=== PATIENT | female | born 1980 | race Caucasian/White ===

== ENCOUNTER 2017-08-17 15:25 | Emergency (ER) | payer MEDICARE, MEDICAID, SELFPAY ==
[2017-08-17 15:27] VITALS: BP 151/95; PULSE 98; RESP 16; TEMP 36.9; O2SAT 98; BMI 35.0
--- NOTE | 2017-08-17 15:44 | CT_ITS ---
STUDY: CT ABDOMEN AND PELVIS WITHOUT CONTRAST REASON FOR EXAM: Female, 36 years old. Right-sided abdominal pain. RADIATION DOSAGE (If Supplied By Facility): CTDIvol = ( 19.46 ) mGy, DLP = ( 1079.55 ) mGycm TECHNIQUE: Transaxial images were obtained from the dome of the diaphragm to the symphysis pubis without oral contrast, and without intravenous contrast. Sagittal and coronal images were reconstructed. Individualized dose optimization techniques were used for this CT. COMPARISON: 09/09/2013. FINDINGS: The visualized lung bases are unremarkable. The visualized portions of the heart are within normal limits. There is decreased attenuation of the liver consistent with steatosis. Marked hepatomegaly. There are surgical clips in the gallbladder fossa consistent with a prior cholecystectomy. Normal spleen. Normal pancreas. Normal bilateral adrenal glands. No acute abnormality of the kidneys. Both kidneys appear to have numerous punctate nonobstructing stones in all segments. No hydronephrosis on either side. Normal renal contours. Evaluation of the GI tract is limited by absence of oral contrast. Cannot exclude stomach wall thickening. No dilated loops of bowel or evidence for obstruction. Cannot exclude segmental thickening of the [place] of the small or large bowel. Cannot exclude enteritis or colitis. Moderate diffuse fecal retention. Appendix within normal limits. Normal abdominal aorta. Normal inferior vena cava. Normal retroperitoneum. Stable appearance of embolization coils in the left retroperitoneum and left lower quadrant. Normal urinary bladder. There is absence of the uterus consistent with a prior hysterectomy. Normal abdominal wall. There are diffuse degenerative changes of the visualized lumbar spine. CT/Abdomen/Pelvis without Cont IMPRESSION: No definite acute abnormality. Marked hepatomegaly. Numerous tiny bilateral renal stones without current obstruction. Electronically Signed: Guillermo Echevarria MD at 17:26 EDT , Service support ,
--- NOTE | 2017-08-17 15:47 | ED.DCSUM_ITS ---
- ER Visit Summary Date of Service: 08/17/17 Chief Complaint: Abdominal pain History of Present Illness: The patient is a 36 F who presents with right upper quadrant abdominal pain that began earlier this morning. Patient states she had some mild pain prior to this developed sudden onset of right upper quadrant sharp pain this morning. Patient describes the pain as cramping and stabbing. Patient states the pain radiates into her right shoulder. Patient denies any nausea or vomiting. Patient states her pain is worse with movement. Patient denies any diarrhea or constipation. Patient denies any dysuria or hematuria. Physical Examination: Vital signs are stable. Patient is afebrile. Patient is in no acute distress. Oral mucosa is pink and moist. Neck is supple. Trachea is midline. Heart was regular rate and rhythm. Lungs are clear and equal bilaterally. There is good respiratory effort noted. Abdomen is soft. Sounds are normal. There is tenderness over the right upper quadrant. There is no rebound or guarding. There is a positive Gorman sign. Cranial nerves II through XII are intact. There are no focal motor or sensory deficits noted. The remaining physical exam is within normal limits. Test Results: CBC and comprehensive metabolic profile were essentially within normal limits with the exception of an elevated glucose of 517. Alk phos was only slightly elevated at 184. Lipase was slightly elevated at 403. Urinalysis does show evidence of urinary tract infection. CT scan of the abdomen and pelvis does not show any acute abnormalities. Emergency Department Course and Treatment: She was given a dose of [place] initially. Patient was given an injection of Humalog here. Patient felt better on reevaluation. Repeat BGT was 341. Patient was given a second dose of [place] here. Treatment Plan: Patient was given a prescription for Cipro. Patient was given a prescription for 3 days of [place]. Disposition: Discharge home Impression: Right upper quadrant abdominal pain This note was generated with [employer] dictation software. It may contain incorrect words, spelling, and punctuation that were not noted in review of the chart prior to signing ED Disposition - Plan for ED Patient: Disposition: Home or Assisted Living Chief Complaint: Abd Pain Diagnosis: Right upper quadrant abdominal pain of unknown etiology Instructions: ED Abdominal Pain Unkn Cause Prescriptions: Hydrocodone/Acetaminophen [[place] 5-325 Tablet] 1 ea PO Q6H PRN PRN #12 tab PRN Reason: Pain Ciprofloxacin [Cipro] 500 mg PO BID #6 tab Referrals: Chris Espinal MD [Primary Care Provider] -
[2017-08-17 16:13] LABS: Basophil# 0.04 X10^3/uL; Basophil% 0.6 % (0-1); Eosinophil# 0.52 X10^3/uL; Eosinophils% 7.2 % (0-5); Hematocrit 40.3 % (37-47); Hemoglobin 13.3 g/dl (12.0-15.0); Lymphocyte % 30.5 % (19-41); Mean Corpuscular Hgb 26.7 pg (27.0-32.0); Mean Corpuscular Volume 80.9 fL (81-99); Mean Platelet Vol. 11.2 fl (6.2-12.0); Monocyte% 5.5 % (0-10); Neutrophil # 4.01 X10^3/uL (2.7-7.7); Neutrophil % 55.6 % (47-70); Platelet Count 225 K/mm3 (150-450); RBC Distribution Width CV 14.3 % (11.6-14.6); RBC Distribution Width SD 40.9 fl (35.1-43.9); Red Blood Count 4.98 M/mm3 (4.2-5.4); White Blood Count 7.2 K/mm3 (4.4-11.0)
[2017-08-17 16:17] LABS: POSITIVE COUNT NO; POSITIVE DIFFERENTIAL NO; POSITIVE MORPHOLOGY NO
[2017-08-17 16:40] LABS: ALB/GLOB Ratio 0.9 RATIO (0.9-2.4); AST(SGOT) 21 U/L (15-37); Alanine Aminotransfer ALT/SGPT 38 U/L (13-56); Albumin, Serum 3.7 g/dL (3.2-5.0); Alkaline Phosphatase 184 U/L (45-117); Anion Gap 10 (5-15); BUN 21 mg/dL (7-18); BUN/Creat Ratio 17.8 RATIO (10-20); Calcium,Total 8.6 mg/dL (8.5-10.1); Chloride 99 mmol/L (98-107); Creatinine, Serum 1.18 mg/dL (0.55-1.02); EST Glomerular Filtration Rate 55 mL/min (>60); Est Glom Filt Rate - Afr Amer 67 mL/min (>60); Estimated Creatinine Clearance 62.29 ml/min; Globulin 4.2 g/dL (2.2-4.2); Glucose 517 mg/dL (74-106); Lipase 403 U/L (73-393); Potassium 4.4 mmol/L (3.5-5.1); Protein, Total 7.9 g/dL (6.4-8.2); Sodium Level 132 mmol/L (136-145)
[2017-08-17] MEDS: HYDROcodone Bitartrate/Apap 5/325 Tablet PO ×2 (17:41→19:41)
[2017-08-17 17:43] VITALS: BP 125/82; PULSE 88; RESP 18; O2SAT 96
[2017-08-17 17:47] LABS: Mucous, Urine 0 SEEN /hpf (<or=2+)
[2017-08-17 17:51] LABS: Color, Urine Yellow (Yellow); Glucose, Dipstick 1000 mg/dl (Normal); Ketone-Dipstick Negative (Negative); Leukocyte Esterase-Dipstick 500 /ul (Negative); Nitrite-Dipstick Negative (Negative); Occult Blood-Urine 10 /ul (Negative); Protein-Dipstick 15 mg/dl (Negative); Specific Gravity, Urine 1.015 (1.002-1.030); Urine Bilirubin Dipstick Negative (Negative); Urine Clarity Sl. Cloudy (Clear); Urine Urobilinogen Normal (Normal)
[2017-08-17 18:15] LABS: Bacteria RARE /hpf (None Seen); Red Blood Cells-Urine 0-5 SEEN /hpf (0-5); Squamous Epithelial Cells - UA 0-5 SEEN /hpf (5-10); White Blood Cells 5-10 SEEN /hpf (0-5)
[2017-08-17 19:15] VITALS: BP 122/77; PULSE 86; RESP 16; O2SAT 98
[2017-08-17 19:20] LABS: Bedside Glucose 341 mg/dL (70-110)
[2017-08-17 19:38] VITALS: BP 122/77; PULSE 86; RESP 16; O2SAT 98
== END 2017-08-17 19:45 | disposition home or self-care (01) ==
PROVIDERS: Emergency Provider Emergency Medicine; Family Provider Family Medicine; PCP Family Medicine
DX: R10.11 Right upper quadrant pain (principal); N39.0 Urinary tract infection, site not specified; E11.9 Type 2 diabetes mellitus without complications; M79.7 Fibromyalgia; Q27.30 Arteriovenous malformation, site unspecified; M06.9 Rheumatoid arthritis, unspecified
CPT/HCPCS: 74176; 80053; 81001; 82962; 83690; 85025; 99284; A4216

== ENCOUNTER 2017-09-07 21:17 | Emergency (ER) | payer MEDICARE, SELFPAY ==
[2017-09-07 21:18] VITALS: BP 136/81; PULSE 102; RESP 17; TEMP 38.1; O2SAT 98; BMI 35.5
--- NOTE | 2017-09-07 21:21 | NURSING ---
CALLED FOR EKG PER RN REQUEST, PULLED OLD EKG'S FOR
--- NOTE | 2017-09-07 21:44 | EKG12_ITS ---
Test Reason : CP Blood Pressure : / mmHG Vent. Rate : 102 BPM Atrial Rate : 102 BPM P-R Int : 128 ms QRS Dur : 074 ms QT Int : 320 ms P-R-T Axes : 042 025 031 degrees QTc Int : 417 ms Sinus tachycardia Otherwise normal ECG Confirmed by ANIKA ELIZONDO, STACI ([id number]), subeditor ALEKSANDAR ZAMBRANO ([id number]) on 09/10/2017 3:22:59 PM Referred By: Confirmed By:STACI DONALDSON MD
--- NOTE | 2017-09-07 21:44 | RAD_ITS ---
STUDY: X-RAY CHEST REASON FOR EXAM: Female, 36 years old. Pain. TECHNIQUE: Single AP portable view of the chest. COMPARISON: February 06, 2015. FINDINGS: The lungs are clear and expanded. There is no demonstrated pleural abnormality. Normal size heart. Normal mediastinum and jose daniel. Normal visualized pulmonary arteries. Normal visualized aortic arch and descending thoracic aorta. Normal visualized thoracic spine. Normal visualized ribs, clavicles, and shoulders. There is no demonstrated abnormality of the visualized soft tissue structures of the upper abdomen. RAD/Chest 1 View (Portable) IMPRESSION: Normal x-ray examination of the chest. Electronically Signed: Calderon Mojica MD at 22:23 EDT , Service support ,
--- NOTE | 2017-09-07 21:48 | ED.DCSUM_ITS ---
- ER Visit Summary Date of Service: 09/07/17 Chief Complaint: Chest pain History of Present Illness: The patient is a 36 F presents with continuous chest pain for the past 2 hours. Pain is in the left side of her chest. Pain started at rest. She denies shortness of breath. No nausea, vomiting, diarrhea. She does have a fever which she was unaware of. She denies cough. Nothing seems to make this better or worse. It is not worsened by deep inspiration. She has history of diabetes, hypercholesteremia. No family history of early heart disease. She is not a smoker. No PE/DVT risk factors. Physical Examination: Vitals are stable. Temperature 100.5. Alert no acute distress. HEENT exam is unremarkable. Neck is supple. Lungs are clear and equal bilaterally. Heart is regular rate and rhythm. Abdomen is soft nontender nondistended. Extremities are unremarkable. Skin is warm and dry. No rash No focal neurologic deficit. Remainder of exam is unremarkable. Emergency Department Course and Treatment: Patient is given aspirin, Dilaudid, Zofran. Her heart score is 1. EKG is sinus tachycardia rate of 102. She was given IV fluids, Tylenol. CBC is normal. Chemistries show glucose 303, creatinine 1.05. Troponin is negative. D-dimer is 0.49. Chest x-ray is normal. Repeat temperature is 98.5. She was given Toradol IV. She is feeling improved on reevaluation. Repeat EKG is sinus rate of 85 with no acute changes. Will obtain delta troponin. Disposition: [] Impression: Atypical chest pain This note was generated with [employer] software. It may contain incorrect words, spelling, and punctuation that were not noted in review of the chart prior to signing <Cookie Finney - Last Filed: 09/08/17 00:17> - ER Visit Summary Date of Service: 09/08/17 Patient was endorsed to me by the outgoing physician. Delta troponin was checked was found to be negative. Patient was given a dose of [place], she was discharged with outpatient follow-up. Disposition: Discharged Diagnosis: 1. Atypical chest pain This note was generated with [employer] software. It may contain incorrect words, spelling, and punctuation that were not noted in review of the chart prior to signing <Fam Velasquez - Last Filed: 09/08/17 01:46> ED Disposition <Cookie Finney - Last Filed: 09/08/17 00:17> <Fam Velasquez - Last Filed: 09/08/17 01:46> - Plan for ED Patient: Disposition: Home or Assisted Living Chief Complaint: Chest Pain Diagnosis: Chest pain Instructions: ED Chest Pain Atypical Unkn Cause Referrals: Chris Espinal MD [Primary Care Provider] - 3-5 Days
[2017-09-07 21:55] LABS: Absolute Lymphocyte Count 3.32 X10^3/ul (0.83-4.51); Absolute Neutrophil Count 3.8 X10^3/uL (2.0-7.7); Basophil# 0.06 X10^3/uL; Basophil% 0.7 % (0-1); Eosinophil# 0.47 X10^3/uL; Eosinophils% 5.8 % (0-5); Hematocrit 40.3 % (37-47); Hemoglobin 12.9 g/dl (12.0-15.0); Lymphocyte # 3.32 X10^3/ul (4.0); Lymphocyte % 40.7 % (19-41); Mean Corpuscular Hgb 26.5 pg (27.0-32.0); Mean Corpuscular Volume 82.8 fL (81-99); Mean Platelet Vol. 10.6 fl (6.2-12.0); Monocyte# 0.47 X10^3/uL; Monocyte% 5.8 % (0-10); Neutrophil % 46.6 % (47-70); POSITIVE COUNT NO; POSITIVE DIFFERENTIAL NO; POSITIVE MORPHOLOGY NO; Platelet Count 297 K/mm3 (150-450); RBC Distribution Width CV 15.2 % (11.6-14.6); Red Blood Count 4.87 M/mm3 (4.2-5.4); White Blood Count 8.2 K/mm3 (4.4-11.0)
[2017-09-07] MEDS: 0.9% Normal Saline 1,000 ML 1000 ML IV (21:58)
[2017-09-07] MEDS: Ondansetron 4 MG/2 ML Vial IV (21:58)
[2017-09-07] MEDS: Aspirin 81 MG TAB.CHEW 324 MG PO (21:58)
[2017-09-07 21:59] LABS: D-Dimer Quantitative (DVT/PE) 0.49 FEU/ug/m (0.27-0.49)
[2017-09-07] MEDS: HYDROmorphone 1 MG/ML Syringe IV (21:59)
[2017-09-07 22:05] LABS: Anion Gap 8 (5-15); BUN 14 mg/dL (7-18); BUN/Creat Ratio 13.3 RATIO (10-20); Calcium,Total 8.6 mg/dL (8.5-10.1); Chloride 107 mmol/L (98-107); Creatinine, Serum 1.05 mg/dL (0.55-1.02); EST Glomerular Filtration Rate 63 mL/min (>60); Est Glom Filt Rate - Afr Amer 76 mL/min (>60); Estimated Creatinine Clearance 70.01 ml/min; Glucose 303 mg/dL (74-106); Potassium 4.2 mmol/L (3.5-5.1); Sodium Level 139 mmol/L (136-145)
[2017-09-07] MEDS: Acetaminophen 500 MG Tablet 1000 MG PO (22:45)
[2017-09-07 22:46] VITALS: BP 112/71; PULSE 84; RESP 18; O2SAT 97
[2017-09-07 23:16] VITALS: BP 108/74; PULSE 89; RESP 16; O2SAT 94
[2017-09-07 23:24] LABS: Mucous, Urine 0 SEEN /hpf (<or=2+)
[2017-09-07 23:29] LABS: Color, Urine Yellow (Yellow); Glucose, Dipstick 1000 mg/dl (Normal); Ketone-Dipstick Negative (Negative); Leukocyte Esterase-Dipstick 25 /ul (Negative); Nitrite-Dipstick Negative (Negative); Occult Blood-Urine 10 /ul (Negative); Protein-Dipstick 15 mg/dl (Negative); Urine Bilirubin Dipstick Negative (Negative); Urine Clarity Sl. Cloudy (Clear); Urine Urobilinogen Normal (Normal)
[2017-09-07 23:43] LABS: Bacteria 2+ /hpf (None Seen); Red Blood Cells-Urine 0-5 SEEN /hpf (0-5); Squamous Epithelial Cells - UA 5-10 SEEN /hpf (5-10); White Blood Cells 0-5 SEEN /hpf (0-5)
--- NOTE | 2017-09-07 23:43 | EKG12_ITS ---
Test Reason : REPEAT EKG Blood Pressure : / mmHG Vent. Rate : 085 BPM Atrial Rate : 085 BPM P-R Int : 132 ms QRS Dur : 076 ms QT Int : 364 ms P-R-T Axes : 054 021 018 degrees QTc Int : 433 ms Normal sinus rhythm Normal ECG Confirmed by ANIKA ELIZONDO, STACI ([id number]), newspaper editor managing ALEKSANDAR ZAMBRANO ([id number]) on 09/10/2017 3:23:49 PM Referred By: JANA Confirmed By:STACI DONALDSON MD
[2017-09-07] MEDS: Ketorolac 30 MG/ML Syringe IV (23:56)
--- NOTE | 2017-09-07 23:57 | ED.DEP ---
ED Disposition - Plan for ED Patient: Chief Complaint: Chest Pain Instructions: ED Chest Pain Atypical Unkn Cause Referrals: Chris Espinal MD [Primary Care Provider] -
[2017-09-08 00:11] VITALS: BP 112/71; PULSE 90; RESP 17; O2SAT 95
[2017-09-08 01:37] VITALS: BP 107/82; PULSE 78; RESP 16; O2SAT 96
[2017-09-08] MEDS: HYDROcodone Bitartrate/Apap 5/325 Tablet PO (01:57)
[2017-09-08 01:59] VITALS: BP 107/82; PULSE 76; RESP 16; O2SAT 96
--- NOTE | 2017-09-08 01:59 | ED.RN ---
IV DC'ED, CATHETER INTACT, SMALL GAUZE DRESSING PLACED. DISCHARGE INSTRUCTIONS GIVEN TO AND REVIEWED WITH PATIENT, PATIENT DENIES QUESTIONS OR CONCERNS AND VOICES UNDERSTANDING OF DISCHARGE INSTRUCTIONS. PT AMBULATES OUT OF ROOM WITHOUT DIFFICULTY.
== END 2017-09-08 02:00 | disposition home or self-care (01) ==
PROVIDERS: Emergency Medicine; Emergency Provider Emergency Medicine; Family Provider Family Medicine; PCP Family Medicine
DX: R07.89 Other chest pain (principal); E11.9 Type 2 diabetes mellitus without complications; E78.00 Pure hypercholesterolemia, unspecified; M79.7 Fibromyalgia
CPT/HCPCS: 36415; 71045; 80048; 81001; 84484; 85025; 85379; 93005; 96361; 96374; 96375; 99285; J7030; A4216; J2405

== ENCOUNTER 2017-10-08 01:04 | Emergency (ER) | payer MEDICARE, SELFPAY ==
[2017-10-08 01:06] VITALS: BP 140/92; PULSE 86; RESP 16; TEMP 36.8; O2SAT 97; BMI 34.5
--- NOTE | 2017-10-08 01:34 | CT_ITS ---
STUDY: CT ABDOMEN AND PELVIS WITHOUT CONTRAST REASON FOR EXAM: Female, 37 years old. Right flank pain, sharp, history of hysterectomy, oophorectomy right, cholecystectomy, RADIATION DOSAGE (If Supplied By Facility): CTDIvol = ( 16.96 ) mGy, DLP = ( 953.47 ) mGycm TECHNIQUE: Transaxial 2.5 mm images were obtained from the dome of the diaphragm to the symphysis pubis without oral contrast, and without intravenous contrast. Sagittal and coronal images were reconstructed. Noncontrast Individualized dose optimization techniques were used for this CT. COMPARISON: CT abdomen pelvis 06/19/2017. 09/09/2013. 04/25/2013. FINDINGS: Minimal stable groundglass opacification in the right base. There is coronary artery calcification. Stable minimal anterior right lateral pericardial thickening. There is decreased attenuation of the enlarged liver consistent with steatosis. Right hepatic lobe measures craniocaudally 20.5 cm. There are surgical clips in the gallbladder fossa consistent with a prior cholecystectomy. Normal spleen. Normal pancreas. Normal bilateral adrenal glands. There is no right obstructive uropathy, right renal or ureteral calculi. Punctate nonobstructing right renal calculi. Normal visualized stomach. Normal small intestine. Normal colon. The appendix is visualized and appears normal. Image 96- 114 series 2. The appendix courses into the subhepatic space. Normal abdominal aorta. Normal inferior vena cava. Normal retroperitoneum. Metallic coils along the proximal and distal left gonadal vessels consistent with embolization. Normal urinary bladder. There is absence of the uterus consistent with a prior hysterectomy. Normal appearing bilateral adnexa. Surgical changes along the right adnexa. There is a small umbilical hernia containing fat. Obesity. There are degenerative changes of the visualized lumbar spine. CT/Abdomen/Pelvis without Cont IMPRESSION: 1. There is no obstructive uropathy, obstructive renal or ureteral calculi. 2. There is no appendicitis, colitis, diverticulitis, ascites, abscess, collection, perforation or obstruction. 3. Punctate nonobstructing left renal calculi, hepatomegaly, hepatic steatosis and postsurgical changes are stable findings. 4. Small fat-containing umbilical hernia, obesity and degenerative changes are stable. Electronically Signed: Melita Vuong MD at 4:01 EDT , Service support ,
[2017-10-08 01:39] LABS: Mucous, Urine 0 SEEN /hpf (<or=2+); Red Blood Cells-Urine 0 SEEN /hpf (0-5)
[2017-10-08] MEDS: HYDROmorphone 1 MG/ML Syringe IV (01:40)
[2017-10-08] MEDS: Ondansetron 4 MG/2 ML Vial IV (01:40)
[2017-10-08 01:41] LABS: Color, Urine Yellow (Yellow); Glucose, Dipstick 1000 mg/dl (Normal); Ketone-Dipstick Negative (Negative); Leukocyte Esterase-Dipstick 100 /ul (Negative); Nitrite-Dipstick Negative (Negative); Occult Blood-Urine Negative /ul (Negative); Protein-Dipstick Negative (Negative); Urine Bilirubin Dipstick Negative (Negative); Urine Clarity Sl. Cloudy (Clear); Urine Urobilinogen Normal (Normal)
[2017-10-08 01:41] LABS: Absolute Lymphocyte Count 4.71 X10^3/ul (0.83-4.51); Absolute Neutrophil Count 9.5 X10^3/uL (2.0-7.7); Basophil% 0.6 % (0-1); Eosinophils% 1.9 % (0-5); Hematocrit 42.7 % (37-47); Hemoglobin 14.5 g/dl (12.0-15.0); Lymphocyte # 4.71 X10^3/ul (4.0); Lymphocyte % 29.7 % (19-41); Mean Corpuscular Hgb 26.4 pg (27.0-32.0); Mean Corpuscular Volume 77.8 fL (81-99); Mean Platelet Vol. 10.6 fl (6.2-12.0); Monocyte# 1.05 X10^3/uL; Monocyte% 6.6 % (0-10); Neutrophil # 9.46 X10^3/uL (2.7-7.7); Neutrophil % 59.7 % (47-70); Platelet Count 364 K/mm3 (150-450); RBC Distribution Width CV 15.5 % (11.6-14.6); RBC Distribution Width SD 43.2 fl (35.1-43.9); Red Blood Count 5.49 M/mm3 (4.2-5.4); White Blood Count 15.9 K/mm3 (4.4-11.0)
[2017-10-08 01:43] LABS: POSITIVE COUNT NO; POSITIVE DIFFERENTIAL NO; POSITIVE MORPHOLOGY NO
[2017-10-08 01:52] LABS: Anion Gap 10 (5-15); BUN 21 mg/dL (7-18); Chloride 100 mmol/L (98-107); Creatinine, Serum 1.05 mg/dL (0.55-1.02); EST Glomerular Filtration Rate 63 mL/min (>60); Est Glom Filt Rate - Afr Amer 76 mL/min (>60); Estimated Creatinine Clearance 69.34 ml/min; Glucose 263 mg/dL (74-106); Potassium 3.9 mmol/L (3.5-5.1); Sodium Level 135 mmol/L (136-145)
[2017-10-08 01:56] LABS: Bacteria RARE /hpf (None Seen); Squamous Epithelial Cells - UA 0-5 SEEN /hpf (5-10); White Blood Cells 5-10 SEEN /hpf (0-5)
[2017-10-08 03:11] VITALS: RESP 17
[2017-10-08] MEDS: oxyCODONE 5 MG Tablet PO (03:42)
--- NOTE | 2017-10-08 04:17 | ED.DCSUM_ITS ---
- ER Visit Summary Date of Service: 10/08/17 Chief Complaint: Abdominal pain History of Present Illness: The patient is a 37 F right mid abdominal pain 1 hour prior to arrival with nausea. No vomiting or diarrhea. No urinary symptoms. Denies history of kidney stones. States pain is sharp and 7 out of 10. History of diabetes with gastroparesis. History of GI bleeds in the past. Physical Examination: General: Alert and oriented ?3, mild distress HEENT: Normocephalic, atraumatic. Moist mucosa membranes Neck: supple, nontender. Cardiovascular: Regular rate and rhythm, no murmurs Respiratory: Normal breath sounds, symmetric, no distress Abdomen: Soft, mild right mid abdominal tenderness, nondistended. Negative Gorman's or McBurney's. No groin tenderness. Back: No CVA tenderness bilaterally Extremities: Nontender, no edema, pulses intact ?4 Neuro: no focal neurological deficits. Test Results: WBC 15.9. Hemoglobin 14.5. Creatinine 1.05. UA no leukocytes 100, WBCs 5-10. Urine culture pending. CT abdomen pelvis no acute process. Emergency Department Course and Treatment: Patient sudden onset of pain states 7 out of 10. Records reviewed noted she had similar complaints approximately [address] scan noting nephrolithiasis. Discuss risks and benefits of imaging she agrees to proceed. Renal stone protocol CT scan results negative. Urine notes leukocytes and white blood cell counts. She is asymptomatic. Urine culture sent. No antibiotics at this time. History of Dilaudid and given oral oxycodone. Discussed negative workup with patient and follow-up with her PCP. She will use Tylenol as needed. All questions were answered. Treatment Plan: [] Disposition: Discharge Impression: Nonspecific abdominal pain This note was generated with [employer] dictation software. It may contain incorrect words, spelling, and punctuation that were not noted in review of the chart prior to signing ED Disposition - Plan for ED Patient: Disposition: Home or Assisted Living Chief Complaint: Flank Pain Diagnosis: Nonspecific abdominal pain Instructions: ED Abdominal Pain Unkn Cause Referrals: Chris Espinal MD [Primary Care Provider] - 3-5 Days
[2017-10-08 04:28] VITALS: BP 115/60; PULSE 83; RESP 17; O2SAT 97
== END 2017-10-08 04:29 | disposition home or self-care (01) ==
PROVIDERS: Emergency Provider Emergency Medicine; Family Provider Family Medicine; PCP Family Medicine
DX: R10.9 Unspecified abdominal pain (principal); E11.43 Type 2 diabetes mellitus with diabetic autonomic (poly)neuropathy; K31.84 Gastroparesis; Z79.4 Long term (current) use of insulin; Z79.891 Long term (current) use of opiate analgesic; Z79.899 Other long term (current) drug therapy
CPT/HCPCS: 74176; 80048; 81001; 85025; 87086; 87088; 96374; 96375; 99285; J7030; J2405

== ENCOUNTER 2017-10-24 09:40 | Emergency (ER) | payer MEDICARE, SELFPAY ==
[2017-10-24 09:41] VITALS: BP 142/96; PULSE 87; RESP 15; TEMP 35.5; BMI 34.4
--- NOTE | 2017-10-24 09:51 | ED.DEP ---
ED Disposition - Plan for ED Patient: Chief Complaint: Dental Instructions: ED Tooth Pain Prescriptions: Hydrocodone Bitart/Apap 5-325 [[place] 5MG-325MG] 1 tablet PO Q6H PRN PRN 2 Days #6 tablet PRN Reason: Pain Penicillin V Potassium 500 mg PO 4X/DAY #40 tablet Referrals: Chris Espinal MD [Primary Care Provider] -
--- NOTE | 2017-10-24 09:53 | DCINST.ED_ITS ---
ED Disposition - Plan for ED Patient: Chief Complaint: Dental Instructions: ED Tooth Pain Prescriptions: Hydrocodone Bitart/Apap 5-325 [[place] 5MG-325MG] 1 tablet PO Q6H PRN PRN 2 Days # 6 tablet PRN Reason: Pain Penicillin V Potassium 500 mg PO 4X/DAY #40 tablet Referrals: Chris Espinal MD [Primary Care Provider] -
--- NOTE | 2017-10-24 09:54 | ED.VISSUMM ---
- ER Visit Summary Date of Service: 10/24/17 Chief Complaint: Dental pain History of Present Illness: The patient is a 37 F presenting with dental pain. Patient states this started yesterday. Pain is in her front 2 teeth. She denies fever. She has sensation of swelling to the right maxilla. She has tried Aleve and ibuprofen at home. She does not currently have a dentist. No other complaints. Physical Examination: Vitals are stable. Patient is afebrile. Alert no acute distress. HEENT exam: tenderness to front 2 teeth, no fluctuance of gums. No sublingual edema. No facial swelling Neck is supple. Lungs are clear and equal bilaterally. Heart is regular rate and rhythm. Extremities are unremarkable. Remainder of exam is unremarkable. Emergency Department Course and Treatment: She is advised to continue ibuprofen. She is given a short course of [place]. She given prescription for penicillin. Advised to follow-up with a dentist, she is given a dental referral list. Advised return ED if worsening complaints. Disposition: Discharge home Impression: Odontalgia This note was generated with [employer] dictation software. It may contain incorrect words, spelling, and punctuation that were not noted in review of the chart prior to signing ED Disposition - Plan for ED Patient: Chief Complaint: Dental Instructions: ED Tooth Pain Prescriptions: Hydrocodone Bitart/Apap 5-325 [[place] 5MG-325MG] 1 tablet PO Q6H PRN PRN 2 Days #6 tablet PRN Reason: Pain Penicillin V Potassium 500 mg PO 4X/DAY #40 tablet Referrals: Chris Espinal MD [Primary Care Provider] -
--- NOTE | 2017-10-24 09:57 | ED.DCSUM_ITS ---
- ER Visit Summary Date of Service: 10/24/17 Chief Complaint: Dental pain History of Present Illness: The patient is a 37 F presenting with dental pain. Patient states this started yesterday. Pain is in her front 2 teeth. She denies fever. She has sensation of swelling to the right maxilla. She has tried Aleve and ibuprofen at home. She does not currently have a dentist. No other complaints. Physical Examination: Vitals are stable. Patient is afebrile. Alert no acute distress. HEENT exam: tenderness to front 2 teeth, no fluctuance of gums. No sublingual edema. No facial swelling Neck is supple. Lungs are clear and equal bilaterally. Heart is regular rate and rhythm. Extremities are unremarkable. Remainder of exam is unremarkable. Emergency Department Course and Treatment: She is advised to continue ibuprofen. She is given a short course of [place]. She given prescription for penicillin. Advised to follow-up with a dentist, she is given a dental referral list. Advised return ED if worsening complaints. Disposition: Discharge home Impression: Odontalgia This note was generated with [employer] dictation software. It may contain incorrect words, spelling, and punctuation that were not noted in review of the chart prior to signing ED Disposition - Plan for ED Patient: Chief Complaint: Dental Instructions: ED Tooth Pain Prescriptions: Hydrocodone Bitart/Apap 5-325 [[place] 5MG-325MG] 1 tablet PO Q6H PRN PRN 2 Days # 6 tablet PRN Reason: Pain Penicillin V Potassium 500 mg PO 4X/DAY #40 tablet Referrals: Chris Espinal MD [Primary Care Provider] -
[2017-10-24 10:07] VITALS: RESP 16
== END 2017-10-24 10:09 | disposition home or self-care (01) ==
LOC: ED 09:55
PROVIDERS: Emergency Provider Emergency Medicine; Family Provider Family Medicine; PCP Family Medicine
DX: K08.89 Other specified disorders of teeth and supporting structures (principal); E11.9 Type 2 diabetes mellitus without complications; E78.00 Pure hypercholesterolemia, unspecified; Z79.4 Long term (current) use of insulin
CPT/HCPCS: 99282

== ENCOUNTER 2017-11-12 19:28 | Observation (INO) | payer MEDICARE, SELFPAY ==
[2017-11-12] VITALS (8 sets, daily range): BP systolic 117–136; BP diastolic 60–91; PULSE 77–107; RESP 14–18; TEMP 35.9–37.1; O2SAT 94–97; BMI 33.7
--- NOTE | 2017-11-12 19:53 | EKG12_ITS ---
Test Reason : Blood Pressure : / mmHG Vent. Rate : 082 BPM Atrial Rate : 082 BPM P-R Int : 132 ms QRS Dur : 080 ms QT Int : 382 ms P-R-T Axes : 071 023 005 degrees QTc Int : 446 ms Normal sinus rhythm Low voltage QRS Septal infarct , age undetermined Abnormal ECG Confirmed by ANIKA ELIZONDO, STACI ([id number]), content editor ALEKSANDAR ZAMBRANO ([id number]) on 11/15/2017 2:14:45 PM Referred By: GUZMAN Confirmed By:STACI DONALDSON MD
--- NOTE | 2017-11-12 19:53 | CT_ITS ---
Exam: CTA of the neck with contrast and 2-D reconstructions. HISTORY: Headache. COMPARISON: None TECHNIQUE: Patient injected with 100 cc Isovue-370 IV. Axial images were followed with 2-D MIPS reconstructions reviewed at a separate workstation. FINDINGS: Normal appearance of the visualized aortic arch. Normal branching pattern of the great vessels. Common carotid arteries are normal for age. No significant calcified plaque of the carotid bulbs. No measurable stenosis at the carotid bulb or the origins of either ICA. Normal appearance of the cervical ICAs bilaterally to the base of the brain. Normal origin and appearance of the vertebral arteries. The right vertebral artery is dominant. Normal visualized basilar artery. Visualized soft tissues including the lung apices and visualized cervical spine show no gross acute abnormalities. CT/CTA Neck W/WO Contrast IMPRESSION: CTA of the neck vessels is normal for age. Electronically Signed: Guillermo Echevarria MD at 21:23 EDT , Service support ,
--- NOTE | 2017-11-12 19:53 | CT_ITS ---
STUDY: CTA OF THE BRAIN REASON FOR EXAM: Female, 37 years old. Headache and right-sided weakness. RADIATION DOSAGE (If Supplied By Facility): CTDIvol = ( 27.54 ) mGy, DLP = ( 1588.11 ) mGycm TECHNIQUE: CT angiography was performed with a multi-detector CT scanner. Data acquisition was obtained from the skull base through the vertex following intravenous administration of ml of . MIP images were reconstructed from the axial data set. Post-processing of the angiographic images was performed, with multiplanar reformation and 3D reconstruction. Individualized dose optimization techniques were used for this CT. COMPARISON: None. FINDINGS: Normal bilateral petrous carotid arteries. Normal right cavernous carotid artery with a normal supraclinoid bifurcation. Normal left cavernous carotid artery with a normal supraclinoid bifurcation. Normal right A1 segments of the anterior cerebral artery. Normal left A1 segments of the anterior cerebral artery. Normal intact anterior communicating artery (ACOM). Normal bilateral A2 segments of the anterior cerebral arteries. Normal right M1 and M2 segments of the middle cerebral arteries, with a normal M1 bifurcation. Normal left M1 and M2 segments of the middle cerebral arteries, with a normal M1 bifurcation. Normal right posterior communicating artery (PCOM). Normal left posterior communicating artery (PCOM). Normal bilateral vertebral arteries. Normal basilar artery with a normal basilar bifurcation. The visualized bilateral superior cerebellar (SCA) arteries are normal. Normal bilateral P1, P2 and visualized P3 segments of the posterior cerebral arteries. There is no demonstrated aneurysm of the [place]. There is no demonstrated abnormality of the visualized brain. CT/CTA Head W/WO Contrast IMPRESSION: Normal [place] without a demonstrated aneurysm or hemodynamically significant stenosis. Electronically Signed: Guillermo Echevarria MD at 21:21 EDT , Service support ,
[2017-11-12] MEDS: Metoclopramide 10 MG/2 ML Vial IV (20:08)
[2017-11-12] MEDS: 0.9% Normal Saline 1,000 ML 999 ML IV (20:08)
[2017-11-12] MEDS: MethylPREDNISolone 125 MG/2 ML Vial IV (20:08)
[2017-11-12] MEDS: DiphenhydrAMINE 50 MG/ML Syringe IV (20:08)
[2017-11-12 20:11] LABS: Absolute Lymphocyte Count 2.32 X10^3/ul (0.83-4.51); Absolute Neutrophil Count 3.5 X10^3/uL (2.0-7.7); Basophil# 0.03 X10^3/uL; Basophil% 0.4 % (0-1); Eosinophil# 0.46 X10^3/uL; Eosinophils% 6.7 % (0-5); Hematocrit 40.2 % (37-47); Lymphocyte # 2.32 X10^3/ul (4.0); Lymphocyte % 33.7 % (19-41); Mean Corp Hgb Conc 32.3 g/gl (32-36); Mean Corpuscular Volume 80.4 fL (81-99); Mean Platelet Vol. 10.2 fl (6.2-12.0); Monocyte# 0.61 X10^3/uL; Monocyte% 8.9 % (0-10); Neutrophil # 3.45 X10^3/uL (2.7-7.7); Neutrophil % 50.2 % (47-70); POSITIVE COUNT NO; POSITIVE DIFFERENTIAL NO; POSITIVE MORPHOLOGY NO; Platelet Count 257 K/mm3 (150-450); RBC Distribution Width CV 15.8 % (11.6-14.6); RBC Distribution Width SD 45.9 fl (35.1-43.9); White Blood Count 6.9 K/mm3 (4.4-11.0)
[2017-11-12 20:17] LABS: Prothrombin Time (Protime)PT. 12.9 SECONDS (11.7-14.9)
[2017-11-12 20:18] LABS: Partial Thromboplast Time 26.2 Seconds (24.1-36.2)
[2017-11-12 20:27] LABS: Anion Gap 10 (5-15); BUN 16 mg/dL (7-18); Calcium,Total 8.8 mg/dL (8.5-10.1); Chloride 104 mmol/L (98-107); EST Glomerular Filtration Rate 67 mL/min (>60); Est Glom Filt Rate - Afr Amer 81 mL/min (>60); Estimated Creatinine Clearance 72.81 ml/min; Glucose 213 mg/dL (74-106); Potassium 3.5 mmol/L (3.5-5.1); Sodium Level 137 mmol/L (136-145)
--- NOTE | 2017-11-12 21:36 | ED.VISSUMM ---
- ER Visit Summary Date of Service: 11/12/17 Chief Complaint: Headache, right arm numbness and weakness History of Present Illness: The patient is a [address] Chris Espinal. She reports approximately 30 minutes ago she had the abrupt onset of a left-sided headache. She reports it was 10 out of 10 at worst and 7 out of 10 currently. States that that episode of 10 out of 10 lasted for approximately 5 minutes. She reports this is been accompanied by weakness and numbness in her right arm. Her right leg is not involved. She denies any slurred speech or a aphasia. She denies any double vision. She denies any vertigo. Review of systems: General: No fever, chills, cold sweats. Cardiovascular: No chest pain, palpitations. Respiratory: No cough, shortness of breath, dyspnea on exertion. Gastrointestinal: No abdominal pain, nausea, vomiting, diarrhea, melena, or hematochezia. Genitourinary: No dysuria, frequency, hematuria. Skin: No rash. Physical Examination: Vitals: Stable. Afebrile. General: Well-nourished and well-developed. Head: Normocephalic atraumatic. Neck: Supple, no lymphadenopathy. No JVD. Nontender. Cardiovascular: Regular rate and rhythm. No murmurs. Respiratory: No respiratory distress. Clear to auscultation bilaterally. Abdominal: Soft, nontender, nondistended, normal bowel sounds. No guarding, rebound, or peritoneal signs. Back: Nontender. Extremities: Nontender, no edema. Skin: Normal color, no rash. Neurologic: Alert and oriented ?3. Cranial nerves II through XII are intact. 3 out of 5 strength right upper extremity, 5 out of out of 5 strength otherwise. Decreased sensation to light touch right arm. Normal sensation to light touch otherwise. No hemineglect. Psych: Depressed affect. Test Results: EKG is sinus at 80 with no acute changes. Troponins negative. Coags are normal. Chem-7 is more for glucose of 213. CBC is more for reason of his a 7. CT brain shows no acute disease. CTA of the head shows normal [place] will no aneurysm or stenosis. CT of the neck is normal. Emergency Department Course and Treatment: Patient was treated with Reglan, Benadryl, and Solu-Medrol IV. On repeat exam she reports her headache is 6 out of 10 severity. She does have slightly increased strength on the right and the paresthesias have improved. Her NIH scale is 3. She is not a TPA candidate. When the CT returned without an intracranial hemorrhage she was given Toradol IV. Treatment Plan: Patient will be discussed with the hospitalist for admission and further evaluation. Disposition: Admitted in improved condition. Impression: 1. Cephalgia. 2. Right arm weakness/paresthesias. This note was generated with [employer] dictation software. It may contain incorrect words, spelling, and punctuation that were not noted in review of the chart prior to signing ED Disposition - Plan for ED Patient: Chief Complaint: Neuro S/Sx Referrals: Chris Espinal MD [Primary Care Provider] -
--- NOTE | 2017-11-12 21:39 | ED.DCSUM_ITS ---
- ER Visit Summary Date of Service: 11/12/17 Chief Complaint: Headache, right arm numbness and weakness History of Present Illness: The patient is a [address] Chris Espinal. She reports approximately 30 minutes ago she had the abrupt onset of a left- sided headache. She reports it was 10 out of 10 at worst and 7 out of 10 currently. States that that episode of 10 out of 10 lasted for approximately 5 minutes. She reports this is been accompanied by weakness and numbness in her right arm. Her right leg is not involved. She denies any slurred speech or a aphasia. She denies any double vision. She denies any vertigo. Review of systems: General: No fever, chills, cold sweats. Cardiovascular: No chest pain, palpitations. Respiratory: No cough, shortness of breath, dyspnea on exertion. Gastrointestinal: No abdominal pain, nausea, vomiting, diarrhea, melena, or hematochezia. Genitourinary: No dysuria, frequency, hematuria. Skin: No rash. Physical Examination: Vitals: Stable. Afebrile. General: Well-nourished and well-developed. Head: Normocephalic atraumatic. Neck: Supple, no lymphadenopathy. No JVD. Nontender. Cardiovascular: Regular rate and rhythm. No murmurs. Respiratory: No respiratory distress. Clear to auscultation bilaterally. Abdominal: Soft, nontender, nondistended, normal bowel sounds. No guarding, rebound, or peritoneal signs. Back: Nontender. Extremities: Nontender, no edema. Skin: Normal color, no rash. Neurologic: Alert and oriented ?3. Cranial nerves II through XII are intact. 3 out of 5 strength right upper extremity, 5 out of out of 5 strength otherwise. Decreased sensation to light touch right arm. Normal sensation to light touch otherwise. No hemineglect. Psych: Depressed affect. Test Results: EKG is sinus at 80 with no acute changes. Troponins negative. Coags are normal. Chem-7 is more for glucose of 213. CBC is more for reason of his a 7. CT brain shows no acute disease. CTA of the head shows normal [place] will no aneurysm or stenosis. CT of the neck is normal. Emergency Department Course and Treatment: Patient was treated with Reglan, Benadryl, and Solu-Medrol IV. On repeat exam she reports her headache is 6 out of 10 severity. She does have slightly increased strength on the right and the paresthesias have improved. Her NIH scale is 3. She is not a TPA candidate. When the CT returned without an intracranial hemorrhage she was given Toradol IV. Treatment Plan: Patient will be discussed with the hospitalist for admission and further evaluation. Disposition: Admitted in improved condition. Impression: 1. Cephalgia. 2. Right arm weakness/paresthesias. This note was generated with [employer] dictation software. It may contain incorrect words, spelling, and punctuation that were not noted in review of the chart prior to signing ED Disposition - Plan for ED Patient: Chief Complaint: Neuro S/Sx Referrals: Chris Espinal MD [Primary Care Provider] -
[2017-11-12] MEDS: Ketorolac 30 MG/ML Syringe IV (21:41)
--- NOTE | 2017-11-12 22:30 | PCM.HP.STD ---
Problem List (1) Right sided weakness Status: Acute (2) Upper GI bleed Status: Acute (3) HLD (hyperlipidemia) Status: Chronic (4) Seizure disorder Status: Chronic (5) Type II diabetes mellitus Status: Chronic Qualifiers: Diabetes mellitus complication status: with other specified complication History of Present Illness Date of Admission: 11/12/17 Chief Complaint: Right hand weakness The patient is a 37 year old female w/ h/o seizure admitted for right hand weakness. She developed sudden headache around early evening. Headache was severe. Nothing made it better or worse. It was throbbing and aching. It was later associated with right sided hand weakness. She was unable to move her right arm. She also complained of tingling in the right arm. Nothing makes it better or worse. She went to the ED for further workup. Past Medical History Past Medical History (Chronic Problems): Chronic Problems Seizure disorder (Chronic) Obesity (Chronic) HLD (hyperlipidemia) (Chronic) Type II diabetes mellitus (Chronic) Allergies Sulfa (Sulfonamide Antibiotics) Allergy (Intermediate, Verified 10/24/17 09:42) Hives Iodinated Contrast- Oral and IV Dye Allergy (Mild, Verified 10/24/17 09:42) Rash uncontrollable itching nortriptyline Adverse Reaction (Severe, Verified 10/24/17 09:42) Other lowered blood sugar, caused irregular hear rythym metformin Adverse Reaction (Intermediate, Verified 10/24/17 09:42) Diarrhea morphine Adverse Reaction (Verified 10/24/17 09:42) Itching Home Medications: Ambulatory Orders Medication Instructions Recorded Liraglutide [Victoza 2-Ben] 1.8 mg SQ DAILY 09/20/15 Topiramate [Topamax] 100 mg PO QHS 09/20/15 Topiramate [Topamax] 50 mg PO BREAKFAST 07/02/16 Gabapentin [Neurontin] 300 mg PO TIDCM 05/10/17 Insulin Glargine,Hum.rec.anlog 27 unit SQ QHS 05/10/17 [Lantus] Insulin Lispro [Humalog] 0 unit SQ TID 05/10/17 traMADol [Ultram (G)] 100 mg PO BID 05/10/17 Surgical History: cholecystectomy, - - Embolization of vein in the uterus Psychiatric History: No pertinent psych hx HEALTH AND WELLNESS COORDINATOR History: No pertinent HEALTH AND WELLNESS COORDINATOR history Smoking Status: Current every day smoker - *Family History Maternal History Items: - - Rheumatoid arthritis Paternal History Items: No pertinent history Review of Systems Constitutional: Denies: Chills, Fever, Weight Change HEENT: Denies: Head Aches, Sinus Congestion, Sinus Drainage Cardiovascular: Denies: Chest Pain, Palpitations Respiratory: Denies: Cough, Shortness of breath at rest, Sputum production Gastrointestinal: Denies: Abdominal Pain, Nausea, Vomiting Genitourinary: Denies: Dysuria Musculoskeletal: Denies: Joint Pain, Joint Tenderness Skin: Denies: Rash, Wounds Neurological: Reports: Focal weakness, Headaches, Numbness, Tingling Psychiatric: Denies: Anxiety, Depression, Homicidal Ideations, Suicidal Ideations Hematologic/ Lymphatic: Denies: Easy Bruising, Easy Bleeding VTE Information - Inpt Only VTE Present on Admission: No VTE Mechan Device Prophylaxis: SCD's VTE Pharm Prophylaxis ordered?: Yes - Physical Exam General: Alert, Oriented x3, Cooperative HEENT: Atraumatic, PERRLA, EOMI, Normocephalic Neck: Supple, No JVD, Negative Carotid Bruits Lungs: Clear to auscultation, Normal air movement Cardiovascular: Regular rate, No murmurs Abdomen: Bowel Sounds Present, Soft, Non Tender Extremities: No edema, Capillary Refill Less than 3 Seconds Skin: No rashes, No breakdown Musculoskeletal: No Tenderness to Palpation of Joints or Extremities Neurological: Cranial nerves II-XII grossly intact, - - 1/5 strength on rigth upper extremity. Psych/Mental Status: Normal Affect, Appropriate Vital Signs Temp Pulse Resp BP Pulse Ox 96.6 F L 89 16 135/75 H 94 11/12/17 19:29 11/12/17 21:30 11/12/17 21:30 11/12/17 21:30 11/12/17 21:30 Oxygen Delivery Method Room Air Weight: 94.801 kg Body Mass Index (BMI) 33.7 Finger Stick Blood Glucose 213 Laboratory Tests Past 24 Hrs 11/12/17 11/12/17 11/12/17 20:00 20:00 20:00 WBC 6.9 RBC 5.00 Hgb 13.0 Hct 40.2 MCV 80.4 L MCH 26.0 L MCHC 32.3 RDW 15.8 H RDW Differential 45.9 H Plt Count 257 MPV 10.2 Immature Gran % (Auto) 0.100 Neut % (Auto) 50.2 Lymph % (Auto) 33.7 [place] % (Auto) 8.9 Eos % (Auto) 6.7 H Baso % (Auto) 0.4 Absolute Neuts (auto) 3.5 Absolute Lymphs (auto) 2.32 Total Counted Not Reportable PT 12.9 INR 1.0 APTT 26.2 Sodium 137 Potassium 3.5 Chloride 104 Carbon Dioxide 23.0 Anion Gap 10 BUN 16 Creatinine 1.00 Estim Creat Clear Calc 72.81 Est GFR (MDRD) Af Amer 81 Est GFR (MDRD) Non-Af 67 BUN/Creatinine Ratio 16.0 Glucose 213 H Calcium 8.8 Troponin I < 0.015 Assessment/Plan All Active Problems Upper GI bleed (Acute) Right sided weakness (Acute) 37 year old female w/ h/o seizure admitted for right hand weakness. 1) Right hand weakness: Probably psychosomatic vs hemiplegic migraine. CT brain shows no acute disease. CTA of the head shows normal [place] will no aneurysm or stenosis. CT of the neck is normal. Will get MRI and ECHO. Will start ASA and statin. 2) H/o seizure: Last seizure was 3 years ago. Resume home meds. 3) Headache: Probably migraine. Supportive care.
--- NOTE | 2017-11-12 23:05 | NURSING ---
Called ED manager billing Erica at [phone] and let them know PCU is ready for the patient. ED called back at 2300 and asked if we could take the patient. Informed them PCU was ready.
--- NOTE | 2017-11-12 23:46 | EKG12_ITS ---
Test Reason : CP REPEAT Blood Pressure : / mmHG Vent. Rate : 088 BPM Atrial Rate : 088 BPM P-R Int : 140 ms QRS Dur : 076 ms QT Int : 368 ms P-R-T Axes : 067 026 012 degrees QTc Int : 445 ms Normal sinus rhythm Low voltage QRS Borderline ECG Confirmed by CESAR ELIZONDO, BRET ([id number]), market editor ALEKSANDAR ZAMBRANO ([id number] on 11/18/2017 2:10:58 PM Referred By: SANTOS Confirmed By:BRET GUERRERO MD
[2017-11-13] VITALS (16 sets, daily range): BP systolic 110–130; BP diastolic 60–73; PULSE 79–96; RESP 12–17; TEMP 36.8–37.1; O2SAT 95–98; BMI 33.6; BMI 33.7
[2017-11-13] MEDS: 0.9% Normal Saline 1,000 ML 100 ML IV ×2 (00:30→11:07)
[2017-11-13] MEDS: Atorvastatin Calcium 80 MG Tablet PO (00:30)
[2017-11-13] MEDS: Topiramate 100 MG Tablet PO (00:30)
[2017-11-13 00:31] LABS: Bedside Glucose 376 mg/dL (70-110)
[2017-11-13 00:46] LABS: Thyroid Stim Hormone (TSH) 1.64 uIU/mL (0.358-3.74)
[2017-11-13 07:40] LABS: Bedside Glucose 241 mg/dL (70-110)
--- NOTE | 2017-11-13 07:47 | MRI_ITS ---
STUDY: MRI BRAIN WITHOUT CONTRAST REASON FOR EXAM: Female, 37 years old. Weakness and right arm TECHNIQUE: Standardized multiplanar fat and water weighted pulse sequences were obtained. COMPARISON: None. FINDINGS: No evidence for shift of midline structures, mass effect or compression of ventricles noted. No acute intra or extra-axial hemorrhage. No abnormal intracranial fluid collections identified. 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 The ventricular system appears nondilated. No discrete mass in the posterior fossa. Basal cisterns are patent. Mild mucosal thickening of the ethmoid air cells. IMPRESSION: No evidence for acute or subacute ischemic insult. No evidence for intracranial mass or acute hemorrhage. 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 Electronically Signed: Kaiser Molina, at 12:29 EDT Tel , Service support , MRI/Brain without Contrast
[2017-11-13 08:05] LABS: Amphetamine Urine VISTA NEGATIVE (<1000 ng/mL); Barbiturate Urine VISTA NEGATIVE (< 200 ng/mL); Benzodiazepine Urine VISTA NEGATIVE (< 200 ng/mL); Cocaine Urine VISTA NEGATIVE (< 300 ng/mL); Ecstacy Urine VISTA NEGATIVE (< 500 ng/mL); Methadone Urine VISTA NEGATIVE (< 300 ng/mL); PCP Urine VISTA NEGATIVE (< 25 ng/mL); THC Urine VISTA NEGATIVE (< 50 ng/mL); Vista UDS pH Range 6
[2017-11-13 08:24] LABS: Hematocrit 39.9 % (37-47); Hemoglobin 12.7 g/dl (12.0-15.0); Mean Corp Hgb Conc 31.8 g/gl (32-36); Mean Corpuscular Hgb 25.7 pg (27.0-32.0); Mean Corpuscular Volume 80.8 fL (81-99); Mean Platelet Vol. 10.3 fl (6.2-12.0); Platelet Count 248 K/mm3 (150-450); RBC Distribution Width CV 15.9 % (11.6-14.6); RBC Distribution Width SD 46.1 fl (35.1-43.9); Red Blood Count 4.94 M/mm3 (4.2-5.4); White Blood Count 6.9 K/mm3 (4.4-11.0)
[2017-11-13 08:26] LABS: Scan Indicated on CBC? Y/N NO
[2017-11-13] MEDS: Topiramate 50 MG Tablet PO (08:32)
[2017-11-13] MEDS: Aspirin 81 MG TAB.CHEW PO (08:32)
[2017-11-13] MEDS: Gabapentin 300 MG Capsule PO ×2 (08:32→12:58)
[2017-11-13 08:41] LABS: Anion Gap 9 (5-15); BUN 19 mg/dL (7-18); BUN/Creat Ratio 18.3 RATIO (10-20); Calcium,Total 8.2 mg/dL (8.5-10.1); Chloride 111 mmol/L (98-107); Cholesterol 221 mg/dL (200); Creatinine, Serum 1.04 mg/dL (0.55-1.02); EST Glomerular Filtration Rate 64 mL/min (>60); Est Glom Filt Rate - Afr Amer 77 mL/min (>60); Estimated Creatinine Clearance 70.01 ml/min; Glucose 236 mg/dL (74-106); High Density Lipoprotein 39 mg/dL; Potassium 3.9 mmol/L (3.5-5.1); Sodium Level 139 mmol/L (136-145); Triglycerides 148 mg/dL; Very Low Density Lipoprotein 30 mg/dL (5-40)
--- NOTE | 2017-11-13 09:16 | MRI_ITS ---
STUDY: MRI CERVICAL SPINE WITHOUT CONTRAST REASON FOR EXAM: Female, 37 years old. Neck pain and right arm weakness TECHNIQUE: Standardized fat and water weighted pulse sequences were obtained in the sagittal and axial planes. COMPARISON: None FINDINGS: Straightening of normal cervical lordotic curvature. Craniocervical junction appears unremarkable. No definite evidence of cord edema or myelomalacia. Minimal anterior wedging of the C5 vertebral body seen. Mild disc desiccation. No significant loss of disc height. Mild anterior osteophytic spurring. Level by level segmental analysis: C2-C3 level: Uncovertebral joint and facet joint degenerative changes with broad-based disc osteophyte complex resulting in mild left-sided neural foraminal narrowing without significant central canal stenosis C3-C4 level: Uncovertebral joint and facet joint degenerative changes with broad-based disc osteophyte complex without seen in central canal stenosis or neural foraminal narrowing C4-C5 level: Uncovertebral joint and facet joint degenerative changes with broad-based disc bulge and a small central disc protrusion with mild left-sided neural foraminal narrowing without central canal stenosis. C5-C6 level: Uncovertebral joint and facet joint degenerative changes and broad-based disc bulge without significant central canal stenosis and minimal left-sided neural foraminal narrowing. C6-C7 level: Bilateral facet hypertrophy and broad-based disc bulge and uncovertebral joint degenerative changes with a superimposed small right foraminal level disc protrusion resulting in moderate right-sided neural foraminal narrowing without significant central canal stenosis. There is approximation of the exiting right C7 nerve root. C7-T1 level: Mild facet hypertrophy without seen in central canal stenosis or neural foraminal narrowing. IMPRESSION: Mild cervical spondylotic changes predominating at C6-C7 level. Please see above level by level complete analysis and details. No significant central canal stenosis. At C6-C7 level, bilateral facet hypertrophy and broad-based disc bulge and uncovertebral joint degenerative changes with a superimposed small right foraminal level disc herniation resulting in moderate right-sided neural foraminal narrowing without significant central canal stenosis. There is approximation of the exiting right C7 nerve root. Electronically Signed: Kaiser Molina, at 14:30 EDT Tel , Service support , MRI/Spine Cervical (Routine)
[2017-11-13] MEDS: traMADol 50 MG Tablet 100 MG PO (11:06)
[2017-11-13 12:30] LABS: Bedside Glucose 258 mg/dL (70-110)
--- NOTE | 2017-11-13 13:15 | PCM.DC ---
You will use the following diet at home:: Calorie/Carbohydrate Controlled (specify 1200, 1400, etc) Discharge Activity: Return to Normal Activity Call your doctor if you observe: Numbness or Tingling, Shortness of breath, Dizziness, Fainting spells, Chest pain Allergies/Adverse Reactions: Allergies Sulfa (Sulfonamide Antibiotics) Allergy (Intermediate, Verified 10/24/17 09:42) Hives Iodinated Contrast- Oral and IV Dye Allergy (Mild, Verified 10/24/17 09:42) Rash uncontrollable itching nortriptyline Adverse Reaction (Severe, Verified 10/24/17 09:42) Other lowered blood sugar, caused irregular hear rythym metformin Adverse Reaction (Intermediate, Verified 10/24/17 09:42) Diarrhea morphine Adverse Reaction (Verified 10/24/17 09:42) Itching Medications to take at Discharge Liraglutide [Victoza 2-Ben] 1.8 mg SQ DAILY 09/20/15 Topiramate [Topamax] 100 mg PO QHS 09/20/15 Topiramate [Topamax] 50 mg PO BREAKFAST 07/02/16 Gabapentin [Neurontin] 300 mg PO TIDCM 05/10/17 Insulin Glargine,Hum.rec.anlog [Lantus] 27 unit SQ QHS 05/10/17 Insulin Lispro [Humalog] 0 unit SQ TID 05/10/17 traMADol [Ultram] 100 mg PO BID 05/10/17 Atorvastatin Calcium [Lipitor] 20 mg PO QHS #30 tab 11/13/17 The following prescriptions were given: Atorvastatin Calcium [Lipitor] 20 mg PO QHS #30 tab Primary Care Physician: Chris Espinal MD [Primary Care Provider] - Please follow up with your Primary Care Physician in: 1 Week Test Results: Test results from this visit will be discussed in further detail at your follow-up appointment, if applicable. Please Follow Up With: Dr. Ford - Primary Neurology When: 1-2 Weeks Proposed Discharge Date: 11/13/17
--- NOTE | 2017-11-13 13:32 | DCINST_ITS ---
You will use the following diet at home:: Calorie/Carbohydrate Controlled ( specify 1200, 1400, etc) Discharge Activity: Return to Normal Activity Call your doctor if you observe: Numbness or Tingling, Shortness of breath, Dizziness, Fainting spells, Chest pain Allergies/Adverse Reactions: Allergies Sulfa (Sulfonamide Antibiotics) Allergy (Intermediate, Verified 10/24/17 09:42) Hives Iodinated Contrast- Oral and IV Dye Allergy (Mild, Verified 10/24/17 09:42) Rash uncontrollable itching nortriptyline Adverse Reaction (Severe, Verified 10/24/17 09:42) Other lowered blood sugar, caused irregular hear rythym metformin Adverse Reaction (Intermediate, Verified 10/24/17 09:42) Diarrhea morphine Adverse Reaction (Verified 10/24/17 09:42) Itching Medications to take at Discharge Liraglutide [Victoza 2-Ben] 1.8 mg SQ DAILY 09/20/15 Topiramate [Topamax] 100 mg PO QHS 09/20/15 Topiramate [Topamax] 50 mg PO BREAKFAST 07/02/16 Gabapentin [Neurontin] 300 mg PO TIDCM 05/10/17 Insulin Glargine,Hum.rec.anlog [Lantus] 27 unit SQ QHS 05/10/17 Insulin Lispro [Humalog] 0 unit SQ TID 05/10/17 traMADol [Ultram] 100 mg PO BID 05/10/17 Atorvastatin Calcium [Lipitor] 20 mg PO QHS #30 tab 11/13/17 The following prescriptions were given: Atorvastatin Calcium [Lipitor] 20 mg PO QHS #30 tab Primary Care Physician: Chris Espinal MD [Primary Care Provider] - Please follow up with your Primary Care Physician in: 1 Week Test Results: Test results from this visit will be discussed in further detail at your follow- up appointment, if applicable. Please Follow Up With: Dr. Ford - Primary Neurology When: 1-2 Weeks Proposed Discharge Date: 11/13/17
--- NOTE | 2017-11-13 14:40 | PCM.DC.SUM ---
<Keara Barton - Last Filed: 11/13/17 15:12> Discharge Date and Diagnosis Date of Admission: 11/12/17 Date of Discharge: 11/13/17 - Primary Discharge Diagnosis 1. Right upper extremity weakness-CVA ruled out. Etiology unclear. 2. Acute on chronic migraine 3. 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 Electronically Signed: Guillermo Echevarria MD at 21:21 EDT , Service support , Neck CTA 11/12/17 19:53 IMPRESSION: CTA of the neck vessels is normal for age. Electronically Signed: Guillermo Echevarria MD at 21:23 EDT , Service support , Brain MRI 11/13/17 07:47 FINDINGS: No evidence for shift of midline structures, mass effect or compression of ventricles noted. No acute intra or extra-axial hemorrhage. No abnormal intracranial fluid collections identified. 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 The ventricular system appears nondilated. No discrete mass in the posterior fossa. Basal cisterns are patent. Mild mucosal thickening of the ethmoid air cells. IMPRESSION: No evidence for acute or subacute ischemic insult. No evidence for intracranial mass or acute hemorrhage. 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 Cervical Spine MRI 11/13/17 09:16 FINDINGS: Straightening of normal cervical lordotic curvature. Craniocervical junction appears unremarkable. No definite evidence of cord edema or myelomalacia. Minimal anterior wedging of the C5 vertebral body seen. Mild disc desiccation. No significant loss of disc height. Mild anterior osteophytic spurring. Level by level segmental analysis: C2-C3 level: Uncovertebral joint and facet joint degenerative changes with broad-based disc osteophyte complex resulting in mild left-sided neural foraminal narrowing without significant central canal stenosis C3-C4 level: Uncovertebral joint and facet joint degenerative changes with broad-based disc osteophyte complex without seen in central canal stenosis or neural foraminal narrowing C4-C5 level: Uncovertebral joint and facet joint degenerative changes with broad-based disc bulge and a small central disc protrusion with mild left-sided neural foraminal narrowing without central canal stenosis. C5-C6 level: Uncovertebral joint and facet joint degenerative changes and broad-based disc bulge without significant central canal stenosis and minimal left-sided neural foraminal narrowing. C6-C7 level: Bilateral facet hypertrophy and broad-based disc bulge and uncovertebral joint degenerative changes with a superimposed small right foraminal level disc protrusion resulting in moderate right-sided neural foraminal narrowing without significant central canal stenosis. There is approximation of the exiting right C7 nerve root. C7-T1 level: Mild facet hypertrophy without seen in central canal stenosis or neural foraminal narrowing. IMPRESSION: Mild cervical spondylotic changes predominating at C6-C7 level. Please see above level by level complete analysis and details. No significant central canal stenosis. At C6-C7 level, bilateral facet hypertrophy and broad-based disc bulge and uncovertebral joint degenerative changes with a superimposed small right foraminal level disc herniation resulting in moderate right-sided neural foraminal narrowing without significant central canal stenosis. There is approximation of the exiting right C7 nerve root. Operations: None Procedures: None Summary of Care Provided: The patient is a 37 year old F admitted 11/12/2017 due to right hand weakness. She has a past medical history of seizure disorder, obesity, hyperlipidemia, type 2 diabetes mellitus, history of migraines, history of AVM in the brain, gastroparesis. Acute CVA ruled out. Etiology unclear. Patient has had previous admission with similar presenting symptoms. MRI of brain without evidence of acute or subacute ischemic infarct. No evidence of mass or hemorrhage. MRI of cervical spine showed mild cervical spondylotic changes predominating at C6-C7 level. C6-C7 bilateral facet hypertrophy and broad-based disc bulge and uncovertebral joint degenerative changes with a superimposed small right foraminal level disc herniation resulting in moderate right-sided neural foraminal narrowing without significant central canal stenosis. There is approximation of the exiting right C7 nerve root. Patient's symptoms have improved. She was noted to have migraine during admission with history of chronic migraines on Topamax therapy. Lipid panel elevated. Patient was started on atorvastatin 20 mg nightly. Recommend further follow-up with primary care physician. During previous admission in 2014 with similar symptoms of right-sided weakness, it was felt that patient had a conversion reaction at that time. Unclear of current etiology. 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 Patient denies recent seizure activity. Other chronic medical conditions as noted above are stable at this time. Patient is stable for discharge home. She follows with neurologist at [facility], Dr. Ford. Recommend follow-up with primary care physician in 1 week and primary neurologist in 1-2 weeks. General: Alert, Oriented x3, Cooperative HEENT: Atraumatic, PERRLA, EOMI, Normocephalic Neck: Supple, No JVD, Negative Carotid Bruits Lungs: Clear to auscultation, Normal air movement Cardiovascular: Regular rate, No murmurs Abdomen: Bowel Sounds Present, Soft, Non Tender Extremities: No edema, Capillary Refill Less than 3 Seconds Skin: No rashes, No breakdown Musculoskeletal: No Tenderness to Palpation of Joints or Extremities Neurological: Cranial nerves II-XII grossly intact, 3/5 strength RUE Psych/Mental Status: Normal Affect, Appropriate Patient seen exam prior to discharge. Physical assessment as noted above. Patient is stable for discharge home with the follow-up recommendations as noted above. This patient was seen by BENNIE Aguilar under the supervision of Dr. Ma. Discharge Diet: Low fat/ Low Cholesterol, Carb Control Diet Discharge Activity: Return to Normal Activity Call your doctor if you observe: Numbness or Tingling, Shortness of breath, Dizziness, Fainting spells, Chest pain Home Medications: Medications to take at Discharge Liraglutide [Victoza 2-Ben] 1.8 mg SQ DAILY 09/20/15 Topiramate [Topamax] 100 mg PO QHS 09/20/15 Topiramate [Topamax] 50 mg PO BREAKFAST 07/02/16 Gabapentin [Neurontin] 300 mg PO TIDCM 05/10/17 Insulin Glargine,Hum.rec.anlog [Lantus] 27 unit SQ QHS 05/10/17 Insulin Lispro [Humalog] 0 unit SQ TID 05/10/17 traMADol [Ultram] 100 mg PO BID 05/10/17 Atorvastatin Calcium [Lipitor] 20 mg PO QHS #30 tab 11/13/17 Following Prescrptions Were Given to Patient: Atorvastatin Calcium [Lipitor] 20 mg PO QHS #30 tab Primary Care Physician: Chris Espinal MD [Primary Care Provider] - Please follow up with your Primary Care Physician in: 1 Week Please Follow Up With: Dr. Ford - Primary Neurology When: 1-2 Weeks Disposition: Home Minutes spent on discharge:: 35 Patient Condition:: Stable Medical Necessity - Tobacco Use Smoking Status: Current every day smoker Tobacco Use: Vapor Meaningful Use Info Meaningful Use Diagnoses (Choose all that apply): None applicable <Diallo Ma - Last Filed: 11/13/17 17:42> Discharge Date and Diagnosis - Secondary Discharge Diagnosis Chronic Problems Seizure disorder (Chronic) Obesity (Chronic) HLD (hyperlipidemia) (Chronic) Type II diabetes mellitus (Chronic) Hospital Course and Treatment Imaging Results: 11/13/17 09:16 MRI Cervical [Spine Cervical (Routine)] [MRI] Urgent Summary of Care Provided: The patient is a 37 year old F was admitted with right hand weakness acute CVA was ruled out with imaging studies. Patient subsequently underwent MRI of the cervical spine which demonstrated Mild cervical spondylotic changes predominating at C6-C7 level. Follow-up appointment was set up with neurology for the patient Patient was seen and examined on the day of discharge. Her admitting diagnostic workup history and physical as well as management orders reviewed. Patient was also seen in conjunction with Keara GONZALEZ and I did review her documentation as above and do concur Code Visit OBSV E&M: 09545 Observation care discharge
--- NOTE | 2017-11-13 14:56 | DS.PCM_ITS ---
<Keara Barton - Last Filed: 11/13/17 15:12> Discharge Date and Diagnosis Date of Admission: 11/12/17 Date of Discharge: 11/13/17 - Primary Discharge Diagnosis 1. Right upper extremity weakness-CVA ruled out. Etiology unclear. 2. Acute on chronic migraine 3. 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 Electronically Signed: Guilelrmo Echevarria MD at 21:21 EDT , Service support , Neck CTA 11/12/17 19:53 IMPRESSION: CTA of the neck vessels is normal for age. Electronically Signed: Guillermo Echevarria MD at 21:23 EDT , Service support , Brain MRI 11/13/17 07:47 FINDINGS: No evidence for shift of midline structures, mass effect or compression of ventricles noted. No acute intra or extra-axial hemorrhage. No abnormal intracranial fluid collections identified. 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 The ventricular system appears nondilated. No discrete mass in the posterior fossa. Basal cisterns are patent. Mild mucosal thickening of the ethmoid air cells. IMPRESSION: No evidence for acute or subacute ischemic insult. No evidence for intracranial mass or acute hemorrhage. 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 Cervical Spine MRI 11/13/17 09:16 FINDINGS: Straightening of normal cervical lordotic curvature. Craniocervical junction appears unremarkable. No definite evidence of cord edema or myelomalacia. Minimal anterior wedging of the C5 vertebral body seen. Mild disc desiccation. No significant loss of disc height. Mild anterior osteophytic spurring. Level by level segmental analysis: C2-C3 level: Uncovertebral joint and facet joint degenerative changes with broad-based disc osteophyte complex resulting in mild left-sided neural foraminal narrowing without significant central canal stenosis C3-C4 level: Uncovertebral joint and facet joint degenerative changes with broad-based disc osteophyte complex without seen in central canal stenosis or neural foraminal narrowing C4-C5 level: Uncovertebral joint and facet joint degenerative changes with broad-based disc bulge and a small central disc protrusion with mild left-sided neural foraminal narrowing without central canal stenosis. C5-C6 level: Uncovertebral joint and facet joint degenerative changes and broad-based disc bulge without significant central canal stenosis and minimal left-sided neural foraminal narrowing. C6-C7 level: Bilateral facet hypertrophy and broad-based disc bulge and uncovertebral joint degenerative changes with a superimposed small right foraminal level disc protrusion resulting in moderate right-sided neural foraminal narrowing without significant central canal stenosis. There is approximation of the exiting right C7 nerve root. C7-T1 level: Mild facet hypertrophy without seen in central canal stenosis or neural foraminal narrowing. IMPRESSION: Mild cervical spondylotic changes predominating at C6-C7 level. Please see above level by level complete analysis and details. No significant central canal stenosis. At C6-C7 level, bilateral facet hypertrophy and broad-based disc bulge and uncovertebral joint degenerative changes with a superimposed small right foraminal level disc herniation resulting in moderate right-sided neural foraminal narrowing without significant central canal stenosis. There is approximation of the exiting right C7 nerve root. Operations: None Procedures: None Summary of Care Provided: The patient is a 37 year old F admitted 11/12/2017 due to right hand weakness. She has a past medical history of seizure disorder, obesity, hyperlipidemia, type 2 diabetes mellitus, history of migraines, history of AVM in the brain, gastroparesis. Acute CVA ruled out. Etiology unclear. Patient has had previous admission with similar presenting symptoms. MRI of brain without evidence of acute or subacute ischemic infarct. No evidence of mass or hemorrhage. MRI of cervical spine showed mild cervical spondylotic changes predominating at C6-C7 level. C6-C7 bilateral facet hypertrophy and broad- based disc bulge and uncovertebral joint degenerative changes with a superimposed small right foraminal level disc herniation resulting in moderate right-sided neural foraminal narrowing without significant central canal stenosis. There is approximation of the exiting right C7 nerve root. Patient' s symptoms have improved. She was noted to have migraine during admission with history of chronic migraines on Topamax therapy. Lipid panel elevated. Patient was started on atorvastatin 20 mg nightly. Recommend further follow-up with primary care physician. During previous admission in 2014 with similar symptoms of right-sided weakness, it was felt that patient had a conversion reaction at that time. Unclear of current etiology. 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 Patient denies recent seizure activity. Other chronic medical conditions as noted above are stable at this time. Patient is stable for discharge home. She follows with neurologist at [facility], Dr. Ford. Recommend follow-up with primary care physician in 1 week and primary neurologist in 1-2 weeks. General: Alert, Oriented x3, Cooperative HEENT: Atraumatic, PERRLA, EOMI, Normocephalic Neck: Supple, No JVD, Negative Carotid Bruits Lungs: Clear to auscultation, Normal air movement Cardiovascular: Regular rate, No murmurs Abdomen: Bowel Sounds Present, Soft, Non Tender Extremities: No edema, Capillary Refill Less than 3 Seconds Skin: No rashes, No breakdown Musculoskeletal: No Tenderness to Palpation of Joints or Extremities Neurological: Cranial nerves II-XII grossly intact, 3/5 strength RUE Psych/Mental Status: Normal Affect, Appropriate Patient seen exam prior to discharge. Physical assessment as noted above. Patient is stable for discharge home with the follow-up recommendations as noted above. This patient was seen by BENNIE Aguilar under the supervision of Dr. Ma. Discharge Diet: Low fat/ Low Cholesterol, Carb Control Diet Discharge Activity: Return to Normal Activity Call your doctor if you observe: Numbness or Tingling, Shortness of breath, Dizziness, Fainting spells, Chest pain Home Medications: Medications to take at Discharge Liraglutide [Victoza 2-Ben] 1.8 mg SQ DAILY 09/20/15 Topiramate [Topamax] 100 mg PO QHS 09/20/15 Topiramate [Topamax] 50 mg PO BREAKFAST 07/02/16 Gabapentin [Neurontin] 300 mg PO TIDCM 05/10/17 Insulin Glargine,Hum.rec.anlog [Lantus] 27 unit SQ QHS 05/10/17 Insulin Lispro [Humalog] 0 unit SQ TID 05/10/17 traMADol [Ultram] 100 mg PO BID 05/10/17 Atorvastatin Calcium [Lipitor] 20 mg PO QHS #30 tab 11/13/17 Following Prescrptions Were Given to Patient: Atorvastatin Calcium [Lipitor] 20 mg PO QHS #30 tab Primary Care Physician: Chris Espinal MD [Primary Care Provider] - Please follow up with your Primary Care Physician in: 1 Week Please Follow Up With: Dr. Ford - Primary Neurology When: 1-2 Weeks Disposition: Home Minutes spent on discharge:: 35 Patient Condition:: Stable Medical Necessity - Tobacco Use Smoking Status: Current every day smoker Tobacco Use: Vapor Meaningful Use Info Meaningful Use Diagnoses (Choose all that apply): None applicable <Diallo Ma - Last Filed: 11/13/17 17:42> Discharge Date and Diagnosis - Secondary Discharge Diagnosis Chronic Problems Seizure disorder (Chronic) Obesity (Chronic) HLD (hyperlipidemia) (Chronic) Type II diabetes mellitus (Chronic) Hospital Course and Treatment Imaging Results: 11/13/17 09:16 MRI Cervical [Spine Cervical (Routine)] [MRI] Urgent Summary of Care Provided: The patient is a 37 year old F was admitted with right hand weakness acute CVA was ruled out with imaging studies. Patient subsequently underwent MRI of the cervical spine which demonstrated Mild cervical spondylotic changes predominating at C6-C7 level. Follow-up appointment was set up with neurology for the patient Patient was seen and examined on the day of discharge. Her admitting diagnostic workup history and physical as well as management orders reviewed. Patient was also seen in conjunction with Keara GONZALEZ and I did review her documentation as above and do concur Code Visit OBSV E&M: [id number] Observation care discharge
[2017-11-13] MEDS: Acetaminophen 325 MG Tablet 650 MG PO (15:11)
--- NOTE | 2017-11-13 23:46 | EKG12_ITS ---
Test Reason : AM EKG Blood Pressure : / mmHG Vent. Rate : 084 BPM Atrial Rate : 084 BPM P-R Int : 140 ms QRS Dur : 080 ms QT Int : 380 ms P-R-T Axes : 073 032 023 degrees QTc Int : 449 ms Normal sinus rhythm Low voltage QRS (LIMB LEADS) Confirmed by CESAR ELIZONDO, BRET ([id number]), content editor ALEKSANDAR ZAMBRANO ([id number] on 11/18/2017 2:10:27 PM Referred By: SANTOS Confirmed By:BRET GUERRERO MD
== END 2017-11-13 13:36 | disposition home or self-care (01) ==
LOC: ED 20:28 → PCU 22:54
PROVIDERS: Admitting Provider Internal Medicine; Emergency Provider Emergency Medicine; Family Provider Family Medicine; PCP Family Medicine; Visit Provider Internal Medicine
DX: R53.1 Weakness (principal); E78.5 Hyperlipidemia, unspecified; G43.909 Migraine, unspecified, not intractable, without status migrainosus; Z79.899 Other long term (current) drug therapy; Z79.4 Long term (current) use of insulin; E66.9 Obesity, unspecified; Z68.33 Body mass index [BMI] 33.0-33.9, adult; Z71.3 Dietary counseling and surveillance; E11.9 Type 2 diabetes mellitus without complications; G40.909 Epilepsy, unspecified, not intractable, without status epilepticus; Q28.2 Arteriovenous malformation of cerebral vessels; F17.290 Nicotine dependence, other tobacco product, uncomplicated; R94.31 Abnormal electrocardiogram [ECG] [EKG]; M54.2 Cervicalgia; R29.703 NIHSS score 3
CPT/HCPCS: 36415; 70496; 70498; 70551; 72141; 80048; 80061; 80307; 82962; 84443; 84484; 85025; 85027; 85610; 85730; 92523; 93005; 96361; 96374; 96375; 97162; 97166; 99218; 99284; 99406; J7030; Q9967; G0378

== ENCOUNTER 2017-12-08 09:05 | Emergency (ER) | payer MEDICARE, SELFPAY ==
[2017-12-08 09:07] VITALS: BP 110/76; PULSE 82; RESP 16; TEMP 36.4; O2SAT 93; BMI 36.2
--- NOTE | 2017-12-08 09:34 | ED.VISSUMM ---
- ER Visit Summary Date of Service: 12/08/17 Chief Complaint: Right arm paresthesias. History of Present Illness: The patient is a 37 F who presents with right arm weakness and a pins and needles sensation in her right arm. This began about 1 hour ago. She had a recent hospitalization for similar symptoms. She underwent a stroke workup and also had an MRI of the C-spine. Stroke was ruled out. Patient did have small right foraminal level disc herniation resulting in moderate right-sided neural foraminal narrowing at C6/C7. Patient is otherwise without complaint. No fever chest pain shortness of breath nausea vomiting headache. Physical Examination: Afebrile vitals are stable Moist mucous membranes Patient does have some mild cervical tenderness Heart regular rate and rhythm Lungs clear Patient is alert oriented with normal strength. 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 Objectively she has normal strength. She has known foraminal narrowing on the right which is consistent with her symptoms. We will trial a course of prednisone. She will follow-up with her primary care physician. She was advised that if symptoms continue she may consider asking her primary care physician about a spinal surgeon referral. Patient discharged home in good condition. Treatment Plan: [] Disposition: Discharge Impression: Cervical radiculopathy This note was generated with [employer] dictation software. It may contain incorrect words, spelling, and punctuation that were not noted in review of the chart prior to signing ED Disposition - Plan for ED Patient: Chief Complaint: Other, Pain/Inj Referrals: Chris Espinal MD [Primary Care Provider] -
--- NOTE | 2017-12-08 09:38 | ED.DEP ---
ED Disposition - Plan for ED Patient: Chief Complaint: Other, Pain/Inj Instructions: ED Cervical Radiculopathy Prescriptions: Prednisone [Deltasone] 60 mg PO DAILY #15 tab Referrals: Chris Espinal MD [Primary Care Provider] -
[2017-12-08 09:59] VITALS: BP 118/69; PULSE 54; RESP 17; O2SAT 98
== END 2017-12-08 10:01 | disposition home or self-care (01) ==
LOC: ED 09:39
PROVIDERS: Emergency Provider Emergency Medicine; Family Provider Family Medicine; PCP Family Medicine
DX: M54.12 Radiculopathy, cervical region (principal); I10 Essential (primary) hypertension; E78.00 Pure hypercholesterolemia, unspecified
CPT/HCPCS: 99282

== ENCOUNTER 2017-12-19 18:24 | Emergency (ER) | payer MEDICARE, SELFPAY ==
[2017-12-19 18:24] VITALS: BP 144/83; PULSE 94; RESP 20; TEMP 36.5; O2SAT 98; BMI 34.7
--- NOTE | 2017-12-19 18:53 | ED.VISSUMM ---
- ER Visit Summary Date of Service: 12/19/17 Chief Complaint: Abdominal pain History of Present Illness: The patient is a 37 F who underwent liver biopsy 3 days ago presents with abdominal pain for the past few hours. No fever or chills. No back pain or flank pain. The pain is in the right upper quadrant around her biopsy site. It is an ache and moderate. No nausea or vomiting. Physical Examination: She does appear in some distress Moist mucous membranes, no obvious facial deformity No C-spine tenderness supple neck. Regular rate and rhythm without any obvious murmurs Clear lungs bilaterally speaking in full sentences without any obvious respiratory distress Abdomen soft with some right upper quadrant tenderness. No guarding or rebound. The biopsy site is clean dry and intact. No erythema or calor. Moves all extremities without any difficulty or pain. Skin does not show any obvious rashes or lesions, no trauma. Alert oriented ?3 with no gross focal deficit Emergency Department Course and Treatment: Patient has a negative CT, normal white count and normal workup. She is treated with analgesia she improved she will be discharged to follow-up at [facility]. Disposition: Discharge stable condition Impression: Abdominal pain This note was generated with [employer] dictation software. It may contain incorrect words, spelling, and punctuation that were not noted in review of the chart prior to signing ED Disposition - Plan for ED Patient: Disposition: Home or Assisted Living Chief Complaint: Abd Pain Instructions: ED Abdominal Pain Unkn Cause Referrals: Chris Espinal MD [Primary Care Provider] - 3-5 Days
--- NOTE | 2017-12-19 18:58 | ED.DCSUM_ITS ---
- ER Visit Summary Date of Service: 12/19/17 Chief Complaint: Abdominal pain History of Present Illness: The patient is a 37 F who underwent liver biopsy 3 days ago presents with abdominal pain for the past few hours. No fever or chills. No back pain or flank pain. The pain is in the right upper quadrant around her biopsy site. It is an ache and moderate. No nausea or vomiting. Physical Examination: She does appear in some distress Moist mucous membranes, no obvious facial deformity No C-spine tenderness supple neck. Regular rate and rhythm without any obvious murmurs Clear lungs bilaterally speaking in full sentences without any obvious respiratory distress Abdomen soft with some right upper quadrant tenderness. No guarding or rebound. The biopsy site is clean dry and intact. No erythema or calor. Moves all extremities without any difficulty or pain. Skin does not show any obvious rashes or lesions, no trauma. Alert oriented ?3 with no gross focal deficit Emergency Department Course and Treatment: Patient has a negative CT, normal white count and normal workup. She is treated with analgesia she improved she will be discharged to follow-up at [facility]. Disposition: Discharge stable condition Impression: Abdominal pain This note was generated with [employer] dictation software. It may contain incorrect words, spelling, and punctuation that were not noted in review of the chart prior to signing ED Disposition - Plan for ED Patient: Disposition: Home or Assisted Living Chief Complaint: Abd Pain Instructions: ED Abdominal Pain Unkn Cause Referrals: Chris Espinal MD [Primary Care Provider] - 3-5 Days
[2017-12-19] MEDS: HYDROmorphone 1 MG/ML Syringe IV (19:07)
[2017-12-19] MEDS: Ondansetron 4 MG/2 ML Vial IV (19:07)
[2017-12-19 19:11] LABS: Absolute Lymphocyte Count 2.35 X10^3/ul (0.83-4.51); Absolute Neutrophil Count 2.8 X10^3/uL (2.0-7.7); Basophil# 0.04 X10^3/uL; Basophil% 0.6 % (0-1); Eosinophil# 0.58 X10^3/uL; Eosinophils% 9.3 % (0-5); Hemoglobin 12.2 g/dl (12.0-15.0); Lymphocyte # 2.35 X10^3/ul (4.0); Lymphocyte % 37.7 % (19-41); Mean Corpuscular Hgb 26.9 pg (27.0-32.0); Mean Corpuscular Volume 81.5 fL (81-99); Mean Platelet Vol. 10.3 fl (6.2-12.0); Monocyte# 0.42 X10^3/uL; Monocyte% 6.7 % (0-10); Neutrophil # 2.83 X10^3/uL (2.7-7.7); Neutrophil % 45.4 % (47-70); Platelet Count 208 K/mm3 (150-450); RBC Distribution Width CV 15.2 % (11.6-14.6); RBC Distribution Width SD 44.8 fl (35.1-43.9); Red Blood Count 4.54 M/mm3 (4.2-5.4); White Blood Count 6.2 K/mm3 (4.4-11.0)
[2017-12-19 19:13] LABS: POSITIVE COUNT NO; POSITIVE DIFFERENTIAL NO; POSITIVE MORPHOLOGY NO
[2017-12-19 19:26] LABS: ALB/GLOB Ratio 0.9 RATIO (0.9-2.4); AST(SGOT) 19 U/L (15-37); Alanine Aminotransfer ALT/SGPT 34 U/L (13-56); Albumin, Serum 3.4 g/dL (3.2-5.0); Alkaline Phosphatase 93 U/L (45-117); Anion Gap 9 (5-15); BUN 8 mg/dL (7-18); BUN/Creat Ratio 7.8 RATIO (10-20); Calcium,Total 8.2 mg/dL (8.5-10.1); Chloride 104 mmol/L (98-107); Creatinine, Serum 1.03 mg/dL (0.55-1.02); EST Glomerular Filtration Rate 64 mL/min (>60); Est Glom Filt Rate - Afr Amer 78 mL/min (>60); Estimated Creatinine Clearance 70.69 ml/min; Globulin 3.7 g/dL (2.2-4.2); Glucose 292 mg/dL (74-106); Potassium 3.3 mmol/L (3.5-5.1); Protein, Total 7.1 g/dL (6.4-8.2); Sodium Level 137 mmol/L (136-145)
[2017-12-19 19:51] VITALS: BP 116/76; PULSE 72; RESP 15; O2SAT 97
[2017-12-19 20:39] VITALS: BP 108/75; PULSE 74; RESP 15; O2SAT 98
== END 2017-12-19 20:41 | disposition home or self-care (01) ==
LOC: ED 18:53
PROVIDERS: Emergency Provider Emergency Medicine; Family Provider Family Medicine; PCP Family Medicine
DX: R10.9 Unspecified abdominal pain (principal); R11.0 Nausea; E11.9 Type 2 diabetes mellitus without complications
CPT/HCPCS: 74176; 80053; 85025; 99283; A4216; J2405

== ENCOUNTER 2018-02-08 09:37 | Inpatient (IN) | payer MEDICARE, SELFPAY ==
[2018-02-08] VITALS (11 sets, daily range): BP systolic 117–128; BP diastolic 75–91; PULSE 70–90; RESP 12–18; TEMP 36.4–36.8; O2SAT 93–98; BMI 32.3; BMI 33.6; BMI 33.7
--- NOTE | 2018-02-08 09:43 | EKG12_ITS ---
Test Reason : NEURO Blood Pressure : / mmHG Vent. Rate : 077 BPM Atrial Rate : 077 BPM P-R Int : 134 ms QRS Dur : 078 ms QT Int : 394 ms P-R-T Axes : 038 028 029 degrees QTc Int : 445 ms Normal sinus rhythm Normal ECG Confirmed by ANIKA ELIZONDO, STACI ([id number]), international editorial producer ALEKSANDAR ZAMBRANO ([id number]) on 02/14/2018 3:28:24 PM Referred By: Teresita Cintron Confirmed By:STACI DONALDSON MD
--- NOTE | 2018-02-08 09:43 | CT_ITS ---
STUDY: CT BRAIN WITHOUT CONTRAST REASON FOR EXAM: Female, 37 years old. Headaches. Right-sided weakness. History of AV malformation and epilepsy. RADIATION DOSAGE (If Supplied By Facility): CTDIvol = ( 44.99 ) mGy, DLP = ( 745.49 ) mGycm TECHNIQUE: Transaxial CT imaging of the brain was performed without administration of intravenous contrast material. Individualized dose optimization techniques were used for this CT. COMPARISON: Comparison is made with prior study dated March 18, 2015. FINDINGS: Normal soft tissue structures. Normal calvarium. Normal size ventricles and extra-axial spaces for the patient's age. Normal white matter tracts of the cerebral hemispheres. 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 Normal basal ganglia and thalami. Normal brainstem. Normal cerebellum. There is no intracranial hemorrhage. There are no findings of an acute ischemic infarction. Normal visualized paranasal sinuses. CT/Brain/Head without Contrast IMPRESSION: Stable agenesis of the corpus callosum. No acute abnormality is seen. N.B. : The above information has been verbally conveyed by Venancio Peter MD to Oscar Magaña on 02/08/2018 10:09:48 (ET). Electronically Signed: Venancio Peter MD at 10:09 EDT Tel [phone], Service support ,
--- NOTE | 2018-02-08 09:43 | RAD_ITS ---
STUDY: X-RAY CHEST REASON FOR EXAM: Female, 37 years old. Short of breath. TECHNIQUE: Single AP portable view of the chest. COMPARISON: 09/07/2017. FINDINGS: The lungs are clear and expanded. There is no demonstrated pleural abnormality. Normal size heart. Normal mediastinum and jose daniel. Normal visualized pulmonary arteries. Normal visualized aortic arch and descending thoracic aorta. Normal visualized thoracic spine. Normal visualized ribs, clavicles, and shoulders. There is no demonstrated abnormality of the visualized soft tissue structures of the upper abdomen. RAD/Chest 1 View IMPRESSION: Normal x-ray examination of the chest. Electronically Signed: Guillermo Echevarria MD at 12:10 EDT , Service support ,
[2018-02-08 09:50] LABS: Bedside Glucose 209 mg/dL (70-110)
--- NOTE | 2018-02-08 10:00 | MRI_ITS ---
STUDY: MRI BRAIN WITHOUT CONTRAST REASON FOR EXAM: Female, 37 years old. stroke, difficulty swallowing , rt sided weakness, hx av malformation, epilepsy, prior cva. TECHNIQUE: Standardized multiplanar fat and water weighted pulse sequences were obtained. COMPARISON: November 13, 2017 FINDINGS: There is absence of the corpus callosum posterior body and splenium with parallel configuration of the lateral ventricles. Normal size of the ventricles and extra-axial spaces for the patient's age. Normal white matter tracts of the supratentorial brain. Normal bilateral basal ganglia. Normal thalami. There is no extra-axial fluid accumulation. Normal flow voids within the major intracranial circulation suggesting patency by spin echo criteria. Normal sella turcica, pituitary gland, infundibular stalk, optic chiasm and hypothalamus. Normal tectal plate and pineal gland. Normal midbrain, nav and medulla. Normal cerebellum. Normal basal cisterns. Normal bilateral temporal bones. Normal bilateral internal auditory canals. No demonstrated orbital abnormality, within the constraints of a routine brain study. Normal visualized paranasal sinuses. Normal calvarium and skull base. Normal visualized soft tissue structures. Normal visualized upper cervical spine. MRI/Brain without Contrast IMPRESSION: Dysgenesis of the corpus callosum. No acute intracranial abnormality. Electronically Signed: Giselle Jaramillo MD at 11:32 EDT Tel , Service support ,
[2018-02-08 10:03] LABS: Absolute Lymphocyte Count 2.53 X10^3/ul (0.83-4.51); Absolute Neutrophil Count 4.8 X10^3/uL (2.0-7.7); Basophil% 0.7 % (0-1); Eosinophils% 8.6 % (0-5); Hematocrit 43.4 % (37-47); Hemoglobin 14.6 g/dl (12.0-15.0); Lymphocyte # 2.53 X10^3/ul (4.0); Lymphocyte % 29.5 % (19-41); Mean Corp Hgb Conc 33.6 g/gl (32-36); Mean Corpuscular Hgb 26.9 pg (27.0-32.0); Mean Corpuscular Volume 79.9 fL (81-99); Mean Platelet Vol. 10.3 fl (6.2-12.0); Monocyte# 0.39 X10^3/uL; Monocyte% 4.5 % (0-10); Neutrophil # 4.84 X10^3/uL (2.7-7.7); Neutrophil % 56.5 % (47-70); Platelet Count 292 K/mm3 (150-450); RBC Distribution Width CV 14.5 % (11.6-14.6); RBC Distribution Width SD 41.4 fl (35.1-43.9); Red Blood Count 5.43 M/mm3 (4.2-5.4); White Blood Count 8.6 K/mm3 (4.4-11.0)
[2018-02-08 10:04] LABS: Basophil# 0.06 X10^3/uL; Eosinophil# 0.74 X10^3/uL
[2018-02-08 10:08] LABS: POSITIVE COUNT NO; POSITIVE DIFFERENTIAL NO; POSITIVE MORPHOLOGY NO
[2018-02-08 10:11] LABS: Partial Thromboplast Time 24.4 Seconds (24.1-36.2)
[2018-02-08 10:15] LABS: Anion Gap 10 (5-15); BUN 15 mg/dL (7-18); BUN/Creat Ratio 15.5 RATIO (10-20); Calcium,Total 8.7 mg/dL (8.5-10.1); Chloride 103 mmol/L (98-107); Creatinine, Serum 0.97 mg/dL (0.55-1.02); EST Glomerular Filtration Rate 69 mL/min (>60); Est Glom Filt Rate - Afr Amer 84 mL/min (>60); Estimated Creatinine Clearance 75.06 ml/min; Glucose 209 mg/dL (74-106); Potassium 3.7 mmol/L (3.5-5.1); Sodium Level 137 mmol/L (136-145)
--- NOTE | 2018-02-08 10:58 | CON.PCM_ITS ---
Reason for Consult Date of Consultation: 02/08/18 Reason for Consultation: stroke team History of Present Illness: The patient is a 37 year old right-handed white female with a history of seizure disorder treated by Dr. 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 The symptoms were noted by the patient to begin at 9 AM while she was getting ready for work. She denies any triggers, changes in her medications or new anxiety or stress. She says the symptoms are not like any of her seizures in the past. She did have a similar spell approximately 2 months ago which she says was less severe and only involved her right arm. The symptoms went away and her stroke workup was negative including MRI. This morning she noted headache as well as severe weakness of her right arm and right leg. I met the patient in the emergency room, and accompanied her to CAT scan where I reviewed the CAT scan which was without dye and was unremarkable. The patient stated that she had a CT dye allergy so she was taken directly to MRI. I accompanied the patient to MRI, and reviewed the MRI can currently with its performance. The MRI did not show any acute changes and was normal with the exception of partial agenesis of her corpus callosum. The patient was not felt to be a candidate for TPA given the absence of stroke. Past Medical History Past Medical History (Chronic Problems): Chronic Problems Seizure disorder (Chronic) Obesity (Chronic) HLD (hyperlipidemia) (Chronic) Type II diabetes mellitus (Chronic) Allergies Sulfa (Sulfonamide Antibiotics) Allergy (Intermediate, Verified 12/19/17 18:26) Hives Iodinated Contrast- Oral and IV Dye Allergy (Mild, Verified 12/19/17 18:26) Rash uncontrollable itching nortriptyline Adverse Reaction (Severe, Verified 12/19/17 18:26) Other lowered blood sugar, caused irregular hear rythym metformin Adverse Reaction (Intermediate, Verified 12/19/17 18:26) Diarrhea morphine Adverse Reaction (Verified 12/19/17 18:26) Itching Home Medications: Ambulatory Orders Medication Instructions Recorded Liraglutide [Victoza 2-Ben] 1.8 mg SQ DAILY 09/20/15 Topiramate [Topamax] 100 mg PO QHS 09/20/15 Topiramate [Topamax] 50 mg PO BREAKFAST 07/02/16 Gabapentin [Neurontin] 300 mg PO TIDCM 05/10/17 Insulin Glargine,Hum.rec.anlog 27 unit SQ QHS 05/10/17 [Lantus] Insulin Lispro [Humalog] 0 unit SQ TIDCM 05/10/17 traMADol [Ultram] 100 mg PO BID 05/10/17 Atorvastatin Calcium [Lipitor] 20 mg PO QHS #30 tab 11/13/17 Omeprazole [Prilosec] 10 mg PO DAILY 02/08/18 Surgical History: cholecystectomy, - - Embolization of vein in the uterus Psychiatric History: No pertinent psych hx CRITICAL CARE CNS History: No pertinent CRITICAL CARE CNS history Smoking Status: Never smoker - *Family History Maternal History Items: - - Rheumatoid arthritis Paternal History Items: No pertinent history Review of Systems Constitutional: Denies: Chills, Fever, Weight Change Eyes: Denies: Blurred vision HEENT: Reports: Difficulty Swallowing. Denies: Difficulty Hearing Cardiovascular: Denies: Chest Pressure Respiratory: Denies: Cough, Shortness of Breath Gastrointestinal: Reports: Dyspepsia, Nausea, Vomiting. Denies: Abdominal Pain, Constipation, Diarrhea Genitourinary: Denies: Dysuria Musculoskeletal: Reports: Joint stiffness, Joint swelling, Joint Tenderness Skin: Denies: Rash, Wounds Neurological: Reports: Change in Speech, Slurred speech, Difficulty swallowing, Focal weakness, Headaches Psychiatric: Reports: Anxiety Hematologic/ Lymphatic: Denies: Easy Bruising, Easy Bleeding Objective: On physical examination she is awake, alert, and fully conversant. Pupils are equal. Visual cope are intact. There is a right central 7 which resolves with distraction. Cranial nerves are otherwise intact There is severe weakness of her right upper extremity proximal greater than distal. She is able to move her hand and squeeze her right fingers. The patient is able to move her right leg but she cannot lifted off of the bed although the Canela's sign is positive. Strength and sensation is intact on the left side. Deep tendon reflexes are 2+ symmetrically, toes are downgoing bilaterally - Physical Exam Vital Signs Temp Pulse Resp BP Pulse Ox 36.6 C 77 12 125/90 H 96 02/08/18 09:40 02/08/18 10:43 02/08/18 10:43 02/08/18 10:43 02/08/18 10:43 Oxygen Delivery Method Room Air Weight: 90.718 kg Body Mass Index (BMI) 32.3 Finger Stick Blood Glucose 209 Laboratory Tests Past 24 Hrs 02/08/18 02/08/18 02/08/18 09:45 09:45 09:45 WBC 8.6 RBC 5.43 H Hgb 14.6 Hct 43.4 MCV 79.9 L MCH 26.9 L MCHC 33.6 RDW 14.5 RDW Differential 41.4 Plt Count 292 MPV 10.3 Immature Gran % (Auto) 0.200 Neut % (Auto) 56.5 Lymph % (Auto) 29.5 [place] % (Auto) 4.5 Eos % (Auto) 8.6 H Baso % (Auto) 0.7 Absolute Neuts (auto) 4.8 Absolute Lymphs (auto) 2.53 Total Counted Not Reportable PT 13.0 INR 1.0 APTT 24.4 Sodium 137 Potassium 3.7 Chloride 103 Carbon Dioxide 24.0 Anion Gap 10 BUN 15 Creatinine 0.97 Estim Creat Clear Calc 75.06 Est GFR (MDRD) Af Amer 84 Est GFR (MDRD) Non-Af 69 BUN/Creatinine Ratio 15.5 Glucose 209 H Calcium 8.7 Troponin I < 0.015 POC Glucose 02/08/18 09:45 POC Glucose 209 H Current Home Med List Medication Instructions Recorded Confirmed Type Liraglutide [Victoza 2-Ben] 1.8 mg SQ DAILY 09/20/15 12/19/17 History Topiramate [Topamax] 100 mg PO QHS 09/20/15 12/19/17 History Topiramate [Topamax] 50 mg PO BREAKFAST 07/02/16 12/19/17 History Gabapentin [Neurontin] 300 mg PO TIDCM 05/10/17 12/19/17 History Insulin Glargine,Hum.rec.anlog 27 unit SQ QHS 05/10/17 12/19/17 History [Lantus] Insulin Lispro [Humalog] 0 unit SQ TID 05/10/17 12/19/17 History traMADol [Ultram] 100 mg PO BID 05/10/17 12/19/17 History Atorvastatin Calcium [Lipitor] 20 mg PO QHS #30 tab 11/13/17 12/19/17 Rx Prednisone [Deltasone] 60 mg PO DAILY #15 tab 12/08/17 12/19/[address] reviewed, no acute mri reviewed, no acute. partial agenesis of cc Assessment/Plan All Active Problems Upper GI bleed (Acute) Right sided weakness (Acute) suspect complex migraine vs conversion. todds less likely remains weak on right side, therefore recommend admit with therapies, conservative care otherwise, home when ambulating safely. Plan was discussed with the patient who agrees. Also discussed with emergency department staff. Continue Topamax at the current dose. No need for EEG currently unless further evidence of ongoing seizures. cc time 70min
--- NOTE | 2018-02-08 10:58 | ED.DCSUM_ITS ---
- ER Visit Summary Date of Service: 02/08/18 Chief Complaint: [Weakness right arm and leg] History of Present Illness: The patient is a 37 F [presents the emergency department complaint of right arm and leg weakness. Patient states that she was in the tub and when she try to get out of the tub developed a sudden onset headache and noticed that her right arm was weak as well as her right leg. Patient states the headaches currently just mild and left-sided. Patient has a history of a left-sided AVM in her brain. Patient does have a history of migraines. Patient states she has had prior TIA in 2004. Patient denies any falls or head injuries. Denies recent illness.] Physical Examination: [HEENT-PERRLA, EOMI. Cranial nerves II through XII grossly intact. TMs clear. Mucous membranes moist. No adenopathy. Cardiovascular-regular rate and rhythm without murmur or ectopy Lungs-clear to auscultation, chest wall stable without crepitus or subcu emphysema Abdomen-normoactive bowel sounds, soft, nontender, no rebound or rigidity, no peritoneal signs. Neuro exam-NIH stroke scale was a 7 given for weakness to the right arm as well as right leg and paresthesias. On exam patient has no facial droop. Patient unable to lift right arm off the bed or keep it up. Patient has decreased sensation to the right arm and right leg. Patient is able to move the right leg as she did drive herself in however unable to keep it elevated off the bed. Extremities-intact ?4, normal range of motion, normal pulses, atraumatic] Test Results: [CT scan of the brain without contrast was normal. CBC with differential was normal. Chemistries were normal. EKG obtained showed sinus rhythm with no acute ST segment changes. Troponin was less than 0.015.] MRI of the brain was normal. Emergency Department Course and Treatment: [Dr. Warren Castro presented to the emergency department as initially we called a stroke team and patient was evaluated by Dr. Castro. After CT scan of the brain was obtained patient went directly to MRI.] Treatment Plan: [Case was discussed with Dr. Warren Castro who asked that we admit patient given that she continues to have ongoing weakness although there is no evidence for stroke at this time is felt her symptoms may be due to conversion disorder versus complex migraine.] Disposition: [Admit] Impression: [Cephalgia Right arm and leg weakness] This note was generated with [employer] dictation software. It may contain incorrect words, spelling, and punctuation that were not noted in review of the chart p rior to signing ED Disposition - Plan for ED Patient: Chief Complaint: Neuro S/Sx Referrals: Chris Espinal MD [Primary Care Provider] -
[2018-02-08] MEDS: DiphenhydrAMINE 50 MG/ML Syringe 25 MG IV (11:45)
[2018-02-08] MEDS: Ketorolac 30 MG/ML Syringe IV (11:47)
[2018-02-08] MEDS: Metoclopramide 10 MG/2 ML Vial IV (11:49)
--- NOTE | 2018-02-08 11:50 | PCM.HP.STD ---
Problem List (1) Seizure disorder Status: Chronic (2) Obesity Status: Chronic (3) HLD (hyperlipidemia) Status: Chronic (4) Right sided weakness Status: Acute (5) Type II diabetes mellitus Status: Chronic Qualifiers: Diabetes mellitus complication status: with other specified complication History of Present Illness Date of Admission: 02/08/18 Chief Complaint: Right sided weakness - 1 day The patient is a 37 year old F with past medical history of seizure disorder, on Topamax, rheumatoid arthritis, fibromyalgia, type 2 diabetes, on insulin, history of AV malformation comes in with complaints of right-sided weakness that came on suddenly this morning. Patient was having her bath, attempted to get out of the bathtub when she had severe weakness of the right arm and leg. She drove herself to the emergency department to be evaluated. She denied feeling unwell prior to that, denied any fever or chills. She also denied any headaches. Her last migraine headache was 4-5 months ago. She denied any stressors in her life lately. She lives at home with her boyfriend and has 1 child. In the emergency department, her vitals show blood pressure 128/81, heart rate of 90, respiratory rate of 18, temperature 97.8 F. Labs show WBC count of 8.6, Hb 14.6, platelet count of 292, INR 1.0, BMP was unremarkable. CT scan of the brain, MRI of the brain were negative for any acute changes Past Medical History Past Medical History (Chronic Problems): Chronic Problems Seizure disorder (Chronic) Obesity (Chronic) HLD (hyperlipidemia) (Chronic) Type II diabetes mellitus (Chronic) Allergies Sulfa (Sulfonamide Antibiotics) Allergy (Intermediate, Verified 02/08/18 11:32) Hives Iodinated Contrast- Oral and IV Dye Allergy (Mild, Verified 02/08/18 11:32) Rash uncontrollable itching nortriptyline Adverse Reaction (Severe, Verified 02/08/18 11:32) Other lowered blood sugar, caused irregular hear rythym metformin Adverse Reaction (Intermediate, Verified 02/08/18 11:32) Diarrhea morphine Adverse Reaction (Verified 02/08/18 11:32) Itching Home Medications: Ambulatory Orders Medication Instructions Recorded Liraglutide [Victoza 2-Ben] 1.8 mg SQ DAILY 09/20/15 Topiramate [Topamax] 100 mg PO QHS 09/20/15 Topiramate [Topamax] 50 mg PO BREAKFAST 07/02/16 Gabapentin [Neurontin] 300 mg PO TIDCM 05/10/17 Insulin Glargine,Hum.rec.anlog 27 unit SQ QHS 05/10/17 [Lantus] Insulin Lispro [Humalog] 0 unit SQ TIDCM 05/10/17 traMADol [Ultram] 100 mg PO BID 05/10/17 Atorvastatin Calcium [Lipitor] 20 mg PO QHS #30 tab 11/13/17 Omeprazole [Prilosec] 10 mg PO DAILY 02/08/18 Surgical History: cholecystectomy, - - Embolization of vein in the uterus Psychiatric History: No pertinent psych hx 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 Denies: Anorexia, Chills, Fever, Malaise, Weight Change Eyes: Denies: Blurred vision, Cataracts, Conjunctivae Inflammation, Double vision, Pain, Redness, Vision Change HEENT: Denies: Difficulty Hearing, Difficulty Swallowing, Head Aches, Hearing Changes, Sinus Congestion, Sinus Drainage Cardiovascular: Denies: Chest Pain, Claudication, Orthopnea, Palpitations Respiratory: Denies: Cough, Hemoptysis, Shortness of breath at rest, Shortness of breath upon exertion, Sputum production Gastrointestinal: Denies: Abdominal Pain, Constipation, Hematemesis, Nausea, Vomiting Genitourinary: Denies: Dysuria, Frequency, Incontinence Gynecological: Denies: Breast symptoms Musculoskeletal: Denies: Joint Pain, Joint stiffness, Joint swelling, Joint Tenderness Skin: Denies: Rash, Wounds Neurological: Denies: Numbness, Tingling, Focal weakness Psychiatric: Denies: Anxiety, Depression, Homicidal Ideations, Suicidal Ideations Hematologic/ Lymphatic: Denies: Easy Bruising, Easy Bleeding VTE Information - Inpt Only VTE Present on Admission: No VTE Pharm Prophylaxis ordered?: Yes - Physical Exam General: Alert, Oriented x3, Cooperative, No apparent distress, - - Obese, comfortable HEENT: Atraumatic, PERRLA, EOMI, Normocephalic Oral: Moist Mucosa Neck: Supple, No JVD, Negative Carotid Bruits Lungs: Clear to auscultation, Normal air movement Cardiovascular: Regular rate, Regular Rhythm, Normal S1, Normal S2, No murmurs Abdomen: Bowel Sounds Present, Soft, Non Tender, Non-Distended, No Hepato-splenomegaly, Obese Extremities: No edema Skin: No rashes, No breakdown Musculoskeletal: No Tenderness to Palpation of Joints or Extremities Lymphatic: Cervical Adenopathy Neurological: Cranial nerves II-XII grossly intact, Motor Exam 5/5 strength throughout - Except for power of 3/5 in right upper extremity and 4/5 in lower extremity Psych/Mental Status: Normal Affect, Appropriate Vital Signs Temp Pulse Resp BP Pulse Ox 97.8 F 77 12 125/90 H 96 02/08/18 09:40 02/08/18 10:43 02/08/18 10:43 02/08/18 10:43 02/08/18 10:43 Oxygen Delivery Method Room Air Weight: 90.718 kg Body Mass Index (BMI) 32.3 Finger Stick Blood Glucose 209 Laboratory Tests Past 24 Hrs 02/08/18 02/08/18 02/08/18 09:45 09:45 09:45 WBC 8.6 RBC 5.43 H Hgb 14.6 Hct 43.4 MCV 79.9 L MCH 26.9 L MCHC 33.6 RDW 14.5 RDW Differential 41.4 Plt Count 292 MPV 10.3 Immature Gran % (Auto) 0.200 Neut % (Auto) 56.5 Lymph % (Auto) 29.5 [place] % (Auto) 4.5 Eos % (Auto) 8.6 H Baso % (Auto) 0.7 Absolute Neuts (auto) 4.8 Absolute Lymphs (auto) 2.53 Total Counted Not Reportable PT 13.0 INR 1.0 APTT 24.4 Sodium 137 Potassium 3.7 Chloride 103 Carbon Dioxide 24.0 Anion Gap 10 BUN 15 Creatinine 0.97 Estim Creat Clear Calc 75.06 Est GFR (MDRD) Af Amer 84 Est GFR (MDRD) Non-Af 69 BUN/Creatinine Ratio 15.5 Glucose 209 H Calcium 8.7 Troponin I < 0.015 POC Glucose 02/08/18 09:45 POC Glucose 209 H Assessment/Plan All Active Problems Upper GI bleed (Acute) Right sided weakness (Acute) 37 year old F with past medical history of seizure disorder, on Topamax, rheumatoid arthritis, fibromyalgia, type 2 diabetes, on insulin, history of AV malformation comes in with complaints of right-sided weakness that came on suddenly this morning. 1. Acute onset of right-sided weakness, CT scan of the brain is negative as well as MRI of the brain, neurology consulted, possible causes complex migraine versus conversion disorder Patient admitted to the telemetry bed, PT and OT to evaluate and treat, monitor vitals and telemetry 2. Seizure disorder, on Topamax, would not recommend patient to be on tramadol, will recommend switching to Tylenol as needed vs oxycodone Continue with seizure precautions 3. Type II DM, on insulin, will continue with home insulin, Accu-Cheks and insulin sliding scale 4. Rheumatoid arthritis/fibromyalgia, on tramadol, will recommend being off tramadol on account of seizures, 5. History of AV malformation, stable 6. Obesity, BMI 33.7, diet and exercise is recommended 7. DVT Ppx- Lovenox SC Code Visit Inpatient E&M: 70923 Init Hosp L3
[2018-02-08] MEDS: Gabapentin 300 MG Capsule PO ×2 (14:53→17:17)
[2018-02-08] MEDS: oxyCODONE 5 MG Tablet PO ×2 (14:57→21:16)
[2018-02-08] MEDS: Acetaminophen 325 MG Tablet 650 MG PO ×2 (14:57→21:16)
[2018-02-08] MEDS: Insulin Lispro 100 UNIT/ML INSULN.PEN SQ (17:20)
[2018-02-08 17:35] LABS: Bedside Glucose 195 mg/dL (70-110)
[2018-02-08] MEDS: Atorvastatin Calcium 20 MG Tablet PO (21:17)
[2018-02-08] MEDS: Topiramate 100 MG Tablet PO (21:17)
[2018-02-08 21:31] LABS: Bedside Glucose 144 mg/dL (70-110)
[2018-02-09] VITALS (11 sets, daily range): BP systolic 121–136; BP diastolic 70–87; PULSE 63–83; RESP 16–18; TEMP 36.6–37.2; O2SAT 95–97
[2018-02-09] MEDS: Acetaminophen 325 MG Tablet 650 MG PO ×3 (03:19→20:53)
[2018-02-09] MEDS: oxyCODONE 5 MG Tablet PO ×2 (03:20→16:03)
[2018-02-09 06:35] LABS: Bedside Glucose 149 mg/dL (70-110)
[2018-02-09 06:44] LABS: Anion Gap 10 (5-15); BUN 18 mg/dL (7-18); BUN/Creat Ratio 19.4 RATIO (10-20); Calcium,Total 9.1 mg/dL (8.5-10.1); Chloride 103 mmol/L (98-107); Creatinine, Serum 0.93 mg/dL (0.55-1.02); EST Glomerular Filtration Rate 73 mL/min (>60); Est Glom Filt Rate - Afr Amer 88 mL/min (>60); Estimated Creatinine Clearance 78.29 ml/min; Glucose 160 mg/dL (74-106); Potassium 3.6 mmol/L (3.5-5.1); Sodium Level 140 mmol/L (136-145)
[2018-02-09] MEDS: Topiramate 50 MG Tablet PO (07:53)
[2018-02-09] MEDS: Gabapentin 300 MG Capsule PO ×3 (07:53→16:04)
--- NOTE | 2018-02-09 07:53 | PN_ITS ---
Subjective: Patient was seen and examined. Right-sided weakness is better. Working with physical therapy. Complains of headache, been on Tylenol and oxycodone, discussed with the patient I would not recommend narcotics for control of headaches Objective: Physical Exam General: Alert, Oriented x3, Cooperative, No apparent distress, - - Obese, comfortable HEENT: Atraumatic, PERRLA, EOMI, Normocephalic Oral: Moist Mucosa Neck: Supple, No JVD, Negative Carotid Bruits Lungs: Clear to auscultation, Normal air movement Cardiovascular: Regular rate, Regular Rhythm, Normal S1, Normal S2, No murmurs Abdomen: Bowel Sounds Present, Soft, Non Tender, Non-Distended, No Hepato- splenomegaly, Obese Extremities: No edema Skin: No rashes, No breakdown Musculoskeletal: No Tenderness to Palpation of Joints or Extremities Lymphatic: Cervical Adenopathy Neurological: Cranial nerves II-XII grossly intact, Motor Exam 5/5 strength throughout - Except for power of 3/5 in right upper extremity and 4/5 in lower extremity Vitals/I&O's: Vital Signs Temp Pulse Resp BP Pulse Ox 97.9 F 73 18 128/77 H 96 02/09/18 07:48 02/09/18 07:48 02/09/18 07:48 02/09/18 07:48 02/09/18 07:48 Oxygen Delivery Method Room Air Weight: 95.6 kg Body Mass Index (BMI) 33.6 Finger Stick Blood Glucose 209 Intake and Output for Last 24 Hours 02/07/18 02/08/18 02/09/18 23:59 23:59 23:59 Intake Total 600 / 600 Balance 600 / 600 Laboratory Results 02/08/18 09:45: WBC 8.6, RBC 5.43 H, Hgb 14.6, Hct 43.4, MCV 79.9 L, MCH 26.9 L, MCHC 33.6, RDW 14.5, RDW Differential 41.4, Plt Count 292, MPV 10.3, Immature Gran % (Auto) 0.200, Neut % (Auto) 56.5, Lymph % (Auto) 29.5, [place] % (Auto) 4.5, Eos % (Auto) 8.6 H, Baso % (Auto) 0.7, Absolute Neuts (auto) 4.8, Absolute Lymphs (auto) 2.53, Total Counted Not Reportable 02/08/18 09:45: PT 13.0, INR 1.0, APTT 24.4 02/08/18 09:45: Sodium 137, Potassium 3.7, Chloride 103, Carbon Dioxide 24.0, Anion Gap 10, BUN 15, Creatinine 0.97, Estim Creat Clear Calc 75.06, Est GFR (MDRD) Af Amer 84, Est GFR (MDRD) Non-Af 69, BUN/Creatinine Ratio 15.5, Glucose 209 H, Calcium 8.7, Troponin I < 0.015 02/08/18 09:45: POC Glucose 209 H 02/08/18 17:14: POC Glucose 195 H 02/08/18 21:22: POC Glucose 144 H 02/09/18 05:25: Sodium 140, Potassium 3.6, Chloride 103, Carbon Dioxide 27.0, Anion Gap 10, BUN 18, Creatinine 0.93, Estim Creat Clear Calc 78.29, Est GFR (MDRD) Af Amer 88, Est GFR (MDRD) Non-Af 73, BUN/Creatinine Ratio 19.4, Glucose 160 H, Calcium 9.1 02/09/18 06:30: POC Glucose 149 H Current Medications Acetaminophen (Tylenol) 650 mg PO Q6H PRN PRN PRN Reason: Mild Pain (1-3)/Temp > 100.7 F Last Admin: 02/09/18 03:19 Dose: 650 mg Atorvastatin Calcium (Lipitor) 20 mg PO QHS [facility] Last Admin: 02/08/18 21:17 Dose: 20 mg Dextrose (D50w Syringe) 0 gm IV X1 PRN; Protocol PRN Reason: Hypoglycemia Enoxaparin Sodium (Lovenox) 40 mg SC DAILY@1000 [facility] Gabapentin (Neurontin) 300 mg PO TIDCM [facility] Last Admin: 02/08/18 17:17 Dose: 300 mg Glucagon () 1 mg IM .X1 PRN PRN Reason: Hypoglycemia Influenza Virus Vaccine Quadrival (Fluarix/Fluzone) 0.5 ml IM .ONCE ONE Stop: 02/09/18 10:01 Insulin Glargine (Lantus (Bk)) 27 units SC QHS [facility] Last Admin: 02/08/18 21:24 Dose: 27 u Insulin Human Lispro (Humalog Kwikpen ([facility])) 0 unit SQ ACHS [facility]; Protocol Last Admin: 02/09/18 06:33 Dose: Not Given Magnesium Hydroxide (Milk Of Magnesia) 30 ml PO DAILY PRN PRN PRN Reason: Constipation Oxycodone HCl (Oxyir) 5 mg PO Q6H PRN PRN PRN Reason: SEVERE PAIN (6-10/10) Last Admin: 02/09/18 03:20 Dose: 5 mg Pantoprazole Sodium (Protonix) 20 mg PO DAILY [facility] Sodium Chloride () 5 - 30 ml IV UD PRN PRN Reason: SALINE FLUSH Topiramate (Topamax) 50 mg PO BREAKFAST [facility] Topiramate (Topamax) 100 mg PO QHS [facility] Last Admin: 02/08/18 21:17 Dose: 100 mg Medical Necessity - Tobacco Use Smoking Status: Never smoker Tobacco Use: Non-smoker Assessment/Plan All Active Problems Upper GI bleed (Acute) Right sided weakness (Acute) 37 year old F with past medical history of seizure disorder, on Topamax, rheumatoid arthritis, fibromyalgia, type 2 diabetes, on insulin, history of AV malformation comes in with complaints of right-sided weakness that came on suddenly this morning. 1. Acute onset of right-sided weakness,gradually improving, likely secondary to complex migraine versus conversion disorder CT scan of the brain is negative as well as MRI of the brain, Neurology consulted, Continue with physical and occupational therapy treatment, patient will be discharged to acute inpatient rehab 2. Seizure disorder, on Topamax, off tramadol, continue with seizure precautions 3. Type II DM, on insulin, blood sugars fairly controlled, cannot be on her Victoza during the hospital stay because it is not on formulary, will continue with home insulin, Accu-Cheks and insulin sliding scale 4. Migraines, complex, will continue on NSAIDs, topamax 5. Rheumatoid arthritis/fibromyalgia, was on tramadol, will recommend being off tramadol on account of seizures, 6. History of AV malformation, stable 7. Obesity, BMI 33.7, diet and exercise is recommended 8. DVT Ppx- Lovenox SC 9. Disposition: Waiting on insurance precertification for discharge to group home facility Code Visit Inpatient E&M: 48810 Subs Hosp L2
[2018-02-09] MEDS: Pantoprazole Sodium 20 MG Tablet PO (07:54)
[2018-02-09] MEDS: Enoxaparin 40 MG/0.4 ML Syringe SC (07:54)
[2018-02-09] MEDS: Ibuprofen 400 MG Tablet PO (09:33)
[2018-02-09] MEDS: Insulin Lispro 100 UNIT/ML INSULN.PEN SQ ×3 (11:04→21:39)
[2018-02-09 11:10] LABS: Bedside Glucose 273 mg/dL (70-110)
--- NOTE | 2018-02-09 12:41 | PN.NEURO_ITS ---
Subjective: no headache, feels she is somewhat improved. tolerating therapies, will to come to rehab unit. - Physical Exam General: Alert, Oriented x3, Cooperative HEENT: Atraumatic, PERRLA, EOMI, Normocephalic Extremities: No edema, Capillary Refill Less than 3 Seconds Skin: No rashes, No breakdown Musculoskeletal: No Tenderness to Palpation of Joints or Extremities Neurological: Cranial nerves II-XII grossly intact Psych/Mental Status: Normal Affect Vital Signs Temp Pulse Resp BP Pulse Ox 36.6 C 83 18 128/77 H 95 02/09/18 07:48 02/09/18 11:44 02/09/18 07:48 02/09/18 07:48 02/09/18 08:20 Oxygen Delivery Method Room Air Weight: 95.6 kg Body Mass Index (BMI) 33.6 Finger Stick Blood Glucose 209 Intake and Output for Last 24 Hours 02/07/18 02/08/18 02/09/18 23:59 23:59 23:59 Intake Total 1100 / 1100 Balance 1100 / 1100 Laboratory Tests Past 24 Hrs 02/09/18 05:25 Sodium 140 Potassium 3.6 Chloride 103 Carbon Dioxide 27.0 Anion Gap 10 BUN 18 Creatinine 0.93 Estim Creat Clear Calc 78.29 Est GFR (MDRD) Af Amer 88 Est GFR (MDRD) Non-Af 73 BUN/Creatinine Ratio 19.4 Glucose 160 H Calcium 9.1 POC Glucose 02/09/18 02/09/18 02/08/18 11:03 06:30 21:22 POC Glucose 273 H 149 H 144 H 02/08/18 17:14 POC Glucose 195 H Current Medications Generic Name Dose Route Start Last Admin Trade Name Freq PRN Reason Stop Dose Admin Acetaminophen 650 mg 02/08/18 12:30 02/09/18 11:04 Tylenol PO 650 mg Q6H PRN PRN Administration Mild Pain (1-3)/Temp > 100.7 F Atorvastatin Calcium 20 mg 02/08/18 22:00 02/08/18 21:17 Lipitor PO 20 mg QHS [facility] Administration Dextrose 0 gm 02/08/18 13:38 D50w Syringe IV X1 PRN Hypoglycemia Protocol Enoxaparin Sodium 40 mg 02/09/18 10:00 02/09/18 07:54 Lovenox SC 40 mg DAILY@1000 [facility] Administration Gabapentin 300 mg 02/08/18 13:30 02/09/18 11:04 Neurontin PO 300 mg TIDCM [facility] Administration Glucagon 1 mg 02/08/18 13:38 IM .X1 PRN Hypoglycemia Ibuprofen 400 mg 02/09/18 09:01 02/09/18 09:33 Motrin PO 400 mg TID PRN Administration HEADACHE Insulin Glargine 27 units 02/08/18 22:00 02/08/18 21:24 Lantus ([facility]) SC 27 u QHS [facility] Administration Insulin Human Lispro 0 unit 02/08/18 16:00 02/09/18 11:04 Humalog Kwikpen ([facility]) SQ 3 u ACHS [facility] Administration Protocol Magnesium Hydroxide 30 ml 02/08/18 12:30 Milk Of Magnesia PO DAILY PRN PRN Constipation Oxycodone HCl 5 mg 02/08/18 13:49 02/09/18 03:20 Oxyir PO 5 mg Q6H PRN PRN Administration SEVERE PAIN (6-10/10) Pantoprazole Sodium 20 mg 02/09/18 10:00 02/09/18 07:54 Protonix PO 20 mg DAILY [facility] Administration Sodium Chloride 5 - 30 ml 02/08/18 13:45 IV UD PRN SALINE FLUSH Topiramate 50 mg 02/09/18 08:00 02/09/18 07:53 Topamax PO 50 mg BREAKFAST [facility] Administration Topiramate 100 mg 02/08/18 22:00 02/08/18 21:17 Topamax PO 100 mg QHS [facility] Administration Medical Necessity - Tobacco Use Smoking Status: Never smoker Tobacco Use: Non-smoker Assessment/Plan All Active Problems Upper GI bleed (Acute) Right sided weakness (Acute) suspect complex migraine vs conversion. todds less likely improved, still very weak, consider rehab recommend ssri, pt agrees
--- NOTE | 2018-02-09 12:50 | CASEMGMT ---
Addendum entered by Lissett Brar 02/09/18 14:11: LYNDA MANCERA in to talk with pt after Dr Castro saw pt and pt stated to LYNDA MANCERA she is interested in going to in-pt rehab unit for therapy. Original Note: LYNDA MANCERA NOTE: PT/OT completed today and notes reviewed. Dr Castro also in to see pt. Pt states is interested in going to in-pt rehab unit. Consult placed to Arlene PARHAM. Sonja MILESN LYNDA CM
--- NOTE | 2018-02-09 13:10 | CASEMGMT ---
Addendum entered by Lissett Brar 02/09/18 14:08: This initial review assessment occurred @ 1115. Pt also states she has all her diabetic supplies and medications and has no difficulty with being able to afford them. Original Note: LYNDA MANCERA INITIAL REVIEW ASSESSMENT D/C PLAN: Undetermined. Face to Face with patient for initial transition planning/care coordination assessment. LYNDA MANCERA introduced self and role at [facility]. Care providers, pharmacy, and demographics verified. PCP: Chris Espinal Preferred Pharmacy: [facility]. [facility] retail on day of discharge only Insurance: [employer] Medicare Living Will/HPOA: Does not have Adv Directives and declines offer of information. LNOK: Mother, Maday Alberts Living Arrangements: Lives with her boyfriend Transportation: Drove prior to admission DME: Denies using any DME prior to admission. HHC: Has never used HHC in past or been to a [facility] facility. Pt states she would be interested in doing out-pt therapy at [facility] if she is discharged home. Awaiting PT/OT humberto. CM to follow for any further discharge planning needs that may arise. Sonja MCKEE RN, CM
--- NOTE | 2018-02-09 13:19 | CASEMGMT ---
Social Work SW spoke with Dr. Castro and DESHAUN Galeana. Per physician pt would be appropriate candidate for Inpt Rehab and RN CM confirms pt would want this. Phone call to Hannah in Inpt Rehab and referral made. Beds are available will submit to insurance for [facility]. Pt made aware that preauth will be needed and discharge to rehab is dependent on this. SW to follow up. Plan: Inpatient Rehab, pending insurance MICHEAL Heaton
[2018-02-09] MEDS: Escitalopram Oxalate 10 MG Tablet PO (14:36)
[2018-02-09 16:11] LABS: Bedside Glucose 229 mg/dL (70-110)
[2018-02-09] MEDS: 0.9% NaCl Peripheral Flush Adult/Peds IV (18:55)
[2018-02-09] MEDS: HYDROmorphone 1 MG/ML Syringe IV (18:55)
[2018-02-09] MEDS: Atorvastatin Calcium 20 MG Tablet PO (21:42)
[2018-02-09] MEDS: Topiramate 100 MG Tablet PO (21:42)
[2018-02-09 21:45] LABS: Bedside Glucose 308 mg/dL (70-110)
[2018-02-10 02:01] VITALS: PULSE 67
[2018-02-10 02:55] VITALS: BP 126/76; PULSE 74; RESP 16; TEMP 36.9; O2SAT 97
[2018-02-10] MEDS: Acetaminophen 325 MG Tablet 650 MG PO (06:02)
[2018-02-10] MEDS: Insulin Lispro 100 UNIT/ML INSULN.PEN SQ ×2 (06:35→12:13)
[2018-02-10 06:40] LABS: Bedside Glucose 226 mg/dL (70-110)
[2018-02-10 07:16] VITALS: O2SAT 96
[2018-02-10] MEDS: Pantoprazole Sodium 20 MG Tablet PO (08:43)
[2018-02-10] MEDS: Topiramate 50 MG Tablet PO (08:44)
[2018-02-10] MEDS: Escitalopram Oxalate 10 MG Tablet PO (08:44)
[2018-02-10] MEDS: Gabapentin 300 MG Capsule PO ×2 (08:44→12:12)
[2018-02-10] MEDS: Enoxaparin 40 MG/0.4 ML Syringe SC (08:44)
[2018-02-10] MEDS: Ibuprofen 400 MG Tablet PO (08:47)
[2018-02-10 08:55] VITALS: BP 148/71; PULSE 72; RESP 16; TEMP 36.9; O2SAT 97
[2018-02-10 08:59] VITALS: PULSE 65; RESP 16; O2SAT 97
[2018-02-10 09:00] VITALS: PULSE 79
--- NOTE | 2018-02-10 09:15 | PCM.PN.HOSP ---
Subjective: Patient with no acute events overnight per self and per nursing report. Patient has been advancing well with physical and occupational therapy and right sided weakness has been improving. Patient has been witnessed to utilize her right side more when she feels as though she is not being observed and was able to return from chair to bed without any assistance. Given patient improvement with therapy patient not candidate for acute rehabilitation therefore discharged planned for home with outpatient therapies to which patient was amenable. Encouraged continued usage of walker. Patient notes still intermittent headache although not severe. Patient denies fevers, chills, nausea, emesis, abdominal pain, chest pain or dyspnea. Objective: Physical Examination: General: awake, alert, oriented x 3 and cooperative, seated upright in bed in no apparent distress. Skin: normal color, turgor, no icterus, cyanosis. HEENT: AT/NC, EOMI, PERRLA, MMM. Lungs: CTA bilaterally, moderate effort, mild decrease BL bases, no rales, ronchi or wheezing. Heart: Regular rate and rhythm; no gallop, rub audible. Abdomen: soft, obese, NTTP, ND, normal BS. Extremities: no cyanosis, clubbing, mild BL ankle edema. Neurological: patient awake, alert, oriented x 3; cognitive function intact; pupils equally reactive to light and accomodation; cranial nerves II-XII grossly normal, moving all 4 extremities, strength improves R sided w/ distraction otherwise R sided RUE>RLE, FTN, HTN intact, sensation intact, + ugarte sign. Psychiatric: affect appears normal, no acute evidence of depressive or anxiety feelings. Vitals/I&O's: Vital Signs Temp Pulse Resp BP Pulse Ox 98.4 F 65 16 148/71 H 97 02/10/18 08:55 02/10/18 08:59 02/10/18 08:59 02/10/18 08:55 02/10/18 08:59 Oxygen Delivery Method Room Air Weight: 209 lb 3.499 oz Body Mass Index (BMI) 33.6 Finger Stick Blood Glucose 209 Intake and Output for Last 24 Hours 02/08/18 02/09/18 02/10/18 23:59 23:59 23:59 Intake Total 1460 / 1460 850 / 850 Balance 1460 / 1460 850 / 850 Laboratory Results 02/09/18 11:03: POC Glucose 273 H 02/09/18 16:06: POC Glucose 229 H 02/09/18 21:36: POC Glucose 308 H 02/10/18 06:33: POC Glucose 226 H Current Medications Acetaminophen (Tylenol) 650 mg PO Q6H PRN PRN PRN Reason: Mild Pain (1-3)/Temp > 100.7 F Last Admin: 02/10/18 06:02 Dose: 650 mg Atorvastatin Calcium (Lipitor) 20 mg PO QHS [facility] Last Admin: 02/09/18 21:42 Dose: 20 mg Dextrose (D50w Syringe) 0 gm IV X1 PRN; Protocol PRN Reason: Hypoglycemia Enoxaparin Sodium (Lovenox) 40 mg SC DAILY@1000 [facility] Last Admin: 02/10/18 08:44 Dose: 40 mg Escitalopram Oxalate (Lexapro) 10 mg PO DAILY [facility] Last Admin: 02/10/18 08:44 Dose: 10 mg Gabapentin (Neurontin) 300 mg PO TIDCM [facility] Last Admin: 02/10/18 08:44 Dose: 300 mg Glucagon () 1 mg IM .X1 PRN PRN Reason: Hypoglycemia Ibuprofen (Motrin) 400 mg PO TID PRN PRN Reason: HEADACHE Last Admin: 02/10/18 08:47 Dose: 400 mg Insulin Glargine (Lantus ([facility])) 27 units SC QHS [facility] Last Admin: 02/09/18 21:39 Dose: 27 u Insulin Human Lispro (Humalog Kwikpen ([facility])) 0 unit SQ ACHS [facility]; Protocol Last Admin: 02/10/18 06:35 Dose: 2 u Magnesium Hydroxide (Milk Of Magnesia) 30 ml PO DAILY PRN PRN PRN Reason: Constipation Oxycodone HCl (Oxyir) 5 mg PO Q6H PRN PRN PRN Reason: SEVERE PAIN (6-10/10) Last Admin: 02/09/18 16:03 Dose: 5 mg Pantoprazole Sodium (Protonix) 20 mg PO DAILY [facility] Last Admin: 02/10/18 08:43 Dose: 20 mg Sodium Chloride () 5 - 30 ml IV UD PRN PRN Reason: SALINE FLUSH Last Admin: 02/09/18 18:55 Dose: 10 ml Topiramate (Topamax) 50 mg PO BREAKFAST [facility] Last Admin: 02/10/18 08:44 Dose: 50 mg Topiramate (Topamax) 100 mg PO QHS [facility] Last Admin: 02/09/18 21:42 Dose: 100 mg Medical Necessity - Tobacco Use Smoking Status: Never smoker Tobacco Use: Non-smoker Assessment/Plan All Active Problems Upper GI bleed (Acute) Right sided weakness (Acute) The patient is a 37 y/o F w/ PMHx: Diabetes mellitus type II, HLD, Obesity, Seizure disorder, Rheumatoid Arthritis, History of AVM, Fibromyalgia, Hx Migraine Headaches who presents to the [facility] ED on 02/08/18 with history of onset acute R sided weakness. 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 (2) ? Seizure disorder: Currently maintained on topamax, defer regimen to Neurology. (3) Diabetes mellitus type II w/ Neuropathy: Hold oral home regimen, continue home insulin regimen, ADA diet, accu checks w/ ISS, continue home gabapentin regimen. (4) Hyperlipidemia: Maintain on home statin regimen. (5) Rheumatoid Arthritis, Fibromyalgia: On chronic regimen, tramadol, recommendation wean secondary to seizure history. Currently on PRN oxycodone, IBU. (6) Obesity: Weight loss and lifestyle changes encouraged. (7) History of AVM: Stable. (8) GERD: PPI. (9) DVT Prophylaxis: SCDs, lovenox.
--- NOTE | 2018-02-10 09:23 | PN_ITS ---
Subjective: Patient with no acute events overnight per self and per nursing report. Patient has been advancing well with physical and occupational therapy and right sided weakness has been improving. Patient has been witnessed to utilize her right side more when she feels as though she is not being observed and was able to return from chair to bed without any assistance. Given patient improvement with therapy patient not candidate for acute rehabilitation therefore discharged planned for home with outpatient therapies to which patient was amenable. E ncouraged continued usage of walker. Patient notes still intermittent headache although not severe. Patient denies fevers, chills, nausea, emesis, abdominal pain, chest pain or dyspnea. Objective: Physical Examination: General: awake, alert, oriented x 3 and cooperative, seated upright in bed in no apparent distress. Skin: normal color, turgor, no icterus, cyanosis. HEENT: AT/NC, EOMI, PERRLA, MMM. Lungs: CTA bilaterally, moderate effort, mild decrease BL bases, no rales, ronchi or wheezing. Heart: Regular rate and rhythm; no gallop, rub audible. Abdomen: soft, obese, NTTP, ND, normal BS. Extremities: no cyanosis, clubbing, mild BL ankle edema. Neurological: patient awake, alert, oriented x 3; cognitive function intact; pupils equally reactive to light and accomodation; cranial nerves II-XII grossly normal, moving all 4 extremities, strength improves R sided w/ distraction otherwise R sided RUE>RLE, FTN, HTN intact, sensation intact, + ugarte sign. Psychiatric: affect appears normal, no acute evidence of depressive or anxiety feelings. Vitals/I&O's: Vital Signs Temp Pulse Resp BP Pulse Ox 98.4 F 65 16 148/71 H 97 02/10/18 08:55 02/10/18 08:59 02/10/18 08:59 02/10/18 08:55 02/10/18 08:59 Oxygen Delivery Method Room Air Weight: 209 lb 3.499 oz Body Mass Index (BMI) 33.6 Finger Stick Blood Glucose 209 Intake and Output for Last 24 Hours 02/08/18 02/09/18 02/10/18 23:59 23:59 23:59 Intake Total 1460 / 1460 850 / 850 Balance 1460 / 1460 850 / 850 Laboratory Results 02/09/18 11:03: POC Glucose 273 H 02/09/18 16:06: POC Glucose 229 H 02/09/18 21:36: POC Glucose 308 H 02/10/18 06:33: POC Glucose 226 H Current Medications Acetaminophen (Tylenol) 650 mg PO Q6H PRN PRN PRN Reason: Mild Pain (1-3)/Temp > 100.7 F Last Admin: 02/10/18 06:02 Dose: 650 mg Atorvastatin Calcium (Lipitor) 20 mg PO QHS [facility] Last Admin: 02/09/18 21:42 Dose: 20 mg Dextrose (D50w Syringe) 0 gm IV X1 PRN; Protocol PRN Reason: Hypoglycemia Enoxaparin Sodium (Lovenox) 40 mg SC DAILY@1000 [facility] Last Admin: 02/10/18 08:44 Dose: 40 mg Escitalopram Oxalate (Lexapro) 10 mg PO DAILY [facility] Last Admin: 02/10/18 08:44 Dose: 10 mg Gabapentin (Neurontin) 300 mg PO TIDCM [facility] Last Admin: 02/10/18 08:44 Dose: 300 mg Glucagon () 1 mg IM .X1 PRN PRN Reason: Hypoglycemia Ibuprofen (Motrin) 400 mg PO TID PRN PRN Reason: HEADACHE Last Admin: 02/10/18 08:47 Dose: 400 mg Insulin Glargine (Lantus ([facility])) 27 units SC QHS [facility] Last Admin: 02/09/18 21:39 Dose: 27 u Insulin Human Lispro (Humalog Kwikpen ([facility])) 0 unit SQ ACHS [facility]; Protocol Last Admin: 02/10/18 06:35 Dose: 2 u Magnesium Hydroxide (Milk Of Magnesia) 30 ml PO DAILY PRN PRN PRN Reason: Constipation Oxycodone HCl (Oxyir) 5 mg PO Q6H PRN PRN PRN Reason: SEVERE PAIN (6-10/10) Last Admin: 02/09/18 16:03 Dose: 5 mg Pantoprazole Sodium (Protonix) 20 mg PO DAILY [facility] Last Admin: 02/10/18 08:43 Dose: 20 mg Sodium Chloride () 5 - 30 ml IV UD PRN PRN Reason: SALINE FLUSH Last Admin: 02/09/18 18:55 Dose: 10 ml Topiramate (Topamax) 50 mg PO BREAKFAST [facility] Last Admin: 02/10/18 08:44 Dose: 50 mg Topiramate (Topamax) 100 mg PO QHS [facility] Last Admin: 02/09/18 21:42 Dose: 100 mg Medical Necessity - Tobacco Use Smoking Status: Never smoker Tobacco Use: Non-smoker Assessment/Plan All Active Problems Upper GI bleed (Acute) Right sided weakness (Acute) The patient is a 37 y/o F w/ PMHx: Diabetes mellitus type II, HLD, Obesity, Seizure disorder, Rheumatoid Arthritis, History of AVM, Fibromyalgia, Hx Migraine Headaches who presents to the [facility] ED on 02/08/18 with history of onset acute R sided weakness. 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 (2) ? Seizure disorder: Currently maintained on topamax, defer regimen to Neurology. (3) Diabetes mellitus type II w/ Neuropathy: Hold oral home regimen, continue home insulin regimen, ADA diet, accu checks w/ ISS, continue home gabapentin regimen. (4) Hyperlipidemia: Maintain on home statin regimen. (5) Rheumatoid Arthritis, Fibromyalgia: On chronic regimen, tramadol, recommendation wean secondary to seizure history. Currently on PRN oxycodone, IBU. (6) Obesity: Weight loss and lifestyle changes encouraged. (7) History of AVM: Stable. (8) GERD: PPI. (9) DVT Prophylaxis: SCDs, lovenox.
[2018-02-10 11:10] LABS: Bedside Glucose 214 mg/dL (70-110)
--- NOTE | 2018-02-10 11:23 | PCM.DC ---
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 (2) Seizure disorder (3) Diabetes mellitus type II w/ Neuropathy (4) Hyperlipidemia (5) Rheumatoid Arthritis, Fibromyalgia (6) Obesity (7) History of AVM (8) GERD You will use the following diet at home:: Calorie/Carbohydrate Controlled (specify 1200, 1400, etc), Cardiac Your food should be the consistency of: Regular Your liquids should be the consistency of: Regular/Thin Discharge Activity: Return to Normal Activity, Use Walker May resume sexual activity in: No Restrictions Weight Bearing Status: Weight bearing as tolerated Call your doctor if you observe: Fever of 101 or Higher, Inability to urinate, Inability to have a bowel movement, Shortness of breath, Dizziness, Fainting spells, Chest pain, Uncontrolled pain Instructions: What Are Migraine and Tension Headaches?, Migraines and Cluster Headaches, Self-Care for Headaches, Understanding Headache Pain, Migraine Headache: Stages and Treatment Allergies/Adverse Reactions: Allergies Sulfa (Sulfonamide Antibiotics) Allergy (Intermediate, Verified 02/08/18 11:32) Hives Iodinated Contrast- Oral and IV Dye Allergy (Mild, Verified 02/08/18 11:32) Rash uncontrollable itching nortriptyline Adverse Reaction (Severe, Verified 02/08/18 11:32) Other lowered blood sugar, caused irregular hear rythym metformin Adverse Reaction (Intermediate, Verified 02/08/18 11:32) Diarrhea morphine Adverse Reaction (Verified 02/08/18 11:32) Itching Medications to take at Discharge Liraglutide [Victoza 2-Ben] 1.8 mg SQ DAILY 09/20/15 Topiramate [Topamax] 100 mg PO QHS 09/20/15 Topiramate [Topamax] 50 mg PO BREAKFAST 07/02/16 Gabapentin [Neurontin] 300 mg PO TIDCM 05/10/17 Insulin Glargine,Hum.rec.anlog [Lantus] 27 unit SQ QHS 05/10/17 Insulin Lispro [Humalog] 0 unit SQ TIDCM 05/10/17 traMADol [Ultram] 100 mg PO BID 05/10/17 Atorvastatin Calcium [Lipitor] 20 mg PO QHS #30 tab 11/13/17 Omeprazole [Prilosec] 10 mg PO DAILY 02/08/18 Acetaminophen [Tylenol Tablet] 650 mg PO Q6H PRN PRN #0 tablet 02/10/18 Escitalopram Oxalate [Lexapro] 10 mg PO DAILY #30 tablet 02/10/18 Ibuprofen [Motrin] 400 mg PO TID PRN 2 Days #6 tablet 02/10/18 The following prescriptions were given: Escitalopram Oxalate [Lexapro] 10 mg PO DAILY #30 tablet Ibuprofen [Motrin] 400 mg PO TID PRN 2 Days #6 tablet PRN Reason: Headache Primary Care Physician: Chris Espinal MD [Primary Care Provider] - Please follow up with your Primary Care Physician in: Follow-up within 3-5 days to review admission. Test Results: Test results from this visit will be discussed in further detail at your follow-up appointment, if applicable. Please Follow Up With: Warren Castro MD When: Follow-up within 1-2 weeks, may see RETURN TO SERVICE INSPECTOR. Proposed Discharge Date: 02/10/18
--- NOTE | 2018-02-10 11:25 | PCM.DC.SUM ---
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 Castro Neurology Operations: None Procedures: None Summary of Care Provided: The patient is a 37 y/o F w/ PMHx: Diabetes mellitus type II, HLD, Obesity, Seizure disorder, Rheumatoid Arthritis, History of AVM, Fibromyalgia, Hx Migraine Headaches who presents to the [facility] ED on 02/08/18 with history of onset acute R sided weakness. 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 with no acute abnormality, nor brain with dysgenesis of the corpus callosum with no acute abnormality, CBC CBC, coags unremarkable, BMP only notable for hyperglycemia glucose 209, troponin less than 0.015, admitted to [place] on telemetry, maintained on topamax home regimen, SSRI added per Neurology, maintained on PRN IBU, PT, OT, CM evaluation w/ planned Acute Rehab transition per Neurology recommendation initially; however, improved notably and transitioned to discharge to home without patient therapies therefore given clinical improvement patient discharged to home with outpatient therapies w/ recommendation to follow-up with Neurology and avoid migraine stressors/triggers. Discharge Activity: Return to Normal Activity, Use Walker May resume sexual activity in: No Restrictions Weight Bearing Status: Weight bearing as tolerated Call your doctor if you observe: Fever of 101 or Higher, Inability to urinate, Inability to have a bowel movement, Shortness of breath, Dizziness, Fainting spells, Chest pain, Uncontrolled pain Home Medications: Medications to take at Discharge Liraglutide [Victoza 2-Ben] 1.8 mg SQ DAILY 09/20/15 Topiramate [Topamax] 100 mg PO QHS 09/20/15 Topiramate [Topamax] 50 mg PO BREAKFAST 07/02/16 Gabapentin [Neurontin] 300 mg PO TIDCM 05/10/17 Insulin Glargine,Hum.rec.anlog [Lantus] 27 unit SQ QHS 05/10/17 Insulin Lispro [Humalog] 0 unit SQ TIDCM 05/10/17 traMADol [Ultram] 100 mg PO BID 05/10/17 Atorvastatin Calcium [Lipitor] 20 mg PO QHS #30 tab 11/13/17 Omeprazole [Prilosec] 10 mg PO DAILY 02/08/18 Acetaminophen [Tylenol Tablet] 650 mg PO Q6H PRN PRN #0 tablet 02/10/18 Escitalopram Oxalate [Lexapro] 10 mg PO DAILY #30 tablet 02/10/18 Ibuprofen [Motrin] 400 mg PO TID PRN 2 Days #6 tablet 02/10/18 Following Prescrptions Were Given to Patient: Escitalopram Oxalate [Lexapro] 10 mg PO DAILY #30 tablet Ibuprofen [Motrin] 400 mg PO TID PRN 2 Days #6 tablet PRN Reason: Headache Primary Care Physician: Chris Espinal MD [Primary Care Provider] - Please follow up with your Primary Care Physician in: Follow-up within 3-5 days to review admission. Please Follow Up With: Warren Castro MD When: Follow-up within 1-2 weeks, may see PANELBOARD TANK PUMPER. Patient Instructions: What Are Migraine and Tension Headaches?, Migraines and Cluster Headaches, Self-Care for Headaches, Understanding Headache Pain, Migraine Headache: Stages and Treatment Disposition: Home Minutes spent on discharge:: 35 Patient Condition:: Fair Medical Necessity - Tobacco Use Smoking Status: Never smoker Tobacco Use: Non-smoker Meaningful Use Info Meaningful Use Diagnoses (Choose all that apply): None applicable Code Visit Inpatient E&M: 17289 Disch Hosp
--- NOTE | 2018-02-10 11:52 | CASEMGMT ---
LYNDA MANCERA NOTE: PT/OT evals completed and reviewed. Ambulation/mobilty improving. Acute rehab level of care no longer appropriate. Pt agreeable to discharging home with out-pt therapy. Prefers going to out-pt therapy @ [facility] instead of receiving [facility] services. Scripts for OT/PT obtained from Dr Hernandez and faxed to [employer] and appts made by elementary secretary. Call placed to [employer] and they confirmed script was received. Pt states either her BF or mother may be able to provide transportation to her appts. Pt given [facility] [employer] transportation information so she can call for transportation in the event she is unable to find a ride. Script also obtained for wheeled walker. Pt stated has no preference of [employer] company. Script faxed to [employer] and they confirmed they received the fax. They are aware pt being discharged today and will deliver the walker to pt's room around 1300. Pt made aware of all of the above. Sonja MCKEE RN, CM
--- NOTE | 2018-02-10 12:25 | NURSING ---
offerred to set pt up for ride home w/ [facility]vin, pt declines
--- NOTE | 2018-02-10 13:25 | CASEMGMT ---
Social Work Note Pt is being discharged home now with outpatient therapy. SW placed a call to Hannah with [employer] and left her a message informing her of this. Plan: Home with outpatient therapy. Karina Bennett GANG LEADER, TOOL CRIB MANAGER
--- NOTE | 2018-02-11 14:05 | CASEMGMT ---
LYNDA MANCERA DISCHARGE FOLLOW-UP PHONE CALL: Discharge date: 02/10/18 LACE: 14 STRATA: 4 Adm DX: Complex Migraine LYNDA MANCERA called pt to see how she has been doing since she returned home from the hospital. Pt states she has been doing good. Pt denies having any questions about the discharge instructions or medications. Pt states her medications were deliivered to her room prior to discharge and that her appts were arranged for her as well. She states the dates/times of appts work well for her. Pt instructed to contact CM for any questions or concerns she may have. LYNDA MANCERA thanked pt for choosing [facility]. Sonja MCKEE RN, CM
== END 2018-02-10 14:45 | disposition home or self-care (01) | DRG 102 ==
LOC: ED 11:19 → PCU 12:17 → MS3 02-09 06:44
PROVIDERS: Admitting Provider Internal Medicine; Emergency Provider Emergency Medicine; Family Provider Family Medicine; PCP Family Medicine; Referring Provider Internal Medicine; Visit Provider Family Medicine
DX: G43.809 Other migraine, not intractable, without status migrainosus (principal); Q28.2 Arteriovenous malformation of cerebral vessels; G81.91 Hemiplegia, unspecified affecting right dominant side; F44.4 Conversion disorder with motor symptom or deficit; M06.9 Rheumatoid arthritis, unspecified; G40.909 Epilepsy, unspecified, not intractable, without status epilepticus; Z23 Encounter for immunization; E11.40 Type 2 diabetes mellitus with diabetic neuropathy, unspecified; E78.5 Hyperlipidemia, unspecified; E66.9 Obesity, unspecified; K21.9 Gastro-esophageal reflux disease without esophagitis; M79.7 Fibromyalgia; Z68.33 Body mass index [BMI] 33.0-33.9, adult; Z79.4 Long term (current) use of insulin
CPT/HCPCS: 36415; 70450; 70551; 71045; 80048; 82962; 84484; 85025; 85610; 85730; 93005; 97162; 97165; 97530; 99285; G0008; 90686; A4216; G8978; G8979; G8987; G8988

== ENCOUNTER 2018-03-13 19:30 | Emergency (ER) | payer MEDICARE, MEDICAID, SELFPAY ==
[2018-03-13 19:31] VITALS: BP 127/73; PULSE 72; RESP 16; TEMP 36; O2SAT 97; BMI 33.9
--- NOTE | 2018-03-13 19:50 | ED.VISSUMM ---
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 She had physical therapy and she was able to ambulate, about 2-1/2 hours ago she developed tingling in both feet, which progressed to decreased strength in both feet, now she cannot ambulate. Her sensory deficit is to bilateral knees. She has no respiratory symptoms. Physical Examination: Not appear in acute distress. Moist mucous membranes, no obvious facial deformity No C-spine tenderness supple neck. Regular rate and rhythm without any obvious murmurs Clear lungs bilaterally speaking in full sentences without any obvious respiratory distress Abdomen soft and nontender no guarding or rebound Skin does not show any obvious rashes or lesions, no trauma. She is able to barely move her toes bilaterally, her left lower extremity is quite weak she cannot hold her leg up against resistance. Her right lower extremity has weakness but she can hold her leg up for about 3-4 seconds. She has decreased sensation up until about the knee. She is areflexic in her Achilles and patellar reflexes. She has normal strength and sensation of the upper extremities. She has no other neurological symptoms. 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 Because of this and patient request, patient will be transferred to [facility] Disposition: Transfer r to outside institution Impression: Guillain- Kelly? syndrome This note was generated with [employer] dictation software. It may contain incorrect words, spelling, and punctuation that were not noted in review of the chart prior to signing ED Disposition - Plan for ED Patient: Chief Complaint: Numb/Ting Referrals: Chris Espinal MD [Primary Care Provider] -
--- NOTE | 2018-03-13 19:55 | ED.DCSUM_ITS ---
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 about 10 days ago. She had physical therapy and she was able to ambulate, about 2-1/2 hours ago she developed tingling in both feet, which progressed to decreased strength in both feet, now she cannot ambulate. Her sensory deficit is to bilateral knees. She has no respiratory symptoms. Physical Examination: Not appear in acute distress. Moist mucous membranes, no obvious facial deformity No C-spine tenderness supple neck. Regular rate and rhythm without any obvious murmurs Clear lungs bilaterally speaking in full sentences without any obvious respiratory distress Abdomen soft and nontender no guarding or rebound Skin does not show any obvious rashes or lesions, no trauma. She is able to barely move her toes bilaterally, her left lower extremity is quite weak she cannot hold her leg up against resistance. Her right lower ext remity has weakness but she can hold her leg up for about 3-4 seconds. She has decreased sensation up until about the knee. She is areflexic in her Achilles and patellar reflexes. She has normal strength and sensation of the upper extremities. She has no other neurological symptoms. 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 Because of this and patient request, patient will be transferred to 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 It may contain incorrect words, spelling, and punctuation that were not noted in review of the chart prior to signing ED Disposition - Plan for ED Patient: Chief Complaint: Numb/Ting Referrals: Chris Espinal MD [Primary Care Provider] -
[2018-03-13 20:08] LABS: Absolute Lymphocyte Count 3.41 X10^3/ul (0.83-4.51); Absolute Neutrophil Count 4.6 X10^3/uL (2.0-7.7); Basophil# 0.06 X10^3/uL; Basophil% 0.6 % (0-1); Eosinophil# 0.72 X10^3/uL; Eosinophils% 7.7 % (0-5); Hematocrit 41.7 % (37-47); Hemoglobin 13.6 g/dl (12.0-15.0); Lymphocyte # 3.41 X10^3/ul (4.0); Lymphocyte % 36.6 % (19-41); Mean Corp Hgb Conc 32.6 g/gl (32-36); Mean Corpuscular Hgb 26.8 pg (27.0-32.0); Mean Corpuscular Volume 82.2 fL (81-99); Mean Platelet Vol. 10.4 fl (6.2-12.0); Monocyte# 0.48 X10^3/uL; Monocyte% 5.2 % (0-10); Neutrophil # 4.61 X10^3/uL (2.7-7.7); Neutrophil % 49.6 % (47-70); Platelet Count 273 K/mm3 (150-450); RBC Distribution Width CV 14.8 % (11.6-14.6); RBC Distribution Width SD 44.4 fl (35.1-43.9); Red Blood Count 5.07 M/mm3 (4.2-5.4); White Blood Count 9.3 K/mm3 (4.4-11.0)
[2018-03-13 20:13] LABS: POSITIVE COUNT NO; POSITIVE DIFFERENTIAL NO; POSITIVE MORPHOLOGY NO
[2018-03-13 20:19] LABS: ALB/GLOB Ratio 1.1 RATIO (0.9-2.4); AST(SGOT) 15 U/L (15-37); Alanine Aminotransfer ALT/SGPT 33 U/L (13-56); Albumin, Serum 3.8 g/dL (3.2-5.0); Alkaline Phosphatase 127 U/L (45-117); Anion Gap 10 (5-15); BUN 13 mg/dL (7-18); Calcium,Total 8.6 mg/dL (8.5-10.1); Chloride 106 mmol/L (98-107); EST Glomerular Filtration Rate 67 mL/min (>60); Est Glom Filt Rate - Afr Amer 81 mL/min (>60); Estimated Creatinine Clearance 72.81 ml/min; Globulin 3.5 g/dL (2.2-4.2); Glucose 251 mg/dL (74-106); Potassium 3.5 mmol/L (3.5-5.1); Protein, Total 7.3 g/dL (6.4-8.2); Sodium Level 138 mmol/L (136-145)
[2018-03-13 20:25] VITALS: BP 118/70; PULSE 75; RESP 17; O2SAT 98
[2018-03-13 22:01] VITALS: BP 111/88; PULSE 61; RESP 12; O2SAT 98
== END 2018-03-13 22:34 | disposition short-term general hospital (02) ==
PROVIDERS: Emergency Provider Emergency Medicine; Family Provider Family Medicine; PCP Family Medicine
DX: G61.0 Guillain-Barre syndrome (principal); E11.9 Type 2 diabetes mellitus without complications; Z79.4 Long term (current) use of insulin
CPT/HCPCS: 80053; 85025; 99283; A4216

== ENCOUNTER 2018-07-11 09:14 | Emergency (ER) | payer MEDICARE, MEDICAID, SELFPAY ==
[2018-07-11 09:16] VITALS: BP 147/89; PULSE 72; RESP 15; TEMP 36.7; O2SAT 98; BMI 32.1
--- NOTE | 2018-07-11 09:40 | ED.VISSUMM ---
- ER Visit Summary Date of Service: 07/11/18 Chief Complaint: Tingling in hands and feet History of Present Illness: The patient is a 37 F 3 of insulin-dependent diabetes, AVM, fibromyalgia and prior history of [place] Kelly?. Patient states yesterday morning she just developed tingling in her feet that seems to be coming up to her mid calves. And similarly today in her hands. Denies any fever or chills. She did have GI symptoms a week ago with nausea vomiting diarrhea that is since resolved. She says she has had symptoms like this before because the Topamax but that her extremities now just feel heavy. Physical Examination: Well-appearing female. Vital signs are stable afebrile. She is in no distress. H EENT exam unremarkable. Neck nontender no lymphadenopathy. Lungs clear to auscultation bilaterally. Heart regular rate and rhythm no murmur rate 70. Abdomen obese but soft nontender normal bowel sounds no peritoneal signs. Extremities moving all 4. She has subjective tingling in her feet and hands. She has strong radial and DP pulses. 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 Neurologically she is awake and alert. Test Results: CBC normal white count of 5. Hemoglobin 13. BMP electrolytes unremarkable. Normal gap and creatinine. Emergency Department Course and Treatment: Patient with tinglings in her hands and feet. She will be observed here and repeat exams. I will check her chemistries to ensure this notes likely abnormalities. Repeat exam patient is doing well at 11:12 AM. No change in exam. She was able to stand up and walk without any difficulty. Currently she has no significant weakness and there is no current signs of [place] Kelly?. Treatment Plan: Follow-up with her primary care physician if not improving. Return if worse. Disposition: Discharge Impression: Subjective tingling of her hands and feet of uncertain etiology History of insulin-dependent diabetes and fibromyalgia This note was generated with [employer] dictation software. It may contain incorrect words, spelling, and punctuation that were not noted in review of the chart prior to signing ED Disposition - Plan for ED Patient: Referrals: Chris Espinal MD [Primary Care Provider] -
--- NOTE | 2018-07-11 09:43 | ED.DCSUM_ITS ---
- ER Visit Summary Date of Service: 07/11/18 Chief Complaint: Tingling in hands and feet History of Present Illness: The patient is a 37 F 3 of insulin-dependent diabetes, AVM, fibromyalgia and prior history of [place] Kelly?. Patient states yesterday morning she just developed tingling in her feet that seems to be coming up to her mid calves. And similarly today in her hands. Denies any fever or chills. She did have GI symptoms a week ago with nausea vomiting diarrhea that is since resolved. She says she has had symptoms like this before because the Topamax but that her extremities now just feel heavy. Physical Examination: Well-appearing female. Vital signs are stable afebrile. She is in no distress. H EENT exam unremarkable. Neck nontender no lymphadenopathy. Lungs clear to auscultation bilaterally. Heart regular rate and rhythm no murmur rate 70. Abdomen obese but soft nontender normal bowel sounds no peritoneal signs. Extremities moving all 4. She has subjective tingling in her feet and hands. She has strong radial and DP pulses. 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 Neurologically she is awake and alert. Test Results: CBC normal white count of 5. Hemoglobin 13. BMP electrolytes unremarkable. Normal gap and creatinine. Emergency Department Course and Treatment: Patient with tinglings in her hands and feet. She will be observed here and repeat exams. I will check her chemistries to ensure this notes likely abnormalities. Repeat exam patient is doing well at 11:12 AM. No change in exam. She was able to stand up and walk without any difficulty. Currently she has no significant weakness and there is no current signs of [place] Kelly?. Treatment Plan: Follow-up with her primary care physician if not improving. Return if worse. Disposition: Discharge Impression: Subjective tingling of her hands and feet of uncertain etiology History of insulin-dependent diabetes and fibromyalgia This note was generated with [employer] dictation software. It may contain incorrect words, spelling, and punctuation that were not noted in review of the chart prior to signing ED Disposition - Plan for ED Patient: Referrals: Chris Espinal MD [Primary Care Provider] -
[2018-07-11 10:36] LABS: Absolute Lymphocyte Count 2.01 X10^3/ul (0.83-4.51); Absolute Neutrophil Count 2.9 X10^3/uL (2.0-7.7); Basophil# 0.05 X10^3/uL; Basophil% 0.9 % (0-1); Eosinophil# 0.47 X10^3/uL; Eosinophils% 8.1 % (0-5); Hemoglobin 13.7 g/dl (12.0-15.0); Lymphocyte # 2.01 X10^3/ul (4.0); Lymphocyte % 34.5 % (19-41); Mean Corp Hgb Conc 32.6 g/gl (32-36); Mean Corpuscular Hgb 27.2 pg (27.0-32.0); Mean Corpuscular Volume 83.5 fL (81-99); Mean Platelet Vol. 10.1 fl (6.2-12.0); Monocyte# 0.38 X10^3/uL; Monocyte% 6.5 % (0-10); Neutrophil % 49.8 % (47-70); Platelet Count 260 K/mm3 (150-450); RBC Distribution Width SD 45.7 fl (35.1-43.9); Red Blood Count 5.03 M/mm3 (4.2-5.4); White Blood Count 5.8 K/mm3 (4.4-11.0)
[2018-07-11 10:37] LABS: POSITIVE COUNT NO; POSITIVE DIFFERENTIAL NO; POSITIVE MORPHOLOGY NO
[2018-07-11 10:45] LABS: Anion Gap 10 (5-15); BUN 18 mg/dL (7-18); BUN/Creat Ratio 21.3 RATIO (10-20); Calcium,Total 8.5 mg/dL (8.5-10.1); Chloride 108 mmol/L (98-107); Creatinine, Serum 0.85 mg/dL (0.55-1.02); EST Glomerular Filtration Rate 80 mL/min (>60); Est Glom Filt Rate - Afr Amer 97 mL/min (>60); Estimated Creatinine Clearance 85.66 ml/min; Glucose 187 mg/dL (74-106); Potassium 3.9 mmol/L (3.5-5.1); Sodium Level 140 mmol/L (136-145)
[2018-07-11 11:14] VITALS: BP 138/78; BP 138/80; PULSE 80; RESP 14; O2SAT 98
--- NOTE | 2018-07-11 11:14 | ED.DEP ---
ED Disposition - Plan for ED Patient: Disposition: Home or Assisted Living Referrals: Chris Espinal MD [Primary Care Provider] - 1 Week if not improving Additional Instructions: Your labs and exam are unremarkable. Follow-up your primary care physician if not improving or return if worse.
== END 2018-07-11 11:28 | disposition home or self-care (01) ==
PROVIDERS: Emergency Provider Emergency Medicine; Family Provider Family Medicine; PCP Family Medicine
DX: R20.2 Paresthesia of skin (principal); M79.7 Fibromyalgia; E11.9 Type 2 diabetes mellitus without complications; Z79.4 Long term (current) use of insulin; R11.2 Nausea with vomiting, unspecified; R19.7 Diarrhea, unspecified; Q27.30 Arteriovenous malformation, site unspecified
CPT/HCPCS: 80048; 85025; 99285; A4216

== ENCOUNTER 2018-08-01 11:31 | Emergency (ER) | payer MEDICARE, MEDICAID, SELFPAY ==
[2018-08-01 11:33] VITALS: BP 145/89; PULSE 89; RESP 16; TEMP 37.2; O2SAT 95; BMI 32.4
[2018-08-01 12:27] VITALS: RESP 18
--- NOTE | 2018-08-01 13:09 | ED.VIS.GEN ---
History of Present Illness Chief Complaint: Back Informant: Patient Onset: Today Context: - - woke up w/ sx, worse at work Timing: Continuous Quality: ache Location: mid-low back. radiates into both thighs. Current Severity: Severe Maximum Severity: Moderate Worsened by: nothing. denies worse w/ movements/positions. Relieved by: nothing. tried no meds. Associated Symptoms: tingling in both thighs. no radiation below knees. no perineal anesthesia. Narrative: Legs feel somewhat weak. Able to walk. She states although it is 1 PM she has not urinated or had a bowel movement at all today. States she has been drinking fluids. Does not feel the need to go, has no retention symptoms. Denies any abdominal discomfort. Denies being that she knows of. Denies any injury or overuse yesterday. No recent diarrheal illness. Denies IV drug use. Prior similar symptoms: No Recent Illness/Hospitalization: No - Past Medical History (1) AVM (arteriovenous malformation) brain Status: Chronic (2) HLD (hyperlipidemia) Status: Chronic (3) Seizure disorder Status: Chronic (4) Type II diabetes mellitus Status: Chronic Past Medical History - Allergies and Home Meds Allergies/Adverse Reactions: Allergies Sulfa (Sulfonamide Antibiotics) Allergy (Intermediate, Verified 08/01/18 11:33) Hives Iodinated Contrast- Oral and IV Dye Allergy (Mild, Verified 08/01/18 11:33) Rash uncontrollable itching nortriptyline Adverse Reaction (Severe, Verified 08/01/18 11:33) Other lowered blood sugar, caused irregular hear rythym metformin Adverse Reaction (Intermediate, Verified 08/01/18 11:33) Diarrhea morphine Adverse Reaction (Verified 08/01/18 11:33) Itching Primary Care Physician: Chris Espinal MD [Primary Care Provider] - Surgical History: cholecystectomy, - - Embolization of vein in the uterus Smoking Status: Former smoker Drugs: None - Family History Maternal Family History: Reports: - - Rheumatoid arthritis Paternal Family History: Reports: No pertinent history Review of Systems General: Denies: Chills, Fever Eyes: Denies: Visual changes - bilaterally, Diplopia ENT: Denies: Rhinorrhea, Sore throat Cardiovascular: Denies: Chest pain, Palpitations Respiratory: Denies: Dyspnea, Cough, Dyspnea on exertion Gastrointestinal: Denies: Abdominal pain, Nausea, Vomiting, Diarrhea, Melena, Hematochezia Genitourinary: Denies: Dysuria, Hematuria, Frequency Musculoskeletal: Reports: Back pain, Extremity Pain Skin: Denies: Rash, Wounds Neurological: Reports: Weakness, Parasthesia. Denies: Headache Physical Exam Vital Signs/Narrative: Vital Signs Temp Pulse Resp BP Pulse Ox 08/01/18 12:27 18 08/01/18 11:33 99 F 89 16 145/89 H 95 Inital Vital Signs reviewed: Yes General: Well nourished, Well developed, No Acute Distress - well-appearing, sitting comfortably using cell phone. Head: Normocephalic, Atraumatic Eyes: Perrl, EOMI ENT: Moist mucous membranes, No rhinorrhea Neck: Supple, Nontender Cardiovascular: Regular rate, Regular rhythm, No murmurs Respiratory: No distress, CTA bilaterally, Chest nontender Abdomen: Soft, Nontender, Nondistended, Normal bowel sounds Back: Normal Inspection, Spinal tenderness - lower lumbar midline. no paraspinal tenderness. no rash noted. no step off. rest of spine nontender.. Negative for: CVA tenderness Extremities: Nontender, No edema. Negative for: Calf Tenderness Skin: Normal color, No rash Neurological: Alert, Oriented x3, Cranial nerves II-XII grossly intact, Normal Strength, Normal Sensation, Normal DTR, - - downgoing toes bilat Psychological: Normal affect, Normal Mood Diagnostic/Tx/Re-eval Impressions Lumbar Spine X-Ray 08/01/18 14:21 IMPRESSION: Degenerative changes of the spine, as detailed above. Electronically Signed: Venancio Peter, at 15:40 EDT , Service support , 08/01/18 14:21 Lumbar Spine 2 or 3 Views [RAD] Stat Laboratory Results 08/01/18 08/01/18 08/01/18 13:45 13:45 13:45 WBC 6.2 RBC 5.14 Hgb 14.0 Hct 42.2 MCV 82.1 MCH 27.2 MCHC 33.2 RDW 15.0 H RDW Differential 44.8 H Plt Count 261 MPV 10.2 Immature Gran % (Auto) 0.300 Neut % (Auto) 52.9 Lymph % (Auto) 29.1 [place] % (Auto) 7.5 Eos % (Auto) 9.4 H Baso % (Auto) 0.8 Absolute Neuts (auto) 3.3 Absolute Lymphs (auto) 1.79 Total Counted Not Reportable Sodium 132 L Potassium 4.8 Chloride 104 Carbon Dioxide 24.0 Anion Gap 4 L BUN 12 Creatinine 0.93 Estim Creat Clear Calc 78.29 Est GFR (MDRD) Af Amer 87 Est GFR (MDRD) Non-Af 72 BUN/Creatinine Ratio 12.9 Glucose 316 H Calcium 8.6 Urine Color Urine Clarity Urine pH Ur Specific [place] Urine Protein Urine Glucose (UA) Urine Ketones Urine Occult Blood Urine Nitrite Urine Bilirubin Urine Urobilinogen Ur Leukocyte Esterase Urine RBC Urine WBC Ur Squamous Epith Cells Urine Bacteria Urine Mucus Urine Test Negative 08/01/18 13:45 WBC RBC Hgb Hct MCV MCH MCHC RDW RDW Differential Plt Count MPV Immature Gran % (Auto) Neut % (Auto) Lymph % (Auto) [place] % (Auto) Eos % (Auto) Baso % (Auto) Absolute Neuts (auto) Absolute Lymphs (auto) Total Counted Sodium Potassium Chloride Carbon Dioxide Anion Gap BUN Creatinine Estim Creat Clear Calc Est GFR (MDRD) Af Amer Est GFR (MDRD) Non-Af BUN/Creatinine Ratio Glucose Calcium Urine Color Yellow Urine Clarity Sl. Cloudy Urine pH 6.0 Ur Specific [place] 1.020 Urine Protein Negative Urine Glucose (UA) 1000 H Urine Ketones Negative Urine Occult Blood Negative Urine Nitrite Negative Urine Bilirubin Negative Urine Urobilinogen Normal Ur Leukocyte Esterase Negative Urine RBC 0 SEEN Urine WBC 0 SEEN Ur Squamous Epith Cells 0-5 SEEN Urine Bacteria 0 SEEN Urine Mucus 0 SEEN Urine Test - Medical Decision Making Patient had missed a menstrual cycle, so we had to await a urine sample to rule out prior to obtaining lumbosacral spine x-rays. Urgency is negative, urinalysis normal, her labs are normal including blood counts with a white blood count of 6.0, and chemistries including renal function. We obtained back x-rays, they show some arthritis in her lumbosacral spine, but no acute abnormalities, and after Toradol she is feeling much better. I reassured her. My suspicion is that this is muscular skeletal back pain given the exam. I advised supportive care with a prescription for Naprosyn and close out patient follow-up, she is comfortable with that plan. ED Disposition - Plan for ED Patient: Disposition: Home or Assisted Living Diagnosis: Acute low back pain Instructions: ED Neck Back Pain General Prescriptions: Naproxen [Naprosyn] 500 mg PO BID PRN PRN #20 tablet PRN Reason: Pain Referrals: Chris Espinal MD [Primary Care Provider] - 1 Week if not improving
[2018-08-01 13:55] LABS: Bacteria 0 SEEN /hpf (None Seen); Mucous, Urine 0 SEEN /hpf (<or=2+); Red Blood Cells-Urine 0 SEEN /hpf (0-5); White Blood Cells 0 SEEN /hpf (0-5)
[2018-08-01 14:01] LABS: Color, Urine Yellow (Yellow); Glucose, Dipstick 1000 mg/dl (Normal); Ketone-Dipstick Negative (Negative); Leukocyte Esterase-Dipstick Negative /ul (Negative); Nitrite-Dipstick Negative (Negative); Occult Blood-Urine Negative /ul (Negative); Protein-Dipstick Negative (Negative); Urine Bilirubin Dipstick Negative (Negative); Urine Clarity Sl. Cloudy (Clear); Urine Urobilinogen Normal (Normal)
[2018-08-01 14:02] LABS: Internal QC Validated? YES +Cl - CLEAR BKGD; Pregnancy, Urine Negative Negative
[2018-08-01 14:12] LABS: Squamous Epithelial Cells - UA 0-5 SEEN /hpf (5-10)
[2018-08-01 14:14] LABS: Absolute Lymphocyte Count 1.79 X10^3/ul (0.83-4.51); Absolute Neutrophil Count 3.3 X10^3/uL (2.0-7.7); Basophil# 0.05 X10^3/uL; Basophil% 0.8 % (0-1); Eosinophil# 0.58 X10^3/uL; Eosinophils% 9.4 % (0-5); Hematocrit 42.2 % (37-47); Lymphocyte # 1.79 X10^3/ul (4.0); Lymphocyte % 29.1 % (19-41); Mean Corp Hgb Conc 33.2 g/gl (32-36); Mean Corpuscular Hgb 27.2 pg (27.0-32.0); Mean Corpuscular Volume 82.1 fL (81-99); Mean Platelet Vol. 10.2 fl (6.2-12.0); Monocyte# 0.46 X10^3/uL; Monocyte% 7.5 % (0-10); Neutrophil # 3.26 X10^3/uL (2.7-7.7); Neutrophil % 52.9 % (47-70); Platelet Count 261 K/mm3 (150-450); RBC Distribution Width SD 44.8 fl (35.1-43.9); Red Blood Count 5.14 M/mm3 (4.2-5.4); White Blood Count 6.2 K/mm3 (4.4-11.0)
--- NOTE | 2018-08-01 14:21 | RAD_ITS ---
STUDY: X-RAY - LUMBAR SPINE REASON FOR EXAM: Female, 37 years old. 2 day history of pain. TECHNIQUE: 3 view(s) of the lumbar spine were obtained. COMPARISON: None FINDINGS: Normal lumbar lordosis. There is no substantial scoliosis. There is a normal alignment of the vertebrae. There is multilevel endplate spondylosis of the lumbar vertebrae. Normal disc space heights. Partial sacralization of the L5 vertebrae. Embolization clips are seen overlying the transverse process of the L3 vertebrae on the left side as well as in the left hemipelvis. The patient is status post cholecystectomy. RAD/Lumbar Spine 2 or 3 Views IMPRESSION: Degenerative changes of the spine, as detailed above. Electronically Signed: Venancio Peter, at 15:40 EDT , Service support ,
[2018-08-01 14:23] LABS: Anion Gap 4 (5-15); BUN 12 mg/dL (7-18); BUN/Creat Ratio 12.9 RATIO (10-20); Calcium,Total 8.6 mg/dL (8.5-10.1); Chloride 104 mmol/L (98-107); Creatinine, Serum 0.93 mg/dL (0.55-1.02); EST Glomerular Filtration Rate 72 mL/min (>60); Est Glom Filt Rate - Afr Amer 87 mL/min (>60); Estimated Creatinine Clearance 78.29 ml/min; Glucose 316 mg/dL (74-106); Potassium 4.8 mmol/L (3.5-5.1); Sodium Level 132 mmol/L (136-145)
[2018-08-01 14:26] LABS: POSITIVE COUNT NO; POSITIVE DIFFERENTIAL NO; POSITIVE MORPHOLOGY NO
[2018-08-01] MEDS: Ketorolac 30 MG/ML Syringe IV (15:29)
[2018-08-01 16:05] VITALS: PULSE 70; PULSE 80; RESP 16; O2SAT 100
== END 2018-08-01 16:06 | disposition home or self-care (01) ==
PROVIDERS: Emergency Provider Emergency Medicine; Family Provider Family Medicine; PCP Family Medicine
DX: M54.5 Low back pain (principal); Z87.891 Personal history of nicotine dependence; Z90.49 Acquired absence of other specified parts of digestive tract; E11.9 Type 2 diabetes mellitus without complications; E78.5 Hyperlipidemia, unspecified; Q28.2 Arteriovenous malformation of cerebral vessels; G40.909 Epilepsy, unspecified, not intractable, without status epilepticus
CPT/HCPCS: 72100; 80048; 81001; 81025; 85025; 96374; 99283; A4216

== ENCOUNTER 2018-08-14 10:27 | Observation (INO) | payer MEDICARE, MEDICAID, SELFPAY ==
[2018-08-14] VITALS (13 sets, daily range): BP systolic 101–175; BP diastolic 68–121; PULSE 68–93; RESP 13–18; TEMP 36.8–37.1; O2SAT 94–99; BMI 32.7; BMI 32.1
[2018-08-14 10:36] LABS: Bedside Glucose 313 mg/dL (70-110)
--- NOTE | 2018-08-14 10:38 | CT_ITS ---
STUDY: CT BRAIN WITHOUT CONTRAST REASON FOR EXAM: Female, 37 years old. Right-sided weakness and memory loss since 10:00 this morning RADIATION DOSAGE (If Supplied By Facility): CTDIvol = ( 44.99 ) mGy, DLP = ( 745.49 ) mGycm TECHNIQUE: Transaxial CT imaging of the brain was performed without administration of intravenous contrast material. Individualized dose optimization techniques were used for this CT. COMPARISON: 02/08/2018 FINDINGS: Normal soft tissue structures. Normal calvarium. 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 The ventricular system is unchanged. Normal white matter tracts of the cerebral hemispheres. Normal basal ganglia and thalami. Normal brainstem. Normal cerebellum. There is no intracranial hemorrhage. There are no findings of an acute ischemic infarction. Normal visualized paranasal sinuses. CT/Brain/Head without Contrast IMPRESSION: 1. No acute intracranial hemorrhage or mass effect. 2. Partial agenesis of the corpus callosum. N.B. : The above information has been verbally conveyed by Kirit Shaw MD to Macho Magallanes MD, on 08/14/2018 10:56:28 (ET). Electronically Signed: Kirit Shaw MD at 10:58 EDT , Service support ,
--- NOTE | 2018-08-14 10:39 | RAD_ITS ---
STUDY: X-RAY CHEST REASON FOR EXAM: Female, 37 years old. Right-sided weakness and memory loss TECHNIQUE: AP COMPARISON: 02/08/2018 FINDINGS: EKG leads project over the chest. The lungs are clear and expanded. There is no demonstrated pleural abnormality. Normal size heart. Normal mediastinum and jose daniel. Normal visualized pulmonary arteries. Normal visualized aortic arch and descending thoracic aorta. No acute bony process. There is no demonstrated abnormality of the visualized soft tissue structures of the upper abdomen. RAD/Chest 1 View (Portable) IMPRESSION: Nonacute portable x-ray examination of the chest. Electronically Signed: Kirit Shaw MD at 11:16 EDT , Service support ,
--- NOTE | 2018-08-14 10:39 | EKG12_ITS ---
Test Reason : NEURO Blood Pressure : / mmHG Vent. Rate : 081 BPM Atrial Rate : 081 BPM P-R Int : 128 ms QRS Dur : 074 ms QT Int : 380 ms P-R-T Axes : 040 010 012 degrees QTc Int : 441 ms Normal sinus rhythm Normal ECG Confirmed by ANIKA ELIZONDO, STACI ([id number]), desk editor LAURA STRAUSS ([id number]) on 08/16/2018 7:58:55 AM Referred By: Confirmed By:STACI DONALDSON MD
[2018-08-14 10:54] LABS: Absolute Lymphocyte Count 2.43 X10^3/ul (0.83-4.51); Absolute Neutrophil Count 3.6 X10^3/uL (2.0-7.7); Basophil# 0.07 X10^3/uL; Eosinophil# 0.64 X10^3/uL; Eosinophils% 8.8 % (0-5); Hematocrit 45.8 % (37-47); Hemoglobin 15.7 g/dl (12.0-15.0); Lymphocyte # 2.43 X10^3/ul (4.0); Lymphocyte % 33.4 % (19-41); Mean Corp Hgb Conc 34.3 g/gl (32-36); Mean Corpuscular Volume 78.8 fL (81-99); Mean Platelet Vol. 10.8 fl (6.2-12.0); Monocyte# 0.45 X10^3/uL; Monocyte% 6.2 % (0-10); Neutrophil # 3.62 X10^3/uL (2.7-7.7); Neutrophil % 49.8 % (47-70); Platelet Count 277 K/mm3 (150-450); RBC Distribution Width CV 14.3 % (11.6-14.6); RBC Distribution Width SD 40.9 fl (35.1-43.9); Red Blood Count 5.81 M/mm3 (4.2-5.4); White Blood Count 7.3 K/mm3 (4.4-11.0)
[2018-08-14] MEDS: 0.9% Normal Saline 1,000 ML 999 ML IV (10:54)
[2018-08-14 10:56] LABS: POSITIVE COUNT NO; POSITIVE DIFFERENTIAL NO; POSITIVE MORPHOLOGY NO
--- NOTE | 2018-08-14 11:00 | ED.DCSUM_ITS ---
- ER Visit Summary Date of Service: 08/14/18 Chief Complaint: [] Sharp head pain right arm and leg weakness History of Present Illness: The patient is a 37 F [] patient indicates that she suddenly had a severe sharp head pain that debilitated her and since then she has had right arm and leg weakness, she is a very difficult historian and that she is not very verbal she does not provide specific details, but we understand that she was at home when she suddenly for unspecified no obvious reasons began having sharp head pain then she indicates she had right arm and leg weakness where she could not walk, she then drove in her car to the emergency department and walked and presented to triage and she was walked to t bed #2. She was unable to provide additional history we reviewed the computer she reportedly has a history of TIA 2006 seizure disorder and diabetes Physical Examination: [] Pressure is 169/129 General, no distress resting comfortably HEENT is generally unremarkable, she is speaking in a very slow reserved fashion her airways intact The neck is supple no adenopathy Cardiovascular, regular rate and rhythm Lungs, clear bilateral Abdomen, soft nontender Extremities, no clubbing cyanosis or edema Neurologic, awake alert answering questions, in a slow reserve fashion, she 1 asked to hold up her right arm the arm drops directly to the bed, similarly the leg, on the right, the left upper and lower extremity unremarkable her cranial nerves are intact we cannot do visual confrontation field testing because she will not cooperate she has no obvious visual field defects her airway cranial nerves are obviously normal her NIH 8 would be based on the right upper and lower extremity drop, Her pulses are symmetric there is no signs of trauma her blood pressure is noted to be 169/129 and she has no known history of hypertension All the above she went immediately for stroke A workup we will discussed the case with neurology Patient could not obtain head CTA and neck related to allergy to contrast dye plain CT head was unremarkable her EKG and labs are unremarkable her blood pressures improved without therapy to 150/100, we spoke with neurology given all the above given the constellation of her symptoms given that the history is rather inconsistent and that she indicates she was unable to move her leg but she was able to walk into the hospital neurology recommended admission and further management per protocol no other acute interventions at this time, on reevaluation she does appear to be moving the right upper arm and leg at times, we did speak with hospitalist service though by to see her shortly Test Results: [] Emergency Department Course and Treatment: [] Treatment Plan: [] Disposition: [] Admit stable Impression: [] Right upper and lower extremity weakness possible stroke, hypertension, history of diabetes prior TIA seizure disorder This note was generated with [employer] software. It may contain incorrect words, spelling, and punctuation that were not noted in review of the chart prior to signing ED Disposition - Plan for ED Patient: Referrals: Chris Espinal MD [Primary Care Provider] -
[2018-08-14 11:02] LABS: Anion Gap 8 (5-15); BUN 19 mg/dL (7-18); BUN/Creat Ratio 19.1 RATIO (10-20); Calcium,Total 9.1 mg/dL (8.5-10.1); Chloride 100 mmol/L (98-107); Creatinine, Serum 0.99 mg/dL (0.55-1.02); EST Glomerular Filtration Rate 67 mL/min (>60); Est Glom Filt Rate - Afr Amer 81 mL/min (>60); Estimated Creatinine Clearance 73.54 ml/min; Glucose 293 mg/dL (74-106); Potassium 4.3 mmol/L (3.5-5.1); Sodium Level 132 mmol/L (136-145)
--- NOTE | 2018-08-14 13:05 | HP.PCM_ITS ---
Problem List (1) AVM (arteriovenous malformation) brain Status: Chronic (2) Seizure disorder Status: Chronic (3) HLD (hyperlipidemia) Status: Chronic (4) Right sided weakness Status: Acute (5) Type II diabetes mellitus Status: Chronic History of Present Illness Date of Admission: 08/14/18 Chief Complaint: Right-sided weakness The patient is a 37 year old F with PMH as below who presents to the hospital with 1/2-hour onset of right-sided weakness she states that she is unable to walk though she was able to drive herself to the hospital and walk into the ER. She has a history of complex migraines versus conversion disorders as well as a seizure disorder that she sees neurology for. Her symptoms started at 930 decreased and she presented to the ER around 10:00. The ED physician initially obtain an NIH of 8, but he discussed the case with neurology who did not feel that this was likely a stroke given her past medical history and her age though did recommend that we proceed with an MRI in the morning. She has had a previous MRI in February 2018 for stroke, difficulty swallowing and right-sided weakness at that time. That MRI was negative for stroke and only stroke showed dysgenesis of the corpus callosum. She also had a an MRI in November 2017 once again for right-sided weakness which was negative for stroke. Will admit to PCU for monitoring. Her blood sugar on admission was 293 and her hemoglobin was 15.7 indicating possible dehydration. Past Medical History Past Medical History (Chronic Problems): Chronic Problems AVM (arteriovenous malformation) brain (Chronic) Seizure disorder (Chronic) Obesity (Chronic) HLD (hyperlipidemia) (Chronic) Type II diabetes mellitus (Chronic) Allergies Sulfa (Sulfonamide Antibiotics) Allergy (Intermediate, Verified 08/14/18 10:50) Hives Iodinated Contrast- Oral and IV Dye Allergy (Mild, Verified 08/14/18 10:50) Rash uncontrollable itching nortriptyline Adverse Reaction (Severe, Verified 08/14/18 10:50) Other lowered blood sugar, caused irregular hear rythym metformin Adverse Reaction (Intermediate, Verified 08/14/18 10:50) Diarrhea morphine Adverse Reaction (Verified 08/14/18 10:50) Itching Home Medications: Ambulatory Orders Medication Instructions Recorded Liraglutide [Victoza 2-Ben] 1.8 mg SQ DAILY 09/20/15 Topiramate [Topamax] 100 mg PO QHS 09/20/15 Topiramate [Topamax] 50 mg PO BREAKFAST 07/02/16 Gabapentin [Neurontin] 300 mg PO TIDCM 05/10/17 traMADol [Ultram] 100 mg PO BID 05/10/17 Naproxen [Naprosyn] 500 mg PO BID PRN PRN #20 tablet 08/01/18 Acetaminophen with Codeine 1 tab PO Q6H PRN PRN 08/14/18 [Acetaminophen-Cod #3 Tablet] Surgical History: cholecystectomy, hysterectomy, - - Embolization of vein in the uterus Smoking Status: Never smoker Alcohol: None Drugs: None - *Family History Maternal History Items: - - Rheumatoid arthritis Paternal History Items: No pertinent history Review of Systems Constitutional: Denies: Chills, Fever, Weight Change HEENT: Denies: Head Aches, Sinus Congestion, Sinus Drainage Cardiovascular: Denies: Chest Pain, Palpitations Respiratory: Denies: Cough, Shortness of breath at rest, Sputum production Gastrointestinal: Denies: Abdominal Pain, Nausea, Vomiting Genitourinary: Denies: Dysuria Musculoskeletal: Denies: Joint Pain, Joint Tenderness Skin: Denies: Rash, Wounds Neurological: Reports: Focal weakness. Denies: Numbness, Tingling Psychiatric: Denies: Anxiety, Depression Hematologic/ Lymphatic: Denies: Easy Bruising, Easy Bleeding VTE Information - Inpt Only VTE Present on Admission: No - Physical Exam General: Alert, Oriented x3, Cooperative, No apparent distress HEENT: Atraumatic, PERRLA, EOMI, Normocephalic Oral: Moist Mucosa Neck: Supple, No JVD, Trachea Midline Lungs: Clear to auscultation, Normal air movement, No rhonchi, No wheeze, No rales Cardiovascular: Regular rate, Regular Rhythm, Normal S1, Normal S2, No murmurs Abdomen: Soft, Non Tender, Non-Distended, No Hepato-splenomegaly Extremities: No edema, Capillary Refill Less than 3 Seconds Skin: No rashes, No breakdown Neurological: Cranial nerves II-XII grossly intact, - - 0 out of 5 strength in her right upper extremity and 2 out of 5 on her right lower extremity Psych/Mental Status: Flat Affect Vital Signs Temp Pulse Resp BP Pulse Ox 98.8 F 90 16 125/92 H 96 08/14/18 10:28 08/14/18 12:06 08/14/18 12:06 08/14/18 12:06 08/14/18 12:06 Oxygen Delivery Method Room Air Weight: 202 lb 13.204 oz Body Mass Index (BMI) 32.7 Finger Stick Blood Glucose 313 Laboratory Tests Past 24 Hrs 08/14/18 08/14/18 10:30 10:30 WBC 7.3 RBC 5.81 H Hgb 15.7 H Hct 45.8 MCV 78.8 L MCH 27.0 MCHC 34.3 RDW 14.3 RDW Differential 40.9 Plt Count 277 MPV 10.8 Immature Gran % (Auto) 0.800 Neut % (Auto) 49.8 Lymph % (Auto) 33.4 [place] % (Auto) 6.2 Eos % (Auto) 8.8 H Baso % (Auto) 1.0 Absolute Neuts (auto) 3.6 Absolute Lymphs (auto) 2.43 Total Counted Not Reportable Sodium 132 L Potassium 4.3 Chloride 100 Carbon Dioxide 24.0 Anion Gap 8 BUN 19 H Creatinine 0.99 Estim Creat Clear Calc 73.54 Est GFR (MDRD) Af Amer 81 Est GFR (MDRD) Non-Af 67 BUN/Creatinine Ratio 19.1 Glucose 293 H Calcium 9.1 POC Glucose 08/14/18 10:29 POC Glucose 313 H Assessment/Plan All Active Problems Upper GI bleed (Acute) Right sided weakness (Acute) 1. Rule out CVA versus complex migraine/seizure disorder -On admission in the ER she had an NIH of 8, the case was discussed with neurology who is familiar with the patient who stated to just proceed with a normal neurologic check workup, no TPA -Obtain an MRI of the brain as well as carotid Doppler since she has an allergy to contrast -Echo in the morning -Apparently she has had right-sided weakness multiple times with normal MRIs -She did have a headache earlier today prior to this episode -Denies having a seizure -We will continue with her home seizure medications of Topamax 2. DM 2 -Blood sugars are 293, she is supposed to be on Victoza as an outpatient -Hold Victoza and placed on long-acting and sliding scale insulin. DVT: Lovenox Code Visit OBSV E&M: 13211 Initial observation care L3
--- NOTE | 2018-08-14 13:14 | ECHOD_ITS ---
Reason For Study: TIA/CVA Procedure This was a 2D Doppler, Color Flow transthoracic echocardiogram. Exam performed portable in patient room. Left Ventricle Normal LV size. Left ventricular systolic function is normal. The estimated ejection fraction is 60 %. No regional wall motion abnormalities noted. Right Ventricle Normal RV size. Normal systolic function. Atria Normal left atrium. Normal right atrium. Bubble contrast study negative for right to left interatrial shunt. Mitral Valve Normal mitral valve. Tricuspid Valve Normal tricuspid valve. Aortic Valve Normal aortic valve. Trisinus/trileaflet aortic valve. Pulmonic Valve Normal pulmonic valve. Mild (1+) pulmonic valve insufficiency. Great Vessels Normal aortic root. The pulmonary artery is normal size. Normal inferior vena cava. Pericardium/Pleural No pericardial effusion. Medication Performed a rapid injection of agitated mix of 9 cc saline and 1cc air to assess for atrial septal defect. MMode/2D Measurements & Calculations LVIDd: 3.8 cm IVSd: 1.1 cm Ao root diam: 3.1 cm LVIDs: 2.4 cm LVPWd: 1.0 cm RVDd: 3.5 cm FS: 37.0 % LAV(MOD-bp): 26.2 ml LVAd ap4: 30.3 cm2 SV(MOD-sp4): 54.9 ml LAV(MOD-bp) Indexed: 13.1 ml/m2 EDV(MOD-sp4): 93.3 ml LAV(MOD-sp2): 26.1 ml EDV(sp4-el): 96.9 ml LAV(MOD-sp4): 26.9 ml LVAs ap4: 17.8 cm2 ESV(MOD-sp4): 38.3 ml ESV(sp4-el): 39.9 ml EF(MOD-sp4): 58.9 % EF(sp4-el): 58.8 % SV(sp4-el): 57.0 ml LA A4 area: 11.7 cm2 LA dimension(2D): 3.3 cm RA A4 area: 10.4 cm2 Time Measurements MV dec time: 0.23 sec Doppler Measurements & Calculations MV E max raphael: 55.7 cm/sec Lat Peak E' Raphael: 13.6 cm/sec Med Peak E' Raphael: 7.8 cm/sec MV A max raphael: 53.1 cm/sec E/E' lat: 4.1 E/E' med: 7.1 MV E/A: 1.0 Ao V2 max: 123.4 cm/sec LV V1 max: 86.2 cm/sec PA V2 max: 82.8 cm/sec Ao max P.1 mmHg LV V1 max P.0 mmHg TR max raphael: 184.9 cm/sec TR max P.7 mmHg Interpretation Summary Normal LV size. Left ventricular systolic function is normal. The estimated ejection fraction is 60 %. Bubble contrast study negative for right to left interatrial shunt. Structurally normal valves. Ordering Physician: Rd Barrios Referring Physician: CHARIS ALICIA Performed By: Concha Liu RDCS
[2018-08-14] MEDS: Acetaminophen 325 MG Tablet 650 MG PO (14:00)
[2018-08-14] MEDS: 0.9% NaCl Peripheral Flush Adult/Peds IV ×2 (14:00→14:52)
[2018-08-14] MEDS: 0.9% Normal Saline 1,000 ML 100 ML IV ×2 (14:01→22:05)
[2018-08-14] MEDS: Insulin Lispro 100 UNIT/ML INSULN.PEN SQ ×3 (14:41→22:00)
[2018-08-14 14:56] LABS: Bedside Glucose 247 mg/dL (70-110)
[2018-08-14] MEDS: traMADol 50 MG Tablet 100 MG PO (20:07)
[2018-08-14 21:11] LABS: Bedside Glucose 300 mg/dL (70-110)
[2018-08-14] MEDS: Atorvastatin Calcium 80 MG Tablet PO (22:03)
[2018-08-14] MEDS: Topiramate 100 MG Tablet PO (22:03)
[2018-08-14 23:05] LABS: Bedside Glucose 336 mg/dL (70-110)
[2018-08-15] VITALS (9 sets, daily range): BP systolic 108–123; BP diastolic 70–84; PULSE 68–111; RESP 16; TEMP 36.6–36.8; O2SAT 95–97
[2018-08-15] MEDS: Enoxaparin 40 MG/0.4 ML Syringe SC (05:28)
[2018-08-15 06:56] LABS: Bedside Glucose 254 mg/dL (70-110)
[2018-08-15] MEDS: 0.9% Normal Saline 1,000 ML 100 ML IV (07:36)
[2018-08-15] MEDS: Aspirin 81 MG TAB.CHEW PO (07:42)
[2018-08-15] MEDS: Gabapentin 300 MG Capsule PO ×3 (07:42→15:56)
[2018-08-15] MEDS: Topiramate 50 MG Tablet PO (07:43)
[2018-08-15] MEDS: Insulin Lispro 100 UNIT/ML INSULN.PEN SQ ×3 (07:43→15:57)
--- NOTE | 2018-08-15 08:29 | MRI_ITS ---
STUDY: MRI BRAIN WITHOUT CONTRAST REASON FOR EXAM: Female, 37 years old. CVA, right-sided weakness TECHNIQUE: Standardized multiplanar fat and water weighted pulse sequences were obtained. COMPARISON: MR brain 02/08/2018. FINDINGS: There is absence of the corpus callosum posterior body and splenium with parallel configuration of the lateral ventricles, similar to prior exams. Normal size of the ventricles and extra-axial spaces for the patient's age. Normal white matter tracts of the supratentorial brain. Normal bilateral basal ganglia. Normal thalami. There is no extra-axial fluid accumulation. Normal flow voids within the major intracranial circulation suggesting patency by spin echo criteria. Normal sella turcica, pituitary gland, infundibular stalk, optic chiasm and hypothalamus. Normal tectal plate and pineal gland. Normal midbrain, nav and medulla. Normal cerebellum. Normal basal cisterns. Normal bilateral temporal bones. Normal bilateral internal auditory canals. No demonstrated orbital abnormality, within the constraints of a routine brain study. Normal visualized paranasal sinuses. Normal calvarium and skull base. Normal visualized soft tissue structures. Normal visualized upper cervical spine. MRI/Brain without Contrast IMPRESSION: Dysgenesis of the corpus callosum. No acute intracranial abnormality. Electronically Signed: Carleeleslie Ley, at 10:03 EDT Tel , Service support ,
--- NOTE | 2018-08-15 09:21 | PN_ITS ---
Subjective: The patient is a 37-year-old female with a past medical history of seizure disorder, conversion reactions, obesity, hyperlipidemia, type 2 diabetes mellitus and an AVM of the brain who presented to the emergency department at [facility] complaining of right-sided weakness and inability to walk. She drove herself to the emergency department and walked into the ER. She has had previous admissions to the hospital for right-sided weakness and MRI in November 2017 was negative and MRI in February 2018 was also negative. 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 Lab was remarkable for a low sodium at 132 and a BUN of 19 with a creatinine of 0.99. Blood sugars have been uncontrolled. Lipid panel in November 2017 showed an LDL of 152 and an HDL of 39. MRI was completed this a.m. but there is no report yet. - Physical Exam Vital Signs Temp Pulse Resp BP Pulse Ox 97.9 F 73 16 113/71 97 08/15/18 04:20 08/15/18 07:23 08/15/18 04:20 08/15/18 04:20 08/15/18 04:20 Oxygen Delivery Method Room Air Weight: 199 lb 1.239 oz Body Mass Index (BMI) 32.1 Finger Stick Blood Glucose 313 Intake and Output for Last 24 Hours 08/13/18 08/14/18 08/15/18 23:59 23:59 23:59 Intake Total 240 / 240 1930 / 1930 Balance 240 / 240 1930 / 1930 Laboratory Tests Past 24 Hrs 08/14/18 08/14/18 10:30 10:30 WBC 7.3 RBC 5.81 H Hgb 15.7 H Hct 45.8 MCV 78.8 L MCH 27.0 MCHC 34.3 RDW 14.3 RDW Differential 40.9 Plt Count 277 MPV 10.8 Immature Gran % (Auto) 0.800 Neut % (Auto) 49.8 Lymph % (Auto) 33.4 Dickens % (Auto) 6.2 Eos % (Auto) 8.8 H Baso % (Auto) 1.0 Absolute Neuts (auto) 3.6 Absolute Lymphs (auto) 2.43 Total Counted Not Reportable Sodium 132 L Potassium 4.3 Chloride 100 Carbon Dioxide 24.0 Anion Gap 8 BUN 19 H Creatinine 0.99 Estim Creat Clear Calc 73.54 Est GFR (MDRD) Af Amer 81 Est GFR (MDRD) Non-Af 67 BUN/Creatinine Ratio 19.1 Glucose 293 H Calcium 9.1 POC Glucose 08/15/18 08/14/18 08/14/18 06:47 21:55 16:41 POC Glucose 254 H 336 H 300 H 08/14/18 08/14/18 14:41 10:29 POC Glucose 247 H 313 H Medical Necessity - Tobacco Use Smoking Status: Former smoker Assessment/Plan All Active Problems Upper GI bleed (Acute) Right sided weakness (Acute)
[2018-08-15 09:56] LABS: Hemoglobin A1c 9.5 % (4.2-6.3)
--- NOTE | 2018-08-15 10:05 | CON.PCM_ITS ---
Reason for Consult Date of Consultation: 08/15/18 Reason for Consultation: right sided weakness History of Present Illness: The patient is a 37 year old F presented with right sided weakness, now improved, no other complaints. no trigger. reports symptoms started with left retroorbital pain, then right arm pins and needles then weak. was able to drive to the hospital, but reportedly right leg was weak. was able to walk. reports has a history of complex migraine, however reports this is dissimilar, although they do affect the right the right side. no med changes, denies stress or insomnia. Sees Dr Noah Milligan in [place]. Per admission note: The patient is a 37 year old F with PMH as below who presents to the hospital with 1/2-hour onset of right-sided weakness she states that she is unable to walk though she was able to drive herself to the hospital and walk into the ER. She has a history of complex migraines versus conversion disorders as well as a seizure disorder that she sees neurology for. Her symptoms started at 930 decreased and she presented to the ER around 10:00. The ED physician initially obtain an NIH of 8, but he discussed the case with neurology who did not feel that this was likely a stroke given her past medical history and her age though did recommend that we proceed with an MRI in the morning. She has had a previous MRI in February 2018 for stroke, difficulty swallowing and right-sided weakness at that time. That MRI was negative for s troke and only stroke showed dysgenesis of the corpus callosum. She also had a an MRI in November 2017 once again for right-sided weakness which was negative for stroke. Will admit to PCU for monitoring. Her blood sugar on admission was 293 and her hemoglobin was 15.7 indicating possible dehydration. Past Medical History Past Medical History (Chronic Problems): Chronic Problems AVM (arteriovenous malformation) brain (Chronic) Seizure disorder (Chronic) Obesity (Chronic) HLD (hyperlipidemia) (Chronic) Type II diabetes mellitus (Chronic) Allergies Sulfa (Sulfonamide Antibiotics) Allergy (Intermediate, Verified 08/14/18 10:50) Hives Iodinated Contrast- Oral and IV Dye Allergy (Mild, Verified 08/14/18 10:50) Rash uncontrollable itching nortriptyline Adverse Reaction (Severe, Verified 08/14/18 10:50) Other lowered blood sugar, caused irregular hear rythym metformin Adverse Reaction (Intermediate, Verified 08/14/18 10:50) Diarrhea morphine Adverse Reaction (Verified 08/14/18 10:50) Itching Home Medications: Ambulatory Orders Medication Instructions Recorded Liraglutide [Victoza 2-Ben] 1.8 units SQ DAILY 09/20/15 Topiramate [Topamax] 100 mg PO QHS 09/20/15 Topiramate [Topamax] 50 mg PO BREAKFAST 07/02/16 Gabapentin [Neurontin] 300 mg PO TIDCM 05/10/17 traMADol [Ultram] 100 mg PO BID 05/10/17 Naproxen [Naprosyn] 500 mg PO BID PRN PRN #20 tablet 08/01/18 Acetaminophen with Codeine 1 tab PO Q6H PRN PRN 08/14/18 [Acetaminophen-Cod #3 Tablet] Empagliflozin [Jardiance] 25 mg PO DAILY 08/14/18 Surgical History: cholecystectomy, hysterectomy, - - Embolization of vein in the uterus Smoking Status: Former smoker Alcohol: None Drugs: None - *Family History Maternal History Items: - - Rheumatoid arthritis Paternal History Items: No pertinent history Review of Systems Constitutional: Denies: Chills, Fever, Weight Change HEENT: Denies: Head Aches, Sinus Congestion, Sinus Drainage Cardiovascular: Denies: Chest Pain, Palpitations Respiratory: Denies: Cough, Shortness of breath at rest, Sputum production Gastrointestinal: Denies: Abdominal Pain, Nausea, Vomiting Genitourinary: Denies: Dysuria Musculoskeletal: Denies: Joint Pain, Joint Tenderness Skin: Denies: Rash, Wounds Neurological: Denies: Numbness, Tingling, Focal weakness Psychiatric: Denies: Anxiety, Depression, Homicidal Ideations, Suicidal Ideations Hematologic/ Lymphatic: Denies: Easy Bruising, Easy Bleeding - Physical Exam General: Alert, Oriented x3, Cooperative, No apparent distress Neurological: Cranial nerves II-XII grossly intact, Deep Tendon Reflexes 2+/4 and Symmetrical, - - right arm give-way weakness Vital Signs Temp Pulse Resp BP Pulse Ox 36.6 C 73 16 113/71 97 08/15/18 04:20 08/15/18 07:23 08/15/18 04:20 08/15/18 04:20 08/15/18 04:20 Oxygen Delivery Method Room Air Weight: 90.3 kg Body Mass Index (BMI) 32.1 Finger Stick Blood Glucose 313 Intake and Output for Last 24 Hours 08/13/18 08/14/18 08/15/18 23:59 23:59 23:59 Intake Total 240 / 240 1929 Balance 240 / 240 1929 Laboratory Tests Past 24 Hrs 08/14/18 08/14/18 08/15/18 10:30 10:30 05:00 WBC 7.3 RBC 5.81 H Hgb 15.7 H Hct 45.8 MCV 78.8 L MCH 27.0 MCHC 34.3 RDW 14.3 RDW Differential 40.9 Plt Count 277 MPV 10.8 Immature Gran % (Auto) 0.800 Neut % (Auto) 49.8 Lymph % (Auto) 33.4 Gallia % (Auto) 6.2 Eos % (Auto) 8.8 H Baso % (Auto) 1.0 Absolute Neuts (auto) 3.6 Absolute Lymphs (auto) 2.43 Total Counted Not Reportable Sodium 132 L Potassium 4.3 Chloride 100 Carbon Dioxide 24.0 Anion Gap 8 BUN 19 H Creatinine 0.99 Estim Creat Clear Calc 73.54 Est GFR (MDRD) Af Amer 81 Est GFR (MDRD) Non-Af 67 BUN/Creatinine Ratio 19.1 Glucose 293 H Hemoglobin A1c 9.5 H Calcium 9.1 POC Glucose 08/15/18 08/14/18 08/14/18 06:47 21:55 16:41 POC Glucose 254 H 336 H 300 H 08/14/18 08/14/18 14:41 10:29 POC Glucose 247 H 313 H MRI reviewed, normal. No acute infarct. Current Home Med List Medication Instructions Recorded Confirmed Type Liraglutide [Victoza 2-Ben] 1.8 units SQ DAILY 09/20/15 08/14/18 History Topiramate [Topamax] 100 mg PO QHS 09/20/15 08/14/18 History Topiramate [Topamax] 50 mg PO BREAKFAST 07/02/16 08/14/18 History Gabapentin [Neurontin] 300 mg PO TIDCM 05/10/17 08/14/18 History traMADol [Ultram] 100 mg PO BID 05/10/17 08/14/18 History Naproxen [Naprosyn] 500 mg PO BID PRN PRN #20 tablet 08/01/18 08/14/18 Rx Acetaminophen with Codeine 1 tab PO Q6H PRN PRN 08/14/18 08/14/18 History [Acetaminophen-Cod #3 Tablet] Empagliflozin [Jardiance] 25 mg PO DAILY 08/14/18 08/14/18 History Current Medications Generic Name Dose Route Start Last Admin Trade Name Freq PRN Reason Stop Dose Admin Acetaminophen 650 mg 08/14/18 13:48 08/14/18 14:00 Tylenol PO 650 mg Q6H PRN PRN Administration HEADACHE Acetaminophen/Codeine Phosphate 1 tablet 08/14/18 18:42 Tylenol#3 PO Q6H PRN PRN PAIN Aspirin 81 mg 08/15/18 08:00 08/15/18 07:42 Aspirin, Baby PO 81 mg DAILY@0800 KOBY Administration Atorvastatin Calcium 80 mg 08/14/18 22:00 08/14/18 22:03 Lipitor PO 80 mg QHS KOBY Administration Dextrose 0 gm 08/14/18 13:14 D50w Syringe IV X1 PRN Hypoglycemia Protocol Enoxaparin Sodium 40 mg 08/15/18 06:00 08/15/18 05:28 Lovenox SC 40 mg DAILY@0600 KOBY Administration Gabapentin 300 mg 08/15/18 08:00 08/15/18 07:42 Neurontin PO 300 mg TIDCM KOBY Administration Glucagon 1 mg 08/14/18 13:14 IM .X1 PRN Hypoglycemia Sodium Chloride 1,000 mls @ 100 mls/hr 08/14/18 13:14 08/15/18 07:36 IV 100 mls/hr .Q10H KOBY Administration Insulin Glargine 10 units 08/14/18 22:00 08/14/18 22:02 Lantus ([facility]) SC 10 unit QHS KOBY Administration Insulin Human Lispro 0 unit 08/14/18 16:00 08/15/18 07:43 Humalog Kwikpen ([facility]) SQ 4 u ACHS KOBY Administration Protocol Labetalol HCl 10 mg 08/14/18 13:14 Trandate IV 08/15/18 13:15 Q10M PRN MAINTAIN BP < 220/120 Magnesium Hydroxide 30 ml 08/14/18 13:14 Milk Of Magnesia PO DAILY PRN Constipation Naproxen 500 mg 08/14/18 18:42 Naprosyn PO BID PRN PRN PAIN Sodium Chloride 5 - 15 ml 08/14/18 13:55 08/14/18 14:52 IV 10 ml UD PRN Administration SALINE FLUSH Topiramate 50 mg 08/15/18 08:00 08/15/18 07:43 Topamax PO 50 mg BREAKFAST KOBY Administration Topiramate 100 mg 08/14/18 22:00 08/14/18 22:03 Topamax PO 100 mg QHS KOBY Administration Tramadol HCl 100 mg 08/14/18 22:00 08/15/18 10:26 Ultram PO 100 mg BID KOBY Administration Assessment/Plan All Active Problems Upper GI bleed (Acute) Right sided weakness (Acute) complex migrain v conversion pt/ot out pt f/u with usual neurologist consider to consider crgp receptor antagonists
[2018-08-15] MEDS: traMADol 50 MG Tablet 100 MG PO (10:26)
[2018-08-15] MEDS: Empagliflozin 25 MG Tablet PO (10:26)
[2018-08-15 11:36] LABS: Bedside Glucose 327 mg/dL (70-110)
[2018-08-15] MEDS: Acetaminophen 325 MG Tablet 650 MG PO (15:56)
[2018-08-15 16:50] LABS: Bedside Glucose 255 mg/dL (70-110)
--- NOTE | 2018-08-15 17:56 | PCM.DC.SUM ---
Discharge Date and Diagnosis Date of Admission: 08/14/18 Date of Discharge: 08/15/18 - Primary Discharge Diagnosis Right side weakness Malingering - suspected - Secondary Discharge Diagnosis Chronic Problems AVM (arteriovenous malformation) brain (Chronic) Seizure disorder (Chronic) Obesity (Chronic) HLD (hyperlipidemia) (Chronic) Type II diabetes mellitus (Chronic) Guillanicolasa [place] S. February 2018 - states this was diagnosed at [facility] Course and Treatment Imaging Results: Clinical Impression(s) from Imaging Studies Brain CT 08/14/18 10:38 IMPRESSION: 1. No acute intracranial hemorrhage or mass effect. 2. Partial agenesis of the corpus callosum. N.B. : The above information has been verbally conveyed by Kirit Shaw MD to Macho Magallanes MD, on 08/14/2018 10:56:28 (ET). Electronically Signed: Kirit Shaw MD at 10:58 EDT , Service support , ADDENDUM: 08/14/18 1105 IMPRESSION: 1. No acute intracranial hemorrhage or mass effect. 2. Partial agenesis of the corpus callosum. N.B. : The above information has been verbally conveyed by Kirit Shaw MD to Macho Magallanes MD, on 08/14/2018 10:56:28 (ET). Electronically Signed: Kirit Shaw MD at 10:58 EDT , Service support , ADDENDUM: 08/15/18 0939 IMPRESSION: 1. No acute intracranial hemorrhage or mass effect. 2. Partial agenesis of the corpus callosum. N.B. : The above information has been verbally conveyed by Kirit Shaw MD to Macho Magallnaes MD, on 08/14/2018 10:56:28 (ET). Electronically Signed: Kirit Shaw MD at 10:58 EDT , Service support , Chest X-Ray 08/14/18 10:39 IMPRESSION: Nonacute portable x-ray examination of the chest. Electronically Signed: Kirit Shaw MD at 11:16 EDT , Service support , Brain MRI 08/15/18 08:29 IMPRESSION: Dysgenesis of the corpus callosum. No acute intracranial abnormality. Electronically Signed: Juliann Ley, at 10:03 EDT Tel , Service support , Dr. Warren Castro-neurology Operations: None Procedures: None Summary of Care Provided: The patient is a 37-year-old female with a past medical history of seizure disorder, conversion reactions, obesity, hyperlipidemia, type 2 diabetes mellitus and an AVM of the brain who presented to the emergency department at [facility] complaining of right-sided weakness and inability to walk. She drove herself to the emergency department and walked into the ER. She has had previous admissions to the hospital for right-sided weakness and MRI in November 2017 was negative for CVA and MRI in February 2018 was also negative for CVA. 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 Lab was remarkable for a low sodium at 132 and a BUN of 19 with a creatinine of 0.99. Blood sugars were uncontrolled. Lipid panel in November 2017 showed an LDL of 152 and an HDL of 39. She was recently an inpt at [place] for the same complaint and work-up was negative. MRI of the brain showed dysgenesis of the corpus callosum which is chronic and no acute intracranial abnormality. She would not move the right arm when anyone examined her but, on camera she was seen to put her earrings in with the RUE and to hold her cell phone to her ear with the R arm. She was also observed to be eating with her R arm when I walked in on her. I explained to her that she did not have a stroke and that she was observed normally moving the R side on camera. I asked her if she was safe in her home and if she was being abused and she said no. I asked if she ever saw a psychotherapist or had ever been diagnosed with borderline disorder disorder, malingering, Munchhausen's S, conversion disorder or depression and she denied. I offered to have behavioral health talk with her and she refused. She was discharged home and will follow up with Dr. Chris Espinal and with her neurologist at [place]. I told her if she reconsidered and wanted help with mental health evaluation she could come back. Alert and oriented x3, no apparent distress Carotids had brisk upstroke and good pulse volume, no carotid bruits, no JVD Lungs-clear to auscultation throughout Heart-regular rate and rhythm, no gallop, no murmur, no rub, no ectopy on telemetry Abdomen-obese, soft, nontender, nondistended, bowel sounds present Neuro exam-when I asked the patient to lift her right arm she could not. I subsequently lifted her arms and left the right arm drop but she gradually let it drift down and held it about 4 inches to 6 inches above the bed. The same thing happened with the legs. She had right-sided neglect which I believe she faked. Babinski's were downgoing BL. She had no facial asymmetry. she ambulated 250 feet. This note was generated with [employer] dictation software. It may contain incorrect words, spelling, and punctuation that were not noted in checking the note before signing. - Physical Exam Vital Signs Temp Pulse Resp BP Pulse Ox 98.3 F 86 16 123/84 H 97 08/15/18 15:52 08/15/18 15:52 08/15/18 15:52 08/15/18 15:52 08/15/18 15:52 Oxygen Delivery Method Room Air Weight: 199 lb 1.239 oz Body Mass Index (BMI) 32.1 Finger Stick Blood Glucose 313 Intake and Output for Last 24 Hours 08/13/18 08/14/18 08/15/18 23:59 23:59 23:59 Intake Total 240 / 240 2170 / 2170 Balance 240 / 240 2170 / 2170 Laboratory Tests Past 24 Hrs 08/15/18 05:00 Hemoglobin A1c 9.5 H POC Glucose 08/15/18 08/15/18 08/15/18 15:54 11:29 06:47 POC Glucose 255 H 327 H 254 H 08/14/18 08/14/18 21:55 16:41 POC Glucose 336 H 300 H Home Medications: Medications to take at Discharge Liraglutide [Victoza 2-Ben] 1.8 units SQ DAILY 09/20/15 Topiramate [Topamax] 100 mg PO QHS 09/20/15 Topiramate [Topamax] 50 mg PO BREAKFAST 07/02/16 Gabapentin [Neurontin] 300 mg PO TIDCM 05/10/17 traMADol [Ultram] 100 mg PO BID 05/10/17 Naproxen [Naprosyn] 500 mg PO BID PRN PRN #20 tablet 08/01/18 Acetaminophen with Codeine [Acetaminophen-Cod #3 Tablet] 1 tab PO Q6H PRN PRN 08/14/18 Empagliflozin [Jardiance] 25 mg PO DAILY 08/14/18 Primary Care Physician: Chris Espinal MD [Primary Care Provider] - Disposition: Home Minutes spent on discharge:: 35 Patient Condition:: Stable Medical Necessity - Tobacco Use Smoking Status: Former smoker Tobacco Use: Non-smoker Meaningful Use Info Meaningful Use Diagnoses (Choose all that apply): None applicable Code Visit Inpatient E&M: 22885 Disch Hosp
--- NOTE | 2018-08-15 18:06 | DS.PCM_ITS ---
Discharge Date and Diagnosis Date of Admission: 08/14/18 Date of Discharge: 08/15/18 - Primary Discharge Diagnosis Right side weakness Malingering - suspected - Secondary Discharge Diagnosis Chronic Problems AVM (arteriovenous malformation) brain (Chronic) Seizure disorder (Chronic) Obesity (Chronic) HLD (hyperlipidemia) (Chronic) Type II diabetes mellitus (Chronic) Guillanicolasa [place] S. February 2018 - states this was diagnosed at [facility] Course and Treatment Imaging Results: Clinical Impression(s) from Imaging Studies Brain CT 08/14/18 10:38 IMPRESSION: 1. No acute intracranial hemorrhage or mass effect. 2. Partial agenesis of the corpus callosum. N.B. : The above information has been verbally conveyed by Kirit Shaw MD to Macho Magallanes MD, on 08/14/2018 10:56:28 (ET). Electronically Signed: Kirit Shaw MD at 10:58 EDT , Service support , ADDENDUM: 08/14/18 1105 IMPRESSION: 1. No acute intracranial hemorrhage or mass effect. 2. Partial agenesis of the corpus callosum. N.B. : The above information has been verbally conveyed by Kirit Shaw MD to Macho Magallanes MD, on 08/14/2018 10:56:28 (ET). Electronically Signed: Kirit Shaw MD at 10:58 EDT , Service support , ADDENDUM: 08/15/18 0939 IMPRESSION: 1. No acute intracranial hemorrhage or mass effect. 2. Partial agenesis of the corpus callosum. N.B. : The above information has been verbally conveyed by Kirit Shaw MD to Macho Magallanes MD, on 08/14/2018 10:56:28 (ET). Electronically Signed: Kirit Shaw MD at 10:58 EDT , Service support , Chest X-Ray 08/14/18 10:39 IMPRESSION: Nonacute portable x-ray examination of the chest. Electronically Signed: Kirit Shaw MD at 11:16 EDT , Service support , Brain MRI 08/15/18 08:29 IMPRESSION: Dysgenesis of the corpus callosum. No acute intracranial abnormality. Electronically Signed: Juliann Ley, at 10:03 EDT Tel , Service support , Dr. Warren Castro-neurology Operations: None Procedures: None Summary of Care Provided: The patient is a 37-year-old female with a past medical history of seizure disorder, conversion reactions, obesity, hyperlipidemia, type 2 diabetes mellitus and an AVM of the brain who presented to the emergency department at [facility] complaining of right-sided weakness and inability to walk. She drove herself to the emergency department and walked into the ER. She has had previous admissions to the hospital for right-sided weakness and MRI in November 2017 was negative for CVA and MRI in February 2018 was also negative for CVA. 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 Lab was remarkable for a low sodium at 132 and a BUN of 19 with a creatinine of 0.99. Blood sugars were uncontrolled. Lipid panel in November 2017 showed an LDL of 152 and an HDL of 39. She was recently an inpt at [place] for the same complaint and work-up was negative. MRI of the brain showed dysgenesis of the corpus callosum which is chronic and no acute intracranial abnormality. She would not move the right arm when anyone examined her but, on camera she was seen to put her earrings in with the RUE and to hold her cell phone to her ear with the R arm. She was also observed to be eating with her R arm when I walked in on her. I explained to her that she did not have a stroke and that she was observed normally moving the R side on camera. I asked her if she was safe in her home and if she was being abused and she said no. I asked if she ever saw a psychotherapist or had ever been diagnosed with borderline disorder disorder, malingering, Munchhausen's S, conversion disorder or depression and she denied. I offered to have behavioral health talk with her and she refused. She was discharged home and will follow up with Dr. Chris Espinal and with her neurologist at [place]. I told her if she reconsidered and wanted help with mental health evaluation she could come back. Alert and oriented x3, no apparent distress Carotids had brisk upstroke and good pulse volume, no carotid bruits, no JVD Lungs-clear to auscultation throughout Heart-regular rate and rhythm, no gallop, no murmur, no rub, no ectopy on telemetry Abdomen-obese, soft, nontender, nondistended, bowel sounds present Neuro exam-when I asked the patient to lift her right arm she could not. I subsequently lifted her arms and left the right arm drop but she gradually let it drift down and held it about 4 inches to 6 inches above the bed. The same thing happened with the legs. She had right-sided neglect which I believe she faked. Babinski's were downgoing BL. She had no facial asymmetry. she ambulated 250 feet. This note was generated with [employer] dictation software. It may contain incorrect words, spelling, and punctuation that were not noted in checking the note before signing. - Physical Exam Vital Signs Temp Pulse Resp BP Pulse Ox 98.3 F 86 16 123/84 H 97 08/15/18 15:52 08/15/18 15:52 08/15/18 15:52 08/15/18 15:52 08/15/18 15:52 Oxygen Delivery Method Room Air Weight: 199 lb 1.239 oz Body Mass Index (BMI) 32.1 Finger Stick Blood Glucose 313 Intake and Output for Last 24 Hours 08/13/18 08/14/18 08/15/18 23:59 23:59 23:59 Intake Total 240 / 240 2170 / 2170 Balance 240 / 240 2170 / 2170 Laboratory Tests Past 24 Hrs 08/15/18 05:00 Hemoglobin A1c 9.5 H POC Glucose 08/15/18 08/15/18 08/15/18 15:54 11:29 06:47 POC Glucose 255 H 327 H 254 H 08/14/18 08/14/18 21:55 16:41 POC Glucose 336 H 300 H Home Medications: Medications to take at Discharge Liraglutide [Victoza 2-Ben] 1.8 units SQ DAILY 09/20/15 Topiramate [Topamax] 100 mg PO QHS 09/20/15 Topiramate [Topamax] 50 mg PO BREAKFAST 07/02/16 Gabapentin [Neurontin] 300 mg PO TIDCM 05/10/17 traMADol [Ultram] 100 mg PO BID 05/10/17 Naproxen [Naprosyn] 500 mg PO BID PRN PRN #20 tablet 08/01/18 Acetaminophen with Codeine [Acetaminophen-Cod #3 Tablet] 1 tab PO Q6H PRN PRN 08/14/18 Empagliflozin [Jardiance] 25 mg PO DAILY 08/14/18 Primary Care Physician: Chris Espinal MD [Primary Care Provider] - Disposition: Home Minutes spent on discharge:: 35 Patient Condition:: Stable Medical Necessity - Tobacco Use Smoking Status: Former smoker Tobacco Use: Non-smoker Meaningful Use Info Meaningful Use Diagnoses (Choose all that apply): None applicable Code Visit Inpatient E&M: 51500 Disch Hosp
--- NOTE | 2018-08-15 18:19 | DCINST_ITS ---
You will use the following diet at home:: Calorie/Carbohydrate Controlled (specify 1200, 1400, etc) Your food should be the consistency of: Regular Your liquids should be the consistency of: Regular/Thin Discharge Activity: Return to Normal Activity Call your doctor if you observe: Fever of 101 or Higher, Shortness of breath, Dizziness, Fainting spells Additional Instructions: 1. I talked with Dr. Espinal and he wants to see you in the office this week. Call the office in the morning to get an appt. 2. you should follow up with Dr. Ford. Allergies/Adverse Reactions: Allergies Sulfa (Sulfonamide Antibiotics) Allergy (Intermediate, Verified 08/14/18 10:50) Hives Iodinated Contrast- Oral and IV Dye Allergy (Mild, Verified 08/14/18 10:50) Rash uncontrollable itching nortriptyline Adverse Reaction (Severe, Verified 08/14/18 10:50) Other lowered blood sugar, caused irregular hear rythym metformin Adverse Reaction (Intermediate, Verified 08/14/18 10:50) Diarrhea morphine Adverse Reaction (Verified 08/14/18 10:50) Itching Medications to take at Discharge Liraglutide [Victoza 2-Ben] 1.8 units SQ DAILY 09/20/15 Topiramate [Topamax] 100 mg PO QHS 09/20/15 Topiramate [Topamax] 50 mg PO BREAKFAST 07/02/16 Gabapentin [Neurontin] 300 mg PO TIDCM 05/10/17 traMADol [Ultram] 100 mg PO BID 05/10/17 Naproxen [Naprosyn] 500 mg PO BID PRN PRN #20 tablet 08/01/18 Acetaminophen with Codeine [Acetaminophen-Cod #3 Tablet] 1 tab PO Q6H PRN PRN 08/14/18 Empagliflozin [Jardiance] 25 mg PO DAILY 08/14/18 Primary Care Physician: Chris Espinal MD [Primary Care Provider] - Please follow up with your Primary Care Physician in: call the office for an appt this week Test Results: Test results from this visit will be discussed in further detail at your follow- up appointment, if applicable. Please Follow Up With: Dr. Ford When: call the office for an appt. Proposed Discharge Date: 08/15/18
== END 2018-08-15 18:19 | disposition home or self-care (01) ==
LOC: ED 10:38 → PCU 12:50
PROVIDERS: Admitting Provider Family Medicine; Emergency Provider Emergency Medicine; Family Provider Family Medicine; PCP Family Medicine; Visit Provider Internal Medicine
DX: R53.1 Weakness (principal); R51 Headache; G40.909 Epilepsy, unspecified, not intractable, without status epilepticus; E11.9 Type 2 diabetes mellitus without complications; I10 Essential (primary) hypertension; Q28.2 Arteriovenous malformation of cerebral vessels; E78.5 Hyperlipidemia, unspecified; E66.9 Obesity, unspecified; Q04.0 Congenital malformations of corpus callosum; Z86.73 Personal history of transient ischemic attack (TIA), and cerebral infarction without residual deficits; Z79.899 Other long term (current) drug therapy; Z68.32 Body mass index [BMI] 32.0-32.9, adult; Z71.3 Dietary counseling and surveillance; Z87.891 Personal history of nicotine dependence
CPT/HCPCS: 70450; 70551; 71045; 80048; 82962; 83036; 85025; 92526; 92610; 93005; 93306; 96360; 96361; 96372; 97161; 97166; 97802; 99218; 99283; J7030; A4216; G0378

== ENCOUNTER → 2018-09-01 09:16 | Outpatient (CLI) | payer MEDICARE, SELFPAY ==
[2018-09-01 09:11] VITALS: BMI 32.1
--- NOTE | 2018-09-01 09:18 | RAD_ITS ---
STUDY: X-RAY - CERVICAL SPINE REASON FOR EXAM: Female, 37 years old. Neck pain and headache TECHNIQUE: 6 view(s) of the cervical spine were obtained. COMPARISON: None FINDINGS: Normal anterior atlantoaxial articulation. Normal odontoid process. Normal cervical lordosis. Normal vertebral bodies and endplates. Normal disc space heights. Normal visualized intervertebral neuroforamina. The soft tissue structures are unremarkable. RAD/Cerv Spine 4 or 5 Views IMPRESSION: Normal x-ray examination of the visualized cervical spine. Electronically Signed: Shelton Harvey MD at 13:44 EDT , Service support ,
--- NOTE | 2018-09-01 09:18 | RAD_ITS ---
STUDY: X-RAY - LEFT SHOULDER REASON FOR EXAM: Female, 37 years old. Pain, decreased range of motion TECHNIQUE: 3 view(s) of the shoulder. COMPARISON: None. FINDINGS: Normal glenohumeral articulation. Normal acromioclavicular joint. Normal acromion. Normal humeral head and visualized proximal humerus. The soft tissue structures are unremarkable. Normal visualized pulmonary apex. RAD/Shoulder min 2 Views IMPRESSION: Normal x-ray examination of the shoulder. Electronically Signed: Shelton Harvey MD at 13:45 EDT , Service support ,
== END ==
LOC: HPRAD 09:17
PROVIDERS: Family Provider Family Medicine; PCP Family Medicine; Referring Provider Orthopaedic Surgery; Visit Provider Orthopaedic Surgery
DX: R20.0 Anesthesia of skin (principal); R20.2 Paresthesia of skin; M25.512 Pain in left shoulder
CPT/HCPCS: 72050; 73030

== ENCOUNTER 2018-09-12 14:30 | Outpatient (RCR) | payer MEDICARE, SELFPAY ==
[2018-09-01 09:11] VITALS: BMI 32.1
--- NOTE | 2018-09-08 11:46 | HP.PTEVAL_ITS ---
Patient's Visit Information DELMY POLLACK is a 37 year old F referred to Physical Therapy by Jennifer Hsu DO with a diagnosis of Left RTC and Biceps Tendonitis. Date of Evaluation: 09/08/18 Physical Therapist: Yazmin Pteerson DPT - Visit Plan Frequency: 2x /Week Duration: 4 Weeks Plan: Focus on scapular s/s of the left UE- Ultrasound as modality of choice to anterior shoulder - Subjective Findings: Patient reports seeing Dr. Hsu and they are thinking RTC tendonitis- started a few months ago and then its been inconsistent since. Insidious onset. Agg: reaching into her back pocket and heavy lifting. Pain is located in the shoulder and tingles to the fingers. That is now all the time it comes and goes. Worst: 7/10 Best: 3/10 Eases: heat at night. Describes the pain as sharp pains when lifting and other times its just dull and achy. No FROST, blurred vision or dizziness. Right Hand dominate. Sleep: not disturbed- puts a towel around her elbow to keep it straight which seems to help- usually a side sleeper. 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 X-rays- negative but no MRI. No injection or medication. Talked about a steroid injection but she is a DM so they decided to try PT first. No problems with finger dexterity, national sales trainer strength. Mostly notices the tingling on the lateral arm and the pinky finger. PMHx: DM, AV malformation, epilepsy, migraines, fibro and possible RA, thryoid, [place] in February (decreased endurance). Meds: topomax, trentol, victosa, gardiance, gabapentin, tylenol 3 - Objective Posture: FH, RS- can correct but does not maintain. Gait: no deviation noted- good arm swing and trunk rotation. Palpation: tender along upper trap to the tip of the acromion and along the bicipital groove. Sensation: WNL. ROM: WFL painful at end range flexion, abduction and IR behind the back, Cervical: WNL in all planes no pain at end ranges. Strength: Scap: poor- mild winging bilateral- poor movement. Shoulder: 4/5 with pain in all directions, Elbow 4+/5, Wrist/Casino Gaming Inspector: WNL. Special Test: impingment: positive, empty can: positive - Goals Goal 1:: Patient will be I with HEP and progression Goal Time Frame: 4-6 Weeks Goal 2:: Patient will maintain proper posture t/o tx session to demo increased scap s/s Goal Time Frame: 4-6 Weeks Goal 3:: Patient will demo full AROM with 0/10 pain Goal Time Frame: 4-6 Weeks Goal 4:: Patient will report 0/10 pain for 1 week Goal Time Frame: 4-6 Weeks - Rehabilitation Potential Physical Therapy Diagnosis: Patient presents with hypmobility- she has decreased painfree ROM, strength and muscular endurance leading to impingement with decreased ability to perform ADL's. Rehabilitation Potential: Fair - Anticipated Interventions Patient/Client Instruction: Educate patient on: Benefits of Fitness Program Therapeutic Exercise to Include: Strength training, Endurance training, Agility training, Body mechanics, Postural training, Flexibilty training, Scapular Strength/Stabilization TENS: Yes Cryotherapy (ice pack, ice massage): Yes Thermo therapy (hot pack): Yes Ultrasound (thermal/non thermal): Yes Thank you for the opportunity to evaluate your patient. For Medicare and Medicare HMO plans, please review the plan of care and approve it. It will need to be FAXED BACK to us at [phone] for Medicare purposes. For Medicare only, by signing this I certify the plan of care. Please let me know if there are questions or concerns regarding this plan of care. Physician Signature: Date:
--- NOTE | 2018-09-20 11:04 | HP.PT.NRP ---
HP - Discharge Summary (1) - Patient Information DELMY POLLACK was seen in my office for initial evaluation on 09/08/18. The following Plan of Care was established for this patient: Initial Frequency: 2x /Week Initial Duration: 4 Weeks - Anticipated Interventions Patient/Client Instruction: Educate patient on: Benefits of Fitness Program Therapeutic Exercise to Include: Strength training, Endurance training, Agility training, Body mechanics, Postural training, Flexibilty training, Scapular Strength/Stabilization TENS: Yes Cryotherapy (ice pack, ice massage): Yes Thermo therapy (hot pack): Yes Ultrasound (thermal/non thermal): Yes This patient was last seen in our office . Pertinent comments regarding their Physical therapy will appear below: Patient has cancelled all apts- appropriate to be d/c at this time At this point I will be discontinuing this patient from physical therapy. I would be happy to see this patient again in the future if found appropriate by the physician. Thank you! Yazmin Peterson DPT
== END 2018-09-12 19:00 | disposition home or self-care (01) ==
LOC: PT 14:30
PROVIDERS: Family Provider Family Medicine; PCP Family Medicine; Referring Provider Orthopaedic Surgery; Visit Provider Orthopaedic Surgery
DX: M75.102 Unspecified rotator cuff tear or rupture of left shoulder, not specified as traumatic (principal); M75.22 Bicipital tendinitis, left shoulder
CPT/HCPCS: 97110; 97161

== ENCOUNTER → 2018-09-28 15:37 | Outpatient (CLI) | payer MEDICARE, SELFPAY ==
[2018-09-01 09:11] VITALS: BMI 32.1
[2018-09-28 17:40] LABS: Basophil# 0.04 X10^3/uL; Basophil% 0.5 % (0-1); Eosinophil# 0.53 X10^3/uL; Eosinophils% 6.9 % (0-5); Hematocrit 42.5 % (37-47); Hemoglobin 14.2 g/dl (12.0-15.0); Lymphocyte % 34.1 % (19-41); Mean Corp Hgb Conc 33.4 g/gl (32-36); Mean Corpuscular Hgb 27.4 pg (27.0-32.0); Mean Platelet Vol. 10.4 fl (6.2-12.0); Monocyte# 0.46 X10^3/uL; Neutrophil # 3.96 X10^3/uL (2.7-7.7); Platelet Count 262 K/mm3 (150-450); RBC Distribution Width SD 42.1 fl (35.1-43.9); Red Blood Count 5.18 M/mm3 (4.2-5.4); White Blood Count 7.6 K/mm3 (4.4-11.0)
[2018-09-28 17:45] LABS: POSITIVE COUNT NO; POSITIVE DIFFERENTIAL NO; POSITIVE MORPHOLOGY NO
[2018-09-28 18:03] LABS: Erythrocyte Sedimentation Rate 27 mm/hr (0-20)
[2018-09-28 18:11] LABS: ALB/GLOB Ratio 0.9 RATIO (0.9-2.4); AST(SGOT) 13 U/L (15-37); Alanine Aminotransfer ALT/SGPT 29 U/L (13-56); Albumin, Serum 3.6 g/dL (3.2-5.0); Alkaline Phosphatase 126 U/L (45-117); Anion Gap 8 (5-15); BUN 12 mg/dL (7-18); BUN/Creat Ratio 15.9 RATIO (10-20); CRP 6.22 mg/L (0.0-3.0); Calcium,Total 9.2 mg/dL (8.5-10.1); Chloride 102 mmol/L (98-107); Cholesterol 264 mg/dL (200); Creatinine, Serum 0.75 mg/dL (0.55-1.02); EST Glomerular Filtration Rate 92 mL/min (>60); Est Glom Filt Rate - Afr Amer 111 mL/min (>60); Globulin 3.8 g/dL (2.2-4.2); Glucose 106 mg/dL (74-106); High Density Lipoprotein 41 mg/dL; Protein, Total 7.4 g/dL (6.4-8.2); Sodium Level 139 mmol/L (136-145); Thyroid Stim Hormone (TSH) 2.21 uIU/mL (0.358-3.74); Triglycerides 345 mg/dL; Very Low Density Lipoprotein 69 mg/dL (5-40)
[2018-09-28 23:06] LABS: Vitamin B12 484 pg/mL (211-911); Vitamin D,25 Hydroxy 18.1 ng/mL (29.95-100.01)
== END ==
LOC: MFPLAB 15:40
PROVIDERS: Family Provider Family Medicine; PCP Family Medicine; Referring Provider Family Medicine; Visit Provider Family Medicine
DX: R53.83 Other fatigue (principal); E78.1 Pure hyperglyceridemia
CPT/HCPCS: 36415; 80053; 80061; 82306; 82607; 84443; 85025; 85652; 86140

== ENCOUNTER → 2018-10-04 08:42 | Outpatient (CLI) | payer MEDICARE, SELFPAY ==
[2018-09-01 09:11] VITALS: BMI 32.1
--- NOTE | 2018-10-04 09:16 | NM_ITS ---
CLINICAL: 38-year-old diabetic female with history of postprandial nausea. SEMI-SOLID PHASE 99m Tc SULFUR COLLOID GASTRIC EMPTYING STUDY COMPARISON: Previous semisolid gastric emptying study report 02/25/2016 FINDINGS: The patient was administered 1.1 mCi of 99m Tc sulfur colloid mixed with oatmeal and consumed per os. Image acquisitions in the anterior-posterior projections were obtained for 60 minutes. There is prompt visualization of the stomach. There is no gastroesophageal reflux identified. The T1/2 linear fit was calculated to be 29.53 minutes, (Normal: 12-56 minutes) compared to 68.66 minutes defined on the examination dated 02/25/2016. NM/Gastric Emptying Study IMPRESSION: 1. NORMAL 99m Tc sulfur colloid semi-solid phase (oatmeal) gastric emptying imaging examination. A. There is normal and preserved semi-solid phase gastric emptying compared to normal controls with maintained first order kinetics throughout all components of the examination. (Jonathan et al, J Nucl Med Tech 38: 186, 2010). B. Overall compared to the previous semisolid phase gastric emptying examination report dated 02/25/2016, there is interval normalization of the previously defined abnormal semisolid phase emptying results. Electronically Signed: Bryan Bhat DO at 21:35 EDT Tel , Service support ,
== END ==
PROVIDERS: Family Provider Family Medicine; PCP Family Medicine; Referring Provider Family Medicine; Visit Provider Family Medicine
DX: K31.84 Gastroparesis (principal)
CPT/HCPCS: 78264; A9541

== ENCOUNTER → 2018-10-14 09:22 | Outpatient (CLI) | payer MEDICARE, SELFPAY ==
[2018-09-01 09:11] VITALS: BMI 32.1
[2018-10-14 10:22] LABS: Erythrocyte Sedimentation Rate 104 mm/hr (0-20)
[2018-10-14 10:39] LABS: Rheumatoid Factor < 10.0 IU/mL (<15)
[2018-10-17 19:47] LABS: ANTINUCLEAR ANTIBODIES DIRECT Negative (Negative)
[2018-10-20 10:01] LABS: CCP IgG Antibodies 20 units (0-19); HLA B27 Negative (.)
== END ==
LOC: MFPLAB 09:22
PROVIDERS: Family Provider Family Medicine; PCP Family Medicine; Referring Provider Family Medicine; Visit Provider Family Medicine
DX: R70.0 Elevated erythrocyte sedimentation rate (principal)
CPT/HCPCS: 36415; 81374; 85652; 86038; 86200; 86431

== ENCOUNTER → 2018-12-01 16:21 | Outpatient (CLI) | payer MEDICARE, SELFPAY ==
[2018-09-01 09:11] VITALS: BMI 32.1
--- NOTE | 2018-12-01 16:24 | VDLE_ITS ---
Reason For Study: Pain RIGHT LEFT GSV is normal. GSV is normal. CFV is compressible, spontaneous, phasic, CFV is compressible, spontaneous, phasic, competent and demonstrates normal competent, and demonstrates normal augmentation. augmentation. FV is compressible, spontaneous, phasic, FV is compressible, spontaneous, phasic, competent and demonstrates normal competent and demonstrates normal augmentation. augmentation. POP V is compressible, spontaneous, phasic, POP V is compressible, spontaneous, phasic, competent and demonstrates normal competent and demonstrates normal augmentation. augmentation. T/P Trunk is compressible. T/P Trunk is compressible. PTV is compressible. PTV is compressible. RT PerV is compressible. LT PerV is compressible. Procedure Exam performed in department. A preliminary report was called and/or faxed to [facility]. Interpretation Summary Deep veins of the lower extremities are bilaterally patent and compressible segmentally. There is no evidence of deep vein thrombosis on either side. Valvular competence appears intact within the proximal deep venous systems bilaterally. The greater saphenous veins appear bilaterally patent and compressible segmentally. Ordering Physician: Jhonny Valladares Referring Physician: Jhonny Valladares Performed By: Karina Ramirez RVT
== END ==
PROVIDERS: Family Provider Family Medicine; PCP Family Medicine; Referring Provider Family Medicine; Visit Provider Family Medicine
DX: I80.9 Phlebitis and thrombophlebitis of unspecified site (principal)
CPT/HCPCS: 93970

== ENCOUNTER → 2019-05-25 10:41 | Outpatient (CLI) | payer MEDICARE, SELFPAY ==
[2018-09-01 09:11] VITALS: BMI 32.1
--- NOTE | 2019-05-25 10:44 | RAD_ITS ---
STUDY: X-RAY - CERVICAL SPINE REASON FOR EXAM: Female, 38 years old. neck pain x 1.5 weeks TECHNIQUE: 4 view(s) of the cervical spine were obtained. COMPARISON: September 01, 2018 FINDINGS: Normal anterior atlantoaxial articulation. Normal odontoid process. Normal cervical lordosis. No evidence for acute fracture or subluxation. Intervertebral disc space heights are well-maintained. Minor endplate spurring at C6-7. The soft tissue structures are unremarkable. No significant change since prior exam RAD/Cerv Spine 2 or 3 Views IMPRESSION: Mild spondylosis. No acute fracture or other significant bony pathology Electronically Signed: Harshad Charles MD at 22:46 EST , Service support ,
[2019-05-25 12:21] LABS: Absolute Lymphocyte Count 1.93 X10^3/uL (0.83-4.51); Absolute Neutrophil Count 3.2 X10^3/uL (2.0-7.7); Basophil# 0.05 X10^3/uL; Basophil% 0.8 % (0-1); Eosinophil# 0.49 X10^3/uL; Hematocrit 45.3 % (37-47); Hemoglobin 14.5 g/dL (12.0-15.0); Lymphocyte # 1.93 X10^3/ul (4.0); Lymphocyte % 31.5 % (19-41); Mean Corpuscular Hgb 26.7 pg (27.0-32.0); Mean Corpuscular Volume 83.3 fL (81-99); Mean Platelet Vol. 10.7 fl (6.2-12.0); Monocyte# 0.45 X10^3/uL; Monocyte% 7.3 % (0-10); NRBC Flagged by Analyzer 0 % (0-5); Neutrophil # 3.18 X10^3/uL (2.7-7.7); Neutrophil % 51.9 % (47-70); Platelet Count 262 K/mm3 (150-450); RBC Distribution Width CV 14.3 % (11.6-14.6); RBC Distribution Width SD 42.8 fl (35.1-43.9); Red Blood Count 5.44 M/mm3 (4.2-5.4); White Blood Count 6.1 K/mm3 (4.4-11.0)
[2019-05-25 12:35] LABS: ALB/GLOB Ratio 0.9 RATIO (0.9-2.4); AST(SGOT) 19 U/L (15-37); Alanine Aminotransfer ALT/SGPT 45 U/L (13-56); Albumin, Serum 3.7 g/dL (3.2-5.0); Alkaline Phosphatase 114 U/L (45-117); Anion Gap 4 (5-15); BUN 11 mg/dL (7-18); BUN/Creat Ratio 11.3 RATIO (10-20); Calcium,Total 8.9 mg/dL (8.5-10.1); Chloride 104 mmol/L (98-107); Cholesterol 235 mg/dL (200); Creatinine, Serum 0.97 mg/dL (0.55-1.02); EST Glomerular Filtration Rate 68 mL/min (>60); Est Glom Filt Rate - Afr Amer 82 mL/min (>60); Globulin 3.9 g/dL (2.2-4.2); Glucose 159 mg/dL (74-106); High Density Lipoprotein 38 mg/dL; Potassium 4.2 mmol/L (3.5-5.1); Protein, Total 7.6 g/dL (6.4-8.2); Sodium Level 136 mmol/L (136-145); Triglycerides 465 mg/dL
[2019-05-25 12:44] LABS: Vitamin D,25 Hydroxy 7.9 ng/mL (29.95-100.01)
== END ==
LOC: MTRAD 10:42
PROVIDERS: PCP Family Medicine; Referring Provider Family Medicine; Visit Provider Family Medicine
DX: M54.2 Cervicalgia (principal); E78.5 Hyperlipidemia, unspecified; E55.9 Vitamin D deficiency, unspecified
CPT/HCPCS: 72040; 80053; 80061; 82306; 85025

== ENCOUNTER → 2019-06-07 13:11 | Outpatient (CLI) | payer MEDICARE, SELFPAY ==
[2018-09-01 09:11] VITALS: BMI 32.1
--- NOTE | 2019-06-07 13:13 | RAD_ITS ---
STUDY: SWALLOWING STUDY REASON FOR EXAM: Female, 38 years old. DYSPHAGIA TECHNIQUE: The examination was performed with Speech Pathology in attendance. Under fluoroscopic observation, the patient ingested thin barium, thick barium, barium pudding, and barium coated cracker. FLUOROSCOPY TIME: 1:14 minutes/seconds. 1416 images were obtained. RADIOLOGIST INVOLVEMENT: Radiologist was present and providing direct supervision. COMPARISON: None. FINDINGS: The following was observed during swallowing of the various mixtures of barium: Thin Barium: There was no evidence of aspiration or laryngeal penetration. Barium Pudding: There was no evidence of aspiration or laryngeal penetration. Barium Coated Cracker: There was no evidence of aspiration or laryngeal penetration. RAD/Swallowing Function w/Video IMPRESSION: Normal tailored barium swallow study. No evidence of increased risk for aspiration. The swallow study findings were discussed with the patient by the speech pathologist at the conclusion of the examination. Please see speech pathology report for more information and recommendations. Electronically Signed: Venancio Peter, at 14:15 EST , Service support ,
--- NOTE | 2019-06-07 13:30 | SP.MBSS_ITS ---
PRIMARY / SECONDARY DIAGNOSIS: dysphagia (R13.10) REFERRING PHYSICIAN: Dr. Jhonny Valladares MD CURRENT DIET: regular textures, thin liquids DENTITION: WFL MENTAL STATUS: WNL RESPIRATORY STATUS: O2 via room air REASON FOR REFERRAL: The Patient is a 38 year old female referred for a modified barium swallow (MBS) study to objectively assess the Patients oropharyngeal swallow function under fluoroscopy secondary to reported persistent globus sensation following consumption of solid textures over the last 6-8 months, somewhat worse over the past few months. MEDICAL HISTORY: Seizure disorder, complex migraine, arteriovenous malformation, hyperlipidemia, obesity, type II diabetes mellitus, rheumatoid arthritis, fibromyalgia. 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 ASSESSMENT PARAMETERS: The Patient participated in a Modified Barium Swallow (MBS) study on 06/07/2019. Dr. Peter was the radiologist present for this evaluation. This study was recorded in the lateral view and images were sent to PACs for storage. Scoring was completed through each trial using the 8-point Penetration-Aspiration Scale (PAS) and summarized via the Videofluoroscopic Dysphagia Scale (VDS) and the Bolus Residue Scale (BRS), with severity scoring through the Dysphagia Severity Rating Scale (DSRS) and the Swallowing Performance Scale (SPS), and recommended diet textures through the International Dysphagia Diet Standardisation Initiative (IDDSI) RESULTS OF THE EVALUATION: The Patient presents with mastication and deglutition abilities found to be grossly within functional limits (DSRS: 1; SPS: 2) OBJECTIVE ASSESSMENT OF SWALLOW FUNCTION (QUANTITATIVE ? PER TRIAL): PENETRATION / ASPIRATION SCALE (ALBERTS): 1 = does not enter airway 2 = enters airway/above vocal folds/ejected 3 = enters airway/above vocal folds/not ejected 4 = enters airway/contacts vocal folds/ejected 5 = enters airway/contacts vocal folds/not ejected 6 = enters airway/below vocal folds/ejected 7 = enters airway/below vocal folds/not ejected despite effort 8 = enters airway/below vocal folds/no effort PENETRATION / ASPIRATION SCALE (SCORE): Thin liquid - 5 mL tsp.: 1 Thin liquids via cup (single sip): 2 Thin liquids via cup (single sip): 2 Thin liquids via cup (single sip): 1 Thin liquids via straw (sequential swallows): 1 Pudding via spoon: 1 Regular textured cookie: 1 Thin liquids via straw: 1 Thin liquids via straw: 1 OBJECTIVE ASSESSMENT OF SWALLOW FUNCTION (QUANTITATIVE ? AGGREGATE): VIDEOFLOROSCOPIC DYSPHAGIA SCALE (VDS): LIP CLOSURE: 0 (of 4) Intact BOLUS FORMATION: 0 (of 6) Intact MASTICATION: 0 (of 8) Intact APRAXIA: 0 (of 4.5) None TONGUE TO PALATE CONTACT: 0 (of 10) Intact PREMATURE BOLUS LOSS: 0 (of 4.5) None ORAL TRANSIT TIME: 0 (of 3) < 1.5s TRIGGERING OF PHARYNGEAL SWALLOW: 0 (of 4.5) Normal VALLECULAR RESIDUE: 2 (of 6) <10% LARYNGEAL ELEVATION: 0 (of 9) Normal PYRIFORM SINUS RESIDUE: 0 (of 13.5) None COATING OF PHARYNGEAL WALL: 0 (of 9) No PHARYNGEAL TRANSIT TIME: 0 (of 6) <1.0s ASPIRATION: 6 (of 12) Supraglottic penetration BOLUS RESIDUE SCALE (BRS): 2 (of 6) residue in valleculae OBJECTIVE ASSESSMENT OF SWALLOW FUNCTION (SEVERITY GRADING): DYSPHAGIA SEVERITY RATING SCALE (DSRS): 1 (within functional limits) SWALLOWING PERFORMANCE SCALE (SPS): 2 (within functional limits) OBJECTIVE ASSESSMENT OF SWALLOW FUNCTION (QUALITATIVE): ORAL PREPARATORY PHASE: competent bolus manipulation with intermittent fragmented swallowing (piecemeal deglutition) during trials of solid textures; sufficient anterior oral containment during oral manipulation; preserved management of breathing / bolus formation without disrupted E ? S ? E pattern ORAL TRANSITIONAL PHASE: sufficient bolus transportation; no bolus consolidation impairments; sufficient oral containment across textures; no presence of premature posterior bolus loss PHARYNGEAL PHASE: transient mild pharyngeal phase dyssynchrony resulting in suboptimal bolus location during pharyngeal phase onset contributing to transient prandial penetration event; appropriate hyolaryngeal excursion and laryngeal vestibule closure / pressure; sufficient / consistent laryngeal vestibule pressure generated to expel penetrated material; no signs of pharyngeal dysmotility; no signs of velopharyngeal impairments. ESOPHAGEAL PHASE: no obvious esophageal phase abnormalities observed. DYSPHAGIA ASSOCIATED MEDICAL CONSIDERATIONS / INTERVENTION CONSIDERATIONS: Would consider further referral for esophageal workup (considerations for gastroenterology referral) due to the symptoms described above by the Patient if symptomology persists. INTERVENTION RECOMMENDATIONS AND CONSIDERATIONS: No further skilled speech-language services warranted at this time targeting dysphagia. POST ASSESSMENT EDUCATION: Results and recommendations were discussed with the Patient immediately following MBS completion, with the Patient verbalizing understanding and agreement with all recommendations and education provided. I provided brief overview of signs and symptoms of aspiration, with recommendations for the Patient to further discuss symptoms with the Patients primary care provider. DIET TEXTURE RECOMMENDATIONS: Will recommend a regular textured (IDDSI: 7), thin liquid diet (IDDSI: 0) diet RECOMMENDED COMPENSATORY STRATEGIES: Reduced bolus volume / rate of ingestion, seated upright at 90 degrees during PO intake, remain upright for 30-60 minutes post meal (GERD precaution), medications one at a time with a liquid chaser. IMAGE COUNT: [id number] Rudolph Tinoco M.A., [employer]EARLY HEAD START TEACHER, CBIS MBSImP Certified, LSVT Certified [facility] Speech-Language Pathology Department [email or web address]
== END ==
LOC: RAD 13:12
PROVIDERS: Family Provider Family Medicine; PCP Family Medicine; Referring Provider Family Medicine; Visit Provider Family Medicine
DX: R13.10 Dysphagia, unspecified (principal)
CPT/HCPCS: 74230; 92611

== ENCOUNTER 2019-08-20 21:58 | Inpatient (IN) | payer MEDICARE, MEDICAID, SELFPAY ==
[2018-09-01 09:11] VITALS: BMI 32.1
[2019-08-20] VITALS (7 sets, daily range): BP systolic 88–139; BP diastolic 53–92; PULSE 79–85; RESP 14–17; TEMP 37; O2SAT 94–96; BMI 37.5
--- NOTE | 2019-08-20 21:59 | CT_ITS ---
We are attempting to reach an attending provider to discuss findings. An addendum with communication details will be sent when the communication is complete. STUDY: CT BRAIN WITHOUT CONTRAST REASON FOR EXAM: Female, 38 years old. Right hemiparesis and aphasia. TECHNIQUE: Transaxial CT imaging of the brain was performed without administration of intravenous contrast material. Individualized dose optimization techniques were used for this CT. COMPARISON: CT brain 12/14/2018. MRI brain 12/15/2018. FINDINGS: No evidence of intracranial hemorrhage, mass, infarct or hydrocephalus. No skull fracture. Visualized paranasal sinuses and mastoid air cells patent. Visualized extracranial soft tissues unremarkable. ASPECTS 10 out of 10. 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 CT/Brain/Head without Contrast IMPRESSION: No acute findings. Electronically Signed: Giancarlo Schofield, at 22:17 EDT Tel , Service support ,
--- NOTE | 2019-08-20 21:59 | EKG12_ITS ---
Test Reason : NEURO Blood Pressure : / mmHG Vent. Rate : 080 BPM Atrial Rate : 080 BPM P-R Int : 136 ms QRS Dur : 080 ms QT Int : 384 ms P-R-T Axes : 057 018 025 degrees QTc Int : 442 ms Normal sinus rhythm Normal ECG Confirmed by STACI DONALDSON MD ([id number]), sound editor ALEKSANDAR ZAMBRANO ([id number]) on 08/21/2019 11:13:57 AM Referred By: BB Confirmed By:STACI DONALDSON MD
--- NOTE | 2019-08-20 22:01 | ED.DCSUM_ITS ---
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 Details/history is unknown other than what EMS provides. Blood sugar 350, patient is a type II diabetic. They state she had an TIA relatively recently. He also states that she had obtained TPA for similar symptoms in the past. - Past Medical History (1) Upper GI bleed Status: Suspected (2) AVM (arteriovenous malformation) brain Status: Chronic (3) HLD (hyperlipidemia) Status: Chronic (4) Obesity Status: Chronic (5) Seizure disorder Status: Chronic (6) Type II diabetes mellitus Status: Chronic (7) Right sided weakness Status: Suspected Past Medical History - Allergies and Home Meds Allergies/Adverse Reactions: Allergies Sulfa (Sulfonamide Antibiotics) Allergy (Intermediate, Verified 08/14/18 10:50) Hives Iodinated Contrast Media Allergy (Mild, Verified 08/14/18 10:50) Rash uncontrollable itching nortriptyline Adverse Reaction (Severe, Verified 08/14/18 10:50) Other lowered blood sugar, caused irregular hear rythym metformin Adverse Reaction (Intermediate, Verified 08/14/18 10:50) Diarrhea morphine Adverse Reaction (Verified 08/14/18 10:50) Itching Surgical History: cholecystectomy, hysterectomy, - - Embolization of vein in the uterus Smoking Status: Former smoker - Family History Maternal Family History: Reports: - - Rheumatoid arthritis Paternal Family History: Reports: No pertinent history Review of Systems ROS: Unable to Obtain - aphasic, lethargic STROKE Inital Vital Signs reviewed: Yes - NIHSS Initial 1a Level of Consciousness: 1 1b LOC Questions (Score 2 if aphasic/stupor): 2 1c LOC Commands (Only score 1st attempt): 0 2 Best Gaze (If aphasic, use reflexive mvmts.): 0 3 Visual: 0 4 Facial Palsy: 1 5 Motor Arm Right (UN = amputation/fusion): 4 5 Motor Arm Left: 0 6 Motor Leg Right: 4 6 Motor Leg Left: 0 7 Limb ataxia (Only + if out of proportion): 0 8 Sensory (Aphasia/stupor=0 or 1, coma=2): 1 9 Best Language: 2 10 Dysarthria (mute, coma=2, intubated=UN): 2 11 Extinction and Inattention (only scored if +): 0 Total Score: 17 General: Well nourished, Well developed, Obese, - - lethargic, NAD Head: Normocephalic, Atraumatic Eyes: Perrl, EOMI - w/o forced deviation ENT: Moist mucous membranes, No rhinorrhea Neck: Supple, Nontender Cardiovascular: Regular rate, Regular rhythm, No murmurs. Negative for: Tach ycardia Respiratory: No distress, CTA bilaterally, Chest nontender Abdomen: Soft, Nontender, Nondistended, Normal bowel sounds Extremities: Nontender, No edema Skin: Normal color, No rash, No Trauma Neurological: Lethargic, Right side facial droop, - - aphasic/mute. follows commands. Diagnostic/Tx/Re-eval Impressions Brain CT 08/20/19 21:59 IMPRESSION: No acute findings. Electronically Signed: Giancarlo Schofield at 22:17 EDT Tel , Service support , ADDENDUM: 08/20/19 2225 IMPRESSION: No acute findings. N.B. : The above information has been verbally conveyed by Giancarlo Schofield to Dr. Nuha MD, on 08/20/2019 22:18:23 (ET). Electronically Signed: Giancarlo Schofield at 22:17 EDT Tel , Service support , Head/Neck CTA 08/20/19 22:29 IMPRESSION: No significant arterial narrowing in the head or neck. Electronically Signed: Giancarlo Schofield at 23:06 EDT Tel , Service support , Chest X-Ray 08/20/19 22:40 IMPRESSION: Mild retrocardiac opacity could represent atelectasis secondary to low lung volumes or mild pneumonia or edema. Electronically Signed: Giancarlo Schofield, at 22:55 EDT Tel , Service support , 08/20/19 21:59 Brain/Head without Contrast [CT] Stat 08/20/19 22:29 CTA Head AND Neck W/ Contrast [CT] Stat 08/20/19 22:40 Chest 1 View [RAD] Stat Laboratory Results 08/20/19 08/20/19 08/20/19 22:21 22:21 22:21 WBC 7.0 RBC 5.06 Hgb 13.4 Hct 41.4 MCV 81.8 MCH 26.5 L MCHC 32.4 RDW Std Deviation 42.4 RDW Coeff of Quentin 14.6 Plt Count 223 MPV 9.9 Immature Gran % (Auto) 1.000 H Neut % (Auto) 44.7 L Lymph % (Auto) 37.8 [place] % (Auto) 7.4 Eos % (Auto) 8.4 H Baso % (Auto) 0.7 Absolute Neuts (auto) 3.1 Absolute Lymphs (auto) 2.64 Nucleated RBC % 0 PT 11.6 L INR 0.9 APTT 25.4 Sodium 137 Potassium 3.6 Chloride 106 Carbon Dioxide 24.0 Anion Gap 7 BUN 16 Creatinine 0.98 Estim Creat Clear Calc 73.58 Est GFR (MDRD) Af Amer 81 Est GFR (MDRD) Non-Af 67 BUN/Creatinine Ratio 16.2 Glucose 314 H Calcium 8.8 Troponin I < 0.015 - Rhythm Strip Rhythm Strip: Sinus Rhythm Rate: 80 Ectopy: None - EKG Initial EKG Interpretation: Sinus Rhythm, No Acute Injury Pattern Prior: Unchanged - Medical Decision Making Stroke Team Activated: Yes - prehospital Reviewed Inclusion/Exclusion criteria: Yes - See discussion below Was Patient considered for Endovascular Intervention?: No - Negative CTA for LVO IV Alteplase (t-PA) Administered: Yes No contraindications for IV Alteplase (t-PA) administration.: Yes - see below Alteplase (t-PA) risks, benefits, alternative discussed: Yes - discussed w/ mother, who is in agreeement w/ me and neurologist Direct to CT on EMS cot after I personally evaluated the patient along with intact airway confirmed. 2214 - Called by radiologist w/ neg head CT report; nothing acute. Patient is a TPA candidate, she has no contraindications with the exception of t he possibility of a cerebral AVM. For an unknown reason she has this already listed in her past medical history in the EMR. However she has not been here in 1 year, and last year when she had an MRI brain it was negative. There is no MRA. She had a CT angiogram of the head and neck the year before that that was negative. I discussed all this with stroke neurology with [facility], we also reviewed the fact that she has a documented contrast media allergy. In the EMR documentation, the allergy is mild/hives. Therefore he recommends getting super stat CTA angiogram of the head and neck, pretreated with Benadryl and Solu- Medrol which was done, given that the benefits of the exam over rule the potential risks. He confirms that if the CT angiogram is negative for AVM, then TPA should be given. I already had ordered it, and I discussed with pharmacy prior to mixing it to hold off until we confirmed or just confirm this, then confirmed that they could have it mixed so that we could give it immediately upon CT angiography resulting negative and if her reexamination confirms that she is still a candidate for tPA. 2248 --discussed with mother over the phone. Patient texted her mother at 2022, just after the symptoms started. She lives in an apartment on their property, behind their house, she had just walked over there after having had dessert after dinner with her family. Therefore, I am using 2019 as the time of onset. 5 weeks ago, mother states she had the same symptoms she was at [facility] in [place], she received TPA and then was transferred to [facility], where they did no intervention but ran some tests and monitored her. She does not know the results of those tests. She had a definite stroke at age 28, which placed the patient on disability since. She has a history of seizures, it is not tonic-clonic/grand mal but not petit mall, she does not know the details but states that it does not present with the symptoms, right hemiparesis and aphasia. With regards to AVM, she confirms that she was told the patient had an AVM behind her left eye that can occasionally swell and give her headaches, she does not know the test that she had that confirm that but she thinks it was an angiogram, she states it was here at this hospital, by a Dr. Nguyen. That is not someone who has worked at this hospital anytime recently, and with all of the imaging on her records right now, there is no finding of an AVM in her brain on any of cerebral angiography or MRIs. There are no MRAs. She confirms that she got TPA 5 weeks ago, and it made her better, she had no complications from it. 2302 -- CTA performed. Results pending at this time. 2313 -- without receiving a call from neurologist, I refreshed the PACS system, CT angiography result is present. It is negative and specifically states there is no angiographic evidence of an AVM. tPA is at the bedside, I had the executive legal secretary page the [facility] neurologist that again, discussed with him the above information and the patient's current status after reexamined her, she is improved slightly. She is able to try to resist gravity with her right lower extremity although she cannot, and she is able to wiggle her fingers with her right upper extremity, and barely able to speak, moaning one-word answers to questions. She confirms that her symptoms resolved with TPA 5 weeks ago. She confirms that her seizures do not present with the symptoms. The neurologist confirms to start tPA which I immediately relayed to nursing. Neurologist to video-in at the bedside for further evaluation. Discussed with Dr. Hernandez for admission. Will admit to ICU. Patient currently having no rash or obvious side effects from IV contrast dye. There were definite delays here related to trying to ascertain whether the patient truly currently has a cerebral AVM or not, given that it is a contraindication to IV TPA. Critical care time (excluding procedures): 30-74 minutes - 35 minutes including time spent discussing with patient, consultants, arranging admission, and performing direct patient care/reevaluation at the bedside ED Disposition - Plan for ED Patient: Disposition: [facility] Diagnosis: Acute ischemic stroke
--- NOTE | 2019-08-20 22:29 | CT_ITS ---
STUDY: CTA HEAD AND NECK WITH CONTRAST REASON FOR EXAM: Female, 38 years old. Right arm weakness. RADIATION DOSAGE (If Supplied By Facility): CTDIvol = ( 18.70 ) mGy, DLP = ( 670.66 ) mGycm TECHNIQUE: CT angiography was performed with a multi-detector CT scanner. Data acquisition was obtained from the skull base through the vertex following intravenous administration of 100 ISOVUE 370. with MIP and 3D reconstructed images. Individualized dose optimization techniques were used for this CT. COMPARISON: CT brain without contrast earlier same date. FINDINGS: ICA narrowing is measured per NASCET criteria. CTA NECK: Aortic arch: Left-sided 3 vessel aortic arch with no significant narrowing of the great vessel origins or subclavian arteries. Right carotids: Right CCA: No significant narrowing or dissection. Right ICA: No significant narrowing or dissection. Right ECA: No significant narrowing or dissection. Left carotids Left CCA:No significant narrowing or dissection. Left ICA: No significant narrowing or dissection. Left ECA: No significant narrowing or dissection. Vertebrals: Right dominant. No significant narrowing, no dissection. CTA HEAD: Intracranial carotids:Normal course and caliber. MCAs:Normal branching pattern. No significant stenosis. ACAs:Normal branching pattern. No significant stenosis. Basilar:Normal caliber. No aneurysm. music intern:No significant narrowing. The right is fed by a prominent, patent posterior communicating artery. The left is fed by the P1 segment. Patent bilateral posterior and anterior inferior and superior cerebellar arteries are identified. No evidence of AVM or aneurysm. No intracranial DVT. Nonvascular structures: No acute findings. CT/CTA Head AND Neck W/ Contrast IMPRESSION: No significant arterial narrowing in the head or neck. Electronically Signed: Giancarlo Schofield, at 23:06 EDT Tel , Service support ,
[2019-08-20] MEDS: DiphenhydrAMINE 50 MG/ML Syringe 25 MG IV (22:32)
[2019-08-20] MEDS: MethylPREDNISolone 125 MG/2 ML Vial IV (22:32)
[2019-08-20 22:33] LABS: Absolute Lymphocyte Count 2.64 X10^3/uL (0.83-4.51); Absolute Neutrophil Count 3.1 X10^3/uL (2.0-7.7); Basophil# 0.05 X10^3/uL; Basophil% 0.7 % (0-1); Eosinophil# 0.59 X10^3/uL; Eosinophils% 8.4 % (0-5); Hematocrit 41.4 % (37-47); Hemoglobin 13.4 g/dL (12.0-15.0); Lymphocyte # 2.64 X10^3/ul (4.0); Lymphocyte % 37.8 % (19-41); Mean Corp Hgb Conc 32.4 g/dL (32-36); Mean Corpuscular Hgb 26.5 pg (27.0-32.0); Mean Corpuscular Volume 81.8 fL (81-99); Mean Platelet Vol. 9.9 fl (6.2-12.0); Monocyte# 0.52 X10^3/uL; Monocyte% 7.4 % (0-10); NRBC Flagged by Analyzer 0 % (0-5); Neutrophil # 3.12 X10^3/uL (2.7-7.7); Neutrophil % 44.7 % (47-70); Platelet Count 223 K/mm3 (150-450); RBC Distribution Width CV 14.6 % (11.6-14.6); RBC Distribution Width SD 42.4 fl (35.1-43.9); Red Blood Count 5.06 M/mm3 (4.2-5.4)
[2019-08-20] MEDS: 0.9% Normal Saline 1,000 ML 100 ML IV (22:35)
[2019-08-20 22:38] LABS: International Normalized Ratio 0.9; Partial Thromboplast Time 25.4 Seconds (24.1-36.2); Prothrombin Time (Protime)PT. 11.6 SECONDS (11.7-14.9)
--- NOTE | 2019-08-20 22:40 | RAD_ITS ---
STUDY: X-RAY CHEST REASON FOR EXAM: Female, 38 years old. Right hemiparesis. TECHNIQUE: AP portable upright COMPARISON: 08/14/2018 CXR FINDINGS: Low lung volumes with mild retrocardiac opacity. No apparent pneumothorax or pleural effusion. Electronic device overlies the left midlung. Heart size normal. No concerning mediastinal or hilar lesions. No acute osseous abnormality. No evidence of free air under the diaphragm. RAD/Chest 1 View IMPRESSION: Mild retrocardiac opacity could represent atelectasis secondary to low lung volumes or mild pneumonia or edema. Electronically Signed: Giancarlo Schofield, at 22:55 EDT Tel , Service support ,
[2019-08-20 22:46] LABS: Anion Gap 7 (5-15); BUN 16 mg/dL (7-18); BUN/Creat Ratio 16.2 RATIO (10-20); Calcium,Total 8.8 mg/dL (8.5-10.1); Chloride 106 mmol/L (98-107); Creatinine, Serum 0.98 mg/dL (0.55-1.02); EST Glomerular Filtration Rate 67 mL/min (>60); Est Glom Filt Rate - Afr Amer 81 mL/min (>60); Estimated Creatinine Clearance 73.58 ml/min; Glucose 314 mg/dL (74-106); Potassium 3.6 mmol/L (3.5-5.1); Sodium Level 137 mmol/L (136-145)
--- NOTE | 2019-08-20 22:50 | ED.RN ---
Dwayne ALFONSO TO HOLD ON TPA UNTIL RESULTS OF CTA.
--- NOTE | 2019-08-20 23:20 | HP.PCM_ITS ---
Problem List (1) Right hemiparesis Status: Acute Comment: Lower suspicion CVA, possible complex migraine versus conversion versus malingering (2) HTN (hypertension) Status: Chronic Qualifiers: Hypertension type: essential hypertension Qualified Code(s): I10 - Essential (primary) hypertension (3) HLD (hyperlipidemia) Status: Chronic Qualifiers: Hyperlipidemia type: unspecified Qualified Code(s): E78.5 - Hyperlipidemia, unspecified (4) Obesity Status: Chronic (5) Seizure disorder Status: Chronic (6) Type II diabetes mellitus Status: Chronic Qualifiers: Diabetes mellitus longterm insulin use: without hammersmith helper use Diabetes mellitus complication status: with other specified complication Qualified Co de(s): E11.69 - Type 2 diabetes mellitus with other specified complication History of Present Illness Date of Admission: 08/20/19 Chief Complaint: R sided hemiparesis The patient is a 38 y/o F w/ PMHx: Hx Brain AVM, GERD w/ Hx GI Bleed, Obesity, HTN, HLD, Seizure disorder (Epilepsy), 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 Patient notes that she had been in bed when she noted the onset. She states that recently at [facility] her work-up had been unremarkable with an unremarkable MRI and they told her she had a TIA. Work-up in the ED included T 98.6, heart rate 79, BP 135/86, respiratory rate 17, 95% room air, CBC with WC 7, hemoglobin 13.4, platelet 223 with no significant left shift noted, coags with PT 11.6, INR 0.9, PTT 25.4, unremarkable BMP aside glucose 314, troponin less than 0.015, EKG with sinus rhythm with no acute evidence of ischemia, CT head with no acute intracranial findings, chest x-ray with mild retrocardiac opacity possibly atelectasis secondary to low lung volume. ED physician initiated stroke alert and [facility] neurology was contacted and lengthy discussion pursued given history of possible cerebral AVM however most recent MRI available 1 year prior was unremarkable with no evidence of AVM at that time and questionable contrast allergy therefore per neurology [facility] recommendations recommended pretreatment with Benadryl and Solu-Medrol and stat CTA head and neck and if unremarkable for AVM then TPA should be administered. CTA head and neck with no acute findings therefore TPA administration plan initiated. LA stroke scale prior to evaluation noted to be 8. Past Medical History Past Medical History (Chronic Problems): Chronic Problems AVM (arteriovenous malformation) brain (Chronic) HTN (hypertension) (Chronic) Seizure disorder (Chronic) Obesity (Chronic) HLD (hyperlipidemia) (Chronic) Type II diabetes mellitus (Chronic) Allergies Sulfa (Sulfonamide Antibiotics) Allergy (Intermediate, Verified 08/14/18 10:50) Hives Iodinated Contrast Media Allergy (Mild, Verified 08/14/18 10:50) Rash uncontrollable itching nortriptyline Adverse Reaction (Severe, Verified 08/14/18 10:50) Other lowered blood sugar, caused irregular hear rythym metformin Adverse Reaction (Intermediate, Verified 08/14/18 10:50) Diarrhea morphine Adverse Reaction (Verified 08/14/18 10:50) Itching Home Medications: Ambulatory Orders Medication Instructions Recorded Liraglutide [Victoza 2-Ebn] 1.8 units SQ DAILY 09/20/15 Topiramate [Topamax] 100 mg PO QHS 09/20/15 Topiramate [Topamax] 50 mg PO BREAKFAST 07/02/16 Gabapentin [Neurontin] 300 mg PO TIDCM 05/10/17 traMADol [Ultram] 100 mg PO BID 05/10/17 Naproxen [Naprosyn] 500 mg PO BID PRN PRN #20 tablet 08/01/18 Acetaminophen with Codeine 1 tab PO Q6H PRN PRN 08/14/18 [Acetaminophen-Cod #3 Tablet] Empagliflozin [Jardiance] 25 mg PO DAILY 08/14/18 Surgical History: cholecystectomy, hysterectomy, - - Embolization of vein in the uterus Psychiatric History: Anxiety, Depression GARMENT EXAMINER History: No pertinent GARMENT EXAMINER history Lives: Alone Smoking Status: Never smoker Tobacco Use: Non-smoker Alcohol: None Drugs: None - *Family History Paternal History Items: - - GERD Maternal History Items: - - Rheumatoid arthritis Review of Systems Constitutional: Reports: Malaise, Weakness, Fatigue. Denies: Anorexia, Chills, Fever, Weight Change HEENT: Denies: Head Aches, Sinus Congestion, Sinus Drainage Cardiovascular: Denies: Chest Pain, Palpitations Respiratory: Denies: Cough, Shortness of breath at rest, Sputum production Gastrointestinal: Denies: Abdominal Pain, Nausea, Vomiting Genitourinary: Denies: Dysuria Musculoskeletal: Reports: Back Pain, Joint Pain. Denies: Joint Tenderness Skin: Denies: Rash, Wounds Neurological: Reports: Change in Speech, Confusion, Focal weakness. Denies: Numbness, Tingling Psychiatric: Reports: Anxiety, Depression. Denies: Homicidal Ideations, Suicidal Ideations Hematologic/ Lymphatic: Denies: Easy Bruising, Easy Bleeding VTE Information - Inpt Only VTE Present on Admission: No VTE Mechan Device Prophylaxis: SCD's VTE Pharm Prophylaxis ordered?: No Reason prophylaxis not ordered:: Medical Contraindication Patient Problems: Active and Suspected Problems Acute ischemic stroke (Acute) Right hemiparesis (Acute) Lower suspicion CVA, possible complex migraine versus conversion versus malingering Subjective: Seated upright in the ED bed, fatigued but no acute distress. Objective: Physical Examination: General: awake, alert, oriented x 3 and cooperative, seated upright in the ED bed, fatigued but in no apparent distress. Skin: normal color, turgor, no icterus, cyanosis. HEENT: AT/NC, EOMI, PERRLA, MMM, no carotid bruits or JVD noted. Lungs: CTA bilaterally, moderate effort, mild decrease BL bases, no rales, ronchi or wheezing. Heart: Regular rate and rhythm; no gallop, rub audible. Abdomen: soft, obese, NTTP, ND, normal BS, no HSM. Extremities: no cyanosis, clubbing, or edema. Neurological: patient awake, alert, oriented as noted; cognitive function appears baseline intact; pupils equally reactive to light and accomodation; cranial nerves II-XII grossly normal, right-sided hemiparesis with patient inability to lift the right upper extremity or lower extremity, negative Babinski, unable to perform [id number] and [id number] with the right lower extremity, sensation intact, with arm drop toward face she does shift to the right upper extremity, bilateral equal strength with push down attempt to bilateral lower extremities and initial bilateral equal strength with hold in place evaluation thus some concerns for conversion of malingering. Psychiatric: affect appears fatigued, no acute evidence of depressive or anxiety feelings. - Physical Exam Vitals/I&O's: Vital Signs Temp Pulse Resp BP Pulse Ox 98.6 F 82 16 127/78 H 95 08/20/19 22:09 08/20/19 23:00 08/20/19 23:00 08/20/19 23:00 08/20/19 23:00 Oxygen Delivery Method Room Air Weight: 232 lb 9.403 oz Body Mass Index (BMI) 37.5 Finger Stick Blood Glucose 358 Laboratory Results 08/20/19 22:21: WBC 7.0, RBC 5.06, Hgb 13.4, Hct 41.4, MCV 81.8, MCH 26.5 L, MCHC 32.4, RDW Std Deviation 42.4, RDW Coeff of Quentin 14.6, Plt Count 223, MPV 9.9, Immature Gran % (Auto) 1.000 H, Neut % (Auto) 44.7 L, Lymph % (Auto) 37.8, [place] % (Auto) 7.4, Eos % (Auto) 8.4 H, Baso % (Auto) 0.7, Absolute Neuts (auto) 3.1, Absolute Lymphs (auto) 2.64, Nucleated RBC % 0 08/20/19 22:21: PT 11.6 L, INR 0.9, APTT 25.4 08/20/19 22:21: Sodium 137, Potassium 3.6, Chloride 106, Carbon Dioxide 24.0, Anion Gap 7, BUN 16, Creatinine 0.98, Estim Creat Clear Calc 73.58, Est GFR (MDRD) Af Amer 81, Est GFR (MDRD) Non-Af 67, BUN/Creatinine Ratio 16.2, Glucose 314 H, Calcium 8.8, Troponin I < 0.015 Current Medications Acetaminophen (Tylenol) 650 mg PO .X1 PRN PRN Reason: Temp > 99.6 F Diphenhydramine HCl (Benadryl) 50 mg IV .X1 PRN PRN Reason: Allergic Reaction Stop: 08/22/19 22:16 Epinephrine HCl () 0.3 mg IM .X1 PRN PRN Reason: Allergic Reaction Stop: 08/22/19 22:16 Sodium Chloride () 1,000 mls @ 100 mls/hr IV .Q10H [facility] Last Admin: 08/20/19 22:35 Dose: 100 mls/hr Documented by: Famotidine 20 mg/ Sodium (Chloride) 10 mls @ 300 mls/hr IV .X1 PRN PRN Reason: Allergic Reaction Stop: 08/22/19 22:16 Nicardipine/Dextrose (Cardene-Dex 20 Mg/200 Ml Soln) 20 mg in 200 mls @ 50 mls/hr IV .Q4H PRN; Protocol PRN Reason: See Instructions Alteplase, Recombinant 81 mg/ (N/A) 0 mls @ 0 mls/hr IV X1 ONE Stop: 08/20/19 23:29 Sodium Chloride 1,000 ml/ N/A 1,000 mls @ 105.5 mls/hr IV .Q9H29M KOBY Stop: 08/21/19 22:31 Labetalol HCl (Trandate) 20 mg IV X1 PRN PRN Reason: BLOOD PRESSURE Labetalol HCl (Trandate) 20 mg IV X1 PRN PRN Reason: BLOOD PRESSURE Methylprednisolone (Solu-Medrol) 125 mg IV .X1 PRN PRN Reason: Allergic Reaction Stop: 08/22/19 22:16 Assessment/Plan All Active Problems Acute ischemic stroke (Acute) Right hemiparesis (Acute) The patient is a 38 y/o F w/ PMHx: Hx Brain AVM, GERD w/ Hx GI Bleed, Obesity, HTN, HLD, Seizure disorder (Epilepsy), Diabetes mellitus type II with neuropathy, Hx TIA although from record review per neurology suspect secondary to complex migraine versus conversion, Hx Hepatitis A, Chronic back pain/Rheumatoid Arthritis/Fibromyalgia who presents to the [facility] ED on 08/20/19 with history of sudden onset right-sided hemiparesis with inability to walk including upper and lower extremity in addition to expressive aphasia ap proximately 1 hour prior to ED arrival with no recent headache, light or sound sensitivities with history of similar symptoms in the past with TPA administration prior approximately 5 weeks prior to current presentation. 1. Right-sided hemiparesis, aphasia concerning for CVA, gated by prior history of similar with prior concern for complex migraine versus conversion versus malingering: Will admit to the ICU given TPA administration, will plan CT Head or if able MRI 24 hours following TPA administration, will defer ECHO as likely recently performed at [facility] given recent transfer following TPA 5 weeks prior to current presentation records requested, PT/OT/Speech/Nutrition evaluation per protocol. [facility] neurology consulted upon stroke alert and will continue their recommendations with need for repeat evaluation on 08/21/2019. Will allow permissive HTN, hold aspirin therapy given TPA administration with repeat CT head in 24 hours and if no concern for bleeding then initiation of ant iplatelet therapy, add statin therapy with AM FLP, fall precautions, magnesium, TSH, hemoglobin A1c levels also requested. Several previous visits with similar presentation and patient has previously been seen on camera moving the right side when staff are perceived per her to not be present including most recent admission 08/2018 with at that time recommendation for follow-up with behavioral health which she refused. Will request records from [facility] where patient was recently transferred to following TPA at [facility] approximately 5 weeks prior. Will plan ICU physician consultation given planned ICU admission. 2. Diabetes mellitus type 2 with neuropathy, uncontrolled with hyperglycemia: Admission glucose significantly elevated, will obtain hemoglobin A1c as most recent noted 08/15/2018 9.5%, place on low dose BID lantus pending level given notable hyperglycemia, will request nutrition consultation for education and teaching, will continue patient home Neurontin, hold Victoza, maintain on insulin sliding scale with Accu-Cheks. 3. ? 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 Repeat CTA head neck on current presentation unremarkable. 4. ? Hypertension: Noted history prior, BP appropriate upon ED presentation, continue to monitor, permissive currently as noted. 5. Hyperlipidemia: Not on regimen, add high-dose statin given acute presentation, FLP in AM. 6. Epilepsy/seizure disorder: We will continue patient home Topamax regimen. 7. Obesity: Weight loss and lifestyle changes encouraged, nutrition consulted. 8. GERD: We will maintain on famotidine. 9. DVT prophylaxis: SCDs, defer chemoprophylaxis given TPA usage as noted #1. Inpatient E&M: 39340 Init Hosp L3
--- NOTE | 2019-08-20 23:28 | ED.RN ---
2315: V.Daniele HERNADEZ TO GIVE TPA PER MD ALFONSO
[2019-08-21] VITALS (45 sets, daily range): BP systolic 72–140; BP diastolic 39–91; PULSE 69–99; RESP 12–23; TEMP 36.6–37.1; O2SAT 91–97; BMI 36.0
[2019-08-21 01:11] LABS: Magnesium 1.6 mg/dL (1.6-2.6); Thyroid Stim Hormone (TSH) 2.71 uIU/mL (0.358-3.74)
[2019-08-21] MEDS: 0.9% Normal Saline 1,000 ML 100 ML IV ×3 (01:18→21:37)
[2019-08-21 01:29] LABS: Hemoglobin A1c 8.4 % (4.2-6.3)
[2019-08-21 01:41] LABS: Bedside Glucose 333 mg/dL (70-110)
[2019-08-21 04:42] LABS: Absolute Lymphocyte Count 1.14 X10^3/uL (0.83-4.51); Basophil# 0.04 X10^3/uL; Basophil% 0.7 % (0-1); Eosinophil# 0.13 X10^3/uL; Eosinophils% 2.4 % (0-5); Hematocrit 42.7 % (37-47); Hemoglobin 13.6 g/dL (12.0-15.0); Lymphocyte # 1.14 X10^3/ul (4.0); Lymphocyte % 20.8 % (19-41); Mean Corp Hgb Conc 31.9 g/dL (32-36); Mean Corpuscular Hgb 26.7 pg (27.0-32.0); Mean Corpuscular Volume 83.7 fL (81-99); Mean Platelet Vol. 10.2 fl (6.2-12.0); Monocyte% 1.8 % (0-10); NRBC Flagged by Analyzer 0 % (0-5); Neutrophil % 73.2 % (47-70); Platelet Count 203 K/mm3 (150-450); RBC Distribution Width CV 14.3 % (11.6-14.6); RBC Distribution Width SD 43.5 fl (35.1-43.9); White Blood Count 5.5 K/mm3 (4.4-11.0)
[2019-08-21 04:45] LABS: Anion Gap 10 (5-15); BUN 21 mg/dL (7-18); BUN/Creat Ratio 19.8 RATIO (10-20); Calcium,Total 8.6 mg/dL (8.5-10.1); Chloride 107 mmol/L (98-107); Cholesterol 208 mg/dL (200); Creatinine, Serum 1.06 mg/dL (0.55-1.02); EST Glomerular Filtration Rate 62 mL/min (>60); Est Glom Filt Rate - Afr Amer 75 mL/min (>60); Estimated Creatinine Clearance 68.03 ml/min; Glucose 395 mg/dL (74-106); High Density Lipoprotein 42 mg/dL; Potassium 4.3 mmol/L (3.5-5.1); Sodium Level 138 mmol/L (136-145); Triglycerides 170 mg/dL; Very Low Density Lipoprotein 34 mg/dL (5-40)
--- NOTE | 2019-08-21 06:34 | ECHOD_ITS ---
Reason For Study: CVA S/P TPA Procedure This was a 2D Doppler, Color Flow transthoracic echocardiogram. Exam performed portable in ICU/CCU. Left Ventricle Normal LV size. Left ventricular systolic function is normal. The estimated ejection fraction is 60 %. Normal diastology for age. No regional wall motion abnormalities noted. Right Ventricle Normal RV size. Normal systolic function. Atria Normal left atrium. Normal right atrium. Mitral Valve Normal mitral valve. Tricuspid Valve Normal tricuspid valve. Aortic Valve Normal aortic valve. Trisinus/trileaflet aortic valve. Pulmonic Valve Normal pulmonic valve. Great Vessels Normal aortic root. The pulmonary artery is normal size. Normal inferior vena cava. Pericardium/Pleural No pericardial effusion. MMode/2D Measurements & Calculations LVIDd: 4.2 cm IVSd: 0.99 cm Ao root diam: 2.8 cm LVIDs: 2.4 cm LVPWd: 0.99 cm RVDd: 3.1 cm FS: 42.1 % LAV(MOD-bp): 41.5 ml LA A4 area: 15.9 cm2 LA dimension(2D): 3.1 cm LAV(MOD-bp) Indexed: 19.8 ml/m2 LAV(MOD-sp2): 40.2 ml LAV(MOD-sp4): 40.2 ml RA A4 area: 14.1 cm2 Time Measurements MV dec time: 0.15 sec Doppler Measurements & Calculations MV E max raphael: 86.5 cm/sec Lat Peak E' Raphael: 10.0 cm/sec Med Peak E' Raphael: 9.2 cm/sec MV A max raphael: 72.8 cm/sec E/E' lat: 8.6 E/E' med: 9.4 MV E/A: 1.2 Ao V2 max: 120.9 cm/sec LV V1 max: 103.2 cm/sec PA V2 max: 108.8 cm/sec Ao max P.9 mmHg LV V1 max P.3 mmHg Interpretation Summary Normal LV size. Left ventricular systolic function is normal. The estimated ejection fraction is 60 %. Normal diastology for age. Structurally normal valves. Ordering Physician: Landon Castanon Referring Physician: Jhonny Valladares Performed By: Catarina Henderson RDCS, RVT
[2019-08-21] MEDS: Gabapentin 300 MG Capsule PO ×3 (08:50→16:12)
[2019-08-21] MEDS: Famotidine 20 MG Tablet PO ×2 (08:50→21:37)
[2019-08-21] MEDS: Topiramate 50 MG Tablet PO (08:51)
[2019-08-21] MEDS: Insulin Lispro 100 UNIT/ML INSULN.PEN SC ×4 (08:54→21:40)
[2019-08-21 09:01] LABS: Bedside Glucose 277 mg/dL (70-110)
--- NOTE | 2019-08-21 10:15 | PCM.CON.CC ---
Problem List (1) AVM (arteriovenous malformation) brain Status: Chronic (2) HTN (hypertension) Status: Chronic Qualifiers: Hypertension type: essential hypertension Qualified Code(s): I10 - Essential (primary) hypertension (3) Right hemiparesis Status: Acute Comment: Lower suspicion CVA, possible complex migraine versus conversion versus malingering (4) Seizure disorder Status: Chronic (5) Obesity Status: Chronic (6) HLD (hyperlipidemia) Status: Chronic Qualifiers: Hyperlipidemia type: unspecified Qualified Code(s): E78.5 - Hyperlipidemia, unspecified (7) Type II diabetes mellitus Status: Chronic Qualifiers: 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 Patient reportedly was of her usual health until 1 hour prior to arrival. Patient was a known type II diabetic and presented with blood sugars of 350. Patient had reportedly had presented to [facility] with similar type symptoms approximately 2 weeks ago and was transferred to [facility]. At that time, patient had a complete work-up and this was thought to be secondary to complex migraine. In the ER, stroke team was called. Patient had a CTA that was negative for large vessel occlusion. Stroke neurologist discussed with the ER physician and patient was given Benadryl, Solu-Medrol prior to the CTA. After further discussion, patient was given TPA secondary to a reported NIH of 10. Patient was admitted to the intensive care unit for further evaluation. Overnight, patient has remained hemodynamically stable on room air. Patient's glucose has been somewhat elevated, but otherwise there was no real interventions required. Patient has not had significant hypertension. No blood loss has been reported. Patient reports a very similar clinical course 2 weeks ago. Patient is unaware of the exact work-up completed at [facility], but does believe that she is doing the same thing. Patient does not report any seizure activity, fever, chills, nausea or vomiting. Patient has no respiratory complaints at this time. No allergic reaction has been noted secondary to IV dye. Patient's current NIH is 2 secondary to some drift of the right upper and lower extremities. Review of systems otherwise negative from a constitutional, HEENT, respiratory, cardiovascular, GI, genitourinary, musculoskeletal, skin, neurologic, psychiatric and hematologic system unless stated above. Past Medical History Past Medical History (Chronic Problems): Chronic Problems AVM (arteriovenous malformation) brain (Chronic) HTN (hypertension) (Chronic) Seizure disorder (Chronic) Obesity (Chronic) HLD (hyperlipidemia) (Chronic) Type II diabetes mellitus (Chronic) Allergies Sulfa (Sulfonamide Antibiotics) Allergy (Intermediate, Verified 08/14/18 10:50) Hives Iodinated Contrast Media Allergy (Mild, Verified 08/14/18 10:50) Rash uncontrollable itching nortriptyline Adverse Reaction (Severe, Verified 08/14/18 10:50) Other lowered blood sugar, caused irregular hear rythym metformin Adverse Reaction (Intermediate, Verified 08/14/18 10:50) Diarrhea morphine Adverse Reaction (Verified 08/14/18 10:50) Itching Home Medications: Ambulatory Orders Medication Instructions Recorded Liraglutide [Victoza 2-Ben] 1.8 units SQ DAILY 09/20/15 Topiramate [Topamax] 100 mg PO QHS 09/20/15 Topiramate [Topamax] 50 mg PO BREAKFAST 07/02/16 Gabapentin [Neurontin] 300 mg PO TIDCM 05/10/17 Naproxen [Naprosyn] 500 mg PO BID PRN PRN #20 tablet 08/01/18 Acetaminophen with Codeine 1 tab PO Q6H PRN PRN 08/14/18 [Acetaminophen-Cod #3 Tablet] Empagliflozin [Jardiance] 25 mg PO DAILY 08/14/18 Surgical History: cholecystectomy, hysterectomy, - - Embolization of vein in the uterus Psychiatric History: Anxiety, Depression 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 Agree with formal interpretation. Chest x-ray showed low volumes, but no acute infiltrate was appreciated. - Physical Exam Vitals/I&O's: Vital Signs Temp Pulse Resp BP Pulse Ox 37.1 C 99 19 H 125/81 H 96 08/21/19 08:19 08/21/19 09:19 08/21/19 09:19 08/21/19 09:19 08/21/19 09:19 Oxygen Delivery Method Room Air Weight: 101.3 kg Body Mass Index (BMI) 36.0 Finger Stick Blood Glucose 358 Intake and Output for Last 24 Hours 08/19/19 08/20/19 08/21/19 23:59 23:59 23:59 Intake Total 128.33 / 128.33 1612.67 / 1612.67 Output Total 2850 / 2850 Balance 128.33 / 128.33 -1237.33 / -1237.33 General: Alert, Oriented x3, Cooperative, No apparent distress, Well developed, Well nourished, - - Obese. No conversational dyspnea, aphasia or dysarthria appreciated. HEENT: Atraumatic, PERRLA, EOMI, Normocephalic, - - Glasses in place. No scleral icterus or injection noted Oral: Moist Mucosa, No Gingival or Mucosal Lesions/ Ulcerations, - - No facial droop noted Neck: Supple, No JVD, No Nodes, Trachea Midline Lungs: Clear to auscultation, Normal air movement, No rhonchi, No wheeze, No rales, - - Symmetric expansion. No dullness to percussion. Cardiovascular: Regular rate, Regular Rhythm, Normal S1, Normal S2, No murmurs, No rub noted, No Gallop Abdomen: Bowel Sounds Present, Soft, Non Tender, Non-Distended, Obese Extremities: No clubbing, No cyanosis, No edema Skin: No rashes, No breakdown Musculoskeletal: No Tenderness to Palpation of Joints or Extremities Lymphatic: No Cervical, Supraclavicular, or Inguinal Adenopathy Neurological: Cranial nerves II-XII grossly intact, - - Slight right upper extremity drift and right lower extremity drift appreciated. Otherwise NIH is negative. Laboratory Results 08/20/19 22:21: WBC 7.0, RBC 5.06, Hgb 13.4, Hct 41.4, MCV 81.8, MCH 26.5 L, MCHC 32.4, RDW Std Deviation 42.4, RDW Coeff of Quentin 14.6, Plt Count 223, MPV 9.9, Immature Gran % (Auto) 1.000 H, Neut % (Auto) 44.7 L, Lymph % (Auto) 37.8, [place] % (Auto) 7.4, Eos % (Auto) 8.4 H, Baso % (Auto) 0.7, Absolute Neuts (auto) 3.1, Absolute Lymphs (auto) 2.64, Nucleated RBC % 0 08/20/19 22:21: PT 11.6 L, INR 0.9, APTT 25.4 08/20/19 22:21: Sodium 137, Potassium 3.6, Chloride 106, Carbon Dioxide 24.0, Anion Gap 7, BUN 16, Creatinine 0.98, Estim Creat Clear Calc 73.58, Est GFR (MDRD) Af Amer 81, Est GFR (MDRD) Non-Af 67, BUN/Creatinine Ratio 16.2, Glucose 314 H, Calcium 8.8, Troponin I < 0.015 08/20/19 22:21: Magnesium 1.6, TSH 2.71 08/20/19 22:21: Hemoglobin A1c 8.4 H 08/21/19 01:20: POC Glucose 333 H 08/21/19 04:15: WBC 5.5, RBC 5.10, Hgb 13.6, Hct 42.7, MCV 83.7, MCH 26.7 L, MCHC 31.9 L, RDW Std Deviation 43.5, RDW Coeff of Quentin 14.3, Plt Count 203, MPV 10.2, Immature Gran % (Auto) 1.100 H, Neut % (Auto) 73.2 H, Lymph % (Auto) 20.8, [place] % (Auto) 1.8, Eos % (Auto) 2.4, Baso % (Auto) 0.7, Absolute Neuts (auto) 4.0, Absolute Lymphs (auto) 1.14, Nucleated RBC % 0 08/21/19 04:15: Sodium 138, Potassium 4.3, Chloride 107, Carbon Dioxide 21.0, Anion Gap 10, BUN 21 H, Creatinine 1.06 H, Estim Creat Clear Calc 68.03, Est GFR (MDRD) Af Amer 75, Est GFR (MDRD) Non-Af 62, BUN/Creatinine Ratio 19.8, Glucose 395 H, Calcium 8.6, Triglycerides 170, Cholesterol 208 H, LDL Cholesterol 132 H, VLDL Cholesterol 34, HDL Cholesterol 42 08/21/19 08:43: POC Glucose 277 H Current Medications Acetaminophen (Tylenol) 650 mg PO .X1 PRN PRN Reason: Temp > 99.6 F Acetaminophen (Tylenol) 650 mg PO Q6H PRN PRN PRN Reason: Pain Score 1-10/Temp > 100.7 F Al Hydroxide/Mg Hydroxide (Mylanta Ii) 30 ml PO Q6H PRN PRN PRN Reason: Gastric Burning Albuterol Sulfate (Ventolin Aerosols) 2.5 mg INHALATION Q2H PRN PRN PRN Reason: SOB/Wheezing Atorvastatin Calcium (Lipitor) 80 mg PO QHS [facility] Dextrose (D50w Syringe) 0 gm IV X1 PRN; Protocol PRN Reason: Hypoglycemia Diphenhydramine HCl (Benadryl) 50 mg IV .X1 PRN PRN Reason: Allergic Reaction Stop: 08/22/19 22:16 Epinephrine HCl () 0.3 mg IM .X1 PRN PRN Reason: Allergic Reaction Stop: 08/22/19 22:16 Famotidine (Pepcid) 20 mg PO BID [facility] Last Admin: 08/21/19 08:50 Dose: 20 mg Documented by: Gabapentin (Neurontin) 300 mg PO TIDCM [facility] Last Admin: 08/21/19 08:50 Dose: 300 mg Documented by: Glucagon () 1 mg IM .X1 PRN PRN Reason: Hypoglycemia Guaifenesin (Robitussin) 10 ml PO Q4H PRN PRN PRN Reason: COUGH Sodium Chloride () 1,000 mls @ 100 mls/hr IV .Q10H [facility] Last Infusion: 08/21/19 05:30 Dose: 100 mls/hr Documented by: Famotidine 20 mg/ Sodium (Chloride) 10 mls @ 300 mls/hr IV .X1 PRN PRN Reason: Allergic Reaction Stop: 08/22/19 22:16 Nicardipine/Dextrose (Cardene-Dex 20 Mg/200 Ml Soln) 20 mg in 200 mls @ 50 mls/hr IV .Q4H PRN; Protocol PRN Reason: See Instructions Insulin Glargine (Lantus (Bkc)) 10 units SC BID [facility] Last Admin: 08/21/19 08:48 Dose: 10 u Documented by: Insulin Human Lispro (Humalog Kwikpen (Bkc)) 0 unit SC ACHS [facility]; Protocol Last Admin: 08/21/19 08:54 Dose: 9 u Documented by: Labetalol HCl (Trandate) 20 mg IV X1 PRN PRN Reason: BLOOD PRESSURE Labetalol HCl (Trandate) 20 mg IV X1 PRN PRN Reason: BLOOD PRESSURE Magnesium Hydroxide (Milk Of Magnesia) 30 ml PO DAILY PRN PRN PRN Reason: Constipation Melatonin (Melatonin) 3 mg PO QHS PRN PRN PRN Reason: INSOMNIA Methylprednisolone (Solu-Medrol) 125 mg IV .X1 PRN PRN Reason: Allergic Reaction Stop: 08/22/19 22:16 Ondansetron HCl (Zofran) 4 mg IV Q8H PRN PRN PRN Reason: NAUSEA/VOMITING Prochlorperazine Edisylate (Compazine Iv) 5 mg IV Q4H PRN PRN PRN Reason: Breakthrough Nausea/Vomiting Psyllium Hydrophilic Mucilloid (Metamucil) 1 packet PO DAILY PRN PRN PRN Reason: Constipation Senna/Docusate Sodium (Senokot-S, Cindy-Colace) 2 tablet PO BID PRN PRN Reason: Constipation Sodium Chloride () 10 - 40 ml IV UD PRN PRN Reason: SALINE FLUSH Throat Lozenges (Cepacol Sore Throat Lozenge) 1 lozenge MUCOUS MEM Q2H PRN PRN PRN Reason: SORE THROAT Topiramate (Topamax) 50 mg PO BREAKFAST [facility] Last Admin: 08/21/19 08:51 Dose: 50 mg Documented by: Topiramate (Topamax) 100 mg PO QHS [facility] Last Admin: 08/21/19 01:03 Dose: Not Given Documented by: Clinical Impression(s) from Imaging Studies Brain CT 08/20/19 21:59 IMPRESSION: No acute findings. Electronically Signed: Giancarlo Schofield, at 22:17 EDT Tel , Service support , ADDENDUM: 08/20/19 7887 IMPRESSION: No acute findings. N.B. : The above information has been verbally conveyed by Giancarlo Schofield to Dr. Nuha MD, on 08/20/2019 22:18:23 (ET). Electronically Signed: Giancarlo Schofield, at 22:17 EDT Tel , Service support , Head/Neck CTA 08/20/19 22:29 IMPRESSION: No significant arterial narrowing in the head or neck. Electronically Signed: Giancarlo Schofield, at 23:06 EDT Tel , Service support , Chest X-Ray 08/20/19 22:40 IMPRESSION: Mild retrocardiac opacity could represent atelectasis secondary to low lung volumes or mild pneumonia or edema. Electronically Signed: Giancarlo Schofield, at 22:55 EDT Tel , Service support , Assessment/Plan Active and Suspected Problems Acute ischemic stroke (Acute) Right hemiparesis (Acute) Lower suspicion CVA, possible complex migraine versus conversion versus malingering RECOMMENDATIONS: 1. Continue post TPA protocol 2. Consider discussion with international marketing coordinator on whether testing needs repeated given recent evaluation 3. Await CT/MRI 4. Aggressive blood sugar control IMPRESSIONS: 1. Right-sided hemiparesis and aphasia Recent work-up for similar type symptoms, all right-sided. Patient did receive TPA and is currently on the protocol. Will have to discuss with the international marketing coordinator on whether patient really needs to have all testing repeated given recent evaluation 5 weeks ago. Therapies have been consulted. Anticipate initiation of aspirin versus Plavix, along with statin therapy once CT is negative. Consider outpatient follow-up with behavioral health. 2. Type 2 diabetes mellitus with neuropathy Last hemoglobin A1c was approximately a year ago at 9.5%. Patient is currently on low-dose Lantus. Dietitian for education and teaching. Hold Victoza and give sliding scale insulin for now. 3. Reported cerebral AVM/hypertension/hyperlipidemia/epilepsy/obesity/GERD Complicates care, management, recovery and prognosis. Obtain old records from [facility]. Unclear if patient would benefit from an EEG as Joel's paralysis would be a consideration. Defer to hospitalist. Blood pressures are currently appropriate. Would not treat with antihypertensive at this time. Inpatient E&M: 81284 Init Hosp L2
--- NOTE | 2019-08-21 10:45 | PCM.PN.HOSP ---
Patient Problems: Active and Suspected Problems Acute ischemic stroke (Acute) Right hemiparesis (Acute) Lower suspicion CVA, possible complex migraine versus conversion versus malingering Subjective: Patient seen and examined. She was admitted with a complaint of right sided hemiparesis. CT of the brain was negative. SHe received tPA after ED discussed with [facility]. Of note, she also received tPA ~ 5 weeks ago at [facility]. Patient feels better today. Right sided hemiparesis is getting beter. She denies nausea, vomiting, fever, chills, abdominal pain, diarrhea or vomiting. Review of systems is otherwise negative. Labs and vitals reviewed. Vitals/I&O's: Vital Signs Temp Pulse Resp BP Pulse Ox 98.8 F 86 16 123/73 H 93 08/21/19 08:19 08/21/19 10:19 08/21/19 10:19 08/21/19 10:19 08/21/19 10:19 Oxygen Delivery Method Room Air Weight: 223 lb 5.252 oz Body Mass Index (BMI) 36.0 Finger Stick Blood Glucose 358 Intake and Output for Last 24 Hours 08/19/19 08/20/19 08/21/19 23:59 23:59 23:59 Intake Total 128.33 / 128.33 1612.67 / 1612.67 Output Total 2850 / 2850 Balance 128.33 / 128.33 -1237.33 / -1237.33 General: Alert, Oriented x3, Cooperative, No apparent distress HEENT: Atraumatic, PERRLA, EOMI, Normocephalic Oral: Moist Mucosa Neck: Supple, No JVD, Negative Carotid Bruits Lungs: Clear to auscultation, Normal air movement, No rhonchi, No wheeze, No rales Cardiovascular: Regular rate, Regular Rhythm, Normal S1, Normal S2, No murmurs Abdomen: Bowel Sounds Present, Soft, Non Tender, Non-Distended, No Hepato-splenomegaly Extremities: No edema, Capillary Refill Less than 3 Seconds Skin: No rashes, No breakdown Musculoskeletal: No Tenderness to Palpation of Joints or Extremities Lymphatic: No Cervical, Supraclavicular, or Inguinal Adenopathy Neurological: - - power minimally reduced in RUE and RLE, with power being 4-/5; tone is normal Psych/Mental Status: Normal Affect, Appropriate, Alert and oriented to time, place, person, mood and affect Laboratory Results 08/20/19 22:21: WBC 7.0, RBC 5.06, Hgb 13.4, Hct 41.4, MCV 81.8, MCH 26.5 L, MCHC 32.4, RDW Std Deviation 42.4, RDW Coeff of Quentin 14.6, Plt Count 223, MPV 9.9, Immature Gran % (Auto) 1.000 H, Neut % (Auto) 44.7 L, Lymph % (Auto) 37.8, [place] % (Auto) 7.4, Eos % (Auto) 8.4 H, Baso % (Auto) 0.7, Absolute Neuts (auto) 3.1, Absolute Lymphs (auto) 2.64, Nucleated RBC % 0 08/20/19 22:21: PT 11.6 L, INR 0.9, APTT 25.4 08/20/19 22:21: Sodium 137, Potassium 3.6, Chloride 106, Carbon Dioxide 24.0, Anion Gap 7, BUN 16, Creatinine 0.98, Estim Creat Clear Calc 73.58, Est GFR (MDRD) Af Amer 81, Est GFR (MDRD) Non-Af 67, BUN/Creatinine Ratio 16.2, Glucose 314 H, Calcium 8.8, Troponin I < 0.015 08/20/19 22:21: Magnesium 1.6, TSH 2.71 08/20/19 22:21: Hemoglobin A1c 8.4 H 08/21/19 01:20: POC Glucose 333 H 08/21/19 04:15: WBC 5.5, RBC 5.10, Hgb 13.6, Hct 42.7, MCV 83.7, MCH 26.7 L, MCHC 31.9 L, RDW Std Deviation 43.5, RDW Coeff of Quentin 14.3, Plt Count 203, MPV 10.2, Immature Gran % (Auto) 1.100 H, Neut % (Auto) 73.2 H, Lymph % (Auto) 20.8, [place] % (Auto) 1.8, Eos % (Auto) 2.4, Baso % (Auto) 0.7, Absolute Neuts (auto) 4.0, Absolute Lymphs (auto) 1.14, Nucleated RBC % 0 08/21/19 04:15: Sodium 138, Potassium 4.3, Chloride 107, Carbon Dioxide 21.0, Anion Gap 10, BUN 21 H, Creatinine 1.06 H, Estim Creat Clear Calc 68.03, Est GFR (MDRD) Af Amer 75, Est GFR (MDRD) Non-Af 62, BUN/Creatinine Ratio 19.8, Glucose 395 H, Calcium 8.6, Triglycerides 170, Cholesterol 208 H, LDL Cholesterol 132 H, VLDL Cholesterol 34, HDL Cholesterol 42 08/21/19 08:43: POC Glucose 277 H Diagnostic Data Brain CT 08/20/19 21:59 IMPRESSION: No acute findings. Electronically Signed: Giancarlo Schofield at 22:17 EDT Tel , Service support , ADDENDUM: 08/20/192224 IMPRESSION: No acute findings. N.B. : The above information has been verbally conveyed by Giancarlo Schofield to Dr. Nuha MD, on 08/20/2019 22:18:23 (ET). Electronically Signed: Giancarlo Schofield at 22:17 EDT Tel , Service support , Head/Neck CTA 08/20/19 22:29 IMPRESSION: No significant arterial narrowing in the head or neck. Electronically Signed: Giancarlo Schofield at 23:06 EDT Tel , Service support , Chest X-Ray 08/20/19 22:40 IMPRESSION: Mild retrocardiac opacity could represent atelectasis secondary to low lung volumes or mild pneumonia or edema. Electronically Signed: Giancarlo Schofield at 22:55 EDT Tel , Service support , Current Medications Acetaminophen (Tylenol) 650 mg PO .X1 PRN PRN Reason: Temp > 99.6 F Acetaminophen (Tylenol) 650 mg PO Q6H PRN PRN PRN Reason: Pain Score 1-10/Temp > 100.7 F Al Hydroxide/Mg Hydroxide (Mylanta Ii) 30 ml PO Q6H PRN PRN PRN Reason: Gastric Burning Albuterol Sulfate (Ventolin Aerosols) 2.5 mg INHALATION Q2H PRN PRN PRN Reason: SOB/Wheezing Atorvastatin Calcium (Lipitor) 80 mg PO QHS [facility] Dextrose (D50w Syringe) 0 gm IV X1 PRN; Protocol PRN Reason: Hypoglycemia Diphenhydramine HCl (Benadryl) 50 mg IV .X1 PRN PRN Reason: Allergic Reaction Stop: 08/22/19 22:16 Epinephrine HCl () 0.3 mg IM .X1 PRN PRN Reason: Allergic Reaction Stop: 08/22/19 22:16 Famotidine (Pepcid) 20 mg PO BID [facility] Last Admin: 08/21/19 08:50 Dose: 20 mg Documented by: Gabapentin (Neurontin) 300 mg PO TIDCM [facility] Last Admin: 08/21/19 08:50 Dose: 300 mg Documented by: Glucagon () 1 mg IM .X1 PRN PRN Reason: Hypoglycemia Guaifenesin (Robitussin) 10 ml PO Q4H PRN PRN PRN Reason: COUGH Sodium Chloride () 1,000 mls @ 100 mls/hr IV .Q10H [facility] Last Infusion: 08/21/19 05:30 Dose: 100 mls/hr Documented by: Famotidine 20 mg/ Sodium (Chloride) 10 mls @ 300 mls/hr IV .X1 PRN PRN Reason: Allergic Reaction Stop: 08/22/19 22:16 Nicardipine/Dextrose (Cardene-Dex 20 Mg/200 Ml Soln) 20 mg in 200 mls @ 50 mls/hr IV .Q4H PRN; Protocol PRN Reason: See Instructions Insulin Glargine (Lantus (Bkc)) 10 units SC BID [facility] Last Admin: 08/21/19 08:48 Dose: 10 u Documented by: Insulin Human Lispro (Humalog Kwikpen (Bkc)) 0 unit SC ACHS [facility]; Protocol Last Admin: 08/21/19 08:54 Dose: 9 u Documented by: Labetalol HCl (Trandate) 20 mg IV X1 PRN PRN Reason: BLOOD PRESSURE Labetalol HCl (Trandate) 20 mg IV X1 PRN PRN Reason: BLOOD PRESSURE Magnesium Hydroxide (Milk Of Magnesia) 30 ml PO DAILY PRN PRN PRN Reason: Constipation Melatonin (Melatonin) 3 mg PO QHS PRN PRN PRN Reason: INSOMNIA Methylprednisolone (Solu-Medrol) 125 mg IV .X1 PRN PRN Reason: Allergic Reaction Stop: 08/22/19 22:16 Ondansetron HCl (Zofran) 4 mg IV Q8H PRN PRN PRN Reason: NAUSEA/VOMITING Prochlorperazine Edisylate (Compazine Iv) 5 mg IV Q4H PRN PRN PRN Reason: Breakthrough Nausea/Vomiting Psyllium Hydrophilic Mucilloid (Metamucil) 1 packet PO DAILY PRN PRN PRN Reason: Constipation Senna/Docusate Sodium (Senokot-S, Cindy-Colace) 2 tablet PO BID PRN PRN Reason: Constipation Sodium Chloride () 10 - 40 ml IV UD PRN PRN Reason: SALINE FLUSH Throat Lozenges (Cepacol Sore Throat Lozenge) 1 lozenge MUCOUS MEM Q2H PRN PRN PRN Reason: SORE THROAT Topiramate (Topamax) 50 mg PO BREAKFAST [facility] Last Admin: 08/21/19 08:51 Dose: 50 mg Documented by: Topiramate (Topamax) 100 mg PO QHS [facility] Last Admin: 08/21/19 01:03 Dose: Not Given Documented by: STROKE Vital Signs/Narrative: Vital Signs Temp Pulse Resp BP Pulse Ox 08/21/19 10:19 86 16 123/73 H 93 08/21/19 09:19 99 19 H 125/81 H 96 08/21/19 08:19 98.8 F 82 16 117/75 91 08/21/19 08:02 95 08/21/19 07:34 80 08/21/19 07:19 86 23 H 119/72 95 08/21/19 06:49 82 14 128/83 H 96 Medical Necessity - Tobacco Use Smoking Status: Never smoker Tobacco Use: Non-smoker Assessment/Plan All Active Problems Acute ischemic stroke (Acute) Right hemiparesis (Acute) 1. Right sided hemiparesis s/p tPA CT of the head was negative for stroke will do MRI 24 hours after tPA hold aspirin until 24-48 hours after tPA on statin. has had similar previous presentations and received tPA at [facility] 5 weeks ago 2. TYpe 2 diabetes mellitus complicated by neuropathy A1C is 8.4 on lantus 10IU bid and ISS accuchecks ACHS home meds- liraglutide and empagliflozin on hold 3. History of cerebral AVM stable. 4. Hypertension: BP has been WNL. no meds curerntly. Will monitor and see. 5. Hyperlipidemia: on statin. lipid panel showed cholesterol of 208 and LDL of 132. 6. seizure disorder: on topamax 7. Obesity: nutrition on board 8. GERD: on famotidine. [facility] E[facility]: 17049 Subs Hosp L2
[2019-08-21] MEDS: Acetaminophen 325 MG Tablet 650 MG PO ×2 (11:00→18:43)
--- NOTE | 2019-08-21 11:10 | CASEMGMT ---
RN CM Assessment Note Presentation: CVA-Hemiparesis, R sided, expressive aphasia. TPA administered. Intro role of CM and purpose of RN CM assessment to patient in room. Pt is awake, alert and able to participate in assessment. Demographics, PCP and Pharmacy verified. Pt states she was doing well @ home prior to admission. States her symptoms are improving. LYNDA MANCERA discussed PT/OT would eval pt tomorrow and give recommendations if any therapy would be needed. Pt understands and agrees. PCP: Dr. Valladares Specialists: anticipate will need neuro f/u Preferred Pharmacy: [facility] Insurance: [employer] PPO Prescription Benefit: yes LNOK : Mother, Maday Alberts Living Arrangements: Lives independently. Denies care needs. States she has continuous glucose monitor and is compliant with insulin regimine. Hgb A1c is 8.4 Transportation: drives, denies difficulty with f/u. DME: glucose monitor HHC: none Patient DC goals: Home DC PLAN: anticipate home, will evaluate after PT/OT for needs on dc. LYNDA CM advised to contact cm for any concerns/needs that may arise. Jenny MILESN RN ACM
[2019-08-21 11:11] LABS: Bedside Glucose 237 mg/dL (70-110)
--- NOTE | 2019-08-21 11:58 | CASEMGMT ---
Social Work Note SW received referral for possible stroke for pt. Pt presented to [facility] for stroke like symptoms. SW met with pt and introduced self and role at [facility]. Pt is alert and orientated x3. Pt states that they are still trying to figure out if pt had a stroke or not and she is waiting for the results. Pt confirms that she has history of seizures. SW provided emotional support to pt. Pt denied any current or any history of depression. Denied any feelings of sadness, hopelessness, or uselessness. Pt states that the past 3-4 months have been stressful. Pt states life stressors have been stressful. Pt didn't elaborate on life stressors to this worker. Pt does state that she has good family/friends support. Pt states that overall she is doing ok. 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 Pt denied additional needs or concerns at this time. Pt confirms that she was previously independent with ALDs and states she hopes to return home at discharge. Karina Bennett BAGGAGE AGENT, SALES AND SUPPORT CENTER AGENT
[2019-08-21 16:21] LABS: Bedside Glucose 192 mg/dL (70-110)
[2019-08-21] MEDS: Ondansetron 4 MG/2 ML Vial IV (17:39)
[2019-08-21] MEDS: Topiramate 100 MG Tablet PO (21:37)
[2019-08-21] MEDS: Atorvastatin Calcium 80 MG Tablet PO (21:37)
[2019-08-21 21:46] LABS: Bedside Glucose 179 mg/dL (70-110)
--- NOTE | 2019-08-21 23:19 | CT_ITS ---
STUDY: CT BRAIN WITHOUT CONTRAST REASON FOR EXAM: Female, 38 years old. 24 hours post TPA, right hemiparesis, unable to talk. RADIATION DOSAGE (If Supplied By Facility): CTDIvol = ( 44.99 ) mGy, DLP = ( 745.49 ) mGycm TECHNIQUE: Transaxial CT imaging of the brain was performed without administration of intravenous contrast material. Individualized dose optimization techniques were used for this CT. COMPARISON: August 20, 2019, August 14, 2018. MRI of the brain August 15, 2018 and November 13, 2017. FINDINGS: Normal soft tissue structures. Normal calvarium. Absence of the splenium and a portion of the body of the corpus callosum, noted previously. Widely spaced lateral ventricles. Normal white matter tracts of the cerebral hemispheres. Normal basal ganglia and thalami. Normal brainstem. Normal cerebellum. There is no intracranial hemorrhage. There are no findings of an acute ischemic infarction. Normal visualized paranasal sinuses. CT/Brain/Head without Contrast IMPRESSION: No acute intracranial abnormality. No intracranial hemorrhage. Dysgenesis of the corpus callosum, noted previously. Electronically Signed: Steve Staples MD at 0:22 EDT , Service support ,
[2019-08-22] VITALS (25 sets, daily range): BP systolic 91–140; BP diastolic 55–80; PULSE 63–91; RESP 12–19; TEMP 35.9–37.2; O2SAT 94–98; BMI 36.0
[2019-08-22] MEDS: traMADol 50 MG Tablet PO ×2 (01:02→11:41)
[2019-08-22 04:47] LABS: Absolute Lymphocyte Count 2.92 X10^3/uL (0.83-4.51); Absolute Neutrophil Count 4.5 X10^3/uL (2.0-7.7); Basophil# 0.05 X10^3/uL; Basophil% 0.6 % (0-1); Eosinophil# 0.38 X10^3/uL; Eosinophils% 4.6 % (0-5); Hematocrit 42.1 % (37-47); Hemoglobin 13.4 g/dL (12.0-15.0); Lymphocyte # 2.92 X10^3/ul (4.0); Lymphocyte % 35.2 % (19-41); Mean Corp Hgb Conc 31.8 g/dL (32-36); Mean Corpuscular Hgb 26.8 pg (27.0-32.0); Mean Corpuscular Volume 84.2 fL (81-99); Mean Platelet Vol. 10.2 fl (6.2-12.0); Monocyte# 0.38 X10^3/uL; Monocyte% 4.6 % (0-10); NRBC Flagged by Analyzer 0 % (0-5); Neutrophil # 4.52 X10^3/uL (2.7-7.7); Neutrophil % 54.4 % (47-70); Platelet Count 201 K/mm3 (150-450); RBC Distribution Width CV 14.6 % (11.6-14.6); RBC Distribution Width SD 44.3 fl (35.1-43.9); White Blood Count 8.3 K/mm3 (4.4-11.0)
[2019-08-22 05:09] LABS: Anion Gap 8 (5-15); BUN 20 mg/dL (7-18); BUN/Creat Ratio 25.6 RATIO (10-20); Calcium,Total 7.9 mg/dL (8.5-10.1); Chloride 106 mmol/L (98-107); Creatinine, Serum 0.78 mg/dL (0.55-1.02); EST Glomerular Filtration Rate 88 mL/min (>60); Est Glom Filt Rate - Afr Amer 106 mL/min (>60); Estimated Creatinine Clearance 92.45 ml/min; Glucose 186 mg/dL (74-106); Sodium Level 137 mmol/L (136-145)
--- NOTE | 2019-08-22 06:30 | NURSING ---
Leal catheter was removed this am by this RN, patient tolerated well.
[2019-08-22 06:40] LABS: Bedside Glucose 191 mg/dL (70-110)
--- NOTE | 2019-08-22 07:41 | PCM.PN.INT ---
Subjective: Patient did well overnight. No acute issues were reported. Patient has had an intermittent NIH of 1 associated with right arm drift, but this does appear to be variable per nursing staff. No complications of TPA have been reported or found on imaging studies. Patient did complain of a headache overnight that was responsive to Ultram. Objective: Echocardiogram was normal. General: Alert, Oriented x3, Cooperative, No apparent distress, Well developed, Well nourished, - - Obese. No conversational dyspnea. HEENT: Atraumatic, PERRLA, EOMI, Normocephalic, - - No scleral icterus or injection noted Oral: Moist Mucosa, No Gingival or Mucosal Lesions/ Ulcerations Neck: Supple, No JVD, No Nodes, Trachea Midline Lungs: Clear to auscultation, Normal air movement, No rhonchi, No wheeze, No rales Cardiovascular: Regular rate, Regular Rhythm, Normal S1, Normal S2, No murmurs, No rub noted, No Gallop Abdomen: Bowel Sounds Present, Soft, Non Tender, Non-Distended, Obese Extremities: No clubbing, No cyanosis, No edema, Capillary Refill Less than 3 Seconds Skin: No rashes, No breakdown Musculoskeletal: No Tenderness to Palpation of Joints or Extremities Lymphatic: No Cervical, Supraclavicular, or Inguinal Adenopathy Neurological: Cranial nerves II-XII grossly intact, Neuro grossly intact, Motor Exam 5/5 strength throughout Psych/Mental Status: Alert and oriented to time, place, person, mood and affect Vital Signs Temp Pulse Resp BP Pulse Ox 36.8 C 71 15 102/68 95 08/22/19 07:00 08/22/19 07:00 08/22/19 07:00 08/22/19 07:00 08/22/19 07:00 Oxygen Delivery Method Room Air Weight: 100.6 kg Body Mass Index (BMI) 36.0 Finger Stick Blood Glucose 358 Intake and Output for Last 24 Hours 08/20/19 08/21/19 08/22/19 23:59 23:59 23:59 Intake Total 128.33 / 128.33 4929.34 / 4929.34 553.33 / 553.33 Output Total 5350 / 5350 850 / 850 Balance 128.33 / 128.33 -420.66 / -420.66 -296.67 / -296.67 Labs (Last 48 Hours) 08/20/19 08/20/19 08/20/19 22:21 22:21 22:21 WBC 7.0 RBC 5.06 Hgb 13.4 Hct 41.4 MCV 81.8 MCH 26.5 L MCHC 32.4 RDW Std Deviation 42.4 RDW Coeff of Quentin 14.6 Plt Count 223 MPV 9.9 Immature Gran % (Auto) 1.000 H Neut % (Auto) 44.7 L Lymph % (Auto) 37.8 [place] % (Auto) 7.4 Eos % (Auto) 8.4 H Baso % (Auto) 0.7 Absolute Neuts (auto) 3.1 Absolute Lymphs (auto) 2.64 Nucleated RBC % 0 PT 11.6 L INR 0.9 APTT 25.4 Sodium 137 Potassium 3.6 Chloride 106 Carbon Dioxide 24.0 Anion Gap 7 BUN 16 Creatinine 0.98 Estim Creat Clear Calc 73.58 Est GFR (MDRD) Af Amer 81 Est GFR (MDRD) Non-Af 67 BUN/Creatinine Ratio 16.2 Glucose 314 H Hemoglobin A1c Calcium 8.8 Magnesium Troponin I < 0.015 Triglycerides Cholesterol LDL Cholesterol VLDL Cholesterol HDL Cholesterol TSH POC Glucose 08/20/19 08/20/19 08/21/19 22:21 22:21 01:20 WBC RBC Hgb Hct MCV MCH MCHC RDW Std Deviation RDW Coeff of Quentin Plt Count MPV Immature Gran % (Auto) Neut % (Auto) Lymph % (Auto) [place] % (Auto) Eos % (Auto) Baso % (Auto) Absolute Neuts (auto) Absolute Lymphs (auto) Nucleated RBC % PT INR APTT Sodium Potassium Chloride Carbon Dioxide Anion Gap BUN Creatinine Estim Creat Clear Calc Est GFR (MDRD) Af Amer Est GFR (MDRD) Non-Af BUN/Creatinine Ratio Glucose Hemoglobin A1c 8.4 H Calcium Magnesium 1.6 Troponin I Triglycerides Cholesterol LDL Cholesterol VLDL Cholesterol HDL Cholesterol TSH 2.71 POC Glucose 333 H 08/21/19 08/21/19 08/21/19 04:15 04:15 08:43 WBC 5.5 RBC 5.10 Hgb 13.6 Hct 42.7 MCV 83.7 MCH 26.7 L MCHC 31.9 L RDW Std Deviation 43.5 RDW Coeff of Quentin 14.3 Plt Count 203 MPV 10.2 Immature Gran % (Auto) 1.100 H Neut % (Auto) 73.2 H Lymph % (Auto) 20.8 [place] % (Auto) 1.8 Eos % (Auto) 2.4 Baso % (Auto) 0.7 Absolute Neuts (auto) 4.0 Absolute Lymphs (auto) 1.14 Nucleated RBC % 0 PT INR APTT Sodium 138 Potassium 4.3 Chloride 107 Carbon Dioxide 21.0 Anion Gap 10 BUN 21 H Creatinine 1.06 H Estim Creat Clear Calc 68.03 Est GFR (MDRD) Af Amer 75 Est GFR (MDRD) Non-Af 62 BUN/Creatinine Ratio 19.8 Glucose 395 H Hemoglobin A1c Calcium 8.6 Magnesium Troponin I Triglycerides 170 Cholesterol 208 H LDL Cholesterol 132 H VLDL Cholesterol 34 HDL Cholesterol 42 TSH POC Glucose 277 H 08/21/19 08/21/19 08/21/19 11:00 16:09 21:36 WBC RBC Hgb Hct MCV MCH MCHC RDW Std Deviation RDW Coeff of Quentin Plt Count MPV Immature Gran % (Auto) Neut % (Auto) Lymph % (Auto) [place] % (Auto) Eos % (Auto) Baso % (Auto) Absolute Neuts (auto) Absolute Lymphs (auto) Nucleated RBC % PT INR APTT Sodium Potassium Chloride Carbon Dioxide Anion Gap BUN Creatinine Estim Creat Clear Calc Est GFR (MDRD) Af Amer Est GFR (MDRD) Non-Af BUN/Creatinine Ratio Glucose Hemoglobin A1c Calcium Magnesium Troponin I Triglycerides Cholesterol LDL Cholesterol VLDL Cholesterol HDL Cholesterol TSH POC Glucose 237 H 192 H 179 H 08/22/19 08/22/19 08/22/19 04:40 04:40 06:33 WBC 8.3 RBC 5.00 Hgb 13.4 Hct 42.1 MCV 84.2 MCH 26.8 L MCHC 31.8 L RDW Std Deviation 44.3 H RDW Coeff of Quentin 14.6 Plt Count 201 MPV 10.2 Immature Gran % (Auto) 0.600 Neut % (Auto) 54.4 Lymph % (Auto) 35.2 [place] % (Auto) 4.6 Eos % (Auto) 4.6 Baso % (Auto) 0.6 Absolute Neuts (auto) 4.5 Absolute Lymphs (auto) 2.92 Nucleated RBC % 0 PT INR APTT Sodium 137 Potassium 4.0 Chloride 106 Carbon Dioxide 23.0 Anion Gap 8 BUN 20 H Creatinine 0.78 Estim Creat Clear Calc 92.45 Est GFR (MDRD) Af Amer 106 Est GFR (MDRD) Non-Af 88 BUN/Creatinine Ratio 25.6 H Glucose 186 H Hemoglobin A1c Calcium 7.9 L Magnesium Troponin I Triglycerides Cholesterol LDL Cholesterol VLDL Cholesterol HDL Cholesterol TSH POC Glucose 191 H Clinical Impression(s) from Imaging Studies Brain CT 08/21/19 23:19 IMPRESSION: No acute intracranial abnormality. No intracranial hemorrhage. Dysgenesis of the corpus callosum, noted previously. Electronically Signed: Steve Staples MD at 0:22 EDT , Service support , Medical Necessity - Tobacco Use Smoking Status: Never smoker Tobacco Use: Non-smoker Assessment/Plan All Active Problems Acute ischemic stroke (Acute) Right hemiparesis (Acute) RECOMMENDATIONS: 1. Defer to hospitalist on long-term plan 2. Discontinue anaphylaxis medications for TPA 3. Okay to transfer from the intensive care unit 4. Hemodynamically stable on room air. Will sign off from a critical care perspective IMPRESSIONS: 1. Right-sided hemiparesis and aphasia Recent work-up for similar type symptoms, all right-sided. Patient did receive TPA and is currently having a normal neurologic examination. Therapies have been consulted. Anticipate initiation of aspirin versus Plavix, along with statin therapy once CT is negative. Consider outpatient follow-up with behavioral health. Patient does have migraines. Unclear if patient requires an MRI from my perspective 2. Type 2 diabetes mellitus with neuropathy Last hemoglobin A1c was approximately a year ago at 9.5%. Patient is currently on low-dose Lantus. Dietitian for education and teaching. Hold Victoza and give sliding scale insulin for now. 3. Reported cerebral AVM/hypertension/hyperlipidemia/epilepsy/obesity/GERD Complicates care, management, recovery and prognosis. Obtain old records from [facility]. Unclear if patient would benefit from an EEG as Joel's paralysis would be a consideration. Defer to hospitalist. Blood pressures are currently appropriate. Inpatient E&M: 53784 Subs Hosp L2
--- NOTE | 2019-08-22 08:00 | MRI_ITS ---
STUDY: MRI BRAIN WITHOUT CONTRAST REASON FOR EXAM: Female, 38 years old. cva, rt sided wakness, post TPA TECHNIQUE: Standardized multiplanar fat and water weighted pulse sequences were obtained. COMPARISON: CT 08/20/2018, MRI 08/15/2018 FINDINGS: Normal size of the ventricles and extra-axial spaces for the patient''s age. Normal white matter tracts of the supratentorial brain. There is no evidence for recent intracranial ischemia or other cause of cytotoxic edema on diffusion weighted imaging (DWI). Normal T2* images of the brain without demonstrated susceptibility artifact. There is no demonstrated hemosiderin stain. There is absence of the distal body and splenium of the corpus callosum which is unchanged. Normal bilateral basal ganglia. Normal thalami. There is no extra-axial fluid accumulation. Normal flow voids within the major intracranial circulation suggesting patency by spin echo criteria. Normal sella turcica, pituitary gland, infundibular stalk, optic chiasm and hypothalamus. Normal tectal plate and pineal gland. Normal midbrain, nav and medulla. Normal cerebellum. Normal basal cisterns. Normal bilateral temporal bones. Normal bilateral internal auditory canals. No demonstrated orbital abnormality, within the constraints of a routine brain study. Normal visualized paranasal sinuses. Normal calvarium and skull base. Normal visualized soft tissue structures. Normal visualized upper cervical spine. MRI/Brain without Contrast IMPRESSION: No change from 08/15/2018. No acute infarct. Dysgenesis of the corpus callosum. Electronically Signed: Bryan Anne MD at 9:17 EDT Tel , Service support ,
[2019-08-22] MEDS: Insulin Lispro 100 UNIT/ML INSULN.PEN SC ×3 (09:06→15:53)
[2019-08-22] MEDS: Topiramate 50 MG Tablet PO (09:08)
[2019-08-22] MEDS: Gabapentin 300 MG Capsule PO ×3 (09:08→15:54)
[2019-08-22] MEDS: Famotidine 20 MG Tablet PO ×2 (09:09→21:38)
[2019-08-22] MEDS: Acetaminophen 325 MG Tablet 650 MG PO ×2 (09:16→18:26)
--- NOTE | 2019-08-22 10:48 | PCM.PN.HOSP ---
Patient Problems: Active and Suspected Problems Acute ischemic stroke (Acute) Right hemiparesis (Acute) Lower suspicion CVA, possible complex migraine versus conversion versus malingering Subjective: Patient seen and examined. She complains of headache. Right sided weakness is improving. Review of systems otherwise negative. Labs and vitals reviewed. She has remained hemodynamically stable. Vitals/I&O's: Vital Signs Temp Pulse Resp BP Pulse Ox 96.7 F L 78 19 H 105/80 97 08/22/19 09:00 08/22/19 09:00 08/22/19 09:00 08/22/19 09:00 08/22/19 09:00 Oxygen Delivery Method Room Air Weight: 221 lb 12.56 oz Body Mass Index (BMI) 36.0 Finger Stick Blood Glucose 358 Intake and Output for Last 24 Hours 08/20/19 08/21/19 08/22/19 23:59 23:59 23:59 Intake Total 128.33 / 128.33 4929.34 / 4929.34 553.33 / 553.33 Output Total 5350 / 5350 850 / 850 Balance 128.33 / 128.33 -420.66 / -420.66 -296.67 / -296.67 General: Alert, Oriented x3, Cooperative, No apparent distress HEENT: Atraumatic, PERRLA, EOMI, Normocephalic Oral: Moist Mucosa Neck: Supple, No JVD, Negative Carotid Bruits Lungs: Clear to auscultation, Normal air movement, No rhonchi, No wheeze, No rales Cardiovascular: Regular rate, Regular Rhythm, Normal S1, Normal S2, No murmurs Abdomen: Bowel Sounds Present, Soft, Non Tender, Non-Distended, No Hepato-splenomegaly Extremities: No edema, Capillary Refill Less than 3 Seconds Skin: No rashes, No breakdown Musculoskeletal: No Tenderness to Palpation of Joints or Extremities Lymphatic: No Cervical, Supraclavicular, or Inguinal Adenopathy Neurological: - - power minimally reduced in RUE and RLE, with power being 4-/5; tone is normal Psych/Mental Status: Normal Affect, Appropriate, Alert and oriented to time, place, person, mood and affect Laboratory Results 08/21/19 11:00: POC Glucose 237 H 08/21/19 16:09: POC Glucose 192 H 08/21/19 21:36: POC Glucose 179 H 08/22/19 04:40: WBC 8.3, RBC 5.00, Hgb 13.4, Hct 42.1, MCV 84.2, MCH 26.8 L, MCHC 31.8 L, RDW Std Deviation 44.3 H, RDW Coeff of Quentin 14.6, Plt Count 201, MPV 10.2, Immature Gran % (Auto) 0.600, Neut % (Auto) 54.4, Lymph % (Auto) 35.2, [place] % (Auto) 4.6, Eos % (Auto) 4.6, Baso % (Auto) 0.6, Absolute Neuts (auto) 4.5, Absolute Lymphs (auto) 2.92, Nucleated RBC % 0 08/22/19 04:40: Sodium 137, Potassium 4.0, Chloride 106, Carbon Dioxide 23.0, Anion Gap 8, BUN 20 H, Creatinine 0.78, Estim Creat Clear Calc 92.45, Est GFR (MDRD) Af Amer 106, Est GFR (MDRD) Non-Af 88, BUN/Creatinine Ratio 25.6 H, Glucose 186 H, Calcium 7.9 L 08/22/19 06:33: POC Glucose 191 H Diagnostic Data Head/Neck CTA 08/20/19 22:29 IMPRESSION: No significant arterial narrowing in the head or neck. Electronically Signed: Giancarlo Schofield at 23:06 EDT Tel , Service support , Chest X-Ray 08/20/19 22:40 IMPRESSION: Mild retrocardiac opacity could represent atelectasis secondary to low lung volumes or mild pneumonia or edema. Electronically Signed: Giancarlo Schofield at 22:55 EDT Tel , Service support , Brain CT 08/21/19 23:19 IMPRESSION: No acute intracranial abnormality. No intracranial hemorrhage. Dysgenesis of the corpus callosum, noted previously. Electronically Signed: Steve Staples MD at 0:22 EDT , Service support , Brain MRI 08/22/19 08:00 IMPRESSION: No change from 08/15/2018. No acute infarct. Dysgenesis of the corpus callosum. Electronically Signed: Bryan Anne MD at 9:17 EDT Tel , Service support , Current Medications Acetaminophen (Tylenol) 650 mg PO .X1 PRN PRN Reason: Temp > 99.6 F Acetaminophen (Tylenol) 650 mg PO Q6H PRN PRN PRN Reason: Pain Score 1-10/Temp > 100.7 F Last Admin: 08/22/19 09:16 Dose: 650 mg Documented by: Al Hydroxide/Mg Hydroxide (Mylanta Ii) 30 ml PO Q6H PRN PRN PRN Reason: Gastric Burning Albuterol Sulfate (Ventolin Aerosols) 2.5 mg INHALATION Q2H PRN PRN PRN Reason: SOB/Wheezing Atorvastatin Calcium (Lipitor) 80 mg PO QHS [facility] Last Admin: 08/21/19 21:37 Dose: 80 mg Documented by: Dextrose (D50w Syringe) 0 gm IV X1 PRN; Protocol PRN Reason: Hypoglycemia Famotidine (Pepcid) 20 mg PO BID [facility] Last Admin: 08/22/19 09:09 Dose: 20 mg Documented by: Gabapentin (Neurontin) 300 mg PO TIDCM [facility] Last Admin: 08/22/19 09:08 Dose: 300 mg Documented by: Glucagon () 1 mg IM .X1 PRN PRN Reason: Hypoglycemia Guaifenesin (Robitussin) 10 ml PO Q4H PRN PRN PRN Reason: COUGH Insulin Glargine (Lantus (Bkc)) 10 units SC BID [facility] Last Admin: 08/22/19 09:10 Dose: 10 u Documented by: Insulin Human Lispro (Humalog Kwikpen (Bkc)) 0 unit SC [facility]; Protocol Last Admin: 08/22/19 09:06 Dose: 3 u Documented by: Labetalol HCl (Trandate) 20 mg IV X1 PRN PRN Reason: BLOOD PRESSURE Labetalol HCl (Trandate) 20 mg IV X1 PRN PRN Reason: BLOOD PRESSURE Magnesium Hydroxide (Milk Of Magnesia) 30 ml PO DAILY PRN PRN PRN Reason: Constipation Melatonin (Melatonin) 3 mg PO QHS PRN PRN PRN Reason: INSOMNIA Ondansetron HCl (Zofran) 4 mg IV Q8H PRN PRN PRN Reason: NAUSEA/VOMITING Last Admin: 08/21/19 17:39 Dose: 4 mg Documented by: Psyllium Hydrophilic Mucilloid (Metamucil) 1 packet PO DAILY PRN PRN PRN Reason: Constipation Senna/Docusate Sodium (Senokot-S, Cindy-Colace) 2 tablet PO BID PRN PRN Reason: Constipation Sodium Chloride () 10 - 40 ml IV UD PRN PRN Reason: SALINE FLUSH Throat Lozenges (Cepacol Sore Throat Lozenge) 1 lozenge MUCOUS MEM Q2H PRN PRN PRN Reason: SORE THROAT Topiramate (Topamax) 50 mg PO BREAKFAST [facility] Last Admin: 08/22/19 09:08 Dose: 50 mg Documented by: Topiramate (Topamax) 100 mg PO QHS [facility] Last Admin: 08/21/19 21:37 Dose: 100 mg Documented by: STROKE Vital Signs/Narrative: Vital Signs Temp Pulse Resp BP Pulse Ox 08/22/19 09:00 96.7 F L 78 19 H 105/80 97 08/22/19 08:38 80 16 119/76 97 08/22/19 08:37 78 16 116/76 95 08/22/19 08:31 78 16 118/74 96 08/22/19 08:29 77 16 122/77 H 97 08/22/19 08:26 77 16 112/67 95 08/22/19 08:22 77 16 115/72 95 08/22/19 08:20 73 16 110/75 97 08/22/19 08:16 74 16 111/72 96 08/22/19 08:00 64 08/22/19 07:00 98.2 F 71 15 102/68 95 Medical Necessity - Tobacco Use Smoking Status: Never smoker Tobacco Use: Non-smoker Assessment/Plan All Active Problems Acute ischemic stroke (Acute) Right hemiparesis (Acute) 1. Right sided hemiparesis s/p tPA CT of the head was negative for stroke MRI of brain was negative for any stroke, and shows only dysgenesis of corpus callosum neurology consult pending will await neuro input about whether to give aspirin or plavix, as there is no evidence of stroke per MRI on statin. has had similar previous presentations and received tPA at [facility] 5 weeks ago 2. TYpe 2 diabetes mellitus complicated by neuropathy A1C is 8.4 on lantus 10IU bid and ISS accuchecks ACHS home meds- liraglutide and empagliflozin on hold 3. History of cerebral AVM stable. 4. Hypertension: BP has been WNL. stable 5. Hyperlipidemia: on statin. lipid panel showed cholesterol of 208 and LDL of 132. 6. seizure disorder: on topamax 7. Obesity: nutrition on board 8. GERD: on famotidine. DVT prophylaxis; SCDs Disposition: transfer to PCU Inpatient E&M: 02722 Subs Hosp L2
[2019-08-22 11:36] LABS: Bedside Glucose 213 mg/dL (70-110)
--- NOTE | 2019-08-22 11:42 | NURSING ---
report called to pcu transferred with belongings to gabrielle Parada
--- NOTE | 2019-08-22 14:32 | CASEMGMT ---
SW did not complete a PHQ 9 as physician does not feel patient had a Stroke or TIA. Pricila JUAREZ MSW
[2019-08-22 16:11] LABS: Bedside Glucose 155 mg/dL (70-110)
--- NOTE | 2019-08-22 20:44 | CT_ITS ---
STUDY: CT BRAIN WITHOUT CONTRAST REASON FOR EXAM: Female, 38 years old. PERSISTENT HEADACHE POST TPA 08-20-19 -- HX:HTN,SEIZURES,CVA,AVM,DIABETES RADIATION DOSAGE (If Supplied By Facility): CTDIvol = ( 44.99 ) mGy, DLP = ( 762.36 ) mGycm TECHNIQUE: Transaxial CT imaging of the brain was performed without administration of intravenous contrast material. Individualized dose optimization techniques were used for this CT. COMPARISON: August 21, 2019 FINDINGS: Normal soft tissue structures. Normal calvarium. Normal size ventricles and extra-axial spaces for the patient''s age. Normal white matter tracts of the cerebral hemispheres. Normal basal ganglia and thalami. Normal brainstem. Normal cerebellum. There is no intracranial hemorrhage. There are no findings of an acute ischemic infarction. Normal visualized paranasal sinuses. CT/Brain/Head without Contrast IMPRESSION: Normal unenhanced CT scan of the brain. Electronically Signed: Bruno Remdond DO at 21:20 EDT Tel [phone], Service support ,
[2019-08-22] MEDS: Topiramate 100 MG Tablet PO (21:39)
[2019-08-22] MEDS: Atorvastatin Calcium 80 MG Tablet PO (21:39)
[2019-08-22 21:45] LABS: Bedside Glucose 143 mg/dL (70-110)
--- NOTE | 2019-08-22 23:14 | NURSING ---
Verbal report given to LYNDA Shah. She will resume care of this patient at this time.
--- NOTE | 2019-08-22 23:15 | NURSING ---
Report received from Claudia Vallejo RN on this pt. This nurse taking over care of this pt. at this time.
[2019-08-23 02:55] VITALS: PULSE 69
[2019-08-23 03:33] VITALS: BP 103/71; PULSE 69; RESP 16; TEMP 36.4; O2SAT 97
[2019-08-23] MEDS: traMADol 50 MG Tablet PO (03:49)
[2019-08-23 06:44] VITALS: PULSE 65
[2019-08-23] MEDS: Insulin Lispro 100 UNIT/ML INSULN.PEN SC (06:56)
[2019-08-23 07:05] LABS: Bedside Glucose 180 mg/dL (70-110)
[2019-08-23 07:17] VITALS: O2SAT 94
[2019-08-23 07:35] VITALS: BMI 36.0
[2019-08-23] MEDS: Gabapentin 300 MG Capsule PO ×2 (07:39→11:07)
[2019-08-23] MEDS: Senna/Docusate Sodium 1 Tablet 2 TABLET PO (07:45)
[2019-08-23 09:08] VITALS: BP 100/70; PULSE 76; RESP 18; TEMP 36.6; O2SAT 96
[2019-08-23] MEDS: Famotidine 20 MG Tablet PO (09:09)
[2019-08-23] MEDS: Topiramate 100 MG Tablet PO (09:10)
--- NOTE | 2019-08-23 10:16 | DCINST_ITS ---
- Discharge Diagnoses Current Active Problems: Current Active and Chronic Problems Acute ischemic stroke (Acute) HTN (hypertension) (Chronic) Right hemiparesis (Acute) Lower suspicion CVA, possible complex migraine versus conversion versus malingering You will use the following diet at home:: Cardiac Your food should be the consistency of: Regular Your liquids should be the consistency of: Regular/Thin Discharge Activity: Return to Normal Activity Weight Bearing Status: Weight bearing as tolerated Call your doctor if you observe: Shortness of breath, Fainting spells, Swelling in the ankles Instructions: Treating Epilepsy: Medications, Self-Care for Epilepsy, Seizures and Epilepsy, Migraine Headache: Stages and Treatment Allergies/Adverse Reactions: Allergies Sulfa (Sulfonamide Antibiotics) Allergy (Intermediate, Verified 08/14/18 10:50) Hives Iodinated Contrast Media Allergy (Mild, Verified 08/14/18 10:50) Rash uncontrollable itching nortriptyline Adverse Reaction (Severe, Verified 08/14/18 10:50) Other lowered blood sugar, caused irregular hear rythym metformin Adverse Reaction (Intermediate, Verified 08/14/18 10:50) Diarrhea morphine Adverse Reaction (Verified 08/14/18 10:50) Itching Medications to take at Discharge Liraglutide [Victoza 2-Ben] 1.8 units SQ DAILY 09/20/15 Gabapentin [Neurontin] 300 mg PO TIDCM 05/10/17 Acetaminophen with Codeine [Acetaminophen-Cod #3 Tablet] 1 tab PO Q6H PRN PRN 08/14/18 Empagliflozin [Jardiance] 25 mg PO DAILY 08/14/18 Aspirin 81 mg PO DAILY #30 tab.chew 08/23/19 Atorvastatin Calcium 40 mg PO QHS #30 tab 08/23/19 Topiramate [Topamax] 100 mg PO BID #60 tab 08/23/19 The following prescriptions were given: Aspirin 81 mg PO DAILY #30 tab.chew Transmission Status: Pending to [facility] Atorvastatin Calcium 40 mg PO QHS #30 tab Transmission Status: Pending to [facility] Topiramate [Topamax] 100 mg PO BID #60 tab Transmission Status: Received by [facility] Primary Care Physician: Jhonny Valladares MD [Primary Care Provider] - Please follow up with your Primary Care Physician in: one week Test Results: Test results from this visit will be discussed in further detail at your follow- up appointment, if applicable. Proposed Discharge Date: 08/23/19
--- NOTE | 2019-08-23 10:30 | PCM.DC.SUM ---
Discharge Date and Diagnosis Date of Admission: 08/20/19 Date of Discharge: 08/23/19 - Primary Discharge Diagnosis Active and Suspected Problems Right hemiparesis (Acute) Lower suspicion CVA, possible complex migraine versus conversion versus malingering - Secondary Discharge Diagnosis Chronic Problems AVM (arteriovenous malformation) brain (Chronic) HTN (hypertension) (Chronic) Seizure disorder (Chronic) Obesity (Chronic) HLD (hyperlipidemia) (Chronic) Type II diabetes mellitus (Chronic) Hospital Course and Treatment Imaging Results: Diagnostic Data Head/Neck CTA 08/20/19 22:29 IMPRESSION: No significant arterial narrowing in the head or neck. Electronically Signed: Giancarlo Schofield at 23:06 EDT Tel , Service support , Chest X-Ray 08/20/19 22:40 IMPRESSION: Mild retrocardiac opacity could represent atelectasis secondary to low lung volumes or mild pneumonia or edema. Electronically Signed: Giancarlo Schofield at 22:55 EDT Tel , Service support , Brain MRI 08/22/19 08:00 IMPRESSION: No change from 08/15/2018. No acute infarct. Dysgenesis of the corpus callosum. Electronically Signed: Bryan Anne MD at 9:17 EDT Tel , Service support , Brain CT 08/22/19 20:44 IMPRESSION: Normal unenhanced CT scan of the brain. 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 She was admitted through the ED on 08/20/2019 with a complaint of sudden onset right-sided hemiparesis with inability to walk and expressive aphasia for about an hour prior to admission in the ED. And [facility] neurology was contacted and after they discussed with the ED, decision was made to do a stat CT of the head and neck. This was negative for AV malformation and so patient was given TPA per neurology recommendation. NIH stroke scale was noted to be 8 prior to being given TPA. She was administered TPA and admitted to the ICU for monitoring. Right-sided hemiparesis improved patient remained stable. She had MRI of the brain on 08/22/2019 which showed no evidence of acute infarct and showed dysgenesis of the corpus callosum. [facility] teleneurology was consulted, and per their review of patient, felt that her symptoms were likely due to complex migraine versus malingering. Per the recommendation, her Topamax was increased to 100 mg twice daily. Patient was also evaluated by physical therapy and did well with therapy. She was also started on p.o. aspirin 81 mg daily per neurology recommendations. She remained stable and was discharged home on 08/23/2019 with a prescription for p.o. Topamax 100 mg twice a day and p.o. aspirin 81 mg daily. She is to follow-up with her primary care doctor within 1 week. Patient seen and examined prior to discharge. She had no complaints. She complained of a mild headache. Review of symptoms otherwise negative. Labs and vitals reviewed. Home medication reviewed and reconciled. o/e: Temp Pulse Resp BP Pulse Ox 97.9 F 76 18 100/70 96 08/23/19 09:08 08/23/19 09:08 08/23/19 09:08 08/23/19 09:08 08/23/19 09:08 08/23/19 08/22/19 08/22/19 06:54 21:37 15:52 POC Glucose 180 H 143 H 155 H General: Alert, Oriented x3, Cooperative, No apparent distress HEENT: Atraumatic, PERRLA, EOMI, Normocephalic Oral: Moist Mucosa Neck: Supple, No JVD, Negative Carotid Bruits Lungs: Clear to auscultation, Normal air movement, No rhonchi, No wheeze, No rales Cardiovascular: Regular rate, Regular Rhythm, Normal S1, Normal S2, No murmurs Abdomen: Bowel Sounds Present, Soft, Non Tender, Non-Distended, No Hepato-splenomegaly Extremities: No edema, Capillary Refill Less than 3 Seconds Skin: No rashes, No breakdown Musculoskeletal: No Tenderness to Palpation of Joints or Extremities Lymphatic: No Cervical, Supraclavicular, or Inguinal Adenopathy Neurological: - - normal power and tone in all extremities. Psych/Mental Status: Normal Affect, Appropriate, Alert and oriented to time, place, person, mood and affect Managed for discharge home today. - Physical Exam Vitals/I&O's: Vital Signs Temp Pulse Resp BP Pulse Ox 97.9 F 76 18 100/70 96 08/23/19 09:08 08/23/19 09:08 08/23/19 09:08 08/23/19 09:08 08/23/19 09:08 Oxygen Delivery Method Room Air Weight: 221 lb 9.033 oz Body Mass Index (BMI) 36.0 Finger Stick Blood Glucose 358 Intake and Output for Last 24 Hours 08/21/19 08/22/19 08/23/19 23:59 23:59 23:59 Intake Total 4929.34 / 4929.34 1103.33 / 1103.33 100 / 100 Output Total 5350 / 5350 850 / 850 Balance -420.66 / -420.66 253.33 / 253.33 100 / 100 Laboratory Results 08/22/19 11:30: POC Glucose 213 H 08/22/19 15:52: POC Glucose 155 H 08/22/19 21:37: POC Glucose 143 H 08/23/19 06:54: POC Glucose 180 H Current Medications Acetaminophen (Tylenol) 650 mg PO .X1 PRN PRN Reason: Temp > 99.6 F Acetaminophen (Tylenol) 650 mg PO Q6H PRN PRN PRN Reason: Pain Score 1-10/Temp > 100.7 F Last Admin: 08/22/19 18:26 Dose: 650 mg Documented by: Al Hydroxide/Mg Hydroxide (Mylanta Ii) 30 ml PO Q6H PRN PRN PRN Reason: Gastric Burning Albuterol Sulfate (Ventolin Aerosols) 2.5 mg INHALATION Q2H PRN PRN PRN Reason: SOB/Wheezing Atorvastatin Calcium (Lipitor) 80 mg PO QHS KOBY Last Admin: 08/22/19 21:39 Dose: 80 mg Documented by: Dextrose (D50w Syringe) 0 gm IV X1 PRN; Protocol PRN Reason: Hypoglycemia Famotidine (Pepcid) 20 mg PO BID [facility] Last Admin: 08/23/19 09:09 Dose: 20 mg Documented by: Gabapentin (Neurontin) 300 mg PO TIDCM [facility] Last Admin: 08/23/19 07:39 Dose: 300 mg Documented by: Glucagon () 1 mg IM .X1 PRN PRN Reason: Hypoglycemia Guaifenesin (Robitussin) 10 ml PO Q4H PRN PRN PRN Reason: COUGH Insulin Glargine (Lantus (Bkc)) 10 units SC BID [facility] Last Admin: 08/23/19 09:10 Dose: 10 u Documented by: Insulin Human Lispro (Humalog Kwikpen (Bk)) 0 unit SC ACHS [facility]; Protocol Last Admin: 08/23/19 06:56 Dose: 3 u Documented by: Labetalol HCl (Trandate) 20 mg IV X1 PRN PRN Reason: BLOOD PRESSURE Labetalol HCl (Trandate) 20 mg IV X1 PRN PRN Reason: BLOOD PRESSURE Magnesium Hydroxide (Milk Of Magnesia) 30 ml PO DAILY PRN PRN PRN Reason: Constipation Melatonin (Melatonin) 3 mg PO QHS PRN PRN PRN Reason: INSOMNIA Ondansetron HCl (Zofran) 4 mg IV Q8H PRN PRN PRN Reason: NAUSEA/VOMITING Last Admin: 08/21/19 17:39 Dose: 4 mg Documented by: Psyllium Hydrophilic Mucilloid (Metamucil) 1 packet PO DAILY PRN PRN PRN Reason: Constipation Senna/Docusate Sodium (Senokot-S, Cindy-Colace) 2 tablet PO BID PRN PRN Reason: Constipation Last Admin: 08/23/19 07:45 Dose: 2 tablet Documented by: Sodium Chloride () 10 - 40 ml IV UD PRN PRN Reason: SALINE FLUSH Throat Lozenges (Cepacol Sore Throat Lozenge) 1 lozenge MUCOUS MEM Q2H PRN PRN PRN Reason: SORE THROAT Topiramate (Topamax) 100 mg PO BID [facility] Last Admin: 08/23/19 09:10 Dose: 100 mg Documented by: Discharge Diet: Low fat/ Low Cholesterol Discharge Activity: Return to Normal Activity Weight Bearing Status: Weight bearing as tolerated Call your doctor if you observe: Shortness of breath, Fainting spells, Swelling in the ankles Home Medications: Medications to take at Discharge Liraglutide [Victoza 2-Ben] 1.8 units SQ DAILY 09/20/15 Gabapentin [Neurontin] 300 mg PO TIDCM 05/10/17 Acetaminophen with Codeine [Acetaminophen-Cod #3 Tablet] 1 tab PO Q6H PRN PRN 08/14/18 Empagliflozin [Jardiance] 25 mg PO DAILY 08/14/18 Aspirin 81 mg PO DAILY #30 tab.chew 08/23/19 Atorvastatin Calcium 40 mg PO QHS #30 tab 08/23/19 Topiramate [Topamax] 100 mg PO BID #60 tab 08/23/19 Following Prescrptions Were Given to Patient: Aspirin 81 mg PO DAILY #30 tab.chew Transmission Status: Received by [facility] Atorvastatin Calcium 40 mg PO QHS #30 tab Transmission Status: Received by [facility] Topiramate [Topamax] 100 mg PO BID #60 tab Transmission Status: Received by [facility] Primary Care Physician: Jhonny Valladares MD [Primary Care Provider] - Please follow up with your Primary Care Physician in: one week Patient Instructions: Treating Epilepsy: Medications, Self-Care for Epilepsy, Migraine Headache: Stages and Treatment, Seizures and Epilepsy Disposition: Home Minutes spent on discharge:: 40 Patient Condition:: Stable Medical Necessity - Tobacco Use Smoking Status: Never smoker Tobacco Use: Non-smoker Meaningful Use Info Meaningful Use Diagnoses (Choose all that apply): None applicable Inpatient E&M: 75665 Disch Hosp
--- NOTE | 2019-08-25 13:29 | CASEMGMT ---
LYNDA CM DC PHONE CALL DC DATE: 08.23.2019 DC DISPOSITION: home DC DIAGNOSIS: Acute ischemic stroke, HTN LACE/STRATA: 03/12 F/U APPTS MADE PRIOR TO DC: yes PRESCRIPTIONS ACQUIRED BY PT: yes Intro role of CM to patient via phone. Pt states she is doing well, no questions re: dc instructions, prescriptions, f/u. No care improvement suggestions given. Jenny MCKEE RN ACM
== END 2019-08-23 11:29 | disposition home or self-care (01) | DRG 102 ==
LOC: ED 23:23 → ICU 23:34 → PCU 08-22 12:03
PROVIDERS: Admitting Provider Family Medicine; Emergency Provider Emergency Medicine; PCP Family Medicine; Visit Provider Student in an Organized Health Care Education/Training Program
DX: G43.809 Other migraine, not intractable, without status migrainosus (principal); Q04.0 Congenital malformations of corpus callosum; G81.91 Hemiplegia, unspecified affecting right dominant side; R47.01 Aphasia; I10 Essential (primary) hypertension; E78.5 Hyperlipidemia, unspecified; G40.909 Epilepsy, unspecified, not intractable, without status epilepticus; R29.710 NIHSS score 10; M79.7 Fibromyalgia; E66.9 Obesity, unspecified; E11.65 Type 2 diabetes mellitus with hyperglycemia; E11.40 Type 2 diabetes mellitus with diabetic neuropathy, unspecified; M06.9 Rheumatoid arthritis, unspecified; K21.9 Gastro-esophageal reflux disease without esophagitis; Z87.891 Personal history of nicotine dependence; Z68.36 Body mass index [BMI] 36.0-36.9, adult; Z79.82 Long term (current) use of aspirin; Z86.73 Personal history of transient ischemic attack (TIA), and cerebral infarction without residual deficits; Z90.710 Acquired absence of both cervix and uterus
CPT/HCPCS: 51702; 70450; 70496; 70498; 70551; 71045; 80048; 80061; 82962; 83036; 83735; 84443; 84484; 85025; 85610; 85730; 92526; 93005; 93306; 96374; 96375; 97162; 97166; 97530; 97802; 99285; J2997; J7030; Q9967; A4216; J2405

== ENCOUNTER → 2019-08-29 12:18 | Outpatient (CLI) | payer MEDICARE, MEDICAID, SELFPAY ==
[2019-08-23 07:35] VITALS: BMI 36.0
== END ==
PROVIDERS: PCP Family Medicine; Referring Provider Family Medicine; Visit Provider Family Medicine
DX: N39.0 Urinary tract infection, site not specified (principal)
CPT/HCPCS: 87077; 87086; 87088; 87186

== ENCOUNTER 2019-12-10 22:28 | Emergency (ER) | payer MEDICARE, MEDICAID, SELFPAY ==
[2019-12-10 22:29] VITALS: BP 109/65; PULSE 85; RESP 18; TEMP 36.8; O2SAT 96; BMI 41.7
--- NOTE | 2019-12-10 22:31 | ED.DCSUM_ITS ---
History of Present Illness Chief Complaint: Back Informant: Patient Narrative: 39-year-old female presenting with back pain x2 days. Patient states she was lifting a dog and felt a pop in her back. She said pain since then. She states that she has numbness and tingling in the perineum. She states that she had urinary incontinence. She is not had a bowel movement since yesterday. Denies any fever or chills. She states she has a history of fibromyalgia but has not had pain like this. She has no history of back surgery. No dysuria or hematuria. Prior similar symptoms: No Recent Illness/Hospitalization: No Past Medical History - Allergies and Home Meds Allergies/Adverse Reactions: Allergies Sulfa (Sulfonamide Antibiotics) Allergy (Intermediate, Verified 12/10/19 22:34) Hives Iodinated Contrast Media Allergy (Mild, Verified 12/10/19 22:34) Rash uncontrollable itching nortriptyline Adverse Reaction (Severe, Verified 12/10/19 22:34) Other lowered blood sugar, caused irregular hear rythym metformin Adverse Reaction (Intermediate, Verified 12/10/19 22:34) Diarrhea morphine Adverse Reaction (Verified 12/10/19 22:34) Itching Primary Care Physician: Jhonny Valladares MD [Primary Care Provider] - Prior records reviewed: Yes Surgical History: cholecystectomy, hysterectomy, - - Embolization of vein in the uterus Smoking Status: Never smoker Alcohol: None Drugs: None - Family History Maternal Family History: Reports: - - Rheumatoid arthritis Paternal Family History: Reports: No pertinent history Review of Systems General: Denies: Chills, Fever Eyes: Denies: Visual changes - bilaterally, Diplopia ENT: Denies: Rhinorrhea, Sore throat Respiratory: Denies: Dyspnea, Cough, Dyspnea on exertion Gastrointestinal: Reports: Constipation. Denies: Abdominal pain, Nausea, Vomiting, Diarrhea, Melena, Hematochezia Genitourinary: Reports: - - Clement incontinence Musculoskeletal: Reports: Back pain Neurological: Reports: - - Decreased sensation in the perineum. Psych: Denies: Depression, Anxiety Endocrine: Denies: Polyuria, Polydipsia Hematologic: Denies: Easy bruising Physical Exam General: Obese Head: Normocephalic, Atraumatic Eyes: Perrl, EOMI Neck: Supple Cardiovascular: Regular rate Respiratory: No distress Abdomen: Soft Rectal: - - No rectal tone : - - Sensation is present in the perineum however it is decreased. Back: - - Tenderness to palpation diffusely over the lumbar spine. No midline spinal deformity or step-off. Skin: Normal color, No rash Neurological: Alert, Oriented x3 Psychological: Normal affect Diagnostic/Tx/Re-eval Laboratory Data 12/10/19 12/10/19 12/10/19 22:35 22:35 22:50 WBC 6.4 RBC 5.20 Hgb 14.3 Hct 43.7 MCV 84.0 MCH 27.5 MCHC 32.7 RDW Std Deviation 43.7 RDW Coeff of Quentin 14.4 Plt Count 266 MPV 10.3 Immature Gran % (Auto) 0.900 Neut % (Auto) 54.2 Lymph % (Auto) 31.0 Brooks % (Auto) 7.7 Eos % (Auto) 5.3 H Baso % (Auto) 0.9 Absolute Neuts (auto) 3.5 Absolute Lymphs (auto) 1.98 Nucleated RBC % 0 Sodium 136 Potassium 4.1 Chloride 103 Carbon Dioxide 25.0 Anion Gap 8 BUN 18 Creatinine 0.96 Estim Creat Clear Calc 62.84 Est GFR (MDRD) Af Amer 84 Est GFR (MDRD) Non-Af 69 BUN/Creatinine Ratio 18.8 Glucose 336 H Calcium 8.2 L Total Bilirubin 0.20 AST 204 H Alkaline Phosphatase 181 H Total Protein 7.2 Albumin 3.4 Globulin 3.8 Albumin/Globulin Ratio 0.9 Urine Color Straw Urine Clarity Clear Urine pH 6.0 Ur Specific [place] 1.015 Urine Protein Negative Urine Glucose (UA) 1000 H Urine Ketones 5 H Urine Occult Blood 10 H Urine Nitrite Negative Urine Bilirubin Negative Urine Urobilinogen Normal Ur Leukocyte Esterase 100 H Urine RBC 0 SEEN Urine WBC 5-10 SEEN Ur Squamous Epith Cells 10-25 SEEN Ur Renal Epithelial Cell 0-5 SEEN Urine Bacteria 3+ Urine Mucus 0 SEEN Urine Yeast RARE - Medical Decision Making She was seen and evaluated on arrival. Patient is having back pain for 2 days. She now is presenting with saddle anesthesia, urinary incontinence, absent rectal tone. Was able to void about 100 cc of urine. She retained 29 cc. The pain radiates into her bilateral lower extremities. She has difficulty ambulating. Patient initially had lab work drawn which is normal with exception of elevated LFTs. Patient is not having abdominal pain however. Although her postvoid residual appears to be okay I do believe that the patient's saddle anesthesia as well as absent rectal tone are concerning enough to have the patient transferred for MRI. Patient was amenable to this. Patient was given fentanyl in the ED for pain. She was also given IV fluids. Impression: 1. Back pain with concern for cauda equina syndrome 2. Elevated LFTs ED Disposition - Plan for ED Patient: Disposition: [facility] Referrals: Jhonny Valladares MD [Primary Care Provider] -
[2019-12-10 22:53] LABS: Absolute Lymphocyte Count 1.98 X10^3/uL (0.83-4.51); Absolute Neutrophil Count 3.5 X10^3/uL (2.0-7.7); Basophil# 0.06 X10^3/uL; Basophil% 0.9 % (0-1); Eosinophil# 0.34 X10^3/uL; Eosinophils% 5.3 % (0-5); Hematocrit 43.7 % (37-47); Hemoglobin 14.3 g/dL (12.0-15.0); Lymphocyte # 1.98 X10^3/ul (4.0); Mean Corp Hgb Conc 32.7 g/dL (32-36); Mean Corpuscular Hgb 27.5 pg (27.0-32.0); Mean Platelet Vol. 10.3 fl (6.2-12.0); Monocyte# 0.49 X10^3/uL; Monocyte% 7.7 % (0-10); NRBC Flagged by Analyzer 0 % (0-5); Neutrophil # 3.46 X10^3/uL (2.7-7.7); Neutrophil % 54.2 % (47-70); Platelet Count 266 K/mm3 (150-450); RBC Distribution Width CV 14.4 % (11.6-14.6); RBC Distribution Width SD 43.7 fl (35.1-43.9); White Blood Count 6.4 K/mm3 (4.4-11.0)
--- NOTE | 2019-12-10 22:55 | NURSING ---
scanned after voiding 22cc
[2019-12-10] MEDS: Ondansetron 4 MG/2 ML Vial IM (22:57)
[2019-12-10] MEDS: fentaNYL 100 MCG/2 ML Ampul 50 MCG IV (22:58)
[2019-12-10 22:59] LABS: Mucous, Urine 0 SEEN /hpf (<or=2+); Red Blood Cells-Urine 0 SEEN /hpf (0-5)
[2019-12-10 23:05] LABS: Color, Urine Straw (Yellow); Glucose, Dipstick 1000 mg/dl (Normal); Ketone-Dipstick 5 mg/dl (Negative); Leukocyte Esterase-Dipstick 100 /ul (Negative); Nitrite-Dipstick Negative (Negative); Occult Blood-Urine 10 /ul (Negative); Protein-Dipstick Negative (Negative); Specific Gravity, Urine 1.015 (1.002-1.030); Urine Bilirubin Dipstick Negative (Negative); Urine Clarity Clear (Clear); Urine Urobilinogen Normal (Normal)
[2019-12-10 23:12] LABS: Bacteria 3+ /hpf (None Seen); Squamous Epithelial Cells - UA 10-25 SEEN /hpf (5-10); White Blood Cells 5-10 SEEN /hpf (0-5)
[2019-12-10 23:14] LABS: Renal Epithelial Cells 0-5 SEEN /hpf (0-5)
[2019-12-10 23:15] LABS: Yeast-Urine RARE /hpf (None Seen)
[2019-12-10 23:29] LABS: ALB/GLOB Ratio 0.9 RATIO (0.9-2.4); Albumin, Serum 3.4 g/dL (3.2-5.0); Anion Gap 8 (5-15); BUN 18 mg/dL (7-18); BUN/Creat Ratio 18.8 RATIO (10-20); Calcium,Total 8.2 mg/dL (8.5-10.1); Chloride 103 mmol/L (98-107); Creatinine, Serum 0.96 mg/dL (0.55-1.02); EST Glomerular Filtration Rate 69 mL/min (>60); Est Glom Filt Rate - Afr Amer 84 mL/min (>60); Estimated Creatinine Clearance 62.84 ml/min; Globulin 3.8 g/dL (2.2-4.2); Glucose 336 mg/dL (74-106); Potassium 4.1 mmol/L (3.5-5.1); Protein, Total 7.2 g/dL (6.4-8.2); Sodium Level 136 mmol/L (136-145)
[2019-12-10 23:55] LABS: AST(SGOT) 202 U/L (15-37); Alanine Aminotransfer ALT/SGPT 379 U/L (13-56); Alkaline Phosphatase 177 U/L (45-117)
[2019-12-11] MEDS: 0.9% Normal Saline 1,000 ML 999 ML IV (00:05)
[2019-12-11] MEDS: fentaNYL 100 MCG/2 ML Ampul 50 MCG IV (00:06)
[2019-12-11 00:59] VITALS: BP 104/71; PULSE 71; RESP 17; O2SAT 98
== END 2019-12-11 01:02 | disposition short-term general hospital (02) ==
PROVIDERS: Emergency Provider Student in an Organized Health Care Education/Training Program; PCP Family Medicine
DX: M54.9 Dorsalgia, unspecified (principal); R79.89 Other specified abnormal findings of blood chemistry; Z88.2 Allergy status to sulfonamides; Z90.49 Acquired absence of other specified parts of digestive tract; Z90.710 Acquired absence of both cervix and uterus; R20.0 Anesthesia of skin; R20.2 Paresthesia of skin
CPT/HCPCS: 80053; 81001; 85025; 96361; 96372; 96374; 96376; 99285; J7030; A4216; J2405

== ENCOUNTER 2019-12-28 00:37 | Emergency (ER) | payer MEDICARE, MEDICAID, SELFPAY ==
[2019-12-28 00:38] VITALS: BP 145/88; PULSE 76; RESP 15; TEMP 36.2; O2SAT 97; BMI 35.9
--- NOTE | 2019-12-28 01:09 | ED.RN ---
PT REQUESTED THIS RN CALL HER MOTHER TO SEE IF SHE CAN COME UP AND BE WITH HER AND BRING HER CLOTHES. MOTHER STATES SHE WILL GO BY HER APARTMENT, GRAB CLOTHES AND BE UP
--- NOTE | 2019-12-28 01:17 | ED.VIS.GEN ---
History of Present Illness Chief Complaint: Headache Informant: Patient Narrative: Stated she has been under a lot of stress lately. She called the counseling center [facility] to speak to them. She does see a counselor for life related issues. [facility] she told them that she was frustrated and wanted to drive her car into a tree. Counseling center called EMS to evaluate the patient at home for her safety. When they arrived the patient not want to come to the door. She then aroused and they did give her a dose of Narcan as she was acting unresponsive. The patient stated she is not suicidal at this time and was not serious and just frustrated. She is having a migraine. She stated this afternoon she started having a left-sided achy gradual onset migraine. She has had these in the past. She takes Topamax for migraines. She has had these over the last 15 years. This feels similar to previous. She has photophobia and nausea. Denies any illicit drug use or alcohol use - Past Medical History (1) Acute ischemic stroke Status: Acute (2) Right hemiparesis Status: Acute Comment: Lower suspicion CVA, possible complex migraine versus conversion versus malingering (3) AVM (arteriovenous malformation) brain Status: Chronic (4) HLD (hyperlipidemia) Status: Chronic (5) HTN (hypertension) Status: Chronic (6) Obesity Status: Chronic (7) Seizure disorder Status: Chronic (8) Type II diabetes mellitus Status: Chronic (9) Right sided weakness Status: Suspected (10) Upper GI bleed Status: Suspected Past Medical History - Allergies and Home Meds Allergies/Adverse Reactions: Allergies Sulfa (Sulfonamide Antibiotics) Allergy (Intermediate, Verified 12/28/19 00:43) Hives Iodinated Contrast Media Allergy (Mild, Verified 12/28/19 00:43) Rash uncontrollable itching nortriptyline Adverse Reaction (Severe, Verified 12/28/19 00:43) Other lowered blood sugar, caused irregular hear rythym metformin Adverse Reaction (Intermediate, Verified 12/28/19 00:43) Diarrhea morphine Adverse Reaction (Verified 12/28/19 00:43) Itching Primary Care Physician: Jhonny Valladares MD [Primary Care Provider] - Prior records reviewed: Yes Past Medical History: - - Reviewed Surgical History: cholecystectomy, hysterectomy, - - Embolization of vein in the uterus Smoking Status: Never smoker Alcohol: None Drugs: None - Family History Maternal Family History: Reports: - - Rheumatoid arthritis Paternal Family History: Reports: No pertinent history Review of Systems General: Denies: Chills, Fever, Sweats Eyes: Denies: Visual changes - bilaterally, Diplopia ENT: Denies: Rhinorrhea, Sore throat Cardiovascular: Denies: Chest pain, Palpitations Respiratory: Denies: Dyspnea, Cough, Dyspnea on exertion Gastrointestinal: Denies: Abdominal pain, Nausea, Vomiting, Diarrhea, Melena, Hematochezia Genitourinary: Denies: Dysuria, Hematuria, Frequency Musculoskeletal: Denies: Back pain, Extremity Pain Skin: Denies: Rash, Wounds Neurological: Reports: Headache. Denies: Weakness, Numbness Psych: Denies: Depression, Anxiety, Suicidal thoughts, Suicidal ideations Physical Exam Vital Signs/Narrative: Vital Signs Temp Pulse Resp BP Pulse Ox 12/28/19 00:38 97.2 F L 76 15 145/88 H 97 General: Well nourished, Well developed, No Acute Distress Head: Normocephalic, Atraumatic Eyes: Perrl, EOMI ENT: Moist mucous membranes, No rhinorrhea Neck: Supple, Nontender Cardiovascular: Regular rate, Regular rhythm, No murmurs Respiratory: No distress, CTA bilaterally, Chest nontender Abdomen: Soft, Nontender, Nondistended, Normal bowel sounds Back: Nontender, Normal Inspection Extremities: Nontender, No edema Skin: Normal color, No rash Neurological: Alert, Oriented x3, Cranial nerves II-XII grossly intact, Normal Strength, Normal Sensation Psychological: Normal affect, Normal Mood Diagnostic/Tx/Re-eval - Medical Decision Making IV established. Screening lab work will be obtained and the patient will be seen by crisis. The patient's migraine will be treated.. Screening lab work was negative sent for diabetes with hyperglycemia. Crisis evaluated the patient. Patient is not suicidal homicidal at this time. She mentioned that statements to me earlier that she was not serious. She does not want herself. On reevaluation her headache is resolved will be discharged to follow-up with her counselor ED Disposition - Plan for ED Patient: Disposition: Home or Assisted Living Diagnosis: Migraine headache Instructions: ED Headache Unspecified Referrals: Jhonny Valladares MD [Primary Care Provider] - Counseling,Center [GROUP OF PHYSICIANS] -
[2019-12-28 01:45] VITALS: BP 115/69; PULSE 66; RESP 14; O2SAT 95
[2019-12-28] MEDS: Ketorolac 15 MG/ML Vial IV (01:50)
[2019-12-28 02:02] LABS: Absolute Lymphocyte Count 1.52 X10^3/uL (0.83-4.51); Absolute Neutrophil Count 3.4 X10^3/uL (2.0-7.7); Basophil# 0.03 X10^3/uL; Basophil% 0.5 % (0-1); Eosinophil# 0.37 X10^3/uL; Eosinophils% 6.3 % (0-5); Hematocrit 40.2 % (37-47); Lymphocyte # 1.52 X10^3/ul (4.0); Mean Corp Hgb Conc 32.3 g/dL (32-36); Mean Corpuscular Hgb 26.7 pg (27.0-32.0); Mean Corpuscular Volume 82.7 fL (81-99); Mean Platelet Vol. 10.5 fl (6.2-12.0); Monocyte# 0.46 X10^3/uL; Monocyte% 7.9 % (0-10); NRBC Flagged by Analyzer 0 % (0-5); Neutrophil # 3.44 X10^3/uL (2.7-7.7); Neutrophil % 58.8 % (47-70); Platelet Count 188 K/mm3 (150-450); RBC Distribution Width SD 41.6 fl (35.1-43.9); Red Blood Count 4.86 M/mm3 (4.2-5.4); White Blood Count 5.9 K/mm3 (4.4-11.0)
[2019-12-28 02:11] LABS: Internal QC Validated? YES +Cl - CLEAR BKGD; Pregnancy, Serum, hCG Quali. NEGATIVE Negative
[2019-12-28 02:14] LABS: Alcohol, Blood (Medical)-Serum < 3.0 mg/dL
[2019-12-28 02:22] LABS: Anion Gap 7 (5-15); BUN 19 mg/dL (7-18); Calcium,Total 8.7 mg/dL (8.5-10.1); Chloride 109 mmol/L (98-107); Creatinine, Serum 0.79 mg/dL (0.55-1.02); EST Glomerular Filtration Rate 86 mL/min (>60); Est Glom Filt Rate - Afr Amer 104 mL/min (>60); Estimated Creatinine Clearance 90.39 ml/min; Glucose 283 mg/dL (74-106); Potassium 3.4 mmol/L (3.5-5.1); Sodium Level 141 mmol/L (136-145)
--- NOTE | 2019-12-28 02:22 | ED.RN ---
CRISIS CONTACTED, JONNY IS [employer]
[2019-12-28 03:40] VITALS: BP 123/75; PULSE 64; RESP 13; O2SAT 98
== END 2019-12-28 03:54 | disposition home or self-care (01) ==
PROVIDERS: Emergency Provider Emergency Medicine; PCP Family Medicine
DX: G43.909 Migraine, unspecified, not intractable, without status migrainosus (principal); Z90.49 Acquired absence of other specified parts of digestive tract; Z86.73 Personal history of transient ischemic attack (TIA), and cerebral infarction without residual deficits; E78.5 Hyperlipidemia, unspecified; I10 Essential (primary) hypertension; E66.9 Obesity, unspecified; G40.909 Epilepsy, unspecified, not intractable, without status epilepticus; E11.9 Type 2 diabetes mellitus without complications; Q27.30 Arteriovenous malformation, site unspecified
CPT/HCPCS: 80048; 80320; 84703; 85025; 99285; A4216; G0480

== ENCOUNTER → 2020-01-10 09:26 | Outpatient (CLI) | payer MEDICARE, MEDICAID, SELFPAY ==
[2019-12-28 00:38] VITALS: BMI 35.9
--- NOTE | 2020-01-10 09:31 | RAD_ITS ---
STUDY: X-RAY - RIGHT SHOULDER REASON FOR EXAM: Female, 39 years old. Right shoulder pain. TECHNIQUE: 4 view(s) of the shoulder. COMPARISON: None. FINDINGS: Normal glenohumeral articulation. Normal acromioclavicular joint. Normal acromion. There is no acute fracture, dislocation or destructive osseous pathology. Normal humeral head and visualized proximal humerus. The soft tissue structures are unremarkable. Normal visualized pulmonary apex. RAD/Shoulder min 2 Views IMPRESSION: Normal x-ray examination of the shoulder. Electronically Signed: Quentin Moura DO at 17:00 EDT Tel [phone], Service support ,
== END ==
PROVIDERS: PCP Family Medicine; Referring Provider Family Medicine; Visit Provider Family Medicine
DX: M25.511 Pain in right shoulder (principal)
CPT/HCPCS: 73030

== ENCOUNTER → 2020-03-13 10:22 | Outpatient (CLI) | payer MEDICARE, MEDICAID, SELFPAY ==
[2020-03-13 13:12] LABS: ALB/GLOB Ratio 0.9 RATIO (0.9-2.4); AST(SGOT) 30 U/L (15-37); Alanine Aminotransfer ALT/SGPT 51 U/L (13-56); Albumin, Serum 3.7 g/dL (3.2-5.0); Alkaline Phosphatase 101 U/L (45-117); Anion Gap 7 (5-15); BUN 15 mg/dL (7-18); BUN/Creat Ratio 16.1 RATIO (10-20); Calcium,Total 8.8 mg/dL (8.5-10.1); Chloride 106 mmol/L (98-107); Cholesterol 224 mg/dL (200); Creatinine, Serum 0.93 mg/dL (0.55-1.02); EST Glomerular Filtration Rate 71 mL/min (>60); Est Glom Filt Rate - Afr Amer 86 mL/min (>60); Globulin 4.1 g/dL (2.2-4.2); Glucose 146 mg/dL (74-106); High Density Lipoprotein 46 mg/dL; Potassium 4.2 mmol/L (3.5-5.1); Protein, Total 7.8 g/dL (6.4-8.2); Sodium Level 138 mmol/L (136-145); Triglycerides 273 mg/dL; Very Low Density Lipoprotein 55 mg/dL (5-40)
[2020-03-14 13:59] LABS: Vitamin D,25 Hydroxy 15.2 ng/mL
== END ==
PROVIDERS: PCP Family Medicine; Referring Provider Family Medicine; Visit Provider Family Medicine
DX: E78.5 Hyperlipidemia, unspecified (principal); E55.9 Vitamin D deficiency, unspecified
CPT/HCPCS: 36415; 80053; 80061; 82306

== ENCOUNTER 2020-03-24 15:04 | Emergency (ER) | payer MEDICARE, MEDICAID, SELFPAY ==
[2020-03-24 15:06] VITALS: BP 134/96; PULSE 68; RESP 17; TEMP 37.2; O2SAT 95; BMI 37.0
--- NOTE | 2020-03-24 15:19 | ED.DCSUM_ITS ---
- ER Visit Summary Date of Service: 03/24/20 Chief Complaint: Back pain History of Present Illness: The patient is a 39 F presenting with back pain. Patient states she was outside and it was very windy. She was trying to fix a fence post and swung and hit her lower back. She fell to the ground but did not hit her head or lose consciousness. She has pain in her lower back that radiates to her right leg. She denies other injuries. Physical Examination: Vitals are stable. Patient is afebrile. Alert no acute distress. HEENT exam is unremarkable. Neck is supple. Lungs are clear and equal bilaterally. Heart is regular rate and rhythm. Abdomen is soft nontender nondistended. Back: Diffuse lower lumbar tenderness with no step-off. Extremities mild right anterior hip tenderness. Neurovascularly intact distally Skin is warm and dry. No focal neurologic deficit. Remainder of exam is unremarkable. Emergency Department Course and Treatment: Patient was given Dilaudid, Zofran IV. Lumbar spine x-ray shows no acute findings. Stable mild chronic degenerative change. Right hip x-ray shows normal x-ray examination of the pelvis and hip. No acute osseous injury. On reevaluation, she is resting comfortably. She is given prescription for Percocet. She is able to ambulate in the ED without difficulty. Advised to follow-up with her primary care physician. Advised return to ED for worsening complaints. Disposition: Discharge home Impression: Lumbar contusion This note was generated with [employer] dictation software. It may contain incorrect words, spelling, and punctuation that were not noted in review of the chart prior to signing ED Disposition - Plan for ED Patient: Disposition: Home or Assisted Living Instructions: ED Contusion Back Prescriptions: Oxycodone HCl/Acetaminophen [Percocet 5/325] 1 tab PO Q6H PRN PRN 2 Days #6 tab PRN Reason: Pain Prescription Printed Referrals: Jhonny Valladares MD [Primary Care Provider] -
[2020-03-24] MEDS: HYDROmorphone 0.5 MG/0.5 ML SYRINGE IV ×2 (15:35→16:55)
[2020-03-24] MEDS: Ondansetron 4 MG/2 ML Vial IV (15:35)
--- NOTE | 2020-03-24 15:45 | RAD_ITS ---
STUDY: X-RAY - LUMBAR SPINE REASON FOR EXAM: Female, 39 years old. PAIN S/P BEING HIT IN BACK BY FENCE POST TECHNIQUE: 3 view(s) of the lumbar spine were obtained. COMPARISON: August 01 2018 FINDINGS: Normal lumbar lordosis. There is no substantial scoliosis. There is a normal alignment of the vertebrae. There are expected age-related degenerative changes. Normal vertebral bodies and endplates. Normal disc space heights. The soft tissue structures are unremarkable. There is prior embolization coils in the left mid and lower abdomen and cholecystectomy clips. RAD/Lumbar Spine 2 or 3 Views IMPRESSION: No acute findings. Stable mild chronic degenerative change. Electronically Signed: Christiano Hernandez, at 16:08 EST Tel , Service support ,
--- NOTE | 2020-03-24 15:45 | RAD_ITS ---
STUDY: X-RAY - PELVIS AND RIGHT HIP REASON FOR EXAM: Female, 39 years old. PAIN S/P BEING HIT IN BACK BY FENCE POST TECHNIQUE: 3 views of the pelvis and hip. COMPARISON: None. FINDINGS: There is a non-specific bowel gas pattern. Normal visualized soft tissue structures. Normal bilateral iliac wings, sacroiliac joints and visualized sacrum. Normal bilateral superior and inferior pubic rami. Normal pubic symphysis. Normal bilateral ischial tuberosities. Normal visualized femoral head. Normal acetabulum. Normal hip joint. There are embolization coils in the left pelvis and surgical clips in the right pelvis. RAD/HIP, UNI W/ Pelvis 2-3 Views IMPRESSION: Normal x-ray examination of the pelvis and hip. No acute osseous injury. Electronically Signed: Christiano Hernandez, at 16:42 EST Tel , Service support ,
[2020-03-24 15:51] LABS: Bedside Glucose 90 mg/dL (70-110)
--- NOTE | 2020-03-24 16:50 | ED.DEP ---
ED Disposition - Plan for ED Patient: Instructions: ED Contusion Back Prescriptions: Oxycodone HCl/Acetaminophen [Percocet 5/325] 1 tab PO Q6H PRN PRN 2 Days #6 tab PRN Reason: Pain Prescription Printed Referrals: Jhonny Valladares MD [Primary Care Provider] -
[2020-03-24 17:08] VITALS: BP 124/80; PULSE 80; RESP 16; O2SAT 98
== END 2020-03-24 17:09 | disposition home or self-care (01) ==
LOC: ED 15:42
PROVIDERS: Emergency Provider Emergency Medicine; PCP Family Medicine
DX: S30.0XXA Contusion of lower back and pelvis, initial encounter (principal); X58.XXXA Exposure to other specified factors, initial encounter; M79.7 Fibromyalgia; E11.43 Type 2 diabetes mellitus with diabetic autonomic (poly)neuropathy; K31.84 Gastroparesis
CPT/HCPCS: 72100; 73502; 82962; 96374; 96375; 96376; 99285; A4216; J2405

== ENCOUNTER 2020-04-19 15:19 | Emergency (ER) | payer MEDICARE, MEDICAID, SELFPAY ==
[2020-04-19 15:21] VITALS: BP 128/64; PULSE 86; RESP 16; TEMP 36.9; O2SAT 98; BMI 36.3
[2020-04-19 15:36] LABS: Bedside Glucose 53 mg/dL (70-110)
--- NOTE | 2020-04-19 15:56 | EKG12_ITS ---
Test Reason : CP Blood Pressure : / mmHG Vent. Rate : 085 BPM Atrial Rate : 085 BPM P-R Int : 128 ms QRS Dur : 082 ms QT Int : 370 ms P-R-T Axes : 070 011 004 degrees QTc Int : 440 ms Normal sinus rhythm Low voltage QRS Confirmed by CESAR ELIZONDO, BRET ([id number]), field map editor LAURA STRAUSS ([id number]) on 04/24/2020 9:20:53 AM Referred By: IVAN Confirmed By:BRET GUERRERO MD
[2020-04-19 16:06] LABS: Bedside Glucose 72 mg/dL (70-110)
--- NOTE | 2020-04-19 16:06 | ED.DCSUM_ITS ---
History of Present Illness Chief Complaint: Chest Pain Informant: Patient Narrative: Patient is a 39-year-old female with a past medical history of RA, diabetes, brain AV malformation who presents to the emergency department for palpitations. She denies any significant chest pain or shortness of breath. She denies ever having this happen before. Whenever EMS arrived she was found to have a low blood sugar. She does take insulin at nighttime that is long-acting. She believes she has been eating appropriately. No other infectious symptoms including any nausea/vomiting or diarrhea. No cough. No fever/chills. She denies any abdominal pain. No urinary symptoms. No history of heart arrhythmia. No family history of cardiac disease at a young age. She denies any personal history of DVT/PE. She is on Plavix/aspirin for history of TIAs. Past Medical History - Allergies and Home Meds Allergies/Adverse Reactions: Allergies Sulfa (Sulfonamide Antibiotics) Allergy (Intermediate, Verified 04/19/20 15:28) Hives Iodinated Contrast Media Allergy (Mild, Verified 04/19/20 15:28) Rash uncontrollable itching nortriptyline Adverse Reaction (Severe, Verified 04/19/20 15:28) Other lowered blood sugar, caused irregular hear rythym metformin Adverse Reaction (Intermediate, Verified 04/19/20 15:28) Diarrhea morphine Adverse Reaction (Verified 04/19/20 15:28) Itching Primary Care Physician: Jhonny Valladares MD [Primary Care Provider] - 2 Days Prior records reviewed: Yes Surgical History: cholecystectomy, hysterectomy, - - Embolization of vein in the uterus Smoking Status: Former smoker - Family History Maternal Family History: Reports: - - Rheumatoid arthritis Paternal Family History: Reports: No pertinent history Review of Systems All systems negative except as indicated General: Reports: - - Feels shaky. Denies: Chills, Fever, Sweats Eyes: Denies: Visual changes - bilaterally, Diplopia ENT: Denies: Rhinorrhea, Sore throat Cardiovascular: Reports: Palpitations. Denies: Chest pain Respiratory: Denies: Dyspnea, Cough, Dyspnea on exertion Gastrointestinal: Denies: Abdominal pain, Nausea, Vomiting, Diarrhea Genitourinary: Denies: Dysuria, Hematuria, Frequency Musculoskeletal: Denies: Back pain, Extremity Pain Skin: Denies: Rash, Wounds Neurological: Denies: Headache, Weakness, Numbness Physical Exam Vital Signs/Narrative: Vital Signs Temp Pulse Resp BP Pulse Ox 04/19/20 15:21 98.5 F 86 16 128/64 H 98 Diagnostic/Tx/Re-eval Chest X-Ray - ED: - - X-ray interpreted by myself. Single view portable x-ray of the chest. Normal cardiac silhouette. Normal mediastinum. Lung cope are clear bilaterally. No pleural effusions. Agree with radiologist interpretation. - EKG Initial EKG Interpretation: - - Rate of 85 bpm and normal sinus rhythm. Normal intervals. Normal axis. No ST elevations or depressions. No T wave abnormalities. - Medical Decision Making Patient presents to the ED for palpitations. She was found to have a low blood sugar. She is a type II diabetic. She is eating crackers and peanut butter and repeat blood sugar has started to come up. We will hold off on giving the D50. Basic lab work being obtained along with EKG and chest x-ray. Patient's lab work did not reveal any significant acute abnormality. Chest x- ray negative for acute cardiopulmonary abnormality. She is feeling much better after eating. Her blood sugar has been trending upward. She does feel comfortable going home at this time. She is no longer having any palpitations. I believe that this was related to her hypoglycemia. She understands she is not to take her insulin if he is having low blood sugars. She is to continue to eat regularly. She is to follow-up with her PCP. Warning signs and symptoms for which to return to the ED are reviewed. She understands and is agreeable this plan. She is discharged home in stable condition. All questions answered. ED Disposition - Plan for ED Patient: Disposition: Home or Assisted Living Diagnosis: Hypoglycemia, Palpitations Instructions: Hypoglycemia (Low Blood Sugar), ED Palpitations Referrals: Jhonny Valladares MD [Primary Care Provider] - 2 Days
--- NOTE | 2020-04-19 16:17 | RAD_ITS ---
STUDY: X-RAY CHEST REASON FOR EXAM: Female, 39 years old. chest pain and palpitations that started today TECHNIQUE: 1 view COMPARISON: Prior chest radiograph of 08/20/2019 FINDINGS: Circular implanted device in the left chest wall is not changed in appearance from prior exam. The lungs are clear and expanded. There is no demonstrated pleural abnormality. Normal size heart. Normal mediastinum and jose daniel. Normal visualized pulmonary arteries. Normal visualized aortic arch and descending thoracic aorta. Normal visualized thoracic spine. Normal visualized ribs, clavicles, and shoulders. There is no demonstrated abnormality of the visualized soft tissue structures of the upper abdomen. RAD/Chest 1 View (Portable) IMPRESSION: No acute cardiopulmonary findings or changes. Negative for new consolidation, atelectasis or pleural effusion. Normal cardiac size without pulmonary venous congestion. Normal thoracic aorta. Electronically Signed: Sultana Wolfe MD at 16:38 EST , Service support ,
[2020-04-19 16:20] VITALS: BP 127/89; PULSE 80; RESP 15; O2SAT 94
[2020-04-19 16:22] LABS: Absolute Lymphocyte Count 2.24 X10^3/uL (0.83-4.51); Absolute Neutrophil Count 4.5 X10^3/uL (2.0-7.7); Basophil# 0.06 X10^3/uL; Basophil% 0.8 % (0-1); Eosinophil# 0.56 X10^3/uL; Eosinophils% 7.3 % (0-5); Hematocrit 46.4 % (37-47); Hemoglobin 15.4 g/dL (12.0-15.0); Lymphocyte # 2.24 X10^3/ul (4.0); Lymphocyte % 29.1 % (19-41); Mean Corp Hgb Conc 33.2 g/dL (32-36); Mean Corpuscular Hgb 26.9 pg (27.0-32.0); Mean Corpuscular Volume 81.1 fL (81-99); Monocyte# 0.35 X10^3/uL; Monocyte% 4.6 % (0-10); NRBC Flagged by Analyzer 0 % (0-5); Neutrophil # 4.45 X10^3/uL (2.7-7.7); Neutrophil % 57.8 % (47-70); Platelet Count 279 K/mm3 (150-450); RBC Distribution Width CV 14.5 % (11.6-14.6); RBC Distribution Width SD 41.8 fl (35.1-43.9); Red Blood Count 5.72 M/mm3 (4.2-5.4); White Blood Count 7.7 K/mm3 (4.4-11.0)
[2020-04-19 16:26] LABS: Mucous, Urine 0 SEEN /hpf (<or=2+); Red Blood Cells-Urine 0 SEEN /hpf (0-5); White Blood Cells 0 SEEN /hpf (0-5)
[2020-04-19 16:30] LABS: Anion Gap 9 (5-15); BUN 20 mg/dL (7-18); BUN/Creat Ratio 22.1 RATIO (10-20); Calcium,Total 9.5 mg/dL (8.5-10.1); Chloride 108 mmol/L (98-107); Creatinine, Serum 0.91 mg/dL (0.55-1.02); EST Glomerular Filtration Rate 74 mL/min (>60); Est Glom Filt Rate - Afr Amer 89 mL/min (>60); Estimated Creatinine Clearance 78.47 ml/min; Glucose 52 mg/dL (74-106); Sodium Level 138 mmol/L (136-145)
[2020-04-19 16:45] LABS: Color, Urine Yellow (Yellow); Glucose, Dipstick 1000 mg/dl (Normal); Ketone-Dipstick 5 mg/dl (Negative); Leukocyte Esterase-Dipstick Negative /ul (Negative); Nitrite-Dipstick Negative (Negative); Occult Blood-Urine Negative /ul (Negative); Protein-Dipstick 15 mg/dl (Negative); Urine Bilirubin Dipstick Negative (Negative); Urine Clarity Clear (Clear); Urine Urobilinogen Normal (Normal)
[2020-04-19 16:53] LABS: Bacteria RARE /hpf (None Seen); Squamous Epithelial Cells - UA 0-5 SEEN /hpf (5-10)
[2020-04-19 16:56] LABS: Internal QC Validated? YES +Cl - CLEAR BKGD; Pregnancy, Urine Negative Negative
[2020-04-19 17:00] VITALS: BP 140/68; PULSE 87; RESP 15; O2SAT 94
[2020-04-19 17:35] LABS: Bedside Glucose 71 mg/dL (70-110)
[2020-04-19 17:55] LABS: Bedside Glucose 96 mg/dL (70-110)
[2020-04-19 18:08] VITALS: BP 134/90; O2SAT 98
== END 2020-04-19 18:16 | disposition home or self-care (01) ==
PROVIDERS: Emergency Provider Emergency Medicine; PCP Family Medicine
DX: E11.649 Type 2 diabetes mellitus with hypoglycemia without coma (principal); R00.2 Palpitations; Z79.02 Long term (current) use of antithrombotics/antiplatelets; Z79.4 Long term (current) use of insulin; Z86.73 Personal history of transient ischemic attack (TIA), and cerebral infarction without residual deficits; Z87.891 Personal history of nicotine dependence; Z88.2 Allergy status to sulfonamides; Z90.49 Acquired absence of other specified parts of digestive tract; Z90.710 Acquired absence of both cervix and uterus
CPT/HCPCS: 71045; 80048; 81001; 81025; 82962; 84484; 85025; 93005; 99285; A4216

== ENCOUNTER → 2020-05-23 15:22 | Outpatient (CLI) | payer MEDICARE, MEDICAID, SELFPAY | LOC: MFPLAB 15:24 → LABSPEC 15:25 | PROVIDERS: PCP Family Medicine; Referring Provider Family Medicine; Visit Provider Family Medicine | DX: B34.9 Viral infection, unspecified (principal) ==

== ENCOUNTER 2020-06-30 19:22 | Emergency (ER) | payer MEDICARE, MEDICAID, SELFPAY ==
[2020-06-30 19:23] VITALS: BP 146/88; PULSE 74; RESP 20; TEMP 36.5; O2SAT 100; BMI 32.3
--- NOTE | 2020-06-30 19:27 | EKG12_ITS ---
Test Reason : CP Blood Pressure : / mmHG Vent. Rate : 067 BPM Atrial Rate : 067 BPM P-R Int : 132 ms QRS Dur : 080 ms QT Int : 410 ms P-R-T Axes : 043 015 032 degrees QTc Int : 433 ms Normal sinus rhythm Normal ECG Confirmed by ANIKA ELIZONDO, STACI ([id number]), managing editor LAURA STRAUSS ([id number]) on 07/02/2020 11:34:13 AM Referred By: MONTEZ ZEPEDA Confirmed By:STACI DONALDSON MD
[2020-06-30 19:48] LABS: Absolute Lymphocyte Count 2.16 X10^3/uL (0.83-4.51); Absolute Neutrophil Count 2.6 X10^3/uL (2.0-7.7); Basophil# 0.05 X10^3/uL; Basophil% 0.9 % (0-1); Eosinophil# 0.51 X10^3/uL; Hemoglobin 14.4 g/dL (12.0-15.0); Lymphocyte # 2.16 X10^3/ul (4.0); Mean Corpuscular Volume 84.4 fL (81-99); Mean Platelet Vol. 10.3 fl (6.2-12.0); Monocyte# 0.34 X10^3/uL; NRBC Flagged by Analyzer 0 % (0-5); Neutrophil % 45.6 % (47-70); Platelet Count 253 K/mm3 (150-450); RBC Distribution Width CV 14.5 % (11.6-14.6); RBC Distribution Width SD 44.3 fl (35.1-43.9); Red Blood Count 5.33 M/mm3 (4.2-5.4); White Blood Count 5.7 K/mm3 (4.4-11.0)
[2020-06-30 19:54] LABS: D-Dimer Quantitative (DVT/PE) 0.45 FEU/ug/m (0.27-0.49)
[2020-06-30 20:01] LABS: Anion Gap 7 (5-15); BUN 12 mg/dL (7-18); BUN/Creat Ratio 11.5 RATIO (10-20); Calcium,Total 8.8 mg/dL (8.5-10.1); Chloride 104 mmol/L (98-107); Creatinine, Serum 1.04 mg/dL (0.55-1.02); EST Glomerular Filtration Rate 63 mL/min (>60); Est Glom Filt Rate - Afr Amer 76 mL/min (>60); Estimated Creatinine Clearance 68.66 ml/min; Glucose 244 mg/dL (74-106); Potassium 3.3 mmol/L (3.5-5.1); Sodium Level 138 mmol/L (136-145)
--- NOTE | 2020-06-30 20:28 | RAD_ITS ---
HISTORY: CHEST PAIN RADIATES INTO LEFT ARM AND JAW ADDITIONAL HISTORY: None provided. EXAMINATION/TECHNIQUE: XR Chest 1 View AP/PA Number of images including paperwork: 1 COMPARISON: 04/19/2020 FINDINGS: LUNGS AND PLEURA: Low lung volumes. No consolidation, mass or pleural effusion. CARDIAC SILHOUETTE: Unremarkable. MEDIASTINUM AND DYLAN: Unremarkable. UPPER ABDOMEN: Unremarkable. SKELETON AND SOFT TISSUES: No acute skeletal findings. OTHER DEVICES AND HARDWARE: Electronic device projects over the lower chest. RAD/Chest 1 View (Portable) IMPRESSION: No acute cardiopulmonary abnormality. at 2050 Reported and signed by: Coretta Wheat MD Electronically Signed: Coretta Wheat MD at 20:50 EST Tel , Service support ,
--- NOTE | 2020-06-30 21:50 | ED.DCSUM_ITS ---
- ER Visit Summary Date of Service: 06/30/20 Chief Complaint: Chest pain History of Present Illness: The patient is a 39 F who presents with chest pain that began approximate 2 hours prior to arrival. Patient states the pain began while she was at work. Patient states the pain began rather suddenly. Patient describes a tightness and heaviness. Patient states the pain is over the left upper chest area. Patient states nothing makes it worse and nothing makes it better. Patient denies any nausea or vomiting. Patient denies any diaphoresis. Patient denies any cough or fevers. Patient denies any other symptoms. Patient's only cardiac risk factor is diabetes. Patient denies any PE risk factors. Physical Examination: Vital signs are stable. Patient is afebrile. Patient is in no acute distress. Oral mucosa is pink and moist. Neck is supple. Trachea is midline. There is no JVD noted. Heart was regular rate and rhythm. Lungs are clear and equal bilaterally. Abdomen is soft. Bowel sounds are normal. There is no tenderness. There is no rebound or guarding noted. Skin is warm dry. Cranial nerves II through XII are intact. There are no focal motor or sensory deficits noted. Extremities are intact. There is no calf tenderness or edema. Test Results: EKG was obtained. On my interpretation, there is a normal sinus rhythm with a rate of 67. There are no acute ST or T wave changes. ME interval, QRS interval, and QT interval were all within normal limits. [place] was normal. Portable 1 view chest x-ray was obtained. On my interpretation, lung cope are clear. There is normal cardiac silhouette. Bony thorax is normal. There is no acute process noted. Radiologist also interpreted the x-ray and agrees. CBC and basic metabolic profile were obtained and were essentially within normal limits. Troponin was normal. D-dimer was normal. Emergency Department Course and Treatment: Patient was given aspirin here. Patient is feeling better on reevaluation. Patient has a HEART score of 2. Patient was advised that this is low risk for acute cardiac event. Patient was instructed to follow-up with her primary care physician in 5 to 7 days for further evaluation. Patient understood and was agreeable with the plan. All questions were answered. Disposition: Discharge home Impression: Chest pain This note was generated with [employer] dictation software. It may contain incorrect words, spelling, and punctuation that were not noted in review of the chart prior to signing ED Disposition - Plan for ED Patient: Disposition: Home or Assisted Living Diagnosis: Chest pain Instructions: ED Chest Pain, Uncertain Cause Referrals: Jhonny Valladares MD [Primary Care Provider] - 3-5 Days
[2020-06-30 21:52] VITALS: O2SAT 97
[2020-06-30 21:53] VITALS: BP 114/76; PULSE 60; RESP 19; TEMP 36.7; O2SAT 97
[2020-06-30] MEDS: Aspirin 81 MG TAB.CHEW 324 MG PO (21:58)
[2020-06-30 22:00] VITALS: PULSE 78; RESP 16; TEMP 36.6; O2SAT 98
== END 2020-06-30 22:01 | disposition home or self-care (01) ==
PROVIDERS: Emergency Provider Emergency Medicine; PCP Family Medicine
DX: R07.9 Chest pain, unspecified (principal); E11.9 Type 2 diabetes mellitus without complications
CPT/HCPCS: 71045; 80048; 84484; 85025; 85379; 93005; 99285; A4216

== ENCOUNTER 2020-07-03 13:47 | Emergency (ER) | payer MEDICARE, MEDICAID, SELFPAY ==
[2020-07-03 13:48] VITALS: BP 115/79; PULSE 71; RESP 17; TEMP 36.4; O2SAT 100; BMI 38.8
--- NOTE | 2020-07-03 13:58 | EKG12_ITS ---
Test Reason : TRAUMA Blood Pressure : / mmHG Vent. Rate : 062 BPM Atrial Rate : 062 BPM P-R Int : 126 ms QRS Dur : 082 ms QT Int : 420 ms P-R-T Axes : 027 022 002 degrees QTc Int : 426 ms Normal sinus rhythm Normal ECG Confirmed by KHOI ELIZONDO, KE ([id number]), editorial specialist LAURA STRAUSS ([id number]) on 07/08/2020 7:55:48 AM Referred By: PARTH Confirmed By:BRIDGETTE WESTFALL MD
--- NOTE | 2020-07-03 13:58 | CT_ITS ---
STUDY: CT BRAIN WITHOUT CONTRAST REASON FOR EXAM: Female, 39 years old. Headache after trauma RADIATION DOSAGE (If Supplied By Facility): CTDIvol = ( 44.99 ) mGy, DLP = ( 779.24 ) mGycm TECHNIQUE: Transaxial CT imaging of the brain was performed without administration of intravenous contrast material. Individualized dose optimization techniques were used for this CT. COMPARISON: No relevant priors. FINDINGS: Normal soft tissue structures. Normal calvarium. Normal size ventricles and extra-axial spaces for the patient''s age. Normal white matter tracts of the cerebral hemispheres. Normal basal ganglia and thalami. Normal brainstem. Normal cerebellum. There is no intracranial hemorrhage. There are no findings of an acute ischemic infarction. Normal visualized paranasal sinuses. CT/Brain/Head without Contrast IMPRESSION: Normal unenhanced CT scan of the brain. Electronically Signed: Shelton Harvey MD at 14:47 EST , Service support ,
--- NOTE | 2020-07-03 13:58 | CT_ITS ---
STUDY: CT CHEST WITHOUT CONTRAST REASON FOR EXAM: Female, 39 years old. Pain after a fall RADIATION DOSAGE (If Supplied By Facility): CTDIvol = ( 18.23 ) mGy, DLP = ( 2331.22 ) mGycm TECHNIQUE: Transaxial imaging was performed without the administration of intravenous contrast material. Individualized dose optimization techniques were used for this CT. COMPARISON: None. FINDINGS: The lungs are normal. There is no demonstrated pleural abnormality. Normal heart and pericardium. There are calcifications of the coronary arteries. Normal mediastinum. Normal hilar regions. Normal unenhanced pulmonary arteries. Normal aorta arch and descending thoracic aorta. Normal osseous structures. No demonstrated fracture There is no demonstrated abnormality of the visualized upper abdomen. CT/Chest without Contrast IMPRESSION: Normal unenhanced CT Chest examination. Electronically Signed: Shelton Harvey MD at 14:55 EST , Service support ,
--- NOTE | 2020-07-03 13:59 | RAD_ITS ---
STUDY: X-RAY - RIGHT SHOULDER REASON FOR EXAM: Female, 39 years old. Pain after a fall TECHNIQUE: 3 view(s) of the shoulder. COMPARISON: None. FINDINGS: Normal glenohumeral articulation. Normal acromioclavicular joint. Normal acromion. Normal humeral head and visualized proximal humerus. The soft tissue structures are unremarkable. There is a triangular density just dorsal to the distal clavicle, but no donor site is noted. On the lateral view, there may be an avulsion fracture of the posterior acromion Normal visualized pulmonary apex. RAD/Shoulder min 2 Views IMPRESSION: Possible avulsion fracture of the posterior acromion seen only on the lateral view No demonstrated fracture of the humeral head or clavicle No upper rib fracture or pneumothorax Electronically Signed: Shelton Harvey MD at 14:54 EST , Service support ,
--- NOTE | 2020-07-03 13:59 | CT_ITS ---
STUDY: CT CERVICAL SPINE WITHOUT CONTRAST REASON FOR EXAM: Female, 39 years old. Pt fell off ladder into basement. +loc RADIATION DOSAGE (If Supplied By Facility): CTDIvol = ( 32.76 ) mGy, DLP = ( 697.57 ) mGycm TECHNIQUE: High resolution transaxial imaging was performed without contrast material. Sagittal and coronal images were reconstructed. Individualized dose optimization techniques were used for this CT. COMPARISON: None FINDINGS: Normal craniovertebral junction. Normal anterior atlantoaxial articulation. Normal odontoid process. There is straightening of the normal cervical lordosis. Normal vertebral bodies and posterior osseous elements. C2-3: Normal endplates. Normal disc height and morphology. Normal central canal and intervertebral neuroforamina. C3-4: Normal endplates. Normal disc height and morphology. Normal central canal and intervertebral neuroforamina. C4-5: Normal endplates. Normal disc height and morphology. Normal central canal and intervertebral neuroforamina. C5-6: Normal endplates. Normal disc height and morphology. Normal central canal and intervertebral neuroforamina. C6-7: Normal endplates. Normal disc height and morphology. Normal central canal and intervertebral neuroforamina. C7-T1: Normal endplates. Normal disc height and morphology. Normal central canal and intervertebral neuroforamina. Normal visualized soft tissue structures. CT/Spine Cervical without Contras IMPRESSION: No acute traumatic abnormality Electronically Signed: Shelton Harvey MD at 14:46 EST , Service support ,
--- NOTE | 2020-07-03 13:59 | RAD_ITS ---
STUDY: X-RAY - PELVIS AND RIGHT HIP REASON FOR EXAM: Female, 39 years old. Pain after a fall TECHNIQUE: 3 views of the pelvis and hip. COMPARISON: None. FINDINGS: There is a non-specific bowel gas pattern. Normal visualized soft tissue structures. Normal bilateral iliac wings, sacroiliac joints and visualized sacrum. Normal bilateral superior and inferior pubic rami. Normal pubic symphysis. Normal bilateral ischial tuberosities. Normal visualized femoral head. Normal acetabulum. Normal hip joint. RAD/HIP, UNI W/ Pelvis 2-3 Views IMPRESSION: Normal x-ray examination of the pelvis and hip. Electronically Signed: Shelton Harvey MD at 14:56 EST , Service support ,
--- NOTE | 2020-07-03 14:13 | ED.DCSUM_ITS ---
- ER Visit Summary Date of Service: 07/03/20 Chief Complaint: Fall, multiple injuries History of Present Illness: The patient is a 39 F who presents after a fall. She was apparently up on a ladder and she fell approximately 6 feet into the basement of her business. She had a prolonged extrication time due to this. She currently is complaining of neck, chest, right shoulder, right hip and right ankle pain. EMS was concerned because they thought she had a shortening of the right leg and could not feel a pulse in her right foot. The patient states she is currently on aspirin and Plavix. There was positive loss of consciousness due to the fall. Physical Examination: Vital signs reviewed. HEENT exam shows no evidence of trauma. She has no tenderness of the head or face. Her cervical spine is diffusely tender. Cervical collar is in place by EMS. Heart is regular rate a nd rhythm. Lungs are clear to auscultation bilaterally. She does have midsternal chest discomfort. Her abdomen is soft and nontender. Her back was nontender upon evaluation with logroll. She does have tenderness of the right shoulder diffusely, right hip at the greater trochanter and right ankle diffusely. There are no deformities of these areas. She does have bilateral PT pulses which are dopplerable. Her feet are warm. She has limited range of motion of the right shoulder, right hip and right ankle joint secondary to pain. Her GCS is 15. She has equal strength and sensation bilaterally. Test Results: EKG is sinus rhythm with a rate of 62. No ischemic changes. Laboratory studies are unremarkable. CAT scan of the head, cervical spine, chest, abdomen pelvis all are unremarkable. X-rays of the right ankle and right hip are normal as well. Right shoulder x-ray reveals a possible posterior acromial fracture. Emergency Department Course and Treatment: The patient's work-up is negative except for this possible posterior acromial fracture. She is tender in the shoulder so I will give her a sling for comfort. She was given fentanyl and was requesting more pain so I gave her Tylenol. At this time I feel the patient be discharged home. She will take NSAIDs for her pain at home. She will ice and areas that are sore. I will give her orthopedics for follow-up. Treatment Plan: [] Disposition: Discharge Impression: Right acromion fracture Right ankle contusion Fall This note was generated with Dragon dictation software. It may contain incorrect words, spelling, and punctuation that were not noted in review of the chart prior to signing ED Disposition - Plan for ED Patient: Disposition: Home or Assisted Living Instructions: ED Mechanical Fall Referrals: Jhonny Valladares MD [Primary Care Provider] - Fam Bar DO [STAFF PHYSICIAN] -
--- NOTE | 2020-07-03 14:14 | CT_ITS ---
STUDY: CT ABDOMEN AND PELVIS WITHOUT CONTRAST REASON FOR EXAM: Female, 39 years old. Pain after fall RADIATION DOSAGE (If Supplied By Facility): CTDIvol = ( 18.23 ) mGy, DLP = ( 2331.22 ) mGycm TECHNIQUE: Transaxial images were obtained from the dome of the diaphragm to the symphysis pubis without oral contrast, and without intravenous contrast. Sagittal and coronal images were reconstructed. Individualized dose optimization techniques were used for this CT. COMPARISON: None. FINDINGS: The visualized lung bases are unremarkable. The visualized portions of the heart are within normal limits. Normal liver. There are surgical clips in the gallbladder fossa consistent with a prior cholecystectomy. Normal spleen. Normal pancreas. Normal bilateral adrenal glands. No obstructive uropathy, punctate nonobstructing stones noted in the left kidney. Normal visualized stomach. Normal small intestine. Normal colon. The appendix is visualized and appears normal. Appendix best seen on coronal recon images 59-68 Normal abdominal aorta. Normal inferior vena cava. Normal retroperitoneum. Normal urinary bladder. Normal abdominal wall. No demonstrated vertebral body or pelvic fracture CT/Abdomen/Pelvis without Cont IMPRESSION: No suspicious solid organ abnormality, nonobstructing left nephrolithiasis No free intraperitoneal fluid, air, or suspicious adenopathy No demonstrated fracture Electronically Signed: Shelton Harvey MD at 14:58 EST , Service support ,
--- NOTE | 2020-07-03 14:15 | RAD_ITS ---
STUDY: X-RAY - RIGHT ANKLE REASON FOR EXAM: Female, 39 years old. Pain after fall TECHNIQUE: 3 view(s) of the ankle. COMPARISON: None. FINDINGS: Evidence of old healed distal tibial and fibular fractures. Old ununited medial malleolar fracture seen on the oblique view. Normal medial and lateral malleoli. Normal tibiotalar articulation and ankle mortise. Normal visualized talus and calcaneus. The visualized subtalar, talonavicular, calcaneocuboid and tarsal articulations are normal. The soft tissue structures are unremarkable. RAD/Ankle min 3 Views IMPRESSION: Old distal tibial and fibular fractures, no acute fracture or suspicious osseous lesion Electronically Signed: Shelton Harvey MD at 14:57 EST , Service support ,
[2020-07-03 14:29] LABS: Absolute Lymphocyte Count 1.85 X10^3/uL (0.83-4.51); Absolute Neutrophil Count 2.6 X10^3/uL (2.0-7.7); Basophil# 0.05 X10^3/uL; Eosinophil# 0.36 X10^3/uL; Eosinophils% 6.9 % (0-5); Hematocrit 41.7 % (37-47); Hemoglobin 13.5 g/dL (12.0-15.0); Lymphocyte # 1.85 X10^3/ul (4.0); Lymphocyte % 35.3 % (19-41); Mean Corp Hgb Conc 32.4 g/dL (32-36); Mean Corpuscular Hgb 26.5 pg (27.0-32.0); Mean Corpuscular Volume 81.9 fL (81-99); Mean Platelet Vol. 10.2 fl (6.2-12.0); Monocyte# 0.37 X10^3/uL; Monocyte% 7.1 % (0-10); NRBC Flagged by Analyzer 0 % (0-5); Neutrophil # 2.58 X10^3/uL (2.7-7.7); Neutrophil % 49.1 % (47-70); Platelet Count 236 K/mm3 (150-450); RBC Distribution Width CV 14.5 % (11.6-14.6); RBC Distribution Width SD 42.9 fl (35.1-43.9); Red Blood Count 5.09 M/mm3 (4.2-5.4); White Blood Count 5.2 K/mm3 (4.4-11.0)
[2020-07-03 14:35] LABS: Anion Gap 10 (5-15); BUN 14 mg/dL (7-18); Calcium,Total 9.2 mg/dL (8.5-10.1); Chloride 108 mmol/L (98-107); EST Glomerular Filtration Rate 66 mL/min (>60); Est Glom Filt Rate - Afr Amer 80 mL/min (>60); Estimated Creatinine Clearance 68.64 ml/min; Glucose 103 mg/dL (74-106); Potassium 3.5 mmol/L (3.5-5.1); Sodium Level 140 mmol/L (136-145)
[2020-07-03] MEDS: fentaNYL 100 MCG/2 ML Ampul 50 MCG IV (14:39)
[2020-07-03 14:40] VITALS: BP 127/83; PULSE 64; RESP 10; O2SAT 94
[2020-07-03 14:48] LABS: Prothrombin Time (Protime)PT. 12.7 SECONDS (11.7-14.9)
[2020-07-03 15:04] VITALS: BP 125/80; PULSE 63; RESP 11; O2SAT 94
[2020-07-03] MEDS: Acetaminophen 500 MG Tablet 1000 MG PO (15:40)
[2020-07-03 15:41] VITALS: BP 132/100; PULSE 78; RESP 21; O2SAT 98
[2020-07-03 16:14] VITALS: BP 124/78; PULSE 69; RESP 16; O2SAT 98
== END 2020-07-03 16:15 | disposition home or self-care (01) ==
PROVIDERS: Emergency Provider Emergency Medicine; PCP Family Medicine
DX: S42.121A Displaced fracture of acromial process, right shoulder, initial encounter for closed fracture (principal); S90.01XA Contusion of right ankle, initial encounter; W11.XXXA Fall on and from ladder, initial encounter; Z79.02 Long term (current) use of antithrombotics/antiplatelets; Z79.82 Long term (current) use of aspirin
CPT/HCPCS: 70450; 71250; 72125; 73030; 73502; 73610; 74176; 80048; 85025; 85610; 93005; 99285; J7030; A4216

== ENCOUNTER 2020-07-06 17:04 | Emergency (ER) | payer MEDICARE, MEDICAID, SELFPAY ==
[2020-07-06 17:04] VITALS: BP 153/97; PULSE 77; RESP 18; TEMP 36.3; O2SAT 98; BMI 32.3
--- NOTE | 2020-07-06 17:22 | CT_ITS ---
STUDY: CT BRAIN WITHOUT CONTRAST REASON FOR EXAM: Female, 39 years old. head injury on plavix RADIATION DOSAGE (If Supplied By Facility): CTDIvol = ( 44.99 ) mGy, DLP = ( 745.49 ) mGycm TECHNIQUE: Transaxial CT imaging of the brain was performed without administration of intravenous contrast material. Individualized dose optimization techniques were used for this CT. COMPARISON: 07/03/2020 FINDINGS: Normal soft tissue structures. Normal calvarium. Normal size ventricles and extra-axial spaces for the patient''s age. Normal white matter tracts of the cerebral hemispheres. Normal basal ganglia and thalami. Normal brainstem. Normal cerebellum. There is no intracranial hemorrhage. There are no findings of an acute ischemic infarction. Normal visualized paranasal sinuses. CT/Brain/Head without Contrast IMPRESSION: Continued negative CT of the brain. Electronically Signed: Guillermo Echevarria MD at 17:52 EST , Service support ,
--- NOTE | 2020-07-06 17:23 | ED.DCSUM_ITS ---
- ER Visit Summary Date of Service: 07/06/20 Chief Complaint: Status post fall with head injury feels more cloudy today and headache. History of Present Illness: The patient is a 39 F G of prior CVA, TIA, seizures, migraine headaches, rheumatoid arthritis, AV malformation left side of the brain and diabetes. Reportedly fell the other day at work down a ladder about 5 to 6 feet. Hit the back of her head positive LOC. Prolonged extrication due to she fell in the basement. She was brought in here an extensive work-up including CAT scans and x-rays. Showed a right AC fracture. The CAT scans of her head neck were unremarkable. Patient states she feels more cloudy today and has been having a headache. She is currently on Plavix and aspirin. For her prior CVA and TIAs. Physical Examination: White female no acute distress vital signs stable afebrile. Significant other at bedside. H EENT exam pupils are reactive laser motions are intact. No obvious signs of facial trauma. Small contusion posterior scalp no laceration. C-spine nontender. Trachea midline. Lungs elaina ar to auscultation bilaterally. Heart regular rhythm no murmur. Abdomen soft nontender normal bowel sounds no peritoneal signs. No bruising. Pelvic girdle intact. Patient is moving all 4 extremities. She has mild tenderness around her AC joint of her right shoulder which was reportedly seen as a fracture on her recent trauma films. Neurologically she is awake and alert. She is acting appropriately. She is moving all 4 extremities. She does day and month. She has normal speech. Test Results: CAT scan of the brain without contrast showed no acute abnormality. Read by the radiologist and reviewed by me. Repeat exam patient is doing well at 5:57 PM. Emergency Department Course and Treatment: Patient recent fall and head injury complaint of headache, feels more confused and she is on Plavix and aspirin. I will reCAT scan her to rule out a delayed intracranial bleed. Treatment Plan: Injury instructions. Disposition: discharge Impression: Acute recent fall with closed head injury/concussion Anticoagulated Plavix and aspirin. 2 diabetes History of CVA and TIA This note was generated with [employer] dictation software. It may contain incorrect words, spelling, and punctuation that were not noted in review of the chart prior to signing ED Disposition - Plan for ED Patient: Referrals: Jhonny Valladares MD [Primary Care Provider] -
[2020-07-06] MEDS: Ondansetron ODT 4 MG Tablet PO (17:30)
--- NOTE | 2020-07-06 17:58 | ED.DEP ---
ED Disposition - Plan for ED Patient: Disposition: Home or Assisted Living Instructions: ED Head Injury (Adult) Referrals: Jhonny Valladares MD [Primary Care Provider] - 1 Week if not improving Additional Instructions: Tylenol for pain.
== END 2020-07-06 18:02 | disposition home or self-care (01) ==
PROVIDERS: Emergency Provider Emergency Medicine; PCP Family Medicine
DX: S06.0X1A Concussion with loss of consciousness of 30 minutes or less, initial encounter (principal); W11.XXXA Fall on and from ladder, initial encounter; Y93.9 Activity, unspecified; Y92.89 Other specified places as the place of occurrence of the external cause; Y99.0 Civilian activity done for income or pay; E11.9 Type 2 diabetes mellitus without complications; M06.9 Rheumatoid arthritis, unspecified; Z86.73 Personal history of transient ischemic attack (TIA), and cerebral infarction without residual deficits; Z79.02 Long term (current) use of antithrombotics/antiplatelets; Z79.82 Long term (current) use of aspirin
CPT/HCPCS: 70450; 99283

== ENCOUNTER 2020-07-09 17:41 | Emergency (ER) | payer MEDICARE, MEDICAID, SELFPAY ==
[2020-07-09 17:42] VITALS: BP 138/88; PULSE 84; RESP 16; TEMP 36.3; O2SAT 96; BMI 39.1
--- NOTE | 2020-07-09 17:55 | CT_ITS ---
STUDY: CT BRAIN WITHOUT CONTRAST REASON FOR EXAM: Female, 39 years old. Headache RADIATION DOSAGE (If Supplied By Facility): DLP = ( 829.85 ) mGycm TECHNIQUE: Transaxial CT imaging of the brain was performed without administration of intravenous contrast material. Individualized dose optimization techniques were used for this CT. COMPARISON: CT head 07/06/2020 FINDINGS: There is no acute bleed or infarct. There are normal white matter tracts. The ventricles are normal in configuration. There is no hydrocephalus. The visualized paranasal sinuses are clear. The mastoid air cells are well aerated. There is no skull fracture. CT/Brain/Head without Contrast IMPRESSION: No acute intracranial abnormality. Electronically Signed: Harshad Mchugh MD at 18:52 EST Tel , Service support ,
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
--- NOTE | 2020-07-09 18:00 | NURSING ---
ACCEPTED AT [facility], [facility]
[2020-07-09 18:35] LABS: Absolute Lymphocyte Count 1.58 X10^3/uL (0.83-4.51); Absolute Neutrophil Count 3.4 X10^3/uL (2.0-7.7); Basophil# 0.05 X10^3/uL; Basophil% 0.8 % (0-1); Eosinophil# 0.42 X10^3/uL; Eosinophils% 7.1 % (0-5); Hematocrit 43.2 % (37-47); Hemoglobin 13.6 g/dL (12.0-15.0); Lymphocyte # 1.58 X10^3/ul (4.0); Lymphocyte % 26.8 % (19-41); Mean Corp Hgb Conc 31.5 g/dL (32-36); Mean Corpuscular Hgb 26.6 pg (27.0-32.0); Mean Corpuscular Volume 84.4 fL (81-99); Mean Platelet Vol. 10.5 fl (6.2-12.0); Monocyte# 0.45 X10^3/uL; Monocyte% 7.6 % (0-10); NRBC Flagged by Analyzer 0 % (0-5); Neutrophil # 3.37 X10^3/uL (2.7-7.7); Neutrophil % 57.2 % (47-70); Platelet Count 227 K/mm3 (150-450); RBC Distribution Width CV 14.5 % (11.6-14.6); RBC Distribution Width SD 44.4 fl (35.1-43.9); Red Blood Count 5.12 M/mm3 (4.2-5.4); White Blood Count 5.9 K/mm3 (4.4-11.0)
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
--- NOTE | 2020-07-09 18:36 | RAD_ITS ---
STUDY: X-RAY - LUMBAR SPINE REASON FOR EXAM: Female, 39 years old. Pain TECHNIQUE: 3 view(s) of the lumbar spine were obtained. COMPARISON: None FINDINGS: There is no evidence of fracture or dislocation in the lumbar spine. The vertebral body heights and disc spaces are well-maintained. Moderate osteoarthrosis is present at the L1-L2 level. Mild osteophytosis is present at the L4-L5 level. RAD/Lumbar Spine 2 or 3 Views IMPRESSION: No fracture or dislocation in the lumbar spine. Degenerative changes described above. Electronically Signed: Harshad Mchugh MD at 19:03 EST Tel , Service support ,
[2020-07-09 18:41] LABS: International Normalized Ratio 0.9
[2020-07-09 18:42] LABS: Partial Thromboplast Time 24.7 Seconds (24.1-36.2)
[2020-07-09 18:51] VITALS: BP 121/89; PULSE 73; RESP 16; O2SAT 98
[2020-07-09 18:51] LABS: ALB/GLOB Ratio 0.9 RATIO (0.9-2.4); AST(SGOT) 27 U/L (15-37); Alanine Aminotransfer ALT/SGPT 35 U/L (13-56); Albumin, Serum 3.4 g/dL (3.2-5.0); Alkaline Phosphatase 104 U/L (45-117); Anion Gap 7 (5-15); BUN 16 mg/dL (7-18); BUN/Creat Ratio 15.2 RATIO (10-20); Calcium,Total 8.5 mg/dL (8.5-10.1); Chloride 107 mmol/L (98-107); Creatinine, Serum 1.05 mg/dL (0.55-1.02); EST Glomerular Filtration Rate 62 mL/min (>60); Est Glom Filt Rate - Afr Amer 75 mL/min (>60); Estimated Creatinine Clearance 68.01 ml/min; Globulin 3.6 g/dL (2.2-4.2); Glucose 256 mg/dL (74-106); Potassium 4.1 mmol/L (3.5-5.1); Sodium Level 140 mmol/L (136-145)
[2020-07-09 18:54] LABS: Lactic Acid 1.6 mmol/L (0.4-1.9)
[2020-07-09 18:56] LABS: Internal QC Validated? YES +Cl - CLEAR BKGD; Pregnancy, Serum, hCG Quali. NEGATIVE Negative
[2020-07-09 19:02] LABS: Alcohol, Blood (Medical)-Serum < 3.0 mg/dL
[2020-07-09 19:06] VITALS: BP 120/86; PULSE 67; RESP 16; O2SAT 98
[2020-07-09 19:32] LABS: Amphetamine Urine VISTA NEGATIVE (<1000 ng/mL); Barbiturate Urine VISTA NEGATIVE (< 200 ng/mL); Benzodiazepine Urine VISTA NEGATIVE (< 200 ng/mL); Cocaine Urine VISTA NEGATIVE (< 300 ng/mL); Ecstacy Urine VISTA NEGATIVE (< 500 ng/mL); Methadone Urine VISTA NEGATIVE (< 300 ng/mL); PCP Urine VISTA NEGATIVE (< 25 ng/mL); THC Urine VISTA NEGATIVE (< 50 ng/mL); Vista UDS pH Range 5
[2020-07-09 19:46] VITALS: BP 128/82; PULSE 70; RESP 24; O2SAT 98
[2020-07-09 20:49] VITALS: BP 121/79; PULSE 87; RESP 20; O2SAT 97
[2020-07-09] MEDS: Metoclopramide 10 MG/2 ML Vial 5 MG IV (21:01)
[2020-07-09 21:24] VITALS: BP 136/86; PULSE 83; RESP 18; O2SAT 97
== END 2020-07-09 21:56 | disposition short-term general hospital (02) ==
PROVIDERS: Emergency Provider Emergency Medicine; PCP Family Medicine
DX: G81.91 Hemiplegia, unspecified affecting right dominant side (principal); S00.81XA Abrasion of other part of head, initial encounter; V49.9XXA Car occupant (driver) (passenger) injured in unspecified traffic accident, initial encounter; Y92.410 Unspecified street and highway as the place of occurrence of the external cause; Y99.9 Unspecified external cause status; E11.9 Type 2 diabetes mellitus without complications; E66.9 Obesity, unspecified; E78.5 Hyperlipidemia, unspecified; G40.909 Epilepsy, unspecified, not intractable, without status epilepticus; I10 Essential (primary) hypertension; Z87.891 Personal history of nicotine dependence; Z88.2 Allergy status to sulfonamides; Z90.49 Acquired absence of other specified parts of digestive tract; Z90.710 Acquired absence of both cervix and uterus; Q28.2 Arteriovenous malformation of cerebral vessels; Z79.899 Other long term (current) drug therapy; Z79.02 Long term (current) use of antithrombotics/antiplatelets; Z79.82 Long term (current) use of aspirin; M79.606 Pain in leg, unspecified
CPT/HCPCS: 70450; 71045; 72100; 72125; 80053; 80307; 82077; 83605; 84484; 84703; 85025; 85610; 85730; 93005; 96374; 99285; J7040; A4216

== ENCOUNTER → 2020-07-12 08:06 | Outpatient (CLI) | payer MEDICARE, MEDICAID, SELFPAY ==
[2020-07-03 13:48] VITALS: BMI 38.8
[2020-07-09 17:42] VITALS: BMI 39.1
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
== END ==
PROVIDERS: PCP Family Medicine; Referring Provider Orthopaedic Surgery; Visit Provider Orthopaedic Surgery
DX: M75.41 Impingement syndrome of right shoulder (principal); M25.511 Pain in right shoulder
CPT/HCPCS: 73200

== ENCOUNTER → 2020-07-18 12:09 | Outpatient (CLI) | payer MEDICARE, MEDICAID, SELFPAY ==
[2020-07-09 17:42] VITALS: BMI 39.1
--- NOTE | 2020-07-18 12:25 | EKG12_ITS ---
Test Reason : PREOP Blood Pressure : / mmHG Vent. Rate : 068 BPM Atrial Rate : 068 BPM P-R Int : 126 ms QRS Dur : 078 ms QT Int : 396 ms P-R-T Axes : 027 012 014 degrees QTc Int : 421 ms Normal sinus rhythm Normal ECG Confirmed by KHOI ELIZONDO, KE ([id number]), story editor LAURA STRAUSS ([id number]) on 07/22/2020 9:25:44 AM Referred By: Dexter Palmer Confirmed By:BRIDGETTE WESTFALL MD
[2020-07-18 13:08] LABS: Absolute Lymphocyte Count 1.76 X10^3/uL (0.83-4.51); Absolute Neutrophil Count 3.7 X10^3/uL (2.0-7.7); Basophil# 0.07 X10^3/uL; Basophil% 1.1 % (0-1); Eosinophil# 0.46 X10^3/uL; Eosinophils% 7.1 % (0-5); Hematocrit 42.9 % (37-47); Hemoglobin 13.9 g/dL (12.0-15.0); Lymphocyte # 1.76 X10^3/ul (4.0); Lymphocyte % 27.3 % (19-41); Mean Corp Hgb Conc 32.4 g/dL (32-36); Mean Corpuscular Hgb 27.1 pg (27.0-32.0); Mean Corpuscular Volume 83.8 fL (81-99); Mean Platelet Vol. 10.6 fl (6.2-12.0); Monocyte# 0.44 X10^3/uL; Monocyte% 6.8 % (0-10); NRBC Flagged by Analyzer 0 % (0-5); Neutrophil # 3.67 X10^3/uL (2.7-7.7); Neutrophil % 57.1 % (47-70); Platelet Count 252 K/mm3 (150-450); RBC Distribution Width CV 14.3 % (11.6-14.6); RBC Distribution Width SD 43.5 fl (35.1-43.9); Red Blood Count 5.12 M/mm3 (4.2-5.4); White Blood Count 6.4 K/mm3 (4.4-11.0)
[2020-07-18 13:30] LABS: Anion Gap 9 (5-15); BUN 17 mg/dL (7-18); BUN/Creat Ratio 18.5 RATIO (10-20); Calcium,Total 8.9 mg/dL (8.5-10.1); Chloride 102 mmol/L (98-107); Creatinine, Serum 0.92 mg/dL (0.55-1.02); EST Glomerular Filtration Rate 73 mL/min (>60); Est Glom Filt Rate - Afr Amer 88 mL/min (>60); Glucose 125 mg/dL (74-106); Potassium 3.7 mmol/L (3.5-5.1); Sodium Level 137 mmol/L (136-145)
[2020-07-18 13:33] LABS: Hemoglobin A1c 9.1 % (3.8-5.6)
== END ==
PROVIDERS: PCP Family Medicine; Referring Provider Physician Assistant; Visit Provider Physician Assistant
DX: Z11.59 Encounter for screening for other viral diseases (principal); Z01.818 Encounter for other preprocedural examination; Z01.810 Encounter for preprocedural cardiovascular examination
CPT/HCPCS: 36415; 80048; 83036; 85025; 87635; 93005; C9803; U0002

== ENCOUNTER → 2020-09-27 17:29 | Outpatient (CLI) | payer MEDICARE, MEDICAID, SELFPAY ==
[2020-09-13 10:48] VITALS: BMI 36.4
== END ==
PROVIDERS: PCP Family Medicine; Referring Provider Family Medicine; Visit Provider Family Medicine
DX: B34.9 Viral infection, unspecified (principal)
CPT/HCPCS: 87635; U0002

== ENCOUNTER 2020-09-27 18:07 | Emergency (ER) | payer MEDICARE, MEDICAID, SELFPAY ==
[2020-09-13 10:48] VITALS: BMI 36.4
[2020-09-27 18:08] VITALS: BP 128/79; PULSE 96; RESP 14; TEMP 37.1; O2SAT 97; BMI 33.9
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
[2020-09-27 20:47] VITALS: PULSE 75; RESP 16; O2SAT 98
== END 2020-09-27 20:48 | disposition home or self-care (01) ==
PROVIDERS: Emergency Provider Student in an Organized Health Care Education/Training Program; PCP Family Medicine
DX: R20.2 Paresthesia of skin (principal); M79.10 Myalgia, unspecified site; Z79.82 Long term (current) use of aspirin
CPT/HCPCS: 87635; 99282; U0002

== ENCOUNTER → 2020-10-03 13:38 | Outpatient (CLI) | payer MEDICARE, MEDICAID, SELFPAY ==
[2020-09-27 18:08] VITALS: BMI 33.9
[2020-10-03 13:41] LABS: Lyme Ab Screen Interpretation REF LAB
[2020-10-03 15:45] LABS: Erythrocyte Sedimentation Rate 12 mm/hr (0-30)
[2020-10-03 15:46] LABS: Absolute Lymphocyte Count 1.54 X10^3/uL (0.83-4.51); Absolute Neutrophil Count 3.9 X10^3/uL (2.0-7.7); Basophil# 0.03 X10^3/uL; Basophil% 0.5 % (0-1); Eosinophil# 0.51 X10^3/uL; Eosinophils% 7.9 % (0-5); Hematocrit 42.4 % (37-47); Hemoglobin 13.6 g/dL (12.0-15.0); Lymphocyte # 1.54 X10^3/ul (0.83-4.51); Lymphocyte % 23.8 % (19-41); Mean Corp Hgb Conc 32.1 g/dL (32-36); Mean Corpuscular Hgb 26.6 pg (27.0-32.0); Mean Corpuscular Volume 82.8 fL (81-99); Mean Platelet Vol. 10.2 fl (6.2-12.0); Monocyte# 0.44 X10^3/uL; Monocyte% 6.8 % (0-10); NRBC Flagged by Analyzer 0 % (0-5); Neutrophil # 3.93 X10^3/uL (2.7-7.7); Neutrophil % 60.7 % (47-70); Platelet Count 250 K/mm3 (150-450); RBC Distribution Width CV 14.5 % (11.6-14.6); RBC Distribution Width SD 43.1 fl (35.1-43.9); Red Blood Count 5.12 M/mm3 (4.2-5.4); White Blood Count 6.5 K/mm3 (4.4-11.0)
[2020-10-03 16:09] LABS: Internal QC Validated? YES +Cl - CLEAR BKGD; Monotest Negative (Negative)
[2020-10-03 16:14] LABS: ALB/GLOB Ratio 0.9 RATIO (0.9-2.4); AST(SGOT) 24 U/L (15-37); Alanine Aminotransfer ALT/SGPT 40 U/L (13-56); Albumin, Serum 3.4 g/dL (3.2-5.0); Alkaline Phosphatase 92 U/L (45-117); Anion Gap 7 (5-15); BUN 14 mg/dL (7-18); Calcium,Total 8.5 mg/dL (8.5-10.1); Chloride 105 mmol/L (98-107); EST Glomerular Filtration Rate 66 mL/min (>60); Est Glom Filt Rate - Afr Amer 79 mL/min (>60); Globulin 3.7 g/dL (2.2-4.2); Glucose 222 mg/dL (74-106); Potassium 3.5 mmol/L (3.5-5.1); Protein, Total 7.1 g/dL (6.4-8.2); Sodium Level 137 mmol/L (136-145)
[2020-10-05 17:31] LABS: CMV Acute Antibody IgM < 30.0 AU/mL (0.0-29.9); CMV Antibody IgG < 0.60 U/mL (0.00-0.59); Lyme Scn Total Ab w/Rflx <0.91 ISR (0.00-0.90)
== END ==
PROVIDERS: PCP Family Medicine; Referring Provider Family Medicine; Visit Provider Family Medicine
DX: R53.83 Other fatigue (principal)
CPT/HCPCS: 36415; 80053; 85025; 85652; 86308; 86618; 86644; 86645

== ENCOUNTER 2021-01-22 22:13 | Emergency (ER) | payer MEDICARE, MEDICAID, SELFPAY ==
[2021-01-22 22:15] VITALS: BP 128/88; PULSE 87; RESP 15; TEMP 35.8; O2SAT 97; BMI 35.5
--- NOTE | 2021-01-22 22:29 | EDS_ITS ---
HPI History of Present Illness Chief Complaint: Lower Extremity Injury Informant: patient Occured/Mechanism Mechanism/Context: Yes fall Onset/Context/Timing Onset: Today Context: Sudden Onset (With gradual worsening later of left knee pain) Timing: Continuous Quality of Pain: Aching Location: Left knee, less in the left groin Current Severity: Moderate Maximum Severity: Severe Worsened by: Weightbearing/walking, movement Relieved by: Resting remaining still Associated Symptoms Associated Symptoms: Negative for Parasthesia, Weakness and Loss of Funtion Narrative Narrative: [place], she tripped over a curb on the pavement that she did not see there, landing on her left knee against the patella, think she strained her groin in the meantime. She has been ambulatory but the pain is worsened throughout the day. No other injuries. [facility] Medical History Acute frontal sinusitis, unspecified Acute maxillary sinusitis, unspecified Home Medications gabapentin 300 mg PO TIDCM 05/10/17 [History Last Taken 08/14/18] empagliflozin [Jardiance] 25 mg PO DAILY 08/14/18 [History Last Taken 08/14/18] aspirin 81 mg PO DAILY #30 tab.chew 08/23/19 [Rx Last Taken Unknown] clopidogrel 75 mg PO DAILY 12/10/19 [History Last Taken Unknown] repaglinide 1 mg PO DAILY 12/28/19 [History Last Taken Unknown] insulin glargine 100 unit/mL subcutaneous solution 10 unit SUBCUT BID 09/13/20 [History Last Taken Unknown] thyroid (pork) 15 mg tablet 15 mg PO DAILY 09/13/20 [History Last Taken Unknown] amoxicillin 875 mg-potassium clavulanate 125 mg tablet 1 tab PO BID #28 tab 11/28/20 [Rx Last Taken Unknown] valacyclovir 1 gram tablet 1,000 mg PO BID 5 Days #10 tab 01/16/21 [Rx Last Taken Unknown] Allergy/AdvReac Type Severity Reaction Status Date / Time Sulfa (Sulfonamide Allergy Intermediate Hives Verified 01/22/21 22:15 Antibiotics) Iodinated Contrast Media Allergy Mild Rash Verified 01/22/21 22:15 nortriptyline AdvReac Severe Other Verified 01/22/21 22:15 metformin AdvReac Intermediate Diarrhea Verified 01/22/21 22:15 morphine AdvReac Itching Verified 01/22/21 22:15 Social History Smoking Status: Never smoker ROS ROS ED Constitutional Constitutional ED: Denies chills or fever(s) Musculoskeletal Musculoskeletal: Reports extremity pain; Denies neck pain Integumentary Denies Abrasions, rash or wounds Neurologic Neurologic: Denies paresthesias or weakness EXAM Physical Exam Const Vital Signs: 01/22/21 22:15 Temperature 96.5 F L Temperature Source Temporal Pulse Rate 87 Respiratory Rate 15 Blood Pressure 128/88 H Blood Pressure Mean 101 Pulse Ox 97 Oxygen Delivery Method Room Air Positive well nourished and well developed General Appearance ED: well developed and NAD Neck full ROM and supple Back/Spine normal ROM and normal to inspection Extremity normal to inspection Extremity Narrative: Tender at the left patellar ligament, and mildly on the patella. No other bony tenderness including the tibial tuberosity. Extensor mechanism intact. All ligaments stable with short endpoints, the only 1 that is painful with stressing is the PCL and there is no laxity. Possible mild effusion. Full range of motion of the left hip joint without any pain. Mild tenderness in the left inguinal musculature. Neuro oriented x3, no focal motor deficits and no sensory deficits noted Sensorium / Orientation: alert Psych mental status grossly normal and thought process normal Skin no wounds Rashes: no rashes MDM MDM MDM Narrative Medical decision making narrative: 4 view x-ray series of the left knee is negative on my interpretation. Radiology in agreement. Patient was reassured, differential includes simple contusion, traumatic prepatellar bursitis, traumatic effusion, or internal derangement. Given Dorian wrap, anti- inflammatories, if not better and 1 week, follow-up with orthopedics. Patient was given dose of anti-inflammatories here tonight, but I would not prescribe them for her since she is on clopidogrel and is a diabetic. Lab Data Attestation: I reviewed the patient's lab results. Radiography Diagnostic Testing: Radiology Impression Knee X-Ray 01/22/21 22:48 IMPRESSION: Normal x-ray examination of the knee. Electronically Signed: Dennis Lawler MD at 23:33 EDT , Service support , Discharge Plan Triage Chief Complaint: Lower Extremity Injury ED Provider: Calderon Breen Dx/Rx/DC Orders Clinical Impression: Contusion of knee, left Instructions: ED Knee Effusion Prescriptions: No Action thyroid (pork) [[place] Thyroid] 15 mg tablet 15 mg PO DAILY RF: 0 Lantus U-100 Insulin 100 unit/mL solution 10 unit subcut BID RF: 0 amoxicillin-pot clavulanate 875-125 mg tablet 1 tab PO BID Qty: 28 RF: 0 gabapentin 300 MG capsule 300 mg PO TIDCM RF: 0 empagliflozin [Jardiance] 25 MG tablet 25 mg PO DAILY RF: 0 aspirin 81 MG tablet,chewable 81 mg PO DAILY Qty: 30 RF: 1 clopidogrel 75 MG tablet 75 mg PO DAILY RF: 0 repaglinide 1 MG tablet 1 mg PO DAILY RF: 0 valacyclovir 1 gram tablet 1,000 mg PO BID 5 Days Qty: 10 RF: 3 Primary Care Provider: Jhonny Valladares Referrals: Jhonny Valladares MD [Primary Care Provider] - Rd Calloway DO [STAFF PHYSICIAN] - 1 Week if not improving Disposition Disposition: Home, Self Care
--- NOTE | 2021-01-22 22:48 | RAD_ITS ---
STUDY: X-RAY - LEFT KNEE REASON FOR EXAM: Female, 40 years old. injury TECHNIQUE: 4 view(s) of the knee. COMPARISON: None. FINDINGS: Normal visualized distal femur. Normal visualized proximal tibia and fibula. Normal proximal tibiofibular articulation. There is no demonstrated fracture. Normal medial femorotibial compartment. Normal lateral femorotibial compartment. Normal patellofemoral articulation. There is no demonstrated joint effusion. The soft tissue structures are unremarkable. RAD/Knee 4 or More Views IMPRESSION: Normal x-ray examination of the knee. Electronically Signed: Dennis Lawler MD at 23:33 EDT , Service support ,
[2021-01-23] MEDS: Naproxen 250 MG Tablet 500 MG PO (00:08)
[2021-01-23 00:12] VITALS: BP 126/82; PULSE 82; RESP 16
== END 2021-01-23 00:13 | disposition home or self-care (01) ==
PROVIDERS: Emergency Provider Emergency Medicine; PCP Family Medicine
DX: S80.02XA Contusion of left knee, initial encounter (principal); W18.09XA Striking against other object with subsequent fall, initial encounter; Y93.89 Activity, other specified; Y92.480 Sidewalk as the place of occurrence of the external cause; Y99.9 Unspecified external cause status; E11.9 Type 2 diabetes mellitus without complications; Z79.02 Long term (current) use of antithrombotics/antiplatelets; Z79.82 Long term (current) use of aspirin
CPT/HCPCS: 73564; 99283

== ENCOUNTER → 2021-03-13 10:21 | Outpatient (CLI) | payer MEDICARE, MEDICAID, SELFPAY ==
[2021-03-13 12:31] LABS: CRP 7.23 mg/L (0.0-3.0)
[2021-03-13 23:57] LABS: Erythrocyte Sedimentation Rate 16 mm/hr (0-30)
== END ==
PROVIDERS: PCP Family Medicine; Referring Provider Family Medicine; Visit Provider Family Medicine
DX: M79.7 Fibromyalgia (principal)
CPT/HCPCS: 36415; 85652; 86140

== ENCOUNTER 2021-04-17 16:29 | Emergency (ER) | payer MEDICARE, MEDICAID, SELFPAY ==
[2021-04-17 16:30] VITALS: BP 140/86; PULSE 77; RESP 18; TEMP 35.9; O2SAT 98; BMI 34.7
--- NOTE | 2021-04-17 16:32 | EKG12_ITS ---
Test Reason : CP Blood Pressure : / mmHG Vent. Rate : 078 BPM Atrial Rate : 078 BPM P-R Int : 138 ms QRS Dur : 078 ms QT Int : 396 ms P-R-T Axes : 031 011 019 degrees QTc Int : 451 ms Normal sinus rhythm Normal ECG Confirmed by ANIKA ELIZONDO, STACI ([id number]), editor city LAURA STRAUSS ([id number]) on 04/18/2021 11:40:54 AM Referred By: Confirmed By:STACI DONALDSON MD
[2021-04-17 16:47] LABS: Absolute Lymphocyte Count 2.05 X10^3/uL (0.83-4.51); Absolute Neutrophil Count 3.2 X10^3/uL (2.0-7.7); Basophil# 0.07 X10^3/uL; Basophil% 1.1 % (0-1); Eosinophil# 0.46 X10^3/uL; Eosinophils% 7.5 % (0-5); Hematocrit 44.6 % (37-47); Hemoglobin 14.5 g/dL (12.0-15.0); Lymphocyte # 2.05 X10^3/ul (0.83-4.51); Lymphocyte % 33.2 % (19-41); Mean Corp Hgb Conc 32.5 g/dL (32-36); Mean Corpuscular Hgb 26.7 pg (27.0-32.0); Mean Corpuscular Volume 82.1 fL (81-99); Mean Platelet Vol. 9.7 fl (6.2-12.0); Monocyte# 0.39 X10^3/uL; Monocyte% 6.3 % (0-10); NRBC Flagged by Analyzer 0 % (0-5); Neutrophil # 3.16 X10^3/uL (2.7-7.7); Neutrophil % 51.3 % (47-70); Platelet Count 285 K/mm3 (150-450); RBC Distribution Width CV 14.6 % (11.6-14.6); RBC Distribution Width SD 43.3 fl (35.1-43.9); Red Blood Count 5.43 M/mm3 (4.2-5.4); White Blood Count 6.2 K/mm3 (4.4-11.0)
[2021-04-17 17:18] LABS: Anion Gap 9 (5-15); BUN 19 mg/dL (7-18); BUN/Creat Ratio 19.7 RATIO (10-20); Calcium,Total 8.7 mg/dL (8.5-10.1); Chloride 104 mmol/L (98-107); Creatinine, Serum 0.96 mg/dL (0.55-1.02); EST Glomerular Filtration Rate 68 mL/min (>60); Est Glom Filt Rate - Afr Amer 83 mL/min (>60); Estimated Creatinine Clearance 73.65 ml/min; Glucose 328 mg/dL (74-106); Potassium 3.6 mmol/L (3.5-5.1); Sodium Level 136 mmol/L (136-145); Troponin-I HS 3 pg/mL (3.0-54.0)
--- NOTE | 2021-04-17 17:33 | RAD_ITS ---
EXAM: XR CHEST, 1 VIEW CLINICAL INDICATION: chest pain TECHNIQUE: Frontal view of the chest. This report was created using [employer] report generation technology. COMPARISON: None. FINDINGS: LUNGS AND PLEURAL SPACES: Unremarkable. No consolidation or edema. No pneumothorax. No effusion. HEART: Unremarkable. Cardiac silhouette not enlarged. MEDIASTINUM: Central airways and mediastinal contour are unremarkable. BONES/JOINTS: Unremarkable. SOFT TISSUES: Unremarkable. RAD/Chest 1 View (Portable) IMPRESSION: No radiographic evidence of acute cardiopulmonary disease. Electronically Signed: Toi Farmer MD at 17:51 EST , Service support ,
[2021-04-17 18:45] VITALS: BP 112/79; PULSE 77; RESP 17; O2SAT 97
--- NOTE | 2021-04-17 18:54 | EDS_ITS ---
HPI History of Present Illness Chief Complaint: Chest Pain Informant: patient Onset/Context/Timing Onset: Today Context: Gradual Onset Current Severity: Mild Maximum Severity: Moderate Narrative Narrative: Patient presents with a constant chest pressure today with occasional sharp pain that wraps around the left ribs, worse with deep breath. Pain started this morning and was gradual in onset. She had a mild cough recently but no fever. She does note an upsetting incident this morning where she had to call police. She is not sure if her pain may be related to anxiety. [facility] Medical History AVM (arteriovenous malformation) brain HLD (hyperlipidemia) HTN (hypertension) Seizure disorder Type II diabetes mellitus Home Medications gabapentin 300 mg PO TIDCM 05/10/17 [History Last Taken 08/14/18] empagliflozin [Jardiance] 25 mg PO DAILY 08/14/18 [History Last Taken 08/14/18] aspirin 81 mg PO DAILY #30 tab.chew 08/23/19 [Rx Last Taken Unknown] clopidogrel 75 mg PO DAILY 12/10/19 [History Last Taken Unknown] repaglinide 1 mg PO DAILY 12/28/19 [History Last Taken Unknown] insulin glargine 100 unit/mL subcutaneous solution 10 unit SUBCUT BID 09/13/20 [History Last Taken Unknown] thyroid (pork) 15 mg tablet 15 mg PO DAILY 09/13/20 [History Last Taken Unknown] amoxicillin 875 mg-potassium clavulanate 125 mg tablet 1 tab PO BID #28 tab 11/28/20 [Rx Last Taken Unknown] valacyclovir 1 gram tablet 1,000 mg PO BID 5 Days #10 tab 01/16/21 [Rx Last Taken Unknown] Allergy/AdvReac Type Severity Reaction Status Date / Time Sulfa (Sulfonamide Allergy Intermediate Hives Verified 04/17/21 16:30 Antibiotics) Iodinated Contrast Media Allergy Mild Rash Verified 04/17/21 16:30 nortriptyline AdvReac Severe Other Verified 04/17/21 16:30 metformin AdvReac Intermediate Diarrhea Verified 04/17/21 16:30 morphine AdvReac Itching Verified 04/17/21 16:30 Social History Smoking Status: Never smoker ROS ROS ED Constitutional Constitutional ED: Denies chills or fever(s) Eyes Eyes: Denies change in vision ENT ENT ED: Denies sore throat Cardiovascular Cardiovascular: Reports chest pain Respiratory/Chest Respiratory/Chest: Reports other Details: Pain worse with deep breath but does not feel dyspneic. ; Denies cough or dyspnea Gastrointestinal Gastrointestinal: Denies abdominal pain, diarrhea, nausea or vomiting Genitourinary Genitourinary ED: Denies dysuria Musculoskeletal Musculoskeletal: Denies back pain Integumentary Denies rash Neurologic Neurologic: Denies headache(s) or weakness Allergic/Immunologic Allergic/Immunologic ED: Denies urticaria EXAM Physical Exam Const Vital Signs: 04/17/21 16:30 04/17/21 18:44 04/17/21 18:45 Temperature 96.7 F L Temperature Source Temporal Pulse Rate 77 77 Respiratory Rate 18 17 Respiratory Effort Normal Blood Pressure 140/86 H 112/79 Blood Pressure Mean 104 90 Pulse Ox 98 97 Oxygen Delivery Method Room Air Room Air Room Air 04/17/21 19:00 04/17/21 20:00 Temperature Temperature Source Pulse Rate 73 76 Respiratory Rate 19 H 21 H Respiratory Effort Blood Pressure 125/87 H 127/76 H Blood Pressure Mean 99 93 Pulse Ox 97 98 Oxygen Delivery Method Room Air Room Air Positive well nourished and well developed General Appearance ED: well developed HEENT Reports normocephalic and head/scalp atraumatic Eyes PERRL and EOMs intact bilaterally Neck supple Chest Wall inspection of chest normal and palpation of chest normal Resp normal respiratory effort and clear to auscultation bilaterally Cardio regular rate and regular rhythm GI normal to inspection, nondistended, normoactive bowel sounds Palpation: soft Extremity normal to inspection Neuro oriented x3 Neuro Narrative: No focal neurologic deficits Sensorium / Orientation: alert Psych mental status grossly normal Skin no rashes or lesions noted MDM MDM MDM Narrative Medical decision making narrative: Lab work, EKG, chest x-ray obtained. Lab Data Attestation: I reviewed the patient's lab results. Labs: Laboratory Results - last 24 hr 04/17/21 04/17/21 04/17/21 16:40 16:40 19:05 WBC 6.2 RBC 5.43 H Hgb 14.5 Hct 44.6 MCV 82.1 MCH 26.7 L MCHC 32.5 RDW Std Deviation 43.3 RDW Coeff of Quentin 14.6 Plt Count 285 MPV 9.7 Immature Gran % (Auto) 0.600 Neut % (Auto) 51.3 Lymph % (Auto) 33.2 [place] % (Auto) 6.3 Eos % (Auto) 7.5 H Baso % (Auto) 1.1 H Absolute Neuts (auto) 3.2 Absolute Lymphs (auto) 2.05 Nucleated RBC % 0 D-Dimer Quant (PE/DVT) <= 0.27 Sodium 136 Potassium 3.6 Chloride 104 Carbon Dioxide 23.0 Anion Gap 9 BUN 19 H Creatinine 0.96 Estim Creat Clear Calc 73.65 Est GFR (MDRD) Af Amer 83 Est GFR (MDRD) Non-Af 68 BUN/Creatinine Ratio 19.7 Glucose 328 H Calcium 8.7 Troponin I High Sens 3 Radiography Chest X-Ray - ED: 1 View, Read by ED Physician, Normal, Heart, Lungs and Mediastinum Diagnostic Testing: Clinical Impression(s) from Imaging Studies Chest X-Ray 04/17/21 17:33 IMPRESSION: No radiographic evidence of acute cardiopulmonary disease. Electronically Signed: Toi Farmer MD at 17:51 EST , Service support , EKG Initial EKG: Attestation: I personally reviewed and interpreted this EKG as follows: Interpretation: Sinus Rhythm (Sinus at 78 with no acute ischemia.) Treatment and Re-Evaluation Comments:: Test results discussed with patient. She is resting comfortably. Troponin and D-dimer are both negative. Chest x-ray clear. With the timing of her chest pain in relation to her upsetting incident this morning I think a lot of this is anxiety related. Patient will continue supportive care at home. Return instructions provided. Discharge Plan Triage Chief Complaint: Chest Pain ED Provider: Shari Harrell Dx/Rx/DC Orders Clinical Impression: Chest pain Instructions: ED Chest Pain, Noncardiac Prescriptions: No Action thyroid (pork) [[place] Thyroid] 15 mg tablet 15 mg PO DAILY RF: 0 Lantus U-100 Insulin 100 unit/mL solution 10 unit subcut BID RF: 0 amoxicillin-pot clavulanate 875-125 mg tablet 1 tab PO BID Qty: 28 RF: 0 gabapentin 300 MG capsule 300 mg PO TIDCM RF: 0 empagliflozin [Jardiance] 25 MG tablet 25 mg PO DAILY RF: 0 aspirin 81 MG tablet,chewable 81 mg PO DAILY Qty: 30 RF: 1 clopidogrel 75 MG tablet 75 mg PO DAILY RF: 0 repaglinide 1 MG tablet 1 mg PO DAILY RF: 0 valacyclovir 1 gram tablet 1,000 mg PO BID 5 Days Qty: 10 RF: 3 Primary Care Provider: Jhonny Valladares Referrals: Jhonny Valladares MD [Primary Care Provider] - 3-5 Days if not improving Disposition Disposition: Home, Self Care
[2021-04-17 19:00] VITALS: BP 125/87; PULSE 73; RESP 19; O2SAT 97
[2021-04-17 19:48] LABS: D-Dimer Quantitative (DVT/PE) <= 0.27 FEU/ug/m (0.27-0.49)
[2021-04-17 20:00] VITALS: BP 127/76; PULSE 76; RESP 21; O2SAT 98
== END 2021-04-17 20:39 | disposition home or self-care (01) ==
PROVIDERS: Emergency Provider Emergency Medicine; PCP Family Medicine
DX: R07.9 Chest pain, unspecified (principal); E78.5 Hyperlipidemia, unspecified; I10 Essential (primary) hypertension; E11.9 Type 2 diabetes mellitus without complications; G40.909 Epilepsy, unspecified, not intractable, without status epilepticus; Q28.2 Arteriovenous malformation of cerebral vessels; Z79.4 Long term (current) use of insulin; Z79.82 Long term (current) use of aspirin
CPT/HCPCS: 71045; 80048; 84484; 85025; 85379; 93005; 99284; A4216

== ENCOUNTER → 2021-04-18 08:09 | Outpatient (CLI) | payer MEDICARE, MEDICAID, SELFPAY ==
--- NOTE | 2021-04-18 08:15 | MRI_ITS ---
History: skin disturbance,groin pain, leg weakness Technique: T1 and T2 MR imaging of the lumbar spine performed without contrast enhancement in axial and sagittal planes. Findings: Alignment of the lumbar vertebral bodies is normal. No bone marrow edema. Decreased T2 signal intensity within the L4-5 and L5-S1 disc related to desiccation. Similar changes noted at L1 to associated with mild disc space narrowing and superior endplate deformity of L2 which are chronic findings. Conus medullaris and cauda equina are normal. Paraspinal soft tissues are normal. L1-2: No disc protrusion. Normal caliber spinal canal and neural foramina. L2-3: No disc protrusion. Normal caliber spinal canal and neural foramina. L3-4: Mild central disc protrusion causing mild impression on the thecal sac. Normal caliber neural foramina. L4-5: Central disc protrusion associated with annular fissure causes mild impression on the thecal sac. Normal caliber neural foramina. L5-S1: Broad-based disc protrusion and annular fissure noted causing mild impression on the thecal sac. Mild narrowing of the left neural foramen related to facet hypertrophy. IMPRESSION: L4-5 and L5-S1 central disc protrusion with annular fissures causing mild impress on the thecal sac. Mild narrowing of the left L5-S1 neural foramen related to facet hypertrophy. at 1434 Reported and signed by: Sumeet Galvan MD Electronically Signed: Sumeet Galvan MD at 14:33 EST Tel , Service support , MRI/Spine Lumbar (Routine)
== END ==
PROVIDERS: PCP Family Medicine; Referring Provider Family Medicine; Visit Provider Family Medicine
DX: R20.8 Other disturbances of skin sensation (principal)
CPT/HCPCS: 72148

== ENCOUNTER 2021-04-30 19:48 | Emergency (ER) | payer MEDICARE, MEDICAID, SELFPAY ==
[2021-04-30] VITALS (8 sets, daily range): BP systolic 104–134; BP diastolic 68–90; PULSE 70–84; RESP 13–18; TEMP 36.6; O2SAT 96–98; BMI 39.4; BMI 38.2
--- NOTE | 2021-04-30 19:54 | EKG12_ITS ---
Test Reason : STROKE TEAM Blood Pressure : / mmHG Vent. Rate : 082 BPM Atrial Rate : 082 BPM P-R Int : 138 ms QRS Dur : 082 ms QT Int : 374 ms P-R-T Axes : 070 007 029 degrees QTc Int : 436 ms Normal sinus rhythm Low voltage QRS Confirmed by CESAR ELIZONDO, BRET ([id number]), development editor LAURA STRAUSS ([id number]) on 05/05/2021 10:15:53 AM Referred By: COTY Confirmed By:BRET GUERRERO MD
--- NOTE | 2021-04-30 19:54 | CT_ITS ---
We are attempting to reach an attending provider to discuss findings. An addendum with communication details will be sent when the communication is complete. HISTORY: Neuro deficit, acute, stroke suspected TECHNIQUE: Routine carotid CT angiogram protocol was performed without and with IV contrast. In addition, images were obtained of the [place]. Nascet criteria using the distal ICAs for comparison were used for evaluation of stenoses. 3D reconstructions were reviewed. A radiation dose optimization technique was used for this scan. IV Contrast dosage and agent: 100mL [id number] COMPARISON: Noncontrast head CT of same date FINDINGS: --NECK: AORTIC ARCH AND BRANCHES: Cervical vessel origins patent. RIGHT CCA: No occlusion, significant stenosis or dissection. RIGHT ICA: No occlusion, significant stenosis or dissection. LEFT CCA: No occlusion, significant stenosis or dissection. LEFT ICA: No occlusion, significant stenosis or dissection. RIGHT VERTEBRAL ARTERY: No occlusion, significant stenosis or dissection. LEFT VERTEBRAL ARTERY: Diminutive vessel, terminates at the base of the skull. NECK SOFT TISSUES: Unremarkable. LUNG APICES: Clear. BONES: Unremarkable. --HEAD: --Anterior circulation: ICAs: No significant stenosis at the intracranial/visualized segments. ACAs: No significant stenosis at the visualized segments. ACOM: Absent. MCAs: No significant stenosis at the visualized segments. --Posterior circulation: visual basic programmer: No significant stenosis at the visualized segments. 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 BASILAR ARTERY: No significant stenosis. VERTEBRAL ARTERIES: No significant stenosis at the intradural/visualized segments. No evidence of intracranial aneurysm or vascular malformation. CT/STROKE CTA Head AND Neck W/Con IMPRESSION: Negative CTA Head and Neck. Individualized dose optimization techniques were used for this CT. at 203 Reported and signed by: Steve Paez MD Electronically Signed: Steve Paez MD at 20:29 EST Tel , Service support ,
--- NOTE | 2021-04-30 19:54 | RAD_ITS ---
HISTORY: Neuro deficit, acute, stroke suspected EXAMINATION/TECHNIQUE: XR Chest 1 View: 1 view COMPARISON: 04/17/21 FINDINGS: LINES/DEVICES: None. LUNGS: No consolidation, edema or effusion. No pneumothorax. MEDIASTINUM AND CARDIOVASCULAR STRUCTURES: Cardiac silhouette not enlarged. Central airways and mediastinal contour are unremarkable. BONES AND SOFT TISSUES: No acute bony abnormalities. RAD/Chest 1 View IMPRESSION: No radiographic evidence of acute cardiopulmonary disease. at 2133 Reported and signed by: Steve Paez MD Electronically Signed: Steve Paez MD at 21:32 EST Tel , Service support ,
--- NOTE | 2021-04-30 19:54 | CT_ITS ---
We are attempting to reach an attending provider to discuss findings. An addendum with communication details will be sent when the communication is complete. HISTORY: Neuro deficit, acute, stroke suspected TECHNIQUE: Multiple axial images were obtained of the brain without intravenous contrast. A radiation dose optimization technique was used for this scan. IV Contrast dosage and agent: None. COMPARISON: July 09, 2020 FINDINGS: # of images incl. paperwork: 240 PARANASAL SINUSES AND MASTOID AIR CELLS: No acute sinusitis. INTRACRANIAL HEMORRHAGE: None. BRAIN PARENCHYMA: No CT evidence of stroke. No intracranial masses. There is preservation of the [place]/white matter interface. Posterior fossa structures are unremarkable. CSF SPACES: Appropriate for age. There is no hydrocephalus. MASS EFFECT: None. CALVARIUM: Intact. CT/STROKE Brain/Head without Cont IMPRESSION: No acute intracranial findings. Individualized dose optimization techniques were used for this CT. at 2006 Reported and signed by: Steve Paez MD Electronically Signed: Steve Paez MD at 20:05 EST Tel , Service support ,
--- NOTE | 2021-04-30 20:00 | EDS_ITS ---
HPI History of Present Illness Chief Complaint: Neuro S/Sx Informant: patient Onset/Context/Timing Onset: Today Context: Sudden Onset Timing: Continuous Quality and Location: Positive for Left Facial Droop, Right Arm Weakness and Right Leg Weakness Current Severity: Mild Maximum Severity: Moderate Associated Symptoms Associated Symptoms: Negative for Headache, Nausea, Vomiting and Chest Pain Narrative Narrative: 40-year-old female reportedly has had weakness to her right arm and leg for the last hour. Reportedly possibly worked up for TIA in the past. She is also diabetic. Patient states that she started having the symptoms around an hour ago. Denies any fall or head trauma. Denies being on any blood thinners. There is a history of her possibly faking similar symptoms like this before. Prior similar symptoms: Yes Recent Illness/Hospitalization: No PFSH PFSH Medical History AVM (arteriovenous malformation) brain HLD (hyperlipidemia) HTN (hypertension) Seizure disorder Type II diabetes mellitus Home Medications gabapentin 800 mg PO TIDCM 05/10/17 [History Last Taken 08/14/18] Jardiance 25 mg PO DAILY 08/14/18 [History Last Taken 08/14/18] repaglinide 1 mg PO DAILY 12/28/19 [History Last Taken Unknown] insulin glargine 100 unit/mL subcutaneous solution 55 unit SUBCUT QHS 09/13/20 [History Last Taken Unknown] thyroid (pork) 15 mg tablet 15 mg PO DAILY 09/13/20 [History Last Taken Unknown] Allergy/AdvReac Type Severity Reaction Status Date / Time Sulfa (Sulfonamide Allergy Intermediate Hives Verified 04/30/21 20:16 Antibiotics) Iodinated Contrast Media Allergy Mild Rash Verified 04/30/21 20:16 nortriptyline AdvReac Severe Other Verified 04/30/21 20:16 metformin AdvReac Intermediate Diarrhea Verified 04/30/21 20:16 morphine AdvReac Itching Verified 04/30/21 20:16 Social History Smoking Status: Never smoker ROS ROS ED ROS Narrative Denies recent illness. Review of Systems ROS Unobtainable: Denies due to encephalopathy Constitutional Constitutional ED: Denies fever(s) Eyes Eyes: Denies change in vision ENT ENT ED: Denies ear pain Cardiovascular Cardiovascular: Denies chest pain Respiratory/Chest Respiratory/Chest: Denies dyspnea Gastrointestinal Gastrointestinal: Denies abdominal pain, diarrhea, nausea or vomiting Genitourinary Genitourinary ED: Denies dysuria Musculoskeletal Musculoskeletal: Denies myalgias Integumentary Denies rash Neurologic Neurologic: Denies headache(s) Psychiatric Psychiatric: Denies depression Endocrine Endocrinology: Denies polyuria Hematologic/Lymphatic Hematologic/Lymphatic: Denies easy bruising Allergic/Immunologic Allergic/Immunologic ED: Denies urticaria EXAM Physical Exam Narrative Exam Narrative: 40-year-old female brought in for possible stroke. Vital signs are stable afebrile. HEENT exam shows right facial droop. Q-Dryl reactive light. Neck nontender. Lungs are clear. Heart regular rate and rhythm no murmur. Abdomen soft nontender normal bowel sounds no peritoneal signs. 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 Weakness try to raise it. Right leg weakness and drift. Left upper left lower extremity unremarkable normal strength and sensation. Neurologically she is awake. She is alert. She is answering questions. Following commands. She has a left facial droop and right arm and leg weakness. Const Vital Signs: 04/30/21 19:55 04/30/21 20:15 04/30/21 20:30 Temperature 97.8 F Temperature Source Temporal Pulse Rate 84 80 Respiratory Rate 13 18 Blood Pressure 114/68 121/77 H Blood Pressure Mean 83 91 Pulse Ox 97 97 Oxygen Delivery Method Room Air Room Air 04/30/21 21:00 04/30/21 21:30 04/30/21 22:00 Temperature Temperature Source Pulse Rate 73 70 74 Respiratory Rate 16 16 16 Blood Pressure 120/79 126/74 H 118/77 Blood Pressure Mean 92 91 90 Pulse Ox 98 98 98 Oxygen Delivery Method Room Air Room Air Room Air 04/30/21 22:30 Temperature Temperature Source Pulse Rate 78 Respiratory Rate 16 Blood Pressure 134/90 H Blood Pressure Mean 104 Pulse Ox 98 Oxygen Delivery Method Room Air Positive well nourished, well developed and obese; Negative for cachectic, contractures or unkempt General Appearance ED: well developed and NAD; Negative for unkempt, cachectic or contractures Nutritional Appearance: obese; Negative for cachectic HEENT Reports moist mucous membranes atraumatic; Negative for trauma Eyes PERRL and EOMs intact bilaterally Neck no lymphadenopathy, supple and no JVD General: Negative for tenderness Chest Wall inspection of chest normal and palpation of chest normal Resp normal respiratory effort and clear to auscultation bilaterally Auscultation: Negative for rales, rhonchi or wheezes Cardio no murmurs Rate: regular rate Rhythm: regular rhythm Heart Sounds: S1 normal and S2 normal GI normal to inspection, nondistended, normoactive bowel sounds, soft to palpation, non-tender, non-distended and no masses Auscultation: normoactive bowel sounds Palpation: Negative for tender, guarding or rebound tenderness present Back/Spine no CVA tenderness General Back: Negative for CVA tenderness Extremity normal to inspection Extremity Narrative: Right arm and leg weakness. General Extremety ED: Negative for deformity, edema or tenderness General Extremity: Negative for deformity or edema Neuro oriented x3 Neuro Narrative: Left facial droop. Right arm weakness. Right leg weakness. Sensorium / Orientation: alert, oriented to person, oriented to place and oriented to time; Negative for orientation impaired, confused, lethargic or stuporous Speech: speech normal Motor Exam: Negative for strength 5/5 throughout Psych mental status grossly normal Appearance: Negative for unkempt Mood & Affect: Negative for depressed or tearful Skin no wounds General Skin Exam: Negative for jaundice Lesions: no lesions Rashes: no rashes and No rashes noted STROKE Vital Signs/Narrative: Vital Signs Temp Pulse Resp BP Pulse Ox 04/30/21 22:30 78 16 134/90 H 98 04/30/21 22:00 74 16 118/77 98 04/30/21 21:30 70 16 126/74 H 98 04/30/21 21:00 73 16 120/79 98 04/30/21 20:30 80 18 121/77 H 97 04/30/21 20:15 84 13 114/68 97 04/30/21 19:55 97.8 F Inital Vital Signs reviewed: Yes MDM MDM MDM Narrative Medical decision making narrative: 40-year-old presents for right arm and leg weakness and left facial droop. Will undergo a stroke work-up. Concern is in the past this patient has had issues where she faked strokelike symptoms. She will be put through a stroke team protocol. Her initial plain CAT scan was read as radiologist is negative he just spoke to me via phone. Repeat exam at 10:55 PM patient is significantly improved. She is now able to lift her right arm and leg. There is some issue with her efforts. Her facial droop is completely resolved. Again I think that may have been effort dependent. Or the patient may be trying to have some type of secondary gain. I do not believe this was a stroke or mini stroke. She will be discharged home. I did review the patient's prior evaluations and in 2019 and 2017 she has extensive neurological work-ups including MRIs of the brain which showed no acute signs of any type of stroke. Lab Data Attestation: I reviewed the patient's lab results. Lab results narrative: CBC normal white count of 5. Hemoglobin 13.4. Platelets 232. PT/INR and PTT normal. Electrolytes showed a gap of 8 BUN 19 creatinine 1. Glucose of 349. Troponin of 3. Labs: Laboratory Results - last 24 hr 04/30/21 04/30/21 04/30/21 19:55 19:55 19:55 WBC 5.6 RBC 5.11 Hgb 13.4 Hct 41.9 MCV 82.0 MCH 26.2 L MCHC 32.0 RDW Std Deviation 41.4 RDW Coeff of Quentin 14.1 Plt Count 232 MPV 9.9 Immature Gran % (Auto) 0.900 Neut % (Auto) 47.4 Lymph % (Auto) 36.1 [place] % (Auto) 7.5 Eos % (Auto) 7.0 H Baso % (Auto) 1.1 H Absolute Neuts (auto) 2.6 Absolute Lymphs (auto) 2.01 Nucleated RBC % 0 PT 12.3 INR 1.0 APTT 24.6 Sodium 137 Potassium 3.6 Chloride 104 Carbon Dioxide 25.0 Anion Gap 8 BUN 19 H Creatinine 1.00 Estim Creat Clear Calc 67.96 Est GFR (MDRD) Af Amer 79 Est GFR (MDRD) Non-Af 66 BUN/Creatinine Ratio 19.1 Glucose 349 H Calcium 9.1 Troponin I High Sens 3 Radiography Diagnostic Testing: Clinical Impression(s) from Imaging Studies Brain CT 04/30/21 19:54 IMPRESSION: No acute intracranial findings. Individualized dose optimization techniques were used for this CT. at 2006 Reported and signed by: Steve Paez MD Electronically Signed: Steve Paez MD at 20:05 EST Tel , Service support , ADDENDUM: 04/30/212015 IMPRESSION: No acute intracranial findings. Individualized dose optimization techniques were used for this CT. at 2006 Reported and signed by: Steve Paez MD N.B. : The above Results were Read Back by Steve Paez MD to Dr. Mikey MD, and understanding confirmed on 04/30/2021 20:10:03 (ET). Electronically Signed: Steve Paez MD at 20:05 EST Tel , Service support , Chest X-Ray 04/30/21 19:54 IMPRESSION: No radiographic evidence of acute cardiopulmonary disease. at 2133 Reported and signed by: Steve Paez MD Electronically Signed: Steve Paez MD at 21:32 EST Tel , Service support , Head/Neck CTA 04/30/21 19:54 IMPRESSION: Negative CTA Head and Neck. Individualized dose optimization techniques were used for this CT. at 2031 Reported and signed by: Steve Paez MD Electronically Signed: Steve Paez MD at 20:29 EST Tel , Service support , ADDENDUM: 04/30/212045 IMPRESSION: Negative CTA Head and Neck. Individualized dose optimization techniques were used for this CT. at 203 Reported and signed by: Steve Paez MD N.B. : The above Results were Read Back by Steve Paez MD to Dr. Harshad Jensen MD, and understanding confirmed on 04/30/2021 20:39:37 (ET). Electronically Signed: Steve Paez MD at 20:29 EST Tel , Service support , Rhythm Strip Rhythm Strip: Sinus Rhythm Rate: 82 Ectopy: None EKG Initial EKG: Attestation: I personally reviewed and interpreted this EKG as follows: Interpretation: Sinus Rhythm and No Acute Injury Pattern Comments: Normal sinus rhythm rate 82. No acute abnormality. Unchanged from prior. Prior EKG tracings: available for review Prior: Unchanged Stroke Documentation Questions Stroke Team Activated: Yes Reviewed Inclusion/Exclusion criteria: Yes Was Patient considered for Endovascular Intervention?: No IV Alteplase (t-PA) Administered: No No contraindications for IV Alteplase (t-PA) administration.: No Alteplase (t-PA) risks, benefits, alternative discussed: Yes Not given: Patient refusal: No Discharge Plan Triage Chief Complaint: Neuro S/Sx ED Provider: Raphael Jensen Dx/Rx/DC Orders Clinical Impression: Conversion reaction, Obesity Instructions: ED Diabetic Hyperglycemia Prescriptions: No Action thyroid (pork) [Energy Thyroid] 15 mg tablet 15 mg PO DAILY RF: 0 Lantus U-100 Insulin 100 unit/mL solution 55 unit subcut QHS RF: 0 gabapentin 300 MG capsule 800 mg PO TIDCM RF: 0 Jardiance 25 MG tablet 25 mg PO DAILY RF: 0 repaglinide 1 MG tablet 1 mg PO DAILY RF: 0 Primary Care Provider: Jhonny Valladares Referrals: Jhonny Valladares MD [Primary Care Provider] - 1-2 Days if not improving Activity Restrictions/Additional Instructions: Watch her blood sugars closely. Today her blood sugar is elevated to 349. Take your diabetic meds as prescribed. There is no explanation for your right-sided weakness. The CAT scan of your head and neck were unremarkable. You have had prior evaluations for this including CAT scans and MRIs which were unremarkable for any specific diagnosis. There is no signs of a stroke or mini stroke. Follow-up with your primary care provider. Disposition Disposition: Home, Self Care
--- NOTE | 2021-04-30 20:04 | ED.RN ---
PER MD [facility] NOT INITIATED.
[2021-04-30 20:07] LABS: Absolute Lymphocyte Count 2.01 X10^3/uL (0.83-4.51); Absolute Neutrophil Count 2.6 X10^3/uL (2.0-7.7); Basophil# 0.06 X10^3/uL; Basophil% 1.1 % (0-1); Eosinophil# 0.39 X10^3/uL; Hematocrit 41.9 % (37-47); Hemoglobin 13.4 g/dL (12.0-15.0); Lymphocyte # 2.01 X10^3/ul (0.83-4.51); Lymphocyte % 36.1 % (19-41); Mean Corpuscular Hgb 26.2 pg (27.0-32.0); Mean Platelet Vol. 9.9 fl (6.2-12.0); Monocyte# 0.42 X10^3/uL; Monocyte% 7.5 % (0-10); NRBC Flagged by Analyzer 0 % (0-5); Neutrophil # 2.64 X10^3/uL (2.7-7.7); Neutrophil % 47.4 % (47-70); Platelet Count 232 K/mm3 (150-450); RBC Distribution Width CV 14.1 % (11.6-14.6); RBC Distribution Width SD 41.4 fl (35.1-43.9); Red Blood Count 5.11 M/mm3 (4.2-5.4); White Blood Count 5.6 K/mm3 (4.4-11.0)
[2021-04-30] MEDS: 0.9% Normal Saline 1,000 ML 999 ML IV (20:14)
[2021-04-30 20:21] LABS: Partial Thromboplast Time 24.6 Seconds (24.1-36.2); Prothrombin Time (Protime)PT. 12.3 SECONDS (11.7-14.9)
[2021-04-30 20:28] LABS: Anion Gap 8 (5-15); BUN 19 mg/dL (7-18); BUN/Creat Ratio 19.1 RATIO (10-20); Calcium,Total 9.1 mg/dL (8.5-10.1); Chloride 104 mmol/L (98-107); EST Glomerular Filtration Rate 66 mL/min (>60); Est Glom Filt Rate - Afr Amer 79 mL/min (>60); Estimated Creatinine Clearance 67.96 ml/min; Glucose 349 mg/dL (74-106); Potassium 3.6 mmol/L (3.5-5.1); Sodium Level 137 mmol/L (136-145); Troponin-I HS 3 pg/mL (3.0-54.0)
== END 2021-04-30 23:31 | disposition home or self-care (01) ==
PROVIDERS: Emergency Provider Emergency Medicine; PCP Family Medicine
DX: F44.9 Dissociative and conversion disorder, unspecified (principal); E66.9 Obesity, unspecified; E78.5 Hyperlipidemia, unspecified; I10 Essential (primary) hypertension; E11.9 Type 2 diabetes mellitus without complications; G40.909 Epilepsy, unspecified, not intractable, without status epilepticus; Q28.2 Arteriovenous malformation of cerebral vessels; Z79.4 Long term (current) use of insulin
CPT/HCPCS: 70450; 70496; 70498; 71045; 80048; 84484; 85025; 85610; 85730; 93005; 99285; J7030; Q9967; A4216

== ENCOUNTER 2021-06-16 15:32 | Emergency (ER) | payer MEDICARE, MEDICAID, SELFPAY ==
[2021-06-16 15:33] VITALS: BP 121/76; PULSE 77; RESP 14; TEMP 36.9; O2SAT 99; BMI 38.6
--- NOTE | 2021-06-16 15:46 | CT_ITS ---
STUDY: CT BRAIN WITHOUT CONTRAST REASON FOR EXAM: Female, 40 years old. trauma, headache RADIATION DOSAGE (If Supplied By Facility): CTDIvol = ( 44.99 ) mGy, DLP = ( 762.36 ) mGycm TECHNIQUE: Transaxial CT imaging of the brain was performed without administration of intravenous contrast material. Individualized dose optimization techniques were used for this CT. COMPARISON: No relevant priors. FINDINGS: Normal soft tissue structures. Normal calvarium. Normal size ventricles and extra-axial spaces for the patient''s age. Normal white matter tracts of the cerebral hemispheres. Normal basal ganglia and thalami. Normal brainstem. Normal cerebellum. There is no intracranial hemorrhage. There are no findings of an acute ischemic infarction. Normal visualized paranasal sinuses. CT/Brain/Head without Contrast IMPRESSION: Normal unenhanced CT scan of the brain. Electronically Signed: Bryan Anne MD at 16:42 EST ,
--- NOTE | 2021-06-16 15:46 | CT_ITS ---
STUDY: CT CERVICAL SPINE WITHOUT CONTRAST REASON FOR EXAM: Female, 40 years old. trauma, neck pain RADIATION DOSAGE (If Supplied By Facility): CTDIvol = ( 28.63 ) mGy, DLP = ( 541.58 ) mGycm TECHNIQUE: High resolution transaxial imaging was performed without contrast material. Sagittal and coronal images were reconstructed. Individualized dose optimization techniques were used for this CT. COMPARISON: None FINDINGS: Normal craniovertebral junction. Normal anterior atlantoaxial articulation. Normal odontoid process. Normal cervical lordosis. Normal vertebral bodies and posterior osseous elements. C2-3: Normal endplates. Normal disc height and morphology. Normal central canal and intervertebral neuroforamina. C3-4: Normal endplates. Normal disc height and morphology. Normal central canal and intervertebral neuroforamina. C4-5: Normal endplates. Normal disc height and morphology. Normal central canal and intervertebral neuroforamina. C5-6: Normal endplates. Normal disc height and morphology. Normal central canal and intervertebral neuroforamina. C6-7: Normal endplates. Normal disc height and morphology. Normal central canal and intervertebral neuroforamina. C7-T1: Normal endplates. Normal disc height and morphology. Normal central canal and intervertebral neuroforamina. Normal visualized soft tissue structures. CT/Spine Cervical without Contras IMPRESSION: Normal unenhanced CT examination of the cervical spine. Electronically Signed: Bryan Anne MD at 16:50 EST ,
--- NOTE | 2021-06-16 15:47 | EKG12_ITS ---
Test Reason : Blood Pressure : / mmHG Vent. Rate : 076 BPM Atrial Rate : 076 BPM P-R Int : 120 ms QRS Dur : 082 ms QT Int : 382 ms P-R-T Axes : 034 017 025 degrees QTc Int : 429 ms Normal sinus rhythm Low voltage QRS Confirmed by CESAR ELIZONDO, BRET ([id number]), communications editor LAURA STRAUSS ([id number]) on 06/17/2021 11:38:39 AM Referred By: KELVIN Confirmed By:BRET GUERRERO MD
--- NOTE | 2021-06-16 15:51 | EDS_ITS ---
HPI History of Present Illness Chief Complaint: Fall Informant: patient Narrative Narrative: Patient presents after a fall on steps about 5 hours ago. She states she has chronic back pain and several protruding disks. She gets radiculopathy down her leg on the left sometimes although it is not going on now. She was on the steps. She states her legs can a gave out on her. This happens on occasion. This did cause her to fall. However she hit her head and she thinks she blacked out for just a second after hitting her head. She still went to work. But she just does not feel right. She feels just generalized weak. Her back might be a little bit more sore than baseline but not markedly so. She is not having radicular symptoms. No bowel or bladder dysfunction. No nausea vomiting fevers or chills. She did have omicron a few weeks ago but states that is fully resolved and she has no pulmonary symptoms dyspnea or chest pain at all. She has a headache mostly on the left. She also has sore neck. Prior to the fall she felt at her baseline. Motion makes her soreness worse. Nothing really makes it better except rest. [facility] Medical History AVM (arteriovenous malformation) brain Entropion of left lower eyelid HLD (hyperlipidemia) HTN (hypertension) Seizure disorder Type II diabetes mellitus Home Medications gabapentin 800 mg PO TIDCM 05/10/17 [History Last Taken 08/14/18] Jardiance 25 mg PO DAILY 08/14/18 [History Last Taken 08/14/18] repaglinide 1 mg PO DAILY 12/28/19 [History Last Taken Unknown] insulin glargine 100 unit/mL subcutaneous solution 55 unit SUBCUT QHS 09/13/20 [History Last Taken Unknown] thyroid (pork) 15 mg tablet 15 mg PO DAILY 09/13/20 [History Last Taken Unknown] doxycycline monohydrate 100 mg capsule 100 mg PO BID #20 cap 06/04/21 [Rx Last Taken Unknown] Allergy/AdvReac Type Severity Reaction Status Date / Time Sulfa (Sulfonamide Allergy Intermediate Hives Verified 04/30/21 20:16 Antibiotics) Iodinated Contrast Media Allergy Mild Rash Verified 04/30/21 20:16 nortriptyline AdvReac Severe Other Verified 04/30/21 20:16 metformin AdvReac Intermediate Diarrhea Verified 04/30/21 20:16 morphine AdvReac Itching Verified 04/30/21 20:16 Social History Smoking Status: Never smoker ROS ROS ED Constitutional Constitutional ED: Denies chills or fever(s) Eyes Eyes: Denies blurry vision or change in vision ENT ENT ED: Denies ear pain, rhinorrhea or sore throat Cardiovascular Cardiovascular: Denies chest pain or palpitations Respiratory/Chest Respiratory/Chest: Denies cough or dyspnea Gastrointestinal Gastrointestinal: Denies abdominal pain, diarrhea, nausea or vomiting Genitourinary Genitourinary ED: Denies dysuria or hematuria Musculoskeletal Musculoskeletal: Reports back pain and neck pain Integumentary Denies abscess, Abrasions or rash Neurologic Neurologic: Reports headache(s); Denies paresthesias or weakness Endocrine Endocrinology: Denies polydipsia or polyuria Hematologic/Lymphatic Hematologic/Lymphatic: Reports other Details: No anticoagulation. ; Denies easy bleeding or easy bruising Allergic/Immunologic Allergic/Immunologic ED: Denies mouth swelling or urticaria EXAM Physical Exam Const Vital Signs: 06/16/21 15:33 06/16/21 15:40 06/16/21 17:54 Temperature 98.5 F Temperature Source Oral Pulse Rate 77 78 Respiratory Rate 14 17 Respiratory Effort Normal Respiratory Depth Normal Respiratory Pattern Normal Blood Pressure 121/76 H 148/84 H Blood Pressure Mean 91 105 Pulse Ox 99 98 Oxygen Delivery Method Room Air Room Air Positive well nourished and well developed General Appearance ED: well developed and NAD HEENT HEENT Narrative: No notable trauma visible at this time on exam. atraumatic Eyes PERRL and EOMs intact bilaterally Neck Neck Narrative: There is some tenderness diffusely on the neck mostly on the left side. Chest Wall inspection of chest normal Resp normal respiratory effort and clear to auscultation bilaterally Resp Narrative: No pain with a deep breath. Auscultation: Negative for rales, rhonchi, wheezes or diminished lung sounds Cardio regular rhythm and no murmurs Rate: regular rate GI normal to inspection, nondistended, normoactive bowel sounds and non-tender Palpation: soft Back/Spine normal to inspection Back/Spine Narrative: Mild soreness of the cervical spine and mild diffuse at lumbar. No contusions noted at this point. Extremity normal to inspection and full ROM Neuro oriented x3, moves all extremities, no focal motor deficits and no sensory deficits noted Sensorium / Orientation: alert, oriented to person, oriented to place and oriented to time; Negative for orientation impaired, lethargic or stuporous Psych mental status grossly normal and thought process normal Skin no rashes or lesions noted and no wounds MDM MDM MDM Narrative Medical decision making narrative: Patient's electrolytes, CBC are not showing any acute process. She has minimal elevation in creatinine 1.16. CT scan of the head and neck are negative. Lumbar spine x-rays are normal. Patient is better but still having some pain. I explained that I can give her a dose of p ain meds here. However [id number] meds ice and rest should be appropriate. Lab Data Attestation: I reviewed the patient's lab results. Labs: Laboratory Results - last 24 hr 06/16/21 06/16/21 16:00 16:00 WBC 5.4 RBC 5.37 Hgb 14.7 Hct 44.1 MCV 82.1 MCH 27.4 MCHC 33.3 RDW Std Deviation 41.9 RDW Coeff of Quentin 14.5 Plt Count 301 MPV 10.3 Immature Gran % (Auto) 0.900 Neut % (Auto) 47.3 Lymph % (Auto) 36.1 [place] % (Auto) 8.6 Eos % (Auto) 5.6 H Baso % (Auto) 1.5 H Absolute Neuts (auto) 2.6 Absolute Lymphs (auto) 1.94 Nucleated RBC % 0 Sodium 136 Potassium 4.4 Chloride 105 Carbon Dioxide 26.0 Anion Gap 5 BUN 11 Creatinine 1.16 H Estim Creat Clear Calc 58.59 Est GFR (MDRD) Af Amer 67 Est GFR (MDRD) Non-Af 55 L BUN/Creatinine Ratio 9.5 L Glucose 223 H Calcium 8.6 Radiography Diagnostic Testing: Clinical Impression(s) from Imaging Studies Brain CT 06/16/21 15:46 IMPRESSION: Normal unenhanced CT scan of the brain. Electronically Signed: Bryan Anne MD at 16:42 EST , Cervical Spine CT 06/16/21 15:46 IMPRESSION: Normal unenhanced CT examination of the cervical spine. Electronically Signed: Bryan Anne MD at 16:50 EST , Lumbar Spine X-Ray 06/16/21 16:30 IMPRESSION: Normal x-ray examination of the lumbar spine. Electronically Signed: Bryan Anne MD at 16:51 EST , EKG Initial EKG: Comments: EKG done for fall read by me shows normal sinus rhythm with overall rate of 76. No ectopy. No acute ST elevation or depression. [place] interval, QRS duration and QTc normal. Discharge Plan Triage Chief Complaint: Fall ED Provider: Philippe Ruiz Dx/Rx/DC Orders Clinical Impression: Fall from steps, Lumbar strain, Closed head injury, Cervical strain Instructions: ED Head Injury (Adult) Prescriptions: No Action thyroid (pork) [[place] Thyroid] 15 mg tablet 15 mg PO DAILY RF: 0 Lantus U-100 Insulin 100 unit/mL solution 55 unit subcut QHS RF: 0 doxycycline monohydrate 100 mg capsule 100 mg PO BID Qty: 20 RF: 0 gabapentin 300 MG capsule 800 mg PO TIDCM RF: 0 Jardiance 25 MG tablet 25 mg PO DAILY RF: 0 repaglinide 1 MG tablet 1 mg PO DAILY RF: 0 Primary Care Provider: Jhonny Valladares Referrals: Jhonny Valladares MD [Primary Care Provider] - 3-5 Days Disposition Disposition: Home, Self Care
[2021-06-16 16:05] LABS: Absolute Lymphocyte Count 1.94 X10^3/uL (0.83-4.51); Absolute Neutrophil Count 2.6 X10^3/uL (2.0-7.7); Basophil# 0.08 X10^3/uL; Basophil% 1.5 % (0-1); Eosinophils% 5.6 % (0-5); Hematocrit 44.1 % (37-47); Hemoglobin 14.7 g/dL (12.0-15.0); Lymphocyte # 1.94 X10^3/ul (0.83-4.51); Lymphocyte % 36.1 % (19-41); Mean Corp Hgb Conc 33.3 g/dL (32-36); Mean Corpuscular Hgb 27.4 pg (27.0-32.0); Mean Corpuscular Volume 82.1 fL (81-99); Mean Platelet Vol. 10.3 fl (6.2-12.0); Monocyte# 0.46 X10^3/uL; Monocyte% 8.6 % (0-10); NRBC Flagged by Analyzer 0 % (0-5); Neutrophil # 2.55 X10^3/uL (2.7-7.7); Neutrophil % 47.3 % (47-70); Platelet Count 301 K/mm3 (150-450); RBC Distribution Width CV 14.5 % (11.6-14.6); RBC Distribution Width SD 41.9 fl (35.1-43.9); Red Blood Count 5.37 M/mm3 (4.2-5.4); White Blood Count 5.4 K/mm3 (4.4-11.0)
[2021-06-16] MEDS: Ketorolac 15 MG/ML Vial IV (16:08)
[2021-06-16 16:28] LABS: Anion Gap 5 (5-15); BUN 11 mg/dL (7-18); BUN/Creat Ratio 9.5 RATIO (10-20); Calcium,Total 8.6 mg/dL (8.5-10.1); Chloride 105 mmol/L (98-107); Creatinine, Serum 1.16 mg/dL (0.55-1.02); EST Glomerular Filtration Rate 55 mL/min (>60); Est Glom Filt Rate - Afr Amer 67 mL/min (>60); Estimated Creatinine Clearance 58.59 ml/min; Glucose 223 mg/dL (74-106); Potassium 4.4 mmol/L (3.5-5.1); Sodium Level 136 mmol/L (136-145)
--- NOTE | 2021-06-16 16:30 | RAD_ITS ---
STUDY: X-RAY - LUMBAR SPINE REASON FOR EXAM: Female, 40 years old. trauma, low back pain TECHNIQUE: 2 view(s) of the lumbar spine were obtained. COMPARISON: None FINDINGS: Normal lumbar lordosis. There is no substantial scoliosis. There is a normal alignment of the vertebrae. Normal vertebral bodies and endplates. Normal disc space heights. The soft tissue structures are unremarkable. RAD/Lumbar Spine 2 or 3 Views IMPRESSION: Normal x-ray examination of the lumbar spine. Electronically Signed: Bryan Anne MD at 16:51 EST ,
[2021-06-16 17:54] VITALS: BP 148/84; PULSE 78; RESP 17; O2SAT 98
[2021-06-16] MEDS: oxyCODONE 5 MG Tablet PO (18:43)
[2021-06-16 18:44] VITALS: BP 138/89; PULSE 88; RESP 16; O2SAT 97
== END 2021-06-16 18:44 | disposition home or self-care (01) ==
PROVIDERS: Emergency Provider Emergency Medicine; PCP Family Medicine; Visit Provider Emergency Medicine
DX: S09.90XA Unspecified injury of head, initial encounter (principal); G40.909 Epilepsy, unspecified, not intractable, without status epilepticus; E11.9 Type 2 diabetes mellitus without complications; S39.012A Strain of muscle, fascia and tendon of lower back, initial encounter; S16.1XXA Strain of muscle, fascia and tendon at neck level, initial encounter; E78.5 Hyperlipidemia, unspecified; I10 Essential (primary) hypertension; W10.9XXA Fall (on) (from) unspecified stairs and steps, initial encounter
CPT/HCPCS: 70450; 72100; 72125; 80048; 85025; 93005; 96361; 96374; 99285; J7030; A4216

== ENCOUNTER → 2021-09-22 | Outpatient (CLI) | payer MEDICARE, MEDICAID, SELFPAY ==
--- NOTE | 2021-09-22 13:03 | SP.MBSS_ITS ---
Modified Barium Swallow - Patient Information Study Date: 09/22/21 Study Time: 13:00 Direct Billable Minutes: 80 Total Minutes procedure & reportin Diagnosis: Dysphagia, unspecified (R13.10) Referring Physician: Yazmin Coreas NP Reason for Referral: Objectively assess swallow function, risk for aspiration, and determine recommendations for least restrictive diet textures and compensatory strategies to improve safety of swallow. Medical History: The patient is a 41-year-old female with PMH including AVM brain, Entropion of the left lower eyelid, HLD, HTN, seizure disorder, and DM Type II. She reports increased difficulty swallowing in the past month characterized by sensation of solid foods feeling caught in her throat and coughing with solids. She avoids eating meats. She denies difficulty swallowing liquids and reports that liquid wash typically with clear sensation of pharyngeal retention. Hx of PNA secondary to COVID-19 in December 2020, but she also reports having PNA on and off prior to this instance. The patient also reports hx of CVA in 2005. Current Diet Ordered: Soft solids / Thin liquids Dentition: WNL Mental Status: WNL Respiratory Status: Oxygenating on Room Air - Penetration-Aspiration Scale Penetration-Aspiration Scale: OBJECTIVE ASSESSMENT OF SWALLOW FUNCTION (QUANTITATIVE ? PER TRIAL): PENETRATION / ASPIRATION SCALE (ALBERTS): 1 = does not enter airway 2 = enters airway/above vocal folds/ejected 3 = enters airway/above vocal folds/not ejected 4 = enters airway/contacts vocal folds/ejected 5 = enters airway/contacts vocal folds/not ejected 6 = enters airway/below vocal folds/ejected 7 = enters airway/below vocal folds/not ejected despite effort 8 = enters airway/below vocal folds/no effort VIDEOFLOROSCOPIC SCALE SCORE (ALBERTS): Grade I = aspiration of material that has penetrated into the laryngeal vestibule, intact cough reflex Grade II = aspiration < 10 % of the bolus, intact cough reflex Grade III = aspiration of < 10 % of the bolus, reduced cough reflex or aspiration of > 10 % of the bolus, intact cough reflex Grade IV = aspiration of > 10 % of the bolus, reduced cough reflex - Penetration-Aspiration Scale Score Thin Liquid via teaspoon Result: 1= does not enter airway Thin Liquid via teaspoon Trial 2 Result: 1= does not enter airway Thin Liquid via small single sip from cup Result: 1= does not enter airway Thin Liquid via sequential sips from cup Result: 1= does not enter airway [place] Thick Liquid via small single sip from cup Result: 1= does not enter airway [place] Thick Liquid via small single sip from cup Result: 1= does not enter airway Pudding via teaspoon with esophageal screen Result: 1= does not enter airway Comment: Esophageal retention of bolus throughout the medial and distal esophagus. 1/2 Cookie Result: 1= does not enter airway Whole cookie with esophageal screen Result: 1= does not enter airway Thin Liquid via single sip from straw Result: 2= enter airway/above vocal folds/ejected Thin Liquid via sequential sips from straw Result: 1= does not enter airway Thin Liquid via small single sip from cup Trial 2 Result: 3= enters airways/above vocal folds/not ejected Thin Liquid via small single sip from cup Effortful swallow Result: 1= does not enter airway - Oral Phase Labial Seal: No Labial Escape Tongue Control During Bolus Hold: Posterior escape of less than half of bolus Bolus Preparation/Mastication: Slow prolonged chewing/mashing with complete recollection Bolus Transport/Lingual Motion: Repetitive/disorganized tongue motion Oral Residue: Majority of bolus remaining - Piecemeal deglutition - Pharyngeal Phase Initiation of Pharyngeal Swallow: Bolus head in pyriforms Soft Palate Elevation: Trace column of contrast/air between soft palate and pharyngeal wall Laryngeal Elevation: Partial superior movement thyroid cart/partial apprx aryt- epig petiole Anterior Hyoid Excursion: Partial anterior movement Epiglottic Movement: Partial inversion Laryngeal Vestibule Closure at Height of Swallow: Incomplete; narrow column of air/contrast in laryngeal vestibule Pharyngeal Stripping Wave: Present - complete Pharyngoesophageal Segment Opening: Complete distension and complete duration; no obstruction of flow Tongue Base Retraction: Narrow column of contrast between tongue base & post. pharyngeal wall Pharyngeal Residue: Trace residue within or on pharyngeal structures - Esophageal Phase Esophageal Clearance: Esophageal retention - Treatment Strategies Effects of treatment strategies attemped:: Effortful swallow = Effective. - Diagnosis/Impression Diagnosis: Mild oropharyngeal phase dysphagia (R13.12) Impression: The oral phase is marked by slow, but effective mastication and piecemeal deglutition, especially noted with trials of cookie bolus. She required multiple swallows clear cookie contrast from the oral cavity. Repetitive tongue motion observed for A-P of certain trials. Premature posterior loss of liquid bolus to the pyriforms resulting in suboptimal placement upon swallow onset. The pharyngeal phase is marked by mildly decreased airway closure during the swallow and trace pharyngeal residue. She presented with decreased laryngeal elevation and anterior hyoid excursion. She also has mildly decreased tongue base retraction. Trace pharyngeal residue after the swallow. Penetration of thin liquids via straw with full ejection from the laryngeal vestibule. Penetration of thin liquids via cup without full ejection from the laryngeal vestibule. She demonstrated no aspiration during the study; however, she is at increased risk for aspiration of residue remaining in the laryngeal vestibule after the swallow. The esophageal phase is marked by retention of pudding bolus in mid and distal esophagus. - Recommendations Diet: Regular Textures - Easy to chew textures (IDDSI Level 7), Thin Liquids Comment: Consider adding sauce and gravy to dry textures. Compensatory Strategies: Small Bites, Small Sips - Utilize effortful swallows with sips, Slow Rate, Alternate bites/solids and sips/liquids, Sitting upright, Remain sitting upright for 30 minutes after PO intake Recommend Repeat Modified Barium Swallow: TBD Need for Skilled Speech Therapy Services: Yes Comment: Will recommend the patient for outpatient dysphagia therapy to address deficits in oropharyngeal swallow function. Would consider the patient for oropharyngeal strengthening to improve lingual coordination, laryngeal elevation, hyoid excursion, and tongue base retraction (e.g. lingual coordination exercises, Effortful, Russ, CTAR, Maribell). The patient would benefit from thorough education regarding diet recommendations and recommended compensatory strategies. Recommended Referrals: GI Consult - Esophageal retention of pudding bolus in mid and distal esophagus. Patient reports globus sensation. Education Completed: 1. Described result of evaluation., 7. Pt requires further education on strategies & risks. - Status Active ST Patient: Active - Contact Information [facility] Speech Therapy:: Dianelys Rocha M.A. [facility] Speech-Language Pathologist [facility] [address] [place] [place] [address] [email or web address] [phone] 09/22/21 14:11
== END | disposition home or self-care (01) ==
LOC: RAD 12:19
PROVIDERS: PCP Family Medicine; Visit Provider Nurse Practitioner Family
DX: R13.10 Dysphagia, unspecified (principal)
CPT/HCPCS: 74230; 92611

== ENCOUNTER 2021-10-26 13:40 | Emergency (ER) | payer MEDICARE, MEDICAID, SELFPAY ==
[2021-10-26 13:41] VITALS: BP 156/102; PULSE 89; RESP 16; TEMP 36.9; O2SAT 98; BMI 35.5
--- NOTE | 2021-10-26 14:10 | ED.VIS.LOWEX ---
HPI History of Present Illness Chief Complaint: Lower Extremity Injury Narrative Narrative: 41-year-old female presenting with right calf pain for 1 day. She states that yesterday it seemed a little more swollen and a little more red. Today it is improved. She took Aleve and it did help the pain somewhat. She went to urgent care today to be evaluated for this and they sent her to the emergency room out of concern for DVT. Patient has no DVT risk factors and no history. She not having chest pain or shortness of breath. She denies any trauma or known injury. She does not have any numbness or tingling. [facility] Medical History AVM (arteriovenous malformation) brain Entropion of left lower eyelid HLD (hyperlipidemia) HTN (hypertension) Seizure disorder Type II diabetes mellitus Home Medications gabapentin 300 mg capsule 800 mg PO TIDCM nerve pain 05/10/17 [History Last Taken 08/14/18] empagliflozin 25 mg tablet (Jardiance) 25 mg PO DAILY DM 08/14/18 [History Last Taken 08/14/18] repaglinide 1 mg tablet 1 mg PO DAILY 12/28/19 [History Last Taken Unknown] insulin glargine 100 unit/mL subcutaneous solution (Lantus U-100 Insulin) 55 unit subcut QHS 09/13/20 [History Last Taken Unknown] thyroid (pork) 15 mg tablet ([place] Thyroid) 15 mg PO DAILY 09/13/20 [History Last Taken Unknown] doxycycline monohydrate 100 mg capsule 100 mg PO BID #20 caps 06/04/21 [Rx Last Taken Unknown] tizanidine 4 mg tablet (Zanaflex) 4 mg PO Q8H PRN muscle spasticity #14 tabs 10/26/21 [Rx Last Taken Unknown] Allergy/AdvReac Type Severity Reaction Status Date / Time Sulfa (Sulfonamide Allergy Intermediate Hives Verified 10/26/21 13:43 Antibiotics) Iodinated Contrast Media Allergy Mild Rash Verified 10/26/21 13:43 nortriptyline AdvReac Severe Other Verified 10/26/21 13:43 metformin AdvReac Intermediate Diarrhea Verified 10/26/21 13:43 morphine AdvReac Itching Verified 10/26/21 13:43 Social History Smoking Status: Never smoker ROS ROS ED Constitutional Constitutional ED: Denies chills or fever(s) Eyes Eyes: Denies change in vision ENT ENT ED: Denies rhinorrhea or sore throat Cardiovascular Cardiovascular: Denies chest pain or palpitations Respiratory/Chest Respiratory/Chest: Denies cough or dyspnea Gastrointestinal Gastrointestinal: Denies abdominal pain or constipation Genitourinary Genitourinary ED: Denies dysuria or hematuria Musculoskeletal Musculoskeletal: Reports other Details: Right calf pain ; Denies arthralgias Neurologic Neurologic: Denies headache(s) or paresthesias Psychiatric Psychiatric: Denies anxiety or depression EXAM Physical Exam Const Vital Signs: 10/26/21 13:41 Temperature 98.4 F Temperature Source Temporal Pulse Rate 89 Respiratory Rate 16 Blood Pressure 156/102 H Blood Pressure Mean 120 Pulse Ox 98 Oxygen Delivery Method Room Air Positive well nourished HEENT Reports moist mucous membranes Chest Wall inspection of chest normal Resp normal respiratory effort and no retractions Cardio regular rate and regular rhythm Neuro oriented x3 and CN's II-XII intact bilaterally Skin Skin Narrative: Left medial calf is mildly tender. There is no erythema, or bruising. Minimally tender to palpation. No crepitance. MDM MDM MDM Narrative Medical decision making narrative: Patient presenting with right calf pain. After going to urgent care they stressed they were concerned for DVT although the patient does not have any risk factors for this. She does have some mild pain and swelling in the medial aspect of the right calf. I did offer her an outpatient follow-up duplex for tomorrow. She is amenable to this. She does not recall injuring herself but states that the muscle relaxer might be helpful in addition to Aleve. This was provided. Patient discharged home in stable condition. Impression: 1. Right calf pain Discharge Plan Triage Chief Complaint: Lower Extremity Injury ED Provider: Hima Garvin Dx/Rx/DC Orders Instructions: ED Leg Spasm Prescriptions: New tizanidine [Zanaflex] 4 mg tablet 4 mg PO Q8H PRN (Reason: muscle spasticity) Qty: 14 0RF No Action thyroid (pork) [[place] Thyroid] 15 mg tablet 15 mg PO DAILY Lantus U-100 Insulin 100 unit/mL solution 55 unit subcut QHS doxycycline monohydrate 100 mg capsule 100 mg PO BID Qty: 20 0RF gabapentin 300 MG capsule 800 mg PO TIDCM Jardiance 25 MG tablet 25 mg PO DAILY repaglinide 1 MG tablet 1 mg PO DAILY Other Ambulatory Orders: Venous Duplex US, Unilateral (Routine) Facility: [facility] - Location: [facility] Ordered By: Dr. Hima Garvin Primary Care Provider: Jhonny Valladares Referrals: Jhonny Valladares MD [Primary Care Provider] - Disposition Disposition: Home, Self Care
== END 2021-10-26 16:15 | disposition home or self-care (01) ==
LOC: ED 14:18
PROVIDERS: Emergency Provider Student in an Organized Health Care Education/Training Program; PCP Family Medicine; Visit Provider Student in an Organized Health Care Education/Training Program
DX: M79.661 Pain in right lower leg (principal); E11.9 Type 2 diabetes mellitus without complications; M79.89 Other specified soft tissue disorders; I10 Essential (primary) hypertension; E78.5 Hyperlipidemia, unspecified
CPT/HCPCS: 99282

== ENCOUNTER → 2021-10-27 | Outpatient (CLI) | payer MEDICARE, MEDICAID, SELFPAY ==
--- NOTE | 2021-10-27 13:54 | VDLE_ITS ---
Reason For Study: Pain RIGHT GSV is normal. CFV is compressible, spontaneous, phasic, competent and demonstrates normal augmentation. FV is compressible, spontaneous, phasic, competent and demonstrates normal augmentation. POP V is compressible, spontaneous, phasic, competent and demonstrates normal augmentation. T/P Trunk is compressible. PTV is compressible. RT PerV is compressible. Non vascular, heterogeneous structure noted distal Rt calf over area of concern. Procedure This is a venous duplex using B-mode, color flow and spectral Doppler. Exam performed in department. A preliminary report was called and/or faxed to Dr. Valladares. VL/Venous Duplex US, Unilateral Interpretation Summary There is no evidence of right lower extremity deep vein thrombosis. Right great saphenous vein appears patent and compressible segmentally. Nonvascular heterogenous structure noted in the distal right calf that extends beyond a single viewing screen. Undetermined etiology. Clinical correlation or further imaging if indicated. Ordering Physician: Hima Garvin Referring Physician: Jhonny Valladares Performed By: [employer], LUCILA, RVT
== END | disposition home or self-care (01) ==
LOC: CVS 13:52
PROVIDERS: PCP Family Medicine; Referring Provider Student in an Organized Health Care Education/Training Program; Visit Provider Student in an Organized Health Care Education/Training Program
DX: M79.605 Pain in left leg (principal)
CPT/HCPCS: 93971

== ENCOUNTER 2021-11-22 22:59 | Observation (INO) | payer MEDICARE, MEDICAID, SELFPAY ==
--- NOTE | 2021-11-22 23:02 | CT_ITS ---
STUDY: CT HEAD STROKE PROTOCOL W/O CONTRAST INJECTION REASON FOR EXAM: Female, 41 years old. Neurodeficit. Acute stroke suspected. RADIATION DOSAGE (If Supplied By Facility): CTDIvol = ( ) mGy, DLP = ( 829.85 ) mGycm TECHNIQUE: Transaxial CT imaging of the brain was performed without administration of intravenous contrast material. Individualized dose optimization techniques were used for this CT. COMPARISON: 06/16/2021 FINDINGS: Normal soft tissue structures. Normal calvarium. Normal size ventricles and extra-axial spaces for the patient''s age. Normal white matter tracts of the cerebral hemispheres. Normal basal ganglia and thalami. 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 Normal brainstem. Normal cerebellum. There is no intracranial hemorrhage. There are no findings of an acute ischemic infarction. Normal visualized paranasal sinuses. ASPECT score: 10 CT/STROKE Brain/Head without Cont IMPRESSION: No acute intracranial or calvarial abnormality. No major interval change N.B. : The above Results were Read Back by Quentin Moura DO to RADHA Ragland, and understanding confirmed on 11/22/2021 23:32:24 (ET). Electronically Signed: Quentin Moura DO at 23:29 EDT Reading Location ID and State: [facility] / [place] Tel [phone], Service support ,
--- NOTE | 2021-11-22 23:02 | EKG12_ITS ---
Test Reason : NEURO Blood Pressure : / mmHG Vent. Rate : 076 BPM Atrial Rate : 076 BPM P-R Int : 140 ms QRS Dur : 082 ms QT Int : 386 ms P-R-T Axes : 034 005 023 degrees QTc Int : 434 ms Normal sinus rhythm Normal ECG Confirmed by ANIKA ELIZONDO, STACI ([id number]), health editor SYMONE BLISS ([id number]) on 11/24/2021 10:57:55 AM Referred By: HARMAN Confirmed By:STACI DONALDSON MD
--- NOTE | 2021-11-22 23:03 | CT_ITS ---
We are attempting to reach an attending provider to discuss findings. An addendum with communication details will be sent when the communication is complete. STUDY: CTA HEAD AND NECK WITH CONTRAST REASON FOR EXAM: Female, 41 years old. Neural deficit. Acute stroke suspected. RADIATION DOSAGE (If Supplied By Facility): CTDIvol = ( 23.6 ) mGy, DLP = ( 860.73 ) mGycm TECHNIQUE: CT angiography was performed with a multi-detector CT scanner. Data acquisition was obtained from the skull base through the vertex following intravenous administration of IV 100mL [id number]-[id number]. MIP images were reconstructed from the axial data set. Post-processing of the angiographic images was performed, with multiplanar reformation and 3D reconstruction. Individualized dose optimization techniques were used for this CT. COMPARISON: CT of the head, 11/22/2021. FINDINGS: Normal bilateral petrous carotid arteries. Normal right cavernous carotid artery with a normal supraclinoid bifurcation. Normal left cavernous carotid artery with a normal supraclinoid bifurcation. Normal right A1 segments of the anterior cerebral artery. Normal left A1 segments of the anterior cerebral artery. Normal intact anterior communicating artery (ACOM). Normal bilateral A2 segments of the anterior cerebral arteries. Normal right M1 and M2 segments of the middle cerebral arteries, with a normal M1 bifurcation. Normal left M1 and M2 segments of the middle cerebral arteries, with a normal M1 bifurcation. Normal right posterior communicating artery (PCOM). There is non-visualization of the left posterior communicating artery (PCOM). Normal bilateral vertebral arteries. Normal basilar artery with a normal basilar bifurcation. The visualized bilateral superior cerebellar (SCA) arteries are normal. Normal P1, P2 and visualized P3 segments of the left posterior cerebral artery. There is an absent P1 segment of the right posterior cerebral artery. The P2 and visualized P3 segments are supplied via the posterior communicating artery. There is no demonstrated aneurysm of the ione of [place]. There is no demonstrated abnormality of the visualized brain. AORTIC ARCH: Normal visualized aortic arch. Normal origins of the brachiocephalic, left common carotid, and left subclavian arteries. RIGHT CAROTID ARTERIES: Normal right common carotid artery (CCA). Normal right common carotid bulb. Normal origin of the right internal carotid (ICA) artery without a hemodynamically significant stenosis. Normal visualized cervical portion of the right internal carotid artery. Normal origin of the right external carotid artery (ECA). LEFT CAROTID ARTERIES: Normal left common carotid artery (CCA). Normal left common carotid bulb. Normal origin of the left internal carotid (ICA) artery without a hemodynamically significant stenosis. Normal visualized cervical portion of the left internal carotid artery. Normal origin of the left external carotid artery (ECA). VERTEBRAL ARTERIES: There is enhancement within the bilateral vertebral arteries with a small left vertebral artery, and a dominant right vertebral artery. CT/STROKE CTA Head AND Neck W/Con IMPRESSION: 1. Absent P1 segment of the right posterior cerebral artery. The ione of [place] is otherwise unremarkable. 2. Normal bilateral carotid vertebral arteries. Electronically Signed: Quentin Moura DO at 23:50 EDT ,
--- NOTE | 2021-11-22 23:14 | NURSING ---
called [facility] line to notify of stroke alert [facility]ants a call back with updated weight and vitals once pt is back from CT.
[2021-11-22 23:22] VITALS: BP 142/79; PULSE 74; RESP 16; TEMP 36.6; O2SAT 96; BMI 36.6
[2021-11-22] MEDS: DiphenhydrAMINE 50 MG/ML Syringe IV (23:33)
[2021-11-22] MEDS: 0.9% Normal Saline 1,000 ML 100 ML IV (23:34)
[2021-11-22 23:35] LABS: Absolute Lymphocyte Count 2.56 X10^3/uL (0.83-4.51); Absolute Neutrophil Count 3.2 X10^3/uL (2.0-7.7); Basophil# 0.04 X10^3/uL; Basophil% 0.6 % (0-1); Hematocrit 43.1 % (37-47); Lymphocyte # 2.56 X10^3/ul (0.83-4.51); Lymphocyte % 38.6 % (19-41); Mean Corp Hgb Conc 32.5 g/dL (32-36); Mean Corpuscular Hgb 26.8 pg (27.0-32.0); Mean Corpuscular Volume 82.6 fL (81-99); Mean Platelet Vol. 10.4 fl (6.2-12.0); Monocyte# 0.43 X10^3/uL; Monocyte% 6.5 % (0-10); NRBC Flagged by Analyzer 0 % (0-5); Neutrophil # 3.16 X10^3/uL (2.7-7.7); Neutrophil % 47.7 % (47-70); Platelet Count 231 K/mm3 (150-450); RBC Distribution Width CV 14.7 % (11.6-14.6); RBC Distribution Width SD 43.8 fl (35.1-43.9); Red Blood Count 5.22 M/mm3 (4.2-5.4); White Blood Count 6.6 K/mm3 (4.4-11.0)
--- NOTE | 2021-11-22 23:38 | RAD_ITS ---
STUDY: X-RAY CHEST REASON FOR EXAM: Female, 41 years old. Neuro deficit, acute, stroke suspected TECHNIQUE: Single AP portable view of the chest. COMPARISON: 04/30/2021 FINDINGS: The lungs are clear and expanded. There is no demonstrated pleural abnormality. Normal size heart. Normal mediastinum and jose daniel. Normal visualized pulmonary arteries. Normal visualized aortic arch and descending thoracic aorta. Normal visualized thoracic spine. Normal visualized ribs, clavicles, and shoulders. There is no demonstrated abnormality of the visualized soft tissue structures of the upper abdomen. RAD/Chest 1 View IMPRESSION: Normal x-ray examination of the chest. Electronically Signed: Vidal Huber DO at 0:12 EDT ,
[2021-11-22] MEDS: Contrast Allergy Safety Check IV (23:41)
[2021-11-22 23:44] LABS: Anion Gap 9 (5-15); BUN 23 mg/dL (7-18); Calcium,Total 8.8 mg/dL (8.5-10.1); Chloride 107 mmol/L (98-107); Creatinine, Serum 0.89 mg/dL (0.55-1.02); EST Glomerular Filtration Rate 75 mL/min (>60); Est Glom Filt Rate - Afr Amer 91 mL/min (>60); Estimated Creatinine Clearance 78.66 ml/min; Glucose 239 mg/dL (74-106); Potassium 3.4 mmol/L (3.5-5.1); Sodium Level 140 mmol/L (136-145); Troponin-I HS 4 pg/mL (3.0-54.0)
[2021-11-23] VITALS (13 sets, daily range): BP systolic 119–138; BP diastolic 73–89; PULSE 64–72; RESP 16–18; TEMP 36.6–36.9; O2SAT 95–97; BMI 36.6; BMI 36.3
[2021-11-23 00:27] LABS: International Normalized Ratio 0.9; Partial Thromboplast Time 26.3 Seconds (24.1-36.2); Prothrombin Time (Protime)PT. 12.1 SECONDS (11.7-14.9)
--- NOTE | 2021-11-23 00:37 | EDS_ITS ---
HPI History of Present Illness Chief Complaint: Neuro S/Sx Informant: patient and EMS Narrative Narrative: Patient is a 41-year-old female with history of AVM, seizures, migraines, Anxiety/depression, diabetes mellitus, hyperlipidemia, hypertension, neuropathy and prior episodes of right-sided weakness as well as expressive aphasia with sudden onset of right-sided weakness and difficulty speaking. Patient had similar presentations like this in the past and actually received tPA for it and 08/22/2019 in our emergency room. At that time she ultimately had a negative MRI of the brain. It was ultimately thought to be either conversion disorder versus complex migraine. Patient is presenting today with right-sided weakness, slurred speech and feeling of malaise. Symptoms started approximately 2144. Stroke alert was called in the field. Patient states she was feeling well earlier today. She notes she has been under a lot of stress but denies any new significant stressors. Denies any headache. Denies any falls or head injuries. Not on any blood thinners but does take a daily Plavix. States she does follow with a neurologist in [place] who tells her that she has TIAs. No other acute complaints at this time. Notes her blood sugars have been running a little high. [facility] Medical History AVM (arteriovenous malformation) brain Entropion of left lower eyelid HLD (hyperlipidemia) HTN (hypertension) Seizure disorder Type II diabetes mellitus Home Medications gabapentin 300 mg capsule (Neurontin) 800 mg PO TIDCM nerve pain 05/10/17 [History Last Taken 08/14/18] empagliflozin 25 mg tablet (Jardiance) 25 mg PO DAILY DM 08/14/18 [History Last Taken 08/14/18] insulin glargine 100 unit/mL subcutaneous solution (Lantus U-100 Insulin) 68 unit subcut QHS 09/13/20 [History Last Taken Unknown] thyroid (pork) 15 mg tablet ([place] Thyroid) 15 mg PO DAILY 09/13/20 [History Last Taken Unknown] tizanidine 4 mg tablet (Zanaflex) 4 mg PO Q8H PRN muscle spasticity #14 tabs 10/26/21 [Rx Last Taken Unknown] insulin aspart U-100 100 unit/mL (3 mL) subcutaneous pen (Novolog Flexpen U-100 Insulin aspart) 11/23/21 [History Last Taken Unknown] Allergy/AdvReac Type Severity Reaction Status Date / Time Sulfa (Sulfonamide Allergy Intermediate Hives Verified 10/26/21 13:43 Antibiotics) Iodinated Contrast Media Allergy Mild Rash Verified 10/26/21 13:43 nortriptyline AdvReac Severe Other Verified 10/26/21 13:43 metformin AdvReac Intermediate Diarrhea Verified 10/26/21 13:43 morphine AdvReac Itching Verified 10/26/21 13:43 Family History (Updated 11/23/21 @ 01:[address] Sherie Hernandez MD) Father GERD (gastroesophageal reflux disease) Mother Rheumatoid arthritis Surgical History (Updated 11/23/21 @ 01:[address] Sherie Hernandez MD) History of surgery of uterus S/P cholecystectomy S/P hysterectomy Social History (Updated 11/23/21 @ 01:[address] Sherie Hernandez MD) household members: none Smoking Status: Never smoker alcohol intake: never substance use type: does not use ROS ROS ED Constitutional Constitutional ED: Denies chills or fever(s) Eyes Eyes: Denies blurry vision, change in vision or diplopia ENT ENT ED: Denies rhinorrhea or sore throat Cardiovascular Cardiovascular: Denies chest pain Respiratory/Chest Respiratory/Chest: Denies cough Gastrointestinal Gastrointestinal: Denies abdominal pain, nausea or vomiting Genitourinary Genitourinary ED: Denies dysuria or hematuria Musculoskeletal Musculoskeletal: Denies arthralgias Neurologic Neurologic: Reports paresthesias and weakness; Denies headache(s) Psychiatric Psychiatric: Denies anxiety EXAM Physical Exam Const Vital Signs: 11/22/21 23:22 11/22/21 23:25 11/23/21 00:01 Temperature 97.9 F Temperature Source Temporal Pulse Rate 74 70 Respiratory Rate 16 16 Blood Pressure 142/79 H 138/84 H Blood Pressure Mean 100 102 Pulse Ox 96 Oxygen Delivery Method Room Air Room Air Room Air 11/23/21 00:30 Temperature Temperature Source Pulse Rate 69 Respiratory Rate 18 Blood Pressure 127/74 H Blood Pressure Mean 91 Pulse Ox 97 Oxygen Delivery Method Room Air Positive well nourished, well developed and obese General Appearance ED: well developed and NAD Nutritional Appearance: obese HEENT Reports moist mucous membranes atraumatic Eyes PERRL and EOMs intact bilaterally Neck supple and no JVD Chest Wall inspection of chest normal and palpation of chest normal Resp normal respiratory effort and clear to auscultation bilaterally Cardio no murmurs Rate: regular rate Rhythm: regular rhythm GI normal to inspection, nondistended, normoactive bowel sounds and soft to palpation Extremity normal to inspection General Extremety ED: Negative for deformity or edema General Extremity: Negative for deformity or edema Neuro oriented x3 Neuro Narrative: Right facial droop. Right-sided weakness. Patient would not lift her right leg or right arm off the bed however is able to wiggle her fingers and toes. Normal speech. See NIH below. [place] Coma Scale: document GCS findings Spontaneous Obeys Commands Oriented 15 Psych mental status grossly normal Skin no wounds Rashes: no rashes STROKE Vital Signs/Narrative: Vital Signs Temp Pulse Resp BP Pulse Ox O2 Del Method 11/23/21 00:30 69 18 127/74 H 97 Room Air 11/23/21 00:01 70 16 138/84 H Room Air 11/22/21 23:25 Room Air 11/22/21 23:22 97.9 F 74 16 142/79 H 96 Room Air Inital Vital Signs reviewed: Yes NIHSS Initial: 1a Level of Consciousness: 0 1b LOC Questions (Score 2 if aphasic/stupor): 0 1c LOC Commands (Only score 1st attempt): 0 2 Best Gaze (If aphasic, use reflexive mvmts.): 0 3 Visual: 0 4 Facial Palsy: 2 5 Motor Arm Right (UN = amputation/fusion): 2 5 Motor Arm Left: 0 6 Motor Leg Right: 2 6 Motor Leg Left: 0 7 Limb ataxia (Only + if out of proportion): 0 8 Sensory (Aphasia/stupor=0 or 1, coma=2): 1 9 Best Language: 0 10 Dysarthria (mute, coma=2, intubated=UN): 0 11 Extinction and Inattention (only scored if +): 0 Total Score: 7 MDM MDM MDM Narrative Medical decision making narrative: Patient is evaluated for sudden onset of right-sided deficits. Stroke alert was called in the field. Patient is evaluated and she does have right-sided de ficits. She is emergently sent over to [place]. She does have a history of contrast allergy and is medicated with Solu-Medrol and Benadryl however I did obtain a stat CTA of the head neck as well especially given her history of an AVM. I did then perform a chart review showing the patient is an extensive history and is actually had similar presentation and it was not a stroke. Case is discussed with stroke neurologist at [facility], who reviewed her prior imaging as well as their notes as well. We both agree that likely this is conversion disorder versus complex migraine and the risk of tPA especially with her history of AVM is too high. Patient will be admitted for MRI however she would not receive tPA in the emergency room. Patient is informed of this and verbalizes understanding. Patient does have slight improvement to her weakness as well as her facial droop while in the emergency room but does not have complete resolution of her symptoms. Lab Data Attestation: I reviewed the patient's lab results. Labs: Laboratory Results - last 24 hr 11/22/21 11/22/21 11/22/21 23:05 23:05 23:05 WBC 6.6 RBC 5.22 Hgb 14.0 Hct 43.1 MCV 82.6 MCH 26.8 L MCHC 32.5 RDW Std Deviation 43.8 RDW Coeff of Quentin 14.7 H Plt Count 231 MPV 10.4 Immature Gran % (Auto) 0.600 Neut % (Auto) 47.7 Lymph % (Auto) 38.6 [place] % (Auto) 6.5 Eos % (Auto) 6.0 H Baso % (Auto) 0.6 Absolute Neuts (auto) 3.2 Absolute Lymphs (auto) 2.56 Nucleated RBC % 0 PT 12.1 INR 0.9 APTT 26.3 Sodium 140 Potassium 3.4 L Chloride 107 Carbon Dioxide 24.0 Anion Gap 9 BUN 23 H Creatinine 0.89 Estim Creat Clear Calc 78.66 Est GFR (MDRD) Af Amer 91 Est GFR (MDRD) Non-Af 75 BUN/Creatinine Ratio 26.0 H Glucose 239 H Calcium 8.8 Magnesium Troponin I High Sens 4 Ethyl Alcohol 11/22/21 11/22/21 23:05 23:05 WBC RBC Hgb Hct MCV MCH MCHC RDW Std Deviation RDW Coeff of Quentin Plt Count MPV Immature Gran % (Auto) Neut % (Auto) Lymph % (Auto) [place] % (Auto) Eos % (Auto) Baso % (Auto) Absolute Neuts (auto) Absolute Lymphs (auto) Nucleated RBC % PT INR APTT Sodium Potassium Chloride Carbon Dioxide Anion Gap BUN Creatinine Estim Creat Clear Calc Est GFR (MDRD) Af Amer Est GFR (MDRD) Non-Af BUN/Creatinine Ratio Glucose Calcium Magnesium 1.6 Troponin I High Sens Ethyl Alcohol < 3.0 Radiography Diagnostic Testing: Clinical Impression(s) from Imaging Studies Brain CT 11/22/21 23:02 IMPRESSION: No acute intracranial or calvarial abnormality. No major interval change N.B. : The above Results were Read Back by Quentin Moura DO to RADHA Ragland, and understanding confirmed on 11/22/2021 23:32:24 (ET). Electronically Signed: Quentin Moura DO at 23:29 EDT Reading Location ID and State: [employer] / [employer] Tel [phone], Service support , ADDENDUM: 11/22/21 2339 IMPRESSION: No acute intracranial or calvarial abnormality. No major interval change N.B. : The above Results were Read Back by Quentin Moura DO to RADHA Ragland, and understanding confirmed on 11/22/2021 23:32:24 (ET). Electronically Signed: Quentin Moura DO at 23:29 EDT Reading Location ID and State: [employer] / [employer] Tel [phone], Service support , Head/Neck CTA 11/22/21 23:03 IMPRESSION: 1. Absent P1 segment of the right posterior cerebral artery. [place] is otherwise unremarkable. 2. Normal bilateral carotid vertebral arteries. Electronically Signed: Quentin Moura DO at 23:50 EDT Reading Location ID and State: [employer] / [employer] Tel [phone], Service support , ADDENDUM: 11/22/21 2357 IMPRESSION: 1. Absent P1 segment of the right posterior cerebral artery. [place] is otherwise unremarkable. 2. Normal bilateral carotid vertebral arteries. N.B. : The above Results were Read Back by Quentin Moura DO to RADHA Ragland, and understanding confirmed on 11/22/2021 23:50:37 (ET). Electronically Signed: Quentin MouraDO at 23:50 EDT , Chest X-Ray 11/22/21 23:38 IMPRESSION: Normal x-ray examination of the chest. Electronically Signed: Vidalpadmini Huber DO at 0:12 EDT , Rhythm Strip Rhythm Strip: Sinus Rhythm Rate: 76 Ectopy: None EKG Initial EKG: Attestation: I personally reviewed and interpreted this EKG as follows: Interpretation: Sinus Rhythm Comments: Normal sinus rhythm at a rate of 76 Normal axis Normal intervals Normal ST segments No change prior to prior EKG on 06/16/2021 Discharge Plan Dx/Rx/DC Orders Clinical Impression: Right hemiparesis, Hyperglycemia Disposition Disposition: Acute Care [facility]
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
[2021-11-23] MEDS: Aspirin 325 MG Tablet PO (01:07)
[2021-11-23 01:22] LABS: Mucous, Urine 0 SEEN /hpf (<or=2+); Red Blood Cells-Urine 0 SEEN /hpf (0-5)
[2021-11-23 01:30] LABS: Color, Urine Straw (Yellow); Glucose, Dipstick 1000 mg/dl (Normal); Ketone-Dipstick 5 mg/dl (Negative); Leukocyte Esterase-Dipstick Negative /ul (Negative); Nitrite-Dipstick Negative (Negative); Occult Blood-Urine Negative /ul (Negative); Protein-Dipstick Negative (Negative); Urine Bilirubin Dipstick Negative (Negative); Urine Clarity Clear (Clear); Urine Urobilinogen Normal (Normal)
[2021-11-23 01:38] LABS: Bacteria 1+ /hpf (None Seen); Squamous Epithelial Cells - UA 0-5 SEEN /hpf (5-10); White Blood Cells 0-5 SEEN /hpf (0-5)
[2021-11-23 01:51] LABS: Magnesium 1.6 mg/dL (1.6-2.6)
[2021-11-23 01:54] LABS: Alcohol, Blood (Medical)-Serum < 3.0 mg/dL
[2021-11-23 01:57] LABS: Amphetamine Urine VISTA NEGATIVE (<1000 ng/mL); Barbiturate Urine VISTA NEGATIVE (< 200 ng/mL); Benzodiazepine Urine VISTA NEGATIVE (< 200 ng/mL); Cocaine Urine VISTA NEGATIVE (< 300 ng/mL); Ecstacy Urine VISTA NEGATIVE (< 500 ng/mL); Methadone Urine VISTA NEGATIVE (< 300 ng/mL); PCP Urine VISTA NEGATIVE (< 25 ng/mL); THC Urine VISTA NEGATIVE (< 50 ng/mL); Vista UDS pH Range 5
--- NOTE | 2021-11-23 02:36 | MRI_ITS ---
INDICATION: CVA/TIA EXAMINATION: MRI - MR Brain W/O Contrast TECHNIQUE: Multiplanar and multisequence MR images of the brain were obtained with gadolinium. IV Contrast Dosage and Agent: None. COMPARISON: CT of 11/22/2021, MRI examination of 08/22/2019 FINDINGS: HEMISPHERES, CEREBELLUM AND BRAINSTEM: 1. The cerebral parenchyma, ventricular system, subarachnoid spaces have unchanged configuration and density. There is a normal gyral pattern. There is normal sarabia/white differentiation. No midline shift.. 2. 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 Findings are stable. 3. The hemispheric white matter has normal appearance. 4. No areas of fluid restriction or acute ischemic change. No hemosiderin deposition or hemorrhage noted. 5. No intraparenchymal mass, hemorrhage, or acute territorial infarct. 6. The cerebellum, brainstem, basilar and suprasellar cisterns have normal appearance. No Chiari malformation. PITUITARY: Infundibulum and pituitary have normal configuration. Midline structures appear normal. CSF SPACES: Appropriate for age. No hydrocephalus. Basal cisterns are patent. VESSELS: 1. There are normal flow voids noted in the great vessels at the skull base ORBITS AND PARANASAL SINUSES: 1. Both globes, extraocular muscles, optic nerves and retrobulbar fat appear unremarkable. 2. Mild chronic-appearing ethmoid and maxillary mucosal thickening. BONY ELEMENTS: Bony elements of the cranial vault, facial skeleton and skull base have normal appearance. SCALP AND SOFT TISSUES: Normal appearance of the soft tissues of the scalp and the visualized face OTHER: None MRI/Brain without Contrast IMPRESSION: 1. Stable exam. 2. 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 Findings are stable. 3. No intraparenchymal mass, hemorrhage, or acute territorial infarct. No evidence fluid restriction, ischemic change or hemorrhage. Electronically Signed: Bryan Sol MD at 16:21 EDT ,
[2021-11-23] MEDS: 0.9% Saline Lock 10 ML Syringe IV ×2 (02:44→08:20)
[2021-11-23] MEDS: Potassium Chloride Oral Tablet 20 MEQ 40 MEQ PO (03:28)
[2021-11-23] MEDS: 0.9% Normal Saline 1,000 ML 100 ML IV (03:28)
[2021-11-23 03:36] LABS: Bedside Glucose 331 mg/dL (74-106)
[2021-11-23] MEDS: Insulin Glargine-YFGN 100 UNIT/ML Pen 55 UNIT SC (03:53)
[2021-11-23 06:26] LABS: Absolute Lymphocyte Count 0.95 X10^3/uL (0.83-4.51); Absolute Neutrophil Count 3.4 X10^3/uL (2.0-7.7); Basophil# 0.02 X10^3/uL; Basophil% 0.4 % (0-1); Eosinophil# 0.08 X10^3/uL; Eosinophils% 1.7 % (0-5); Hematocrit 42.7 % (37-47); Hemoglobin 13.9 g/dL (12.0-15.0); Lymphocyte # 0.95 X10^3/ul (0.83-4.51); Lymphocyte % 20.6 % (19-41); Mean Corp Hgb Conc 32.6 g/dL (32-36); Mean Corpuscular Hgb 26.8 pg (27.0-32.0); Mean Corpuscular Volume 82.4 fL (81-99); Mean Platelet Vol. 10.2 fl (6.2-12.0); Monocyte# 0.07 X10^3/uL; Monocyte% 1.5 % (0-10); NRBC Flagged by Analyzer 0 % (0-5); Neutrophil # 3.43 X10^3/uL (2.7-7.7); Neutrophil % 74.5 % (47-70); Platelet Count 192 K/mm3 (150-450); RBC Distribution Width CV 14.7 % (11.6-14.6); RBC Distribution Width SD 44.1 fl (35.1-43.9); Red Blood Count 5.18 M/mm3 (4.2-5.4); White Blood Count 4.6 K/mm3 (4.4-11.0)
[2021-11-23] MEDS: Insulin Lispro 100 UNIT/ML INSULN.PEN SC ×3 (06:40→16:58)
[2021-11-23 07:06] LABS: Bedside Glucose 265 mg/dL (74-106)
[2021-11-23 07:07] LABS: ALB/GLOB Ratio 0.8 RATIO (0.9-2.4); AST(SGOT) 26 U/L (15-37); Alanine Aminotransfer ALT/SGPT 51 U/L (13-56); Albumin, Serum 3.2 g/dL (3.2-5.0); Alkaline Phosphatase 111 U/L (45-117); Anion Gap 6 (5-15); BUN 24 mg/dL (7-18); Calcium,Total 8.8 mg/dL (8.5-10.1); Chloride 111 mmol/L (98-107); Cholesterol 227 mg/dL (200); EST Glomerular Filtration Rate 84 mL/min (>60); Est Glom Filt Rate - Afr Amer 102 mL/min (>60); Estimated Creatinine Clearance 87.51 ml/min; Globulin 3.9 g/dL (2.2-4.2); Glucose 297 mg/dL (74-106); High Density Lipoprotein 42 mg/dL; Potassium 4.6 mmol/L (3.5-5.1); Protein, Total 7.1 g/dL (6.4-8.2); Sodium Level 137 mmol/L (136-145); T4 Free Direct 0.72 ng/dL (0.76-1.46); Thyroid Stim Hormone (TSH) 0.94 uIU/mL (0.358-3.74); Triglycerides 139 mg/dL; Very Low Density Lipoprotein 28 mg/dL (5-40)
[2021-11-23 08:00] LABS: Hemoglobin A1c 9.6 % (3.8-5.6)
[2021-11-23] MEDS: Aspirin 81 MG TAB.CHEW PO (08:19)
[2021-11-23] MEDS: Gabapentin 400 MG Capsule 800 MG PO ×3 (08:19→17:02)
[2021-11-23] MEDS: Thyroid 15 MG Tablet PO (10:14)
[2021-11-23] MEDS: Enoxaparin 40 MG/0.4 ML Syringe SC (10:14)
[2021-11-23] MEDS: Acetaminophen 325 MG Tablet 650 MG PO (13:01)
--- NOTE | 2021-11-23 13:05 | NURSING ---
Pt's glucose checked late, as well as sliding scale insulin and gabapentin given late as pt was off the floor for MRI. Medication given when patient returned to the room.
[2021-11-23 13:21] LABS: Bedside Glucose 195 mg/dL (74-106)
--- NOTE | 2021-11-23 16:32 | PCM.DC ---
Discharge Instructions Diet Discharge Diet: 1800 Calorie Control Diet Activity Discharge Activity: - (Obtain assistance when ambulating) Weight Bearing Status: Weight bearing as tolerated Follow Up Care Test Results: Test results from this visit will be discussed in further detail at your follow-up appointment, if applicable. Discharge Plan Admission Admit Date/Time: 11/23/21 00:58 Primary Reason for Your Visit: right sided weakness Attending Provider: Brian Briggs Primary Care Provider: Jhonny Valladares Consulting Providers: Sherie Hernandez Instructions Additional Instructions / Restrictions: You will be set up for outpatient home health-call your physician if you are not contacted within 3 days Discharge Orders/Prescriptions Prescriptions: Continued thyroid (pork) [[place] Thyroid] 15 mg tablet 15 mg PO DAILY Lantus U-100 Insulin 100 unit/mL solution 68 unit subcut QHS gabapentin [Neurontin] 300 MG capsule 800 mg PO TIDCM Jardiance 25 MG tablet 25 mg PO DAILY tizanidine [Zanaflex] 4 mg tablet 4 mg PO Q8H PRN (Reason: muscle spasticity) Qty: 14 0RF insulin aspart U-100 [Novolog Flexpen U-100 Insulin] 100 unit/mL (3 mL) Insulin Pen Protocol: 5. Sliding Scale Insulin High Dosing Condition: 150-209 mg/dl = 3 units Condition: 210-259 mg/dl = 6 units Condition: 260-324 mg/dl = 9 units Condition: 325-374 mg/dl = 12 units Condition: 375-409 mg/dl = 14 units Condition: 410-449 mg/dl = 16 units Condition: Greater than 449 call physician Protocol Text: - Use for Total Daily Dose of Insulin 81-120 units - Very insulin resistant or septic patients HIGH DOSING ALGORITHM Referrals / Follow Up: Jhonny Valladares MD [Primary Care Provider] - Within 1 Week (discuss your home meds with your physician to see if you need aspirin or plavix) Disposition Disposition (needs filled in before D/C Order can be placed): Home Health Service
--- NOTE | 2021-11-23 16:43 | CASEMGMT ---
Addendum entered by Lissett Brar 11/24/21 09:32: Spoke w/Bertha @ [facility]. She states per Dr Valladares's office policy, pt will need to schedule an appt @ Dr Valladares's office to be seen prior to him approving orders for HHC to follow. LYNDA MANCERA placed call to pt and she was notified of same and encouraged to schedule appt w/him as soon as possible. She voices understanding. She denies having any other needs or concerns. She states her friend stayed w/her last night to assist her. Sonja MCKEE RN, CM Addendum entered by Lissett Brar 11/23/21 17:01: Call placed to [facility] and VM left re: referral. LYNDA MANCERA will f/u on referral tomorrow. Original Note: LYNDA MANCERA NOTE: LYNDA MANCERA notified pt is being discharged home, is declining wanting to go to a SNF, and is interested in HHC. PT/OT notes have been reviewed. LYNDA MANCERA placed call to pt's room. Pt states she wishes to return home and feels she would be safe @ home. She does live alone, but has a friend who is able to help her. 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 LYNDA MANCERA informed her of [facility] homebound requirements. Pt states she feels she would be home-bound currently and states she feels w/therapy she will be able to return to her baseline. LYNDA MANCERA informed pt HHC can not be set up on the weekend d/t their offices are closed, but RN CALDERON can assist pt w/this tomorrow. She voices understanding. Pt made aware there is a list of local HHC agencies that can be reviewed w/her so she can state preference. She states she would like [facility]. Order placed. Pt aware referral will be made to [facility] tomorrow and if they are not able to accept her, then LYNDA MANCERA will notify her to discuss other [facility] preferences. She voices understanding. Pt states she does not know if a walker would be beneficial for her at this time. She states, if once she returns home, if she feels she needs one, her parents have one that she could use. Pt denies having any further discharge planning needs or concerns. Plan: Home w/friend and family support, and [facility], pending acceptance. Sonja MILESN RN CM
--- NOTE | 2021-11-23 16:59 | DS.PCM_ITS ---
Providers Date of Admission: 11/23/21 Date of Discharge: 11/23/21 Primary Care Physician: Dr. Jhonny Valladares MD Reason For Visit: TIA Diagnosis Discharge Diagnosis (1) Right hemiparesis: Status: Acute Code(s): G81.91 - Hemiplegia, unspecified affecting right dominant side Plan 1. Right-sided weakness-etiology unclear #2 history of conversion disorder #3 uncontrolled type 2 diabetes #4 hypothyroidism Medications at Discharge Home Medications gabapentin 300 mg capsule (Neurontin) 800 mg PO TIDCM nerve pain 05/10/17 empagliflozin 25 mg tablet (Jardiance) 25 mg PO DAILY DM 08/14/18 insulin glargine 100 unit/mL subcutaneous solution (Lantus U-100 Insulin) 68 unit subcut QHS 09/13/20 thyroid (pork) 15 mg tablet ([place] Thyroid) 15 mg PO DAILY 09/13/20 tizanidine 4 mg tablet (Zanaflex) 4 mg PO Q8H PRN muscle spasticity #14 tabs 10/26/21 insulin aspart U-100 100 unit/mL (3 mL) subcutaneous pen (Novolog Flexpen U-100 Insulin aspart) 11/23/21 Hospital Course Operations None Procedures None Summary of Care Provided Minutes Spent on Discharge: 31 Hospital Course: This 41-year-old white female was seen in the emergency room at [facility] with complaints of right-sided weakness and difficulty speaking. Patient has had a history of emergency room visits for similar complaints and at one time was thought to have a conversion disorder. Stroke alert was called and patient was sent to CT, CTA of her head and neck was performed and her case was discussed with a stroke neurologist at [facility], they felt that it was most likely conversion reaction versus complex migraine, tPA was not given, patient was placed in observation status on PCU, she underwent an MRI the next day which did not show any acute abnormalities, she was also seen by [facility] therapy who recommended physical therapy in a skilled setting versus an outpatient. Patient did not want to go to a [facility] and elected to have physical therapy come to her house-this was set up by discharge planning. I talked briefly with the patient's physician (Dr. Aguilar) and he stated that the patient has a history of conversion disorder and that at one facility where the patient was hospitalized, gave her a diagnosis of a stroke but he states he cannot confirm that she ever had a stroke. Dr. Aguilar further stated that the patient has not been in to see him in the office in a year. I talked to the patient briefly before her discharge, she initially this morning told me she was on Plavix and aspirin at home but then after reviewing her list, these 2 medications were not listed and the patient could not remember whether she takes them at home. I do not feel that she needs to be placed on antiplatelet drugs for now. I asked her to follow-up with her family physician and discuss her medications. On 11/23/2021, patient was seen and examined: On examination she appeared in good health and spirits, she does not appear to be in any distress. Vital signs as documented. Skin warm and dry and without overt rashes. Neck without JVD, thyroid appears normal, trachea is midline, neck is supple. Lungs clear, normal air movement was noted. Heart exam notable for regular rhythm, normal sounds and absence of murmurs, rubs or gallops. Abdomen unremarkable and without evidence of organomegaly, masses, or abdominal aortic enlargement, bowel sounds are present in all 4 quadrants, no abdominal tenderness was noted. Extremities nonedematous, no cyanosis was noted, no clubbing was noted. Neuro: Cranial nerves II through XII are grossly intact, patient exhibited some weakness on the right side of her body but it was unknown from this examiner whether this was feigned or real., Sensation to light touch and pinprick is intact Psych: Patient is alert and oriented x3, she does not appear anxious or depressed, she does not appear agitated. Patient was discharged on 11/23/2021 in stable condition. Weight / BMI Weight Weight: 102.2 kg Body Mass Index (BMI) 36.3 ABG / Lab / Microbiology Data Result Diagrams: 11/23/21 05:54 11/23/21 05:54 Laboratory: Laboratory Results - last 24 hr 11/22/21 23:05: WBC 6.6, RBC 5.22, Hgb 14.0, Hct 43.1, MCV 82.6, MCH 26.8 L, MCHC 32.5, RDW Std Deviation 43.8, RDW Coeff of Quentin 14.7 H, Plt Count 231, MPV 10.4, Immature Gran % (Auto) 0.600, Neut % (Auto) 47.7, Lymph % (Auto) 38.6, Phelps % (Auto) 6.5, Eos % (Auto) 6.0 H, Baso % (Auto) 0.6, Absolute Neuts (auto) 3.2, Absolute Lymphs (auto) 2.56, Nucleated RBC % 0 11/22/21 23:05: PT 12.1, INR 0.9, APTT 26.3 11/22/21 23:05: Sodium 140, Potassium 3.4 L, Chloride 107, Carbon Dioxide 24.0, Anion Gap 9, BUN 23 H, Creatinine 0.89, Estim Creat Clear Calc 78.66, Est GFR (MDRD) Af Amer 91, Est GFR (MDRD) Non-Af 75, BUN/Creatinine Ratio 26.0 H, Glucose 239 H, Calcium 8.8, Troponin I High Sens 4 11/22/21 23:05: Ethyl Alcohol < 3.0 11/22/21 23:05: Magnesium 1.6 11/23/21 01:15: Urine Opiates Screen NEGATIVE, Urine Methadone Screen NEGATIVE, Ur Barbiturates Screen NEGATIVE, Ur Phencyclidine Scrn NEGATIVE, Ur Amphetamines Screen NEGATIVE, MDMA (Ecstasy) Screen NEGATIVE, U Benzodiazepines Scrn NEGATIVE, Urine Cocaine Screen NEGATIVE, U Cannabinoids Screen NEGATIVE, Ur Drug Screen Comment 11/23/21 01:15: Urine Color Straw, Urine Clarity Clear, Urine pH 6.0, Ur Specific [place] 1.010, Urine Protein Negative, Urine Glucose (UA) 1000 H, Urine Ketones 5 H, Urine Occult Blood Negative, Urine Nitrite Negative, Urine Bilirubin Negative, Urine Urobilinogen Normal, Ur Leukocyte Esterase Negative, Urine RBC 0 SEEN, Urine WBC 0-5 SEEN, Ur Squamous Epith Cells 0-5 SEEN, Urine Bacteria 1+, Urine Mucus 0 SEEN 11/23/21 03:12: POC Glucose 331 H 11/23/21 05:54: WBC 4.6, RBC 5.18, Hgb 13.9, Hct 42.7, MCV 82.4, MCH 26.8 L, MCHC 32.6, RDW Std Deviation 44.1 H, RDW Coeff of Quentin 14.7 H, Plt Count 192, MPV 10.2, Immature Gran % (Auto) 1.300 H, Neut % (Auto) 74.5 H, Lymph % (Auto) 20.6, [place]hel[place] % (Auto) 1.5, Eos % (Auto) 1.7, Baso % (Auto) 0.4, Absolute Neuts (auto) 3.4, Absolute Lymphs (auto) 0.95, Nucleated RBC % 0 11/23/21 05:54: Sodium 137, Potassium 4.6, Chloride 111 H, Carbon Dioxide 20.0 L , Anion Gap 6, BUN 24 H, Creatinine 0.80, Estim Creat Clear Calc 87.51, Est GFR (MDRD) Af Amer 102, Est GFR (MDRD) Non-Af 84, BUN/Creatinine Ratio 30.0 H, Glucose 297 H, Calcium 8.8, Total Bilirubin 0.10 L, AST 26, ALT 51, Alkaline Phosphatase 111, Total Protein 7.1, Albumin 3.2, Globulin 3.9, Albumin/Globulin Ratio 0.8 L, Triglycerides 139, Cholesterol 227 H, LDL Cholesterol 157 H, VLDL Cholesterol 28, HDL Cholesterol 42, TSH 0.94, Free T4 0.72 L 11/23/21 05:54: Hemoglobin A1c 9.6 H 11/23/21 06:39: POC Glucose 265 H 11/23/21 13:00: POC Glucose 195 H Radiography Diagnostic Testing: Radiology Impression Brain CT 11/22/21 23:02 IMPRESSION: No acute intracranial or calvarial abnormality. No major interval change N.B. : The above Results were Read Back by Quentin Moura DO to RADHA Ragland, and understanding confirmed on 11/22/2021 23:32:24 (ET). Electronically Signed: Quentin Moura DO at 23:29 EDT Reading Location ID and State: [facility] / [place] Tel [phone], Service support , ADDENDUM: 11/22/21 [id number] IMPRESSION: No acute intracranial or calvarial abnormality. No major interval change N.B. : The above Results were Read Back by Quentin Moura DO to RADHA Ragland, and understanding confirmed on 11/22/2021 23:32:24 (ET). Electronically Signed: Quentin Moura DO at 23:29 EDT Reading Location ID and State: [facility] / [place] Tel [phone], Service support , Head/Neck CTA 11/22/21 23:03 IMPRESSION: 1. Absent P1 segment of the right posterior cerebral artery. The [place] is otherwise unremarkable. 2. Normal bilateral carotid vertebral arteries. Electronically Signed: Quentin Moura DO at 23:50 EDT , ADDENDUM: 11/22/21 2357 IMPRESSION: 1. Absent P1 segment of the right posterior cerebral artery. The [place] is otherwise unremarkable. 2. Normal bilateral carotid vertebral arteries. N.B. : The above Results were Read Back by Quentin Moura DO to RADHA Ragland, and understanding confirmed on 11/22/2021 23:50:37 (ET). Electronically Signed: Quentin Moura DO at 23:50 EDT Reading Location ID and State: [facility] / [place] Tel [phone], Service support , Chest X-Ray 11/22/21 23:38 IMPRESSION: Normal x-ray examination of the chest. Electronically Signed: Vidal Huber DO at 0:12 EDT , Brain MRI 11/23/21 02:36 IMPRESSION: 1. Stable exam. 2. 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 Findings are stable. 3. No intraparenchymal mass, hemorrhage, or acute territorial infarct. No evidence fluid restriction, ischemic change or hemorrhage. Electronically Signed: Bryan Sol MD at 16:21 EDT , D/C Instructions Discharge Diet: 1800 Calorie Control Diet Weight Bearing Status: Weight bearing as tolerated Meaningful Use Info Meaningful Use Diagnoses (Choose all that apply): None applicable Discharge Plan Admission Admit Date/Time: 11/23/21 00:58 Primary Reason for Your Visit: right sided weakness Attending Provider: Brian Briggs Primary Care Provider: Jhonny Valladares Consulting Providers: Sherie Hernandez Instructions Additional Instructions / Restrictions: You will be set up for outpatient home health-call your physician if you are not contacted within 3 days Discharge Orders/Prescriptions Prescriptions: Continued thyroid (pork) [[place] Thyroid] 15 mg tablet 15 mg PO DAILY Lantus U-100 Insulin 100 unit/mL solution 68 unit subcut QHS gabapentin [Neurontin] 300 MG capsule 800 mg PO TIDCM Jardiance 25 MG tablet 25 mg PO DAILY tizanidine [Zanaflex] 4 mg tablet 4 mg PO Q8H PRN (Reason: muscle spasticity) Qty: 14 0RF insulin aspart U-100 [Novolog Flexpen U-100 Insulin] 100 unit/mL (3 mL) Insulin Pen Protocol: 5. Sliding Scale Insulin High Dosing Condition: 150-209 mg/dl = 3 units Condition: 210-259 mg/dl = 6 units Condition: 260-324 mg/dl = 9 units Condition: 325-374 mg/dl = 12 units Condition: 375-409 mg/dl = 14 units Condition: 410-449 mg/dl = 16 units Condition: Greater than 449 call physician Protocol Text: - Use for Total Daily Dose of Insulin 81-120 units - Very insulin resistant or septic patients HIGH DOSING ALGORITHM Referrals / Follow Up: Jhonny Valladares MD [Primary Care Provider] - Within 1 Week (discuss your home meds with your physician to see if you need aspirin or plavix) Disposition Disposition (needs filled in before D/C Order can be placed): Home Health Ser vice Charges/Coding Visit Charges OBSV E&M: 32796 Observ/hosp same date L3
[2021-11-23 17:20] LABS: Bedside Glucose 185 mg/dL (74-106)
--- NOTE | 2021-11-23 18:36 | NURSING ---
This RN reviewed all discharge paperwork with patient. Pt has no questions or concerns at this time. All IV's removed per hospital policy. Pt awaiting family to come transport patient home.
--- NOTE | 2021-11-23 19:45 | NURSING ---
Pt was discharged home via private vehicle at this time with belongings.
== END 2021-11-23 19:40 | disposition home health service (06) ==
LOC: ED 11-23 00:46 → PCU 11-23 01:16
PROVIDERS: Admitting Provider Family Medicine; Emergency Provider Emergency Medicine; PCP Family Medicine; Visit Provider Internal Medicine
DX: G81.91 Hemiplegia, unspecified affecting right dominant side (principal); M06.9 Rheumatoid arthritis, unspecified; E11.65 Type 2 diabetes mellitus with hyperglycemia; E11.40 Type 2 diabetes mellitus with diabetic neuropathy, unspecified; G40.909 Epilepsy, unspecified, not intractable, without status epilepticus; Z79.4 Long term (current) use of insulin; M79.7 Fibromyalgia; G89.29 Other chronic pain; E78.5 Hyperlipidemia, unspecified; I10 Essential (primary) hypertension; R47.01 Aphasia; R47.9 Unspecified speech disturbances; E03.9 Hypothyroidism, unspecified; Z79.899 Other long term (current) drug therapy; Z79.890 Hormone replacement therapy; Q28.2 Arteriovenous malformation of cerebral vessels; R29.707 NIHSS score 7; K21.9 Gastro-esophageal reflux disease without esophagitis; E66.9 Obesity, unspecified; Z68.36 Body mass index [BMI] 36.0-36.9, adult
CPT/HCPCS: 36415; 70450; 70496; 70498; 70551; 71045; 80048; 80053; 80061; 80307; 81001; 82077; 82962; 83036; 83735; 84439; 84443; 84484; 85025; 85610; 85730; 92523; 92610; 93005; 96361; 96372; 96374; 96375; 97162; 97166; 97802; 99218; 99285; J7030; Q9967; A4216; G0378

== ENCOUNTER → 2022-02-11 | Outpatient (CLI) | payer MEDICARE, MEDICAID, SELFPAY ==
[2022-02-11 10:22] LABS: Color, Urine Yellow (Yellow); Glucose, Dipstick 1000 mg/dl (Normal); Ketone-Dipstick Negative (Negative); Leukocyte Esterase-Dipstick Negative /ul (Negative); Nitrite-Dipstick Negative (Negative); Occult Blood-Urine Negative /ul (Negative); Protein-Dipstick Negative (Negative); Specific Gravity, Urine 1.015 (1.002-1.030); Urine Bilirubin Dipstick Negative (Negative); Urine Clarity Clear (Clear); Urine Urobilinogen Normal (Normal)
[2022-02-11 12:04] LABS: Chlamydia Trachomatis by PCR Negative (Negative); Neisserai gonorrhoeae by PCR Negative (Negative); Probe Check PASS; Sample Adequacy Control PASS; Specimen Processing Control PASS
[2022-02-11 12:24] LABS: HIV - WCH Non-Reactive (Nonreactive); Hepatitis B Surface Antigen Non-Reactive (Nonreactive); Hepatitis C Antibody Non-Reactive (Nonreactive); Syphilis Antibodies Non-reactive
[2022-02-12 10:27] LABS: HSV 1 IgG < 0.91 index (0.00-0.90); HSV 2 IgG > 23.60 index (0.00-0.90)
== END | disposition home or self-care (01) ==
LOC: MTLAB 08:59
PROVIDERS: Nurse Practitioner Family; PCP Family Medicine; Referring Provider Family Medicine; Visit Provider Family Medicine
DX: R10.2 Pelvic and perineal pain (principal)
CPT/HCPCS: 36415; 81002; 86695; 86696; 86703; 86780; 86803; 87086; 87088; 87340; 87491; 87591

== ENCOUNTER 2022-02-18 20:47 | Emergency (ER) | payer MEDICARE, MEDICAID, SELFPAY ==
[2022-02-18] VITALS (9 sets, daily range): BP systolic 131–158; BP diastolic 74–106; PULSE 89–112; RESP 12–18; TEMP 36.6–36.9; O2SAT 93–98; BMI 36.1
--- NOTE | 2022-02-18 20:49 | EKG12_ITS ---
Test Reason : DYSRHYTHMIA Blood Pressure : / mmHG Vent. Rate : 097 BPM Atrial Rate : 097 BPM P-R Int : 124 ms QRS Dur : 080 ms QT Int : 368 ms P-R-T Axes : 053 003 020 degrees QTc Int : 467 ms Normal sinus rhythm Normal ECG Confirmed by KHOI ELIZONDO, KE ([id number]), research editor LAURA STRAUSS ([id number]) on 02/23/2022 9:45:48 A M Referred By: QUIQUE Confirmed By:BRIDGETTE WESTFALL MD
--- NOTE | 2022-02-18 20:49 | ED.RN ---
phoned call to [facility] at this time
--- NOTE | 2022-02-18 20:49 | CT_ITS ---
We are attempting to reach an attending provider to discuss findings. An addendum with communication details will be sent when the communication is complete. EXAM: CT HEAD WITHOUT INTRAVENOUS CONTRAST CLINICAL INDICATION: Neuro deficit, acute, stroke suspected TECHNIQUE: Multiple axial images were obtained of the head without intravenous contrast. This CT exam was performed using one or more of the following dose reduction techniques: automated exposure control, adjustment of the mA and/or kV according to patient size, and/or use of iterative reconstruction technique. This report was created using [employer] report SwiftPayMD(TM) by [employer] technology. COMPARISON: 11/22/2021 FINDINGS: BRAIN AND EXTRA-AXIAL SPACES: Unremarkable. No intra- or extra-axial hemorrhage. No evidence of acute infarct. No intracranial mass or mass effect. There is preservation of the [place]/white matter interface. Posterior fossa structures are unremarkable. Ventricles are appropriate for age. No hydrocephalus. Basal cisterns are patent. BONES/JOINTS: Unremarkable. No discrete lytic or blastic abnormalities. SINUSES: There is sinus disease. MASTOID AIR CELLS: Unremarkable. Clear. ORBITS: Visualized globes, extraocular muscles, optic nerves and retrobulbar fat appear unremarkable. Aspects 10 CT/STROKE Brain/Head without Cont IMPRESSION: No acute findings in the head/brain. Electronically Signed: Toi Farmer MD at 21:00 EDT ,
--- NOTE | 2022-02-18 20:52 | CT_ITS ---
EXAM: CT ANGIOGRAPHY HEAD AND NECK WITH INTRAVENOUS CONTRAST CLINICAL INDICATION: stroke symptoms TECHNIQUE: [place]/head and neck CT angiography protocol performed with intravenous contrast. This CT exam was performed using one or more of the following dose reduction techniques: automated exposure control, adjustment of the mA and/or kV according to patient size, and/or use of iterative reconstruction technique. This report was created using [employer] report generation technology. MIP reconstructed images were created and reviewed. CONTRAST: IV 100mL [id number]-[id number] RADIATION DOSE: Total DLP: 809.16 mGy-cm. COMPARISON: Cranial CT of this date. FINDINGS: HEAD: RIGHT ANTERIOR CEREBRAL ARTERY: Unremarkable. No significant stenosis at the visualized segments. Anterior communicating artery is present. No aneurysm. RIGHT MIDDLE CEREBRAL ARTERY: Unremarkable. No significant stenosis at the visualized segments. No aneurysm. No filling defect. 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 No occlusion or significant stenosis. No aneurysm. RIGHT INTRACRANIAL INTERNAL CAROTID ARTERY: Unremarkable. No significant stenosis. No dissection or occlusion. RIGHT INTRACRANIAL VERTEBRAL ARTERY: Dominant. No significant stenosis. No dissection or occlusion. LEFT ANTERIOR CEREBRAL ARTERY: Unremarkable. No significant stenosis at the visualized segments. No aneurysm. LEFT MIDDLE CEREBRAL ARTERY: Unremarkable. No significant stenosis at the visualized segments. No aneurysm. No filling defect. LEFT POSTERIOR CEREBRAL ARTERY: Unremarkable. Arises from the basilar tip. No occlusion or significant stenosis. No aneurysm. LEFT INTRACRANIAL INTERNAL CAROTID ARTERY: Unremarkable. No significant stenosis. No dissection or occlusion. 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 BASILAR ARTERY: Unremarkable. No significant stenosis. No aneurysm. OTHER VASCULATURE: No vascular malformation. Dural venous sinuses enhance normally. NECK: RIGHT COMMON CAROTID ARTERY: Smooth calcified and noncalcified plaque along the posterior wall of the right carotid bulb and proximal ICA causes less than 50% stenosis. No significant stenosis. No dissection or occlusion. RIGHT EXTRACRANIAL INTERNAL CAROTID ARTERY: Unremarkable. No significant stenosis. No dissection or occlusion. RIGHT EXTERNAL CAROTID ARTERY: Unremarkable. No occlusion. RIGHT EXTRACRANIAL VERTEBRAL ARTERY: Dominant. No significant stenosis. No dissection or occlusion. LEFT COMMON CAROTID ARTERY: Unremarkable. No significant stenosis. No dissection or occlusion. LEFT EXTRACRANIAL INTERNAL CAROTID ARTERY: Unremarkable. No significant stenosis. No dissection or occlusion. LEFT EXTERNAL CAROTID ARTERY: Unremarkable. No occlusion. LEFT EXTRACRANIAL VERTEBRAL ARTERY: Congenitally small. No significant stenosis. No dissection or occlusion. GREAT VESSELS OF AORTIC ARCH: Unremarkable as visualized. Normal anatomy, patent. LUNG APICES: Unremarkable as visualized. HEAD and NECK: BONES/JOINTS: Unremarkable. No discrete lytic or blastic abnormalities. Cervical vertebrae demonstrate normal curvature and alignment. SOFT TISSUES: Mildly heterogeneous thyroid gland without discrete nodule. CAROTID STENOSIS REFERENCE USING NASCET CRITERIA: % ICA stenosis = (1 - narrowest ICA diameter/diameter of distal cervical ICA) x 100. Mild - <50% stenosis. Moderate - 50-69% stenosis. Severe - 70-94% stenosis. Near occlusion - 95-99% stenosis. Occluded - 100% stenosis. CT/CTA Head AND Neck W/ Contrast IMPRESSION: Smooth calcified and noncalcified plaque at the right carotid bulb and origin of the right ICA, causing less than 50% stenosis. Otherwise negative CTA neck. Negative cranial CTA. No aneurysm, intraluminal thrombus or hemodynamically significant stenosis identified. Electronically Signed: Dougie Duong MD at 22:49 EDT ,
[2022-02-18] MEDS: MethylPREDNISolone 125 MG/2 ML Vial 60 MG IV (21:10)
[2022-02-18] MEDS: DiphenhydrAMINE 50 MG/ML Syringe 25 MG IV (21:10)
--- NOTE | 2022-02-18 21:12 | ED.VIS.STROK ---
HPI <Dr. Shari Harrell MD - Last Filed: 02/18/22 23:42> History of Present Illness Chief Complaint: Stroke Alert Informant: patient and EMS Narrative Narrative: Patient brought in by EMS as a stroke alert. They report 25 minutes of symptoms with right-sided weakness and right facial droop. Patient is well-known to this emergency room with similar presentations in the past. She has received tPA twice in the past and ultimately ended up having negative work-up including normal MRI. She is also known to have conversion disorder. [facility] <Dr. Shari Harrell MD - Last Filed: 02/18/22 23:42> [facility] Medical History AVM (arteriovenous malformation) brain Entropion of left lower eyelid HLD (hyperlipidemia) HTN (hypertension) Hyperglycemia Right hemiparesis Seizure disorder Type II diabetes mellitus Home Medications gabapentin 300 mg capsule (Neurontin) 800 mg PO TIDCM nerve pain 05/10/17 [History Last Taken 08/14/18] empagliflozin 25 mg tablet (Jardiance) 25 mg PO DAILY DM 08/14/18 [History Last Taken 08/14/18] insulin glargine 100 unit/mL subcutaneous solution (Lantus U-100 Insulin) 68 unit subcut QHS 09/13/20 [History Last Taken Unknown] thyroid (pork) 15 mg tablet ([place] Thyroid) 15 mg PO DAILY 09/13/20 [History Last Taken Unknown] tizanidine 4 mg tablet (Zanaflex) 4 mg PO Q8H PRN muscle spasticity #14 tabs 10/26/21 [Rx Last Taken Unknown] insulin aspart U-100 100 unit/mL (3 mL) subcutaneous pen (Novolog Flexpen U-100 Insulin aspart) 11/23/21 [History Last Taken Unknown] Allergy/AdvReac Type Severity Reaction Status Date / Time Sulfa (Sulfonamide Allergy Intermediate Hives Verified 10/26/21 13:43 Antibiotics) Iodinated Contrast Media Allergy Mild Rash Verified 10/26/21 13:43 nortriptyline AdvReac Severe Other Verified 10/26/21 13:43 metformin AdvReac Intermediate Diarrhea Verified 10/26/21 13:43 morphine AdvReac Itching Verified 10/26/21 13:43 Family History Father GERD (gastroesophageal reflux disease) Mother Rheumatoid arthritis Surgical History History of surgery of uterus S/P cholecystectomy S/P hysterectomy Social History household members: none Smoking Status: Never smoker alcohol intake: never substance use type: does not use ROS <Dr. Shari Harrell MD - Last Filed: 02/18/22 23:42> ROS ED Constitutional Constitutional ED: Denies chills or fever(s) Eyes Eyes: Denies change in vision or discharge from eye(s) ENT ENT ED: Denies discharge from eye(s), rhinorrhea or sore throat Cardiovascular Cardiovascular: Denies chest pain or palpitations Respiratory/Chest Respiratory/Chest: Denies cough or dyspnea Gastrointestinal Gastrointestinal: Denies abdominal pain, diarrhea, nausea or vomiting Genitourinary Genitourinary ED: Denies dysuria Musculoskeletal Musculoskeletal: Denies back pain or extremity pain Integumentary Denies Abrasions or rash Neurologic Neurologic: Reports headache(s) and weakness Psychiatric Psychiatric: Denies anxiety or depression Allergic/Immunologic Allergic/Immunologic ED: Denies lip swelling or urticaria EXAM <Dr. Shari Harrell MD - Last Filed: 02/18/22 23:42> Physical Exam Const Vital Signs: 02/18/22 20:55 02/18/22 20:55 02/18/22 21:18 Temperature 98.3 F Temperature Source Temporal Pulse Rate 96 99 Respiratory Rate 13 14 Blood Pressure 149/106 H 158/101 H Blood Pressure Mean 120 120 Pulse Ox 97 96 Oxygen Delivery Method Room Air Room Air Room Air 02/18/22 21:05 02/18/22 21:30 02/18/22 20:47 Temperature 97.9 F Temperature Source Temporal Pulse Rate 112 H 96 Respiratory Rate 18 14 Blood Pressure 138/74 H 142/93 H Blood Pressure Mean 95 109 Pulse Ox 98 94 Oxygen Delivery Method Room Air Room Air 02/18/22 22:00 02/18/22 22:30 02/18/22 23:00 Temperature 98.4 F Temperature Source Temporal Pulse Rate 93 89 91 Respiratory Rate 13 14 16 Blood Pressure 143/77 H 131/97 H 137/80 H Blood Pressure Mean 99 108 99 Pulse Ox 93 94 93 Oxygen Delivery Method Room Air Room Air Room Air 02/18/22 23:29 02/18/22 23:29 02/19/22 00:00 Temperature 97.8 F Temperature Source Temporal Pulse Rate 90 91 89 Respiratory Rate 14 12 15 Blood Pressure 137/80 H 144/88 H 141/87 H Blood Pressure Mean 99 106 105 Pulse Ox 94 94 93 Oxygen Delivery Method Room Air Room Air Room Air 02/19/22 00:00 02/19/22 00:30 Temperature Temperature Source Pulse Rate 87 86 Respiratory Rate 15 12 Blood Pressure 141/87 H 134/79 H Blood Pressure Mean 105 97 Pulse Ox 93 93 Oxygen Delivery Method Room Air Room Air Positive well nourished and well developed General Appearance ED: well developed HEENT Reports normocephalic and head/scalp atraumatic Eyes PERRL and EOMs intact bilaterally Neck supple Chest Wall inspection of chest normal and palpation of chest normal Resp normal respiratory effort and clear to auscultation bilaterally Cardio regular rate and regular rhythm GI normal to inspection, nondistended, normoactive bowel sounds Palpation: soft Extremity normal to inspection Neuro Neuro Narrative: Patient initially met EMS doors. Patient resting with her eyes closed but will respond to voice. She will murmur her answers. She has a slight right facial droop that will vary when we distract her and she answers questions. She has right arm weakness, however will avoid hitting her face with hand drop test. She has right leg weakness, however is felt to be physically pushing down against my hand. Psych mental status grossly normal Skin no rashes or lesions noted <Dr. Michael Hernandez, DO - Last Filed: 02/19/22 00:57> Physical Exam Const Vital Signs: 02/18/22 20:55 02/18/22 20:55 02/18/22 21:18 Temperature 98.3 F Temperature Source Temporal Pulse Rate 96 99 Respiratory Rate 13 14 Blood Pressure 149/106 H 158/101 H Blood Pressure Mean 120 120 Pulse Ox 97 96 Oxygen Delivery Method Room Air Room Air Room Air 02/18/22 21:05 02/18/22 21:30 02/18/22 20:47 Temperature 97.9 F Temperature Source Temporal Pulse Rate 112 H 96 Respiratory Rate 18 14 Blood Pressure 138/74 H 142/93 H Blood Pressure Mean 95 109 Pulse Ox 98 94 Oxygen Delivery Method Room Air Room Air 02/18/22 22:00 02/18/22 22:30 02/18/22 23:00 Temperature 98.4 F Temperature Source Temporal Pulse Rate 93 89 91 Respiratory Rate 13 14 16 Blood Pressure 143/77 H 131/97 H 137/80 H Blood Pressure Mean 99 108 99 Pulse Ox 93 94 93 Oxygen Delivery Method Room Air Room Air Room Air 02/18/22 23:29 02/18/22 23:29 02/19/22 00:00 Temperature 97.8 F Temperature Source Temporal Pulse Rate 90 91 89 Respiratory Rate 14 12 15 Blood Pressure 137/80 H 144/88 H 141/87 H Blood Pressure Mean 99 106 105 Pulse Ox 94 94 93 Oxygen Delivery Method Room Air Room Air Room Air 02/19/22 00:00 02/19/22 00:30 Temperature Temperature Source Pulse Rate 87 86 Respiratory Rate 15 12 Blood Pressure 141/87 H 134/79 H Blood Pressure Mean 105 97 Pulse Ox 93 93 Oxygen Delivery Method Room Air Room Air MDM <Dr. Shari Harrell MD - Last Filed: 02/18/22 23:42> [facility] MDM Narrative Medical decision making narrative: Patient was sent for CT scan of the head. Stroke work-up initiated. Lab Data Attestation: I reviewed the patient's lab results. Labs: Laboratory Results - last 24 hr 02/18/22 02/18/22 02/18/22 21:01 21:01 21:01 WBC 9.2 RBC 5.65 H Hgb 15.3 H Hct 45.6 MCV 80.7 L MCH 27.1 MCHC 33.6 RDW Std Deviation 42.5 RDW Coeff of Quentin 14.6 Plt Count 282 MPV 9.9 Immature Gran % (Auto) 0.800 Neut % (Auto) 60.4 Lymph % (Auto) 26.5 [place] % (Auto) 5.3 Eos % (Auto) 6.2 H Baso % (Auto) 0.8 Absolute Neuts (auto) 5.5 Absolute Lymphs (auto) 2.43 Nucleated RBC % 0 PT 12.3 INR 1.0 APTT 25.0 Sodium 138 Potassium 3.5 Chloride 106 Carbon Dioxide 21.0 Anion Gap 11 BUN 21 H Creatinine 1.00 Estim Creat Clear Calc 70.01 Est GFR (MDRD) Af Amer 79 Est GFR (MDRD) Non-Af 65 BUN/Creatinine Ratio 21.1 H Glucose 219 H Calcium 9.6 Troponin I High Sens 4 Radiography Diagnostic Testing: Clinical Impression(s) from Imaging Studies Brain CT 02/18/22 20:49 IMPRESSION: No acute findings in the head/brain. Electronically Signed: Toi Farmer MD at 21:00 EDT , ADDENDUM: 02/18/222120 IMPRESSION: No acute findings in the head/brain. N.B. : The above Results were Read Back by Toi Farmer MD to , AA, and understanding confirmed on 02/18/2022 21:14:20 (ET). Electronically Signed: Toi Farmer MD at 21:00 EDT , Head/Neck CTA 02/18/22 20:52 IMPRESSION: Smooth calcified and noncalcified plaque at the right carotid bulb and origin of the right ICA, causing less than 50% stenosis. Otherwise negative CTA neck. Negative cranial CTA. No aneurysm, intraluminal thrombus or hemodynamically significant stenosis identified. Electronically Signed: Dougie Doung MD at 22:49 EDT , Chest X-Ray 02/18/22 22:10 IMPRESSION: No significant interval change or acute process. Electronically Signed: Dougie Duong MD at 22:32 EDT , EKG Initial EKG: Attestation: I personally reviewed and interpreted this EKG as follows: Interpretation: Sinus Rhythm (Sinus at 97 with no acute ischemia.) Treatment and Re-Evaluation Narrative: CT scan of the head is unremarkable. Neurologist from [facility] evaluated the patient. I spoke with him on the phone. We agreed not to give the patient tPA as she has had multiple presentations with the same symptoms and no evidence of stroke. Patient appears to manipulate her exam. CBC and chemistry studies are unremarkable other than hemoglobin concentrated at 15.3. EKG is unremarkable. Chest x-ray per my interpretation reveals no acute findings. Patient was premedicated for contrast and CTA of the head and neck obtained. This reveals less than 50% stenosis of the right carotid. On repeat evaluation patient continues to have right arm weakness, however continues to avoid her face on hand drop test. She continues to have right leg weakness but is felt to be physically pushing down against my hand. Because the patient does have headache at this time she is given Toradol and Reglan. She been given Benadryl earlier. If this does not improve her headache and symptoms, she will likely need to be admitted for further evaluation. This be set up to oncoming physician. I already spoke with the hospitalist as well. <Dr. Michael Hernandez, DO - Last Filed: 02/19/22 00:57> [facility] Lab Data Labs: Laboratory Results - last 24 hr 02/18/22 02/18/22 02/18/22 21:01 21:01 21:01 WBC 9.2 RBC 5.65 H Hgb 15.3 H Hct 45.6 MCV 80.7 L MCH 27.1 MCHC 33.6 RDW Std Deviation 42.5 RDW Coeff of Quentin 14.6 Plt Count 282 MPV 9.9 Immature Gran % (Auto) 0.800 Neut % (Auto) 60.4 Lymph % (Auto) 26.5 [place] % (Auto) 5.3 Eos % (Auto) 6.2 H Baso % (Auto) 0.8 Absolute Neuts (auto) 5.5 Absolute Lymphs (auto) 2.43 Nucleated RBC % 0 PT 12.3 INR 1.0 APTT 25.0 Sodium 138 Potassium 3.5 Chloride 106 Carbon Dioxide 21.0 Anion Gap 11 BUN 21 H Creatinine 1.00 Estim Creat Clear Calc 70.01 Est GFR (MDRD) Af Amer 79 Est GFR (MDRD) Non-Af 65 BUN/Creatinine Ratio 21.1 H Glucose 219 H Calcium 9.6 Troponin I High Sens 4 Radiography Diagnostic Testing: Clinical Impression(s) from Imaging Studies Brain CT 02/18/22 20:49 IMPRESSION: No acute findings in the head/brain. Electronically Signed: Toi Farmer MD at 21:00 EDT , ADDENDUM: 02/18/222120 IMPRESSION: No acute findings in the head/brain. N.B. : The above Results were Read Back by Toi Farmer MD to , AA, and understanding confirmed on 02/18/2022 21:14:20 (ET). Electronically Signed: Toi Farmer MD at 21:00 EDT , Head/Neck CTA 02/18/22 20:52 IMPRESSION: Smooth calcified and noncalcified plaque at the right carotid bulb and origin of the right ICA, causing less than 50% stenosis. Otherwise negative CTA neck. Negative cranial CTA. No aneurysm, intraluminal thrombus or hemodynamically significant stenosis identified. Electronically Signed: Dougie Duong MD at 22:49 EDT , Chest X-Ray 02/18/22 22:10 IMPRESSION: No significant interval change or acute process. Electronically Signed: Dougie Duong MD at 22:32 EDT , Treatment and Re-Evaluation Narrative: CT scan of the head is unremarkable. Neurologist from [facility] evaluated the patient. I spoke with him on the phone. We agreed not to give the patient tPA as she has had multiple presentations with the same symptoms and no evidence of stroke. Patient appears to manipulate her exam. CBC and chemistry studies are unremarkable other than hemoglobin concentrated at 15.3. EKG is unremarkable. Chest x-ray per my interpretation reveals no acute findings. Patient was premedicated for contrast and CTA of the head and neck obtained. This reveals less than 50% stenosis of the right carotid. On repeat evaluation patient continues to have right arm weakness, however continues to avoid her face on hand drop test. She continues to have right leg weakness but is felt to be physically pushing down against my hand. Because the patient does have headache at this time she is given Toradol and Reglan. She been given Benadryl earlier. If this does not improve her headache and symptoms, she will likely need to be admitted for further evaluation. This be set up to oncoming physician. I already spoke with the hospitalist as well. Patient was signed out to me while awaiting response to medication. On reevaluation she reports there has been moderate improvement of her headache with the medication given. The weakness of her right arm and leg has improved as well. She was able to stand and ambulate with a steady gait. Therefore at this time with the patient having improvement of symptoms with time as well as improvement of the headache this is most consistent with an atypical migraine and not acute stroke. Therefore I do not feel there is need for admission as patient is having improvement of symptoms and is able to ambulate on her own. Patient will be discharged at this time and can follow-up on an outpatient basis Discharge Plan Triage Chief Complaint: Stroke Alert ED Provider: Shari Harrell Dx/Rx/DC Orders Clinical Impression: Migraine, Weakness Instructions: Migraine Stages Tx, Migraine Triggers Prescriptions: No Action thyroid (pork) [[place] Thyroid] 15 mg tablet 15 mg PO DAILY Lantus U-100 Insulin 100 unit/mL solution 68 unit subcut QHS gabapentin [Neurontin] 300 MG capsule 800 mg PO TIDCM Jardiance 25 MG tablet 25 mg PO DAILY tizanidine [Zanaflex] 4 mg tablet 4 mg PO Q8H PRN (Reason: muscle spasticity) Qty: 14 0RF insulin aspart U-100 [Novolog Flexpen U-100 Insulin] 100 unit/mL (3 mL) Insulin Pen Protocol: 5. Sliding Scale Insulin High Dosing Condition: 150-209 mg/dl = 3 units Condition: 210-259 mg/dl = 6 units Condition: 260-324 mg/dl = 9 units Condition: 325-374 mg/dl = 12 units Condition: 375-409 mg/dl = 14 units Condition: 410-449 mg/dl = 16 units Condition: Greater than 449 call physician Protocol Text: - Use for Total Daily Dose of Insulin 81-120 units - Very insulin resistant or septic patients HIGH DOSING ALGORITHM Primary Care Provider: Jhonny Valladares Referrals: Jhonny Valladares MD [Primary Care Provider] - Disposition Disposition: Home, Self Care
[2022-02-18 21:23] LABS: Absolute Lymphocyte Count 2.43 X10^3/uL (0.83-4.51); Absolute Neutrophil Count 5.5 X10^3/uL (2.0-7.7); Basophil# 0.07 X10^3/uL; Basophil% 0.8 % (0-1); Eosinophil# 0.57 X10^3/uL; Eosinophils% 6.2 % (0-5); Hematocrit 45.6 % (37-47); Hemoglobin 15.3 g/dL (12.0-15.0); Lymphocyte # 2.43 X10^3/ul (0.83-4.51); Lymphocyte % 26.5 % (19-41); Mean Corp Hgb Conc 33.6 g/dL (32-36); Mean Corpuscular Hgb 27.1 pg (27.0-32.0); Mean Corpuscular Volume 80.7 fL (81-99); Mean Platelet Vol. 9.9 fl (6.2-12.0); Monocyte# 0.49 X10^3/uL; Monocyte% 5.3 % (0-10); NRBC Flagged by Analyzer 0 % (0-5); Neutrophil # 5.53 X10^3/uL (2.7-7.7); Neutrophil % 60.4 % (47-70); Platelet Count 282 K/mm3 (150-450); RBC Distribution Width CV 14.6 % (11.6-14.6); RBC Distribution Width SD 42.5 fl (35.1-43.9); Red Blood Count 5.65 M/mm3 (4.2-5.4); White Blood Count 9.2 K/mm3 (4.4-11.0)
[2022-02-18 21:30] LABS: Prothrombin Time (Protime)PT. 12.3 SECONDS (11.7-14.9)
[2022-02-18 21:41] LABS: Anion Gap 11 (5-15); BUN 21 mg/dL (7-18); BUN/Creat Ratio 21.1 RATIO (10-20); Calcium,Total 9.6 mg/dL (8.5-10.1); Chloride 106 mmol/L (98-107); EST Glomerular Filtration Rate 65 mL/min (>60); Est Glom Filt Rate - Afr Amer 79 mL/min (>60); Estimated Creatinine Clearance 70.01 ml/min; Glucose 219 mg/dL (74-106); Potassium 3.5 mmol/L (3.5-5.1); Sodium Level 138 mmol/L (136-145); Troponin-I HS 4 pg/mL (3.0-54.0)
--- NOTE | 2022-02-18 22:10 | RAD_ITS ---
EXAM: XR CHEST, 1 VIEW CLINICAL INDICATION: Neuro deficit, acute, stroke suspected TECHNIQUE: Frontal view of the chest. This report was created using [employer] report generation technology. COMPARISON: Previous chest radiographs of 11/22/2021 and 04/30/2021. FINDINGS: LUNGS AND PLEURAL SPACES: Chronic right basilar discoid atelectasis or scarring. No acute pulmonary infiltrates or pleural effusions. No pneumothorax. HEART: Unremarkable. Cardiac silhouette not enlarged. Normal pulmonary vasculature. MEDIASTINUM: Thoracic aorta remains mildly elongated. BONES/JOINTS: No acute osseous abnormality. SOFT TISSUES: Unremarkable. TUBES, LINES AND DEVICES: Rounded electronic device again projected over the right lung base. RAD/Chest 1 View IMPRESSION: No significant interval change or acute process. Electronically Signed: Dougie Duong MD at 22:32 EDT ,
[2022-02-18] MEDS: Metoclopramide 10 MG/2 ML Vial IV (23:24)
[2022-02-18] MEDS: Ketorolac 30 MG/ML Syringe IV (23:26)
[2022-02-19] VITALS: BP 141/87; PULSE 87; PULSE 89; RESP 15; O2SAT 93
[2022-02-19 00:30] VITALS: BP 134/79; PULSE 86; RESP 12; O2SAT 93
[2022-02-19 01:31] VITALS: BP 134/79; PULSE 86; RESP 12; O2SAT 93
== END 2022-02-19 01:31 | disposition home or self-care (01) ==
PROVIDERS: Emergency Provider Emergency Medicine; PCP Family Medicine; Visit Provider Emergency Medicine
DX: G43.909 Migraine, unspecified, not intractable, without status migrainosus (principal); E11.9 Type 2 diabetes mellitus without complications; R53.1 Weakness; E78.5 Hyperlipidemia, unspecified; R29.810 Facial weakness; I10 Essential (primary) hypertension
CPT/HCPCS: 70450; 70496; 70498; 71045; 80048; 84484; 85025; 85610; 85730; 93005; 99285; Q9967; A4216

== ENCOUNTER 2022-02-24 14:11 | Day surgery (SDC) | payer MEDICARE, MEDICAID, SELFPAY ==
[2022-02-24] VITALS (7 sets, daily range): BP systolic 116–132; BP diastolic 74–88; PULSE 71–83; RESP 16; TEMP 36.8–37.4; O2SAT 95–98; BMI 36.1
[2022-02-24] MEDS: Lactated Ringers 1,000 ML 15 ML IV (15:03)
--- NOTE | 2022-02-24 15:30 | EGD_PTH ---
PATIENT: DELMY POLLACK LOC: [facility] U#:[id number] AGE/SX: 41/F ROOM: RE02/24/[address]: Dr. Pranav Landa DO : 1980 BED: DIS: 02/24/2022 SPEC #: [id number] RECD: 02/24/22 16:55 STATUS: NAJMA REModesta #: [id number] DARLIN: 02/24/22 15:[address]: Pranav Landa DEPT: SURGICAL PATHOLOGY RECD BY: Anna Prado ENTERED: 02/25/22 07:20 SP TYPE: EGD BIOPSY MINO DR: Dr. hJonny Valladares MD Tissues: A - Duodenum, NOS B - Esophagus, NOS Procedures: Special Stain Group II Surgery Specimen Level IV Alcian Blue/PAS (control) HEADER OPERATION: EGD with biopsies (MAC) PRE-OP DIAGNOSIS: Diarrhea TISSUE SUBMITTED: A ? Duodenum biopsy, B ? Distal esophagus biopsy MICROSCOPIC DIAGNOSIS A. Duodenum, biopsy: Fragments of duodenal mucosa, no pathologic diagnosis. B. Distal esophagus, biopsy: Fragments of gastric mucosa with chronic inflammation. Intestinal metaplasia (goblet cell metaplasia) not identified. See comment. LISA:corbin 02/26/2022 COMMENT B. Alcian blue/PAS stain with matched control is used in the evaluation of the specimen. MICROSCOPIC DESCRIPTION Slides are reviewed. GROSS DESCRIPTION A - Received in fixative is one container labeled with the patient's name and designated duodenum biopsy. The specimen consists of multiple irregular fragments of light everett soft tissue that in aggregate measure 0.5 x 0.5 x 0.1 cm. The specimen is totally submitted in one cassette. B - Received in fixative is one container labeled with the patient's name and designated distal esophagus. The specimen consists of two irregular fragments of light everett soft tissue that in aggregate measure 0.9 x 0.3 x 0.1 cm. The specimen is totally submitted in one cassette. / LISA:corbin 02/25/2022 TC:3 CPT: 95523 x2, 67076
--- NOTE | 2022-02-24 16:01 | PCM.HP.BLA ---
History and Physical Date of Admission: 02/24/22 KEARA CALABRESE, is a 42 F who presents to the office today for 3 month f/u chronic nausea, epigastric pain/bloating/hardness, postprandial diarrhea. Labs were done at her initial visit revealing the following abnormalities--10/27/2021 labs: ESR 36, CRP 15, hemoglobin A1c 5.7, ferritin 265, AST 149, ALT 211, LDH 268, CK 632, gastrin 244, immunofixation screen--presence of monoclonal protein unclear at this time, suggest repeat in 3 to 6 months. Stool tests weren't done. Gastric emptying study was normal. Liver elastography revealed mild to moderate fibrosis. Her insurance wouldn't allow CT, but now has different insurance. Stomach gets hard and bloated. Diarrhea few times a day, some cramping. Stool is never formed, varies from soft to watery. Has diarrhea as soon as she eats. Has nausea daily, wakes up with it, occas takes promethazine which helps. Rare vomiting, uses to vomit daily. Pantoprazole 20 mg at night, occas takes in AM too, started 4 mos ago, miracle, helped with epigastric pain and bloat. But upper abd still gets hard, painful, bloated; about 5 days per week since she started PPI. No causes or pattern she can discern. Spits up acid some times. No heartburn. Has an autoimmune myositis disorder, specifics unknown. Chronically elevated CPK. Muscle pains x couple of years, takes cyclobenzaprine prn. Saw one slag expander, was told no f/u since didn't have RA. Son has been diagnosed with UC and Crohn's; he is on Stelara; diagnosed with IBD age 18. He also has RA since age 3. [place] established with this clinic 10.27.21 with referral from PCP for evaluation of GERD, nausea and epigastric pain/cramping. For the last 25 years she has been having issues with emesis, bloating and upper/mid abdomen discomfort that has worsened in the last ten years to include distention with a hard feeling. Stools are generally soft and watery and occur 6-7 times or once a day. Previously established with gastroenterology who diagnosed collagenous colitis. CT abd/pel 8.12.26 finding fatty liver; cholecystectomy; umbilical hernia containing fat; diverticula without diverticulosis 11/05/21 NM/Gastric Emptying Study IMPRESSION: Approximately 30% gastric emptying at 60 minutes which is within the range of normal. 12/01/21 US/Abdomen Limited IMPRESSION: Hepatomegaly and fatty infiltration of the liver. Liver measures 18.7 cm 12/01/21 US/Elastography Parenchyma/Organ IMPRESSION: Liver stiffness measures 6 kPa compatible with F2-F3 (Mild to moderate liver fibrosis) Metavir score. ROS Const Constitutional: Positive for fatigue and weakness ENT ENT: No difficulty swallowing Gastro GI: Positive for bloating, diarrhea, heartburn, excessive flatus and nausea/dyspepsia; No abdominal pain, belching, change in bowel habits, change in stool character, coffee ground emesis, constipation, cramping, difficulty swallowing, feeling full early, incontinent of stools, Vomiting blood/hematemesis, Blood in stool, loose stools, Black,tarry stools, pain with swallowing, vomiting or other Musc Musculoskeletal: Positive for joint pain, back pain, muscle cramps, numbness, stiffness, tingling, Arthritis and sciatica Skin Skin: No yellowing of the eye or itchy eyes Neuro Neurology: Positive for weakness, numbness and tingling Psych Psychiatric: No anxiety and No depression Endo Endocrine: Positive for fatigue Aller/Imm Allergy/Immunologic: No itchy eyes [place]/Lymp Hematologic/Lymphatic: No easy bleeding or easy bruising Exam Const General: cooperative and comfortable Nutritional Appearance: obese Orientation: alert, awake and oriented x3 HENMT Head: normal to inspection Eyes General: appearance normal, both eyes and all related structures Resp Effort & Inspection: normal respiratory effort Quality Reporting Tobacco Screening ([facility] 138) Smoking Status: Former smoker Assessment and Plan Assessment and Plan (1) Abdominal pain: ?Status:?Acute ?Plan: 42 yr old female with chronic nausea, epigastric pain/bloat, diarrhea/dumping. Some relief with PPI. Normal gastric emptying study. We reviewed her results so far. Start treatment for NAFLD with vitamin E and ursodiol, repeat elastography in 6 mos. Schedule EGD and colonoscopy, f/u 2 wks after. DDx includes gastritis, PUD, IBD, microscopic colitis. (2) NAFLD (nonalcoholic fatty liver disease): ?Status:?Acute ?Plan: as above (3) Myositis: ?Status:?Acute ?Plan: Will refer to Rheumatology (4) Diarrhea: ?Status:?Acute ?Plan: as above ? ? ? Orders: Orders Abdomen/Pelvis WITH Contrast Today K76.0 - Fatty (change of) liver, not elsewhere classified, M60.9 - Myositis, unspecified, R10.9 - Unspecified abdominal pain ? Referrals Rheumatology ? M60.9 - Myositis, unspecified ? Medications: New vitamin E (dl, acetate) 180 mg? PO BID 180 caps 1RF ? ? ursodiol 250 mg? PO BID 180 tabs 1RF NAFLD ? ? I have re-examined the patient. There are no clinical changes since date of exam.
--- NOTE | 2022-02-24 16:21 | OP.EGD_ITS ---
Patient Name: Yanni Buchanan Procedure Date: 02/24/2022 3:57 PM Date of : 1980 Age: 41 Procedure: Upper GI endoscopy Indications: Epigastric abdominal pain, Functional Dyspepsia, Suspected esophageal reflux Providers: Pranav Landa DO Referring MD: Jhonny Valladares Medicines: Monitored Anesthesia Care Patient Profile: This is a 41 year old female. Refer to note in patient chart for documentation of history and physical. Patient has symptoms of chronic epigastric abdominal pain and chronic nausea. Complications: No immediate complications. Procedure: Pre-Anesthesia Assessment: - Prior to the procedure, a History and Physical was performed, and patient medications and allergies were reviewed. The patient is competent. The risks and benefits of the procedure and the sedation options and risks were discussed with the patient. All questions were answered and informed consent was obtained. Patient identification and proposed procedure were verified by the physician in the pre-procedure area. Mental Status Examination: alert and oriented. Airway Examination: normal oropharyngeal airway and neck mobility. Respiratory Examination: clear to auscultation. CV Examination: normal. Prophylactic Antibiotics: The patient does not require prophylactic antibiotics. Prior Anticoagulants: The patient has taken no previous anticoagulant or antiplatelet agents. ASA Grade Assessment: II - A patient with mild systemic disease. After reviewing the risks and benefits, the patient was deemed in satisfactory condition to undergo the procedure. The anesthesia plan was to use monitored anesthesia care (MAC). Immediately prior to administration of medications, the patient was re-assessed for adequacy to receive sedatives. The heart rate, respiratory rate, oxygen saturations, blood pressure, adequacy of pulmonary ventilation, and response to care were monitored throughout the procedure. The physical status of the patient was re-assessed after the procedure. After obtaining informed consent, the endoscope was passed under direct vision. Throughout the procedure, the patient's blood pressure, pulse, and oxygen saturations were monitored continuously. The Endoscope was introduced through the mouth, and advanced to the second part of duodenum. The upper GI endoscopy was accomplished without difficulty. The patient tolerated the procedure well. Scope In: 4:12:51 PM Scope Out: 4:16:20 PM Total Procedure Duration Time 0 hours 3 minutes 29 seconds Findings: The Z-line was irregular and was found 39 cm from the incisors. Biopsies were taken with a cold forceps for histology. Verification of patient identification for the specimen was done. Estimated blood loss was minimal. A small hiatal hernia was present. No other significant abnormalities were identified in a careful examination of the stomach. Patchy mildly erythematous mucosa without active bleeding and with no stigmata of bleeding was found in the second portion of the duodenum. Biopsies were taken with a cold forceps for histology. Estimated blood loss: none. Impression: - Z-line irregular, 39 cm from the incisors. Biopsied. - Small hiatal hernia. - Erythematous duodenopathy. Biopsied. Recommendation: - Discharge patient to home. - Resume previous diet. - Continue present medications. - Await pathology results. Procedure Code(s): --- Professional --- 24527, Esophagogastroduodenoscopy, flexible, transoral; with biopsy, single or multiple CPT copyright 2017 [employer]. All rights reserved. The codes documented in this report are preliminary and upon pulmonary function technician review may be revised to meet current compliance requirements. Pranav Landa DO 02/24/2022 4:20:40 PM This report has been signed electronically. Number of Addenda: 0 Note Initiated On: 02/24/2022 3:57 PM
--- NOTE | 2022-02-24 16:22 | OP.CCLET_ITS ---
02/24/2022 Jhonny Valladares [address] [place] [address] Re : Upper GI endoscopy procedure for Yanni Buchanan Dear Dr. Valladares This procedure was performed on Thursday, February 24, 2022. My impressions and recommendations are as follows: Impressions : - Z-line irregular, 39 cm from the incisors. Biopsied. - Small hiatal hernia. - Erythematous duodenopathy. Biopsied. Recommendations : - Discharge patient to home. - Resume previous diet. - Continue present medications. - Await pathology results. My findings are described in the full procedure note, which is enclosed. If I can be of further assistance, please feel free to contact me at . Sincerely, Pranav Landa, 02/24/2022 4:20:40 PM This report has been signed electronically.
== END 2022-02-24 17:00 | disposition home or self-care (01) ==
LOC: EN 14:11 → AC 14:14
PROVIDERS: PCP Family Medicine; Referring Provider Family Medicine; Visit Provider Internal Medicine Gastroenterology
PROC: 0DJ08ZZ Inspection of Upper Intestinal Tract, Via Natural or Artificial Opening Endoscopic (ICD-10-PCS; CPT 43235; principal; 2022-02-24 15:25)
DX: R10.9 Unspecified abdominal pain (principal); K44.9 Diaphragmatic hernia without obstruction or gangrene; Z87.891 Personal history of nicotine dependence; R19.7 Diarrhea, unspecified; M60.9 Myositis, unspecified; K76.0 Fatty (change of) liver, not elsewhere classified
CPT/HCPCS: 43239; 88305; 88313; J7120

== ENCOUNTER → 2022-03-09 | Outpatient (CLI) | payer MEDICARE, MEDICAID, SELFPAY ==
--- NOTE | 2022-03-09 11:42 | NM_ITS ---
CLINICAL: 41-year-old female with history of clinical gastroparesis, postprandial nausea. SEMI-SOLID PHASE 99m Tc SULFUR COLLOID GASTRIC EMPTYING STUDY COMPARISON: None available FINDINGS: The patient was administered 1.1 mCi of 99m Tc sulfur colloid mixed with oatmeal and consumed per os. Image acquisitions in the anterior-posterior projections were obtained for 60 minutes. There is prompt visualization of the stomach. There is no gastroesophageal reflux identified. The T ? emptying was calculated to be 48.16 minutes, (Normal: 12-56 minutes). NM/Gastric Emptying Study IMPRESSION: 1. NORMAL 99m Tc sulfur colloid semi-solid phase (oatmeal) gastric emptying imaging examination. A. There is normal and preserved semi-solid phase gastric emptying compared to normal controls. (Jonathan et al, J Nucl Med Tech 38: 186, 2010). Electronically Signed: Bryan Bhat, at 21:30 EDT ,
== END | disposition home or self-care (01) ==
LOC: NM 11:41
PROVIDERS: PCP Family Medicine; Referring Provider Internal Medicine Gastroenterology; Visit Provider Internal Medicine Gastroenterology
DX: K31.84 Gastroparesis (principal)
CPT/HCPCS: 78264; A9541

== ENCOUNTER → 2022-03-19 | Outpatient (CLI) | payer MEDICARE, MEDICAID, SELFPAY ==
[2022-03-19 12:06] LABS: Microalbumin,Random Urine 7.7 mg/L (NO RANGE EST.); Microalbumin:Creatinine Ratio 29.9 mg/g CRE (<30 mg/g CRE)
[2022-03-19 13:16] LABS: Cholesterol 238 mg/dL (200); High Density Lipoprotein 46 mg/dL; Thyroid Stim Hormone (TSH) 1.26 uIU/mL (0.358-3.74); Triglycerides 450 mg/dL
== END | disposition home or self-care (01) ==
LOC: LAB 10:44
PROVIDERS: PCP Family Medicine; Referring Provider Nurse Practitioner Family; Visit Provider Nurse Practitioner Family
DX: M62.81 Muscle weakness (generalized) (principal); E11.9 Type 2 diabetes mellitus without complications
CPT/HCPCS: 36415; 80061; 82043; 82570; 84443

== ENCOUNTER → 2022-05-28 | Outpatient (CLI) | payer MEDICARE, MEDICAID, SELFPAY ==
[2022-05-28 15:36] LABS: Absolute Lymphocyte Count 2.45 X10^3/uL (0.83-4.51); Absolute Neutrophil Count 4.6 X10^3/uL (2.0-7.7); Basophil# 0.07 X10^3/uL; Basophil% 0.9 % (0-1); Eosinophil# 0.48 X10^3/uL; Eosinophils% 5.8 % (0-5); Hemoglobin 14.3 g/dL (12.0-15.0); Lymphocyte # 2.45 X10^3/ul (0.83-4.51); Lymphocyte % 29.8 % (19-41); Mean Corp Hgb Conc 31.8 g/dL (32-36); Mean Corpuscular Hgb 26.7 pg (27.0-32.0); Mean Platelet Vol. 9.9 fl (6.2-12.0); Monocyte# 0.53 X10^3/uL; Monocyte% 6.5 % (0-10); NRBC Flagged by Analyzer 0 % (0-5); Platelet Count 263 K/mm3 (150-450); RBC Distribution Width CV 14.6 % (11.6-14.6); RBC Distribution Width SD 44.3 fl (35.1-43.9); Red Blood Count 5.36 M/mm3 (4.2-5.4); White Blood Count 8.2 K/mm3 (4.4-11.0)
[2022-05-28 16:46] LABS: Vitamin D,25 Hydroxy 10.6 ng/mL
[2022-05-28 16:54] LABS: AST(SGOT) 54 U/L (15-37); Alanine Aminotransfer ALT/SGPT 79 U/L (13-56); Albumin, Serum 3.7 g/dL (3.2-5.0); Alkaline Phosphatase 135 U/L (45-117); Anion Gap 9 (5-15); BUN 16 mg/dL (7-18); BUN/Creat Ratio 22.7 RATIO (10-20); Calcium,Total 9.3 mg/dL (8.5-10.1); Chloride 104 mmol/L (98-107); Cholesterol 247 mg/dL (200); EST Glomerular Filtration Rate 97 mL/min (>60); Est Glom Filt Rate - Afr Amer 118 mL/min (>60); Globulin 3.6 g/dL (2.2-4.2); Glucose 86 mg/dL (74-106); High Density Lipoprotein 52 mg/dL; Potassium 4.2 mmol/L (3.5-5.1); Protein, Total 7.3 g/dL (6.4-8.2); Sodium Level 139 mmol/L (136-145); Triglycerides 246 mg/dL; Very Low Density Lipoprotein 49 mg/dL (5-40)
== END | disposition home or self-care (01) ==
LOC: MFPLAB 14:10
PROVIDERS: PCP Family Medicine; Visit Provider Family Medicine
DX: E11.69 Type 2 diabetes mellitus with other specified complication (principal); E55.9 Vitamin D deficiency, unspecified
CPT/HCPCS: 36415; 80053; 80061; 82306; 85025

== ENCOUNTER 2022-07-15 01:33 | Observation (INO) | payer MEDICARE, MEDICAID, SELFPAY ==
[2022-07-15] VITALS (16 sets, daily range): BP systolic 111–183; BP diastolic 74–110; PULSE 74–91; RESP 15–20; TEMP 36.3–37.2; O2SAT 96–100; BMI 38.7; BMI 37.5
--- NOTE | 2022-07-15 01:37 | CT_ITS ---
EXAM: CT brain without contrast HISTORY: Neuro deficit, acute, stroke suspected, left-sided symptoms TECHNIQUE: CT Head Stroke Protocol W/O Contrast Injection A radiation dose optimization technique was used for this scan. COMPARISON: MRI brain 11/23/[address] brain 02/18/2022 LIMITATIONS: None. BRAIN: Normal sarabia/white matter differentiation. Partial agenesis of the corpus callosum, similar compared to the prior. VENTRICLES: No hydrocephalus. EXTRA-AXIAL SPACES: No hemorrhages, fluid collections, or masses. CALVARIUM/SKULL BASE: Normal. FACE/SINUSES: Visualized portions normal. SOFT TISSUES: Normal. OTHER: None. CT/STROKE Brain/Head without Cont IMPRESSION: No intracranial hemorrhage or acute territorial infarction. Findings discussed with Dr. Michael Hernandez via phone at 10:53 PM PST on 07/14/2022. N.B. : The above Results were Read Back by Luigi Armstrong MD to RADHA Quijano, and understanding confirmed on 07/15/2022 01:54:14 (ET). Electronically Signed: Luigi Armstrong MD at 1:55 EST ,
--- NOTE | 2022-07-15 01:37 | RAD_ITS ---
INDICATION: Neuro deficit, acute, stroke suspected EXAMINATION/TECHNIQUE: X-RAY - XR Chest 1 View COMPARISON: 02/18/2022 FINDINGS: LINES/DEVICES: None. LUNGS: No consolidation, edema or effusion. No pneumothorax. MEDIASTINUM AND CARDIOVASCULAR STRUCTURES: Cardiac silhouette not enlarged. Central airways and mediastinal contour are unremarkable. BONES AND SOFT TISSUES: Unremarkable. RAD/Chest 1 View IMPRESSION: No acute cardiopulmonary disease. Electronically Signed: Luigi Armstrong MD at 2:46 EST ,
--- NOTE | 2022-07-15 01:37 | EKG12_ITS ---
Test Reason : STROKE Blood Pressure : / mmHG Vent. Rate : 082 BPM Atrial Rate : 082 BPM P-R Int : 134 ms QRS Dur : 082 ms QT Int : 390 ms P-R-T Axes : 067 -02 039 degrees QTc Int : 455 ms Normal sinus rhythm Low voltage QRS Confirmed by CESAR ELIZONDO, BRET ([id number]), avid editor LAURA STRAUSS ([id number]) on 07/16/2022 8:56:04 AM Referred By: KYRA Confirmed By:BRET GUERRERO MD
--- NOTE | 2022-07-15 01:38 | CT_ITS ---
EXAM: CTA Head and Neck W/ Contrast Injection (and W/O Contrast Images if performed) HISTORY: Neuro deficit, acute, stroke suspected TECHNIQUE: CTA Head and Neck W/ Contrast Injection (and W/O Contrast Images if performed) Postcontrast axial images were obtained of the brain and neck. NASCET criteria using the distal ICAs for comparison were used for evaluation of stenoses. 3D reconstructions were reviewed. A radiation dose optimization technique was used for this scan. COMPARISON: CTA brain and neck 02/18/2022 LIMITATIONS: None. CAROTID ARTERIES: Normal. ANTERIOR CEREBRAL ARTERIES: Normal. MIDDLE CEREBRAL ARTERIES: Normal. POSTERIOR CEREBRAL ARTERIES: origin of the right NEUROSURGEON, similar compared to the prior. BASILAR ARTERY: Normal. VERTEBRAL ARTERIES: Diminutive left vertebral artery terminates in the left PICA, similar compared to the prior. VENOUS STRUCTURES: Normal. OTHER: None. AORTIC ARCH: Normal. CAROTID ARTERIES: Normal. VERTEBRAL ARTERIES: Normal. OTHER ARTERIES: Normal. VENOUS STRUCTURES: Normal. BONES/SOFT TISSUES: Normal. OTHER: None. CT/STROKE CTA Head AND Neck W/Con IMPRESSION: No flow-limiting stenosis, aneurysm or dissection in the head and neck. Findings discussed with Dr Michael Hernandez via phone at 11:20 PM PST on 07/14/2022. N.B. : The above Results were Read Back by Luigi Armstrong MD to Dr Michael Hernandez DO, and understanding confirmed on 07/15/2022 02:21:42 (ET). Electronically Signed: Luigi Armstrong MD at 2:23 EST ,
[2022-07-15 01:48] LABS: Absolute Lymphocyte Count 2.74 X10^3/uL (0.83-4.51); Absolute Neutrophil Count 4.1 X10^3/uL (2.0-7.7); Basophil# 0.07 X10^3/uL; Basophil% 0.9 % (0-1); Eosinophil# 0.39 X10^3/uL; Hematocrit 47.3 % (37-47); Hemoglobin 15.5 g/dL (12.0-15.0); Lymphocyte # 2.74 X10^3/ul (0.83-4.51); Lymphocyte % 34.9 % (19-41); Mean Corp Hgb Conc 32.8 g/dL (32-36); Mean Corpuscular Hgb 27.6 pg (27.0-32.0); Mean Corpuscular Volume 84.3 fL (81-99); Mean Platelet Vol. 9.6 fl (6.2-12.0); Monocyte# 0.53 X10^3/uL; Monocyte% 6.7 % (0-10); NRBC Flagged by Analyzer 0 % (0-5); Neutrophil # 4.06 X10^3/uL (2.7-7.7); Neutrophil % 51.6 % (47-70); Platelet Count 263 K/mm3 (150-450); RBC Distribution Width CV 14.4 % (11.6-14.6); Red Blood Count 5.61 M/mm3 (4.2-5.4); White Blood Count 7.9 K/mm3 (4.4-11.0)
[2022-07-15 01:58] LABS: Partial Thromboplast Time 27.3 Seconds (24.1-36.2); Prothrombin Time (Protime)PT. 12.9 SECONDS (11.7-14.9)
[2022-07-15 02:03] LABS: Anion Gap 7 (5-15); BUN 6 mg/dL (7-18); BUN/Creat Ratio 6.2 RATIO (10-20); Calcium,Total 9.1 mg/dL (8.5-10.1); Chloride 104 mmol/L (98-107); Creatinine, Serum 0.97 mg/dL (0.55-1.02); EST Glomerular Filtration Rate 67 mL/min (>60); Est Glom Filt Rate - Afr Amer 82 mL/min (>60); Estimated Creatinine Clearance 72.17 ml/min; Glucose 165 mg/dL (74-106); Magnesium 1.8 mg/dL (1.6-2.6); Potassium 3.8 mmol/L (3.5-5.1); Sodium Level 138 mmol/L (136-145)
[2022-07-15 02:40] LABS: Internal QC Validated? YES +Cl - CLEAR BKGD; Pregnancy, Serum, hCG Quali. NEGATIVE Negative
[2022-07-15 02:42] LABS: Alcohol, Blood (Medical)-Serum < 3.0 mg/dL
[2022-07-15 03:09] LABS: Mucous, Urine 0 SEEN /hpf (<or=2+)
[2022-07-15 03:11] LABS: Color, Urine Yellow (Yellow); Glucose, Dipstick Normal (Normal); Ketone-Dipstick Negative (Negative); Leukocyte Esterase-Dipstick Negative /ul (Negative); Nitrite-Dipstick Negative (Negative); Occult Blood-Urine Negative /ul (Negative); Protein-Dipstick Negative (Negative); Urine Bilirubin Dipstick Negative (Negative); Urine Clarity Clear (Clear); Urine Urobilinogen Normal (Normal)
--- NOTE | 2022-07-15 03:15 | PCM.HP.STD ---
HPI - General General Date of Admission: 07/15/22 Date of Service: 07/15/22 Chief Complaint: R sided hemiplegia, R sided facial droop. HPI Narrative The patient is a 41 y/o F w/ PMHx: Hx Brain AVM, GERD w/ Hx GI Bleed, Obesity, HTN, HLD, Seizure disorder (Epilepsy), Diabetes mellitus type II with neuropathy, Hx serial TIAs although from records/neurology evaluation felt secondary to complex migraine versus conversion w/ most recent evaluation 11/23/21 for recurrent R sided weakness, facial droop and aphasia with evaluation at that time more concerning for conversion with unremarkable MRI brain and eventual discharge, Hx Hepatitis A, Chronic back pain/Rheumatoid Arthritis/Fibromyalgia, Chronic Dysphagia/Gastroparesis following with Dr. Landa with planned EGD/GET from review of 06/18/22 records who presents to the [facility] ED on 07/15/22 with history of again recurrent right sided hemiplegia with also reported again right facial droop noted with concurrent mild generalized headache with last known normal per her approximate midnight when she got up to use the restroom and at that time had felt fine prompting EMS call and transition to the ED for evaluation. ED initial NIH stroke scale evaluation noted to be 6 for right-sided hemiplegia with no ongoing facial droop noted. Work-up in the ED included T97.6, heart rate 74, BP 150/90, respiratory rate 15, 99% on room air, CBC with WC 7.9, hemoglobin 15.5, platelet 263 without marked shift, unremarkable coags, BMP with glucose 165 otherwise not marked appearing, magnesium 1.8, serum negative, ethyl alcohol <3.0, urinalysis unremarkable, chest x-ray with no acute cardiopulmonary findings, CT head with no acute intracranial hemorrhage or acute territorial infarct, CTA head and neck with no acute evidence of flow-limiting stenosis, aneurysm or dissection the head and neck, EKG with SR without acute evidence of ischemia. Given presentation ED did initiate stroke alert with [facility] neurology evaluation with deferral of tenecteplase given history of reported prior AVM and given 3 similar episodes with no stroke on MRI suspected stroke mimic. [facility] Medical History (Updated 07/15/22 @ 04:[address] Sherie Hernandez MD) Acne Anxiety AVM (arteriovenous malformation) brain Back pain Cardiology follow-up encounter Depression Dietary restriction Difficulty swallowing Epilepsy Fatty liver Fibromyalgia Gastroparesis Hepatitis History of echocardiogram History of hiatal hernia History of IBS HTN (hypertension) Insulin dependent diabetes mellitus Marijuana use Restless legs Rheumatoid arthritis Seizure disorder Thyroid disease TIA (transient ischemic attack) Wears glasses Home Medications gabapentin 300 mg capsule (Neurontin) 800 mg PO TIDCM nerve pain 05/10/17 [History Last Taken 02/24/22 10:00] aspirin 81 mg tablet,delayed release 81 mg PO DAILY 02/20/22 [History Last Taken Unknown] clopidogrel 75 mg tablet (Plavix) 75 mg PO DAILY 02/20/22 [History Last Taken Unknown] ezetimibe 10 mg tablet (Zetia) 10 mg PO DAILY #90 tabs 03/19/22 [Rx Last Taken Unknown] Humalog KwikPen Insulin 100 unit/mL subcutaneous (insulin lispro) See Rx Instructions subcut TID #24 mL 05/12/22 [Rx Last Taken Unknown] insulin glargine 100 unit/mL (3 mL) subcutaneous pen (Lantus Solostar U-100 Insulin) 60 unit (0.6 mL) subcut DAILY #18 mL 05/12/22 [Rx Last Taken Unknown] baclofen 5 mg tablet 5 mg PO QHS #30 tabs 06/18/22 [Rx Last Taken Unknown] Mounjaro 5 mg/0.5 mL subcutaneous pen injector (tirzepatide) 5 mg (0.5 mL) subcut QWEEK #6 mL 07/13/22 [Rx Last Taken Unknown] Allergy/AdvReac Type Severity Reaction Status Date / Time Sulfa (Sulfonamide Allergy Intermediate Hives Verified 07/15/22 02:14 Antibiotics) Iodinated Contrast Media Allergy Mild Rash Verified 07/15/22 02:14 nortriptyline AdvReac Severe Other Verified 07/15/22 02:14 metformin AdvReac Intermediate Diarrhea Verified 07/15/22 02:14 morphine AdvReac Itching Verified 07/15/22 02:14 Family History Father GERD (gastroesophageal reflux disease) Mother Rheumatoid arthritis Other Anxiety Arthritis Autoimmune disorder Surgical History History of esophagogastroduodenoscopy (EGD) History of surgery of uterus Hx of appendectomy S/P cholecystectomy S/P hysterectomy Social History household members: none Smoking Status: Never smoker alcohol intake: current alcohol intake frequency: holidays/special occasions only substance use type: does not use what type of physical activity do you participate in: walking frequency: 3-4 times per week ROS ROS Narrative Admission Review of Systems: CONSTITUTIONAL: No weight loss, fever, chills, + weakness or fatigue. HEENT: Eyes: No visual loss, blurred vision, double vision or yellow sclerae. Ears, Nose, Throat: No hearing loss, sneezing, congestion, runny nose or sore throat. SKIN: No rash or itching, lesions, wounds. CARDIOVASCULAR: No chest pain, chest pressure or chest discomfort, palpitations, edema, orthopnea, syncopal events. RESPIRATORY: No shortness of breath, cough or sputum, wheezing, hemoptysis. GASTROINTESTINAL: No anorexia, nausea, vomiting or diarrhea, abdominal pain, melena, BRBPR. GENITOURINARY: No dysuria, frequency, urgency or retention. NEUROLOGICAL: + Right sided weakness, paresthesias, facial droop, headache, No dizziness, syncope, change in bowel or bladder control, seizure. MUSCULOSKELETAL: + muscle, back pain, joint pain or stiffness. HEMATOLOGIC: No anemia, bleeding or bruising. LYMPHATICS: No enlarged nodes. No history of splenectomy. PSYCHIATRIC: + history of depression or anxiety. ENDOCRINOLOGIC: No reports of sweating, cold or heat intolerance. No polyuria or polydipsia. ALLERGIES: + history of hives. Vital Signs Vital Signs Vital Signs: 07/15/22 01:34 07/15/22 01:37 07/15/22 01:37 Temperature 97.4 F L 97.6 F L Temperature Source Temporal Temporal Pulse Rate 91 74 Respiratory Rate 15 15 Blood Pressure 148/88 H 150/90 H Blood Pressure Mean 108 110 Pulse Ox 99 99 Oxygen Delivery Method Room Air Room Air Room Air 07/15/22 02:07 07/15/22 02:14 Temperature 99 F 98.7 F Temperature Source Temporal Temporal Pulse Rate 79 83 Respiratory Rate 17 18 Blood Pressure 152/92 H 165/110 H Blood Pressure Mean 112 128 Pulse Ox 100 98 Oxygen Delivery Method Room Air Room Air Weight Weight: 240 lb 1.334 oz Body Mass Index (BMI) 38.7 Physical Exam Narrative Physical Examination: General: awake, alert, oriented x 3 and cooperative, seated upright in the ED bed, fatigued but in no apparent distress. Skin: normal color, turgor, no icterus, cyanosis except occasional abrasion/scratch, notably on the face. HEENT: AT/NC, EOMI, PERRLA, MMM, no carotid bruits or JVD noted, poor dentition care. Lungs: CTA bilaterally, moderate effort, mild decrease BL bases, no rales, ronchi or wheezing. Heart: Regular rate and rhythm; no gallop, rub audible. Abdomen: soft, obese, NTTP, ND, distant normal BS, no HSM. Extremities: no cyanosis, clubbing, or edema. Neurological: patient awake, alert, oriented as noted; cognitive function baseline intact; pupils equally reactive to light and accomodation; cranial nerves II-XII grossly normal, no evidence of facial droop, ongoing right-sided weakness however with BL evaluation of upper and lower extremities patient with resistance noted, when focused unable to perform FTN/HTS R sided, L appropriate, witnessed during evaluation ability to pull the sheet up to cover herself with both hands. Psychiatric: affect appears fatigued, no acute evidence of depressive or anxiety feelings. Results Lab / Micro Data Result Diagrams: 07/15/22 01:43 07/15/22 01:43 Labs: Laboratory Results - last 24 hr 07/15/22 01:43: PT 12.9, INR 1.0, APTT 27.3 07/15/22 01:43: WBC 7.9, RBC 5.61 H, Hgb 15.5 H, Hct 47.3 H, MCV 84.3, MCH 27.6, MCHC 32.8, RDW Std Deviation 44.0 H, RDW Coeff of Quentin 14.4, Plt Count 263, MPV 9.6, Immature Gran % (Auto) 0.900, Neut % (Auto) 51.6, Lymph % (Auto) 34.9, [place] % (Auto) 6.7, Eos % (Auto) 5.0, Baso % (Auto) 0.9, Absolute Neuts (auto) 4.1, Absolute Lymphs (auto) 2.74, Nucleated RBC % 0 07/15/22 01:43: Sodium 138, Potassium 3.8, Chloride 104, Carbon Dioxide 27.0, Anion Gap 7, BUN 6 L, Creatinine 0.97, Estim Creat Clear Calc 72.17, Est GFR (MDRD) Af Amer 82, Est GFR (MDRD) Non-Af 67, BUN/Creatinine Ratio 6.2 L, Glucose 165 H, Calcium 9.1, Magnesium 1.8 07/15/22 01:59: Ethyl Alcohol < 3.0 07/15/22 01:59: Serum , Qual NEGATIVE 07/15/22 03:05: Urine Color Yellow, Urine Clarity Clear, Urine pH 7.0, Ur Specific Mccoy 1.010, Urine Protein Negative, Urine Glucose (UA) Normal, Urine Ketones Negative, Urine Occult Blood Negative, Urine Nitrite Negative, Urine Bilirubin Negative, Urine Urobilinogen Normal, Ur Leukocyte Esterase Negative Radiology Impression Brain CT 07/15/22 01:37 IMPRESSION: No intracranial hemorrhage or acute territorial infarction. Findings discussed with Dr. Michael Hernandez via phone at 10:53 PM PST on 07/14/2022. N.B. : The above Results were Read Back by Luigi Armstrong MD to RADHA Quijano, and understanding confirmed on 07/15/2022 01:54:14 (ET). Electronically Signed: Luigi Armstrong MD at 1:55 EST , Chest X-Ray 07/15/22 01:37 IMPRESSION: No acute cardiopulmonary disease. Electronically Signed: Luigi Armstrong MD at 2:46 EST , Head/Neck CTA 07/15/22 01:38 IMPRESSION: No flow-limiting stenosis, aneurysm or dissection in the head and neck. Findings discussed with Dr Michael Hernandez via phone at 11:20 PM PST on 07/14/2022. N.B. : The above Results were Read Back by Luigi Armstrong MD to Dr Michael Hernandez DO, and understanding confirmed on 07/15/2022 02:21:42 (ET). Electronically Signed: Luigi Armstrong MD at 2:23 EST , ADDENDUM: 07/15/22 0230 IMPRESSION: No flow-limiting stenosis, aneurysm or dissection in the head and neck. Findings discussed with Dr Michael Hernandez via phone at 11:20 PM PST on 07/14/2022. N.B. : The above Results were Read Back by Luigi Armstrong MD to Dr Michael Hernandez DO, and understanding confirmed on 07/15/2022 02:21:42 (ET). Electronically Signed: Luigi Armstrong MD at 2:23 EST , Assessment & Plan Assessment/Plan (1) TIA (transient ischemic attack): PLAN: Plan The patient is a 41 y/o F w/ PMHx: Hx Brain AVM, GERD w/ Hx GI Bleed, Obesity, HTN, HLD, Seizure disorder (Epilepsy), Diabetes mellitus type II with neuropathy, Hx serial TIAs although from records/neurology evaluation felt secondary to complex migraine versus conversion w/ most recent evaluation 11/23/21 for recurrent R sided weakness, facial droop and aphasia with evaluation at that time more concerning for conversion with unremarkable MRI brain and eventual discharge, Hx Hepatitis A, Chronic back pain/Rheumatoid Arthritis/Fibromyalgia, Chronic Dysphagia/Gastroparesis following with Dr. Landa with planned EGD/GET from review of 06/18/22 records who presents to the [facility] ED on 07/15/22 with history of again recurrent right sided hemiplegia with also reported again right facial droop noted with concurrent mild generalized headache with last known normal per her approximate midnight when she got up to use the restroom and at that time had felt fine prompting EMS call and transition to the ED for evaluation. #1. Right-sided hemiparesis, aphasia w/ Hx prior similar presentations concerning primarily for complex migraine versus conversion versus malingering: Patient with serial prior admissions, tPA in the past several times, deferred given possible history of AVMs although from records does not appear that it is present on prior imaging, will admit to PCU, maintain on monitor, will defer repeat ECHO, will obtain MRI brain only, continue neurochecks until MRI obtained and if unremarkable imaging and resolution would plan discharge to home. UDS, EtOH pending. #2. Diabetes mellitus type II with neuropathy, uncontrolled: Last endocrinology visit noted 03/19/[address] Bonilla with HgbA1c 8.2% with medication adjustments at that time with increased Humalog 10 unit 3 times daily centimeters, Lantus 50 unit once daily, inititiate of Mounjaro and hold on Jardiance with planned urine assessment for microalbuminuria and if notable then would add SURINDER inhibitor with follow-up plan 3 months however she has yet to have a visit since, will continue home insulin regimen, ADA diet, accu checks w/ ISS, hemoglobin A1c pending. #3. ? History of cerebral AVM: MRI brain 11/23/21 with partial agenesis was closed with incomplete formation posterior body and splenium, no intraparenchymal mass, hemorrhage or acute territorial infarct, no evidence of fluid restriction, ischemic change or hemorrhage and no evidence of cerebral AVM. #4. Hypertension: Patient never continues hypertensive regimen initiated, currently again not on regimen, BP elevated above goal, given presentation will maintain permissive HTN with PRN agents per stroke protocol; however would again start regimen once appropriate if BP not at goal. #5. Hyperlipidemia: Patient never continues the high dose statin initiated, noted at most recent endocrinology visit start on zetia, add high dose statin pending #1 further evaluation, FLP in AM. #6. Epilepsy/seizure disorder: Patient previously been Topamax, now on high-dose gabapentin. #7. Obesity: Weight loss and lifestyle changes encouraged, nutrition consulted. #8. Hypothyroidism: From 03/19/22 Endocrinology visit patient had stopped taking her levothyroxine for several months, planned TSH check at that time with resumption if elevated, 03/19/22 TSH normal range 1.26, will repeat TSH and FT4, continue thyroid (pork) regimen. #9. DVT prophylaxis: Lovenox. #10. CODE STATUS: Full code. Admission Evaluation Time spent evaluating chart, patient history, patient evaluation, care planning and discussion with specialists: 76 minutes. Charges/Coding Visit Charges Inpatient E&M: 05563 Init Hosp L3
[2022-07-15 03:16] LABS: Bacteria 1+ /hpf (None Seen); Red Blood Cells-Urine 0-5 SEEN /hpf (0-5); Squamous Epithelial Cells - UA 0-5 SEEN /hpf (5-10); White Blood Cells 0-5 SEEN /hpf (0-5)
--- NOTE | 2022-07-15 03:24 | EX.ED.DYSGE1 ---
HPI History of Present Illness Chief Complaint: Neuro S/Sx Narrative Narrative: Patient is a 41-year-old female with past medical history of diabetes hypothyroidism hyperlipidemia and previous TIA. She states that she woke around midnight and then felt a sudden onset sharp pain around the right side of her head and then noticed after this that she had right arm weakness as well as right leg weakness. She states she has had a history of TIA in the past and was concerned for a possible stroke secondary to her symptoms and therefore EMS was called. EMS states when they arrived the patient was awake and alert but had right-sided weakness and with this brought the patient to the hospital for possible stroke evaluation. They do state her blood sugar was normal upon arrival [facility] Medical History (Updated 07/15/22 @ 07:[address] Michael Hernandez, ) Acne Anxiety AVM (arteriovenous malformation) brain Back pain Cardiology follow-up encounter Depression Dietary restriction Difficulty swallowing Epilepsy Fatty liver Fibromyalgia Gastroparesis Hepatitis History of echocardiogram History of hiatal hernia History of IBS HTN (hypertension) Insulin dependent diabetes mellitus Marijuana use Restless legs Rheumatoid arthritis Seizure disorder Thyroid disease TIA (transient ischemic attack) Wears glasses Home Medications gabapentin 300 mg capsule (Neurontin) 800 mg PO TIDCM nerve pain 05/10/17 [History Last Taken 02/24/22 10:00] aspirin 81 mg tablet,delayed release 81 mg PO DAILY 02/20/22 [History Last Taken Unknown] clopidogrel 75 mg tablet (Plavix) 75 mg PO DAILY 02/20/22 [History Last Taken Unknown] ezetimibe 10 mg tablet (Zetia) 10 mg PO DAILY #90 tabs 03/19/22 [Rx Last Taken Unknown] Humalog KwikPen Insulin 100 unit/mL subcutaneous (insulin lispro) See Rx Instructions subcut TID #24 mL 05/12/22 [Rx Last Taken Unknown] insulin glargine 100 unit/mL (3 mL) subcutaneous pen (Lantus Solostar U-100 Insulin) 60 unit (0.6 mL) subcut DAILY #18 mL 05/12/22 [Rx Last Taken Unknown] baclofen 5 mg tablet 5 mg PO QHS #30 tabs 06/18/22 [Rx Last Taken Unknown] Mounjaro 5 mg/0.5 mL subcutaneous pen injector (tirzepatide) 5 mg (0.5 mL) subcut QWEEK #6 mL 07/13/22 [Rx Last Taken Unknown] Allergy/AdvReac Type Severity Reaction Status Date / Time Sulfa (Sulfonamide Allergy Intermediate Hives Verified 07/15/22 02:14 Antibiotics) Iodinated Contrast Media Allergy Mild Rash Verified 07/15/22 02:14 nortriptyline AdvReac Severe Other Verified 07/15/22 02:14 metformin AdvReac Intermediate Diarrhea Verified 07/15/22 02:14 morphine AdvReac Itching Verified 07/15/22 02:14 Family History Father GERD (gastroesophageal reflux disease) Mother Rheumatoid arthritis Other Anxiety Arthritis Autoimmune disorder Surgical History History of esophagogastroduodenoscopy (EGD) History of surgery of uterus Hx of appendectomy S/P cholecystectomy S/P hysterectomy Social History household members: none Smoking Status: Never smoker alcohol intake: current alcohol intake frequency: holidays/special occasions only substance use type: does not use what type of physical activity do you participate in: walking frequency: 3-4 times per week ROS ROS ED Constitutional Constitutional ED: Denies chills or fever(s) Eyes Eyes: Denies change in vision ENT ENT ED: Denies sore throat Cardiovascular Cardiovascular: Denies chest pain or palpitations Respiratory/Chest Respiratory/Chest: Denies cough or dyspnea Gastrointestinal Gastrointestinal: Denies abdominal pain, diarrhea, nausea or vomiting Genitourinary Genitourinary ED: Denies dysuria Musculoskeletal Musculoskeletal: Denies myalgias Integumentary Denies rash Neurologic Neurologic: Reports headache(s) and weakness Hematologic/Lymphatic Hematologic/Lymphatic: Reports easy bleeding and easy bruising EXAM Physical Exam Const Vital Signs: 07/15/22 01:34 07/15/22 01:37 07/15/22 01:37 Temperature 97.4 F L 97.6 F L Temperature Source Temporal Temporal Pulse Rate 91 74 Respiratory Rate 15 15 Blood Pressure 148/88 H 150/90 H Blood Pressure Mean 108 110 Pulse Ox 99 99 Oxygen Delivery Method Room Air Room Air Room Air 07/15/22 02:07 07/15/22 02:14 03/08/23 02:30 Temperature 99 F 98.7 F Temperature Source Temporal Temporal Pulse Rate 79 83 Respiratory Rate 17 18 Blood Pressure 152/92 H 165/110 H Blood Pressure Mean 112 128 Pulse Ox 100 98 99 Oxygen Delivery Method Room Air Room Air Room Air 07/15/22 03:00 07/15/22 03:25 07/15/22 03:27 Temperature 98 F 98.4 F Temperature Source Temporal Temporal Pulse Rate 74 88 74 Respiratory Rate 15 15 15 Blood Pressure 183/77 H 129/86 H 129/86 H Blood Pressure Mean 112 100 100 Pulse Ox 99 99 99 Oxygen Delivery Method Room Air Room Air Room Air Positive well nourished, well developed and obese General Appearance ED: well developed Nutritional Appearance: obese HEENT Reports moist mucous membranes Eyes PERRL and EOMs intact bilaterally Neck supple Neck Narrative: No nuchal rigidity or meningeal signs noted Resp normal respiratory effort and clear to auscultation bilaterally Cardio regular rate and regular rhythm Rate: other Other Details: Radial pulses are +2-4 bilaterally are equal and symmetric GI normal to inspection, nondistended, normoactive bowel sounds, non-tender, non-distended and no masses GI Narrative: No voluntary guarding or rigidity no pulsatile mass Auscultation: normoactive bowel sounds Palpation: soft Extremity normal to inspection Extremity Narrative: No bony deformity or joint effusion Neuro oriented x3 Neuro Narrative: Patient has GCS of 15. She received an NIH stroke scale score of 7. She received a secondary to right arm and right leg weakness both graded a a score of 3. She receives one-point for right-sided facial droop as well. Sensorium / Orientation: alert Psych Psych Narrative: Patient has a flat affect Skin no rashes or lesions noted MDM MDM MDM Narrative Medical decision making narrative: Patient presented to the ER awake and alert protecting her airway. However she had right arm and right leg weakness as well as right-sided facial droop concerning for acute CVA. As she reported a sharp stabbing headache prior to the symptoms beginning there is concern she has had a hemorrhagic stroke or this could be also secondary to a atypical migraine. As patient is within the stroke window as her last known well was approximately midnight a stroke alert was activated. The patient had a noncontrast and CTA of the head and neck obtained. This revealed no acute bleed or significant stenosis or large vessel occlusion. The patient was evaluated by the telemetry neurologist. We were able to go over the patient's history and she has had this happen multiple times in the past with the exact same symptoms and normal CT CTAs and MRIs. She does have an incidental small AVM that was found at one of her visits where she was transferred to [facility] because of potential stroke. The neurologist and I both agree that as patient had the symptoms before with work-up showing no signs of acute stroke and she has a history of an AVM that the risk for spontaneous bleeding if tenecteplase was given is too high as the most likely cause of her symptoms are related to stress reaction/conversion disorder or atypical migraine. Therefore the patient be kept at this facility so she can undergo a MRI in the morning and complete the stroke work-up. It is noted that the patient's had mild spontaneous improvement of symptoms by the time she was admitted. History & Record Review Discussion w/independent historian: EMS personnel and Patient Lab Data Attestation: I reviewed the patient's lab results. Labs: Laboratory Results - last 24 hr 07/15/22 07/15/22 07/15/22 01:43 01:43 01:43 WBC 7.9 RBC 5.61 H Hgb 15.5 H Hct 47.3 H MCV 84.3 MCH 27.6 MCHC 32.8 RDW Std Deviation 44.0 H RDW Coeff of Quentin 14.4 Plt Count 263 MPV 9.6 Immature Gran % (Auto) 0.900 Neut % (Auto) 51.6 Lymph % (Auto) 34.9 [place] % (Auto) 6.7 Eos % (Auto) 5.0 Baso % (Auto) 0.9 Absolute Neuts (auto) 4.1 Absolute Lymphs (auto) 2.74 Nucleated RBC % 0 PT 12.9 INR 1.0 APTT 27.3 Sodium 138 Potassium 3.8 Chloride 104 Carbon Dioxide 27.0 Anion Gap 7 BUN 6 L Creatinine 0.97 Estim Creat Clear Calc 72.17 Est GFR (MDRD) Af Amer 82 Est GFR (MDRD) Non-Af 67 BUN/Creatinine Ratio 6.2 L Glucose 165 H Calcium 9.1 Magnesium 1.8 Serum , Qual Urine Color Urine Clarity Urine pH Ur Specific [place] Urine Protein Urine Glucose (UA) Urine Ketones Urine Occult Blood Urine Nitrite Urine Bilirubin Urine Urobilinogen Ur Leukocyte Esterase Urine RBC Urine WBC Ur Squamous Epith Cells Urine Bacteria Urine Mucus Ethyl Alcohol 07/15/22 07/15/22 07/15/22 01:43 01:59 01:59 WBC RBC Hgb Hct MCV MCH MCHC RDW Std Deviation RDW Coeff of Quentin Plt Count MPV Immature Gran % (Auto) Neut % (Auto) Lymph % (Auto) [place] % (Auto) Eos % (Auto) Baso % (Auto) Absolute Neuts (auto) Absolute Lymphs (auto) Nucleated RBC % PT INR APTT Sodium Potassium Chloride Carbon Dioxide Anion Gap BUN Creatinine Estim Creat Clear Calc Est GFR (MDRD) Af Amer Est GFR (MDRD) Non-Af BUN/Creatinine Ratio Glucose Calcium Magnesium 1.9 Serum , Qual NEGATIVE Urine Color Urine Clarity Urine pH Ur Specific [place] Urine Protein Urine Glucose (UA) Urine Ketones Urine Occult Blood Urine Nitrite Urine Bilirubin Urine Urobilinogen Ur Leukocyte Esterase Urine RBC Urine WBC Ur Squamous Epith Cells Urine Bacteria Urine Mucus Ethyl Alcohol < 3.0 07/15/22 03:05 WBC RBC Hgb Hct MCV MCH MCHC RDW Std Deviation RDW Coeff of Quentin Plt Count MPV Immature Gran % (Auto) Neut % (Auto) Lymph % (Auto) [place] % (Auto) Eos % (Auto) Baso % (Auto) Absolute Neuts (auto) Absolute Lymphs (auto) Nucleated RBC % PT INR APTT Sodium Potassium Chloride Carbon Dioxide Anion Gap BUN Creatinine Estim Creat Clear Calc Est GFR (MDRD) Af Amer Est GFR (MDRD) Non-Af BUN/Creatinine Ratio Glucose Calcium Magnesium Serum , Qual Urine Color Yellow Urine Clarity Clear Urine pH 7.0 Ur Specific [place] 1.010 Urine Protein Negative Urine Glucose (UA) Normal Urine Ketones Negative Urine Occult Blood Negative Urine Nitrite Negative Urine Bilirubin Negative Urine Urobilinogen Normal Ur Leukocyte Esterase Negative Urine RBC 0-5 SEEN Urine WBC 0-5 SEEN Ur Squamous Epith Cells 0-5 SEEN Urine Bacteria 1+ Urine Mucus 0 SEEN Ethyl Alcohol Radiography Diagnostic Testing: Clinical Impression(s) from Imaging Studies Brain CT 07/15/22 01:37 IMPRESSION: No intracranial hemorrhage or acute territorial infarction. Findings discussed with Dr. Michael Hernandez via phone at 10:53 PM PST on 07/14/2022. N.B. : The above Results were Read Back by Luigi Armstrong MD to RADHA Quijano, and understanding confirmed on 07/15/2022 01:54:14 (ET). Electronically Signed: Luigi Armstrong MD at 1:55 EST , Chest X-Ray 07/15/22 01:37 IMPRESSION: No acute cardiopulmonary disease. Electronically Signed: Luigi Armstrong MD at 2:46 EST , Head/Neck CTA 07/15/22 01:38 IMPRESSION: No flow-limiting stenosis, aneurysm or dissection in the head and neck. Findings discussed with Dr Michael Hernandze via phone at 11:20 PM PST on 07/14/2022. N.B. : The above Results were Read Back by Luigi Armstrong MD to Dr Michael Hernandez DO, and understanding confirmed on 07/15/2022 02:21:42 (ET). Electronically Signed: Luigi Armstrong MD at 2:23 EST , ADDENDUM: 07/15/22 0230 IMPRESSION: No flow-limiting stenosis, aneurysm or dissection in the head and neck. Findings discussed with Dr Michael Hernandez via phone at 11:20 PM PST on 07/14/2022. N.B. : The above Results were Read Back by Luigi Armstrong MD to Dr iMchael Hernandez DO, and understanding confirmed on 07/15/2022 02:21:42 (ET). Electronically Signed: Luigi Armstrong MD at 2:23 EST , Chest x-ray as interpreted by the emergency medicine physician reveals no acute infiltrate pneumothorax or pleural effusion Management Discussion w/another healthcare provider: Senior Analyst and Radiologist Discharge Plan Dx/Rx/DC Orders Clinical Impression: TIA (transient ischemic attack), Diabetes, HLD (hyperlipidemia) Disposition Disposition: Acute Care [facility] [place] Discharge Date/Time: 07/15/22 04:13
[2022-07-15 03:52] LABS: Magnesium 1.9 mg/dL (1.6-2.6)
--- NOTE | 2022-07-15 04:26 | MRI_ITS ---
STUDY: MRI BRAIN WITHOUT CONTRAST REASON FOR EXAM: Female, 41 years old. CVA TECHNIQUE: Standardized multiplanar fat and water weighted pulse sequences were obtained. COMPARISON: CT head 07/15/2022. . BRAIN AND EXTRA-AXIAL SPACES: No intracranial mass, mass effect, or midline shift. No hemorrhage, territorial infarct or acute ischemia. Partial agenesis of the corpus callosum. White matter is otherwise unremarkable. Good sarabia-white differentiation. Ventricles are normal in size. Basal cisterns are unremarkable. SELLA: Pituitary gland is normal in height. AUDITORY SYSTEM: Unremarkable. BONES/JOINTS: Unremarkable. SINUSES: Mild mucosal thickening in the maxillary sinuses. MASTOID AIR CELLS: Unremarkable as visualized. Clear. ORBITS: Unremarkable as visualized. VASCULATURE: Normal flow voids in the major intracranial circulation. MRI/Brain without Contrast IMPRESSION: 1. No acute findings. 2. Partial agenesis of the corpus callosum. 3. Mild chronic sinusitis. Electronically Signed: Kimmie Welch MD at 16:32 EST Reading Location ID and State: [id number] / Tel , Service support ,
[2022-07-15] MEDS: Insulin Lispro 100 UNIT/ML INSULN.PEN 20 UNIT SC (06:45)
[2022-07-15] MEDS: Insulin Lispro 100 UNIT/ML INSULN.PEN SC (06:45)
[2022-07-15] MEDS: Acetaminophen 325 MG Tablet 650 MG PO ×2 (06:46→13:26)
[2022-07-15] MEDS: 0.9% Normal Saline 1,000 ML 100 ML IV ×2 (06:47→16:28)
[2022-07-15 07:40] LABS: Bedside Glucose 152 mg/dL (74-106)
[2022-07-15 08:11] LABS: Absolute Lymphocyte Count 2.32 X10^3/uL (0.83-4.51); Absolute Neutrophil Count 4.3 X10^3/uL (2.0-7.7); Basophil# 0.06 X10^3/uL; Basophil% 0.8 % (0-1); Eosinophils% 5.3 % (0-5); Hematocrit 45.3 % (37-47); Hemoglobin 14.9 g/dL (12.0-15.0); Lymphocyte # 2.32 X10^3/ul (0.83-4.51); Lymphocyte % 30.5 % (19-41); Mean Corp Hgb Conc 32.9 g/dL (32-36); Mean Corpuscular Hgb 27.4 pg (27.0-32.0); Mean Corpuscular Volume 83.4 fL (81-99); Mean Platelet Vol. 9.5 fl (6.2-12.0); Monocyte# 0.48 X10^3/uL; Monocyte% 6.3 % (0-10); NRBC Flagged by Analyzer 0 % (0-5); Neutrophil # 4.32 X10^3/uL (2.7-7.7); Neutrophil % 56.7 % (47-70); Platelet Count 278 K/mm3 (150-450); RBC Distribution Width CV 14.6 % (11.6-14.6); RBC Distribution Width SD 44.1 fl (35.1-43.9); Red Blood Count 5.43 M/mm3 (4.2-5.4); White Blood Count 7.6 K/mm3 (4.4-11.0)
[2022-07-15 08:13] LABS: Amphetamine Urine VISTA POSITIVE (<1000 ng/mL); Barbiturate Urine VISTA NEGATIVE (< 200 ng/mL); Benzodiazepine Urine VISTA NEGATIVE (< 200 ng/mL); Cocaine Urine VISTA NEGATIVE (< 300 ng/mL); Ecstacy Urine VISTA NEGATIVE (< 500 ng/mL); Methadone Urine VISTA NEGATIVE (< 300 ng/mL); PCP Urine VISTA NEGATIVE (< 25 ng/mL); THC Urine VISTA NEGATIVE (< 50 ng/mL); Vista UDS pH Range 6
[2022-07-15 08:43] LABS: ALB/GLOB Ratio 0.9 RATIO (0.9-2.4); AST(SGOT) 30 U/L (15-37); Alanine Aminotransfer ALT/SGPT 56 U/L (13-56); Albumin, Serum 3.5 g/dL (3.2-5.0); Alkaline Phosphatase 100 U/L (45-117); Anion Gap 10 (5-15); BUN 7 mg/dL (7-18); Calcium,Total 8.7 mg/dL (8.5-10.1); Chloride 107 mmol/L (98-107); Cholesterol 210 mg/dL (200); EST Glomerular Filtration Rate 65 mL/min (>60); Est Glom Filt Rate - Afr Amer 79 mL/min (>60); Estimated Creatinine Clearance 70.01 ml/min; Globulin 3.9 g/dL (2.2-4.2); Glucose 149 mg/dL (74-106); High Density Lipoprotein 39 mg/dL; Potassium 3.8 mmol/L (3.5-5.1); Protein, Total 7.4 g/dL (6.4-8.2); Sodium Level 139 mmol/L (136-145); T4 Free Direct 0.82 ng/dL (0.76-1.46); Thyroid Stim Hormone (TSH) 2.25 uIU/mL (0.358-3.74); Triglycerides 178 mg/dL; Very Low Density Lipoprotein 36 mg/dL (5-40)
[2022-07-15 08:56] LABS: Hemoglobin A1c 8.4 % (3.8-5.6)
--- NOTE | 2022-07-15 09:58 | PCM.PN.HOSP ---
Reason for Visit Reason for Visit: Diagnoses Transient cerebral ischemic attack, unspecified (07/15/22) Subjective Subjective Patient is a 41-year-old lady with history of AVM migraine who presented with right-sided weakness. Admitted to a monitored bed where patient is currently undergoing eval Objective Data Objective Data Vital Signs: Vital Signs Temp Pulse Resp BP Pulse Ox O2 Del Method 97.4 F L 83 16 130/83 H 98 Room Air 07/15/22 07:40 07/15/22 07:40 07/15/22 07:40 07/15/22 07:40 07/15/22 08:08 07/15/22 08:08 Oxygen Delivery Method Room Air Weight: 105.6 kg Body Mass Index (BMI) 37.5 Lab / Micro Data Result Diagrams: 07/15/22 08:05 07/15/22 08:05 Labs: Laboratory Results - last 24 hr 07/15/22 01:43: PT 12.9, INR 1.0, APTT 27.3 07/15/22 01:43: WBC 7.9, RBC 5.61 H, Hgb 15.5 H, Hct 47.3 H, MCV 84.3, MCH 27.6, MCHC 32.8, RDW Std Deviation 44.0 H, RDW Coeff of Quentin 14.4, Plt Count 263, MPV 9.6, Immature Gran % (Auto) 0.900, Neut % (Auto) 51.6, Lymph % (Auto) 34.9, [place] % (Auto) 6.7, Eos % (Auto) 5.0, Baso % (Auto) 0.9, Absolute Neuts (auto) 4.1, Absolute Lymphs (auto) 2.74, Nucleated RBC % 0 07/15/22 01:43: Sodium 138, Potassium 3.8, Chloride 104, Carbon Dioxide 27.0, Anion Gap 7, BUN 6 L, Creatinine 0.97, Estim Creat Clear Calc 72.17, Est GFR (MDRD) Af Amer 82, Est GFR (MDRD) Non-Af 67, BUN/Creatinine Ratio 6.2 L, Glucose 165 H, Calcium 9.1, Magnesium 1.8 07/15/22 01:43: Magnesium 1.9 07/15/22 01:59: Ethyl Alcohol < 3.0 07/15/22 01:59: Serum , Qual NEGATIVE 07/15/22 03:05: Urine Color Yellow, Urine Clarity Clear, Urine pH 7.0, Ur Specific [place] 1.010, Urine Protein Negative, Urine Glucose (UA) Normal, Urine Ketones Negative, Urine Occult Blood Negative, Urine Nitrite Negative, Urine Bilirubin Negative, Urine Urobilinogen Normal, Ur Leukocyte Esterase Negative, Urine RBC 0-5 SEEN, Urine WBC 0-5 SEEN, Ur Squamous Epith Cells 0-5 SEEN, Urine Bacteria 1+, Urine Mucus 0 SEEN 07/15/22 03:40: Urine Opiates Screen NEGATIVE, Urine Methadone Screen NEGATIVE, Ur Barbiturates Screen NEGATIVE, Ur Phencyclidine Scrn NEGATIVE, Ur Amphetamines Screen POSITIVE H, MDMA (Ecstasy) Screen NEGATIVE, U Benzodiazepines Scrn NEGATIVE, Urine Cocaine Screen NEGATIVE, U Cannabinoids Screen NEGATIVE, Ur Drug Screen Comment 07/15/22 06:26: POC Glucose 152 H 07/15/22 08:05: WBC 7.6, RBC 5.43 H, Hgb 14.9, Hct 45.3, MCV 83.4, MCH 27.4, MCHC 32.9, RDW Std Deviation 44.1 H, RDW Coeff of Quentin 14.6, Plt Count 278, MPV 9.5, Immature Gran % (Auto) 0.400, Neut % (Auto) 56.7, Lymph % (Auto) 30.5, [place] % (Auto) 6.3, Eos % (Auto) 5.3 H, Baso % (Auto) 0.8, Absolute Neuts (auto) 4.3, Absolute Lymphs (auto) 2.32, Nucleated RBC % 0 07/15/22 08:05: Sodium 139, Potassium 3.8, Chloride 107, Carbon Dioxide 22.0, Anion Gap 10, BUN 7, Creatinine 1.00, Estim Creat Clear Calc 70.01, Est GFR (MDRD) Af Amer 79, Est GFR (MDRD) Non-Af 65, BUN/Creatinine Ratio 7.0 L, Glucose 149 H, Calcium 8.7, Total Bilirubin 0.40, AST 30, ALT 56, Alkaline Phosphatase 100, Total Protein 7.4, Albumin 3.5, Globulin 3.9, Albumin/Globulin Ratio 0.9, Triglycerides 178, Cholesterol 210 H, LDL Cholesterol 135 H, VLDL Cholesterol 36, HDL Cholesterol 39 L, TSH 2.25, Free T4 0.82 07/15/22 08:05: Hemoglobin A1c 8.4 H Radiography Diagnostic Testing: Radiology Impression Brain CT 07/15/22 01:37 IMPRESSION: No intracranial hemorrhage or acute territorial infarction. Findings discussed with Dr. Michael Hernandez via phone at 10:53 PM PST on 07/14/2022. N.B. : The above Results were Read Back by Luigi Armstrong MD to RADHA Quijano, and understanding confirmed on 07/15/2022 01:54:14 (ET). Electronically Signed: Luigi Armstrong MD at 1:55 EST , Chest X-Ray 07/15/22 01:37 IMPRESSION: No acute cardiopulmonary disease. Electronically Signed: Luigi Armstrong MD at 2:46 EST , Head/Neck CTA 07/15/22 01:38 IMPRESSION: No flow-limiting stenosis, aneurysm or dissection in the head and neck. Findings discussed with Dr Michael Hernandez via phone at 11:20 PM PST on 07/14/2022. N.B. : The above Results were Read Back by Luigi Armstrong MD to Dr Michael Hernandez DO, and understanding confirmed on 07/15/2022 02:21:42 (ET). Electronically Signed: Luigi Armstrong MD at 2:23 EST , ADDENDUM: 07/15/22 0230 IMPRESSION: No flow-limiting stenosis, aneurysm or dissection in the head and neck. Findings discussed with Dr Michael Hernandez via phone at 11:20 PM PST on 07/14/2022. N.B. : The above Results were Read Back by Luigi Armstrong MD to Dr Michael Hernandez, DO, and understanding confirmed on 07/15/2022 02:21:42 (ET). Electronically Signed: Luigi Armstrong MD at 2:23 EST , Physical Exam Narrative GENERAL: cooperative HEENT: Atraumatic; normocephalic EYES; Anicteric, Normal Conjunctiva NECK; supple, normal thyroid, RESPIRATORY: Diminished to auscultation CARDIOVASCULAR: Regular S1 S2, GI: soft, normoactive bowel sounds, : No Renal angle tenderness; EXTREMITIES: No edema, no clubbing, MUSCULOSKELETAL: no muscle wasting NEURO: Awake; no lateralizing signs. SKIN: No Rash PSYCH; Flat affect Assessment & Plan Assessment/Plan (1) TIA (transient ischemic attack): PLAN: Plan Patient is a 41-year-old lady with history of AVM migraine who presented with right-sided weakness. Admitted to a monitored bed where patient is currently undergoing eval 1. Right-sided weakness ? Patient admitted to monitored bed currently undergoing evaluation with every 4 neurochecks as well as MRI of the brain to rule out CVA. 2D echo was also ordered as part of patient's evaluation 2. History of cerebral AVMs ? Stable 3. Dysgenesis of corpus callosum ? Based on an MRI obtained on 11/23/2021 4. Hypertension - Blood pressure controlled, home medications continued with dose adjustment as needed 5. Diabetes mellitus type II -patient's oral hypoglycemics held. Placed on long acting insulin, Accu-Cheks a.c. and at bedtime and covered with sliding scale insulin 6. History of chronic migraines ? Currently stable 7. Seizure disorder ? Patient is on gabapentin continue 8. Class II obesity with BMI of 37.6 ? Weight loss advised 9. Dyslipidemia ? Patient is on Zetia continue 10. DVT prophylaxis ? SC Lovenox 11. Rheumatoid arthritis ? With chronic back pain, Pain meds as needed 12. Chronic dysphagia with gastroparesis ? Patient apparently is followed by GI as outpatient Time spent in the patient's overall evaluation,decision-making process, review of diagnostic data, adjustment of management, discussion with other providers, nursing nursing and ancillary staff involved in patient's care documentation, 38 minutes Charges/Coding Visit Charges Inpatient E&M: 98976 Subs Hosp L2
[2022-07-15] MEDS: Aspirin E.C. 81 MG Tablet PO (10:41)
[2022-07-15] MEDS: Ezetimibe 10 MG Tablet PO (10:41)
[2022-07-15] MEDS: Clopidogrel Bisulfate 75 MG Tablet PO (10:41)
[2022-07-15] MEDS: Gabapentin 800 MG Tablet PO ×3 (10:41→16:28)
[2022-07-15] MEDS: Insulin Glargine-YFGN 100 UNIT/ML Pen 60 UNIT SC (10:42)
[2022-07-15] MEDS: Enoxaparin 40 MG/0.4 ML Syringe SC (10:42)
[2022-07-15 11:05] LABS: Bedside Glucose 108 mg/dL (74-106)
[2022-07-15] MEDS: Ondansetron 4 MG/2 ML Vial IV (13:24)
[2022-07-15 13:51] LABS: Bedside Glucose 113 mg/dL (74-106)
--- NOTE | 2022-07-15 16:01 | CASEMGMT ---
RN CM in to discuss discharge planning with patient. Patient states she would like to discharge home with outpatient therapy. Script received and provided to patient. Patient states she has access to walker at home. Patient had no further questions or concerns at this time.
--- NOTE | 2022-07-15 16:41 | PCM.DC.SUM ---
Providers Date of Admission: 07/15/22 Date of Discharge: 07/15/22 Primary Care Physician: Dr. Jhonny Valladares MD Reason For Visit: TIA/CVA VS COMPLEX MIGRAINE VS CONVERSION/MALINGER Diagnosis Discharge Diagnosis (1) TIA (transient ischemic attack): Status: Acute Code(s): G45.9 - Transient cerebral ischemic attack, unspecified Plan Patient is a 41-year-old lady with history of AVM migraine who presented with right-sided weakness. Admitted to a monitored bed where patient is currently undergoing eval 1. Right-sided weakness ? Patient admitted to monitored bed currently undergoing evaluation with every 4 neurochecks as well as MRI of the brain to rule out CVA. 2D echo was also ordered as part of patient's evaluation ? Patient MRI came back negative for acute CVA discharged to instructed to follow-up with primary care physician for subsequent management 2. History of cerebral AVMs ? Stable 3. Dysgenesis of corpus callosum ? Based on an MRI obtained on 11/23/2021 4. Hypertension - Blood pressure controlled, home medications continued with dose adjustment as needed 5. Diabetes mellitus type II -patient's oral hypoglycemics held. Placed on long acting insulin, Accu-Cheks a.c. and at bedtime and covered with sliding scale insulin 6. History of chronic migraines ? Currently stable 7. Seizure disorder ? Patient is on gabapentin continue 8. Class II obesity with BMI of 37.6 ? Weight loss advised 9. Dyslipidemia ? Patient is on Zetia continue 10. DVT prophylaxis ? SC Lovenox 11. Rheumatoid arthritis ? With chronic back pain, Pain meds as needed 12. Chronic dysphagia with gastroparesis ? Patient apparently is followed by GI as outpatient Time spent in the patient's overall evaluation,decision-making process, review of diagnostic data, adjustment of management, discussion with other providers, nursing nursing and ancillary staff involved in patient's care documentation, 38 minutes Medications at Discharge Home Medications gabapentin 300 mg capsule (Neurontin) 800 mg PO TIDCM nerve pain 05/10/17 aspirin 81 mg tablet,delayed release 81 mg PO DAILY 02/20/22 clopidogrel 75 mg tablet (Plavix) 75 mg PO DAILY 02/20/22 ezetimibe 10 mg tablet (Zetia) 10 mg PO DAILY #90 tabs 03/19/22 Humalog KwikPen Insulin 100 unit/mL subcutaneous (insulin lispro) See Rx Instructions subcut TID #24 mL 05/12/22 insulin glargine 100 unit/mL (3 mL) subcutaneous pen (Lantus Solostar U-100 Insulin) 60 unit (0.6 mL) subcut DAILY #18 mL 05/12/22 Mounjaro 5 mg/0.5 mL subcutaneous pen injector (tirzepatide) 5 mg (0.5 mL) subcut QWEEK #6 mL 07/13/22 baclofen 5 mg tablet 5 mg PO QHS #30 tabs 07/15/22 Hospital Course Summary of Care Provided Minutes Spent on Discharge: 38 Physical Exam Narrative GENERAL: cooperative HEENT: Atraumatic; normocephalic EYES; Anicteric, Normal Conjunctiva NECK; supple, normal thyroid, RESPIRATORY: Diminished to auscultation CARDIOVASCULAR: Regular S1 S2, GI: soft, normoactive bowel sounds, : No Renal angle tenderness; EXTREMITIES: No edema, no clubbing, MUSCULOSKELETAL: no muscle wasting NEURO: Awake; no lateralizing signs. SKIN: No Rash PSYCH; Flat affect Weight / BMI Weight Weight: 105.6 kg Body Mass Index (BMI) 37.5 ABG / Lab / Microbiology Data Result Diagrams: 07/15/22 08:05 07/15/22 08:05 Laboratory: Laboratory Results - last 24 hr 07/15/22 01:43: PT 12.9, INR 1.0, APTT 27.3 07/15/22 01:43: WBC 7.9, RBC 5.61 H, Hgb 15.5 H, Hct 47.3 H, MCV 84.3, MCH 27.6, MCHC 32.8, RDW Std Deviation 44.0 H, RDW Coeff of Quentin 14.4, Plt Count 263, MPV 9.6, Immature Gran % (Auto) 0.900, Neut % (Auto) 51.6, Lymph % (Auto) 34.9, Miller % (Auto) 6.7, Eos % (Auto) 5.0, Baso % (Auto) 0.9, Absolute Neuts (auto) 4.1, Absolute Lymphs (auto) 2.74, Nucleated RBC % 0 07/15/22 01:43: Sodium 138, Potassium 3.8, Chloride 104, Carbon Dioxide 27.0, Anion Gap 7, BUN 6 L, Creatinine 0.97, Estim Creat Clear Calc 72.17, Est GFR (MDRD) Af Amer 82, Est GFR (MDRD) Non-Af 67, BUN/Creatinine Ratio 6.2 L, Glucose 165 H, Calcium 9.1, Magnesium 1.8 07/15/22 01:43: Magnesium 1.9 07/15/22 01:59: Ethyl Alcohol < 3.0 07/15/22 01:59: Serum , Qual NEGATIVE 07/15/22 03:05: Urine Color Yellow, Urine Clarity Clear, Urine pH 7.0, Ur Specific [place] 1.010, Urine Protein Negative, Urine Glucose (UA) Normal, Urine Ketones Negative, Urine Occult Blood Negative, Urine Nitrite Negative, Urine Bilirubin Negative, Urine Urobilinogen Normal, Ur Leukocyte Esterase Negative, Urine RBC 0-5 SEEN, Urine WBC 0-5 SEEN, Ur Squamous Epith Cells 0-5 SEEN, Urine Bacteria 1+, Urine Mucus 0 SEEN 07/15/22 03:40: Urine Opiates Screen NEGATIVE, Urine Methadone Screen NEGATIVE, Ur Barbiturates Screen NEGATIVE, Ur Phencyclidine Scrn NEGATIVE, Ur Amphetamines Screen POSITIVE H, MDMA (Ecstasy) Screen NEGATIVE, U Benzodiazepines Scrn NEGATIVE, Urine Cocaine Screen NEGATIVE, U Cannabinoids Screen NEGATIVE, Ur Drug Screen Comment 07/15/22 06:26: POC Glucose 152 H 07/15/22 08:05: WBC 7.6, RBC 5.43 H, Hgb 14.9, Hct 45.3, MCV 83.4, MCH 27.4, MCHC 32.9, RDW Std Deviation 44.1 H, RDW Coeff of Quentin 14.6, Plt Count 278, MPV 9.5, Immature Gran % (Auto) 0.400, Neut % (Auto) 56.7, Lymph % (Auto) 30.5, Miller % (Auto) 6.3, Eos % (Auto) 5.3 H, Baso % (Auto) 0.8, Absolute Neuts (auto) 4.3, Absolute Lymphs (auto) 2.32, Nucleated RBC % 0 07/15/22 08:05: Sodium 139, Potassium 3.8, Chloride 107, Carbon Dioxide 22.0, Anion Gap 10, BUN 7, Creatinine 1.00, Estim Creat Clear Calc 70.01, Est GFR (MDRD) Af Amer 79, Est GFR (MDRD) Non-Af 65, BUN/Creatinine Ratio 7.0 L, Glucose 149 H, Calcium 8.7, Total Bilirubin 0.40, AST 30, ALT 56, Alkaline Phosphatase 100, Total Protein 7.4, Albumin 3.5, Globulin 3.9, Albumin/Globulin Ratio 0.9, Triglycerides 178, Cholesterol 210 H, LDL Cholesterol 135 H, VLDL Cholesterol 36, HDL Cholesterol 39 L, TSH 2.25, Free T4 0.82 07/15/22 08:05: Hemoglobin A1c 8.4 H 07/15/22 10:39: POC Glucose 108 H 07/15/22 13:21: POC Glucose 113 H Radiography Diagnostic Testing: Radiology Impression Brain CT 07/15/22 01:37 IMPRESSION: No intracranial hemorrhage or acute territorial infarction. Findings discussed with Dr. Michael Hernandez via phone at 10:53 PM PST on 07/14/2022. N.B. : The above Results were Read Back by Luigi Armstrong MD to RADHA Quijano, and understanding confirmed on 07/15/2022 01:54:14 (ET). Electronically Signed: Luigi Armstrong MD at 1:55 EST , Chest X-Ray 07/15/22 01:37 IMPRESSION: No acute cardiopulmonary disease. Electronically Signed: Luigi Armstrong MD at 2:46 EST , Head/Neck CTA 07/15/22 01:38 IMPRESSION: No flow-limiting stenosis, aneurysm or dissection in the head and neck. Findings discussed with Dr Michael Hernandez via phone at 11:20 PM PST on 07/14/2022. N.B. : The above Results were Read Back by Luigi Armstrong MD to Dr Michael Hernandez DO, and understanding confirmed on 07/15/2022 02:21:42 (ET). Electronically Signed: Luigi Armstrong MD at 2:23 EST , ADDENDUM: 07/15/22 0230 IMPRESSION: No flow-limiting stenosis, aneurysm or dissection in the head and neck. Findings discussed with Dr Michael Hernandez via phone at 11:20 PM PST on 07/14/2022. N.B. : The above Results were Read Back by Luigi Armstrong MD to Dr Michael Hernandez DO, and understanding confirmed on 07/15/2022 02:21:42 (ET). Electronically Signed: Luigi Armstrong MD at 2:23 EST , Brain MRI 07/15/22 04:26 IMPRESSION: 1. No acute findings. 2. Partial agenesis of the corpus callosum. 3. Mild chronic sinusitis. Electronically Signed: Kimmie Welch MD at 16:32 EST Reading Location ID and State: [id number] / Tel , Service support , D/C Instructions Discharge Diet: No restrictions Discharge Activity: Return to Normal Activity Call your doctor if you observe: Fever of 101 or Higher, Shortness of breath, Fainting spells and Chest pain Meaningful Use Info Meaningful Use Diagnoses (Choose all that apply): None applicable Discharge Plan Admission Admit Date/Time: 07/15/22 03:29 Attending Provider: Diallo Ma Primary Care Provider: Jhonny Valladares Consulting Providers: Sherie Hernandez Discharge Orders/Prescriptions Prescriptions: Continued ezetimibe [Zetia] 10 mg tablet 10 mg PO DAILY Qty: 90 1RF gabapentin [Neurontin] 300 MG capsule 800 mg PO TIDCM clopidogrel [Plavix] 75 mg Tablet 75 mg PO DAILY aspirin 81 mg Tablet,Delayed Release (Dr/Ec) 81 mg PO DAILY insulin lispro [Humalog KwikPen Insulin] 100 unit/mL insulin pen See Rx Instructions subcut TID MDD 80 units Qty: 24 3RF Rx Instructions: 20 units tid with meals plus SSI subcutaneously three times a day; insulin glargine [Lantus Solostar U-100 Insulin] 100 unit/mL (3 mL) insulin pen 60 unit subcut DAILY Qty: 18 2RF Mounjaro 5 mg/0.5 mL pen injector 5 mg subcut QWEEK Qty: 6 1RF baclofen 5 mg tablet 5 mg PO QHS Qty: 30 1RF Referrals / Follow Up: Jhonny Valladares MD [Primary Care Provider] - In 1 Week Disposition Disposition (needs filled in before D/C Order can be placed): Home, Self Care Charges/Coding Visit Charges Inpatient E&M: 87265 Disch Hosp >30min
[2022-07-15 17:25] LABS: Bedside Glucose 87 mg/dL (74-106)
== END 2022-07-15 16:41 | disposition home or self-care (01) ==
LOC: ED 03:25 → PCU 03:37
PROVIDERS: Admitting Provider Family Medicine; Emergency Provider Emergency Medicine; PCP Family Medicine; Visit Provider Internal Medicine
DX: G45.9 Transient cerebral ischemic attack, unspecified (principal); G81.93 Hemiplegia, unspecified affecting right nondominant side; M06.9 Rheumatoid arthritis, unspecified; E11.43 Type 2 diabetes mellitus with diabetic autonomic (poly)neuropathy; Z79.4 Long term (current) use of insulin; E78.5 Hyperlipidemia, unspecified; G89.29 Other chronic pain; M79.7 Fibromyalgia; I10 Essential (primary) hypertension; Z79.82 Long term (current) use of aspirin; K21.9 Gastro-esophageal reflux disease without esophagitis; R29.810 Facial weakness; E66.9 Obesity, unspecified; Z68.37 Body mass index [BMI] 37.0-37.9, adult; Q28.2 Arteriovenous malformation of cerebral vessels; Z79.899 Other long term (current) drug therapy; Z79.02 Long term (current) use of antithrombotics/antiplatelets; K31.84 Gastroparesis
CPT/HCPCS: 36415; 70450; 70496; 70498; 70551; 71045; 80048; 80053; 80061; 80307; 81001; 82077; 82962; 83036; 83735; 84439; 84443; 84703; 85025; 85610; 85730; 90471; 92610; 93005; 94668; 96361; 96372; 96374; 97162; 97166; 97802; 99221; 99285; J7030; Q9967; G0378; J2405

== ENCOUNTER → 2022-08-07 | Outpatient (CLI) | payer MEDICARE, MEDICAID, SELFPAY ==
--- NOTE | 2022-08-07 09:06 | RAD_ITS ---
STUDY: X-RAY - LUMBAR SPINE REASON FOR EXAM: Female, 41 years old. [place] TECHNIQUE: 3 view(s) of the lumbar spine were obtained. COMPARISON: Comparison is made with prior examination dated June 16, 2021. FINDINGS: Normal lumbar lordosis. There is no substantial scoliosis. There is a normal alignment of the vertebrae. There is multilevel endplate spondylosis of the lumbar vertebrae. This space narrowing and spondylosis at the L1-L2 level. Embolization coils in the left ovarian vein. RAD/Lumbar Spine 2 or 3 Views IMPRESSION: Degenerative changes of the spine, as detailed above. Electronically Signed: Venancio Peter MD at 15:26 EDT ,
[2022-08-07 10:48] LABS: Vitamin B12 493 pg/mL (211-911)
[2022-08-12 09:38] LABS: VITAMIN B6 3.1 ug/L (3.4-65.2); Vitamin B1, Thiamine 105.7 nmol/L (66.5-200.0)
== END | disposition home or self-care (01) ==
LOC: MTLAB 09:04
PROVIDERS: PCP Family Medicine; Referring Provider Family Medicine; Visit Provider Family Medicine
DX: R29.6 Repeated falls (principal); E11.40 Type 2 diabetes mellitus with diabetic neuropathy, unspecified
CPT/HCPCS: 36415; 72100; 82607; 84207; 84425

== ENCOUNTER 2022-10-30 07:24 | Day surgery (SDC) | payer MEDICARE, MEDICAID, SELFPAY ==
[2022-10-30] MEDS: Lidocaine Jelly 2% 20 ML Syringe (URO-JET) 1 APPLIC (07:38)
[2022-10-30 07:43] VITALS: BP 147/94; PULSE 81; RESP 16; TEMP 36.4; O2SAT 100
== END 2022-10-30 08:19 | disposition home or self-care (01) ==
PROVIDERS: PCP Family Medicine; Referring Provider Family Medicine; Visit Provider Internal Medicine Gastroenterology
PROC: F00ZJWZ Instrumental Swallowing and Oral Function Assessment using Swallowing Equipment (ICD-10-PCS; CPT 43235; principal; 2022-10-30 07:55)
DX: R13.10 Dysphagia, unspecified (principal)
CPT/HCPCS: 91010

== ENCOUNTER → 2022-11-18 | Outpatient (CLI) | payer MEDICARE, MEDICAID, SELFPAY ==
[2022-11-18 17:59] LABS: Absolute Lymphocyte Count 2.61 X10^3/uL (0.83-4.51); Absolute Neutrophil Count 4.2 X10^3/uL (2.0-7.7); Basophil# 0.09 X10^3/uL; Basophil% 1.1 % (0-1); Eosinophil# 0.57 X10^3/uL; Eosinophils% 7.1 % (0-5); Hematocrit 43.4 % (37-47); Hemoglobin 14.6 g/dL (12.0-15.0); Lymphocyte # 2.61 X10^3/ul (0.83-4.51); Lymphocyte % 32.7 % (19-41); Mean Corp Hgb Conc 33.6 g/dL (32-36); Mean Corpuscular Hgb 27.8 pg (27.0-32.0); Mean Corpuscular Volume 82.5 fL (81-99); Mean Platelet Vol. 9.9 fl (6.2-12.0); Monocyte# 0.53 X10^3/uL; Monocyte% 6.6 % (0-10); NRBC Flagged by Analyzer 0 % (0-5); Neutrophil # 4.15 X10^3/uL (2.7-7.7); Neutrophil % 52.1 % (47-70); Platelet Count 272 K/mm3 (150-450); RBC Distribution Width CV 14.2 % (11.6-14.6); RBC Distribution Width SD 42.4 fl (35.1-43.9); Red Blood Count 5.26 M/mm3 (4.2-5.4)
[2022-11-18 18:12] LABS: Vitamin D,25 Hydroxy 16.7 ng/mL
[2022-11-18 18:46] LABS: ALB/GLOB Ratio 0.9 RATIO (0.9-2.4); AST(SGOT) 50 U/L (15-37); Alanine Aminotransfer ALT/SGPT 57 U/L (13-56); Albumin, Serum 3.6 g/dL (3.2-5.0); Alkaline Phosphatase 98 U/L (45-117); Anion Gap 8 (5-15); BUN 15 mg/dL (7-18); BUN/Creat Ratio 14.3 RATIO (10-20); Calcium,Total 8.9 mg/dL (8.5-10.1); Chloride 105 mmol/L (98-107); Cholesterol 194 mg/dL (200); Creatinine, Serum 1.05 mg/dL (0.55-1.02); EST Glomerular Filtration Rate 61 mL/min (>60); Est Glom Filt Rate - Afr Amer 74 mL/min (>60); Glucose 117 mg/dL (74-106); High Density Lipoprotein 41 mg/dL; Potassium 3.8 mmol/L (3.5-5.1); Protein, Total 7.6 g/dL (6.4-8.2); Sodium Level 137 mmol/L (136-145); Triglycerides 187 mg/dL; Very Low Density Lipoprotein 37 mg/dL (5-40)
== END | disposition home or self-care (01) ==
LOC: MTLAB 14:59
PROVIDERS: PCP Family Medicine; Referring Provider Family Medicine; Visit Provider Family Medicine
DX: E11.9 Type 2 diabetes mellitus without complications (principal); E55.9 Vitamin D deficiency, unspecified
CPT/HCPCS: 36415; 80053; 80061; 82306; 85025

== ENCOUNTER 2023-01-03 13:08 | Emergency (ER) | payer MEDICARE, MEDICAID, SELFPAY ==
[2023-01-03 13:09] VITALS: BP 140/125; PULSE 96; RESP 18; TEMP 36.3; O2SAT 99; BMI 33.5
--- NOTE | 2023-01-03 14:02 | CT_ITS ---
STUDY: CT SOFT TISSUE NECK WITH CONTRAST REASON FOR EXAM: Female, 42 years old. Infection TECHNIQUE: The patient was scanned in a multi-detector CT scanner. High resolution transaxial imaging was performed following intravenous administration of 75 ml of Isovue 370 contrast material. Sagittal and coronal images were reconstructed. Individualized dose optimization techniques were used for this CT. COMPARISON: 07.15.22. FINDINGS: Normal bilateral parotid glands. Normal bilateral personal financial advisor spaces. Normal bilateral parapharyngeal spaces. Normal bilateral carotid spaces. Stable prominent submandibular lymph nodes. Normal visualized nasopharynx. Normal retropharyngeal space. Normal perivertebral space. Normal visualized bilateral faucial tonsils. The visualized tongue, tongue base and oropharynx are normal. There are minimally enlarged lymph nodes of the neck, with preservation of normal marcell architecture, consistent with a reactive lymph hyperplasia. Normal epiglottis, bilateral vallecula and hypopharynx. The pre-epiglottic and paraglottic adipose spaces are normal. Normal visualized bilateral piriform sinuses, aryepiglottic folds, vocal cords, and arytenoid-cricoid articulations. Normal subglottic trachea. Normal bilateral lobes of the thyroid gland. Normal visualized pulmonary apices. Normal visualized paranasal sinuses. There is multilevel degenerative changes of the cervical spine. CT/Soft Tissue Neck WITH Contrast IMPRESSION: Stable submandibular and bilateral neck lymph nodes. Electronically Signed: Toi Farmer MD at 16:03 EDT ,
[2023-01-03] MEDS: MethylPREDNISolone 125 MG/2 ML Vial 80 MG IV (14:31)
[2023-01-03 14:32] LABS: Absolute Neutrophil Count 2.8 X10^3/uL (2.0-7.7); Basophil# 0.06 X10^3/uL; Basophil% 1.1 % (0-1); Eosinophils% 9.1 % (0-5); Hematocrit 42.1 % (37-47); Hemoglobin 13.7 g/dL (12.0-15.0); Lymphocyte % 32.6 % (19-41); Mean Corp Hgb Conc 32.5 g/dL (32-36); Mean Corpuscular Hgb 26.9 pg (27.0-32.0); Mean Corpuscular Volume 82.5 fL (81-99); Mean Platelet Vol. 9.6 fl (6.2-12.0); Monocyte# 0.39 X10^3/uL; Monocyte% 7.1 % (0-10); NRBC Flagged by Analyzer 0 % (0-5); Neutrophil # 2.75 X10^3/uL (2.7-7.7); Neutrophil % 49.7 % (47-70); Platelet Count 237 K/mm3 (150-450); RBC Distribution Width CV 14.3 % (11.6-14.6); RBC Distribution Width SD 42.6 fl (35.1-43.9); White Blood Count 5.5 K/mm3 (4.4-11.0)
[2023-01-03 14:58] LABS: Anion Gap 8 (5-15); BUN 11 mg/dL (7-18); BUN/Creat Ratio 12.8 RATIO (10-20); Calcium,Total 8.6 mg/dL (8.5-10.1); Chloride 102 mmol/L (98-107); Creatinine, Serum 0.86 mg/dL (0.55-1.02); EST Glomerular Filtration Rate 77 mL/min (>60); Est Glom Filt Rate - Afr Amer 94 mL/min (>60); Estimated Creatinine Clearance 80.59 ml/min; Glucose 294 mg/dL (74-106); Potassium 3.6 mmol/L (3.5-5.1); Sodium Level 135 mmol/L (136-145)
--- NOTE | 2023-01-03 15:15 | EDS_ITS ---
HPI History of Present Illness Chief Complaint: Other, Pain/Inj Informant: patient Onset/Context/Timing Onset: Days (3) Context: Gradual Onset Timing: Continuous Quality: Sharp Location: Right neck and throat Worsened by: Swallowing Relieved by: Nothing Narrative Narrative: Patient presents with possible peritonsillar abscess that has been getting worse over the last 3 days. Patient states he had a peritonsillar abscess and was prescribed Cipro and Flagyl for that. Patient states she finished the Cipro and Flagyl 4 days ago. Patient states that 3 days ago she started feeling some pain in her throat on the right. Patient states she is also having pain in her right ear and neck. Patient describes her pain as sharp. Patient states it is constant. Patient states it is worse with swallowing. Patient admits to subjective fevers but did not take her temperature at home. Patient denies any chest pain or shortness of breath. [facility] Medical History (Updated 01/03/23 @ 16:[address] Justin Valenzuela, DO) Acne Anxiety AVM (arteriovenous malformation) brain Back pain Cardiology follow-up encounter Depression Dietary restriction Difficulty swallowing Epilepsy Fatty liver Fibromyalgia Gastroparesis Hepatitis History of echocardiogram History of hiatal hernia History of IBS HTN (hypertension) Insulin dependent diabetes mellitus Marijuana use Restless legs Rheumatoid arthritis Seizure disorder Thyroid disease TIA (transient ischemic attack) Wears glasses Home Medications gabapentin 300 mg capsule (Neurontin) 800 mg PO TIDCM nerve pain 05/10/17 [History Last Taken 02/24/22 10:00] aspirin 81 mg tablet,delayed release 81 mg PO DAILY 02/20/22 [History Last Taken Unknown] clopidogrel 75 mg tablet (Plavix) 75 mg PO DAILY 02/20/22 [History Last Taken Unknown] Humalog KwikPen Insulin 100 unit/mL subcutaneous (insulin lispro) See Rx Instructions subcut TID #24 mL 05/12/22 [Rx Last Taken Unknown] insulin glargine 100 unit/mL (3 mL) subcutaneous pen (Lantus Solostar U-100 Insulin) 60 unit (0.6 mL) subcut DAILY #18 mL 05/12/22 [Rx Last Taken Unknown] ezetimibe 10 mg tablet (Zetia) 10 mg PO DAILY #90 tabs 09/14/22 [Rx Last Taken Unknown] Mounjaro 15 mg/0.5 mL subcutaneous pen injector (tirzepatide) 15 mg (0.5 mL) subcut QWEEK #6 mL 11/13/22 [Rx Last Taken Unknown] cholecalciferol (vitamin D3) 1,250 mcg (50,000 unit) capsule 1,250 mcg PO QMONTH #12 caps 11/16/22 [Rx Last Taken Unknown] tirzepatide 12.5 mg/0.5 mL subcutaneous pen injector (Mounjaro) 12.5 mg (0.5 mL) subcut QWEEK #2 mL 12/02/22 [Rx Last Taken Unknown] amoxicillin 875 mg-potassium clavulanate 125 mg tablet 875 mg (0.875 x 875-125 mg) PO Q12H #20 TABLETS 01/03/23 [Rx Last Taken Unknown] Allergy/AdvReac Type Severity Reaction Status Date / Time Sulfa (Sulfonamide Allergy Intermediate Hives Verified 01/03/23 13:09 Antibiotics) Iodinated Contrast Media Allergy Mild Rash Verified 01/03/23 13:09 nortriptyline AdvReac Severe Other Verified 01/03/23 13:09 metformin AdvReac Intermediate Diarrhea Verified 01/03/23 13:09 morphine AdvReac Itching Verified 01/03/23 13:09 Family History Father GERD (gastroesophageal reflux disease) Mother Rheumatoid arthritis Other Anxiety Arthritis Autoimmune disorder Surgical History (Updated 01/03/23 @ 15:[address] Justin Valenzuela, ) History of section History of esophagogastroduodenoscopy (EGD) History of surgery of uterus Hx of appendectomy S/P cholecystectomy S/P hysterectomy Status post left foot surgery Status post right foot surgery Social History household members: none Smoking Status: Never smoker alcohol intake: current alcohol intake frequency: holidays/special occasions only substance use type: does not use what type of physical activity do you participate in: walking frequency: 3-4 times per week ROS ROS ED Constitutional Constitutional ED: Reports fever(s) and subjective; Denies chills Eyes Eyes: Denies blurry vision or change in vision ENT ENT ED: Reports ear pain right and sore throat; Denies rhinorrhea Cardiovascular Cardiovascular: Denies chest pain or palpitations Respiratory/Chest Respiratory/Chest: Denies cough or dyspnea Gastrointestinal Gastrointestinal: Denies nausea or vomiting Genitourinary Genitourinary ED: Denies dysuria or hematuria Musculoskeletal Musculoskeletal: Reports neck pain; Denies back pain Integumentary Denies abscess or rash Neurologic Neurologic: Denies headache(s) or weakness Allergic/Immunologic Allergic/Immunologic ED: Denies mouth swelling or urticaria EXAM Physical Exam Const Vital Signs: 01/03/23 13:09 01/03/23 13:54 Temperature 97.4 F L Temperature Source Temporal Pulse Rate 96 Respiratory Rate 18 Respiratory Effort Normal Non-Labored Respiratory Pattern Normal Blood Pressure 140/125 H Blood Pressure Mean 130 Pulse Ox 99 Oxygen Delivery Method Room Air Positive well nourished and well developed General Appearance ED: well developed and NAD HEENT Reports moist mucous membranes HEENT Narrative: Oral mucosa is pink and moist. Oropharynx has some slight erythema. There is some postnasal drainage. There is no unilateral tonsillar swelling. Airway is patent. Neck supple and no JVD Neck Narrative: There is mild tenderness over the right side of the neck anteriorly. There is mild anterior cervical lymphadenopathy noted. Trachea is midline. Resp normal respiratory effort and clear to auscultation bilaterally Cardio regular rate, regular rhythm and no murmurs GI normal to inspection, nondistended, normoactive bowel sounds and non-tender Palpation: soft Extremity normal to inspection General Extremety ED: Negative for edema or tenderness General Extremity: Negative for edema Neuro oriented x3, CN's II-XII intact bilaterally and no sensory deficits noted Sensorium / Orientation: alert Motor Exam: strength 5/5 throughout Psych mental status grossly normal Skin no rashes or lesions noted MDM MDM MDM Narrative Medical decision making narrative: Differential diagnosis includes peritonsillar abscess, viral pharyngitis, and strep pharyngitis. CT scan of the soft tissue neck will be obtained to assess for peritonsillar abscess. CBC will be obtained to assess for leukocytosis and anemia. Basic metabolic profile will be obtained to assess for electrolyte abnormality and renal function. Lab Data Attestation: I reviewed the patient's lab results. Lab results narrative: CBC was reviewed and was within normal limits. Basic metabolic profile was reviewed. Glucose was 294. Anion gap was normal. Electrolytes were normal. BUN and creatinine were normal. Labs: Laboratory Results - last 24 hr 01/03/23 14:24 WBC 5.5 RBC 5.10 Hgb 13.7 Hct 42.1 MCV 82.5 MCH 26.9 L MCHC 32.5 RDW Std Deviation 42.6 RDW Coeff of Quentin 14.3 Plt Count 237 MPV 9.6 Immature Gran % (Auto) 0.400 Neut % (Auto) 49.7 Lymph % (Auto) 32.6 [place] % (Auto) 7.1 Eos % (Auto) 9.1 H Baso % (Auto) 1.1 H Absolute Neuts (auto) 2.8 Absolute Lymphs (auto) 1.80 Nucleated RBC % 0 Sodium 135 L Potassium 3.6 Chloride 102 Carbon Dioxide 25.0 Anion Gap 8 BUN 11 Creatinine 0.86 Estim Creat Clear Calc 80.59 Est GFR (MDRD) Af Amer 94 Est GFR (MDRD) Non-Af 77 BUN/Creatinine Ratio 12.8 Glucose 294 H Calcium 8.6 Radiography Diagnostic Testing: Clinical Impression(s) from Imaging Studies Soft Tissue Neck CT 01/03/23 14:02 IMPRESSION: Stable submandibular and bilateral neck lymph nodes. Electronically Signed: Toi Farmer MD at 16:03 EDT Reading Location ID and State: [facility] / [place] , Service support , CT scan of the soft tissue neck was obtained. There is stable submandibular and bilateral cervical lymph nodes. There is no abscess formation. Treatment and Re-Evaluation :: Patient was given a dose of Solu-Medrol prior to the CT scan because of her history of allergy to contrast dye. Patient did not want any Benadryl. Patient was given a dose of Unasyn here. Patient was advised of her findings. Patient is requesting something for pain. Patient was given a dose of [place] here. Patient will be given a prescription for Augmentin. Patient was instructed to follow-up with ENT and her primary care physician in 5 to 7 days. Patient understood and was agreeable with the plan. All questions were answered. Discharge Plan Triage Chief Complaint: Other, Pain/Inj ED Provider: Justin Valenzuela Dx/Rx/DC Orders Clinical Impression: Pharyngitis Instructions: ED Pharyngitis, Strep (Presumed) Prescriptions: New amoxicillin-pot clavulanate [amoxicillin-pot clavulanate] 875-125 mg tablet 875 mg PO Q12H Qty: 20 0RF No Action cholecalciferol (vitamin D3) 1,250 mcg (50,000 unit) capsule 1,250 mcg PO QMONTH Qty: 12 0RF gabapentin [Neurontin] 300 MG capsule 800 mg PO TIDCM clopidogrel [Plavix] 75 mg Tablet 75 mg PO DAILY aspirin 81 mg Tablet,Delayed Release (Dr/Ec) 81 mg PO DAILY insulin lispro [Humalog KwikPen Insulin] 100 unit/mL insulin pen See Rx Instructions subcut TID MDD 80 units Qty: 24 3RF Rx Instructions: 20 units tid with meals plus SSI subcutaneously three times a day; insulin glargine [Lantus Solostar U-100 Insulin] 100 unit/mL (3 mL) insulin pen 60 unit subcut DAILY Qty: 18 2RF ezetimibe [Zetia] 10 mg tablet 10 mg PO DAILY Qty: 90 1RF Mounjaro 15 mg/0.5 mL pen injector 15 mg subcut QWEEK Qty: 6 1RF Mounjaro 12.5 mg/0.5 mL pen injector 12.5 mg subcut QWEEK Qty: 2 2RF Primary Care Provider: Jhonny Valladares Referrals: Jhonny Valladares MD [Primary Care Provider] - 5-7 Days Fabricio Valentin MD [Med Staff - Active Staff] - 5-7 Days Disposition Disposition: Home, Self Care
[2023-01-03 16:06] VITALS: RESP 18
[2023-01-03] MEDS: HYDROcodone Bitartrate/Apap 5/325 Tablet PO (16:50)
== END 2023-01-03 16:52 | disposition home or self-care (01) ==
PROVIDERS: Emergency Provider Emergency Medicine; PCP Family Medicine; Visit Provider Emergency Medicine
DX: J02.9 Acute pharyngitis, unspecified (principal); E11.43 Type 2 diabetes mellitus with diabetic autonomic (poly)neuropathy; Z79.4 Long term (current) use of insulin; I10 Essential (primary) hypertension; Q27.30 Arteriovenous malformation, site unspecified; Z86.73 Personal history of transient ischemic attack (TIA), and cerebral infarction without residual deficits
CPT/HCPCS: 70491; 80048; 85025; 96365; 96375; 99284; Q9967; A4216; J0295

== ENCOUNTER → 2023-01-04 | Outpatient (CLI) | payer MEDICARE, MEDICAID, SELFPAY | END | disposition home or self-care (01) | LOC: LABSPEC 15:21 | PROVIDERS: PCP Family Medicine; Referring Provider Otolaryngology; Visit Provider Otolaryngology | DX: K08.89 Other specified disorders of teeth and supporting structures (principal) | CPT/HCPCS: 87070 ==

== ENCOUNTER 2023-05-27 20:24 | Emergency (ER) | payer MEDICARE, MEDICAID, SELFPAY ==
[2023-05-27 20:27] VITALS: BP 108/87; PULSE 103; RESP 17; TEMP 36.5; O2SAT 100; BMI 27.4
--- NOTE | 2023-05-27 21:44 | EKG12_ITS ---
Test Reason : DYSRHYTHMIA Blood Pressure : / mmHG Vent. Rate : 104 BPM Atrial Rate : 104 BPM P-R Int : 126 ms QRS Dur : 080 ms QT Int : 356 ms P-R-T Axes : 075 019 072 degrees QTc Int : 468 ms Sinus tachycardia Nonspecific T wave abnormality Abnormal ECG Confirmed by ANIKA ELIZONDO, STACI ([id number]), research editor LAURA STRAUSS ([id number]) on 05/28/2023 10:28:10 AM Referred By: MAKAYLA Confirmed By:STACI DONALDSON MD
--- NOTE | 2023-05-27 21:44 | RAD_ITS ---
INDICATION: chest pain EXAMINATION/TECHNIQUE: X-RAY - XR Chest 1 View COMPARISON: FINDINGS: LINES/DEVICES: None. LUNGS: No consolidation, edema or effusion. No pneumothorax. MEDIASTINUM AND CARDIOVASCULAR STRUCTURES: Cardiac silhouette not enlarged. Central airways and mediastinal contour are unremarkable. BONES AND SOFT TISSUES: Unremarkable. RAD/Chest 1 View (Portable) IMPRESSION: No radiographic evidence of acute cardiopulmonary disease. Electronically Signed: Bruno Redmond DO at 22:01 EST ,
[2023-05-27 21:58] LABS: Absolute Lymphocyte Count 3.42 X10^3/uL (0.83-4.51); Absolute Neutrophil Count 1.9 X10^3/uL (2.0-7.7); Basophil# 0.06 X10^3/uL; Eosinophil# 0.14 X10^3/uL; Eosinophils% 2.4 % (0-5); Hematocrit 39.5 % (37-47); Hemoglobin 12.8 g/dL (12.0-15.0); Lymphocyte # 3.42 X10^3/ul (0.83-4.51); Lymphocyte % 57.6 % (19-41); Mean Corp Hgb Conc 32.4 g/dL (32-36); Mean Corpuscular Hgb 24.8 pg (27.0-32.0); Mean Corpuscular Volume 76.4 fL (81-99); Mean Platelet Vol. 10.9 fl (6.2-12.0); Monocyte# 0.39 X10^3/uL; Monocyte% 6.6 % (0-10); NRBC Flagged by Analyzer 0 % (0-5); Neutrophil # 1.91 X10^3/uL (2.7-7.7); Neutrophil % 32.1 % (47-70); POSITIVE MORPHOLOGY YES; Platelet Count 195 K/mm3 (150-450); RBC Distribution Width CV 13.5 % (11.6-14.6); Red Blood Count 5.17 M/mm3 (4.2-5.4); White Blood Count 5.9 K/mm3 (4.4-11.0)
[2023-05-27 22:01] LABS: Differential Indicated SCAN CRITERIA MET
[2023-05-27 22:15] VITALS: BP 115/74; PULSE 105; RESP 12
--- NOTE | 2023-05-27 22:16 | ED.VIS.DYS ---
HPI History of Present Illness Chief Complaint: Shortness of Breath Narrative Narrative: 42-year-old female with history of complex PTSD presenting with episodes of dyspnea and shortness of breath. She states she gets sweaty and short of breath periodically. She has had about 5 episodes this week. Patient states she is never really had panic attacks before. She denies fevers or chills. She denies cough. No nausea or vomiting. She states he is not having chest pain. [facility] Medical History Acne Anxiety AVM (arteriovenous malformation) brain Back pain Cardiology follow-up encounter Depression Dietary restriction Difficulty swallowing Epilepsy Fatty liver Fibromyalgia Gastroparesis Hepatitis History of echocardiogram History of hiatal hernia History of IBS HTN (hypertension) Insulin dependent diabetes mellitus Marijuana use Restless legs Rheumatoid arthritis Seizure disorder Thyroid disease TIA (transient ischemic attack) Wears glasses Home Medications gabapentin 300 mg capsule (Neurontin) 800 mg PO TIDCM nerve pain 05/10/17 [History Last Taken 02/24/22 10:00] aspirin 81 mg tablet,delayed release 81 mg PO DAILY 02/20/22 [History Last Taken Unknown] clopidogrel 75 mg tablet (Plavix) 75 mg PO DAILY 02/20/22 [History Last Taken Unknown] cholecalciferol (vitamin D3) 1,250 mcg (50,000 unit) capsule 1,250 mcg PO QMONTH #12 caps 11/16/22 [Rx Last Taken Unknown] flash glucose sensor (FreeStyle Janee 2 Sensor kit) #6 ea 01/12/23 [Rx Last Taken Unknown] Mounjaro 15 mg/0.5 mL subcutaneous pen injector (tirzepatide) 15 mg (0.5 mL) subcut QWEEK #6 mL 03/18/23 [Rx Last Taken Unknown] Allergy/AdvReac Type Severity Reaction Status Date / Time Sulfa (Sulfonamide Allergy Intermediate Hives Verified 05/27/23 20:25 Antibiotics) Iodinated Contrast Media Allergy Mild Rash Verified 05/27/23 20:25 nortriptyline AdvReac Severe Other Verified 05/27/23 20:25 metformin AdvReac Intermediate Diarrhea Verified 05/27/23 20:25 morphine AdvReac Itching Verified 05/27/23 20:25 Family History Father GERD (gastroesophageal reflux disease) Mother Rheumatoid arthritis Other Anxiety Arthritis Autoimmune disorder Surgical History History of section History of esophagogastroduodenoscopy (EGD) History of surgery of uterus Hx of appendectomy S/P cholecystectomy S/P hysterectomy Status post left foot surgery Status post right foot surgery Social History household members: none Smoking Status: Never smoker alcohol intake: current alcohol intake frequency: holidays/special occasions only substance use type: does not use what type of physical activity do you participate in: walking frequency: 3-4 times per week ROS ROS ED Constitutional Constitutional ED: Denies chills, fever(s) or sweats Eyes Eyes: Denies blurry vision or change in vision ENT ENT ED: Denies ear pain or sore throat Cardiovascular Cardiovascular: Denies chest pain, palpitations or racing heartbeat Respiratory/Chest Respiratory/Chest: Reports dyspnea; Denies cough or sputum Gastrointestinal Gastrointestinal: Denies abdominal pain, constipation, diarrhea, nausea or vomiting Genitourinary Genitourinary ED: Denies dysuria, hematuria or urinary frequency Musculoskeletal Musculoskeletal: Denies arthralgias, myalgias or neck pain Integumentary Denies abscess, Abrasions or rash Neurologic Neurologic: Denies headache(s), paresthesias or weakness Psychiatric Psychiatric: Reports anxiety; Denies depression, suicidal ideation or suicidal thoughts Endocrine Endocrinology: Denies polydipsia or polyuria EXAM Physical Exam Const Vital Signs: 05/27/23 20:26 05/27/23 20:27 05/27/23 21:47 Temperature 97.7 F L Temperature Source Oral Pulse Rate 103 H Respiratory Rate 17 Respiratory Effort Short of Breath Blood Pressure 108/87 H Blood Pressure Mean 94 Pulse Ox 100 Oxygen Delivery Method Room Air Room Air Positive well nourished General Appearance ED: NAD HEENT Reports moist mucous membranes Eyes PERRL and EOMs intact bilaterally Resp normal respiratory effort and clear to auscultation bilaterally Auscultation: Negative for rales, rhonchi or wheezes Cardio regular rate and regular rhythm Neuro oriented x3 and CN's II-XII intact bilaterally Sensorium / Orientation: alert Motor Exam: strength 5/5 throughout Psych Mood & Affect: anxious Skin no wounds and skin turgor normal MDM MDM MDM Narrative Medical decision making narrative: Patient presenting with episodes of shortness of breath and she states that 5 this week. Differential includes ACS, pneumonia, anxiety, dehydration, anemia, electrolyte abnormalities. CBC will be obtained to assess white blood cell count, hemoglobin, platelets. BMP to assess renal function, electrolytes, glucose. High-sensitivity troponin EKG to assess for ischemia/dysrhythmia. Chest x-ray to rule out pneumonia. EKG on my interpretation shows a sinus rhythm at 104 bpm without sign of ischemic change. Chest x-ray my interpretation shows no acute process. CBC within normal limits. BMP shows mildly elevated creatinine of 1.20. High-sensitivity troponin is 6. Patient counseled her workup is ultimately negative. We discussed possibility that she could have anxiety and she does have a history of complex PTSD in the past. I recommended that she follow-up with her PCP to discuss this. I will give her some Vistaril to help with her symptoms. Return precautions discussed. Impression: 1 dyspnea 2. Anxiety Lab Data Attestation: I reviewed the patient's lab results. Labs: Laboratory Results - last 24 hr 05/27/23 20:40 WBC 5.9 RBC 5.17 Hgb 12.8 Hct 39.5 MCV 76.4 L MCH 24.8 L MCHC 32.4 RDW Std Deviation 37.0 RDW Coeff of Quentin 13.5 Plt Count 195 MPV 10.9 Immature Gran % (Auto) 0.300 Neut % (Auto) 32.1 L Lymph % (Auto) 57.6 H [place] % (Auto) 6.6 Eos % (Auto) 2.4 Baso % (Auto) 1.0 Absolute Neuts (auto) 1.9 L Absolute Lymphs (auto) 3.42 Nucleated RBC % 0 Atypical Lymphocytes 1+ Platelet Estimate ADEQUATE RBC Morphology N CHROM Anisocytosis 1+ Microcytosis 1+ Ovalocytes RARE Sodium 133 L Potassium 3.6 Chloride 99 Carbon Dioxide 24.0 Anion Gap 10 BUN 12 Creatinine 1.20 H Estim Creat Clear Calc 64.73 Est GFR (MDRD) Af Amer 64 Est GFR (MDRD) Non-Af 52 L BUN/Creatinine Ratio 10.0 Glucose 101 Calcium 9.5 Troponin I High Sens 6 Radiography Diagnostic Testing: Clinical Impression(s) from Imaging Studies Chest X-Ray 05/27/23 21:44 IMPRESSION: No radiographic evidence of acute cardiopulmonary disease. Electronically Signed: Bruno Redmond DO at 22:01 EST Reading Location ID and State: [facility] / [place] Tel [phone], Service support , Discharge Plan Triage Chief Complaint: Shortness of Breath ED Provider: Hima Garvin Dx/Rx/DC Orders Instructions: ED Anxiety Reaction, ED Dyspnea Prescriptions: No Action cholecalciferol (vitamin D3) 1,250 mcg (50,000 unit) capsule 1,250 mcg PO QMONTH Qty: 12 0RF gabapentin [Neurontin] 300 MG capsule 800 mg PO TIDCM clopidogrel [Plavix] 75 mg Tablet 75 mg PO DAILY aspirin 81 mg Tablet,Delayed Release (Dr/Ec) 81 mg PO DAILY (DME) FreeStyle Janee 2 Sensor Kit See Rx Instructions .Route Qty: 6 3RF Rx Instructions: As directed Mounjaro 15 mg/0.5 mL pen injector 15 mg subcut QWEEK Qty: 6 1RF Primary Care Provider: Jhonny Valladares Referrals: Jhonny Valladares MD [Primary Care Provider] - Disposition Disposition: Home, Self Care Capacity Legal Orthopedic Designer Reflex Medical hold order details:: IF a medical hold is selected below, a suggested order for a MEDICAL HOLD will reflex upon signing the document. Next of kin: [place] law dictates a PRIORITY LIST for identifying legal decision-maker/legal next of kin in the following order (LNOK): 1st: The patient?s legal guardian, if any 2nd: The patient's spouse (if status is questionable, consult Risk Management) 3rd: The patient?s adult child(sonu) (majority, if multiple children) 4th: The patient?s parents 5th: The patient?s adult siblings (majority, if multiple children siblings)
[2023-05-27 22:21] LABS: Anion Gap 10 (5-15); BUN 12 mg/dL (7-18); Calcium,Total 9.5 mg/dL (8.5-10.1); Chloride 99 mmol/L (98-107); EST Glomerular Filtration Rate 52 mL/min (>60); Est Glom Filt Rate - Afr Amer 64 mL/min (>60); Estimated Creatinine Clearance 64.73 ml/min; Glucose 101 mg/dL (74-106); Potassium 3.6 mmol/L (3.5-5.1); Sodium Level 133 mmol/L (136-145); Troponin-I HS 6 pg/mL (3.0-54.0)
[2023-05-27 22:30] VITALS: BP 119/82; PULSE 104; RESP 23
[2023-05-27 22:30] LABS: Platelet Estimate ADEQUATE (ADEQ); Red Cell Morphology N CHROM NORMAL (NORM C&C)
[2023-05-27 22:31] LABS: Anisocytosis 1+; Atypical Lymphocyte 1+ %; Microcytosis 1+
[2023-05-27 22:32] LABS: Ovalocyte RARE
[2023-05-27 22:45] VITALS: BP 107/76; PULSE 108; RESP 20
== END 2023-05-27 22:57 | disposition home or self-care (01) ==
PROVIDERS: Emergency Provider Student in an Organized Health Care Education/Training Program; PCP Family Medicine; Visit Provider Student in an Organized Health Care Education/Training Program
DX: R06.00 Dyspnea, unspecified (principal); G40.909 Epilepsy, unspecified, not intractable, without status epilepticus; Z79.4 Long term (current) use of insulin; E11.9 Type 2 diabetes mellitus without complications; F41.9 Anxiety disorder, unspecified; I10 Essential (primary) hypertension; Z86.73 Personal history of transient ischemic attack (TIA), and cerebral infarction without residual deficits; Z79.82 Long term (current) use of aspirin; Z79.02 Long term (current) use of antithrombotics/antiplatelets; Z79.899 Other long term (current) drug therapy; Z90.49 Acquired absence of other specified parts of digestive tract; Z90.710 Acquired absence of both cervix and uterus
CPT/HCPCS: 71045; 80048; 84484; 85025; 93005; 99284

== ENCOUNTER 2023-07-15 15:17 | Emergency (ER) | payer MEDICARE, MEDICAID, SELFPAY ==
[2023-07-15 15:18] VITALS: BP 79/50; PULSE 128; RESP 18; TEMP 37.1; O2SAT 98; BMI 25.8
--- NOTE | 2023-07-15 16:15 | EKG12_ITS ---
Test Reason : Blood Pressure : / mmHG Vent. Rate : 106 BPM Atrial Rate : 106 BPM P-R Int : 118 ms QRS Dur : 078 ms QT Int : 346 ms P-R-T Axes : 037 019 045 degrees QTc Int : 459 ms Sinus tachycardia Otherwise normal ECG Confirmed by Fam Castano ([id number]), newspaper editor SYMONE BLISS ([id number]) on 07/19/2023 2:09:40 PM Referred By: Confirmed By:Fam Castano
[2023-07-15 16:18] LABS: Internal QC Validated? YES +Cl - CLEAR BKGD; Pregnancy, Serum, hCG Quali. NEGATIVE Negative
--- NOTE | 2023-07-15 16:18 | EDS_ITS ---
HPI History of Present Illness Chief Complaint: Complaint Informant: patient Onset/Context/Timing Onset: Yesterday Context: Gradual Onset Timing: Continuous Quality: Stabbing Location: Bilateral flank area Worsened by: Nothing Relieved by: Nothing Narrative Narrative: Patient presents with bilateral flank pain, fevers, and chills that have been getting worse since yesterday. Patient went to the urgent care and was referred to the emergency department. Patient states she has stabbing pain over both flanks. Patient states nothing makes it better nothing makes it worse. Patient admits to some dysuria and urinary frequency. Patient admits to a fever up to 103. Patient denies any nausea or vomiting. Patient denies any chest pain or shortness of breath. [facility] Medical History Acne Anxiety AVM (arteriovenous malformation) brain Back pain Cardiology follow-up encounter Depression Dietary restriction Difficulty swallowing Epilepsy Fatty liver Fibromyalgia Gastroparesis Hepatitis History of echocardiogram History of hiatal hernia History of IBS HTN (hypertension) Insulin dependent diabetes mellitus Marijuana use Restless legs Rheumatoid arthritis Seizure disorder Thyroid disease TIA (transient ischemic attack) Wears glasses Home Medications gabapentin 300 mg capsule (Neurontin) 800 mg PO TIDCM nerve pain 05/10/17 [History Last Taken 02/24/22 10:00] aspirin 81 mg tablet,delayed release 81 mg PO DAILY 02/20/22 [History Last Taken Unknown] clopidogrel 75 mg tablet (Plavix) 75 mg PO DAILY 02/20/22 [History Last Taken Unknown] cholecalciferol (vitamin D3) 1,250 mcg (50,000 unit) capsule 1,250 mcg PO QMONTH #12 caps 11/16/22 [Rx Last Taken Unknown] flash glucose sensor (FreeStyle Janee 2 Sensor kit) #6 ea 01/12/23 [Rx Last Taken Unknown] Mounjaro 15 mg/0.5 mL subcutaneous pen injector (tirzepatide) 15 mg (0.5 mL) subcut QWEEK #6 mL 03/18/23 [Rx Last Taken Unknown] hydroxyzine pamoate 25 mg capsule (Vistaril) 25 mg PO TID PRN anxiety #30 caps 05/27/23 [Rx Last Taken Unknown] FreeStyle Janee 3 Sensor (blood-glucose sensor) #6 ea 06/28/23 [Rx Last Taken Unknown] nitrofurantoin monohydrate/macrocrystals 100 mg capsule 100 mg PO Q12 #14 CAPSULES 07/15/23 [Rx Last Taken Unknown] Allergy/AdvReac Type Severity Reaction Status Date / Time Sulfa (Sulfonamide Allergy Intermediate Hives Verified 06/14/23 13:38 Antibiotics) Iodinated Contrast Media Allergy Mild Rash Verified 06/14/23 13:38 nortriptyline AdvReac Severe Other Verified 06/14/23 13:38 metformin AdvReac Intermediate Diarrhea Verified 06/14/23 13:38 morphine AdvReac Itching Verified 06/14/23 13:38 Family History Father GERD (gastroesophageal reflux disease) Mother Rheumatoid arthritis Other Anxiety Arthritis Autoimmune disorder Surgical History History of section History of esophagogastroduodenoscopy (EGD) History of surgery of uterus Hx of appendectomy S/P cholecystectomy S/P hysterectomy Status post left foot surgery Status post right foot surgery Social History household members: none Smoking Status: Never smoker alcohol intake: current alcohol intake frequency: holidays/special occasions only substance use type: does not use what type of physical activity do you participate in: walking frequency: 3-4 times per week ROS ROS ED Constitutional Constitutional ED: Reports chills and fever(s) Eyes Eyes: Denies blurry vision or change in vision ENT ENT ED: Denies rhinorrhea or sore throat Cardiovascular Cardiovascular: Denies chest pain or palpitations Respiratory/Chest Respiratory/Chest: Denies cough or dyspnea Gastrointestinal Gastrointestinal: Denies nausea or vomiting Genitourinary Genitourinary ED: Reports dysuria and urinary frequency; Denies hematuria Musculoskeletal Musculoskeletal: Reports back pain; Denies neck pain Integumentary Denies abscess or rash Neurologic Neurologic: Reports headache(s); Denies weakness Allergic/Immunologic Allergic/Immunologic ED: Denies mouth swelling or urticaria EXAM Physical Exam Const Vital Signs: 07/15/23 15:18 07/15/23 16:41 07/15/23 16:41 Temperature 98.8 F Temperature Source Oral Pulse Rate 128 H 110 H Respiratory Rate 18 20 H Blood Pressure 79/50 L 102/60 Blood Pressure Mean 59 74 Pulse Ox 98 98 100 Oxygen Delivery Method Room Air Room Air 07/15/23 17:26 07/15/23 18:49 07/15/23 19:21 Temperature 98.5 F Temperature Source Oral Pulse Rate 106 H 93 95 Respiratory Rate 27 H 24 H 20 H Blood Pressure 107/73 120/71 96/72 Blood Pressure Mean 84 87 80 Pulse Ox 95 97 99 Oxygen Delivery Method Room Air Room Air Room Air Positive well nourished and well developed General Appearance ED: well developed and NAD HEENT Reports moist mucous membranes Neck supple and no JVD Resp normal respiratory effort and clear to auscultation bilaterally Cardio regular rhythm Rate: tachycardic GI non-tender and non-distended Palpation: soft Back/Spine General Back: CVA tenderness bilateral Neuro oriented x3, CN's II-XII intact bilaterally and no sensory deficits noted Sensorium / Orientation: alert Motor Exam: strength 5/5 throughout Psych mental status grossly normal MDM MDM MDM Narrative Medical decision making narrative: Differential diagnosis includes pyelonephritis, urinary tract infection, sepsis, electrolyte abnormality, dehydration, pneumonia, cardiac dysrhythmia, and . CBC will be obtained to assess for leukocytosis and anemia. Comprehensive metabolic profile will be obtained to assess for hepatic function, renal function, and electrolyte abnormality. Serum hCG will be obtained to assess for . Lactate will be obtained to assess for sepsis. Urinalysis will be obtained to assess for urinary tract infection and hematuria. PT with INR and PTT will be obtained to assess for coagulopathy. Blood cultures will be obtained to assess for sepsis. Urine culture will be obtained to assess for urinary tract infection. Chest x-ray will be obtained to assess for pneumonia. EKG will be obtained to assess for cardiac dysrhythmia. Lab Data Attestation: I reviewed the patient's lab results. Lab results narrative: CBC was reviewed. There is a mild leukocytosis of 13.1. Hemoglobin was 10.9 hematocrit was 33.5. Platelets were normal. PT was INR and PTT were reviewed. Pro time was 15.1 and INR is 1.2. PTT was normal at 33.4. Comprehensive metabolic profile was reviewed. Creatinine was slightly elevated at 1.24. This is similar to previous result. Serum lactate was reviewed and was normal at 1.3. Serum hCG was reviewed and was negative. Urinalysis was reviewed. Leukocyte esterase was 500 with positive nitrites. There were greater than 100 white blood cells and 2+ bacteria. Labs: Laboratory Results - last 24 hr 07/15/23 07/15/23 07/15/23 15:55 16:25 17:40 WBC 13.1 H RBC 4.46 Hgb 10.9 L Hct 33.5 L MCV 75.1 L MCH 24.4 L MCHC 32.5 RDW Std Deviation 41.4 RDW Coeff of Quentin 15.2 H Plt Count 227 MPV 9.8 Immature Gran % (Auto) 1.100 H Neut % (Auto) 74.8 H Lymph % (Auto) 15.5 L [place] % (Auto) 7.9 Eos % (Auto) 0.5 Baso % (Auto) 0.2 Absolute Neuts (auto) 9.8 H Absolute Lymphs (auto) 2.03 Nucleated RBC % 0 PT 15.1 H INR 1.2 APTT 33.4 Sodium 133 L Potassium 3.5 Chloride 98 Carbon Dioxide 25.0 Anion Gap 10 BUN 10 Creatinine 1.24 H Estim Creat Clear Calc 60.90 Est GFR (MDRD) Af Amer 61 Est GFR (MDRD) Non-Af 51 L BUN/Creatinine Ratio 8.1 L Glucose 209 H Lactic Acid 1.3 Calcium 8.5 Total Bilirubin 0.80 AST 12 L ALT 19 Alkaline Phosphatase 141 H Total Protein 7.6 Albumin 3.0 L Globulin 4.6 H Albumin/Globulin Ratio 0.7 L Serum , Qual NEGATIVE Urine Color [place] Urine Clarity Cloudy Urine pH 6.0 Ur Specific [place] 1.015 Urine Protein 100 H Urine Glucose (UA) Normal Urine Ketones 5 H Urine Occult Blood 250 H Urine Nitrite Positive H Urine Bilirubin 6 H Urine Urobilinogen 8 H Ur Leukocyte Esterase 500 H Urine RBC 5-10 SEEN Urine WBC >100 SEEN Ur Squamous Epith Cells 0 SEEN Urine Bacteria 2+ Urine Mucus 0 SEEN Radiography Diagnostic Testing: Clinical Impression(s) from Imaging Studies Chest X-Ray 07/15/23 16:45 IMPRESSION: No acute disease Electronically Signed: Fabricio Bowers MD at 17:49 EST , Portable 1 view chest x-ray was obtained. On my independent interpretation, lung cope are clear. There is normal cardiac silhouette. Bony thorax is normal. There is no acute process noted. Radiologist also interpreted the x- ray and agrees. EKG Initial EKG: Attestation: I personally reviewed and interpreted this EKG as follows: Interpretation: No Acute Injury Pattern and Sinus Tachycardia (106) Comments: EKG was obtained. On my independent interpretation, it showed a sinus tachycardia with a rate of 106. MO interval, QRS interval, and QTc intervals were all normal. Gate was normal. There are no acute ST or T wave changes. Prior EKG tracings: available for review Prior: Unchanged (05/27/2023) Treatment and Re-Evaluation :: Patient was given IV fluids and Tylenol. Patient is feeling better on reevaluation. Patient was advised of her findings. Patient was given a dose of Rocephin here. Patient was given a prescription for Macrobid. Patient was instructed to follow-up with her primary care physician in 3 to 5 days. Patient was instructed to return if worse in any way. Patient understood and was agreeable with the plan. All questions were answered. Discharge Plan Triage Chief Complaint: Complaint ED Provider: Justin Valenzuela Dx/Rx/DC Orders Clinical Impression: Urinary tract infection, Diabetes Instructions: ED Cystitis Female Adult Prescriptions: New nitrofurantoin monohyd/m-cryst [nitrofurantoin monohyd/m-cryst] 100 mg capsule 100 mg PO Q12 Qty: 14 0RF No Action cholecalciferol (vitamin D3) 1,250 mcg (50,000 unit) capsule 1,250 mcg PO QMONTH Qty: 12 0RF gabapentin [Neurontin] 300 MG capsule 800 mg PO TIDCM clopidogrel [Plavix] 75 mg Tablet 75 mg PO DAILY aspirin 81 mg Tablet,Delayed Release (Dr/Ec) 81 mg PO DAILY hydroxyzine pamoate [Vistaril] 25 mg capsule 25 mg PO TID PRN (Reason: anxiety) Qty: 30 0RF (DME) FreeStyle Janee 2 Sensor Kit See Rx Instructions .Route Qty: 6 3RF Rx Instructions: As directed Mounjaro 15 mg/0.5 mL pen injector 15 mg subcut QWEEK Qty: 6 1RF (DME) FreeStyle Janee 3 Sensor Device See Rx Instructions .Route Qty: 6 1RF Rx Instructions: As directed Primary Care Provider: Jhonny Valladares Referrals: Jhonny Valladares MD [Primary Care Provider] - 3-5 Days Disposition Disposition: Home, Self Care
[2023-07-15] MEDS: Acetaminophen 500 MG Tablet 1000 MG PO (16:33)
[2023-07-15] MEDS: 0.9% Normal Saline (1000mL) 1,000 ML 999 ML IV (16:34)
[2023-07-15 16:41] VITALS: BP 102/60; PULSE 110; RESP 20; O2SAT 100; O2SAT 98
--- NOTE | 2023-07-15 16:45 | RAD_ITS ---
STUDY: X-RAY CHEST REASON FOR EXAM: Female, 42 years old. Fever TECHNIQUE: Single frontal view of the chest. COMPARISON: May 27, 2023 FINDINGS: 18 mm Electronic device now projects over the left chest that of the right chest. This requires clinical correlation. The lungs are clear and expanded. There is no demonstrated pleural abnormality. Normal size heart. Normal mediastinum and jose daniel. Normal visualized pulmonary arteries. Normal visualized aortic arch and descending thoracic aorta. Normal visualized thoracic spine. Normal visualized ribs, clavicles, and shoulders. There is no demonstrated abnormality of the visualized soft tissue structures of the upper abdomen. RAD/Chest 1 View (Portable) IMPRESSION: No acute disease Electronically Signed: Fabricio Bowers MD at 17:49 EST ,
[2023-07-15 16:48] LABS: Absolute Lymphocyte Count 2.03 X10^3/uL (0.83-4.51); Absolute Neutrophil Count 9.8 X10^3/uL (2.0-7.7); Basophil# 0.03 X10^3/uL; Basophil% 0.2 % (0-1); Eosinophil# 0.06 X10^3/uL; Eosinophils% 0.5 % (0-5); Hematocrit 33.5 % (37-47); Hemoglobin 10.9 g/dL (12.0-15.0); Lymphocyte # 2.03 X10^3/ul (0.83-4.51); Lymphocyte % 15.5 % (19-41); Mean Corp Hgb Conc 32.5 g/dL (32-36); Mean Corpuscular Hgb 24.4 pg (27.0-32.0); Mean Corpuscular Volume 75.1 fL (81-99); Mean Platelet Vol. 9.8 fl (6.2-12.0); Monocyte# 1.04 X10^3/uL; Monocyte% 7.9 % (0-10); NRBC Flagged by Analyzer 0 % (0-5); Neutrophil # 9.79 X10^3/uL (2.7-7.7); Neutrophil % 74.8 % (47-70); Platelet Count 227 K/mm3 (150-450); RBC Distribution Width CV 15.2 % (11.6-14.6); RBC Distribution Width SD 41.4 fl (35.1-43.9); Red Blood Count 4.46 M/mm3 (4.2-5.4); White Blood Count 13.1 K/mm3 (4.4-11.0)
[2023-07-15 16:51] LABS: Partial Thromboplast Time 33.4 Seconds (24.1-36.2)
[2023-07-15 16:52] LABS: International Normalized Ratio 1.2; Prothrombin Time (Protime)PT. 15.1 SECONDS (11.7-14.9)
[2023-07-15 17:04] LABS: ALB/GLOB Ratio 0.7 RATIO (0.9-2.4); AST(SGOT) 12 U/L (15-37); Alanine Aminotransfer ALT/SGPT 19 U/L (13-56); Alkaline Phosphatase 141 U/L (45-117); Anion Gap 10 (5-15); BUN 10 mg/dL (7-18); BUN/Creat Ratio 8.1 RATIO (10-20); Calcium,Total 8.5 mg/dL (8.5-10.1); Chloride 98 mmol/L (98-107); Creatinine, Serum 1.24 mg/dL (0.55-1.02); EST Glomerular Filtration Rate 51 mL/min (>60); Est Glom Filt Rate - Afr Amer 61 mL/min (>60); Globulin 4.6 g/dL (2.2-4.2); Glucose 209 mg/dL (74-106); Potassium 3.5 mmol/L (3.5-5.1); Protein, Total 7.6 g/dL (6.4-8.2); Sodium Level 133 mmol/L (136-145)
[2023-07-15 17:11] LABS: Lactic Acid 1.3 mmol/L (0.4-1.9)
[2023-07-15 17:26] VITALS: BP 107/73; PULSE 106; RESP 27; O2SAT 95
[2023-07-15 17:45] LABS: Mucous, Urine 0 SEEN /hpf (<or=2+); Squamous Epithelial Cells - UA 0 SEEN /hpf (5-10)
[2023-07-15 18:03] LABS: Color, Urine Amber (Yellow); Glucose, Dipstick Normal (Normal); Ketone-Dipstick 5 mg/dl (Negative); Leukocyte Esterase-Dipstick 500 /ul (Negative); Nitrite-Dipstick Positive (Negative); Occult Blood-Urine 250 /ul (Negative); Protein-Dipstick 100 mg/dl (Negative); Specific Gravity, Urine 1.015 (1.002-1.030); Urine Clarity Cloudy (Clear); Urine Urobilinogen 8 mg/dl (Normal)
[2023-07-15 18:14] LABS: Urine Bilirubin Dipstick 6 mg/dL (Negative)
[2023-07-15 18:18] LABS: Bacteria 2+ /hpf (None Seen); White Blood Cells >100 SEEN /hpf (0-5)
[2023-07-15 18:19] LABS: Red Blood Cells-Urine 5-10 SEEN /hpf (0-5)
[2023-07-15 18:49] VITALS: BP 120/71; PULSE 93; RESP 24; O2SAT 97
[2023-07-15] MEDS: Ceftriaxone 1 GM/50 ML BAG IV (19:20)
[2023-07-15 19:21] VITALS: BP 96/72; PULSE 95; RESP 20; TEMP 36.9; O2SAT 99
[2023-07-15 19:52] VITALS: BP 108/62; PULSE 93; RESP 25; TEMP 36.9; O2SAT 96
--- NOTE | 2023-07-16 07:22 | ED.RN ---
PER LAB PT PRELIMINARY BLOOD CULTURE RESULT POSITIVE FOR GRAM NEGATIVE RODS. PT CHART PRINTED AND GIVEN TO MD FOR REVIEW.
--- NOTE | 2023-07-16 07:41 | ED.RN ---
PER DR. BALL CHART REVIEW, RECOMMENDED TO CONTACT PATIENT AND HAVE PT RETURN TO THE ED FOR RE-EVALUATION. THIS RN CALLED PATIENT AND INSTRUCTED HER OF BLOOD CULTURE PRELIMINARY RESULTS, AND RECOMMENDATION TO RETURN TO THE ER FOR RE-EVALUATION. PT REPORTS THAT SHE WILL BE COMING BACK TO ED.
== END 2023-07-15 19:56 | disposition home or self-care (01) ==
PROVIDERS: Emergency Provider Emergency Medicine; PCP Family Medicine; Visit Provider Emergency Medicine
DX: N39.0 Urinary tract infection, site not specified (principal); Z79.4 Long term (current) use of insulin; E11.9 Type 2 diabetes mellitus without complications; I10 Essential (primary) hypertension; Z86.73 Personal history of transient ischemic attack (TIA), and cerebral infarction without residual deficits; K75.9 Inflammatory liver disease, unspecified; Z79.02 Long term (current) use of antithrombotics/antiplatelets; Z79.82 Long term (current) use of aspirin; F41.9 Anxiety disorder, unspecified; Z90.49 Acquired absence of other specified parts of digestive tract; Z90.710 Acquired absence of both cervix and uterus
CPT/HCPCS: 99285; 71045; 80053; 81001; 83605; 84703; 85025; 85610; 85730; 87040; 87077; 87086; 87088; 87186; 93005; J7030; A4216

== ENCOUNTER 2023-07-16 08:31 | Inpatient (IN) | payer MEDICARE, MEDICAID, SELFPAY ==
[2023-07-16] VITALS (11 sets, daily range): BP systolic 111–147; BP diastolic 56–88; PULSE 76–117; RESP 15–18; TEMP 36.8–39.3; O2SAT 97–100; BMI 27.1; BMI 27.3
[2023-07-16] MEDS: 0.9% Normal Saline (1000mL) 1,000 ML 999 ML IV ×2 (09:05→12:02)
--- NOTE | 2023-07-16 09:10 | CT_ITS ---
INDICATION: flank pain EXAMINATION: CT ABDOMEN AND PELVIS WITHOUT CONTRAST TECHNIQUE: Helically acquired images were obtained of the abdomen and pelvis without oral or IV contrast. A radiation dose optimization technique was used for this scan. IV Contrast dosage and agent: None. Oral contrast: None. RADIATION DOSAGE (If Supplied By Facility): CTDIvol = ( 8.53 ) mGy, DLP = ( 449.50 ) mGycm COMPARISON: Prior study dated: 09/09/2013 FINDINGS: LOWER CHEST: Mild scarring in the right lung base. No cardiomegaly or pericardial effusion. LIVER: The liver is enlarged. No focal mass is seen without contrast. GALLBLADDER AND BILIARY TREE: Status post cholecystectomy. No intra- or extrahepatic biliary ductal dilation. PANCREAS: No focal cystic or solid mass. SPLEEN: Splenomegaly. The spleen measures about 15.5 cm in length. ADRENAL GLANDS: No nodules. KIDNEYS AND URETERS: Normal renal size and position. No hydronephrosis. Metallic density adjacent to the left renal hilar region. PERITONEUM: No ascites or free air. No other fluid collection. BOWEL: The appendix is visualized. Surgical clip is seen in the region of the cecum. Nonspecific fluid-filled small bowel loops without evidence of small bowel obstruction. No focal inflammatory change. LYMPH NODES: No enlarged mesenteric or retroperitoneal lymph nodes. VESSELS: Aorta is non-dilated. URINARY BLADDER: Unremarkable. REPRODUCTIVE ORGANS: No pelvic masses. Absent uterus consistent with previous hysterectomy.. ABDOMINAL WALL: Small umbilical hernia containing fat. Another ventral hernia superior to the umbilicus containing fat with the neck measuring about 3.8 cm. BONES: No lytic or blastic abnormality. CT/Abdomen/Pelvis without Cont IMPRESSION: 1. Nonspecific fluid-filled small bowel loops without evidence of bowel obstruction could reflect mild ileus or enteritis. 2. Persistent hepatosplenomegaly unchanged. 3. Otherwise no focal acute inflammatory process. 4. Ventral hernias containing fat. Electronically Signed: Wero Perez MD at 10:19 EST ,
[2023-07-16 09:15] LABS: Absolute Neutrophil Count 9.7 X10^3/uL (2.0-7.7); Basophil# 0.04 X10^3/uL; Basophil% 0.3 % (0-1); Eosinophil# 0.06 X10^3/uL; Eosinophils% 0.5 % (0-5); Hematocrit 35.6 % (37-47); Mean Corp Hgb Conc 30.9 g/dL (32-36); Mean Corpuscular Volume 77.7 fL (81-99); Mean Platelet Vol. 9.7 fl (6.2-12.0); Monocyte# 0.58 X10^3/uL; Monocyte% 4.8 % (0-10); NRBC Flagged by Analyzer 0 % (0-5); Neutrophil # 9.68 X10^3/uL (2.7-7.7); Neutrophil % 79.8 % (47-70); Platelet Count 179 K/mm3 (150-450); RBC Distribution Width CV 15.3 % (11.6-14.6); RBC Distribution Width SD 43.3 fl (35.1-43.9); Red Blood Count 4.58 M/mm3 (4.2-5.4); White Blood Count 12.1 K/mm3 (4.4-11.0)
--- NOTE | 2023-07-16 09:15 | EDS_ITS ---
HPI History of Present Illness Chief Complaint: Abn Labs Narrative Narrative: 42-year-old female called back to the ER for positive blood cultures. Patient was seen yesterday for bilateral flank pain, dysuria, fevers, chills. Patient ultimately found to have UTI and given a dose of Rocephin and Macrobid for home. She states she continues to have fevers at home and states her Tmax was 102 Fahrenheit last night. She has had fevers as high as 103 at home over the last few days. She states that the flank pain, dysuria all started happening a few days ago and did not start exactly the same time. Patient states that she has a distant history of kidney stones which had to be lasered . Patient states she felt better yesterday after leaving after IV fluids but states she does not feel like her baseline. Denies cough, shortness of breath. Denies chest pain. Denies concern for . [facility] Medical History Acne Anxiety AVM (arteriovenous malformation) brain Back pain Cardiology follow-up encounter Depression Dietary restriction Difficulty swallowing Epilepsy Fatty liver Fibromyalgia Gastroparesis Hepatitis History of echocardiogram History of hiatal hernia History of IBS HTN (hypertension) Insulin dependent diabetes mellitus Marijuana use Restless legs Rheumatoid arthritis Seizure disorder Thyroid disease TIA (transient ischemic attack) Wears glasses Home Medications gabapentin 300 mg capsule (Neurontin) 800 mg PO TIDCM nerve pain 05/10/17 [History Last Taken 07/15/23] aspirin 81 mg tablet,delayed release 81 mg PO DAILY 02/20/22 [History Last Taken 07/15/23] clopidogrel 75 mg tablet (Plavix) 75 mg PO DAILY 02/20/22 [History Last Taken 07/15/23] cholecalciferol (vitamin D3) 1,250 mcg (50,000 unit) capsule 1,250 mcg PO QMONTH #12 caps 11/16/22 [Rx Last Taken 06/24/23] flash glucose sensor (FreeStyle Janee 2 Sensor kit) #6 ea 01/12/23 [Rx Last Taken Unknown] Mounjaro 15 mg/0.5 mL subcutaneous pen injector (tirzepatide) 15 mg (0.5 mL) subcut QWEEK #6 mL 03/18/23 [Rx Last Taken 07/11/23] FreeStyle Janee 3 Sensor (blood-glucose sensor) #6 ea 06/28/23 [Rx Last Taken Unknown] Allergy/AdvReac Type Severity Reaction Status Date / Time Sulfa (Sulfonamide Allergy Intermediate Hives Verified 07/16/23 08:32 Antibiotics) Iodinated Contrast Media Allergy Mild Rash Verified 07/16/23 08:32 nortriptyline AdvReac Severe Other Verified 07/16/23 08:32 metformin AdvReac Intermediate Diarrhea Verified 07/16/23 08:32 morphine AdvReac Itching Verified 07/16/23 08:32 Family History Father GERD (gastroesophageal reflux disease) Mother Rheumatoid arthritis Other Anxiety Arthritis Autoimmune disorder Surgical History History of section History of esophagogastroduodenoscopy (EGD) History of surgery of uterus Hx of appendectomy S/P cholecystectomy S/P hysterectomy Status post left foot surgery Status post right foot surgery Social History household members: none Smoking Status: Never smoker alcohol intake: current alcohol intake frequency: holidays/special occasions only substance use type: does not use what type of physical activity do you participate in: walking frequency: 3-4 times per week ROS ROS ED Constitutional Constitutional ED: Reports chills and fever(s); Denies sweats Eyes Eyes: Denies blurry vision or change in vision ENT ENT ED: Denies ear pain or sore throat Cardiovascular Cardiovascular: Denies chest pain, palpitations or racing heartbeat Respiratory/Chest Respiratory/Chest: Denies cough, dyspnea or sputum Gastrointestinal Gastrointestinal: Reports nausea; Denies abdominal pain, constipation, diarrhea or vomiting Genitourinary Genitourinary ED: Denies dysuria, hematuria or urinary frequency Musculoskeletal Musculoskeletal: Reports back pain and myalgias; Denies arthralgias or neck pain Integumentary Denies abscess, Abrasions or rash Neurologic Neurologic: Denies headache(s), paresthesias or weakness Psychiatric Psychiatric: Denies anxiety, depression, suicidal ideation or suicidal thoughts Endocrine Endocrinology: Denies polydipsia or polyuria EXAM Physical Exam Const Vital Signs: 07/16/23 08:32 07/16/23 09:33 07/16/23 09:34 Temperature 98.2 F 98.9 F Temperature Source Temporal Oral Pulse Rate 106 H 88 Respiratory Rate 16 17 Respiratory Effort Normal Non-Labored Respiratory Pattern Normal Blood Pressure 113/88 H 135/72 H Blood Pressure Mean 96 93 Pulse Ox 99 97 Oxygen Delivery Method Room Air Room Air 07/16/23 10:00 Temperature 99.0 F Temperature Source Temporal Pulse Rate 104 H Respiratory Rate 18 Respiratory Effort Respiratory Pattern Blood Pressure 121/80 H Blood Pressure Mean 93 Pulse Ox 100 Oxygen Delivery Method Room Air Positive well nourished General Appearance ED: NAD; Negative for pallor HEENT Reports moist mucous membranes Eyes PERRL and EOMs intact bilaterally Neck no lymphadenopathy and supple Resp normal respiratory effort Auscultation: Negative for rales, rhonchi or wheezes Cardio regular rate Rate: tachycardic GI normal to inspection, nondistended, normoactive bowel sounds Back/Spine General Back: CVA tenderness bilateral Neuro oriented x3 and CN's II-XII intact bilaterally Sensorium / Orientation: alert Motor Exam: strength 5/5 throughout Psych mental status grossly normal Skin no rashes or lesions noted General Skin Exam: Negative for jaundice or pallor MDM MDM MDM Narrative Medical decision making narrative: Patient presenting with ongoing fevers of 102 Fahrenheit overnight. She was diagnosed with UTI yesterday. Blood cultures came back positive for gram- negative rods. Urine culture now shows gram-negative rods as well. This is likely bacteremia. Discussed with infectious disease (Dr. Moore). He did not recommend any repeat cultures. Recommended treating with Rocephin and giving IV fluids. Urinalysis repeated does not contaminated. CBC shows improving leukocytosis of 12.1. Hemoglobin 11.0, platelets 179. Patient given [place] for pain as she has allergy to morphine. She was given IV fluids. CT of the abdomen pelvis without contrast was obtained to rule out kidney stone and this does not show any stones. Therefore I do not believe this is a septic kidney stone. She does have nonspecific fluid filled bowel loops. She does not have any GI symptoms. At this point patient is admitted to the hospitalist in stable condition. Impression: 1. UTI 2. Bacteremia Lab Data Labs: Laboratory Results - last 24 hr 07/16/23 07/16/23 09:07 09:10 WBC 12.1 H RBC 4.58 Hgb 11.0 L Hct 35.6 L MCV 77.7 L MCH 24.0 L MCHC 30.9 L RDW Std Deviation 43.3 RDW Coeff of Quentin 15.3 H Plt Count 179 MPV 9.7 Immature Gran % (Auto) 0.600 Neut % (Auto) 79.8 H Lymph % (Auto) 14.0 L [place] % (Auto) 4.8 Eos % (Auto) 0.5 Baso % (Auto) 0.3 Absolute Neuts (auto) 9.7 H Absolute Lymphs (auto) 1.70 Nucleated RBC % 0 Sodium 134 L Potassium 3.5 Chloride 103 Carbon Dioxide 24.0 Anion Gap 7 BUN 13 Creatinine 1.13 H Estim Creat Clear Calc 68.53 Est GFR (MDRD) Af Amer 68 Est GFR (MDRD) Non-Af 56 L BUN/Creatinine Ratio 11.5 Glucose 206 H Calcium 8.4 L Urine Color Yellow Urine Clarity Sl. Cloudy Urine pH 6.0 Ur Specific [place] [employer] 1.015 Urine Protein 30 H Urine Glucose (UA) 50 H Urine Ketones Negative Urine Occult Blood 50 H Urine Nitrite Positive H Urine Bilirubin 3 H Urine Urobilinogen 4 H Ur Leukocyte Esterase 500 H Urine RBC 0-5 SEEN Urine WBC 25-50 SEEN Ur Squamous Epith Cells 10-25 SEEN Urine Bacteria 1+ Urine Mucus 0 SEEN Radiography Diagnostic Testing: Clinical Impression(s) from Imaging Studies Abdomen/Pelvis CT 07/16/23 09:10 IMPRESSION: 1. Nonspecific fluid-filled small bowel loops without evidence of bowel obstruction could reflect mild ileus or enteritis. 2. Persistent hepatosplenomegaly unchanged. 3. Otherwise no focal acute inflammatory process. 4. Ventral hernias containing fat. Electronically Signed: Wero Perez MD at 10:19 EST , Discharge Plan Triage Chief Complaint: Abn Labs ED Provider: Hima Garvin Dx/Rx/DC Orders Prescriptions: No Action cholecalciferol (vitamin D3) 1,250 mcg (50,000 unit) capsule 1,250 mcg PO QMONTH Qty: 12 0RF gabapentin [Neurontin] 300 MG capsule 800 mg PO TIDCM clopidogrel [Plavix] 75 mg Tablet 75 mg PO DAILY aspirin 81 mg Tablet,Delayed Release (Dr/Ec) 81 mg PO DAILY (DME) FreeStyle Janee 2 Sensor Kit See Rx Instructions .Route Qty: 6 3RF Rx Instructions: As directed Mounjaro 15 mg/0.5 mL pen injector 15 mg subcut QWEEK Qty: 6 1RF (DME) FreeStyle Janee 3 Sensor Device See Rx Instructions .Route Qty: 6 1RF Rx Instructions: As directed Primary Care Provider: Jhonny Valladares Referrals: Jhonny Valladares MD [Primary Care Provider] -
[2023-07-16] MEDS: HYDROcodone Bitartrate/Apap 5/325 Tablet PO (09:20)
[2023-07-16 09:28] LABS: Anion Gap 7 (5-15); BUN 13 mg/dL (7-18); BUN/Creat Ratio 11.5 RATIO (10-20); Calcium,Total 8.4 mg/dL (8.5-10.1); Chloride 103 mmol/L (98-107); Creatinine, Serum 1.13 mg/dL (0.55-1.02); EST Glomerular Filtration Rate 56 mL/min (>60); Est Glom Filt Rate - Afr Amer 68 mL/min (>60); Estimated Creatinine Clearance 68.53 ml/min; Glucose 206 mg/dL (74-106); Potassium 3.5 mmol/L (3.5-5.1); Sodium Level 134 mmol/L (136-145)
[2023-07-16 09:47] LABS: Mucous, Urine 0 SEEN /hpf (<or=2+)
[2023-07-16] MEDS: Ceftriaxone 1 GM/50 ML BAG IV ×2 (09:58→12:01)
[2023-07-16 09:59] LABS: Color, Urine Yellow (Yellow); Glucose, Dipstick 50 mg/dl (Normal); Ketone-Dipstick Negative (Negative); Leukocyte Esterase-Dipstick 500 /ul (Negative); Nitrite-Dipstick Positive (Negative); Occult Blood-Urine 50 /ul (Negative); Protein-Dipstick 30 mg/dl (Negative); Specific Gravity, Urine 1.015 (1.002-1.030); Urine Clarity Sl. Cloudy (Clear); Urine Urobilinogen 4 mg/dl (Normal)
[2023-07-16 10:02] LABS: Urine Bilirubin Dipstick 3 mg/dL (Negative)
[2023-07-16 10:08] LABS: Bacteria 1+ /hpf (None Seen); Red Blood Cells-Urine 0-5 SEEN /hpf (0-5); Squamous Epithelial Cells - UA 10-25 SEEN /hpf (5-10); White Blood Cells 25-50 SEEN /hpf (0-5)
--- NOTE | 2023-07-16 11:09 | PCM.HP.STD ---
HPI - General General Date of Admission: 07/16/23 Date of Service: 07/16/23 Chief Complaint: Gram-negative bacteremia from UTI HPI Narrative DELMY POLLACK, is a 42 F who presented to [facility] ED on 07/16/2023 for positive blood culture results. Patient seen at bedside in the floor shortly after arriving over from the ED. She was lying comfortably in bed but did appear fairly fatigued, otherwise was conversing normally and in no acute distress. Patient came to the ED yesterday with UTI-like symptoms and was found to have an infectious UA. She also had a mild leukocytosis, mildly elevated creatinine but otherwise normal lactic acid and was hemodynamically stable. She was given IV fluids and Tylenol and reported feeling better on reevaluation. Was given a dose of Rocephin in the ED and given a prescription for Macrobid and discharged home. Blood cultures were drawn and on 07/15 were preliminarily positive for gram-negative bacteremia, so patient was called and told to return to the ED. Patient currently states that she feels generally sick and fatigued. Reports ongoing bilateral low back pain and flank pain, similar to yesterday. She reports some nausea with no vomiting. Does not have much of an appetite. In the ED she was given 2 L of IV fluids and ceftriaxone, and was also given a dose of Percocet for the pain with moderate relief of pain. However she feels like the Percocet is worn off and her pain is returned. Patient denies any significant history of UTIs, last UTI was a few years ago. She denies any other recent concerns. No other acute concerns this time. Vitals on admit with mild tachycardia, low-grade fever, otherwise unremarkable. Labs notable for WBC count 12.1 K, hemoglobin 11 (at baseline), sodium 134, potassium 3.5, creatinine 1.13 (baseline 0.8-1.1), glucose 206. Chest x-ray was unremarkable. CT abdomen pelvis without contrast showed unremarkable bladder, no hydronephrosis, nonspecific fluid-filled small bowel loops without obstruction, otherwise was unremarkable. [facility] Medical History Acne Anxiety AVM (arteriovenous malformation) brain Back pain Cardiology follow-up encounter Depression Dietary restriction Difficulty swallowing Epilepsy Fatty liver Fibromyalgia Gastroparesis Hepatitis History of echocardiogram History of hiatal hernia History of IBS HTN (hypertension) Insulin dependent diabetes mellitus Marijuana use Restless legs Rheumatoid arthritis Seizure disorder Thyroid disease TIA (transient ischemic attack) Wears glasses Home Medications gabapentin 300 mg capsule (Neurontin) 800 mg PO TIDCM nerve pain 05/10/17 [History Last Taken 07/15/23] aspirin 81 mg tablet,delayed release 81 mg PO DAILY 02/20/22 [History Last Taken 07/15/23] clopidogrel 75 mg tablet (Plavix) 75 mg PO DAILY 02/20/22 [History Last Taken 07/15/23] cholecalciferol (vitamin D3) 1,250 mcg (50,000 unit) capsule 1,250 mcg PO QMONTH #12 caps 11/16/22 [Rx Last Taken 06/24/23] flash glucose sensor (FreeStyle Prasanth 2 Sensor kit) #6 ea 01/12/23 [Rx Last Taken Unknown] Mounjaro 15 mg/0.5 mL subcutaneous pen injector (tirzepatide) 15 mg (0.5 mL) subcut QWEEK #6 mL 03/18/23 [Rx Last Taken 07/11/23] FreeStyle Prasanth 3 Sensor (blood-glucose sensor) #6 ea 06/28/23 [Rx Last Taken Unknown] Allergy/AdvReac Type Severity Reaction Status Date / Time Sulfa (Sulfonamide Allergy Intermediate Hives Verified 07/16/23 08:32 Antibiotics) Iodinated Contrast Media Allergy Mild Rash Verified 07/16/23 08:32 nortriptyline AdvReac Severe Other Verified 07/16/23 08:32 metformin AdvReac Intermediate Diarrhea Verified 07/16/23 08:32 morphine AdvReac Itching Verified 07/16/23 08:32 Family History Father GERD (gastroesophageal reflux disease) Mother Rheumatoid arthritis Other Anxiety Arthritis Autoimmune disorder Surgical History History of section History of esophagogastroduodenoscopy (EGD) History of surgery of uterus Hx of appendectomy S/P cholecystectomy S/P hysterectomy Status post left foot surgery Status post right foot surgery Social History household members: none Smoking Status: Never smoker alcohol intake: current alcohol intake frequency: holidays/special occasions only substance use type: does not use what type of physical activity do you participate in: walking frequency: 3-4 times per week ROS Constitutional Constitutional: Reports chills, fatigue, fever(s) and malaise; Denies weakness Eyes Eyes: Denies change in vision Cardiovascular Cardiovascular: Denies chest pain or dyspnea on exertion Respiratory/Chest Respiratory/Chest: Denies cough or shortness of breath at rest Gastrointestinal Gastrointestinal: Reports nausea; Denies abdominal pain, constipation, diarrhea or vomiting Genitourinary Genitourinary: Reports burning urination, dysuria, urinary frequency and urinary urgency Musculoskeletal Musculoskeletal: Reports back pain; Denies arthralgias or myalgias Neurologic Neurologic: Denies dizziness, focal weakness or headache(s) Vital Signs Vital Signs Vital Signs: 07/16/23 08:32 07/16/23 09:33 07/16/23 09:34 Temperature 98.2 F 98.9 F Temperature Source Temporal Oral Pulse Rate 106 H 88 Respiratory Rate 16 17 Respiratory Effort Normal Non-Labored Respiratory Pattern Normal Blood Pressure 113/88 H 135/72 H Blood Pressure Mean 96 93 Pulse Ox 99 97 Oxygen Delivery Method Room Air Room Air 07/16/23 10:00 Temperature 99.0 F Temperature Source Temporal Pulse Rate 104 H Respiratory Rate 18 Respiratory Effort Respiratory Pattern Blood Pressure 121/80 H Blood Pressure Mean 93 Pulse Ox 100 Oxygen Delivery Method Room Air Weight Weight: 76.702 kg Body Mass Index (BMI) 27.1 Physical Exam Const alert, oriented x3, no apparent distress and average body habitus Constitutional Narrative: Pleasant middle-age female, laying comfortably in bed, fatigued and somewhat ill-appearing, otherwise conversing normally and in no acute distress. General Appearance: cooperative and comfortable HEENT normocephalic, head/scalp atraumatic, hearing grossly normal bilaterally and nasal mucous membranes and turbinates normal Eyes PERRL, EOMs intact bilaterally and conjunctivae normal Neck full ROM Chest inspection of chest normal Resp normal respiratory effort, normal air movement, no use of accessory muscles and clear to auscultation bilaterally Cardio regular rate, regular rhythm, no murmurs and peripheral pulses 2+ throughout GI normal to inspection, nondistended, normoactive bowel sounds, soft to palpation, non-tender and non-distended Back/Spine normal ROM Back/Spine Narrative: Mild tenderness to palpation in bilateral flank regions. Extremity normal to inspection, full ROM and no pedal edema Skin no rashes or lesions noted Neuro moves all extremities and no focal motor deficits Speech: speech normal Psych mental status grossly normal Results Lab / Micro Data 07/16/23 09:07 07/16/23 09:07 Labs: Laboratory Results - last 24 hr 07/16/23 09:07: WBC 12.1 H, RBC 4.58, Hgb 11.0 L, Hct 35.6 L, MCV 77.7 L, MCH 24.0 L, MCHC 30.9 L, RDW Std Deviation 43.3, RDW Coeff of Quentin 15.3 H, Plt Count 179, MPV 9.7, Immature Gran % (Auto) 0.600, Neut % (Auto) 79.8 H, Lymph % (Auto) 14.0 L, [place] % (Auto) 4.8, Eos % (Auto) 0.5, Baso % (Auto) 0.3, Absolute Neuts (auto) 9.7 H, Absolute Lymphs (auto) 1.70, Nucleated RBC % 0, Sodium 134 L, Potassium 3.5, Chloride 103, Carbon Dioxide 24.0, Anion Gap 7, BUN 13, Creatinine 1.13 H, Estim Creat Clear Calc 68.53, Est GFR (MDRD) Af Amer 68, Est GFR (MDRD) Non-Af 56 L, BUN/Creatinine Ratio 11.5, Glucose 206 H, Calcium 8.4 L 07/16/23 09:10: Urine Color Yellow, Urine Clarity Sl. Cloudy, Urine pH 6.0, Ur Specific [place] 1.015, Urine Protein 30 H, Urine Glucose (UA) 50 H, Urine Ketones Negative, Urine Occult Blood 50 H, Urine Nitrite Positive H, Urine Bilirubin 3 H, Urine Urobilinogen 4 H, Ur Leukocyte Esterase 500 H, Urine RBC 0-5 SEEN, Urine WBC 25-50 SEEN, Ur Squamous Epith Cells 10-25 SEEN, Urine Bacteria 1+, Urine Mucus 0 SEEN Imaging Radiology Impression Abdomen/Pelvis CT 07/16/23 09:10 IMPRESSION: 1. Nonspecific fluid-filled small bowel loops without evidence of bowel obstruction could reflect mild ileus or enteritis. 2. Persistent hepatosplenomegaly unchanged. 3. Otherwise no focal acute inflammatory process. 4. Ventral hernias containing fat. Electronically Signed: Wero Perez MD at 10:19 EST , Assessment & Plan Assessment/Plan (1) Urinary tract infection: (2) Gram-negative bacteremia: PLAN: Plan Patient is a 42-year-old female who presented to [facility] ED on 07/16/2023 for positive blood cultures secondary to UTI. 1. Gram-negative bacteremia secondary to UTI, sepsis ruled out ? Initially presented to ED on 07/14 with bilateral flank pain and dysuria. UA showed positive nitrites, 500 leukocyte esterase, greater than 100 white blood cells, 2+ bacteria. Had mild leukocytosis and low-grade fever, otherwise hemodynamically stable. Improved with IV fluids and Tylenol, given dose of ceftriaxone and discharged on Macrobid. ? Blood cultures noted to be preliminarily positive for gram-negative bacteria on 07/15, urine culture also growing gram-negative bacteria. ? Mild tachycardia in ED and low-grade fever to 99.0 F, mild leukocytosis of 12 K, mildly elevated creatinine of 1.1; otherwise hemodynamically stable. Did not meet sepsis criteria. ? CT abdomen pelvis showed normal bladder, no evidence of hydronephrosis. ? Given 2 L IV fluids and ceftriaxone 2 g in the ED. ED physician notably discussed with ID over the phone, okay to continue ceftriaxone. ? Admit under inpatient status to PCU. Continue ceftriaxone. Follow-up blood cultures and urine culture final results. Encouraged p.o. intake. Monitor CBC daily. 2. Bilateral low back/flank pain ? Presumed secondary to urinary tract infection. Treat with Tylenol as needed first, then given elevated creatinine will treat breakthrough pain with oxycodone 5 mg every 4 hours as needed for now. Monitor. 3. Mild creatinine elevation ? Creatinine 1.13 on admit, baseline creatinine appears to be 0.8-1.0. Given normal CT abdomen pelvis, no concern for postobstructive etiology. Very likely prerenal secondary to UTI with bacteremia. Given IV fluids in the ED as noted above. Monitor BMP and urine output daily. 4. Type 2 diabetes mellitus with mild hyperglycemia ? Follows with Dr. Bonilla's endocrinology office. Currently on only Mounjaro weekly, most recent A1c 6.2% on 06/14/2023. Glucose 206 on admit. Will start sliding-scale insulin with meals while inpatient, adjust as needed. Patient okay to use her own freestyle prasanth for glucose checks. Chronic medical conditions: ? History of seizure disorder: Continue home high-dose gabapentin. ? History of TIA: Continue home aspirin and statin. DVT prophylaxis: Lovenox CODE STATUS: Full code, verified Expected disposition: Home, 2 to 3 days Total clinical time spent by myself addressing the patient's medical issues, reviewing all the data, and collaborating with patient's care team: 35 minutes. Sepsis Attestation Sepsis Attestation: Sepsis Ruled Out Date exam was performed: 07/16/23 Time exam was performed: 13:00 Possible Source of Sepsis: Genitourinary Sepsis Organ Dysfunction Criteria Present: None Charges/Coding Visit Charges Inpatient E&M: 10072 Init Hosp L2
--- NOTE | 2023-07-16 12:12 | CASEMGMT ---
Social Work As per admitting RN, pt does not have LW/POA and declined further information. [place] Balderrama
[2023-07-16] MEDS: Gabapentin 400 MG Capsule 800 MG PO ×2 (14:08→17:52)
[2023-07-16 14:23] LABS: Bedside Glucose 157 mg/dL (74-106)
[2023-07-16] MEDS: Acetaminophen 325 MG Tablet 650 MG PO ×2 (15:00→22:44)
[2023-07-16] MEDS: oxyCODONE 5 MG Tablet PO ×2 (16:03→21:45)
[2023-07-16] MEDS: Ondansetron 4 MG/2 ML Vial IV (16:11)
[2023-07-16] MEDS: HYDROmorphone 0.5 MG/0.5 ML SYRINGE IV (17:42)
[2023-07-16] MEDS: Insulin Lispro 100 UNIT/ML INSULN.PEN SC (21:38)
--- NOTE | 2023-07-16 22:30 | NURSING ---
pt checked blood glucose with freestyle prasanth 221
[2023-07-17] VITALS (7 sets, daily range): BP systolic 100–138; BP diastolic 61–89; PULSE 82–103; RESP 16–18; TEMP 36.1–37.8; O2SAT 95–99
[2023-07-17] MEDS: Acetaminophen 325 MG Tablet 650 MG PO ×3 (06:43→23:57)
[2023-07-17 06:55] LABS: Bedside Glucose 105 mg/dL (74-106)
[2023-07-17 08:07] LABS: Hematocrit 34.3 % (37-47); Hemoglobin 10.9 g/dL (12.0-15.0); Mean Corp Hgb Conc 31.8 g/dL (32-36); Mean Corpuscular Hgb 24.9 pg (27.0-32.0); Mean Corpuscular Volume 78.5 fL (81-99); Mean Platelet Vol. 9.6 fl (6.2-12.0); Platelet Count 196 K/mm3 (150-450); RBC Distribution Width CV 15.4 % (11.6-14.6); RBC Distribution Width SD 44.2 fl (35.1-43.9); Red Blood Count 4.37 M/mm3 (4.2-5.4); White Blood Count 9.9 K/mm3 (4.4-11.0)
[2023-07-17 08:36] LABS: Anion Gap 5 (5-15); BUN 11 mg/dL (7-18); BUN/Creat Ratio 11.1 RATIO (10-20); Calcium,Total 8.8 mg/dL (8.5-10.1); Chloride 106 mmol/L (98-107); Creatinine, Serum 0.99 mg/dL (0.55-1.02); EST Glomerular Filtration Rate 65 mL/min (>60); Est Glom Filt Rate - Afr Amer 79 mL/min (>60); Estimated Creatinine Clearance 78.31 ml/min; Glucose 138 mg/dL (74-106); Potassium 3.3 mmol/L (3.5-5.1); Sodium Level 137 mmol/L (136-145)
[2023-07-17] MEDS: 0.9% Saline Lock 10 ML Syringe IV (08:42)
[2023-07-17] MEDS: Gabapentin 400 MG Capsule 800 MG PO ×3 (08:42→16:52)
[2023-07-17] MEDS: Enoxaparin 40 MG/0.4 ML Syringe SC (08:43)
[2023-07-17] MEDS: Ceftriaxone 2 GM in 0.9% Normal Saline (50mL MB+) 50 ML IV (08:43)
[2023-07-17] MEDS: Clopidogrel Bisulfate 75 MG Tablet PO (08:43)
[2023-07-17 09:17] LABS: Bedside Glucose 166 mg/dL (74-106)
[2023-07-17] MEDS: Insulin Lispro 100 UNIT/ML INSULN.PEN SC ×2 (11:29→20:06)
[2023-07-17] MEDS: Potassium Chloride Oral Tablet 20 MEQ 40 MEQ PO (11:29)
[2023-07-17] MEDS: Aspirin E.C. 81 MG Tablet PO (11:31)
--- NOTE | 2023-07-17 12:44 | CASEMGMT ---
RN CM Assessment: Face to Face with pt for initial transition planning/care coordination assessment. RN CM introduced self and role at [facility], pt voices understanding and consents to assessment. Pt is A&O x4, resting in bed, and answers all questions appropriately at this time. Care providers, pharmacy, and demographics verified/updated. Admitting Dx: Gram negative bacteremia due to UTI PCP:Dr. Garvin Specialists: Dr. Ford with neurology and Dr. Bonilla with endo Preferred Pharmacy: [facility] in [place] [facility]: yes LNOK: Miguel Nassar [phone] Living Arrangements: Pt lives at home, alone and is independent at baseline. Pt is employed. Transportation: Pt drives self and denies concerns with transportation. DME: None HHC/SNF: None Pt states no concerns with going home at time of dc. Pt states no further concerns/needs. CM to follow. Advised pt to ask CM if any further question/concerns/needs arise, voices understanding. Pt Goal: Home Plan: Home Anika Reyes MSN, RN, CCM
--- NOTE | 2023-07-17 13:05 | PN.HOSP_ITS ---
Reason for Visit Reason for Visit: Diagnoses Urinary tract infection, site not specified (07/16/23) Bacteremia (07/16/23) Subjective Subjective Yesterday afternoon and overnight, patient had some fevers and chills and did have a few episodes of nausea with vomiting. Patient seen at bedside this morning. States that she feels fatigued this morning but denies any fevers or chills and generally feels a little better than yesterday. She has been able to keep fluids down this morning. She states the low-dose oxycodone for her pain has been helpful. Denies any other acute concerns at this time. Objective Data Objective Data Vital Signs: Vital Signs Temp Pulse Resp BP Pulse Ox O2 Del Method 97.0 F L 103 H 16 118/61 97 Room Air 07/17/23 11:34 07/17/23 08:00 07/17/23 08:00 07/17/23 08:00 07/17/23 08:00 07/17/23 08:00 Oxygen Delivery Method Room Air Weight: 76.884 kg Body Mass Index (BMI) 27.3 Intake & Output: Intake and Output for Last 24 Hours 07/15/23 07/16/23 07/17/23 23:59 23:59 23:59 Intake Total 2980 / 2980 50 / 50 Output Total 500 / 500 Balance 2480 / 2480 50 / 50 Lab / Micro Data 07/17/23 07:07 07/17/23 07:07 Labs: Laboratory Results - last 24 hr 07/16/23 14:02: POC Glucose 157 H 07/17/23 06:33: POC Glucose 105 07/17/23 07:07: WBC 9.9, RBC 4.37, Hgb 10.9 L, Hct 34.3 L, MCV 78.5 L, MCH 24.9 L, MCHC 31.8 L, RDW Std Deviation 44.2 H, RDW Coeff of Quentin 15.4 H, Plt Count 196, MPV 9.6, Sodium 137, Potassium 3.3 L, Chloride 106, Carbon Dioxide 26.0, Anion Gap 5, BUN 11, Creatinine 0.99, Estim Creat Clear Calc 78.31, Est GFR (MDRD) Af Amer 79, Est GFR (MDRD) Non-Af 65, BUN/Creatinine Ratio 11.1, Glucose 138 H, Calcium 8.8 07/17/23 08:58: POC Glucose 166 H Physical Exam Const alert, oriented x3, no apparent distress and average body habitus Constitutional Narrative: Pleasant middle-age female, laying comfortably in bed, fatigued and somewhat ill-appearing, otherwise conversing normally and in no acute distress. General Appearance: cooperative and comfortable HEENT normocephalic, head/scalp atraumatic, hearing grossly normal bilaterally and nasal mucous membranes and turbinates normal Eyes PERRL, EOMs intact bilaterally and conjunctivae normal Neck full ROM Chest inspection of chest normal Resp normal respiratory effort, normal air movement, no use of accessory muscles and clear to auscultation bilaterally Cardio regular rate, regular rhythm, no murmurs and peripheral pulses 2+ throughout GI normal to inspection, nondistended, normoactive bowel sounds, soft to palpation, non-tender and non-distended Back/Spine normal ROM Back/Spine Narrative: Mild tenderness to palpation in bilateral flank regions. Extremity normal to inspection, full ROM and no pedal edema Skin no rashes or lesions noted Neuro moves all extremities and no focal motor deficits Speech: speech normal Psych mental status grossly normal Assessment & Plan Assessment/Plan (1) Urinary tract infection: (2) Gram-negative bacteremia: PLAN: Plan Patient is a 42-year-old female who presented to [facility] ED on 07/16/2023 for positive blood cultures secondary to UTI. 1. Gram-negative bacteremia secondary to UTI, sepsis ruled out ? Initially presented to ED on 07/14 with bilateral flank pain and dysuria. UA showed positive nitrites, 500 leukocyte esterase, greater than 100 white blood cells, 2+ bacteria. Had mild leukocytosis and low-grade fever, otherwise hemodynamically stable. Improved with IV fluids and Tylenol, given dose of ceftriaxone and discharged on Macrobid. ? Blood cultures noted to be preliminarily positive for gram-negative bacteria on 07/15. Urine culture growing E. coli sensitive to ceftriaxone. ? Mild tachycardia in ED and low-grade fever to 99.0 F, mild leukocytosis of 12 K, mildly elevated creatinine of 1.1; otherwise hemodynamically stable. Did not meet sepsis criteria. ? CT abdomen pelvis showed normal bladder, no evidence of hydronephrosis. ? Given 2 L IV fluids and ceftriaxone 2 g in the ED. ED physician notably discussed with ID over the phone, okay to continue ceftriaxone. ? Continue ceftriaxone, planning for likely 7 to 10-day course of antibiotics total. Continuing to encourage p.o. intake. 2. Bilateral low back/flank pain ? Presumed secondary to urinary tract infection. Treat with Tylenol as needed first, then given elevated creatinine will treat breakthrough pain with oxycodone 5 mg every 4 hours as needed for now. Monitor. 3. Mild creatinine elevation, resolved ? Creatinine 1.13 on admit, baseline creatinine appears to be 0.8-1.0. Given normal CT abdomen pelvis, no concern for postobstructive etiology. Very likely prerenal secondary to UTI with bacteremia. Given IV fluids in the ED as noted above, repeat creatinine 0.99 on 07/16. Monitor BMP and urine output daily. 4. Type 2 diabetes mellitus with mild hyperglycemia ? Follows with Dr. Bonilla's endocrinology office. Currently on only Mounjaro weekly, most recent A1c 6.2% on 06/14/2023. Glucose 206 on admit. Continue sliding-scale insulin with meals while inpatient, adjust as needed. Patient bennie olivares to use her own [employer] prasanth for glucose checks. Chronic medical conditions: ? History of seizure disorder: Continue home high-dose gabapentin. ? History of TIA: Continue home aspirin and statin. DVT prophylaxis: Lovenox CODE STATUS: Full code, verified Expected disposition: Home, 1 to 2 days Total clinical time spent by myself addressing the patient's medical issues, reviewing all the data, and collaborating with patient's care team: 35 minutes. Charges/Coding Visit Charges Inpatient E&M: 51050 Subs Hosp L2
[2023-07-17] MEDS: oxyCODONE 5 MG Tablet PO (20:05)
[2023-07-18 03:18] VITALS: BP 130/76; PULSE 103; RESP 18; TEMP 36.8; O2SAT 96
[2023-07-18 06:54] LABS: Hematocrit 29.7 % (37-47); Hemoglobin 9.2 g/dL (12.0-15.0); Mean Corpuscular Hgb 24.8 pg (27.0-32.0); Mean Corpuscular Volume 80.1 fL (81-99); Mean Platelet Vol. 10.4 fl (6.2-12.0); Platelet Count 183 K/mm3 (150-450); RBC Distribution Width CV 15.8 % (11.6-14.6); RBC Distribution Width SD 45.8 fl (35.1-43.9); Red Blood Count 3.71 M/mm3 (4.2-5.4); White Blood Count 4.5 K/mm3 (4.4-11.0)
[2023-07-18 07:11] LABS: Anion Gap 6 (5-15); BUN 13 mg/dL (7-18); BUN/Creat Ratio 14.9 RATIO (10-20); Calcium,Total 8.3 mg/dL (8.5-10.1); Chloride 106 mmol/L (98-107); Creatinine, Serum 0.87 mg/dL (0.55-1.02); EST Glomerular Filtration Rate 76 mL/min (>60); Est Glom Filt Rate - Afr Amer 92 mL/min (>60); Estimated Creatinine Clearance 89.11 ml/min; Glucose 147 mg/dL (74-106); Potassium 3.6 mmol/L (3.5-5.1); Sodium Level 139 mmol/L (136-145)
[2023-07-18] MEDS: Acetaminophen 325 MG Tablet 650 MG PO (08:12)
[2023-07-18] MEDS: Gabapentin 400 MG Capsule 800 MG PO ×3 (08:12→16:12)
[2023-07-18] MEDS: Aspirin E.C. 81 MG Tablet PO (08:13)
[2023-07-18] MEDS: Clopidogrel Bisulfate 75 MG Tablet PO (08:13)
[2023-07-18] MEDS: Enoxaparin 40 MG/0.4 ML Syringe SC (08:13)
[2023-07-18 08:16] VITALS: BP 122/82; PULSE 91; RESP 16; TEMP 36.7; O2SAT 100
[2023-07-18 09:29] LABS: Ferritin 161 ng/mL (8-252); Iron 14 ug/dL (50-170); Iron Binding Capacity,Total 160 ug/dL (250-450); PERCENT IRON SATURATION 8.8 % (15.0-55.0)
[2023-07-18] MEDS: TIRZEPATIDE 15 MG/0.5 ML SC (10:06)
[2023-07-18] MEDS: Ceftriaxone 2 GM in 0.9% Normal Saline (50mL MB+) 50 ML IV (10:06)
--- NOTE | 2023-07-18 12:05 | PN.HOSP_ITS ---
Reason for Visit Reason for Visit: Diagnoses Urinary tract infection, site not specified (07/16/23) Bacteremia (07/16/23) Subjective Subjective No acute events overnight. Patient seen at bedside this morning. Patient continued to appear mild to moderately fatigued this morning, similar to yesterday. She denied any episodes of fevers or chills overnight. No episodes of nausea or vomiting. She still does not feel like she is back to her baseline but does feel better than on admission. She denies ever having any dark or bloody stools. No other acute concerns at this time. Objective Data Objective Data Vital Signs: Vital Signs Temp Pulse Resp BP Pulse Ox O2 Del Method 98.1 F 91 16 122/82 H 100 Room Air 07/18/23 08:16 07/18/23 08:16 07/18/23 08:16 07/18/23 08:16 07/18/23 08:16 07/18/23 08:16 Oxygen Delivery Method Room Air Weight: 76.884 kg Body Mass Index (BMI) 27.3 Intake & Output: Intake and Output for Last 24 Hours 07/16/23 07/17/23 07/19/23 23:59 23:59 00:59 Intake Total 2980 / 2980 800 / 800 50 / 50 Output Total 500 / 500 Balance 2480 / 2480 800 / 800 50 / 50 Lab / Micro Data 07/18/23 05:35 07/18/23 05:35 Labs: Laboratory Results - last 24 hr 07/18/23 05:35: WBC 4.5, RBC 3.71 L, Hgb 9.2 L, Hct 29.7 L, MCV 80.1 L, MCH 24.8 L, MCHC 31.0 L, RDW Std Deviation 45.8 H, RDW Coeff of Quentin 15.8 H, Plt Count 183, MPV 10.4, Sodium 139, Potassium 3.6, Chloride 106, Carbon Dioxide 27.0, Anion Gap 6, BUN 13, Creatinine 0.87, Estim Creat Clear Calc 89.11, Est GFR (MD BOYCE) Af Amer 92, Est GFR (MDRD) Non-Af 76, BUN/Creatinine Ratio 14.9, Glucose 147 H, Calcium 8.3 L, Iron 14 L, TIBC 160 L, Iron Saturation 8.8 L, Ferritin 161, Folate 4.10 Physical Exam Const alert, oriented x3, no apparent distress and average body habitus Constitutional Narrative: Pleasant middle-age female, laying comfortably in bed, fatigued and somewhat ill-appearing, otherwise conversing normally and in no acute distress. General Appearance: cooperative and comfortable HEENT normocephalic, head/scalp atraumatic, hearing grossly normal bilaterally and nasal mucous membranes and turbinates normal Eyes PERRL, EOMs intact bilaterally and conjunctivae normal Neck full ROM Chest inspection of chest normal Resp normal respiratory effort, normal air movement, no use of accessory muscles and clear to auscultation bilaterally Cardio regular rate, regular rhythm, no murmurs and peripheral pulses 2+ throughout GI normal to inspection, nondistended, normoactive bowel sounds, soft to palpation, non-tender and non-distended Back/Spine normal ROM; Negative for no CVA tenderness Extremity normal to inspection, full ROM and no pedal edema Skin no rashes or lesions noted Neuro moves all extremities and no focal motor deficits Speech: speech normal Psych mental status grossly normal Assessment & Plan Assessment/Plan (1) Urinary tract infection: (2) Gram-negative bacteremia: PLAN: Plan Patient is a 42-year-old female who presented to [facility] ED on 07/16/2023 for positive blood cultures secondary to UTI. 1. Gram-negative bacteremia secondary to UTI, sepsis ruled out ? Initially presented to ED on 07/14 with bilateral flank pain and dysuria. UA showed positive nitrites, 500 leukocyte esterase, greater than 100 white blood cells, 2+ bacteria. Had mild leukocytosis and low-grade fever, otherwise hemo dynamically stable. Improved with IV fluids and Tylenol, given dose of ceftriaxone and discharged on Macrobid. ? Blood cultures noted to be preliminarily positive for gram-negative bacteria on 07/15. Urine culture growing E. coli sensitive to ceftriaxone. ? Mild tachycardia in ED and low-grade fever to 99.0 F, mild leukocytosis of 12 K, mildly elevated creatinine of 1.1; otherwise hemodynamically stable. Did not meet sepsis criteria. ? CT abdomen pelvis showed normal bladder, no evidence of hydronephrosis. ? Given 2 L IV fluids and ceftriaxone 2 g in the ED. ED physician notably discussed with ID over the phone, okay to continue ceftriaxone. ? Continue ceftriaxone for now. ID consulted for antibiotic recommendations on discharge. 2. Bilateral low back/flank pain, improving ? Presumed secondary to urinary tract infection. Treat with Tylenol as needed first, then given elevated creatinine will treat breakthrough pain with oxycodone 5 mg every 4 hours as needed for now. Monitor. 3. Mild creatinine elevation, resolved ? Creatinine 1.13 on admit, baseline creatinine appears to be 0.8-1.0. Given normal CT abdomen pelvis, no concern for postobstructive etiology. Very likely prerenal secondary to UTI with bacteremia. Given IV fluids in the ED as noted above, repeat creatinine 0.99 on 07/16. Monitor BMP and urine output daily. 4. Type 2 diabetes mellitus with mild hyperglycemia ? Follows with Dr. Bonilla's endocrinology office. Currently on only Mounjaro weekly, most recent A1c 6.2% on 06/14/2023. Glucose 206 on admit. Continue sliding-scale insulin with meals while inpatient, adjust as needed. Patient okay to use her own [employer] prasanth for glucose checks. 5. Acute on chronic anemia ? Hemoglobin 10.9 on admit, baseline hemoglobin appears to be around 12-13. Hemoglobin stable around 11 until 07/17 when it decreased to 9.2. Iron studies are consistent with a mild iron deficiency anemia. Patient denies any dark or bloody stools. Unclear if she is still having menstrual cycles. ? Will start p.o. iron supplement daily. Monitor CBC daily. Chronic medical conditions: ? History of seizure disorder: Continue home high-dose gabapentin. ? History of TIA: Continue home aspirin and statin. DVT prophylaxis: Lovenox CODE STATUS: Full code, verified Expected disposition: Home, 1 to 2 days Total clinical time spent by myself addressing the patient's medical issues, reviewing all the data, and collaborating with patient's care team: 35 minutes. Charges/Coding Visit Charges Inpatient E&M: 44876 Subs Hosp L2
[2023-07-18 15:00] VITALS: BP 117/87; PULSE 93; RESP 16; TEMP 37.2; O2SAT 98
[2023-07-18 21:09] VITALS: BP 131/89; PULSE 105; RESP 18; TEMP 36.9; O2SAT 95
[2023-07-19 03:01] VITALS: BP 137/80; PULSE 95; RESP 18; TEMP 37.3; O2SAT 96
[2023-07-19 05:06] LABS: Hematocrit 29.9 % (37-47); Hemoglobin 9.3 g/dL (12.0-15.0); Mean Corp Hgb Conc 31.1 g/dL (32-36); Mean Corpuscular Hgb 23.8 pg (27.0-32.0); Mean Corpuscular Volume 76.7 fL (81-99); Mean Platelet Vol. 9.8 fl (6.2-12.0); Platelet Count 235 K/mm3 (150-450); RBC Distribution Width CV 15.7 % (11.6-14.6); RBC Distribution Width SD 43.6 fl (35.1-43.9); White Blood Count 4.6 K/mm3 (4.4-11.0)
[2023-07-19 05:24] LABS: Anion Gap 7 (5-15); BUN 8 mg/dL (7-18); BUN/Creat Ratio 9.4 RATIO (10-20); Calcium,Total 8.3 mg/dL (8.5-10.1); Chloride 103 mmol/L (98-107); Creatinine, Serum 0.85 mg/dL (0.55-1.02); EST Glomerular Filtration Rate 78 mL/min (>60); Est Glom Filt Rate - Afr Amer 94 mL/min (>60); Estimated Creatinine Clearance 91.21 ml/min; Glucose 194 mg/dL (74-106); Potassium 3.5 mmol/L (3.5-5.1); Sodium Level 138 mmol/L (136-145)
[2023-07-19 07:53] LABS: Vitamin B12 450 pg/mL (211-911)
[2023-07-19 08:47] VITALS: BP 129/86; PULSE 96; RESP 16; TEMP 36.4; O2SAT 98
[2023-07-19] MEDS: Ceftriaxone 2 GM in 0.9% Normal Saline (50mL MB+) 50 ML IV (08:49)
[2023-07-19] MEDS: Gabapentin 400 MG Capsule 800 MG PO ×2 (08:49→11:30)
[2023-07-19] MEDS: Aspirin E.C. 81 MG Tablet PO (08:50)
[2023-07-19] MEDS: Clopidogrel Bisulfate 75 MG Tablet PO (08:50)
--- NOTE | 2023-07-19 14:58 | CON.PCM.ID_ITS ---
Assessment & Plan Assessment/Plan (1) Gram-negative bacteremia: PLAN: ecoli bacteremia due to pyelo. Much improved on ceftriaxone, ok for home with 4 more days keflex 500mg tid. Will follow as needed, thank you (2) Urinary tract infection: HPI Consult Data Date of Consult: 07/19/23 HPI Narrative Reason for Consultation: bacteremia HPI Narrative: DELMY POLLACK, is a 42 F who presented 07/15 with 2 days progressive dysuria, nausea, abd pain, flank pain, fever, chills. Came to ED, called back next day due to (+) bcx. Admitted on ceftriaxone, feeling better. Full ROS performed and neg except as noted above. [facility] Medical History Acne Anxiety AVM (arteriovenous malformation) brain Back pain Cardiology follow-up encounter Depression Dietary restriction Difficulty swallowing Epilepsy Fatty liver Fibromyalgia Gastroparesis Hepatitis History of echocardiogram History of hiatal hernia History of IBS HTN (hypertension) Insulin dependent diabetes mellitus Marijuana use Restless legs Rheumatoid arthritis Seizure disorder Thyroid disease TIA (transient ischemic attack) Wears glasses Home Medications gabapentin 300 mg capsule (Neurontin) 800 mg PO TIDCM nerve pain 05/10/17 [History Last Taken 07/15/23] aspirin 81 mg tablet,delayed release 81 mg PO DAILY 02/20/22 [History Last Taken 07/15/23] clopidogrel 75 mg tablet (Plavix) 75 mg PO DAILY 02/20/22 [History Last Taken 07/15/23] cholecalciferol (vitamin D3) 1,250 mcg (50,000 unit) capsule 1,250 mcg PO QMONTH #12 caps 11/16/22 [Rx Last Taken 06/24/23] flash glucose sensor (FreeStyle Janee 2 Sensor kit) #6 ea 01/12/23 [Rx Last Taken Unknown] Mounjaro 15 mg/0.5 mL subcutaneous pen injector (tirzepatide) 15 mg (0.5 mL) subcut QWEEK #6 mL 03/18/23 [Rx Last Taken 07/11/23] FreeStyle Janee 3 Sensor (blood-glucose sensor) #6 ea 06/28/23 [Rx Last Taken Unknown] Allergy/AdvReac Type Severity Reaction Status Date / Time Sulfa (Sulfonamide Allergy Intermediate Hives Verified 07/16/23 08:32 Antibiotics) Iodinated Contrast Media Allergy Mild Rash Verified 07/16/23 08:32 nortriptyline AdvReac Severe Other Verified 07/16/23 08:32 metformin AdvReac Intermediate Diarrhea Verified 07/16/23 08:32 morphine AdvReac Itching Verified 07/16/23 08:32 Family History Father GERD (gastroesophageal reflux disease) Mother Rheumatoid arthritis Other Anxiety Arthritis Autoimmune disorder Surgical History History of section History of esophagogastroduodenoscopy (EGD) History of surgery of uterus Hx of appendectomy S/P cholecystectomy S/P hysterectomy Status post left foot surgery Status post right foot surgery Social History household members: none Smoking Status: Never smoker alcohol intake: current alcohol intake frequency: holidays/special occasions only substance use type: does not use what type of physical activity do you participate in: walking frequency: 3-4 times per week Physical Exam Const alert, oriented x3 and no apparent distress General Appearance: cooperative HEENT normocephalic and head/scalp atraumatic Eyes PERRL and EOMs intact bilaterally Neck supple and No nodes Resp normal air movement and clear to auscultation bilaterally Cardio regular rate and regular rhythm GI soft to palpation, non-tender and non-distended Extremity General Extremity: Negative for edema Skin no rashes or lesions noted Neuro CN's II-XII intact bilaterally Lab / Micro Data Attestation: I reviewed the patient's lab results. 07/19/23 04:30 07/19/23 04:30 Labs: Laboratory Results - last 24 hr 07/18/23 05:35: Vitamin B12 450 07/19/23 04:30: WBC 4.6, RBC 3.90 L, Hgb 9.3 L, Hct 29.9 L, MCV 76.7 L, MCH 23.8 L, MCHC 31.1 L, RDW Std Deviation 43.6, RDW Coeff of Quentin 15.7 H, Plt Count 235, MPV 9.8, Sodium 138, Potassium 3.5, Chloride 103, Carbon Dioxide 28.0, Anion Gap 7, BUN 8, Creatinine 0.85, Estim Creat Clear Calc 91.21, Est GFR (MDRD) Af Amer 94, Est GFR (MDRD) Non-Af 78, BUN/Creatinine Ratio 9.4 L, Glucose 194 H, Calcium 8.3 L
--- NOTE | 2023-07-19 15:07 | PCM.DC.SUM ---
Providers Date of Admission: 07/16/23 Date of Discharge: 07/19/23 Primary Care Physician: Dr. Jhonny Valladares MD Consultations 07/18/23 15:45 Consult: Infectious Disease Routine Consulting Provider: Duke Moore Reason for Consult: Gram-negative bacteremia, homegoing antibiotic recs EMERGENT Consult: No MD Notified: Yes Date Notified: 07/19/23 Time Notified: 06:48 Method of Notification: Answering Service Reason For Visit: GRAM NEGATIVE BACTEREMIA DUE TO UTI Diagnosis Discharge Diagnosis (1) Gram-negative bacteremia: Status: Acute Code(s): R78.81 - Bacteremia (2) Urinary tract infection: Status: Acute Code(s): N39.0 - Urinary tract infection, site not specified Medications at Discharge Home Medications gabapentin 300 mg capsule (Neurontin) 800 mg PO TIDCM nerve pain 05/10/17 aspirin 81 mg tablet,delayed release 81 mg PO DAILY 02/20/22 clopidogrel 75 mg tablet (Plavix) 75 mg PO DAILY 02/20/22 cholecalciferol (vitamin D3) 1,250 mcg (50,000 unit) capsule 1,250 mcg PO QMONTH #12 caps 11/16/22 flash glucose sensor (FreeStyle Janee 2 Sensor kit) #6 ea 01/12/23 Mounjaro 15 mg/0.5 mL subcutaneous pen injector (tirzepatide) 15 mg (0.5 mL) subcut QWEEK #6 mL 03/18/23 FreeStyle Janee 3 Sensor (blood-glucose sensor) #6 ea 06/28/23 cephalexin 500 mg capsule 500 mg PO TID #12 caps 07/19/23 Hospital Course Operations None Procedures None Summary of Care Provided Minutes Spent on Discharge: 45 Hospital Course: Patient is a 42-year-old female with a past medical history as outlined who was admitted through the ED on 07/16/2023 on account of positive blood cultures. She had come to the ED the day before admission for UTI like symptoms and was found to have UTI based on abnormal urinalysis. She was given a dose of Rocephin in the ED and given a prescription for p.o. Macrobid and discharged home. Blood cultures were drawn and on the eighth were preliminary positive for gram-negative bacteria manage the patient was called and told to come into the ED. In the ED she admitted to feeling weak and fatigued and had some nausea but no vomiting. She was hydrated with fluids and started on IV ceftriaxone. CT of the abdomen and pelvis showed no evidence of kidney stone no hydronephrosis or pyelonephritis. She was admitted and managed for UTI in the setting of gram-negative bacteremia. She was started on IV ceftriaxone blood cultures grew E. coli. Patient symptoms improved and she felt much better. ID was consulted and reviewed patient and recommended that she could be discharged home on a 4-day course of p.o. cephalexin. She was discharged home on 07/19/2023. She is follow-up with her primary care doctor within 1 to 2 weeks. Patient seen and examined prior to discharge. She felt well and had no active complaints. Review of systems otherwise negative. Labs and vitals reviewed. Home medications reviewed and reconciled. Physical Exam Const alert, oriented x3 and no apparent distress Constitutional Narrative: looks much older than stated age General Appearance: cooperative, comfortable, well kempt and well developed Orientation / Consciousness: awake Exam Limitations: no limitations HEENT normocephalic, head/scalp atraumatic, hearing grossly normal bilaterally and moist oral mucous membranes Mouth: oral and palatal mucosa normal and dry mucous membranes Eyes PERRL, EOMs intact bilaterally and conjunctivae normal Neck no lymphadenopathy and supple Resp normal respiratory effort, no retractions, no use of accessory muscles and clear to auscultation bilaterally Cardio regular rate, regular rhythm, S1 normal heart sound, S2 normal heart sound and no murmurs GI normal to inspection, nondistended, normoactive bowel sounds, soft to palpation, non-tender and non-distended Extremity normal to inspection, full ROM and no clubbing, cyanosis or edema Skin no rashes or lesions noted, no wounds and skin turgor normal Neuro oriented x3, CN's II-XII intact bilaterally, moves all extremities, no focal motor deficits and no sensory deficits noted Sensorium / Orientation: awake and alert Motor Exam: strength 5/5 throughout Psych affect normal Weight / BMI Weight Weight: 169 lb 8.003 oz Body Mass Index (BMI) 27.3 ABG / Lab / Microbiology Data 07/19/23 04:30 07/19/23 04:30 Laboratory: Laboratory Results - last 24 hr 07/18/23 05:35: Vitamin B12 450 07/19/23 04:30: WBC 4.6, RBC 3.90 L, Hgb 9.3 L, Hct 29.9 L, MCV 76.7 L, MCH 23.8 L, MCHC 31.1 L, RDW Std Deviation 43.6, RDW Coeff of Quentin 15.7 H, Plt Count 235, MPV 9.8, Sodium 138, Potassium 3.5, Chloride 103, Carbon Dioxide 28.0, Anion Gap 7, BUN 8, Creatinine 0.85, Estim Creat Clear Calc 91.21, Est GFR (MDRD) Af Amer 94, Est GFR (MDRD) Non-Af 78, BUN/Creatinine Ratio 9.4 L, Glucose 194 H, Calcium 8.3 L D/C Instructions Discharge Diet: Low fat / Low cholesterol Discharge Activity: Return to Normal Activity Weight Bearing Status: Weight bearing as tolerated Call your doctor if you observe: Fever of 101 or Higher, Shortness of breath, Dizziness, Swelling in the ankles and Chest pain Meaningful Use Info Meaningful Use Diagnoses (Choose all that apply): None applicable Discharge Plan Admission Admit Date/Time: 07/16/23 11:11 Primary Reason for Your Visit: UTI, E coli bacteremia Attending Provider: Ashleigh Tilley Primary Care Provider: Jhonny Valladares Consulting Providers: Bucky Ahumada; Duke Moore Instructions Patient Instructions: E. Coli Infection Discharge Orders/Prescriptions Prescriptions: New cephalexin 500 mg capsule 500 mg PO TID Qty: 12 0RF Continued cholecalciferol (vitamin D3) 1,250 mcg (50,000 unit) capsule 1,250 mcg PO QMONTH Qty: 12 0RF gabapentin [Neurontin] 300 MG capsule 800 mg PO TIDCM clopidogrel [Plavix] 75 mg Tablet 75 mg PO DAILY aspirin 81 mg Tablet,Delayed Release (Dr/Ec) 81 mg PO DAILY (DME) FreeStyle Janee 2 Sensor Kit See Rx Instructions .Route Qty: 6 3RF Rx Instructions: As directed Mounjaro 15 mg/0.5 mL pen injector 15 mg subcut QWEEK Qty: 6 1RF (DME) FreeStyle Janee 3 Sensor Device See Rx Instructions .Route Qty: 6 1RF Rx Instructions: As directed Referrals / Follow Up: Jhonny Valladares MD [Primary Care Provider] - Within 2 Weeks (Please call the office to schedule an appt. ) Disposition Disposition (needs filled in before D/C Order can be placed): Home, Self Care Charges/Coding Visit Charges Inpatient E&M: 23657 Disch Hosp >30min
--- NOTE | 2023-07-19 16:20 | CASEMGMT ---
PRASAD received a voice mail from Makayla with [facility]. Makayla asked for a return call regarding patient's admission date and reason. PRASAD called Makayla back and left her a voice mail on her confidential line with this information. PRASAD also faxed instructions to Makayla. Pricila JUAREZ
[2023-07-19 16:24] VITALS: BP 152/94; PULSE 84; RESP 16; TEMP 36.5; O2SAT 96
== END 2023-07-19 16:43 | disposition home or self-care (01) | DRG 690 ==
LOC: ED 09:04 → PCU 11:52
PROVIDERS: Admitting Provider Hospitalist; Emergency Provider Student in an Organized Health Care Education/Training Program; PCP Family Medicine; Visit Provider Student in an Organized Health Care Education/Training Program
DX: N39.0 Urinary tract infection, site not specified (principal); R78.81 Bacteremia; G40.909 Epilepsy, unspecified, not intractable, without status epilepticus; E11.65 Type 2 diabetes mellitus with hyperglycemia; D50.9 Iron deficiency anemia, unspecified; B96.20 Unspecified Escherichia coli [E. coli] as the cause of diseases classified elsewhere; Z79.4 Long term (current) use of insulin; I10 Essential (primary) hypertension; M79.7 Fibromyalgia; Z79.02 Long term (current) use of antithrombotics/antiplatelets; Z79.82 Long term (current) use of aspirin; Z86.73 Personal history of transient ischemic attack (TIA), and cerebral infarction without residual deficits
CPT/HCPCS: 36415; 71045; 74176; 80048; 80053; 81001; 82607; 82728; 82746; 82962; 83540; 83550; 83605; 84703; 85025; 85027; 85610; 85730; 87040; 87077; 87086; 87088; 87186; 93005; 96361; 96365; 97802; 99282; 99285; J7030; J7040; A4216; J2405

== ENCOUNTER 2024-02-14 15:15 | Emergency (ER) | payer MEDICARE, SELFPAY ==
[2024-02-14 15:16] VITALS: BP 158/104; PULSE 113; RESP 16; TEMP 36.8; O2SAT 98; BMI 27.2
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
[2024-02-14 16:07] LABS: Absolute Lymphocyte Count 1.89 X10^3/uL (0.83-4.51); Absolute Neutrophil Count 2.2 X10^3/uL (2.0-7.7); Basophil# 0.03 X10^3/uL; Basophil% 0.6 % (0-1); Eosinophil# 0.26 X10^3/uL; Eosinophils% 5.5 % (0-5); Hematocrit 39.7 % (37-47); Hemoglobin 13.2 g/dL (12.0-15.0); Lymphocyte # 1.89 X10^3/ul (0.83-4.51); Mean Corp Hgb Conc 33.2 g/dL (32-36); Mean Corpuscular Hgb 27.2 pg (27.0-32.0); Mean Corpuscular Volume 81.9 fL (81-99); Monocyte# 0.33 X10^3/uL; NRBC Flagged by Analyzer 0 % (0-5); Neutrophil % 46.5 % (47-70); Platelet Count 203 K/mm3 (150-450); RBC Distribution Width CV 13.2 % (11.6-14.6); RBC Distribution Width SD 38.7 fl (35.1-43.9); Red Blood Count 4.85 M/mm3 (4.2-5.4); White Blood Count 4.7 K/mm3 (4.4-11.0)
--- NOTE | 2024-02-14 16:09 | ED.RN ---
PT CAME OUT OF ROOM AND REQUESTED A AMA FORM. PT STATES I WANT TO GO HOME, I HAVE BABIES TO FEED. THIS NURSE WENT AND TOLD DR. BRENNER. PT IS AXO3 AND IS CLEAR TO MAKE DECISIONS. PT IS ADAMANT SHE DID NOT TAKE THE MELATONIN TO HARM HERSELF. SHE JUST WANTED TO SLEEP THROUGH HER ISSUES. PT NORMALLY TAKES 7 MELATONIN AT NIGHT. PT STATES SHE TOOK 10 MELATONIN BECAUSE THE 7 WAS NOT WORKING. PT UNDERSTANDS THE POTENTIALLY RISKS OF LEAVING. PT STATES SHE DOES NOT CARE. PT DID NOT TAKE DISCHARGE PAPERWORK WITH [facility] PT STATES SHE DOES NOT NEED THEM.
[2024-02-14 16:17] LABS: Alcohol, Blood (Medical)-Serum < 3.0 mg/dL
[2024-02-14 16:21] LABS: ALB/GLOB Ratio 0.9 RATIO (0.9-2.4); AST(SGOT) 16 U/L (15-37); Alanine Aminotransfer ALT/SGPT 29 U/L (13-56); Albumin, Serum 3.4 g/dL (3.2-5.0); Alkaline Phosphatase 150 U/L (45-117); Anion Gap 6 (5-15); BUN 11 mg/dL (7-18); BUN/Creat Ratio 13.6 RATIO (10-20); Calcium,Total 8.9 mg/dL (8.5-10.1); Chloride 105 mmol/L (98-107); Creatinine, Serum 0.81 mg/dL (0.55-1.02); EST Glomerular Filtration Rate 83 mL/min (>60); Est Glom Filt Rate - Afr Amer 100 mL/min (>60); Estimated Creatinine Clearance 94.58 ml/min; Globulin 3.8 g/dL (2.2-4.2); Glucose 221 mg/dL (74-106); Potassium 3.6 mmol/L (3.5-5.1); Protein, Total 7.2 g/dL (6.4-8.2); Sodium Level 137 mmol/L (136-145)
[2024-02-14 16:34] LABS: Amphetamine Urine VISTA POSITIVE (<1000 ng/mL); Barbiturate Urine VISTA NEGATIVE (< 200 ng/mL); Benzodiazepine Urine VISTA NEGATIVE (< 200 ng/mL); Cocaine Urine VISTA NEGATIVE (< 300 ng/mL); Ecstacy Urine VISTA POSITIVE (< 500 ng/mL); Methadone Urine VISTA NEGATIVE (< 300 ng/mL); PCP Urine VISTA NEGATIVE (< 25 ng/mL); THC Urine VISTA NEGATIVE (< 50 ng/mL); Vista UDS pH Range 5
== END 2024-02-14 16:17 | disposition left against medical advice (07) ==
PROVIDERS: Emergency Provider Emergency Medicine; PCP Family Medicine; Visit Provider Emergency Medicine
DX: T42.72XA Poisoning by unspecified antiepileptic and sedative-hypnotic drugs, intentional self-harm, initial encounter (principal); E11.43 Type 2 diabetes mellitus with diabetic autonomic (poly)neuropathy; F43.10 Post-traumatic stress disorder, unspecified; I10 Essential (primary) hypertension; K31.84 Gastroparesis; Z79.85 Long-term (current) use of injectable non-insulin antidiabetic drugs; F32.A Depression, unspecified; F41.9 Anxiety disorder, unspecified; Z53.29 Procedure and treatment not carried out because of patient's decision for other reasons; Z63.0 Problems in relationship with spouse or partner
CPT/HCPCS: 80053; 80307; 82077; 85025; 99282

== ENCOUNTER 2024-02-19 11:25 | Emergency (ER) | payer MEDICARE, SELFPAY ==
[2024-02-19 11:25] VITALS: BP 119/89; PULSE 85; RESP 15; TEMP 37; O2SAT 98; BMI 27.3
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
[2024-02-19 12:57] VITALS: BP 127/88; PULSE 82; RESP 16; TEMP 36.4; O2SAT 99
== END 2024-02-19 12:57 | disposition home or self-care (01) ==
PROVIDERS: Emergency Provider Emergency Medicine; PCP Family Medicine; Visit Provider Emergency Medicine
DX: F15.10 Other stimulant abuse, uncomplicated (principal); M06.9 Rheumatoid arthritis, unspecified; F19.10 Other psychoactive substance abuse, uncomplicated; E11.9 Type 2 diabetes mellitus without complications; Z79.4 Long term (current) use of insulin; I10 Essential (primary) hypertension; E07.9 Disorder of thyroid, unspecified; Z79.02 Long term (current) use of antithrombotics/antiplatelets; Z79.84 Long term (current) use of oral hypoglycemic drugs; Z79.899 Other long term (current) drug therapy; Z90.710 Acquired absence of both cervix and uterus
CPT/HCPCS: 99282

== ENCOUNTER 2024-02-28 18:09 | Emergency (ER) | payer MEDICARE, SELFPAY ==
[2024-02-28 18:13] VITALS: BP 133/116; PULSE 108; RESP 22; TEMP 36.6; O2SAT 100; BMI 26.3
--- NOTE | 2024-02-28 18:19 | EKG12_ITS ---
Test Reason : ALT LOC Blood Pressure : / mmHG Vent. Rate : 103 BPM Atrial Rate : 103 BPM P-R Int : 128 ms QRS Dur : 086 ms QT Int : 344 ms P-R-T Axes : 076 014 051 degrees QTc Int : 450 ms Sinus tachycardia Otherwise normal ECG Confirmed by ANIKA ELIZONDO, STACI ([id number]), continuity editor SYMONE BLISS ([id number]) on 03/01/2024 10:04:48 AM Referred By: Confirmed By:STACI DONALDSON MD
--- NOTE | 2024-02-28 18:19 | CT_ITS ---
EXAM: CT CERVICAL SPINE WITHOUT INTRAVENOUS CONTRAST CLINICAL INDICATION: fall, neck pain TECHNIQUE: Helically acquired images were obtained of the cervical spine without intravenous contrast. 2D reformatted images were reviewed. This CT exam was performed using one or more of the following dose reduction techniques: automated exposure control, adjustment of the mA and/or kV according to patient size, and/or use of iterative reconstruction technique. COMPARISON: No relevant prior studies available. FINDINGS: VERTEBRAE: Unremarkable. No fracture. No traumatic subluxation. No discrete lytic or blastic abnormality. Normal alignment. Normal craniocervical junction and cervicothoracic junction. DISCS/SPINAL CANAL/NEURAL FORAMINA: Unremarkable. Disc heights are preserved. No critical stenosis. SOFT TISSUES: Unremarkable. No prevertebral soft tissue swelling. LYMPH NODES: Unremarkable. No cervical adenopathy. LUNG APICES: Unremarkable as visualized. Clear. CT/Spine Cervical without Contras IMPRESSION: No evidence of acute cervical spinal fracture or spondylolisthesis. Electronically Signed: Hemant Healy MD at 19:40 EDT ,
--- NOTE | 2024-02-28 18:19 | CT_ITS ---
EXAM: CT HEAD WITHOUT INTRAVENOUS CONTRAST CLINICAL INDICATION: AMS TECHNIQUE: Multiple axial images were obtained of the head without intravenous contrast. This CT exam was performed using one or more of the following dose reduction techniques: automated exposure control, adjustment of the mA and/or kV according to patient size, and/or use of iterative reconstruction technique. COMPARISON: No relevant prior studies available. 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 No intra- or extra-axial hemorrhage. No evidence of acute infarct. No intracranial mass or mass effect. There is preservation of the sarabia/white matter interface. Posterior fossa structures are unremarkable. Ventricles are appropriate for age. No hydrocephalus. Basal cisterns are patent. BONES/JOINTS: Unremarkable. No discrete lytic or blastic abnormalities. SINUSES: Unremarkable as visualized. Clear. MASTOID AIR CELLS: Unremarkable. Clear. ORBITS: Visualized globes, extraocular muscles, optic nerves and retrobulbar fat appear unremarkable. CT/Brain/Head without Contrast IMPRESSION: No acute findings in the head/brain. Electronically Signed: Hemant Healy MD at 19:38 EDT ,
--- NOTE | 2024-02-28 18:21 | ED.RN ---
STROKE ALERT CANCELLED PER DR. KIM
--- NOTE | 2024-02-28 18:22 | CT_ITS ---
EXAM: CT LUMBAR SPINE WITHOUT INTRAVENOUS CONTRAST CLINICAL INDICATION: back pain TECHNIQUE: Helically acquired images were obtained of the lumbar spine without intravenous contrast. 2D reformats were reviewed. This CT exam was performed using one or more of the following dose reduction techniques: automated exposure control, adjustment of the mA and/or kV according to patient size, and/or use of iterative reconstruction technique. COMPARISON: No relevant prior studies available. FINDINGS: VERTEBRAE: Unremarkable. No fracture. No traumatic subluxation. No discrete lytic or blastic abnormality. Normal alignment. DISCS/SPINAL CANAL/NEURAL FORAMINA: Unremarkable. Disc heights are preserved. No critical stenosis. VASCULATURE: There are vascular coils to the left of the lumbar spine and in the left hemipelvis. Visualized abdominal aorta is not dilated. LYMPH NODES: Unremarkable. No retroperitoneal adenopathy. CT/Spine Lumbar without Contrast IMPRESSION: No acute findings in the lumbar spine. Electronically Signed: Hemant Healy MD at 19:48 EDT ,
--- NOTE | 2024-02-28 18:22 | CT_ITS ---
EXAM: CT THORACIC SPINE WITHOUT INTRAVENOUS CONTRAST CLINICAL INDICATION: back pain TECHNIQUE: Helically acquired images were obtained of the thoracic spine without intravenous contrast. 2D reformats were reviewed. This CT exam was performed using one or more of the following dose reduction techniques: automated exposure control, adjustment of the mA and/or kV according to patient size, and/or use of iterative reconstruction technique. COMPARISON: No relevant prior studies available. FINDINGS: VERTEBRAE: Unremarkable. No fracture. No traumatic subluxation. No discrete lytic or blastic abnormality. Normal alignment. DISCS/SPINAL CANAL/NEURAL FORAMINA: Unremarkable. Disc heights are preserved. VASCULATURE: Visualized thoracic aorta is not dilated. LYMPH NODES: Unremarkable. No retroperitoneal adenopathy. LUNGS AND PLEURAL SPACES: Unremarkable as visualized. No mass. No consolidation or edema. No pleural effusion or thickening. No pneumothorax. CT/Spine Thoracic without Contras IMPRESSION: No evidence of acute thoracic spinal fracture or spondylolisthesis. Electronically Signed: Hemant Healy MD at 19:43 EDT ,
[2024-02-28] MEDS: 0.9% Normal Saline (1000mL) 1,000 ML 999 ML IV (18:32)
[2024-02-28] MEDS: Ondansetron 4 MG/2 ML Vial IV (18:32)
--- NOTE | 2024-02-28 18:32 | EX.ED.CRITCA ---
HPI History of Present Illness Chief Complaint: Alt LOC PFSH PFSH Medical History Gram-negative bacteremia Insulin dependent diabetes mellitus Wears glasses Acne Depression Anxiety Marijuana use Thyroid disease Rheumatoid arthritis Fibromyalgia Hepatitis Fatty liver Restless legs Back pain TIA (transient ischemic attack) Epilepsy Dietary restriction Difficulty swallowing History of hiatal hernia History of IBS History of echocardiogram Cardiology follow-up encounter Gastroparesis HTN (hypertension) AVM (arteriovenous malformation) brain Seizure disorder Home Medications ?Medication ?Instructions ?Recorded ?Last Taken ?Type gabapentin 300 mg capsule 800 mg PO TIDCM nerve pain 05/10/17 07/15/23 History (Neurontin) aspirin 81 mg tablet,delayed 81 mg PO DAILY 02/20/22 07/15/23 History release clopidogrel 75 mg tablet (Plavix) 75 mg PO DAILY 02/20/22 07/15/23 History cholecalciferol (vitamin D3) 1,250 1,250 mcg PO QMONTH #12 caps 11/16/22 06/24/23 Rx mcg (50,000 unit) capsule flash glucose sensor (FreeStyle #6 ea 01/12/23 Unknown Rx Janee 2 Sensor kit) Mounjaro 15 mg/0.5 mL subcutaneous 15 mg (0.5 mL) subcut QWEEK #6 mL 03/18/23 07/11/23 Rx pen injector (tirzepatide) FreeStyle Janee 3 Sensor #6 ea 06/28/23 Unknown Rx (blood-glucose sensor) cephalexin 500 mg capsule 500 mg PO TID #12 caps 07/19/23 Unknown Rx Allergy/AdvReac Type Severity Reaction Status Date / Time Sulfa (Sulfonamide Allergy Intermediate Hives Verified 02/19/24 11:30 Antibiotics) Iodinated Contrast Media Allergy Mild Rash Verified 02/19/24 11:30 nortriptyline AdvReac Severe Other Verified 02/19/24 11:30 metformin AdvReac Intermediate Diarrhea Verified 02/19/24 11:30 morphine AdvReac Itching Verified 02/19/24 11:30 Family History Father GERD (gastroesophageal reflux disease) Mother Rheumatoid arthritis Other Anxiety Arthritis Autoimmune disorder Surgical History Status post left foot surgery Status post right foot surgery History of section History of esophagogastroduodenoscopy (EGD) Hx of appendectomy S/P cholecystectomy S/P hysterectomy History of surgery of uterus Social History household members: none Smoking Status: Never smoker alcohol intake: current alcohol intake frequency: holidays/special occasions only substance use type: does not use what type of physical activity do you participate in: walking frequency: 3-4 times per week EXAM Physical Exam Const Vital Signs: 02/28/24 18:13 02/28/24 18:54 02/28/24 19:11 Temperature 97.8 F Temperature Source Oral Pulse Rate 108 H 81 Respiratory Rate 22 H 18 Blood Pressure 133/116 H 118/82 H Blood Pressure Mean 121 94 Pulse Ox 100 98 100 Oxygen Delivery Method Room Air Room Air 02/28/24 20:00 02/28/24 21:00 02/28/24 21:51 Temperature 98 F Temperature Source Pulse Rate 80 81 Respiratory Rate 18 Blood Pressure 158/101 H 129/78 H 139/87 H Blood Pressure Mean 118 94 104 Pulse Ox 98 98 Oxygen Delivery Method MDM MDM MDM Narrative Medical decision making narrative: HISTORY OF PRESENT ILLNESS: 43-year-old female history of polysubstance abuse, lipidemia, diabetes, CKD, AVM, for myalgia, epilepsy presents concern for acute stroke. Per EMS she was found in her car. Last known well was greater than 24 hours prior to arrival at 1700 on February 27, 2024. Patient is altered is unreliable history but does note headache, recent fall, back pain. REVIEW OF SYSTEMS: Pertinent positives: Headache, back pain Pertinent negatives: Chest pain, shortness of breath PHYSICAL EXAM: Nursing triage notes reviewed, Vital signs reviewed Primary Survey Airway: Intact Breathing: Bilateral breath sounds Circulation: Palpable bilateral femorals, Palpable bilateral radial, Palpable bilateral DP and Palpable bilateral PT Disability / Spine precautions GCS Score: Eye Openin Verbal Response: 5 Motor Response: 6 Secondary Survey Constitutional: Please see MDM Head: Atraumatic, Midface stable, NO jaw malocclusion, No Cephalohematoma, and No Lacerations noted Eye: Pupils equal round and reactive to light, Extraocular muscles intact and No periorbital ecchymosis or stepoff, no evidence of entrapment ENT: Oropharynx clear, no lacerations, no hemotympanum, no raccoon eyes or santillan sign Cervical spine / Neck: No cervical spine bony tenderness, crepitance, or stepoff deformity Trachea midline Lungs: Clear to auscultation, No asymmetric rise and No crepitus, no flail chest Cardiac: Regular rate and rhythm and No murmurs Abdomen: Soft, Nontender and No rebound Pelvis: Pelvis stable to compression : No evidence of genital injury Back: No midline bony tenderness to thoracic/lumbar/sacral spines Neuro: At baseline, intact strength and sensation in bilateral upper and lower extremities. 2+ patellar reflexes bilaterally. Extremities: NO gross Deformities Psych: Normal affect Nursing triage notes reviewed, Vital signs reviewed MEDICAL DECISION MAKING: Chief Complaint: Altered mental status External records reviewed: Reviewed prior encounters, vital signs, allergies, problem list, current medication Factors affecting care: As per HPI Social determinants of health: History of methamphetamine abuse History obtained from others: EMS Consults: none [facility] Narrative: Patient was initially tachycardic, tachypneic otherwise afebrile. No obvious focality to her neurologic exam. Moves all 4 extremities and had sensation all 4 extremities. She appeared diffuse encephalopathic alert and oriented to self but not place or time I considered the following differential diagnosis: ICH, polysubstance abuse, metabolic or hepatic encephalopathy, DKA, COVID-19, fracture of the axial skeleton, UTI, ALL IMAGES (IF OBTAINED) HAVE BEEN PERSONALLY REVIEWED AND INTERPRETED BY MYSELF. CT scan of the head, cervical, thoracic, lumbar spine are negative for acute traumatic injury CBC without leukocytosis, severe anemia, no thrombocytopenia. VBG without evidence of CO2 retention CMP without evidence of acute kidney injury, significant electrolyte abnormality, anion gap to suggest end organ hypo-perfusion, no evidence of metabolic acidosis with a normal bicarbonate, noted elevation liver enzymes, alkaline phosphatase BNP within normal limits no sign of heart failure Lipase is wnl indicating no pancreatic inflammation. Serum hCG negative Urinalysis shows no evidence of urinary inflammation suggestive of UTI Urine tox cream positive for vitamin Serum alcohol negative Serum acetone negative I suspect patient altered mental status secondary to methamphetamine intoxication/abuse. On reevaluation the patient was alert and oriented x 3. Displayed capacity to make her medications. She is appropriate discharge home. She agreed not to drive into obtain a sober ride home. The patient and/or family, caregivers express understanding. The patient and/or family, caregivers agrees with the plan. Shared decision making: I will have a discussion with the patient and or visitors regarding risk/benefits of further testing or admission. They will be made aware of of the risk/benefits inherent in this decision they will be given the opportunity to voice understanding. Total critical care time today provided was at least 0 minutes. This excludes separately billable procedures. Critical care time (if documented) is secondary to the patient having high probability of clinically significant/life threatening deterioration in the patient's condition which required my urgent intervention. Impression: 1. Altered mental status 2. Methamphetamine abuse Dispo: Discharge This note was generated with [employer] dictation software. It may contain incorrect words, spelling, and punctuation that were not noted in review of the chart prior to signing. Lab Data Labs: Laboratory Results - last 24 hr 02/28/24 02/28/24 18:18 19:20 WBC 6.4 RBC 5.39 Hgb 14.5 Hct 42.7 MCV 79.2 L MCH 26.9 L MCHC 34.0 RDW Std Deviation 37.2 RDW Coeff of Quentin 13.0 Plt Count 237 MPV 10.3 Sodium 139 Potassium 4.1 Chloride 104 Carbon Dioxide 24.0 Anion Gap 10 BUN 13 Creatinine 0.72 Estim Creat Clear Calc 104.67 Est GFR (MDRD) Af Amer 113 Est GFR (MDRD) Non-Af 94 BUN/Creatinine Ratio 17.9 Glucose 118 H Calcium 9.8 Total Bilirubin 1.00 Direct Bilirubin 0.37 H AST 55 H ALT 101 H Alkaline Phosphatase 202 H Troponin I High Sens 5 B-Natriuretic Peptide 25.8 Total Protein 7.3 Albumin 3.5 Globulin 3.8 Lipase 45 HCG, Quant < 1 Urine Color Yellow Urine Clarity Clear Urine pH 6.5 Ur Specific [place] 1.015 Urine Protein Negative Urine Glucose (UA) Normal Urine Ketones 50 H Urine Occult Blood Negative Urine Nitrite Negative Urine Bilirubin Negative Urine Urobilinogen Normal Ur Leukocyte Esterase Negative Urine RBC 0 SEEN Urine WBC 0-5 SEEN Ur Squamous Epith Cells 0-5 SEEN Urine Bacteria RARE Urine Mucus 0 SEEN Urine Opiates Screen NEGATIVE Urine Methadone Screen NEGATIVE Ur Barbiturates Screen NEGATIVE Ur Phencyclidine Scrn NEGATIVE Ur Amphetamines Screen POSITIVE H MDMA (Ecstasy) Screen NEGATIVE U Benzodiazepines Scrn NEGATIVE Urine Cocaine Screen NEGATIVE U Cannabinoids Screen NEGATIVE Ur Drug Screen Comment Ethyl Alcohol < 3.0 Acetone Level NEGATIVE ABG Data ABG results: ABG 02/28/24 18:43 Specimen Type CORTEZ Sample Site Not entered VBG pH 7.44 H VBG pO2 38 VBG HCO3 22 VBG Total CO2 23 VBG O2 Sat (Calc) 75 H VBG Base Excess -2 L POC Mix VBG pCO2 Pt Tmp 32.5 L O2 Delivery Device Room Air Radiography Diagnostic Testing: Clinical Impression(s) from Imaging Studies Brain CT 02/28/24 18:19 IMPRESSION: No acute findings in the head/brain. Electronically Signed: Hemant Healy MD at 19:38 EDT , Cervical Spine CT 02/28/24 18:19 IMPRESSION: No evidence of acute cervical spinal fracture or spondylolisthesis. Electronically Signed: Hemant Healy MD at 19:40 EDT , Lumbar Spine CT 02/28/24 18:22 IMPRESSION: No acute findings in the lumbar spine. Electronically Signed: Hemant Healy MD at 19:48 EDT , Thoracic Spine CT 02/28/24 18:22 IMPRESSION: No evidence of acute thoracic spinal fracture or spondylolisthesis. Electronically Signed: Hemant Healy MD at 19:43 EDT , Chest X-Ray 02/28/24 18:55 IMPRESSION: No radiographic evidence of acute cardiopulmonary disease. Electronically Signed: Hemant Healy MD at 19:34 EDT , Discharge Plan Triage Chief Complaint: Alt LOC ED Provider: Abraham Wilcox Dx/Rx/DC Orders Clinical Impression: Methamphetamine abuse Instructions: ED Drug Abuse Prescriptions: No Action cholecalciferol (vitamin D3) 1,250 mcg (50,000 unit) capsule 1,250 mcg PO QMONTH Qty: 12 0RF gabapentin [Neurontin] 300 MG capsule 800 mg PO TIDCM clopidogrel [Plavix] 75 mg Tablet 75 mg PO DAILY aspirin 81 mg Tablet,Delayed Release (Dr/Ec) 81 mg PO DAILY cephalexin 500 mg capsule 500 mg PO TID Qty: 12 0RF (DME) FreeStyle Janee 2 Sensor Kit See Rx Instructions .Route Qty: 6 3RF Rx Instructions: As directed Mounjaro 15 mg/0.5 mL pen injector 15 mg subcut QWEEK Qty: 6 1RF (DME) FreeStyle Janee 3 Sensor Device See Rx Instructions .Route Qty: 6 1RF Rx Instructions: As directed Primary Care Provider: Jhonny Valladares Referrals: Jhonny Valladares MD [Primary Care Provider] - Activity Restrictions/Additional Instructions: Thank you for trusting us with your care today! Please refrain from using recreational drugs. Please take Tylenol (2 pills, 650 mg), ibuprofen (2 pills, 400 mg) every 6 hours as needed for pain and fever control. Please return to the emergency department if your symptoms change or worsen. Please follow with your primary care physician for further outpatient evaluation and management. Print Language: Arabic Disposition Disposition: Home, Self Care Discharge Date/Time: 02/28/24 22:21
[2024-02-28 18:46] LABS: Hematocrit 42.7 % (37-47); Hemoglobin 14.5 g/dL (12.0-15.0); Mean Corpuscular Hgb 26.9 pg (27.0-32.0); Mean Corpuscular Volume 79.2 fL (81-99); Mean Platelet Vol. 10.3 fl (6.2-12.0); Platelet Count 237 K/mm3 (150-450); RBC Distribution Width SD 37.2 fl (35.1-43.9); Red Blood Count 5.39 M/mm3 (4.2-5.4); White Blood Count 6.4 K/mm3 (4.4-11.0)
[2024-02-28 18:47] LABS: Blood Gas Specimen Type VEN; O2 Delivery Device Room Air; SITE Not entered; VBG BASE EXCESS -2 mmol/L (-1.0-3.5); VBG Bicarbonate 22 mmol/L (22-26); VBG PO2 38 mmHg (25-40); VBG SO2 75 % (50-70); VBG TCO2 23 mmol/L (23-33); VBG pCO2 32.5 mmHg (41-51); VBG pH 7.44 (7.32-7.42)
--- NOTE | 2024-02-28 18:48 | ED.RN ---
CALLED [facility]AKIA (MOM) TO UPDATE/GET INFORMATION
[2024-02-28 18:54] VITALS: BP 118/82; PULSE 81; RESP 18; O2SAT 98
--- NOTE | 2024-02-28 18:55 | RAD_ITS ---
EXAM: XR CHEST, 1 VIEW CLINICAL INDICATION: AMS TECHNIQUE: Frontal view of the chest. COMPARISON: 07/15/2023 FINDINGS: LUNGS AND PLEURAL SPACES: Unremarkable. No consolidation or edema. No pneumothorax. No effusion. HEART: Unremarkable. Cardiac silhouette not enlarged. MEDIASTINUM: Central airways and mediastinal contour are unremarkable. BONES/JOINTS: Unremarkable. No acute fracture. SOFT TISSUES: Unremarkable. RAD/Chest 1 View (Portable) IMPRESSION: No radiographic evidence of acute cardiopulmonary disease. Electronically Signed: Hemant Healy MD at 19:34 EDT ,
[2024-02-28 19:05] LABS: Alcohol, Blood (Medical)-Serum < 3.0 mg/dL
[2024-02-28 19:06] LABS: hCG Titer Quant., Serum < 1 mIU/mL (1-3)
[2024-02-28 19:08] LABS: AST(SGOT) 55 U/L (15-37); Alanine Aminotransfer ALT/SGPT 101 U/L (13-56); Albumin, Serum 3.5 g/dL (3.2-5.0); Alkaline Phosphatase 202 U/L (45-117); Anion Gap 10 (5-15); BUN 13 mg/dL (7-18); BUN/Creat Ratio 17.9 RATIO (10-20); Bilirubin, Direct 0.37 mg/dL (0.00-0.30); Calcium,Total 9.8 mg/dL (8.5-10.1); Chloride 104 mmol/L (98-107); Creatinine, Serum 0.72 mg/dL (0.55-1.02); EST Glomerular Filtration Rate 94 mL/min (>60); Est Glom Filt Rate - Afr Amer 113 mL/min (>60); Estimated Creatinine Clearance 104.67 ml/min; Globulin 3.8 g/dL (2.2-4.2); Glucose 118 mg/dL (74-106); Lipase 45 U/L (13-75); Potassium 4.1 mmol/L (3.5-5.1); Protein, Total 7.3 g/dL (6.4-8.2); Sodium Level 139 mmol/L (136-145); Troponin-I HS 5 pg/mL (3.0-54.0)
[2024-02-28 19:10] LABS: BNP,B-Type NATRIURETIC PEPTIDE 25.8 pg/mL (0-100)
[2024-02-28 19:11] VITALS: O2SAT 100
[2024-02-28 19:30] LABS: Mucous, Urine 0 SEEN /hpf (<or=2+); Red Blood Cells-Urine 0 SEEN /hpf (0-5)
[2024-02-28 19:45] LABS: Color, Urine Yellow (Yellow); Glucose, Dipstick Normal (Normal); Ketone-Dipstick 50 mg/dl (Negative); Leukocyte Esterase-Dipstick Negative /ul (Negative); Nitrite-Dipstick Negative (Negative); Occult Blood-Urine Negative /ul (Negative); Protein-Dipstick Negative (Negative); Specific Gravity, Urine 1.015 (1.002-1.030); Urine Bilirubin Dipstick Negative (Negative); Urine Clarity Clear (Clear); Urine Urobilinogen Normal (Normal); Urine pH 6.5 (5.0 - 8.0)
--- OUTSIDE RECORDS SUMMARY | 2024-02-28 19:48 | XMS RPT_ITS | CCD ---
Author Organization [facility] Team Providers Care Assistant Shift Supervisor Name Role Phone Charis Espinal Unavailable Young, Sharmaine S Unavailable Unavailable Young, Sharmaine S Unavailable Unavailable Charis Espinal Unavailable Unavailable TYRELL VAZ Attending Unavailable CHARIS ESPINAL Primary Care Unavailable Charis Espinal Primary Care Provider Unava ilable SYSTEM, PROVIDER NOT IN Admitting Unavaila ble SYSTEM, PROVIDER NOT IN Referring Unavaila ble CHARIS ESPINAL Primary Care Unavailable YOLANDA CAMPOS Referring Unavailable CHARIS ESPINAL Primary Care Unavailable [facility] Consulting SONI Blas Admitting Unavail able STACEY SHAH Attending Unavailable ELBA VIGIL Consulting Eli Mcleod MD Unavailable [phone] Jhonny Felix Primary Care Provider Unava ilable Charis Espinal Primary Care Provider Charis Espinal Primary Care Provider Free, Text Entry Unavailable Unavailable Tashia Garnett Unavailable Unavailable Charis Espinal MD Primary Care Provider Sheila Montalvo Unavailable Unavailable MIHAI CALIXTO Attending Unavailable MIHAI CALIXTO Admitting Unavailable LOIS DE LA FUENTE K Referring Unavailable SELF, SELF Referring Unavailable JHONNY VALLADARES Primary Care Unavailable Charis Espinal MD Primary Care Provider SINGH RODGERS Primary Care Unavailable SINGH RODGERS Admitting Unavailable SIGNH RODGERS Attending Unavailable ANGELES PERALES Attending Unavailable ANGELES PERALES Primary Care Unavailable ANGELES PERALES Admitting Unavailable RAMAN CARDONA Attending Unavailable RAMAN CARDONA M Primary Care Unavailable RAMAN CARDONA Admitting Unavailable NICOLE BURGOS DO Attending Unavailable NICOLE BURGOS DO Primary Care Unavailable NICOLE BURGOS DO Admitting Unavailable Janessa YAN Consulting Unavailable PROVIDER, UNKNOWN Consulting Unavailable Jhonny Valladares Primary Care Provider Jhonny Valladares MD Primary Care Provider Cordell Pranav Unavailable Jhonny Valladares MD Primary Care Provider Charis Espinal MD Primary Care Provider [phone] CHARIS ESPINAL Primary Care Unavailable NAKITA MCCABE Attending Unavailable NAKITA MCCABE Attending Unavailable CHARIS ESPINAL Primary Care Unavailable LUIS ENRIQUE GARCIA Attending Unavailable CHARIS ESPINAL Primary Care Unavailable JHONNY VALLADARES Primary Care Unavailable JHONNY VALLADARES Primary Care Unavailable JHONNY VALLADARES Primary Care Unavailable CHARIS OAKLEY Attending Unavailable JHONNY VALLADARES Primary Care Unavailable CHARIS OAKLEY Referring Unavailable JHONNY VALLADARES Primary Care Unavailable JHONNY VALLADARES Primary Care Unavailable Allergies Allergy Classification Reported Allergen(s) Allergy Type Date of Onset Reaction(s) Facility Contrast Media (1 source) Contrast media Substance Allergy Other [facility] Comment on above: nausea and vomiting metFORMIN (2 sources) metFORMIN Drug Allergy Other, Unknown [facility] Nortriptyline (2 sources) Nortriptyline Drug Allergy Arrhythmia, Other [facility] Opioid Agonists (2 sources) Morphine Drug Allergy Seizure, Unknown [facility] Sulfonamides (antibiotic) (2 sources) Sulfonamides (Antibiotic) Drug Allergy Seizure, Hives/Urticari a [facility] (20 sources) iodine; Translations: [IODINE] Drug Allergy 5 [facility] Work Phone: (20 sources) metFORMIN; Translations: [METFORMIN] Drug Allergy 1 Diarrhea [facility] Work Phone: (20 sources) nortriptyline; Translations: [NORTRIPTYLINE] Drug Allergy 2 Other: See Comments [facility] Work Phone: (15 sources) Sulfonamides (Antibiotic); Translations: [SULFA (SULFONAMIDE ANTIBIOTICS)] Propensity to adverse reactions to drug 6 [facility] Work Phone: (14 sources) CT: IODINATED CONTRAST- ORAL AND IV DYE; Translations: [CT: IODINATED CONTRAST- ORAL AND IV DYE] Propensity to adverse reactions to drug 7 GI Intolerance [facility] Work Phone: (20 sources) Morphine; Translations: [MORPHINE] Drug Allergy 8 Other: See Comments [facility] (3 sources) Sulfonamides (Antibiotic) Propensity to adverse reactions to drug 5 [place], [place] (3 sources) Iodides Propensity to adverse reactions to drug 7 [place], [place] (2 sources) Gadolinium Derivatives Propensity to adverse reactions to drug 0 Itching, Nausea And Vomiting [place], [place] (9 sources) Sulfonamides (Antibiotic) Propensity to adverse reactions to drug 6 [facility] (10 sources) Ct: Iodinated Contrast- Oral And Iv Dye Propensity to adverse reactions to drug 7 GI Intolerance, GI Upset [facility] (1 source) Contrast media Other [facility] Comment on above: nausea and vomiting (2 sources) Sulfonamides (Antibiotic) Seizure, Hives/Urticari a [facility] (1 source) metFORMIN Drug Allergy [facility] (1 source) Nortriptyline Drug Allergy [facility] (1 source) Sulfonamides (Antibiotic) Drug allergy (disorder) [facility] (1 source) CONTRAST MEDIA, GADOLINIUM RELATED Drug allergy (disorder) [facility] (1 source) 02/28/2021 (+) MRSA WOUND; Translations: [02/28/2021 (+) MRSA WOUND] Propensity to adverse reactions (disorder) [facility] (1 source) Contrast media; Translations: [CONTRAST DYE] Propensity to adverse reactions to drug (disorder) 7 [facility] Rep[facility] Medications Current Medications Medication Drug Class(es) Dates Sig (Normalized) Sig (Original) Acetaminophen (7 sources) Start: 05-08-2020 acetaminophen (TYLENOL) tablet 650 mg Start: 07-20-2019 End: 07-21-2019 acetaminophen (TYLENOL) tabl et 1,000 mg Start: 07-20-2019 End: 07-20-2019 acetaminophen (OFIRMEV) infu ifeanyi 1,000 mg Start: 07-12-2018 End: 07-15-2018 take 1 tablet by mouth every four hours as needed 650 mg, Oral, Every 4 hours PRN, mild pain, fever 100.4 F or greater, headaches, Starting Wed07/12/18 at 0021 Start: 03-15-2018 take 2 tablets by mo uth every four hours as needed acetaminophen 325 mg oral tablet ; 2 tab(s) orally every 4 hours, As needed, Pain - Mild (1-3) Quantity: 0 Refills: 0 Ordered: 15-Mar-2018 Laura Thomas Start: 15-Mar-2018 Generic Substitution Allowed acetaminophen 325 mg / butalbital 50 mg / caffeine 40 mg oral tablet (2 sources) Barbiturate, Central Nervous System Stimulant, Methylxanthine Start: 05-08-2020 dvjqwabjpb-hkontjcgurbqb-tig feine (FIORICET, ESGIC) per tablet 1 tablet Start: 01-25-2019 End: 02-04-2019 take 1 tablet by mouth once daily as needed for pain lqlntdjhrf-ijnljqabulnbl-ukaupijl (ESGIC ) 50-325-40 mg Take 1 (one) tablet by mouth daily as needed for pain or headaches (at onset of headache. No more than 2x's per week.) . 10 tablet 0 01/25/2019 02/04/2019 Active albuterol 0.833 mg/ml / ipratropium bromide 0.167 mg/ml inhalant solution (1 source) Anticholinergic, beta2-Adrenergic Agonist Start: 07-20-2019 ipratropium-albuterol (DUONEB) nebulizer solution 1 ampule aspirin 81 mg chewable tablet (20 sources) Nonsteroidal Anti-inflammatory Drug Start: 08-03-2019 aspirin 81 mg chewable tablet Chew and Swallow 1 (one) tablet (81 mg total) daily . 08/03/2019 Active Start: 07-23-2019 End: 07-22-2019 take 81 mg by mouth once daily 81 mg, Oral, DAILY, Fir st dose on Wed05/08/20 at 0900 Start: 07-20-2019 aspirin chewab le tablet 81 mg Start: 07-15-2018 End: 08-14-2018 take 1 tablet by mouth once daily aspirin 81 MG EC tablet Take 1 (one) tablet (81 mg total) by mouth daily . 30 tablet 0 07/15/2018 08/14/2018 Active Start: 02-19-2016 End: 07-15-2018 take 1 tablet by mouth once daily aspirin 325 MG EC tablet Take 1 tablet (325 mg total) by mouth daily. 30 tablet 0 02/19/2016 07/15/2018 Discontinued atorvastatin 40 mg oral tablet (6 sources) HMG-CoA Reductase Inhibitor Start: 07-20-2019 End: 07-22-2019 take 40 mg by mouth once daily 40 mg, Oral, NIGHTLY, First dose on Wed05/08/20 at 2100 baclofen 5 mg oral tablet (1 source) gamma-Aminobutyr ic Acid-ergic Agonist Start: 08-13-2022 take 1 tablet by mouth once daily baclofen 5 mg Tab Take 1 (one) tablet (5 mg total) by mouth nightly . 08/13/2022 Active blood pressure monitor Kit (8 sources) Start: 08-08-2019 blood pressure monitor Kit Indications: Essential hypertension Take BP daily and record . 1 each 08/08/2019 Active Start: 08-08-2019 blood pressure monitor Kit Indications: Essential hypertension Take BP daily and record . 1 each 0 08/08/2019 Active Blood Sugar Diagnostic, Drum (ACCU-CHEK COMPACT TEST) strp (6 sources) Start: 08-10-2013 Blood Sugar Diagnostic, Drum (ACCU-CHEK COMPACT TEST) strp Indications: Diabetes mellitus type II, uncontrolled Test before and after every meal and at HS daily as directed, diabetes uncontrolled, multiple doses insulin per day, 250.02 220 Strip 6 08/10/2013 Active Comment on above: Test before and afte r every meal and at HS daily as directed, diabetes uncontrolled, multiple doses insulin per day, 250.02 brompheniramine maleate 0.4 mg/ml / dextromethorphan hydrobromide 2 mg/ml / pseudoephedrine hydrochloride 6 mg/ml oral solution (3 sources) alpha-Adrenergic Agonist, Uncompetitive N-rupvgy-L-aspartat e Receptor Antagonist, Sigma-1 Agonist Start: 05-26-2021 End: 06-04-2021 take 10 mL by mouth every six hours as needed brompheniramine/ps eudoephedrine/dext romethorphan [id number]/5 mL oral syrup ; 10 milliliter(s) orally every 6 hours, As Needed for cough/congestion Quantity: 400 Refills: 0 Ordered: 26-May-2021 Sheila Montalvo Start: 26-May-2021 End: 04-Jun-2021 Generic Substitution Allowed Comments: May cause drowsiness. Alcohol may intensify this effect. Use care when operating dangerous machinery.Obtain medical advice before taking any non-prescription drugs as some may affect the action of this medication. Start: 05-24-2020 End: 05-28-2020 take 5 mL by mouth every six hours brompheniramine/pseudoephedrine/dextrome thorphan [id number]/5 mL oral syrup ; 5 milliliter(s) orally every 6 hours Quantity: 120 Refills: 0 Ordered: 24-May-2020 Tashia Garnett Start: 24-May-2020 End: 28-May-2020 Generic Substitution Allowed Comments: May cause drowsiness. Alcohol may intensify this effect. Use care when operating dangerous machinery.Obtain medical advice before taking any non-prescription drugs as some may affect the action of this medication. Comment on above: May cause drowsiness . Alcohol may intensify this effect. Use care when operating dangerous machinery.Obtain medical advice before taking any non-prescription drugs as some may affect the action of this medication. cephalexin 500 mg oral capsule (2 sources) Cephalosporin Antibacterial Start: End: take 1 capsule by mouth twice daily cephALEXin (KEFLEX) 500 mg capsule Indications: Burning with urination Take 1 capsule by mouth two times a day for 7 days. 14 capsule 12/24/2023 12/31/2023 Active cholecalciferol 1.25 mg oral capsule (7 sources) Vitamin D Start: take 1 capsule by mouth every week cholecalciferol, Vitamin D3, (VITAMIN D3) 50,000 unit cap capsule Take 1 capsule by mouth once each week. 24 capsule 03/14/2018 Active Start: 03-14-2018 End: 07-11-2018 cholecalciferol, vitamin D3, 50,000 unit capsule Take 50,000 Units by mouth . 0 03/14/2018 07/11/2018 Discontinued Comment on above: [facility]. clopidogrel 75 mg oral tablet (14 sources) P2Y12 Platelet Inhibitor Start: 09-07-2019 clopidogrel (PLAVIX) 75 mg tablet clopidogrel Clopidogrel Bisulfate Active 75 MG DAILY December 10, 2019 10:38pm 12-10-2019 [facility] ([id number]) 09/07/2019 Active Start: 09-07-2019 End: 01-22-2021 clopidogrel (PLAVIX) 75 mg t ablet clopidogrel Clopidogrel Bisulfate Active 75 MG DAILY December 10, 2019 10:38pm 12-10-2019 [facility] ([id number]) 0 09/07/2019 Active Comment on above: clopidogrel Clopidog rel Bisulfate Active 75 MG DAILY December 10, 2019 10:38pm 12-10-2019 [facility] ([id number]) ubidecarenone 200 mg oral capsule (13 sources) Start: 0 take 1 capsule by mouth once daily CO Q-10 200 mg cap Take 1 capsule by mouth once daily. 10/20/2019 Active co-enzyme Q-10 3 0 mg capsule Take 100 mg by mouth 2 (two) times a day . Active Comment on above: Take 1 capsule by [facility] once daily. empagliflozin 25 mg oral tablet (20 sources) Sodium-Glucose Cotransporter 2 Inhibitor Start: 11-17-19 18 take 1 tablet by mouth once daily JARDIANCE 25 mg tablet Take 1 tablet by mouth once daily. 11/14/2019 Active Comment on above: Take 1 tablet by [facility] once daily. 0.4 ml enoxaparin sodium 100 mg/ml prefilled syringe (3 sources) Low Molecular Weight Heparin Start: 05-08-20 20 inject 40 mg by subcutaneous injection once daily 40 mg, Subcutaneous, DAILY, First dose on Wed05/08/20 at 0900 Start: 07-21-2019 enoxaparin (LO VENOX) injection 40 mg Start: 07-12-2018 End: 07-12-2018 inject 40 mg by subcutaneous injection once daily 40 mg, Subcutaneous, Daily, First dose on Wed07/12/18 at 0800 Administer in abdomen unless otherwise directed by prescriber. Notify physician if patient refuses. ezetimibe 10 mg oral tablet (14 sources) Dietary Cholesterol Absorption Inhibitor Start: 08-03-2019 take 1 tablet by mouth once daily ezetimibe (ZETIA) 10 mg tablet Take 10 mg by mouth once daily. 08/03/2019 Active Comment on above: Take 10 mg by mouth once daily. FreeStyle Janee 2 Sensor Kit (2 sources) Start: 02-27-2022 FreeStyle Libr e 2 Sensor Kit USE TO CHECK BLOOD SUGARS 02/27/2022 Active Start: 02-27-2022 FreeStyle Libr e 2 Sensor Kit USE TO CHECK BLOOD SUGARS 0 02/27/2022 Active gabapentin 300 mg oral capsule (20 sources) Anti-epileptic Agent Start: 05-09-2020 End: 11-05-2020 take 2 capsules by mouth three times daily gabapentin (NEURONTIN) 300 MG capsule Take 2 capsules by mouth 3 times daily for 180 days. 90 capsule 3 05/09/2020 11/05/2020 Active Start: 05-09-2020 gabapentin (NE URONTIN) capsule 600 mg Start: 07-20-2019 End: 05-09-2020 take 300 mg by mouth four times daily 300 mg, Oral, 4 TIMES DAILY, First dose on Wed05/08/20 at 0900 Start: 07-12-2018 End: 07-15-2018 take 300 mg by mouth every eight hours 300 mg, Oral, Every 8 hours scheduled, First dose on Wed07/12/18 at 0025 gabapentin (NEUR ONTIN) 100 mg capsule Take 800 mg by mouth three times daily. 300MG TAB 5 TIMES PER DAY Active take 3 capsules by m outh three times daily, then take 3 capsules by mouth five times daily gabapentin (NEURONTIN) 100 mg capsule Take 300 mg by mouth three times daily. 300MG TAB 5 TIMES PER DAY 0 Active take 1 tablet by margoth th three times daily gabapentin 300 mg oral tablet ; 1 tab(s) orally 3 times a day Quantity: 0 Refills: 0 Ordered: 25-Feb-2018 Jocelyne Garay Generic Substitution Allowed End: 07-22-2019 take 3 capsules by mouth five times daily gabapentin (NEURONTIN) 100 MG capsule Take 300 mg by mouth 5 times daily. 0 07/22/2019 Discontinued (Stop Taking at Discharge) take 1 capsule by mo uth every eight hours gabapentin (NEURONTIN) 100 MG capsule Take 100 mg by mouth every 8 (eight) hours 3 tabs 3 x's daily . Active Comment on above: Take 300 mg by mouth three times daily. 300MG TAB 5 TIMES PER DAY Take 800 mg by mouth three times daily. 300MG TAB 5 TIMES PER DAY glucagon (rdna) 1 mg injection (2 sources) Antihypoglycemic Agent Start: 05-08-2020 glucagon (rDNA) injection 1 mg Start: 07-20-2019 glucagon (rDNA ) injection 1 mg 150 ml glucose 50 mg/ml inje ction (5 sources) Start: 05-08-2020 dextrose 5 % s olution Start: 05-08-2020 glucose (GLUTO SE) 40 % oral gel 15 g Start: 05-08-2020 dextrose 50 % IV solution Start: 07-20-2019 glucose (GLUTO SE) 40 % oral gel 15 g Start: 07-20-2019 dextrose 50 % IV solution 1 ml hydrALAZINE hydrochloride 20 mg/ml injection (1 source) Arteriolar Vasodilator Start: 07-20-2019 hydrALAZINE (APRESOLINE) injection 10 mg icosapent ethyl 1000 mg oral capsule (14 sources) Start: 08-03-2019 take 2 capsules by mouth twice daily icosapent ethyl 1 gram Take 2 capsules by mouth twice daily. 08/03/2019 Active Comment on above: Take 2 capsules by m outh twice daily. 3 ml insulin aspart, human 100 unt/ml pen injector (2 sources) Insulin Analog Start: 11-23-2021 insulin aspart U-100 100 unit/mL (3 mL) InPn Insulin Aspart U-100 (Novolog Flexpen U-100 Insulin) 100 unit/mL (3 mL) Insulin Pen Active 0 sliding scale dose SC DAILY November 22, 2021 11:00pm 11/23/2021 Active Start: 11-23-2021 insulin aspart U-100 100 unit/mL (3 mL) InPn Insulin Aspart U-100 (Novolog Flexpen U-100 Insulin) 100 unit/mL (3 mL) Insulin Pen Active 0 sliding scale dose SC DAILY November 22, 2021 11:00pm 0 11/23/2021 Active 3 ml insulin glargine 100 unt/ml pen injector (15 sources) Insulin Analog Start: 02-13-2022 Lantus Solosta r U-100 Insulin 100 unit/mL (3 mL) InPn 02/13/2022 Active Start: 07-12-2018 End: 07-15-2018 10 Units, Subcutaneous, Shira graves, First dose on Wed07/12/18 at 0200 Do not hold basal insulin without notifying physician. If patient NPO and BG < 100 before procedure, administer half of the glargine insulin (Lantus) dose; if BG is >100 administer full dose. Do not mix with other insulins in a syringe. Do NOT hold basal insulin without notifying physician Start: 01-29-2015 inject 10 [IU] by vaughn bcutaneous injection once daily insulin glargine (LANTUS SOLOSTAR) 100 unit/mL (3 mL) inpn Inject 10 Units subcutaneously once daily. 01/29/2015 Active Start: 01-29-2015 End: 01-25-2019 insulin glargine (LANTUS) 10 0 unit/mL (3 mL) InPn Inject 10 Units under the skin . 0 01/29/2015 01/25/2019 Discontinued (Discontinued by another clinician) Start: 01-29-2015 inject 10 [IU] by vaughn bcutaneous injection once daily insulin glargine (LANTUS SOLOSTAR) 100 unit/mL (3 mL) inpn Inject 10 Units subcutaneously once daily. 0 01/29/2015 Active inject 27 [IU] by vaughn bcutaneous injection once daily at bedtime Lantus 100 units/mL subcutaneous solution ; 27 unit(s) subcutaneous once a day (at bedtime) Quantity: 0 Refills: 0 Ordered: 25-Feb-2018 Jocelyne Garay Status: Other Generic Substitution Allowed Comment on above: Inject 10 Units subc utaneously once daily. 3 ml insulin lispro 100 unt/ml pen injector (9 sources) Insulin Analog Start: 3 inject 20 [IU] by subcutaneous injection three times daily at mealtime, then inject 80 [IU] by subcutaneous injection once daily HumaLOG KwikPen Insulin 100 unit/mL InPn INJECT 20 UNITS THREE TIMES DAILY UNDER THE SKIN WITH MEALS PLUS SLIDING SCALE. MAX 80 UNITS/DAY 07/09/2022 Active Start: 05-08-2020 End: 05-09-2020 insulin lispro (HUMALOG) injection vial 0-6 Units Start: 07-21-2019 insulin lispro (HUMALOG) injection vial 0-6 Units Start: 07-12-2018 End: 07-15-2018 inject 1 dose by subcutaneous injection three times daily before mealtime 0-30 Units, Subcutaneous, 3 times daily before meals, First dose on Wed07/12/18 at 0730 Dose should be given 10-15 minutes before a meal. If poor oral intake, nausea or blood glucose value < 80 before meal, give of the dose (rounded up to nearest unit) immediately after meal completed. If patient skipping meal, hold base prandial dose and continue to use corrective insulin as ordered. Once diet resumed, total base prandial + corrective doses may be given. Prandial Insulin Dosing Method: NO Prandial Dose - Corrective Scale ONLY Corrective Insulin Regimen (select desired scale to cover BG result): Conservative Scale For Downtime Calculator, use: Insulin SC MEALtime PREprandial Start: 07-12-2018 End: 07-15-2018 inject 1 dose by subcutaneous injection once daily 0-15 Units, Subcutaneous, At bedtime, First dose on Wed07/12/18 at 0025 For Nightly Insulin Dose Coverage, use: CORRECTIVE (Only) for BG greater than 300 Nightly CORRECTIVE Dose Method: Specific Corrective Dose Nightly Specific CORRECTIVE dose (units of insulin): 2 For Downtime Calculator, use: Insulin SC NIGHTtime Insulin [place], Disposable, (PEN NEEDLE) 29 x 1/2 Ndle (6 sources) Start: 04-09-2012 Insulin Needle s, Disposable, (PEN NEEDLE) 29 x 1/2 Ndle Indications: Type II or unspecified type diabetes mellitus without mention of complication, uncontrolled use four times daily with each dose of insulin ac and hs 200 Each 6 04/09/2012 Active Comment on above: use four times daily with each dose of insulin ac and hs 4 ml labetalol hydrochloride 5 mg/ml cartridge (1 source) beta-Adrenergi c James Start: 07-20-2019 labetalol (NORMODYNE;TRANDATE) injection 10 mg lacosamide 50 mg oral tablet (3 sources) Anti-epileptic Agent Start: 11-30-2023 take 1 tablet by mouth twice daily lacosamide (VIMPAT) 50 mg Tab Indications: Seizures (HCC) Take 1 (one) tablet (50 mg total) by mouth 2 (two) times a day (Days supply per fill: 30) . 60 tablet 5 11/30/2023 Active Start: 01-12-2023 End: 11-30-2023 take 1 tablet by mouth twice daily lacosamide (Vimpat) 100 mg Tab Indications: Seizures (HCC) Take 1 (one) tablet (100 mg total) by mouth 2 (two) times a day (Days supply per fill: 30) . 60 tablet 5 01/12/2023 11/30/2023 Discontinued Start: 03-24-2022 take 1 tablet by margoth th twice daily lacosamide (Vimpat) 50 mg Tab Indications: Seizures (HCC) Take 1 (one) tablet (50 mg total) by mouth 2 (two) times a day (Days supply per fill: 30) . 60 tablet 5 03/24/2022 Active 1 ml LORazepam 2 mg/ml injection (1 source) Benzodiazepine Start: 05-08-2020 2 mg, Intravenous, EVERY 4 HOURS PRN, Seizures, Starting 05/08/20 at 0227 meloxicam 15 mg oral tablet (8 sources) Nonsteroidal Anti-inflammatory Drug Start: 01-12-2020 take 1 tablet by mouth once daily meloxicam (MOBIC) 15 mg tablet Take 15 mg by mouth once daily. 01/12/2020 Active Comment on above: Take 15 mg by mouth once daily. methylPREDNISolone 4 mg oral tablet (1 source) Corticosteroid Start: 12-11-2019 End: 12-17-2019 methylPREDNISolone (MEDROL DOSEPACK) 4 MG tablet Take by mouth. 1 kit 0 12/11/2019 12/17/2019 Active Mounjaro 10 mg/0.5 mL Pen (1 source) Start: 08-11-2022 inject 10 mg by subcutaneous injection every week Mounjaro 10 mg/0.5 mL Pen INJECT 10 MG (0.5 ML) SUBCUTANEOUSLY EVERY WEEK 08/11/2022 Active omeprazole 40 mg delayed release oral capsule (10 sources) Proton Pump Inhibitor Start: 01-22-2020 take 1 capsule by mouth once daily omeprazole (PRILOSEC) 40 mg capsule Take 1 capsule by mouth once daily. 30 capsule 3 01/22/2020 Active Start: 02-18-2018 End: 01-25-2019 take 1 capsule by mouth once daily omeprazole (PRILOSEC) 40 MG capsule Take 40 mg by mouth daily . 2 02/18/2018 01/25/2019 Discontinued (Discontinued by another clinician) Comment on above: Take 1 capsule by mo [facility] once daily. pentoxifylline 400 mg extended release oral tablet (6 sources) Blood Viscosity Cheese Cutter Start: 06-14-19 20 take 1 tablet by mouth three times daily at mealtime pentoxifylline ER (TRENTAL) 400 mg CR tablet Take 1 tablet by mouth three times daily with meals. 270 tablet 2 06/14/2019 Active Comment on above: Take 1 tablet by [facility] three times daily with meals. polyethylene glycol 3350 17770 mg powder for oral solution (2 sources) Osmotic Laxative Start: 05-08-20 20 17 g, Oral, DAILY PRN, Constipation, Starting 05/08/20 at 0224 First line therapy for constipation Start: 07-21-2019 polyethylene g lycol (GLYCOLAX) packet 17 g pravastatin sodium 20 mg oral tablet (13 sources) HMG-CoA Reductase Inhibitor Start: 10-20-2019 take 1 tablet by mouth once daily at bedtime pravastatin (PRAVACHOL) 20 mg tablet Take 20 mg by mouth daily at bedtime. 10/20/2019 Active Comment on above: Take 20 mg by mouth daily at bedtime. Promethazine (2 sources) Phenothiazine Start: 05-08-2020 promethazine (PHENERGAN) tablet 12.5 mg Start: 07-20-2019 promethazine ( PHENERGAN) tablet 12.5 mg repaglinide 2 mg oral tablet (12 sources) Glinide Start: 08-03-2019 take 1 tablet by mouth once daily at mealtime REPaglinide (PRANDIN) 2 MG tablet Take 1 (one) tablet (2 mg total) by mouth Daily With Food . 08/03/2019 Active Start: 07-20-2019 repaglinide (P RANDIN) tablet 0.5 mg Repaglinide (PRA NDIN PO) Take by mouth Patient unsure what dose 0 Active rimegepant 75 mg disintegrat ing oral tablet (2 sources) Start: 03-24-2022 rimegepant (Nu rtec ODT) 75 mg ODT Dissolve 1 (one) tablet (75 mg total) on top of tongue as needed (at onset of migraine) . 8 tablet 5 03/24/2022 Active 3 ml sodium chloride 9 mg/ml injection (3 sources) Start: 05-08-2020 10 mL, Intrave nous, EVERY 12 HOURS SCHEDULED (2 times per day), First dose on Wed05/08/20 at 0900 Start: 05-08-2020 take 10 mL intraveno us route once as needed 10 mL, Intravenous, PRN, Line Care, After every IV line use, Starting Wed05/08/20 at 0224 Start: 07-20-2019 End: 07-21-2019 0.9 % sodium chloride infusi on tirzepatide (MOUNJARO) 12.5 mg/0.5 mL pen injector (5 sources) inject 12.5 mg by subcutaneous injection every week tirzepatide (MOUNJARO) 12.5 mg/0.5 mL pen injector Inject 12.5 mg subcutaneously one time a week. Active inject 12.5 mg by vaughn bcutaneous injection every week tirzepatide (MOUNJARO) 12.5 mg/0.5 mL pe n injector Inject 12.5 mg subcutaneously one time a week. 0 Active Comment on above: Inject 12.5 mg subcu taneously one time a week. UNABLE TO FIND (9 sources) UNABLE TO FIND R elamorelin 10 units 2 x's a day . Active UNABLE TO FIND R elamorelin 10 units 2 x's a day . 0 Active valACYclovir 500 mg oral tablet (1 source) Herpesvirus Nucleoside Analog DNA Polymerase Inhibitor, Herpes Simplex Virus Nucleoside Analog DNA Polymerase Inhibitor, Herpes Zoster Virus Nucleoside Analog DNA Polymerase Inhibitor Start: 05-18-2022 valACYclovir (VALTR EX) 500 MG tablet Take 1 (one) tablet (500 mg total) by mouth . 05/18/2022 Active Completed/Discontinued Medications Medication Drug Class(es) Dates Sig (Normalized) Sig (Original) acetaminophen 300 mg / codeine phosphate 30 mg oral tablet (6 sources) Opioid Agonist Start: 07-12-2018 End: 07-15-2018 take 1 tablet by mouth every four hours as needed 1 tablet, Oral, Every 4 hours PRN, moderate to severe pain, Starting Wed07/12/18 at 0021 End: 01-25-2019 take 1 tablet by mouth every four hours as needed acetaminophen-codeine (TYLENOL #3) 300-3 0 mg per tablet Take 1 tablet by mouth every 4 to 6 hours as needed for pain . 0 01/25/2019 Discontinued (Discontinued by another clinician) End: 04-07-2017 take 1 tablet by mouth twice daily as needed for pain acetaminophen-codeine (TYLENOL #3) 300-3 0 mg per tablet Take 1 tablet by mouth 2 (two) times a day as needed for pain . 04/07/2017 Discontinued acetaminophen 325 mg / oxyCODONE hydrochloride 5 mg oral tablet (8 sources) Opioid Agonist Start: 05-09-2020 End: 05-09-2020 oxyCODONE-acetaminophen (PERCOCET) 5-325 MG per tablet 1 tablet Start: 03-24-2020 take 1 tablet by margoth th every six hours as needed oxyCODONE-acetaminophen (PERCOCET) 5-325 mg per tablet Take 1 (one) tablet by mouth every 6 (six) hours as needed for pain . 03/24/2020 Active Start: 12-11-2019 End: 12-14-2019 take 1 tablet by mouth every six hours as needed for pain, then take 1 tablet by mouth as needed for pain oxyCODONE-acetaminophen (PERCOCET) 5-325 MG per tablet Indications: Acute midline low back pain with bilateral sciatica Take 1 tablet by mouth every 6 hours as needed for Pain for up to 3 days. Intended supply: 3 days. Take lowest dose possible to manage pain 12 tablet 0 12/11/2019 12/14/2019 Active acyclovir 400 mg oral tablet (1 source) Herpesvirus Nucleoside Analog DNA Polymerase Inhibitor, Herpes Simplex Virus Nucleoside Analog DNA Polymerase Inhibitor, Herpes Zoster Virus Nucleoside Analog DNA Polymerase Inhibitor Start: 12-15-2016 ACYCLOVIR 400 MG TABS One tablet by mouth twice daily for prevention or Three times a day x 5 days for treatment of active outbreak ACYCLOVIR [id number] Eli Veronica MD cyclobenzaprine hydrochloride 10 mg oral tablet (5 sources) Muscle Relaxant Start: 05-17-2019 End: 05-26-2019 take 1 tablet by mouth three times daily cyclobenzaprine 10 mg oral tablet ; 1 tab(s) orally 3 times a day Quantity: 30 Refills: 0 Ordered: 17-May-2019 Fam Gardner Start: 17-May-2019 End: 26-May-2019 Status: Other Generic Substitution Allowed Comments: May cause drowsiness. Alcohol may intensify this effect. Use care when operating dangerous machinery.Obtain medical advice before taking any non-prescription drugs as some may affect the action of this medication. Start: 07-14-2018 End: 07-25-2018 take 1 tablet by mouth three times daily as needed for muscle spasms cyclobenzaprine (FLEXERIL) 10 MG tablet Take 1 (one) tablet (10 mg total) by mouth 3 (three) times a day as needed for muscle spasms . 30 tablet 0 07/15/2018 07/25/2018 Active Comment on above: May cause drowsiness . Alcohol may intensify this effect. Use care when operating dangerous machinery.Obtain medical advice before taking any non-prescription drugs as some may affect the action of this medication. 1 ml dexamethasone phosphate 4 mg/ml injection (1 source) Corticosteroid Start: End: dexamethasone (DECADRON) injection 4 mg diclofenac sodium 0.01 mg/mg topical gel (4 sources) Nonsteroidal Anti-inflammatory Drug Start: End: diclofenac sodium 1 % Gel Apply 1-2 grams topically to affected area 4 times per day NEEDED for pain.] 3 04/16/2018 01/25/2019 Discontinued (Discontinued by another clinician) doxycycline hyclate 100 mg oral tablet (2 sources) Tetracycline-class Drug Start: End: take 1 tablet by mouth twice daily doxycycline hyclate 100 mg oral tablet ; 1 tab(s) orally 2 times a day Quantity: 20 Refills: 0 Ordered: 24-May-2020 Tashia Garnett Start: 24-May-2020 End: 02-Jun-2020 Generic Substitution Allowed Comments: Avoid prolonged or excessive exposure to direct and/or artificial sunlight while taking this medication.Do not take this drug if you are .Finish all this medication unless otherwise directed by prescriber.Medicatio n should be taken with plenty of water. Comment on above: Avoid prolonged or e xcessive exposure to direct and/or artificial sunlight while taking this medication.Do not take this drug if you are .Finish all this medication unless otherwise directed by prescriber.Medication should be taken with plenty of water. 2 ml fentaNYL 0.05 mg/ml injection (1 source) Opioid Agonist Start: End: fentaNYL (SUBLIMAZE) injection 25 mcg Start: 07-20-2019 End: 07-20-2019 fentaNYL (SUBLIMAZE) injecti on 25 mcg gadobutrol (GADAVIST) inject ion 9 mL (2 sources) Start: 07-22-2019 End: 07-22-2019 gadobutrol (GADAVIST) inject ion 9 mL Start: 07-20-2019 End: 07-20-2019 gadobutrol (GADAVIST) inject ion 9 mL 1 ml HYDROmorphone hydrochloride 1 mg/ml cartridge (2 sources) Opioid Agonist Start: 12-11-2019 End: 12-11-2019 HYDROmorphone (DILAUDID) injection 1 mg Start: 12-11-2019 End: 12-11-2019 HYDROmorphone (DILAUDID) inj ection 0.5 mg ibuprofen 600 mg oral tablet (1 source) Nonsteroidal Anti-inflammatory Drug Start: 07-21-2019 End: 07-21-2019 ibuprofen (ADVIL;MOTRIN) tablet 600 mg 1 ml ketorolac tromethamine 15 mg/ml cartridge (5 sources) Nonsteroidal Anti-inflammatory Drug, Cyclooxygenase Inhibitor Start: 05-08-2020 End: 05-09-2020 ketorolac (TORADOL) injection 15 mg Start: 12-11-2019 End: 12-11-2019 ketorolac (TORADOL) injectio n 30 mg Start: 07-22-2019 End: 07-22-2019 ketorolac (TORADOL) injectio n 30 mg Start: 07-22-2019 End: 07-22-2019 ketorolac (TORADOL) injectio n 15 mg Lidocaine (1 source) Antiarrhythmic, Amide Local Anesthetic Start: 07-13-2018 End: 07-13-2018 lidocaine 1% (XYLOCAINE) 10 mg/mL (1 %) injection 10 mL 3 ml liraglutide 6 mg/ml pen injector (6 sources) GLP-1 Receptor Agonist End: 01-25-2019 liraglutide (VICTOZA 3-ENEIDA) 0.6 mg/0.1 mL (18 mg/3 mL) Pen Inject 1.8 mg under the skin daily . 0 01/25/2019 Discontinued (Discontinued by another clinician) Medrol Dosepak 4 mg oral tablet (2 sources) Start: 06-01-2019 End: 06-06-2019 Medrol Dosepak 4 mg oral tablet ; take as directed on package labeling Quantity: 1 Refills: 0 Ordered: 01-Jun-2019 Fam Gardner Start: 01-Jun-2019 End: 06-Jun-2019 Status: Other Generic Substitution Allowed Comments: It is very important that you take or use this exactly as directed. Do not skip doses or discontinue unless directed by your doctor.Obtain medical advice before taking any non-prescription drugs as some may affect the action of this medication.Take with food or milk. Comment on above: It is very important that you take or use this exactly as directed. Do not skip doses or discontinue unless directed by your doctor.Obtain medical advice before taking any non-prescription drugs as some may affect the action of this medication.Take with food or milk. metoclopramide 5 mg oral tablet (1 source) Dopamine-2 Receptor Antagonist Start: 04-04-2016 End: 04-07-2017 take 1 tablet by mouth four times daily at mealtime metoclopramide (REGLAN) 5 MG tablet Take 1 tablet (5 mg total) by mouth 4 (four) times a day with meals and nightly. 120 tablet 1 04/04/2016 04/07/2017 Discontinued 1 ml morphine sulfate 4 mg/ml cartridge (1 source) Opioid Agonist Start: 07-20-2019 End: 07-21-2019 morphine (PF) injection 2 mg naloxone (NARCAN) injection 0.1 mg (1 source) Start: 07-12-2018 End: 07-15-2018 naloxone (NARCAN) injection 0.1 mg 2 ml ondansetron 2 mg/ml injection (20 sources) Serotonin-3 Receptor Antagonist Start: 12-11-2019 End: 12-11-2019 ondansetron (ZOFRAN) injection 4 mg Start: 05-17-2019 take 1 tablet by margoth th every eight hours Zofran ODT 4 mg oral tablet, disintegrating ; 1 tab(s) orally every 8 hours Quantity: 12 Refills: 0 Ordered: 17-May-2019 Fam Gardner Start: 17-May-2019 Status: Other Generic Substitution Allowed Start: 07-12-2018 End: 07-15-2018 take 4 mg intravenous route every six hours as needed 4 mg, Intravenous, Every 6 hours PRN, nausea, vomiting, Starting Wed07/12/18 at 0021 Start: 12-21-2016 take 1 tablet by margoth th every twelve hours as needed ondansetron (ZOFRAN, HYDROCHLORIDE,) 4 mg tablet Take 1 tablet by mouth every 12 hours as needed for Nausea/Vomiting (for nausea.). 30 tablet 1 12/21/2016 Active Start: 03-23-2016 End: 07-15-2018 take 1 tablet by mouth every four hours as needed for nausea ondansetron (ZOFRAN-ODT) 4 MG disintegrating tablet Dissolve 1 (one) tablet (4 mg total) on top of tongue every 4 (four) hours as needed for nausea . 03/23/2016 Active Comment on above: Take 1 tablet by margoth th every 12 hours as needed for Nausea/Vomiting (for nausea.). pantoprazole 40 mg delayed release oral tablet (1 source) Proton Pump Inhibitor Start: 04-04-20 16 End: 04-07-20 17 take 1 tablet by mouth twice daily pantoprazole (PROTONIX) 40 MG tablet Take 1 tablet (40 mg total) by mouth 2 (two) times a day. 60 tablet 1 04/04/2016 04/07/2017 Discontinued perflutren lipid microspheres (DEFINITY) injection 1.65 mg (1 source) Start: 07-20-19 End: 07-21-19 20 perflutren lipid microspheres (DEFINITY) injection 1.65 mg regular insulin, human 100 unt/ml injectable solution (2 sources) Insulin Start: 07-20-19 End: 07-21-19 20 insulin regular (HUMULIN R;NOVOLIN R) injection 0-12 Units thyroid (snf) 15 mg oral tablet (20 sources) Start: 07-13-19 End: 07-16-19 19 take 30 mg by mouth once daily in the morning 30 mg, Oral, Every morning, First dose on Wed07/12/18 at 0600 For patients on continuous tube feed: Hold TF from 1 hr before until 1 hr after each dose. TF rate may need adjustment to meet caloric needs. take 1 tablet by mouth once chrissy y thyroid (ARMOUR THYROID) 30 mg tablet Take 30 mg by mouth once daily. Active Comment on above: Take 30 mg by mouth once daily. topiramate 100 mg oral tablet (20 sources) Anti-epileptic Agent Start: 07-11-2020 take 1 tablet by mouth twice daily Topamax 100 mg oral tablet ; 1 tab(s) orally 2 times a day Quantity: 60 Refills: 0 Ordered: 11-Jul-2020 Loreto Villar Start: 11-Jul-2020 Generic Substitution Allowed Comments: Do not chew, break, or crush.Do not drink alcoholic beverages when taking this medication.Do not take this drug if you are .It is very important that you take or use this exactly as directed. Do not skip doses or discontinue unless directed by your doctor.May cause drowsiness or dizziness.Medication should be taken with plenty of water.Obtain medical advice before taking any non-prescription drugs as some may affect the action of this medication.Swallow whole. Do not crush.This drug may impair the ability to drive or operate machinery. Use care until you become familiar with its effects. 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 60 tablet 11 01/25/2019 Active Start: 07-12-2018 End: 07-15-2018 50 mg, Oral, Daily, First do se on Wed07/12/18 at 0900 Do Not Crush or Chew if administering orally due to bitter taste. May be crushed if given via tube. Start: 03-01-2018 take 1 tablet by margoth th once daily in the morning topiramate 50 mg oral tablet ; 1 tab(s) orally once a day (in the morning) Quantity: 0 Refills: 0 Ordered: 01-Mar-2018 Rd Reardon Start: 01-Mar-2018 Generic Substitution Allowed Start: 04-07-2017 End: 05-09-2020 take 1 tablet by mouth once daily at bedtime topiramate 100 mg oral tablet ; 1 tab(s) orally once a day (at bedtime) Quantity: 0 Refills: 0 Ordered: 01-Mar-2018 Rd Reardon Start: 01-Mar-2018 Generic Substitution Allowed Start: 04-07-2017 End: 01-25-2019 take 2 tablets by mouth once daily in the morning topiramate (TOPAMAX) 25 MG tablet Indications: 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 150 tablet 5 09/30/2016 04/07/2017 Discontinued Start: 07-26-2015 End: 05-09-2020 take 1 tablet by mouth once daily 25 mg, Oral, DAILY, First dose on Wed05/08/20 at 0900 It is not recommended to crush, break, or chew immediate release tablets due to bitter taste. Comment on above: Do not chew, break, or crush.Do not drink alcoholic beverages when taking this medication.Do not take this drug if you are .It is very important that you take or use this exactly as directed. Do not skip doses or discontinue unless directed by your doctor.May cause drowsiness or dizziness.Medication should be taken with plenty of water.Obtain medical advice before taking any non-prescription drugs as some may affect the action of this medication.Swallow whole. Do not crush.This drug may impair the ability to drive or operate machinery. Use care until you become familiar with its effects. Take 50 mg by mouth once daily. traMADol hydrochloride 50 mg oral tablet (7 sources) Opioid Agonist Start: 07-13-19 End: 01-26-20 take 1 tablet by mouth every eight hours as needed 50 mg, Oral, Every 8 hours PRN, moderate to severe pain, Starting Wed07/12/18 at 0021 take 1 tablet by margoth th twice daily as needed traMADol 50 mg oral tablet ; 1 tab(s) or ally 2 times a day, As Needed Quantity: 0 Refills: 0 Ordered: 25-Feb-2018 Jocelyne Garay Generic Substitution Allowed Problems Active Problems Problem Classification Problem Date Documented Da te Episodic/Chronic Acute cerebrovascular disease (20 sources) Ischemic stroke; Translations: [Cerebral infarction, unspecified] Onset: 0 07-20-2019 Chronic Anxiety disorders (6 sources) Posttraumatic stress disorder; Translations: [Post-traumatic stress disorder, unspecified] Onset: 0 01-19-2020 Chronic Chronic obstructive pulmonary disease and bronchiectasis (2 sources) Bronchitis 05-26-2021 Episodic Comment on above: BRONCHITIS Diabetes mellitus without complication (20 sources) Type 2 diabetes mellitus; Translations: [Type 2 diabetes mellitus without complications] Onset: 8 04-18-2015 Chronic Disorders of lipid metabolism (20 sources) Hyperlipidemia; Translations: [Hyperlipidemia, unspecified] Onset: 0 04-18-2015 Chronic Epilepsy; convulsions (7 sources) Epilepsy, unspecified, not intractable, without status epilepticus; 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] Onset: 6 05-05-2021 Chronic Esophageal disorders (6 sources) Gastroesophageal reflux disease; Translations: [Gastro-esophageal reflux disease without esophagitis] Onset: 0 01-19-2020 Chronic Essential hypertension (10 sources) Essential hypertension; Translations: [Essential (primary) hypertension] Onset: 0 08-08-2019 Chronic Fever of unknown origin (1 source) Fever; Translations: [Fever, unspecified] 07-15-2023 Episodic Genitourinary symptoms and ill-defined conditions (2 sources) Scalding pain on urination ; Translations: [Dysuria] 07-15-2023 Episodic Headache, including migraine (20 sources) Hemiplegic migraine; Translations: [Refractory migraine] Onset: 6 02-19-2016 Chronic Headache; including migraine (2 sources) Acute headache; Translations: [Acute nonintractable headache] 05-08-2020 Hepatitis (6 sources) Nonalcoholic steatohepatitis; Translations: [Nonalcoholic steatohepatitis (BURKS)] Onset: 8 06-17-2017 Chronic Other circulatory disease (1 source) Low blood pressure; Translations: [Hypotension, unspecified] 07-15-2023 Episodic Other gastrointestinal disorders (1 source) Esophageal dysphagia; Translations: [Other dysphagia] 01-15-2023 Episodic Other hereditary and degenerative nervous system conditions (6 sources) Restless legs; Translations: [Restless legs syndrome] Onset: 0 01-19-2020 Chronic Other injuries and conditions due to external causes (1 source) Injury of head; Translations: [Unspecified injury of head, initial encounter] 10-14-2023 Episodic Other lower respiratory disease (2 sources) Cough; Translations: [Cough] 05-26-2021 Episodic Other nervous system disorders (9 sources) Chronic pain syndrome; Translations: [Chronic pain syndrome] Onset: 3 04-18-2015 Chronic Other nervous system disorders (3 sources) Other disturbances of skin sensation; Translations: [Decreased sensation of lower extremity] Onset: 9 Episodic Other nutritional; endocrine; and metabolic disorders (1 source) Obesity, unspecified; Translations: [Obesity, unspecified] Onset: 2 Chronic Other nutritional; endocrine; and metabolic disorders (6 sources) Severe obesity; Translations: [Morbid (severe) obesity due to excess calories] Onset: 8 01-19-2020 Chronic Other screening for suspected conditions (not mental disorders or infectious disease) (1 source) No current problems or disability 12-15-2016 Other upper respiratory infections (2 sources) Acute rhinosinusitis; Translations: [Acute sinusitis, unspecified] Onset: 2 05-26-2021 Episodic Paralysis (17 sources) Paresis of lower extremity; 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] Onset: 8 04-18-2018 Chronic Paralysis (3 sources) Weakness of right arm; Translations: [Right arm weakness] Onset: 6 07-15-2015 Residual codes; unclassified (6 sources) Obstructive sleep apnea syndrome; Translations: [Obstructive sleep apnea (adult) (pediatric)] Onset: 2 05-05-2021 Chronic Thyroid disorders (20 sources) Hypothyroidism; Translations: [Hypothyroidism, unspecified] Onset: 4 04-18-2015 Chronic Transient cerebral ischemia (20 sources) Transient cerebral ischemia; Translations: [Transient cerebral ischemic attack, unspecified] Onset: 6 Resolved: 6 02-18-2016 Chronic Unclassified (20 sources) Dissociative disorder; 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] Onset: 7 Resolved: 1 07-15-2015 Chronic Unclassified (2 sources) CHEST PRESSURE, FATIGUE, BODY ACHES 12-23-2020 Comment on above: CHEST PRESSURE, FATI MARCO, BODY ACHES Unclassified (6 sources) Type 2 diabetes mellitus without complication; Translations: [Uncontrolled type 2 diabetes mellitus without complication, with long-term current use of insulin] Onset: 8 06-17-2017 Viral infection (6 sources) Genital herpes simplex; Translations: [Herpesviral infection of urogenital system, unspecified] Onset: 4 02-12-2014 Chronic Past or Other Problems Problem Classification Problem Date Documented Da te Episodic/Chronic Abdominal pain (3 sources) Abdominal pain; Translations: [Unspecified abdominal pain] Onset: 05-27-2005 Resolved: 02-14-2011 02-14-2011 Episodic Calculus of urinary tract (3 sources) Kidney stone; Translations: [Calculus of kidney] Onset: 05-27-2005 Resolved: 02-14-2011 02-14-2011 Episodic Cardiac and circulatory congenital anomalies (7 sources) Congenital arteriovenous malformation; Translations: [Vascular disorder] Onset: 03-15-2006 Resolved: 02-23-2012 07-14-2015 Chronic Cardiac and circulatory congenital anomalies (6 sources) H/O: cardiovascular disease; Translations: [Personal history of (corrected) congenital malformations of heart and circulatory system] Onset: 01-19-2020 01-19-2020 Episodic Deficiency and other anemia (6 sources) Anemia; Translations: [Anemia, unspecified] Onset: 01-09-2010 01-09-2010 Episodic E Codes: Fall (1 source) Fall on same level from slipping, tripping and stumbling without subsequent striking against object, initial encounter; Translations: [Fall on same level from slipping, tripping and stumbling without subsequent striking against object, initial encounter] Onset: 04-09-2022 Episodic E Codes: Unspecified (1 source) Activity, walking an animal; Translations: [Activity, walking an animal] Onset: 04-09-2022 Episodic Epilepsy; convulsions (20 sources) Seizure; Translations: [Unspecified convulsions] Onset: 04-07-2017 04-07-2017 Episodic Fluid and electrolyte disorders (4 sources) Metabolic acidosis, increased anion gap (IAG); Translations: [High anion gap metabolic acidosis] Onset: 07-20-2019 07-20-2019 Episodic Gastritis and duodenitis (3 sources) Acute gastritis; Translations: [Acute gastritis without bleeding] Onset: 01-09-2010 Resolved: 02-23-2012 02-23-2012 Episodic Gastrointestinal hemorrhage (3 sources) Hematochezia; Translations: [Melena] Onset: 09-22-2006 Resolved: 02-14-2011 02-14-2011 Episodic Headache, including migraine (20 sources) Headache; Translations: [Headache] Onset: 02-16-2007 04-01-2016 Episodic Malaise and fatigue (3 sources) Weakness; Translations: [Weakness] Onset: 12-17-2021 Episodic Menstrual disorders (3 sources) Dysmenorrhea; Translations: [Dysmenorrhea, unspecified] Onset: 09-06-2014 Resolved: 06-05-2016 06-05-2016 Chronic Mood disorders (3 sources) Depressive disorder; Translations: [Other specified depressive episodes] Onset: 09-29-2007 Resolved: 02-14-2011 02-14-2011 Chronic Other aftercare (1 source) intermodal customer service (current) use of insulin; Translations: [intermodal customer service (current) use of insulin] Onset: 04-09-2022 Episodic Other and ill-defined cerebrovascular disease (3 sources) Cerebrovascular disease; Translations: [Other cerebrovascular disease] Onset: 03-02-2006 Resolved: 02-14-2011 02-14-2011 Chronic Other and unspecified benign neoplasm (3 sources) Benign neoplasm of soft tissue; Translations: [Benign neoplasm of connective and other soft tissue, unspecified] Onset: 02-07-2008 Resolved: 02-14-2011 02-14-2011 Episodic Other circulatory disease (4 sources) Arteriovenous disorder; Translations: [Arterio-venous malformation] Onset: 07-14-2015 07-14-2015 Episodic Other circulatory disease (6 sources) Vascular disorder; Translations: [Arterio-venous malformation] Onset: 07-14-2015 07-14-2015 Episodic Other congenital anomalies (3 sources) Congenital disease; Translations: [Other congenital malformations of musculoskeletal system] Onset: 12-27-2007 Resolved: 02-14-2011 02-14-2011 Chronic Other connective tissue disease (12 sources) Other symptoms and signs involving the musculoskeletal system; Translations: [Muscle weakness of upper limb] Onset: 07-14-2015 07-15-2015 Episodic Other connective tissue disease (12 sources) Pain in left arm; Translations: [Pain in left arm] Onset: 07-19-2018 07-19-2018 Episodic Other connective tissue disease (6 sources) Muscle weakness of limb; Translations: [Other symptoms and signs involving the musculoskeletal system] Onset: 04-18-2018 04-18-2018 Episodic Other connective tissue disease (2 sources) Weakness of right arm; Translations: [Other symptoms and signs involving the musculoskeletal system] Onset: 07-14-2015 07-15-2015 Episodic Other connective tissue disease (2 sources) Paraparesis; Translations: [Other symptoms and signs involving the musculoskeletal system] Onset: 07-11-2018 07-11-2018 Episodic Other connective tissue disease (1 source) Fibromyalgia; Translations: [Fibromyalgia] Onset: 04-09-2022 Episodic Other connective tissue disease (1 source) Facial weakness; Translations: [Facial weakness] Onset: 12-17-2021 Episodic Other connective tissue disease (6 sources) Fibromyalgia; Translations: [Fibromyalgia] Onset: 01-19-2020 01-19-2020 Episodic Other connective tissue disease (3 sources) Pain in limb; Translations: [Pain in unspecified limb] Onset: 11-08-2007 Resolved: 02-14-2011 02-14-2011 Episodic Other connective tissue disease (3 sources) Tendinitis; Translations: [Enthesopathy, unspecified] Onset: 10-09-2009 Resolved: 02-14-2011 02-14-2011 Episodic Other disorders of stomach and duodenum (6 sources) Gastroparesis syndrome; Translations: [Gastroparesis] Onset: 06-17-2016 06-17-2016 Episodic Other female genital disorders (17 sources) Abnormal uterine and vaginal bleeding, unspecified; Translations: [Abnormal uterine bleeding] Onset: 09-06-2014 Resolved: 06-05-2016 04-18-2015 Chronic Other gastrointestinal disorders (6 sources) Dysphagia; Translations: [Dysphagia, unspecified] Onset: 01-19-2020 01-19-2020 Episodic Other gastrointestinal disorders (1 source) Other dysphagia; Translations: [Esophageal dysphagia] Onset: 01-19-2020 Episodic Other liver diseases (3 sources) Elevated levels of transaminase & lactic acid dehydrogenase; Translations: [Nonspecific elevation of levels of transaminase or lactic acid dehydrogenase (LDH)] Resolved: 02-14-2011 02-14-2011 Episodic Other nervous system disorders (3 sources) Spinal cord disease; Translations: [Other specified diseases of spinal cord] Onset: 03-24-2007 Resolved: 02-23-2012 02-23-2012 Chronic Other nervous system disorders (11 sources) Chronic pain syndrome; Translations: [Chronic pain syndrome] Onset: 04-27-2013 04-18-2015 Episodic Other non-traumatic joint disorders (2 sources) Pain in right shoulder; Translations: [Pain in right shoulder] Onset: 04-09-2022 Episodic Other nutritional; endocrine; and metabolic disorders (7 sources) Obesity; Translations: [Obesity, unspecified] Onset: 06-26-2006 Resolved: 02-14-2011 07-20-2019 Chronic Other screening for suspected conditions (not mental disorders or infectious disease) (3 sources) Liver function tests abnormal; Translations: [Abnormal results of liver function studies] Onset: 12-01-2007 Resolved: 02-14-2011 02-14-2011 Episodic Residual codes; unclassified (1 source) Acquired absence of other specified parts of digestive tract; Translations: [Acquired absence of other specified parts of digestive tract] Onset: 04-09-2022 Episodic Residual codes; unclassified (1 source) Acquired absence of other genital organ(s); Translations: [Acquired absence of other genital organ(s)] Onset: 04-09-2022 Episodic Skin and subcutaneous tissue infections (6 sources) Cellulitis and abscess of toe; Translations: [Cellulitis of unspecified toe] Onset: 06-20-2009 Resolved: 02-14-2011 02-14-2011 Episodic Spondylosis; intervertebral disc disorders; other back problems (7 sources) Acute back pain with sciatica; Translations: [Backache] Onset: 03-29-2007 Resolved: 02-14-2011 02-14-2011 Episodic Superficial injury; contusion (1 source) Contusion of right shoulder, initial encounter; Translations: [Contusion of right shoulder, initial encounter] Onset: 04-09-2022 Episodic Unclassified (20 sources) Chronic back pain ; Translations: [Dorsalgia, unspecified] Onset: 03-07-2012 04-18-2015 Episodic Unclassified (1 source) Right arm weakness Unclassified (1 source) BRONCHITTIS 05-26-2021 Comment on above: BRONCHITTIS Urinary tract infections (3 sources) Urinary tract infectious disease; Translations: [Urinary tract infection, site not specified] Onset: 04-04-2007 Resolved: 02-14-2011 02-14-2011 Episodic Viral infection (6 sources) Genital warts; Translations: [Anogenital (venereal) warts] Onset: 10-10-2013 10-10-2013 Episodic Results Test Name Value Interpretation Reference Range Facility [facility] 12-25-2023 [facility] Telephone ([facility]) DELMY BUCHANAN ([id number]) 1980 F T Date Time Provider Department 12/25/23 CAROLYN GAMINO [facility] During your visit today, we recorded the following information about you: Carolyn Gamino MD 12/25/2023 10:50 AM Signed Urine culture did not show a clear infection. She may finish antibiotic if helping and follow up with PCP, urology, or OUTLET MANAGER if symptoms persist. Jeffery Wolff MA 12/25/2023 12:59 PM Signed Patient notified of results, verbalized understanding of instructions given. Jeffery Wolff MA Allergies As of Date: 12/25/2023 Noted Allergy Reaction CONTRAST DYE 05/14/2006 8 - GI Upset METFORMIN 03/18/2011 6 - Diarrhea Comments: XR and plain MORPHINE 01/27/2018 14 - Other: See Comments Comments: Muscle contractions all over NORTRIPTYLINE 05/31/2011 14 - Other: See Comments Comments: sugar drops and heart issues SULFA (SULFONAMIDE ANTIBIOTICS) 02/04/2006 4 - Hives Date Reviewed: 12/24/2023 Reviewed by: Lillie Dominguez LPN - Fully Assessed Reason for Visit: Results [95] Cmt: Urine Cx mixed Prescriptions as of 12/25/2023 - cephALEXin (KEFLEX) 500 mg capsule Take 1 capsule by mouth two times a day for 7 days. - tirzepatide (MOUNJARO) 12.5 mg/0.5 mL pen injector Inject 12.5 mg subcutaneously one time a week. - omeprazole (PRILOSEC) 40 mg capsule Take 1 capsule by mouth once daily. - JARDIANCE 25 mg tablet Take 1 tablet by mouth once daily. - ezetimibe (ZETIA) 10 mg tablet Take 10 mg by mouth once daily. - icosapent ethyl 1 gram Take 2 capsules by mouth twice daily. - pravastatin (PRAVACHOL) 20 mg tablet Take 20 mg by mouth daily at bedtime. - CO Q-10 200 mg cap Take 1 capsule by mouth once daily. - meloxicam (MOBIC) 15 mg tablet Take 15 mg by mouth once daily. - clopidogrel (PLAVIX) 75 mg tablet clopidogrel Clopidogrel Bisulfate Active 75 MG DAILY December 10, 2019 10:38pm 12-10-2019 [facility] ([id number]) - pentoxifylline ER (TRENTAL) 400 mg CR tablet Take 1 tablet by mouth three times daily with meals. - cholecalciferol, Vitamin D3, (VITAMIN D3) 50,000 unit cap capsule Take 1 capsule by mouth once each week. - insulin glargine (LANTUS SOLOSTAR) 100 unit/mL (3 mL) inpn Inject 10 Units subcutaneously once daily. - gabapentin (NEURONTIN) 100 mg capsule Take 800 mg by mouth three times daily. 300MG TAB 5 TIMES PER DAY - ondansetron (ZOFRAN, HYDROCHLORIDE,) 4 mg tablet Take 1 tablet by mouth every 12 hours as needed for Nausea/Vomiting (for nausea.). - Topiramate (TOPAMAX) 50 mg tablet Take 50 mg by mouth once daily. - thyroid (ARMOUR THYROID) 30 mg tablet Take 30 mg by mouth once daily. - Blood Sugar Diagnostic, Drum (ACCU-CHEK COMPACT TEST) strp Test before and after every meal and at HS daily as directed, diabetes uncontrolled, multiple doses insulin per day, 250.02 - Insulin [place], Disposable, (PEN NEEDLE) 29 x 1/2 Ndle use four times daily with each dose of insulin ac and hs - lancets(ACCU-CHEK SOFTCLIX LANCETS) Test Blood sugars once daily Problem List As Of Date 12/25/2023 Noted Resolved Abdominal pain, other specified site [R10.9] 05/27/2005 02/14/2011 Calculus of kidney [N20.0] 05/27/2005 02/14/2011 Acute, but ill-defined, cerebrovascular disease*03/02/2006 02/14/2011 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/2006 AVM OF BRAIN [Q28.3] 03/15/2006 02/23/2012 OVERWEIGHT [E66.9] 06/26/2006 02/14/2011 Blood in stool [K92.1] 09/22/2006 02/14/2011 Conversion disorder [F44.9] 02/16/2007 02/14/2011 HEADACHE [R51] 02/16/2007 Other myelopathy [G95.89] 03/24/2007 02/23/2012 Backache, unspecified [M54.9] 03/29/2007 02/14/2011 Urinary tract infection, site not specified [N3*04/04/2007 02/14/2011 Depressive disorder, not elsewhere classified [*09/29/2007 02/14/2011 Pain in limb [M79.609] 11/08/2007 02/14/2011 DIABETES MELLITUS TYPE II-UNCOMPL [E11.9] 12/01/2007 Nonspecific abnormal results of liver function *12/01/2007 02/14/2011 Soft tissue anomaly NEC [Q79.8] 12/27/2007 02/14/2011 Benign rozina soft tissue [D21.9] 02/07/2008 02/14/2011 Elev transaminase/LDH [R74.01, R74.02] 02/14/2011 Cellulitis and abscess of toe, unspecified [L03*06/20/2009 02/14/2011 Onychia and paronychia of toe [L03.039] 07/04/2009 02/14/2011 Tendonitis [M77.9] 10/09/2009 02/14/2011 Unspecified Anemia [D64.9] 01/09/2010 Acute gastritis without mention of hemorrhage [*01/09/2010 02/23/2012 Other and unspecified hyperlipidemia [E78.5] 02/19/2010 Sciatica [M54.30] 09/22/2010 02/14/2011 Conversion disorder (or hysterical neurosis, co*06/11/2011 ALFONSO (obstructive sleep apnea) [G47.33] 08/12/2011 Chronic back pain [M54.9, G89.29] 03/07/2012 Chronic abdominal pain syndrome [G89.4] 04/27/2013 Genital warts [A63.0] 10/10/2013 Genital herpes [A60.00] 02/12/2014 Dysmenorrhea [N94.6] 09/06/2014 06/05/2016 Abnor (more content not included)... Normal [facility] Bacteria Ur Culton Bacteria identified Cx Nom (U) ORGANISM ID: [id number] 50,000-<100,000 CFU/ml Normal urogenital ajit Normal [facility] Comment on above: Performed By: #### 6 30-4 ####[facility] LABCLIA [id number] [address] [place] [facility] CNOVon 12-24-2023 CNOV Office Visit ([facility] ) DELMY BUCHANAN ([id number]) 1980 F CHT Date Time Provider Department 12/24/23 10:30 AM ELBA BONILLA [facility] During your visit today, we recorded the following information about you: Temperature Pulse Respiration Blood pressure 97.7 degrees 99/minute 20/minute 114/79 Weight 72 kg [email or web address] COORDINATOR 12/24/2023 11:51 AM Signed Subjective HPI HPI Delmy Buchanan is a 43 year old female who presents today for CC of urinary urgency, frequency, burning. This started 5 days ago. Has tried nothing for relief. Symptoms are worsened by nothing. Risk factors hx of uti, hospitalized this year for uti. .Patient presents with: Urinary Problem: Burning, frequency, fever x 5 days PAST MEDICAL HISTORY 01/09/2010: Acute gastritis without mention of hemorrhage 03/15/2006: AVM OF BRAIN Comment: Left frontal, small, developmental 05/27/2005: Calculus of kidney 04/27/2013: Chronic abdominal pain syndrome 02/16/2007: Conversion disorder 06/11/2011: Conversion disorder (or hysterical neurosis, conversion type) 03/07/2012: DDD (degenerative disc disease), lumbar 09/29/2007: DEPRESSIVE DISORDER NEC 09/29/2007: Depressive disorder, not elsewhere classified 12/01/2007: DIABETES MELLITUS TYPE II-UNCOMPL No date: Epilepsy complicating , childbirth, or the puerperium, unspecified as to episode of care or not applicable(649. 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 02/16/2007: Headache(784.0) 01/19/2020: Hypothyroidism 06/26/2006: IRRITABLE COLON No date: Migraine without aura 03/24/2007: MYELOPATHY NEC 08/12/2011: ALFONSO (obstructive sleep apnea) 01/27/2008: Polycystic ovaries 08/12/2011: RLS (restless legs syndrome) PAST SURGICAL HISTORY 12/01/2012: ABD EMBOLIZATION W/ANGIO Comment: Left Ovarian Vein embolization 2005: DELIVERY ONLY Comment: , low cervical 2002: CHOLECYSTECTOMY Comment: Cholecystectomy 04/24/13: EGD TRANSORAL BIOPSY SINGLE/MULTIPLE Comment: Gastritis 01/09/2010: ESOPHAGOGASTRODUODENOSCOPY TRANSORAL DIAGNOSTIC Comment: EGD 01/28/2018: ESOPHAGOGASTRODUODENOSCOPY TRANSORAL DIAGNOSTIC Comment: EGD 01/22/2020: ESOPHAGOGASTRODUODENOSCOPY TRANSORAL DIAGNOSTIC Comment: EGD 1999: PAST SURGICAL HISTORY OF Comment: fx right fibula 08/2003: PAST SURGICAL HISTORY OF Comment: stent in right kidney 01/2008: PAST SURGICAL HISTORY OF Comment: right hallux- scar tissue extensor tendon 08/26/10: PAST SURGICAL HISTORY OF Comment: laprascopic right salpingectomy [facility] Dr. Lyle 12/2014: PAST SURGICAL HISTORY OF; Left Comment: post tibial tendon repair 05/2015: PAST SURGICAL HISTORY OF; Right Comment: Repair Post tibial tendon 12/2016: PAST SURGICAL HISTORY OF; Right Comment: Repair Rt perineal tendon 09/2015: S PK LAVH [id number] Comment: lavhbs ALLERGIES Contrast Dye, Metformin, Morphine, Nortriptyline, and Sulfa (Sulfonamide Antibiotics) MEDICATIONS tirzepatide (MOUNJARO) 12.5 mg/0.5 mL pen injector Inject 12.5 mg subcutaneously one time a week. omeprazole (PRILOSEC) 40 mg capsule Take 1 capsule by mouth once daily. JARDIANCE 25 mg tablet Take 1 tablet by mouth once daily. ezetimibe (ZETIA) 10 mg tablet Take 10 mg by mouth once daily. icosapent ethyl 1 gram Take 2 capsules by mouth twice daily. pravastatin (PRAVACHOL) 20 mg tablet Take 20 mg by mouth daily at bedtime. CO Q-10 200 mg cap Take 1 capsule by mouth once daily. meloxicam (MOBIC) 15 mg tablet Take 15 mg by mouth once daily. clopidogrel (PLAVIX) 75 mg tablet clopidogrel Clopidogrel Bisulfate Active 75 MG DAILY December 10, 2019 10:38pm 12-10-2019 [facility] ([id number]) pentoxifylline ER (TRENTAL) 400 mg CR tablet Take 1 tablet by mouth three times daily with meals. cholecalciferol, Vitamin D3, (VITAMIN D3) 50,000 unit cap capsule Take 1 capsule by mouth once each week. insulin glargine (LANTUS SOLOSTAR) 100 unit/mL (3 mL) inpn Inject 10 Units subcutaneously once daily. gabapentin (NEURONTIN) 100 mg capsule Take 800 mg by mouth three times daily. 300MG TAB 5 TIMES PER DAY ondansetron (ZOFRAN, HYDROCHLORIDE,) 4 mg tablet Take 1 tablet by mouth every 12 hours as needed for Nausea/Vomiting (for nausea.). Topiramate (TOPAMAX) 50 mg tablet Take 50 mg by mouth once daily. thyroid (ARMOUR THYROID) 30 mg tablet Take 30 mg by mouth once daily. Blood Sugar Diagnostic, Drum (ACCU-CHEK COMPACT TEST) strp Test before and after every meal and at HS daily as directed, diabetes uncontrolled, multiple doses insulin per day, 250.02 Insulin [place], Disposable, (PEN NEEDLE) 29 x 1/2 Ndle use four times daily with each dose of insulin ac and hs lancets(ACCU-CHEK SOFTCLIX LANCETS) Test Blood sugars once daily cephALEXin (more content not included)... Normal [facility] UA DIP, URINE (POC)on 2023 BILIRUBIN UA (POCT) Negative Negative [facility] CLARITY UA (POCT) Clear [facility] COLOR UA (POCT) Yellow [facility] GLUCOSE UA (POCT) Negative Negative mg/dL [facility] Hemoglobin Ql (U) Negative Negative [facility] KETONE UA (POCT) Negative Negative mg/dL [facility] LEUKOCYTES UA (POCT) Negative Negative [facility] NITRITE UA (POCT) Negative Negative [facility] PH UA (POCT) 6.5 4.5 - 8.0 [facility] Protein Ql (U) Negative Negative mg/dL [facility] SPECIFIC GRAVITY UA (POCT) 1.010 1.005 - 1.030 [facility] UROBILINOGEN UA (POCT) 0.2 Normal E.U./dL [facility] Location:[address], [place], [address] [facility] POINT OF CARE [facility] CNOVon 10-14-2023 CNOV Office Visit ([facility] ) DELMY BUCHANAN ([id number]) 1980 F T Date Time Provider Department 10/14/23 2:15 PM PANFILO VIRAMONTES [facility] During your visit today, we recorded the following information about you: Temperature Pulse Respiration Blood pressure 99 degrees 111/minute 22/minute 134/90 Weight 71 kg Panfilo Viramontes PA 10/14/2023 2:25 PM Signed 43-year-old female presents for head injury and rib injury. Patient states that last night she tripped and fell to the ground. She states that she hit her head on the wall. She did not lose consciousness. She states that she is felt dizzy and foggy since the fall. She is on any blood thinners. States that she has a headache and she has to close her eyes because she feels dizzy when her eyes are open. She states she is unsure if she hit her ribs but is also having right-sided chest wall pain. Due to head injury with dizziness, I did recommend evaluation in the emergency room. Patient agreeable to this plan. She declines EMS, will have her friend drive her there now. She will go to [place] [facility]. Allergies As of Date: 10/14/2023 Noted Allergy Reaction CONTRAST DYE 05/14/2006 8 - GI Upset METFORMIN 03/18/2011 6 - Diarrhea Comments: XR and plain MORPHINE 01/27/2018 14 - Other: See Comments Comments: Muscle contractions all over NORTRIPTYLINE 05/31/2011 14 - Other: See Comments Comments: sugar drops and heart issues SULFA (SULFONAMIDE ANTIBIOTICS) 02/04/2006 4 - Hives Date Reviewed: 10/14/2023 Reviewed by: Lillie Dominguez LPN - Fully Assessed Reason for Visit: Back Pain [12] Cmt: R side mid into front, sharp stabbing pain, fatigue x last night Primary Visit Diagnosis:Injury of head, initial encounter [S09.90XA] Prescriptions as of 10/14/2023 - tirzepatide (MOUNJARO) 12.5 mg/0.5 mL pen injector Inject 12.5 mg subcutaneously one time a week. - omeprazole (PRILOSEC) 40 mg capsule Take 1 capsule by mouth once daily. - JARDIANCE 25 mg tablet Take 1 tablet by mouth once daily. - ezetimibe (ZETIA) 10 mg tablet Take 10 mg by mouth once daily. - icosapent ethyl 1 gram Take 2 capsules by mouth twice daily. - pravastatin (PRAVACHOL) 20 mg tablet Take 20 mg by mouth daily at bedtime. - CO Q-10 200 mg cap Take 1 capsule by mouth once daily. - meloxicam (MOBIC) 15 mg tablet Take 15 mg by mouth once daily. - clopidogrel (PLAVIX) 75 mg tablet clopidogrel Clopidogrel Bisulfate Active 75 MG DAILY December 10, 2019 10:38pm 12-10-2019 [facility] ([id number]) - pentoxifylline ER (TRENTAL) 400 mg CR tablet Take 1 tablet by mouth three times daily with meals. - cholecalciferol, Vitamin D3, (VITAMIN D3) 50,000 unit cap capsule Take 1 capsule by mouth once each week. - insulin glargine (LANTUS SOLOSTAR) 100 unit/mL (3 mL) inpn Inject 10 Units subcutaneously once daily. - gabapentin (NEURONTIN) 100 mg capsule Take 800 mg by mouth three times daily. 300MG TAB 5 TIMES PER DAY - ondansetron (ZOFRAN, HYDROCHLORIDE,) 4 mg tablet Take 1 tablet by mouth every 12 hours as needed for Nausea/Vomiting (for nausea.). - Topiramate (TOPAMAX) 50 mg tablet Take 50 mg by mouth once daily. - thyroid (ARMOUR THYROID) 30 mg tablet Take 30 mg by mouth once daily. - Blood Sugar Diagnostic, Drum (ACCU-CHEK COMPACT TEST) strp Test before and after every meal and at HS daily as directed, diabetes uncontrolled, multiple doses insulin per day, 250.02 - Insulin [place], Disposable, (PEN NEEDLE) 29 x 1/2 Ndle use four times daily with each dose of insulin ac and hs - lancets(ACCU-CHEK SOFTCLIX LANCETS) Test Blood sugars once daily Problem List As Of Date 10/14/2023 Noted Resolved Abdominal pain, other specified site [R10.9] 05/27/2005 02/14/2011 Calculus of kidney [N20.0] 05/27/2005 02/14/2011 Acute, but ill-defined, cerebrovascular disease*03/02/2006 02/14/2011 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/2006 AVM OF BRAIN [Q28.3] 03/15/2006 02/23/2012 OVERWEIGHT [E66.9] 06/26/2006 02/14/2011 Blood in stool [K92.1] 09/22/2006 02/14/2011 Conversion disorder [F44.9] 02/16/2007 02/14/2011 HEADACHE [R51] 02/16/2007 Other myelopathy [G95.89] 03/24/2007 02/23/2012 Backache, unspecified [M54.9] 03/29/2007 02/14/2011 Urinary tract infection, site not specified [N3*04/04/2007 02/14/2011 Depressive disorder, not elsewhere classified [*09/29/2007 02/14/2011 Pain in limb [M79.609] 11/08/2007 02/14/2011 DIABETES MELLITUS TYPE II-UNCOMPL [E11.9] 12/01/2007 Nonspecific abnormal results of liver function *12/01/2007 02/14/2011 Soft tissue anomaly NEC [Q79.8] 12/27/2007 02/14/2011 Benign rozina soft tissue [D21.9] 02/07/2008 02/14/2011 Elev transaminase/LDH [R74.01, R74.02] 02/14/2011 Cellulitis and abscess of toe, unspecified [L03*06/20/2009 02/14/2011 Onychia and paronychia of toe [L03.039] 07/04/2009 02/14/2011 Tendonitis [M77.9] 0 (more content not included)... Normal [facility] CNOVon 07-15-2023 CNOV Office Visit ([facility] ) DELMY BUCHANAN ([id number]) 1980 F T Date Time Provider Department 07/15/23 2:45 PM CAROL[facility] GAMINO [facility] During your visit today, we recorded the following information about you: Temperature Pulse Respiration Blood pressure 103 degrees 127/minute 22/minute 90/63 Weight 75.8 kg Carolyn Gamino MD 07/15/2023 3:17 PM Signed Patient presents with: Fever: Urinary issues, headache, burning, frequency, flank pain x 1 day HPI: Symptoms since last night. Dysuria: Yes Frequency: Yes Fever or chills: Yes, high fever and feeling weak. Back pain: bilateral flank Abdominal pain: only when urinating Prior UTI: Yes Personal history of kidney stones: Yes Denies sore throat, nasal congestion, cough. PAST MEDICAL HISTORY Diagnosis Date Acute gastritis without mention of hemorrhage 01/09/2010 AVM OF BRAIN 03/15/2006 Left frontal, small, developmental Calculus of kidney 05/27/2005 Chronic abdominal pain syndrome 04/27/2013 Conversion disorder 02/16/2007 Conversion disorder (or hysterical neurosis, conversion type) 06/11/2011 DDD (degenerative disc disease), lumbar 03/07/2012 DEPRESSIVE DISORDER NEC 09/29/2007 Depressive disorder, not elsewhere classified 09/29/2007 DIABETES MELLITUS TYPE II-UNCOMPL 12/01/2007 Epilepsy complicating , childbirth, or the puerperium, unspecified as to episode of care or not applicable(649.40) Fatty liver 01/03/2009 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 omeprazole (PRILOSEC) 40 mg capsule Take 1 capsule by mouth once daily. JARDIANCE 25 mg tablet Take 1 tablet by mouth once daily. ezetimibe (ZETIA) 10 mg tablet Take 10 mg by mouth once daily. icosapent ethyl 1 gram Take 2 capsules by mouth twice daily. pravastatin (PRAVACHOL) 20 mg tablet Take 20 mg by mouth daily at bedtime. CO Q-10 200 mg cap Take 1 capsule by mouth once daily. meloxicam (MOBIC) 15 mg tablet Take 15 mg by mouth once daily. clopidogrel (PLAVIX) 75 mg tablet clopidogrel Clopidogrel Bisulfate Active 75 MG DAILY December 10, 2019 10:38pm 12-10-2019 [facility] ([id number]) pentoxifylline ER (TRENTAL) 400 mg CR tablet Take 1 tablet by mouth three times daily with meals. cholecalciferol, Vitamin D3, (VITAMIN D3) 50,000 unit cap capsule Take 1 capsule by mouth once each week. insulin glargine (LANTUS SOLOSTAR) 100 unit/mL (3 mL) inpn Inject 10 Units subcutaneously once daily. gabapentin (NEURONTIN) 100 mg capsule Take 800 mg by mouth three times daily. 300MG TAB 5 TIMES PER DAY ondansetron (ZOFRAN, HYDROCHLORIDE,) 4 mg tablet Take 1 tablet by mouth every 12 hours as needed for Nausea/Vomiting (for nausea.). Topiramate (TOPAMAX) 50 mg tablet Take 50 mg by mouth once daily. thyroid (ARMOUR THYROID) 30 mg tablet Take 30 mg by mouth once daily. Blood Sugar Diagnostic, Drum (ACCU-CHEK COMPACT TEST) strp Test before and after every meal and at HS daily as directed, diabetes uncontrolled, multiple doses insulin per day, 250.02 Insulin [place], Disposable, (PEN NEEDLE) 29 x 1/2 Ndle use four times daily with each dose of insulin ac and hs lancets(ACCU-CHEK SOFTCLIX LANCETS) Test Blood sugars once daily No current facility-administered medications for this visit. ALLERGIES: ALLERGIES Allergen Reactions Contrast Dye GI Upset Metformin Diarrhea XR and plain Morphine Other: See Comments Muscle contractions all over Nortriptyline Other: See Comments sugar drops and heart issues Sulfa (Sulfonamide * Hives VITALS: BP 90/63 Pulse (!) 127 Temp (!) 39.4 ?C (103 ?F) Resp 22 Wt 75.8 kg (167 lb 1.7 oz) LMP 09/07/2015 SpO2 99% BMI 26.97 kg/m? Last 4 Encounter BP Readings: Date: BP: 07/15/2023 90/63 05/27/2023 122/72 01/13/2023 124/85 05/23/2020 102/84 PHYSICAL EXAM: GEN: ill appearing HEENT: EOMI, conjunctiva clear, HEART: fast rate, regular rhythm, LUNGS: clear to auscultation, no wheezes or crackles, no increased WOB ABDOMEN: Soft, nondistended, no masses, no suprapubic tenderness BACK: bilateral CVA tenderness ASSESSMENT/PLAN: 1. Burning with urination - ICD9: 788.1, ICD10: R30.0 (primary diagnosis) 2. Hypotension, unspecified hypotension type - ICD9: 458.9, ICD10: I95.9 3. Fever, unspecified fever cause - ICD9: 780.60, ICD10: R50.9 - UA DIP, URINE (POC) -positive for multiple - unreliable due to Azo discoloratio (more content not included)... Normal [facility] UA DIP, URINE (POC)on 2023 BILIRUBIN UA (POCT) Small Abnormal Negative [facility] CLARITY UA (POCT) Clear [facility] COLOR UA (POCT) Lexa [facility] GLUCOSE UA (POCT) 100 mg/dL Abnormal Negative mg/dL [facility] Hemoglobin Ql (U) Moderate Abnormal Negative [facility] KETONE UA (POCT) Negative Negative mg/dL [facility] LEUKOCYTES UA (POCT) Large Abnormal Negative [facility] NITRITE UA (POCT) Positive Abnormal Negative [facility] PH UA (POCT) 5.5 4.5 - 8.0 [facility] Protein Ql (U) 100 mg/dL Abnormal Negative mg/dL [facility] SPECIFIC GRAVITY UA (POCT) 1.010 1.005 - 1.030 [facility] UROBILINOGEN UA (POCT) 2.0 E.U./dL Abnormal Normal E.U./dL [facility] CNOVon 05-27-2023 CNOV Office Visit ([facility] ) DELMY BUCHANAN ([id number]) 1980 F T Date Time Provider Department 05/27/23 5:30 PM ELBA BONILLA [facility] During your visit today, we recorded the following information about you: Temperature Pulse Respiration Blood pressure 97.9 degrees 88/minute 16/minute 122/72 Weight 76 kg Elba Bonilla APRN.ACCOUNTING COORDINATOR 05/27/2023 7:01 PM Signed Subjective HPI HPI Delmy Buchanan is a 42 year old female who presents today for CC of cough, congestion, chest heaviness, passing out. This started 4 days ago. Has tried otc medication for relief. Symptoms are worsened by nothing. Was at ER. Did not want to wait to be seen. .Patient presents with: Cough: Sinus pressure and drainage x4 days PAST MEDICAL HISTORY Diagnosis Date Acute gastritis without mention of hemorrhage 01/09/2010 AVM OF BRAIN 03/15/2006 Left frontal, small, developmental Calculus of kidney 05/27/2005 Chronic abdominal pain syndrome 04/27/2013 Conversion disorder 02/16/2007 Conversion disorder (or hysterical neurosis, conversion type) 06/11/2011 DDD (degenerative disc disease), lumbar 03/07/2012 DEPRESSIVE DISORDER NEC 09/29/2007 Depressive disorder, not elsewhere classified 09/29/2007 DIABETES MELLITUS TYPE II-UNCOMPL 12/01/2007 Epilepsy complicating , childbirth, or the puerperium, unspecified as to episode of care or not applicable(649.40) Fatty liver 01/03/2009 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 03/15/2006 Headache(784.0) 02/16/2007 Hypothyroidism 01/19/2020 IRRITABLE COLON 06/26/2006 Migraine without aura MYELOPATHY NEC 03/24/2007 ALFONSO (obstructive sleep apnea) 08/12/2011 Polycystic ovaries 01/27/2008 RLS (restless legs syndrome) 08/12/2011 PAST SURGICAL HISTORY Procedure Laterality Date ABD EMBOLIZATION W/ANGIO 12/01/2012 Left Ovarian Vein embolization DELIVERY ONLY 2006 , low cervical CHOLECYSTECTOMY 2002 Cholecystectomy EGD TRANSORAL BIOPSY SINGLE/MULTIPLE 04/24/13 Gastritis ESOPHAGOGASTRODUODENOSCOPY TRANSORAL DIAGNOSTIC 01/09/2010 EGD ESOPHAGOGASTRODUODENOSCOPY TRANSORAL DIAGNOSTIC 01/28/2018 EGD ESOPHAGOGASTRODUODENOSCOPY TRANSORAL DIAGNOSTIC 01/22/2020 EGD PAST SURGICAL HISTORY OF 2000 fx right fibula PAST SURGICAL HISTORY OF 08/2003 stent in right kidney PAST SURGICAL HISTORY OF 01/2008 right hallux- scar tissue extensor tendon PAST SURGICAL HISTORY OF 08/26/[address] [facility] Dr. Lyle PAST SURGICAL HISTORY OF Left 12/2014 post tibial tendon repair PAST SURGICAL HISTORY OF Right 05/2015 Repair Post tibial tendon PAST SURGICAL HISTORY OF Right 12/2016 Repair Rt perineal tendon S PK LAV [id number] 09/2015 lavhbs ALLERGIES Contrast Dye, Metformin, Morphine, Nortriptyline, and Sulfa (Sulfonamide Antibiotics) MEDICATIONS tirzepatide (MOUNJARO) 12.5 mg/0.5 mL pen injector Inject 12.5 mg subcutaneously one time a week. omeprazole (PRILOSEC) 40 mg capsule Take 1 capsule by mouth once daily. JARDIANCE 25 mg tablet Take 1 tablet by mouth once daily. ezetimibe (ZETIA) 10 mg tablet Take 10 mg by mouth once daily. icosapent ethyl 1 gram Take 2 capsules by mouth twice daily. pravastatin (PRAVACHOL) 20 mg tablet Take 20 mg by mouth daily at bedtime. CO Q-10 200 mg cap Take 1 capsule by mouth once daily. meloxicam (MOBIC) 15 mg tablet Take 15 mg by mouth once daily. clopidogrel (PLAVIX) 75 mg tablet clopidogrel Clopidogrel Bisulfate Active 75 MG DAILY December 10, 2019 10:38pm 12-10-2019 [facility] ([id number]) pentoxifylline ER (TRENTAL) 400 mg CR tablet Take 1 tablet by mouth three times daily with meals. cholecalciferol, Vitamin D3, (VITAMIN D3) 50,000 unit cap capsule Take 1 capsule by mouth once each week. insulin glargine (LANTUS SOLOSTAR) 100 unit/mL (3 mL) inpn Inject 10 Units subcutaneously once daily. gabapentin (NEURONTIN) 100 mg capsule Take 800 mg by mouth three times daily. 300MG TAB 5 TIMES PER DAY ondansetron (ZOFRAN, HYDROCHLORIDE,) 4 mg tablet Take 1 tablet by mouth every 12 hours as needed for Nausea/Vomiting (for nausea.). Topiramate (TOPAMAX) 50 mg tablet Take 50 mg by mouth once daily. thyroid (ARMOUR THYROID) 30 mg tablet Take 30 mg by mouth once daily. Blood Sugar Diagnostic, Drum (ACCU-CHEK COMPACT TEST) strp Test before and after every meal and at HS daily as directed, diabetes uncontrolled, multiple doses insulin per day, 250.02 Insulin [place], Disposable, (PEN NEEDLE) 29 x 1/2 Ndle use four times daily with each dose of insulin ac and hs lancets(ACCU-CHEK SOFTCLIX LANCETS) Test Blood sugars once daily FAMILY HISTORY Problem Relation Age of Onset Arthritis Mother Heart Father angina Hypertension Father Diabetes Maternal Grandmother TYPE II Colon Cancer Maternal Aunt (more content not included)... Normal [facility] XR ESOPHAGRAMon 01-15-2023 XR ESOPHAGRAM * * *Final Report* * * DATE OF EXAM: Jan 15 2023 10:29AM HGX [id number] - XR ESOPHAGRAM / PROCEDURE REASON: Esophageal dysphagia * * * * Physician Interpretation * * * * CONTRAST ESOPHAGRAM HISTORY: Dysphagia. TECHNIQUE: A biphasic examination of the esophagus was performed utilizing effervescent granules (E-Z-Gas II - 4 grams), high density barium, and low density barium. Contrast: ORAL: 100 ml of EZHD ORAL: 200 ml of EZPAQUE ORAL: 1 EZ DISK Fluoroscopy radiation summary: Fluoroscopy time: 3:12 (min:sec). Air kerma: 36.7 mGy. RESULT: Caliber: Normal. Stricture, Ring, or Web: None. Motility: Normal. Hiatal Hernia: Absent. Gastroesophageal Reflux: None, despite provocative maneuvers including cough, Valsalva, straight leg raise, and water siphon. Gastric Cardia: Normal. There is particulate material in the stomach although the patient had been nothing by mouth since midnight. Barium Tablet: Passed easily without reproducing symptoms. Staff Physician: Carlos Avalos M.D. was present for the critical portions of the procedure and was immediately available throughout the remainder of the procedure. IMPRESSION: NORMAL ESOPHAGRAM. PARTICULATE MATERIAL IN THE STOMACH. PATIENT WAS NOTHING BY MOUTH SINCE MIDNIGHT, THIS RAISES POSSIBILITY OF GASTROPARESIS. Manager Customer: EDUARDO Transcribe Date/Time: Jan 15 2023 11:17A Dictated by : DEE FANG MD This examination was interpreted and the report reviewed and electronically signed by: CARLOS AVALOS MD on Jan 15 2023 11:24AM EST [id number] Normal [facility] CNCOon 12-28-2022 CNCO Letter Text Normal [facility] EMERGENCY REPORTon 2 EMERGENCY REPORT [facility] EMERGENCY ROOM REPORT NAME ACCOUNT SEX AGE ADMIT DISCHARGE PT MED. RECORD# NUMBER DATE DATE TYPE RANJEET [id number] Viktoria 41 04/08/22 04/08/22 3 DELMY Martinez [id number] ROOM: ER DATE OF : 1980 DICTATING PHYSICIAN: Nicole Burgos TIME SEEN: 2205 hours. HISTORY OF PRESENT ILLNESS: This is a 41-year-old white female who is complaining of right shoulder pain after she tripped and fell. She was walking her dog, and he pulled her forward. She struck her right clavicle on the ground. This occurred several hours ago, but it did occur tonight around 6:30 p.m. She presently rates her shoulder pain as a 5 on a severity scale of 1-10. She describes it as sharp in nature and worse with movement. She denies any associated numbness or tingling. She denies any motor weakness. She denies any neck pain. She denies any headache or loss of consciousness. She denies any nausea or vomiting. PCP is Dr. Felix in [place]. 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 She also has a history of gastroparesis. She is a diabetic, insulin-dependent. PAST SURGICAL HISTORY: Cholecystectomy, complete hysterectomy, previous orthopedic surgery on her right foot and left foot, and . SOCIAL HISTORY: She is not a smoker. She admits to occasional alcohol use. She denies any illicit drug use. She lives alone. REVIEW OF SYSTEMS: She denies any chest pain, palpitations, shortness of breath, cough, sputum, wheezing, abdominal pain, nausea, vomiting, diarrhea, constipation, melena, hematochezia, headache, numbness, unsteady gait, weakness, or neck or back pain. She does complain of right shoulder and right clavicle pain. Further review of systems is negative. PHYSICAL EXAMINATION: VITAL SIGNS: Temperature is 97.6, pulse 76, respirations 18, blood pressure 169/98, pulse oximetry 97% on room air, and weight 210 pounds. GENERAL: The patient is alert and oriented x3. She presently appears in no acute distress. She is pleasant and cooperative. She makes eye contact. She speaks in full sentences. HEENT: Head appears atraumatic. Pupils are equal and reactive to light. Red reflexes are intact bilaterally. Extraocular muscles are intact. No conjunctival injection. NOSE: Nose exhibits no rhinorrhea or epistaxis. MOUTH: Mucous membranes are moist. Teeth are intact. No mandibular tenderness. NECK: Neck is supple. Trachea is midline. No JVD or lymphadenopathy. No posterior cervical Page 1 of 2 [facility] Emergency Room Report DELMY Martinez RANJEET DELMY M : 1980 tenderness. No nuchal rigidity. LUNGS: Lungs are clear to auscultation bilaterally. No adventitious sounds are noted. No accessory muscle use is noted. No anterior chest wall tenderness. CV: Heart rate and rhythm are regular without murmur. ABDOMEN: Abdomen is soft and nontender with normoactive bowel sounds x4 quadrants. No guarding or rigidity. No rebound. No palpable abdominal masses. No hepatosplenomegaly. BACK: Back exhibits no midline or paraspinal region tenderness. No increased paraspinal muscle rigidity. Negative Thien's sign. EXTREMITIES: The patient does have some palpable tenderness over the right shoulder. Most of it is in the medial aspect of the right clavicle. I do not see any swelling or other signs of injury there. There is no ecchymosis. No bony deformity. She is just tender in that right costosternal angle. There is no palpable crepitus. No subcutaneous air. She does move her right arm, although there is some decreased range of motion due to pain with movement, but I do not note any crepitus. She does have a good intact right radial pulse. She has good sensation to light touch to all digits of the right hand. Capillary refill is less than 2 seconds. No skin abrasions or lacerations. DIAGNOSTIC DATA: We did obtain x-rays of the right clavicle and shoulder, and I see no evidence of any fracture. No dislocation. EMERGENCY DEPARTMENT COURSE AND TREATMENT: I placed the patient in a right arm sling and advised her to rest with no heavy lifting or other exertional activities. She did ask if she could have something to take for pain when she gets home because she is driving, but she wanted to have something to help her sleep. I did send her home with one [place], and she can take that when she gets home. Do not take it before she gets home. She can follow up with Dr. Felix, her primary care physician, in the next 3 to 5 days for reevaluation. I did advise her that our radiologist will review the x-rays tomorrow, and if there is any discrepancy we will contact her. The patient was discharged in a clinically stable condition with a prescription for ibuprofen 800 mg one every 8 hours as needed for pain, dispense #20 with no refill. DIAGNOSIS: Right clavicle contusion. Dictated By: Nicole Burgos DO (more content not included)... Normal [facility] CLAVICLE RTon 04-09-2022 CLAVICLE RT [place] [address] Patient: DELMY BUCHANAN Phone#: : 1980 Age: 41 Gender: F Pt. Type: ER Account: [id number] Location: 052 Ordering: NICOLE BURGOS Exam Date: 04/08/2022/22:20 Family Phys: Charge Code: [id number] Physician: [place] Order #: [id number] Dose#: PROCEDURE: X-RAY CLAVICLE RT COMPARISON: None. INDICATIONS: Trauma. FINDINGS: BONES: Normal. No significant arthropathy or acute abnormality. SOFT TISSUES: Negative. No visible soft tissue swelling. EFFUSION: None visible. OTHER: Electronic artifact is present overlying the right upper thorax. CONCLUSION: No acute disease. Dictated by: Melissa Malone MD on 04/09/2022 at 8:53 Approved by: Melissa Malone MD on 04/09/2022 at 8:55 Normal [facility] EMERGENCY REPORTon 2 EMERGENCY REPORT [facility] EMERGENCY ROOM REPORT NAME ACCOUNT SEX AGE ADMIT DISCHARGE PT MED. RECORD# NUMBER DATE DATE TYPE RANJEET [id number] F 41 03/06/22 03/06/22 3 DELMY Martinez [id number] ROOM: ER DATE OF : 1980 DICTATING PHYSICIAN: Nicole Burgos CHIEF COMPLAINT: 7 p.m. HISTORY OF PRESENT ILLNESS: This is a 41-year-old white female complaining of some left-sided chest heaviness. When she takes a deep breath, the pain actually feels more sharp in nature and is worse with deep inspiration. She states that the chest pain started about 8 hours ago before she came here. She has had no shortness of breath today, but she has noticed off and on that she has been short of breath if she climbs stairs. She denies any nausea. She was a little bit lightheaded with standing. She states that earlier the chest pain had gone down her left arm. PAST MEDICAL HISTORY: Epilepsy, fibromyalgia, AV malformation in the left side of the brain, migraine headaches, gastroparesis, and insulin-dependent diabetes. PAST SURGICAL HISTORY: Cholecystectomy, hysterectomy, orthopedic surgery on the right foot and left foot, and . ALLERGIES: She is allergic to sulfa, morphine, nortriptyline, metformin, and contrast media. SOCIAL HISTORY: The patient is not a smoker, past or present. She denies any alcohol or drug use. She lives alone. REVIEW OF SYSTEMS: She does admit to chest pain and shortness of breath. She denies any cough, sputum, wheezing, abdominal pain, nausea, vomiting, diarrhea, constipation, melena, hematochezia, headache, numbness, unsteady gait, weakness, neck or back pain, joint pain, skin rash or swelling, hives, hay fever, or swollen glands. Further review of systems is negative. PHYSICAL EXAMINATION: VITAL SIGNS: Temperature is 98.2, pulse 73, respirations 16, blood pressure 124/93, pulse oximetry 95% on room air, and weight 210 pounds. GENERAL: The patient is alert and oriented x3. She presently appears in no acute distress. She is pleasant and cooperative. HEENT: Head appears atraumatic. Pupils are equal and reactive to light. Red reflexes are intact bilaterally. Extraocular muscles are intact. No conjunctival injection. NOSE: Nose exhibits no rhinorrhea or epistaxis. MOUTH: Mucous membranes are moist. No pharyngeal erythema. Uvula is midline and elevates. NECK: Neck is supple. Trachea is midline. No JVD or lymphadenopathy. No Page 1 of 2 [facility], Emergency Room Report DELMY EDWARDS : 1980 posterior cervical tenderness. No nuchal rigidity. LUNGS: Lungs are clear to auscultation bilaterally. No adventitious sounds are noted. No accessory muscle use is noted. CV: Heart rate and rhythm are regular without murmur. ABDOMEN: Abdomen is soft and nontender with normoactive bowel sounds x4 quadrants. No guarding or rigidity. No rebound. No palpable abdominal masses. No hepatosplenomegaly. BACK: Back exhibits no midline or paraspinal region tenderness. No increased paraspinal muscle rigidity. Negative Thien's sign. EXTREMITIES: No edema or cyanosis. Peripheral pulses are intact. No motor or sensory deficits are noted. Hand network firewall engineer are strong and symmetric. SKIN: Skin is warm and dry. No diaphoresis or rash. NEUROLOGIC: Neurologic examination shows the patient to be alert and oriented x4. No motor or sensory deficits are noted. Normal speech. No conversational dyspnea. DIAGNOSTIC DATA: Chest x-ray showed no acute infiltrate or failure. EKG was done at 1808 hours when she initially was seen here by Dr. Rodgers. That showed a normal sinus rhythm at a rate of [address]-segment changes were noted. Gilbert is 0 degrees. Bloodwork here showed a white count of 6.7, hemoglobin 13.8, hematocrit 41.6, and platelet count 220,000. D-dimer was negative at 166. Sodium was 138, potassium 3.7, chloride 104, CO2 of 28.6, BUN 19, and creatinine 0.84. Glucose was 249. AST was 11, ALT 39, alkaline phosphatase 114, and total bilirubin 0.2. Anion gap is normal at 9. Troponin was 5.4. We did repeat the troponin at 2114 hours. It was normal at 6.3. EMERGENCY DEPARTMENT COURSE AND TREATMENT: I did give the patient some Toradol here IV for her chest pain. I did not feel at this point that this indicates emergency admission for chest pain evaluation. This patient did have a stress test here back in 2016 which was normal. I did ask her to call Dr. Jhonny Valladares's office at [address] [place] [address], [place], [place]; that is who she follows with as a PCP. I did feel that she ought to follow up with him in the office this week to get set up for an outpatient stress test. I do not have a stress test available here this weekend. The patient was really not interested in staying here until Wednesday to get a stress test done. She is pain-free now, and with 2 negative troponins and a normal stress test from 2016 I felt at this point we could get it done as an outpatient. T (more content not included)... Normal [facility] CBC + DIFFon 03-06-2022 Baso # 0.10 x10EE3/UL Normal 0.00 - 0.10 [facility] Comment on above: Performed By: #### 2 [id number] #### [facility],[address] [place], [place] [id number] Basophils/100 WBC (Bld) 0.9 % Normal 0.0 - 2.0 [facility] Comment on above: Performed By: #### 2 [id number] #### [facility],[address] [place] [address] CBC + DIFF Normal [facility] Comment on above: Result Comment: CBC- COMPLETE BLOOD COUNT Performed By: #### 2 [id number] #### [facility],[address] [place] [address] EO # 0.40 x10EE3/UL Normal 0.00 - 0.50 [facility] Comment on above: Performed By: #### 2 [id number] #### [facility],[address] [place] [address] Eosinophils/100 WBC (Bld) 6.3 % Normal 0.0 - 7.0 [facility] Comment on above: Performed By: #### 2 59295 #### [facility],[address] [address] Erythrocyte distribution width (RBC) [Ratio] 15.4 % Normal 12.0 - 15.6 [facility] Comment on above: Performed By: #### 2 13369 #### [facility],[address] [place] [address] Hematocrit (Bld) [Volume fraction] 41.6 % Normal 34.0 - 46.0 [facility] Comment on above: Performed By: #### 2 92517 #### [facility],[address] [place], [place] [id number] Hemoglobin (Bld) [Mass/Vol] 13.8 g/dL Normal 12.0 - 16.0 [facility] Comment on above: Performed By: #### 2 08323 #### [facility],[address] [place] [address] Lymph # 2.40 x10EE3/UL Normal 0.80 - 2.80 [facility] Comment on above: Performed By: #### 2 48613 #### [facility],[address] [place], [place] [id number] Lymphocytes/100 WBC (Bld) 35.6 % Normal 20.0 - 45.0 [facility] Comment on above: Performed By: #### 2 71157 #### [facility],[address] [place] [address] MANUAL DIFF N/A Normal [facility] Comment on above: Performed By: #### 2 26604 #### [facility],[address] [place], [place] [id number] MCH (RBC) [Entitic mass] 27 pg Normal 27 - 33 [facility] Comment on above: Performed By: #### 2 63423 #### [facility],[address] [place], [place] [id number] MCHC 33 X10 3 Normal 32 - 36 [facility] Comment on above: Performed By: #### 2 92653 #### [facility],[address] [place] [address] MCV (RBC) [Entitic vol] 82 fL Normal 80 - 99 [facility] Comment on above: Performed By: #### 2 00620 #### [facility],[address] [place] [address] Wilkinson # 0.50 x10EE3/UL Normal 0.20 - 1.00 [facility] Comment on above: Performed By: #### 2 95401 #### [facility],[address] [place] [address] MONOS % 6.9 % Normal 0.0 - 10.0 [facility] Comment on above: Performed By: #### 2 75010 #### [facility],[address] [place] [address] Morphology [place] (Bld) [Interp] N/A Normal [facility] Comment on above: Result Comment: {CD] Performed By: #### 2 42240 #### [facility],[address] [place] [address] Neut # 3.40 x10EE3/UL Normal 1.50 - 7.10 [facility] Comment on above: Performed By: #### 2 11858 #### [facility],[address] [place] [address] Neutrophils/100 WBC (Bld) 50.3 % Normal 46.0 - 76.0 [facility] Comment on above: Performed By: #### 2 65715 #### [facility],[address] [place] [address] PLATELET 220 x10EE3/UL Normal 150 - 450 [facility] Comment on above: Performed By: #### 2 11234 #### [facility],[address] [place] [address] Platelet mean volume (Bld) [Entitic vol] 7.9 fL Normal 6.6 - 10.5 [facility] Comment on above: Result Comment: AUTO MATED DIFFERENTIAL Performed By: #### 2 81681 #### [facility],[address] [place] [address] RBC 5.08 x 10EE6/UL Normal 4.10 - 5.30 [facility] Comment on above: Performed By: #### 2 90903 #### [facility],[address] [place] [address] WBC 6.7 x 10EE3/UL Normal 4.5 - 10.8 [facility] Comment on above: Performed By: #### 2 47066 #### [facility],[address] [place] [address] CHEST 1 VIEWon 03-06-2022 CHEST 1 VIEW [place] [address] Patient: DELMY BUCHANAN Phone#: : 1980 Age: 41 Gender: F Pt. Type: ER Account: [id number] Location: [facility] Ordering: SINGH RODGERS Exam Date: 03/06/2022/18:16 Family Phys: Charge Code: [id number] Physician: [place] Order #: [id number] Dose#: PROCEDURE: X-RAY CHEST 1 VIEW COMPARISON: [facility], XR, CHEST 2 VIEWS, 01/15/2020, 16:39. INDICATIONS: Chest pain. FINDINGS: LUNGS: Normal. No significant pulmonary parenchymal abnormalities. VASCULATURE: Normal. Unremarkable pulmonary vasculature. CARDIAC: Normal. No cardiac silhouette abnormality or cardiomegaly. MEDIASTINUM: Normal. No visible mass or adenopathy. PLEURA: Normal. No effusion or pleural thickening. BONES: Normal. No fracture or visible bony lesion. OTHER: Electrode is present superimposed on the anterior left thorax. CONCLUSION: No acute disease. No significant change has occurred. Dictated by: Melissa Malone MD on 03/07/2022 at 14:28 Approved by: Melissa Malone MD on 03/07/2022 at 14:29 Normal [facility] CMP with eGFRon 03-06-2022 AGE 41 years Normal [facility] Comment on above: Performed By: #### 2 45046 #### [facility],[address] [place] [address] 73243 Albumin [Mass/Vol] 3.5 g/dL Normal 3.4 - 5.0 [facility] Comment on above: Performed By: #### 2 95573 #### [facility],[address] [place] [address] 48364 Albumin/Globulin [Mass ratio] 1.1 {ratio} Normal 0.9 - 1.6 [facility] Comment on above: Performed By: #### 2 46993 #### [facility],[address] [address] ALK PHOS 114 U/L Normal 46 - 116 [facility] Comment on above: Performed By: #### 2 75618 #### [facility],[address] [place] [address] ALT [Catalytic activity/Vol] 39 U/L Normal 14 - 59 [facility] Comment on above: Performed By: #### 2 56627 #### [facility],[address] [address] Anion gap [Moles/Vol] 9 mmol/L Low 10 - 20 [facility] Comment on above: Performed By: #### 2 14542 #### [facility],[address] [place], [place] [id number] AST [Catalytic activity/Vol] 11 U/L Low 13 - 39 [facility] Comment on above: Performed By: #### 2 32794 #### [facility],[address] [place] [address] 61171 B/C RATIO 23 ratio Normal 0 - 30 [facility] Comment on above: Performed By: #### 2 37644 #### [facility],[address] [place] [address] 16051 Bilirubin [Mass/Vol] 0.2 mg/dL Normal 0.2 - 1.0 [facility] Comment on above: Performed By: #### 2 46206 #### [facility],[address] [place] [address] 16998 Calcium [Mass/Vol] 8.6 mg/dL Normal 8.5 - 10.1 [facility] Comment on above: Performed By: #### 2 94255 #### [facility],[address] [place], [place] [address] Chloride [Moles/Vol] 104 mmol/L Normal 98 - 107 [facility] Comment on above: Performed By: #### 2 48985 #### [facility],[address] [place], [place] [id number] CMP with eGFR Normal [facility] Comment on above: Result Comment: COMP REHENSIVE METABOLIC PANEL Performed By: #### 2 02338 #### [place] [address] CO2 [Moles/Vol] 28.6 mmol/L Normal 21.0 - 32.0 [facility] Comment on above: Performed By: #### 2 89872 #### [facility],[address] [address] Creatinine [Mass/Vol] 0.84 mg/dL Normal 0.55 - 1.02 [facility] Comment on above: Performed By: #### 2 20927 #### [place] [address] GFR/1.73 sq M.predicted among non-blacks MDRD (S/P/Bld) [Vol rate/Area] mL/min/{1.73_m2} Normal 60 - 999 [facility] Comment on above: Performed By: #### 2 72958 #### [place] [address] Result Comment: ACCO RDING TO THE NATIONAL KIDNEY DISEASE EDUCATION PROGRAM(NKDE), A NORMAL eGFR IS A VALUE GREATER THAN OR EQUAL TO 60 ML/MIN/1.73 SQ METERS. CHRONIC KIDNEY DISEASE: <60mL/MIN/1.73 SQ METERS KIDNEY FAILURE: <15mL/MIN/1.73 SQ METERS THIS TEST SHOULD ONLY BE USED FOR PATIENTS 18 YEARS OF AGE AND OLDER. Globulin (S) [Mass/Vol] 3.3 g/dL Normal 1.5 - 3.8 [facility] Comment on above: Performed By: #### 2 32202 #### [facility],[address] [place] [address] 80561 Glucose [Mass/Vol] 249 mg/dL High 74 - 106 [facility] Comment on above: Performed By: #### 2 32303 #### [facility],[address] [place] [address] 70212 Potassium [Moles/Vol] 3.7 mmol/L Normal 3.5 - 5.1 [facility] Comment on above: Performed By: #### 2 43281 #### [facility],[address] [place] [address] 86370 Protein [Mass/Vol] 6.8 g/dL Normal 6.4 - 8.2 [facility] Comment on above: Performed By: #### 2 39061 #### [facility],[address] [place] [address] 44521 Sodium [Moles/Vol] 138 mmol/L Normal 136 - 145 [facility] Comment on above: Performed By: #### 2 93308 #### [facility],[address] [place] [address] 72030 Urea nitrogen [Mass/Vol] 19 mg/dL High 7 - 18 [facility] Comment on above: Performed By: #### 2 77366 #### [facility],[address] [place] [address] 64996 D-DIMER, QUANTITATIVEon 02-08 D-DIMER QUANT 166 ng/ml Normal 0 - 230 [facility] Comment on above: Performed By: #### 2 30801 ####[facility],[address] [place] [address] 25625 D-DIMER, QUANTITATIVE Normal [facility] Comment on above: Result Comment: ANUP T D-DIMER Performed By: #### 2 31324 ####[facility],[address] [place] [address] 68121 TROPONIN I, HIGH SENSITIVITY on 03-06-2022 HS TROPONIN 6.3 pg/mL Normal 0.0 - 51.4 [facility] Comment on above: Performed By: #### 2 80471 #### [facility],[address] [place] [address] 16206 HS TROPONIN 5.4 pg/mL Normal 0.0 - 51.4 [facility] Comment on above: Performed By: #### 2 17046 #### [facility],[address] [place] [address] 51261 EMERGENCY REPORTon 2 EMERGENCY REPORT [facility] EMERGENCY ROOM REPORT NAME ACCOUNT SEX AGE ADMIT DISCHARGE PT MED. RECORD# NUMBER DATE DATE TYPE RANJEET [id number] F 41 12/17/21 12/17/21 3 DELMY Martinez [id number] ROOM: ER DATE OF : 1980 DICTATING PHYSICIAN: Angeles Perales HISTORY OF PRESENT ILLNESS: The patient came in complaining of right-sided weakness. She said around 6:15 she woke up and she felt a sudden pain on the right side of her head. It lasted for about a minute, and then she could not move her right side. She said the pain was an 8 out of 10. She denies any chest pain. No shortness of breath. No nausea or vomiting. She did drive to the hospital. 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 She also has fibromyalgia, diabetes type 2, and she has had episodes of this in the past where she could not move her right side, and she actually received TPA at one time. She also has a history of gastroparesis, migraine headaches, hypothyroidism, HDL deficiency, syncopal episodes in the past, obesity, and epilepsy. PAST SURGICAL HISTORY: She has had multiple surgeries, appendectomy, cholecystectomy, , and hysterectomy. REVIEW OF SYSTEMS: Ten systems reviewed and negative except as mentioned above. PHYSICAL EXAMINATION: GENERAL: She is an awake, alert, and oriented female in no acute respiratory distress. HEENT: Head is normocephalic and atraumatic. Eyes: Pupils are equal, round, and reactive to light. Extraocular muscles are intact. Nares are patent. Throat has good oral moisture. HEART: Heart is regular rate and rhythm without murmur. S1 equals S2. No S4 appreciated. LUNGS: Lungs are clear to auscultation bilaterally. No rales, rhonchi, or retractions. ABDOMEN: Abdomen is soft, nontender, and nondistended. SKIN: Skin is warm and dry. DIAGNOSTIC DATA: Chemistries were unremarkable. She did have a CTA of the head and neck, which were unremarkable. MRI was unremarkable. EMERGENCY DEPARTMENT COURSE AND TREATMENT: She does have right-sided facial droop and right-sided weakness. She also has some drift with her right leg. When she came in, we immediately activated the Tele Stroke Program. She was evaluated by a neurologist, who felt that we would not do TPA. The patient thought that Page 1 of 2 [facility] Emergency Room Report DELMY Martinez RANJEETDELMY : 1980 this could be a complex headache and/or conversion disorder. While she was here, she started moving her arm. DIAGNOSIS: Right-sided weakness, cause not clear. PLAN/DISPOSITION: She will be discharged to home. She will be told to return if any problems or concerns. She is to followup with Dr. West in 1 to 2 days. She was also told not to drive until cleared by a physician. Critical Care time was 35 minutes excluding billable procedures. Dictated By: Angeles Perales DO 12/17/21 20:51 JOB #: [id number] Transcribed By: am 12/18/21 19:01 Electronically signed by: DAVID Perales DO 12/19/21 07:54 Page 2 of 2 [facility] [place], Emergency Room Report DELMY Martinez Normal [facility] CBC + DIFFon 12-17-2021 Baso # 0.20 x10EE3/UL High 0.00 - 0.10 [facility] Comment on above: Performed By: #### 2 00967 ####[facility],[address] [place] [address] 64582 Basophils/100 WBC (Bld) 2.3 % High 0.0 - 2.0 [facility] Comment on above: Performed By: #### 2 53936 ####[facility],[address] [place] [address] 03130 CBC + DIFF Normal [facility] Comment on above: Result Comment: CBC- COMPLETE BLOOD COUNT Performed By: #### 2 09464 ####[facility],[address] [place] [address] 02447 EO # 0.40 x10EE3/UL Normal 0.00 - 0.50 [facility] Comment on above: Performed By: #### 2 89636 ####[facility],[address] [place] [address] 36678 Eosinophils/100 WBC (Bld) 5.9 % Normal 0.0 - 7.0 [facility] Comment on above: Performed By: #### 2 30993 ####[facility],[address] [address] Erythrocyte distribution width (RBC) [Ratio] 15.7 % High 12.0 - 15.6 [facility] Comment on above: Performed By: #### 2 03159 ####[facility],[address] [place], [place] [address] Hematocrit (Bld) [Volume fraction] 42.3 % Normal 34.0 - 46.0 [facility] Comment on above: Performed By: #### 2 33781 ####[facility],[address] [place], [place] [address] Hemoglobin (Bld) [Mass/Vol] 14.2 g/dL Normal 12.0 - 16.0 [facility] Comment on above: Performed By: #### 2 57281 ####[facility],[address] [place] [address] 74259 Lymph # 1.90 x10EE3/UL Normal 0.80 - 2.80 [facility] Comment on above: Performed By: #### 2 08194 ####[facility],[address] [place] [address] 29828 Lymphocytes/100 WBC (Bld) 29.3 % Normal 20.0 - 45.0 [facility] Comment on above: Performed By: #### 2 47494 ####[facility],[address] [place] [address] 97395 MANUAL DIFF N/A Normal [facility] Comment on above: Performed By: #### 2 18883 ####[facility],[address] [address] MCH (RBC) [Entitic mass] 27 pg Normal 27 - 33 [facility] Comment on above: Performed By: #### 2 40024 ####[facility],[address] [address] MCHC 34 X10 3 Normal 32 - 36 [facility] Comment on above: Performed By: #### 2 78368 ####[facility],[address] [address] MCV (RBC) [Entitic vol] 81 fL Normal 80 - 99 [facility] Comment on above: Performed By: #### 2 58486 ####[facility],[address] [address] Wilkinson # 0.50 x10EE3/UL Normal 0.20 - 1.00 [facility] Comment on above: Performed By: #### 2 12451 ####[facility],[address] [place] [address] MONOS % 7.3 % Normal 0.0 - 10.0 [facility] Comment on above: Performed By: #### 2 35612 ####[facility],[address] [place] [address] 46604 Morphology Dalton (Bld) [Interp] N/A Normal [facility] Comment on above: Result Comment: {CD] Performed By: #### 2 81181 ####[facility],[address] [place], [place] [address] Neut # 3.60 x10EE3/UL Normal 1.50 - 7.10 [facility] Comment on above: Performed By: #### 2 47399 ####[facility],[address] [place] [address] 18167 Neutrophils/100 WBC (Bld) 55.2 % Normal 46.0 - 76.0 [facility] Comment on above: Performed By: #### 2 32153 ####[facility],[address] [place] [address] 78360 PLATELET 266 x10EE3/UL Normal 150 - 450 [facility] Comment on above: Performed By: #### 2 09813 ####[facility],[address] [place] [address] 06181 Platelet mean volume (Bld) [Entitic vol] 7.8 fL Normal 6.6 - 10.5 [facility] Comment on above: Result Comment: AUTO MATED DIFFERENTIAL Performed By: #### 2 90283 ####[facility],[address] [place] [address] 48348 RBC 5.24 x 10EE6/UL Normal 4.10 - 5.30 [facility] Comment on above: Performed By: #### 2 81862 ####[facility],[address] [place] [address] 07414 WBC 6.6 x 10EE3/UL Normal 4.5 - 10.8 [facility] Comment on above: Performed By: #### 2 59176 ####[facility],[address] [place] [address] 19321 CMP with eGFRon 12-17-2021 AGE 41 years Normal [facility] Comment on above: Performed By: #### 2 66697 #### [facility],[address] [place] [address] 24112 Albumin [Mass/Vol] 3.5 g/dL Normal 3.4 - 5.0 [facility] Comment on above: Performed By: #### 2 95325 #### [facility],[address] [place] [address] 98508 Albumin/Globulin [Mass ratio] 0.9 {ratio} Normal 0.9 - 1.6 [facility] Comment on above: Performed By: #### 2 71776 #### [facility],[address] [place] [address] 07510 ALK PHOS 96 U/L Normal 46 - 116 [facility] Comment on above: Performed By: #### 2 25869 #### [facility],[address] [place], [place] [address] ALT [Catalytic activity/Vol] 52 U/L Normal 14 - 59 [facility] Comment on above: Performed By: #### 2 67938 #### [facility],[address] [address] Anion gap [Moles/Vol] 15 mmol/L Normal 10 - 20 [facility] Comment on above: Performed By: #### 2 07812 #### [facility],[address] [place] [address] AST [Catalytic activity/Vol] 22 U/L Normal 13 - 39 [facility] Comment on above: Performed By: #### 2 23191 #### [facility],[address] [place], [place] [address] B/C RATIO 13 ratio Normal 0 - 30 [facility] Comment on above: Performed By: #### 2 70475 #### [facility],[address] [place] [address] 53740 Bilirubin [Mass/Vol] 0.4 mg/dL Normal 0.2 - 1.0 [facility] Comment on above: Performed By: #### 2 90308 #### [facility],[address] [place] [address] 78870 Calcium [Mass/Vol] 8.8 mg/dL Normal 8.5 - 10.1 [facility] Comment on above: Performed By: #### 2 45553 #### [facility],[address],[place] [address] Chloride [Moles/Vol] 105 mmol/L Normal 98 - 107 [facility] Comment on above: Performed By: #### 2 14380 #### [address] [address] CMP with eGFR Normal [facility] Comment on above: Result Comment: COMP REHENSIVE METABOLIC PANEL Performed By: #### 2 79075 #### [place] [id number] CO2 [Moles/Vol] 21.9 mmol/L Normal 21.0 - 32.0 [facility] Comment on above: Performed By: #### 2 38018 #### [place] [id number] Creatinine [Mass/Vol] 0.98 mg/dL Normal 0.55 - 1.02 [facility] Comment on above: Performed By: #### 2 36747 #### [facility],[address] [place], [place] [address] GFR/1.73 sq M.predicted among non-blacks MDRD (S/P/Bld) [Vol rate/Area] mL/min/{1.73_m2} Normal 60 - 999 [facility] Comment on above: Performed By: #### 2 41538 #### [place] [address] Result Comment: ACCO RDING TO THE NATIONAL KIDNEY DISEASE EDUCATION PROGRAM(NKDE), A NORMAL eGFR IS A VALUE GREATER THAN OR EQUAL TO 60 ML/MIN/1.73 SQ METERS. CHRONIC KIDNEY DISEASE: <60mL/MIN/1.73 SQ METERS KIDNEY FAILURE: <15mL/MIN/1.73 SQ METERS THIS TEST SHOULD ONLY BE USED FOR PATIENTS 18 YEARS OF AGE AND OLDER. Globulin (S) [Mass/Vol] 4.0 g/dL High 1.5 - 3.8 [facility] Comment on above: Performed By: #### 2 53978 #### [place] [id number] Glucose [Mass/Vol] 169 mg/dL High 74 - 106 [facility] Comment on above: Performed By: #### 2 12615 #### [facility],[address] [place] [address] 98072 Potassium [Moles/Vol] 3.8 mmol/L Normal 3.5 - 5.1 [facility] Comment on above: Performed By: #### 2 93913 #### [facility],[address] [place] [address] 24723 Protein [Mass/Vol] 7.5 g/dL Normal 6.4 - 8.2 [facility] Comment on above: Performed By: #### 2 22351 #### [facility],[address] [place] [address] 63367 Sodium [Moles/Vol] 138 mmol/L Normal 136 - 145 [facility] Comment on above: Performed By: #### 2 30052 #### [facility],[address] [place] [address] 55318 Urea nitrogen [Mass/Vol] 13 mg/dL Normal 7 - 18 [facility] Comment on above: Performed By: #### 2 02613 #### [facility],[address] [place] [address] ANGIOGRAPHY HEAD W/CONTRA STon 12-17-2021 CT ANGIOGRAPHY HEAD W/CONTRAST [place] [address] Patient: DELMY BUCHANAN Phone#: : 1980 Age: 41 Gender: F Pt. Type: ER Account: [id number] Location: [facility] Ordering: ANGELES PERALES Exam Date: 12/17/2021/8:30 Family Phys: Charge Code: [id number] Physician: [place] Order #: [id number] DLP Dose#: 31.2 PROCEDURE: CT ANGIOGRAPHY HEAD WITH CONTRAST COMPARISON: [facility], CT, ANGIOGRAPHY HEAD, 07/19/2019, 22:05. INDICATIONS: Weakness. TECHNIQUE: After obtaining the patient's consent, CT images of the head were obtained with non- ionic contrast, and MPR and 3D imaging were created and interpreted to optimize visualization of vascular anatomy. All CT scans at this facility use dose modulation, iterative reconstruction, and/or weight based dosing when appropriate to reduce radiation dose to as low as reasonably achievable. IV CONTRAST: No IV contrast used,ml TOTAL DOSE: CTDIvol(mGy) FINDINGS: VASCULATURE: Normal. No significant stenosis. No visible aneurysm or vascular malformation. VENTRICLES: Normal for age. No enlargement or displacement. CEREBRUM: Normal for age. No excessive atrophy, mass, or hemorrhage, or abnormal enhancement. CEREBELLUM: Normal for age. No excessive atrophy, mass, or hemorrhage, or abnormal enhancement. BRAINSTEM: Normal for age. No excessive atrophy, mass, or hemorrhage, or abnormal enhancement. BASAL CISTERNS: Normal. No subarachnoid hemorrhage or effacement. SKULL: Negative. CONCLUSION: No acute disease. Dictated by: Melissa Malone MD on 12/17/2021 at 9:19 Continued Report - Page 2 of 2 Patient: DELMY BUCHANAN Phone#: : 1980 Age: 41 Gender: F Pt. Type: ER Account: [id number] Location: 052 Ordering: ANGELES PERALES Exam Date: 12/17/2021/8:30 Family Phys: Charge Code: [id number] Physician: [place] Order #: [id number] DLP Dose#: 31.2 Approved by: Melissa Malone MD on 12/17/2021 at 9:[address] [facility] [address] ANGIOGRAPHY [facility] 2021 CT ANGIOGRAPHY [place] [address] Patient: DELMY BUCHANAN Phone#: : 1980 Age: 41 Gender: F Pt. Type: ER Account: [id number] Location: 052 Ordering: ANGELES PERALES Exam Date: 12/17/2021/8:30 Family Phys: Charge Code: [id number] Physician: [place] Order #: [id number] DLP Dose#: 30.2mGy PROCEDURE: CT ANGIOGRAPHY CAROTIDS WITH CONTRAST COMPARISON: [facility], CT, ANGIOGRAPHY CAROTIDS, 07/19/2019, 22:05. INDICATIONS: Weakness. TECHNIQUE: After obtaining the patient's consent, CT images of the neck were obtained with non- ionic intravenous contrast material. MPR/MIPS and 3D images were created to optimize visualization of vascular anatomy. All CT scans at this facility use dose modulation, iterative reconstruction, and/or weight based dosing when appropriate to reduce radiation dose to as low as reasonably achievable. IV CONTRAST: Omnipaque 350,80ml TOTAL DOSE: 30.2 CTDIvol(mGy) FINDINGS: LEFT INTERNAL CAROTID: No hemodynamically significant stenosis or dissection. EXTERNAL CAROTID: No hemodynamically significant stenosis or dissection. COMMON CAROTID: No hemodynamically significant stenosis or dissection. VERTEBRAL: No hemodynamically significant stenosis or dissection. The left vertebral artery is diminutive. RIGHT INTERNAL CAROTID: No hemodynamically significant stenosis or dissection. EXTERNAL CAROTID: No hemodynamically significant stenosis or dissection. COMMON CAROTID: No hemodynamically significant stenosis or dissection. VERTEBRAL: No hemodynamically significant stenosis or dissection. OTHER: The visualized soft tissues of the neck are also unremarkable. CONCLUSION: No acute disease. [place] [address] Patient: DELMY BUCHANAN Phone#: : 1980 Age: 41 Gender: F Pt. Type: ER Account: [id number] Location: 052 Ordering: ANGELES PERALES Exam Date: 12/17/2021/8:30 Family Phys: Charge Code: [id number] Physician: [place] Order #: [id number] DLP Dose#: 30.2mGy Dictated by: Melissa Malone MD on 12/17/2021 at 9:13 Approved by: Melissa Malone MD on 12/17/2021 at 9:[address] [facility] [address] BRAIN W/O CONTRASTon 08-1 0-2022 CT BRAIN W/O CONTRAST [address] [address] Patient: DELMY BUCHANAN Phone#: : 1980 Age: 41 Gender: F Pt. Type: ER Account: [id number] Location: 052 Ordering: ANGELES PERALES Exam Date: 12/17/2021/7:19 Family Phys: Charge Code: [id number] Physician: [place] Order #: [id number] DLP Dose#: 57.50 PROCEDURE: CT BRAIN WITHOUT CONTRAST COMPARISON: [facility], CT, BRAIN W/O CON, 05/07/2020, 21:35. INDICATIONS: Stroke alert. TECHNIQUE: CT images were obtained without contrast material. All CT scans at this facility use dose modulation, iterative reconstruction, and/or weight based dosing when appropriate to reduce radiation dose to as low as reasonably achievable. IV CONTRAST: No IV contrast used,0ml TOTAL DOSE: 57.50 CTDIvol(mGy) FINDINGS: CEREBRUM: No edema, hemorrhage, mass, acute infarction, or inappropriate atrophy. CEREBELLUM: No edema, hemorrhage, mass, acute infarction, or inappropriate atrophy. BRAINSTEM: No edema, hemorrhage, mass, acute infarction, or inappropriate atrophy. CSF SPACES: Ventricles, cisterns, and sulci are appropriate for age. No hydrocephalus, subarachnoid hemorrhage, or mass. Mild irregularity of midline structures raising the possibility of partial agenesis of the corpus callosum without change since previous exam. SKULL: No mass or other significant visible lesion. SINUSES: Limited views demonstrate no significant mucosal thickening or fluid. ORBITS: Limited views are unremarkable. OTHER: Negative. CONCLUSION: No acute disease. No significant change has occurred. Dictated by: Melissa Malone MD on 12/17/2021 at 8:14 Continued Report - Page 2 of 2 Patient: DELMY BUCHANAN Phone#: : 1980 Age: 41 Gender: F Pt. Type: ER Account: [id number] Location: 052 Ordering: ANGELES PERALES Exam Date: 12/17/2021/7:19 Family Phys: Charge Code: [id number] Physician: [place] Order #: [id number] DLP Dose#: 57.50 Approved by: Melissa Malone MD on 12/17/2021 at 8:16 Normal [facility] MR MRI BRAIN W/O CONTRASTon 12-17-2021 MR MRI BRAIN W/O CONTRAST [place] [address] Patient: DELMY BUCHANAN Phone#: : 1980 Age: 41 Gender: F Pt. Type: ER Account: [id number] Location: [facility] Ordering: ANGELES PERALES Exam Date: 12/17/2021/8:39 Family Phys: Charge Code: [id number] Physician: [place] Order #: [id number] DLP Dose#: PROCEDURE: MRI BRAIN WITHOUT CONTRAST COMPARISON: [facility], MR, BRAIN W/O CON, 05/07/2020, 14:42. INDICATIONS: Slurred speech TECHNIQUE: A variety of imaging planes and parameters were utilized for visualization of suspected pathology. Images were performed without contrast. FINDINGS: CEREBRUM: No edema, hemorrhage, mass, acute infarction, or inappropriate atrophy. Few small foci of abnormal signal are seen adjacent to the posterior horn of the left lateral ventricle on FLAIR imaging and are nonspecific. Possibility of demyelinating disease versus remote inflammatory or infectious etiology is raised. There has been no change since the prior exam. 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 CEREBELLUM: No edema, hemorrhage, mass, acute infarction, or inappropriate atrophy. BRAINSTEM: No edema, hemorrhage, mass, acute infarction, or inappropriate atrophy. CSF SPACES: Ventricles, cisterns, and sulci are appropriate for age. No hydrocephalus, subarachnoid hemorrhage, or mass. SKULL: No mass or other significant visible lesion. SINUSES: There is mucosal thickening in the ethmoid sinuses. ORBITS: Limited views are unremarkable. OTHER: Negative. CONCLUSION: 1. Nonspecific foci seen on FLAIR imaging without change since prior exam adjacent to the posterior horn of the left lateral ventricle. 2. There is no evidence of acute intracranial abnormality. Dictated by: Melissa Malone MD on 12/17/2021 at 9:21 Approved by: Melissa Malone MD on 12/17/2021 at 9:27 Normal [facility] Provider Note - ED v3on 05-10 Provider Note - ED v3 Provider Note: Chart Review: HISTORY OF PRESENTING ILLNESS DELMY is a 40 year old Female and was seen by me at 26-May-2021 12:56. Triage Information: Most recent Vital Sign Value Date PAST MEDICAL HISTORY CURRENT OR FORMER SUBSTANCE USE: Tobacco/Nicotine Use: never smoker Alcohol Use: denies ALLERGIES/INTOLERANCES: Allergy Allergen: contrast (specific type unknown) Type: Contrast Reaction: Other Allergen: metformin Type: Drug Reaction: Other Allergen: morphine Type: Drug Reaction: Seizure Allergen: nortriptyline Type: Drug Reaction: Arrhythmia Other Allergen: nortriptyline Type: Drug Reaction: Arrhythmia Allergen: sulfa drugs Type: Drug Category Reaction: Seizure Allergen: sulfa drugs Type: Drug Category Reaction: Hives/Urticaria Allergen: metformin Type: Drug Reaction: Unknown Allergen: morphine Type: Drug Reaction: Unknown HEALTH HISTORY: Medical History Name:Weakness Code:R53.1 Name:T2DM (type 2 diabetes mellitus) Code:E11.9 Name:Epilepsy Code:G40.909 Name:Fibromyalgia Code:M79.7 Name:Rheumatoid arthritis Code:M06.9 Name:Fatigue Code:R53.83 OUTPATIENT MEDICATIONS: Home Medications Review Status for Reconciliation: Incomplete Med Status: Incomplete Medication History Drug Name: gabapentin 300 mg oral tablet Instructions: 1 tab(s) orally 3 times a day Drug Name: traMADol 50 mg oral tablet Instructions: 1 tab(s) orally 2 times a day, As Needed Drug Name: topiramate 50 mg oral tablet Instructions: 1 tab(s) orally once a day (in the morning) Drug Name: topiramate 100 mg oral tablet Instructions: 1 tab(s) orally once a day (at bedtime) Drug Name: acetaminophen 325 mg oral tablet Instructions: 2 tab(s) orally every 4 hours, As needed, Pain - Mild (1-3) Drug Name: brompheniramine/pseudoephedr ine/dextromethorphan [id number]-08ne/5 mL oral syrup Instructions: 5 milliliter(s) orally every 6 hours Drug Name: doxycycline hyclate 100 mg oral tablet Instructions: 1 tab(s) orally 2 times a day Drug Name: Topamax 100 mg oral tablet Instructions: 1 tab(s) orally 2 times a day Drug Name: Jardiance 25 mg oral tablet Instructions: 1 tab(s) orally once a day (in the morning) Drug Name: [place] Thyroid 30 mg oral tablet Instructions: 1 tab(s) orally once a day Drug Name: brompheniramine/pseudoephedr ine/dextromethorphan [id number]-[id number]-14sc/5 mL oral syrup Instructions: 10 milliliter(s) orally every 6 hours, As Needed for cough/congestion SIGNIFICANT EVENTS: No documented data. CRITICAL CARE VITAL SIGNS: T PRBP SpO2O2(LPM) %FiO2 Method 26-May-2021 12:53:[id number]/84 97 MDM MDM/ED COURSE: This note was dictated using Dragon Dictation there may be errors in spelling, grammar, formatting, and misrecognization of what was dictated. Chief Complaint: ``I have flu like symptoms HPI Historian Patient States that symptoms started 1 days ago. Complains of see ROS. Denies see ROS Has tried taking Aleve with little relief. Factors that aggravate symptoms include Up and about, laying down. Patient was not recently exposed to sick contact. Patient has had similar symptoms like this before when she has had the flu. History of COVID infection: December 2020 Vaccination for COVID: Denies Review of Systems (+)=Complains of (-)= Denies General: : (-)Weakness, (+)Fatigue,(+)Headache and (+)Fever. Mouth/Throat: (-) Sore Throat, (+ )Hoarseness, (-)Bleeding Gums Eyes:(-) Eye pain, (-)change in vision,( -)flashing lights. Neck:(-) Swollen Glands, (-)Stiffness, Nose/Sinuses:(+) Nasal Stuffiness, (+)Congestion, (-)Discharge, (+)Sinus Pressure. Ears: (-) Pain, (-) Fullness (-)Discharge, (-)Ringing, (-) Dizziness. Skin: (-) itching,(-) change to hair and nails,( -)rash Pulmonary: (+) Cough(,productive), (+) Dyspnea, (-)Wheezing. Cardiac: (+ when coughing) Chest pain, (-)Edema. Gastrointestinal: (-) Nausea,(-) Vomiting,( -)Diarrhea( -)Abdominal Pain. Psychological: (-) Anxiety, (-) Depression, (-) Thoughts of self-harm. PHYSICAL EXAM Patient in seated position. Appearance mildly ill well groomed, alert and orientated, no acute distress, speech clear, and evenly paced, good historian, cooperative. Head: Normocephalic Ear: External pinna skin intact with no mases, lesions, tenderness, or discharge. Otoscopic: Landmarks external canals clear with no redness swelling, lesions, discharge. TM bilaterally pearly clark with light reflex and landmarks intact, no perforation. Eye: Light reflex: symmetrical bilaterally Inspection: Brows and lashes present no ptosis, conjunctiva clear, sclera white, cornea smooth and clear no lesions. Nose: Nose symmetric, no deformity, or lesions, nares patent, mucosa pink, no discharge, lesions, polyps, no septal deviation or perforation. Sinus : [No] tenderness to (more content not included)... Normal [facility] Hemoglobin A1con 02-14-2021 Glucose [Mass/Vol] 249 mg/dL Normal [facility] Comment on above: Performed By: #### H BA1C #### [facility] Routine Lab [address], [place] [id number] HbA1c (Bld) [Mass fraction] 10.3 % High 4.3-5.6 [facility] Comment on above: Performed By: #### H BA1C #### [facility] Routine Lab [address] [place], [place] [id number] Final Surgical Pathology Rep [facility] 02-05-2021 Final Surgical Pathology Report . Pathology Reports Accession: Collected Date/Time: Received Date/Time: Pathologist: [id number] 02/01/2021 13:52 EDT 02/03/2021 13:52 EDT JHONATAN LAWTON MD Final Surgical Pathology Report DIAGNOSIS: APPENDIX, APPENDECTOMY SPECIMEN - SUBACUTE APPENDICITIS WITH PERIAPPENDICEAL FIBROSIS. COMMENT: Jhoana# [id number] CLINICAL INFORMATION: APPENDICITIS SPECIMEN: A APPENDIX GROSS DESCRIPTION: A. Received in formalin, labeled with the patients name, Case #[id number], and appendix , Dimensions-6 x 0.7 cm Serosal surface-everett predominantly smooth the distal tip is surrounded by mesoappendix. Lumen-filled with brown fecal material measuring up to 0.5 cm Wall thickness-0.3 cm. RS- 1 Dictated by ROULA BAUTISTA MICROSCOPIC DESCRIPTION: Slides reviewed. Electronically Signed by Pathology Report verified by [facility] Electronically signed by JHONATAN LAWTON Sign out Date: 02/05/2021 12:01 Performing Lab: [facility], [address] [place] [address] ([place]) Comment on above: Performed By: #### S PFR #### [place] [id number] CORONAVIRUS 2019 BY PCRon SARS-CoV-2 (COVID-19) RNA GRECIA+probe Ql (Unsp spec) Not detected Normal Not Detected [facility] Comment on above: Result Comment: . This assay is designed to detect the N, ORF1ab and/or S genes of SARS-CoV-2 via nucleic acid amplification. A Negative (NOT DETECTED) result does not preclude 2019-nCoV infection since the adequacy of sample collection and/or low viral burden may result in presence of viral nucleic acids below the clinical sensitivity of this test method. Negative (NOT DETECTED) result should not be used as the sole basis for treatment or other patient management decisions. Rather negative results should be combined with clinical observations, patient history, and epidemiological information to make patient management decisions. Fact sheet for providers: https://www.fda.gov/media/289164/download Fact sheet for patients: https://www.fda.gov/media/444268/download This test has received FDA Emergency Use Authorization (EUA) and has been verified by [facility] ([facility]). This test is only authorized for the duration of time that circumstances exist to justify the authorization of the emergency use of in vitro diagnostic tests for the detection of SARS-CoV-2 virus and/or diagnosis of COVID-19 infection under section 564(b)(1) of the Act, 21 U.S.C. 360bbb-3(b)(1), unless the authorization is terminated or revoked sooner. [facility] is certified under CLIA-88 as qualified to perform high complexity testing. Testing is performed in the [facility] laboratories located at [id number] [place] [address]. Performed By: #### C OV19 #### [facility] [address] [facility] [place] [address] Covid 19 Resultson 1 SARS-CoV-2 (COVID-19) RNA GRECIA+probe Ql (Unsp spec) NEGATIVE COVID-19 Test Coronaviruses are common world-wide and are the cause of many common colds. SARS-COV2 is a new coronavirus that began circulating worldwide in 2019 so we are calling it COVID-19. It has been estimated that four out of five patients with COVID-19 will recover at home without the need for medical attention. Symptoms of COVID-19 may include cough, fever, shortness of breath, loss of taste or smell and other flu-like symptoms including chills, sore muscles, sore throat, and headache. Severe illness is more common in older people and people with other health problems such as high blood pressure, obesity, and immune system problems. If the test is positive, you have COVID-19. You will be contacted by the ordering physicians office and instructed to remain on home isolation, in accordance with CDC guidelines. You may also be contacted by the [facility] to see if any of your close contacts may have been exposed to the virus and need to quarantine. If the test is negative, you likely do not have COVID-19 at this time, but you still may have a different illness that can spread to other people (like Influenza, or the Flu) and could still be at risk for getting COVID-19. We recommend that you stay away from other people to limit the spread of illness until your symptoms are improving and you are fever-free for 24 hours without the use of fever lowering medications such as acetaminophen or ibuprofen. No test is 100% accurate so if you are still concerned you may have COVID-19, talk to your doctor about the need to continue to stay away from others. Medicines Unless your provider told you not to use the following: Acetaminophen (Tylenol and others) is generally safe. Anti-inflammatory medications, such as Ibuprofen (Advil or Motrin) or Naproxen (Aleve) can also be used. Uyxo-rkp-mlobzpg cough and cold medicines can be used according to the instructions on the package. Some bmvf-rzx-ovfsadc medicines also contain acetaminophen. Make sure you are not taking more than your recommended dose. For those not hospitalized, there is no specific treatment available for this illness. Antibiotics do not treat Coronaviruses. Follow-Up Follow up with your doctor by scheduling a virtual visit or consider follow-up at one of our urgent care fever clinics. If you are having difficulty breathing, or are very weak and having difficulty standing, this is a medical emergency. Call 911 or have someone take you to the nearest emergency room immediately. If possible, wear a facemask. Additional guidance from the CDC for patients who tested POSITIVE for COVID-19 How to isolate: Isolate yourself in a specific room at home and limit your contact with others. Use a separate bathroom from other members of the household, when possible. Leave home only to get essential medical care. Do not go to work, school or public areas. Avoid using public transportation, ride-sharing, or taxis. Restrict contact with pets and other animals. If you must care for your pet or be around animals while you are sick, wash your hands before and after your interaction and wear a facemask. Make sure that shared spaces in the home have good airflow, such as by an air conditioner or an opened window, weather permitting. Personal Hygiene Procedures: Wear a face mask when in the same room as other people or pets. If a face mask interferes with your breathing, others should wear a mask when sharing space with you. Frequent hand-washing: wash your hands with soap and water for at least 20 seconds. If soap and water are not available, use alcohol-based hand rabies inspector. Avoid touching your eyes, nose, and mouth with unwashed hands. Household Hygiene Procedures: Avoid sharing personal household items such as dishes, glassware, cups, eating utensils, towels or bedding with other people or pets in your home. After use, these items should be washed with soap and hot water. Disinfect all high-touch surfaces every day with antibacterial cleaning solutions such as Lysol wipes, bleach, cleansers, etc. High-touch surfaces include tabletops, doorknobs, bathroom fixtures, toilets, phones, keyboards, tablets and bedside tables. Immediately clean any surfaces that may have blood, poop or body fluids on them, using antibacterial cleaning solutions such as Lysol wipes, bleach, cleansers, etc. If clothing or bedding come into contact with blood, poop or body fluids, they should be washed immediately. Follow the directions on the laundry detergent and clothing labels but hot water is recommended when possible. Stopping home isolation precautions: If possible, consult your doctor before stopping home isolation precautions. According to the CDC, you can discontinue home isolation precautions when you have met both of these criteria: Your fever and respiratory symptoms have been gone for 24 char (more content not included)... [facility] CORONAVIRUS 2019 BY PCRon DATE OF SYMPTOM ONSET [YYYYMMDD]? [id number] [facility] Comment on above: Performed By: #### C OV19 #### [facility] [address] [place] [address] Lab Specimen Source Nasal, Nasopharyngeal [facility] Comment on above: Performed By: #### C OV19 #### [facility] [address] [place] [address] Provider Note - ED v2on 12-08 Provider Note - ED v2 Provider Note - ED v2: Chart Review ED NOTES ED NOTES: Patient came in with complaints of extreme fatigue body aches. Patient says it started yesterday. Patient denies any other symptoms at this time. HISTORY OF PRESENTING ILLNESS DELMY is a 40 year old Female and was seen by me at 23-Dec-2020 13:26. The historian is the patient. Triage Information: Most recent Vital Sign Value Date PAST MEDICAL HISTORY ATTESTATION: I have reviewed and confirmed nurse's/medic's notes for patient's medications, allergies, and medical, surgical, family and social history PSYCHOSOCIAL SCREENING: NO: concerns for safety at home, feelings of depression, feels like hurting others and feels like hurting self ALLERGIES/INTOLERANCES: Allergy Allergen: contrast (specific type unknown) Type: Contrast Reaction: Other Allergen: metformin Type: Drug Reaction: Other Allergen: morphine Type: Drug Reaction: Seizure Allergen: nortriptyline Type: Drug Reaction: Arrhythmia Other Allergen: nortriptyline Type: Drug Reaction: Arrhythmia Allergen: sulfa drugs Type: Drug Category Reaction: Seizure Allergen: sulfa drugs Type: Drug Category Reaction: Hives/Urticaria Allergen: metformin Type: Drug Reaction: Unknown Allergen: morphine Type: Drug Reaction: Unknown HEALTH HISTORY: Medical History Name:Weakness Code:R53.1 Name:T2DM (type 2 diabetes mellitus) Code:E11.9 Name:Epilepsy Code:G40.909 Name:Fibromyalgia Code:M79.7 Name:Rheumatoid arthritis Code:M06.9 Name:Fatigue Code:R53.83 OUTPATIENT MEDICATIONS: Home Medications Review Status for Reconciliation: Incomplete Med Status: Incomplete Medication History Drug Name: gabapentin 300 mg oral tablet Instructions: 1 tab(s) orally 3 times a day Drug Name: traMADol 50 mg oral tablet Instructions: 1 tab(s) orally 2 times a day, As Needed Drug Name: topiramate 50 mg oral tablet Instructions: 1 tab(s) orally once a day (in the morning) Drug Name: topiramate 100 mg oral tablet Instructions: 1 tab(s) orally once a day (at bedtime) Drug Name: acetaminophen 325 mg oral tablet Instructions: 2 tab(s) orally every 4 hours, As needed, Pain - Mild (1-3) Drug Name: brompheniramine/pseudoephedr ine/dextromethorphan 8yv-10nz-70ds/5 mL oral syrup Instructions: 5 milliliter(s) orally every 6 hours Drug Name: doxycycline hyclate 100 mg oral tablet Instructions: 1 tab(s) orally 2 times a day Drug Name: Topamax 100 mg oral tablet Instructions: 1 tab(s) orally 2 times a day Drug Name: Jardiance 25 mg oral tablet Instructions: 1 tab(s) orally once a day (in the morning) Drug Name: [place] Thyroid 30 mg oral tablet Instructions: 1 tab(s) orally once a day SIGNIFICANT EVENTS: No documented data. BURRER HAND: Is : no Is : no REVIEW OF SYSTEMS CONSTITUTIONAL: POSITIVE for: malaise MUSCULOSKELETAL: POSITIVE for: pain All other systems reviewed and are negative RESULTS/VITAL SIGNS VITAL SIGNS: T PRBP SpO2O2(LPM) %FiO2 Method 23-Dec-2020 13:11:[id number]/80 97 PHYSICAL EXAM CONSTITUTIONAL: Well appearing, well nourished, awake, alert, oriented to person, place, time/situation and in no apparent distress. HENMT: Airway patent, Face with no lymph node enlargement. EYES: pupils are accommodating CARDIOVASCULAR: Normal rate, regular rhythm. RESPIRATORY: Breath sounds clear and equal bilaterally and unlabored. no Rales rhonchi or crackles. GASTROINTESTINAL: Abdomen soft, non-distended, no rebound, no guarding. Bowel sounds normal in all 4 quadrants. GENITOURINARY: No discharge, no lesions. MUSCULOSKELETAL: range of motion is not limited, no muscle or joint tenderness. NEUROLOGICAL: Alert and oriented, no focal deficits, no motor or sensory deficits. SKIN: Skin normal color for race, warm, dry and intact. No evidence of trauma. PSYCHIATRIC: Alert and oriented to person, place, time/situation. normal mood and affect. No apparent risk to self or others. HEME/LYMPH: No cervical adenopathy. CLINICAL IMPRESSION Diagnosis/Annotation: Fatigue Code:R53.83 Disposition: discharged Type: home ATTESTATION Comments/Additional Findings: Patient was well for Covid and sent home to self quarantine. At this time patient was instructed to increase water intake rest and take in what over ztvf-xwi-omdtnee will help such as Mucinex ibuprofen. Patient was okay with this care plan and will follow up with signs and symptoms seem to be getting worse not better. CRITICAL CARE TIME Is this a critically ill patient: no Electronic Signatures for Addendum Section: Dianelys De La Rosa (DB2 SYSTEMS PROGRAMMER-ACCOUNTING COORDINATOR) (Signed Addendum 24-Dec-2020 08:21) Reviewed negative COVID-19 test results and CDC recommendations with patient. No questions/concerns verbalized. Electron (more content not included)... Normal [facility] Daily Progress Note-Emergenc y Medicineon 07-11-2020 Daily Progress Note-Emergency Medicine Consult Type: subsequent visit/care Service: Emergency Medicine Subjective Data: DELMY BUCHANAN is a 39 year old Female who is Hospital Day # 3. admitted to the CDU for additional neurology work up. Overnight Events: Patient had an uneventful night. Objective Data: Objective Information: T PRBPSpO2 [id number]/6997% Date/Time07/10 19:303/4 6:103/4 6:103/4 6:103/4 6:10 Range(37.3C - 37.3C ) (60 - 80 ) (16 - 19 ) (109 - 176 )/ (58 - 95 ) (92% - 99% ) Highest temp of 37.3 C was recorded at 07/10 19:30 Pain reported at 07/10 16:48: 8 = Severe T PRBPSpO2 Value37.56466264/6997% Date/Time07/10 19:303/4 6:103/4 6:103/4 6:103/4 6:10 Range(37.3C - 37.3C ) (60 - 80 ) (16 - 19 ) (109 - 176 )/ (58 - 95 ) (92% - 99% ) Highest temp of 37.3 C was recorded at 07/10 19:30 Pain reported at 07/10 16:48: 8 = Severe Weights 07/10 10:29: Weight in lbs ((lbs)) 209.4 07/10 10:29: Weight in kg (Weight (kg)) 95 07/10 10:29: BMI (kg/m2) (BMI (kg/m2)) 33.82 Physical Exam by System: Constitutional: Well developed, awake/alert/oriented x3, no distress, alert and cooperative Eyes: PERRL, EOMI, ENMT: mucous membranes moist Head/Neck: normocephalic, atraumatic - small abrasion to the left cheek Respiratory/Thorax: Patent airways, CTAB, normal breath sounds with good chest expansion, Cardiovascular: Regular, rate and rhythm, no murmurs, 2+ equal pulses of the extremities, normal S 1and S 2 Gastrointestinal: Nondistended, soft, non-tender, no rebound tenderness or guarding Genitourinary: voids at baseline Neurological: alert and oriented x3, no paresthesia Psychological: Appropriate mood and behavior Medication: Medications: CENTRAL NERVOUS SYSTEM AGENTS: 1. Acetaminophen: 650 mg Oral Every 4 Hours PRN 2. Topiramate: 100 mg Oral 2 Times a Day METABOLIC AGENTS: 1. Insulin Glargine (Lantus) Injectable: 30 unit(s) SubCutaneous At Bedtime 2. Insulin Lispro Mild Corrective Scale: unit(s) SubCutaneous 3 Times a Day Before Meals 3. Dextrose 50% in Water Injectable: 25 gram(s) IntraVenous Push Every 15 Minutes PRN 4. Glucagon Injectable: 1 mg IntraMuscular Every 15 Minutes PRN Conditional Medication Orders ---- 1. Perflutren Lipid Microsphere (Activated) 1.3 mL / NaCL 0.9% T.V. 10 mL Injectable: 0.5 mL IntraVenous Push Once Recent Lab Results: Results: I have reviewed these laboratory results: Glucose_POCT Trending View [id number] 04:22:00 10-Jul-2020 21:29:00 10-Jul-2020 18:33:00 Glucose-[id number] H 215 H 164 H Topiramate Level, Serum 10-Jul-2020 11:53:00 ResultValue Topiramate Level, Serum <1.5 A Coronavirus 2018, Screen Asymptomatic 09-Jul-2020 23:30:00 ResultValue Fluid Source Nasal, Nasopharyngeal Coronavirus 2019,PCR NOT DETECTED Reference Range: Not Detected . This test has received FDA Emergency Use Authorization (EUA) and has been verified by [facility] ([facility]). This test is only authorized for the duration of time patricia Basic Metabolic Panel 09-Jul-2020 23:30:00 ResultValue Glucose, Serum 229 H NA 139 K 4.0 CL 109 H Bicarbonate, Serum 22 Anion Gap, Serum 12 BUN 15 CREAT 0.81 GFR-Non >60 GFR- >60 Calcium, Serum 8.6 Complete Blood Count 09-Jul-2020 23:30:00 ResultValue White Blood Cell Count 6.8 Nucleated Erythrocyte Count 0.0 Red Blood Cell Count 4.92 HGB 13.4 HCT 39.5 MCV 80 MCHC 33.9 PLT 221 RDW-CV 14.4 PT + INR, Plasma 09-Jul-2020 23:30:00 ResultValue Prothrombin Time, Plasma 10.3 International Normalized Ratio, Plasma 0.9 Fibrinogen Assay 09-Jul-2020 23:30:00 ResultValue Fibrinogen 311 Ethanol Level 09-Jul-2020 23:30:00 ResultValue Ethanol Level <10 Magnesium, Serum 09-Jul-2020 23:30:00 ResultValue Magnesium, Serum 1.83 Phosphorus, Serum 09-Jul-2020 23:30:00 ResultValue Phosphorus, Serum 3.8 Venous Full Panel 09-Jul-2020 23:23:00 ResultValue pH, Venous 7.34 pCO2, Venous 42 pO2, Venous 53 H Patient-Temperature 37.0 SO2, Venous 85 H HCT 41.0 Sodium-Level 137 Potassium-Level 3.8 Chloride-Level 106 Calcium, Ionized-Level 1.17 Glucose-Level 226 H Lactate-Level 1.5 Base Excess-Blood -3.0 L Bicarbonate, Calculated, Venous 22.7 HGB, Calculated 13.9 Anion Gap-Level 12 Radiology Results: Results: Conclusion: Please see ED Provider Note for formal interpretation Confirmed by MADISON GIORDANO CNP ([id number]) on 07/11/2020 1:19:52 AM Electrocardiogram 12 Lead [Jul 11 2020 1:19AM] Conclusion: CONCLUSIONS: 1. The left ventricular systolic function is normal with a 60-65% estimated ejection fraction. 2. Mild aortic valvestenosis. 3. No prior echocardiogram available for comparison. QUANTITATIVE DATA SUMMARY: 2D MEASUREMENTS: Normal Ranges: Ao Root d: 3.10 cm (2.0-3.7cm) LAs: 3.80 cm (2.7-4.0cm) IVSd: 1.00 cm (0.6-1.1cm) LVPWd: 1.00 cm (0.6-1.1cm) LVIDd: 4.30 cm (3.9-5.9cm) LVIDs: 2.60 cm LV Mass Index: 69.9 g/m2 LV % FS 39.5 % LA VOLUME: Normal Ranges: LA Vol A4C: 35.0 ml (22+/-6mL/m2) LA Vol A2C: 39.1 ml LA VolBP: 37.8 ml LA Vol Index A4C: 17.2ml/m2 LA Vol Index A2C: 19.2 ml/m2 LA Vol Index BP: 18.5 ml/m2 LA Area A4C: 14.2 cm2 LA Area A2C: 14.7 cm2 LA Major Gilbert A4C: 4.9 cm LA Major Gilbert A2C: 4.7 cm LA Volume Index: 18.5 ml/m2 RA VOLUME BY A/L METHOD: Normal Ranges: RA Area A4C: 13.2 cm2 AORTA MEASUREMENTS: Normal Ranges: Ao Sinus, d: 2.90 cm (2.1-3.5cm) Asc Ao, d: 3.40 cm (2.1-3.4cm) LV SYSTOLIC FUNCTION BY 2D PLANIMETRY (MOD): Normal Ranges: EF-A4C View: 69.7 % (>55%) EF-A2C View: 66.2 % EF-Biplane: 68.2 % LV DIASTOLIC FUNCTION: Normal Ranges: MV Peak E: 0.80 m/s (0.7-1.2 m/s) MV Peak A: 0.54 m/s (0.42-0.7 m/s) E/A Ratio: 1.49 (1.0-2.2) MV e' 0.11 m/s (>8.0) MV lateral e' 0.11 m/s MV medial e' 0.11 m/s MV A Dur: 116.00 msec E/e' Ratio: 7.29 (<8.0) MV DT: 195 msec (150-240 msec) PulmV Sys Raphael: 43.40 cm/s PulmV Clifton Raphael: 59.90 cm/s PulmV S/D Raphael: 0.70 PulmV A Revs Raphael: 28.00 cm/s PulmV A Revs Dur: 100.00 msec AORTIC VALVE: Normal Ranges: AoV Vmax: 1.35 m/s (<1.7m/s) AoV Peak P.3 mmHg (<20mmHg) LVOT Max Raphael: 0.83 m/s (<1.1m/s) LVOT VTI: 19.80 cm LVOT Diameter: 2.20 cm (1.8-2.4cm) AoV Area,Vmax: 2.34 cm2 (2.5-4.5cm2) RIGHT VENTRICLE: RV 1 3.82 cm RV 2 2.11 cm RV 3 6.36 cm TAPSE: 26.9 mm RV s' 0.16 m/s TRICUSPID VALVE/RVSP: Normal Ranges: IVC Diam: 1.30 cm PULMONIC VALVE: Normal Ranges: PV Accel Time: 92 msec (>120ms) PV Max Raphael: 0.9 m/s (0.6-0.9m/s) PV Max P.2 mmHg Pulmonary Veins: PulmV A Revs Dur: 100.00 msec PulmV A Revs Raphael: 28.00 cm/s PulmV Clifton Raphael: 59.90 cm/s PulmV S/D Raphael: 0.70 PulmV Sys Raphael: 43.40 cm/s [id number] Cass Fregoso MD Electronically signed on 07/10/2020 at 4:13:01 PM Final Echocardiogram [Jul 10 2020 4:13PM] Impression: Normal flow pattern without evidence of hemodynamically relevant stenosis in the visualized portions of the carotid circulation as described above. The velocity criteria are extrapolated from diameter data as defined by the Society of Radiologists in Ultrasound Consensus Conference Radiology 2003; 229;340-346. Ultrasound Carotid Bilateral Duplex [Jul 10 2020 10:34AM] Impression: 1. No acute intracranial process including ischemia, hemorrhage, or mass. 2. There are few scattered foci of T2 hyperintensity within the bilateral cerebral hemispheric white matter which are slightly greater than expected for patient's age and may be sequela of chronic small vessel ischemic changes. Other etiologies such as demyelinating lesions are also a possibility. Correlate clinically. 3. 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 4. No evidence of traumatic injury to the cervical spine. No striking degenerative changes of the cervical spine, noting that evaluation is somewhat degraded due to patient motion. MRI Cervical without Contrast [Jul 10 2020 7:35AM] Impression: 1. No acute intracranial process including ischemia, hemorrhage, or mass. 2. There are few scattered foci of T2 hyperintensity within the bilateral cerebral hemispheric white matter which are slightly greater than expected for patient's age and may be sequela of chronic small vessel ischemic changes. Other etiologies such as demyelinating lesions are also a possibility. Correlate clinically. 3. 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 4. No evidence of traumatic injury to the cervical spine. No striking degenerative changes of the cervical spine, noting that evaluation is somewhat degraded due to patient motion. MRI Brain without Contrast [Jul 10 2020 7:35AM] Impression: [No acute intracranial process including ischemia, hemorrhage, or mass. Unremarkable cervical MRI.] UNSIGNED REPOR MRI Brain without Contrast [Jul 10 2020 6:16AM] Impression: [No acute intracranial process including ischemia, hemorrhage, or mass. Unremarkable cervical MRI.] UNSIGNED REPOR MRI Cervical without Contrast [Jul 10 2020 6:16AM] Impression: Normal CT angiography of the head and neck. CT Brain Attack Angio Neck with Contrast and Post Proc [Jul 10 2020 4:05AM] Impression: Normal CT angiography of the head and neck. CT Brain Attack Angio Head with Contrast and Post Proc [Jul 10 2020 4:05AM] Impression: Unremarkable CT angiogram of the head and neck. UNSIGNED REPOR CT Brain Attack Angio Head with Contrast and Post Proc [Jul 10 2020 3:57AM] Impression: No evidence of acute intracranial abnormality. CT Head without Contrast [Jul 10 2020 3:14AM] Impression: No acute intracranial process or calvarial fracture. UNSIGNED REPOR CT Head without Contrast [Jul 10 2020 2:43AM] Impression: No evidence of acute abnormality in the chest, abdomen, or pelvis. Hepatosplenomegaly. Small nonobstructing left renal calculi measuring between 1 and 3 mm. No evidence of acute fracture or malalignment involving the thoracic or lumbar spine. Additional findings as discussed above. CT Chest Abdomen Pelvis without Contrast [Jul 10 2020 12:39AM] Impression: No evidence of acute abnormality in the chest, abdomen, or pelvis. Hepatosplenomegaly. Small nonobstructing left renal calculi measuring between 1 and 3 mm. No evidence of acute fracture or malalignment involving the thoracic or lumbar spine. Additional findings as discussed above. CT L Spine without Contrast [Jul 10 2020 12:39AM] Impression: No evidence of acute abnormality in the chest, abdomen, or pelvis. Hepatosplenomegaly. Small nonobstructing left renal calculi measuring between 1 and 3 mm. No evidence of acute fracture or malalignment involving the thoracic or lumbar spine. Additional findings as discussed above. CT T Spine without Contrast [Jul 10 2020 12:39AM] Impression: [No acute traumatic injury identified within the thorax, abdomen, or pelvis within the limitations of this noncontrast study. Hepatosplenomegaly. Few punctate nonobstructive renal calculi bilaterally. No hydroureteronephrosis.] UNSIGNED REPOR CT Chest Abdomen Pelvis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 above: Performed By: #### L [id number] #### [facility] (DEFAULT) [address] [address] Lymphocytes/100 WBC (Bld) 37.8 % Normal [facility] Comment on above: Performed By: #### L [id number] #### [facility] (DEFAULT) [address] [place] [address]256 MCV (RBC) [Entitic vol] 83.3 fL Normal 79.6-97.7 [facility] Comment on above: Performed By: #### L [id number] #### [facility] (DEFAULT) [address] [address] Mean Cell Hgb 27.1 pg Normal 25.9-33.9 [facility] Comment on above: Performed By: #### L [id number] #### [facility] (DEFAULT) [address] [address] Mean Cell Hgb Conc 32.5 g/dL Normal 31.4-35.9 [facility] Comment on above: Performed By: #### L [id number] #### [facility] (DEFAULT) [address] [address] Monocytes (Bld) [#/Vol] 0.41 10*3/uL Normal 0.22-0.87 [facility] Comment on above: Performed By: #### L AB980 #### [facility] (DEFAULT) [address] [address] Monocytes/100 WBC (Bld) 6.2 % Normal [facility] Comment on above: Performed By: #### L [id number] #### [facility] (DEFAULT) [address] [address] Nucleated RBC 0.0 /100 WBC Normal <=0.2 [facility] Comment on above: Performed By: #### L [id number] #### [facility] (DEFAULT) [address] [address] Platelet mean volume (Bld) [Entitic vol] 10.5 fL Normal 8.5-12.2 [facility] Comment on above: Performed By: #### L [id number] #### [facility] (DEFAULT) [address] [place] [address] Platelets (Bld) [#/Vol] 285 10*3/uL Normal 150-393 [facility] Comment on above: Performed By: #### L AB980 #### [facility] (DEFAULT) [address] [place] [address] 66872 RBC (Bld) [#/Vol] 5.28 10*6/uL High 3.91-5.04 [facility] Comment on above: Performed By: #### L AB980 #### [facility] (DEFAULT) [address] [place] [address] 86376 RBC Distribution 14.3 % Normal 10.8-14.9 [facility] Comment on above: Performed By: #### L [id number] #### [facility] (DEFAULT) [address] [address] Segs + Bands Auto 46.7 % Normal [facility] Comment on above: Performed By: #### L [id number] #### [facility] (DEFAULT) [address] [place] [address]90 Segs + Bands,Absolute Auto 3.09 K/uL Normal 1.64-7.28 [facility] Comment on above: Performed By: #### L [id number] #### [facility] (DEFAULT) [address] [place] [address]49 WBC (Bld) [#/Vol] 6.61 10*3/uL Normal 3.99-11.19 [facility] Comment on above: Performed By: #### L [id number] #### [facility] (DEFAULT) [address] [address] CHM 7 - EDon 06-11-2020 Anion gap [Moles/Vol] 13 mmol/L Normal 7-17 [facility] Comment on above: Order Comment: Lipem ic Sample - Cleared by ultra centrifugation Performed By: #### F IB #### [facility] (DEFAULT) [address] [place] [address] 80008 Chloride [Moles/Vol] 105 mmol/L Normal 98-108 [facility] Comment on above: Order Comment: Lipem ic Sample - Cleared by ultra centrifugation Performed By: #### F IB #### [facility] (DEFAULT) [address] [place] [address] 88875 CO2 [Moles/Vol] 20 mmol/L Low 22-30 [facility] Comment on above: Order Comment: Lipem ic Sample - Cleared by ultra centrifugation Performed By: #### F IB #### [facility] (DEFAULT) [address] [place] [address] 10786 Creatinine [Mass/Vol] 0.82 mg/dL Normal 0.50-1.20 [facility] Comment on above: Order Comment: Lipem ic Sample - Cleared by ultra centrifugation Performed By: #### F IB #### [facility] (DEFAULT) [address] [place] [address]6417 EST GFR, >=60 Normal >=60 [facility] Comment on above: Order Comment: Lipem ic Sample - Cleared by ultra centrifugation Performed By: #### F IB #### [facility] (DEFAULT) [address] [place] [address] 91440 EST GFR,Non >=60 Normal >=60 [facility] Comment on above: Order Comment: Lipem ic Sample - Cleared by ultra centrifugation Performed By: #### F IB #### [facility] (DEFAULT) [address] [place] [address]1845 Glucose [Mass/Vol] 239 mg/dL High 70-99 [facility] Comment on above: Order Comment: Lipem ic Sample - Cleared by ultra centrifugation Performed By: #### F IB #### [facility] (DEFAULT) [address] [place] [address] Osmolality [Osmolality] 291 mosm/kg Normal 278-305 [facility] Comment on above: Order Comment: Lipem ic Sample - Cleared by ultra centrifugation Performed By: #### F IB #### [facility] (DEFAULT) [address] [place] [address]70 Potassium [Moles/Vol] 4.2 mmol/L Normal 3.5-5.0 [facility] Comment on above: Order Comment: Lipem ic Sample - Cleared by ultra centrifugation Result Comment: Slig htly hemolyzed Performed By: #### F IB #### [facility] (DEFAULT) [address] [place] [address]61 Sodium [Moles/Vol] 134 mmol/L Normal 133-143 [facility] Comment on above: Order Comment: Lipem ic Sample - Cleared by ultra centrifugation Performed By: #### F IB #### [facility] (DEFAULT) [address] [place] [address] Urea nitrogen [Mass/Vol] 13 mg/dL Normal 7-22 [facility] Comment on above: Order Comment: Lipem ic Sample - Cleared by ultra centrifugation Performed By: #### F IB #### [facility] (DEFAULT) [address] [place] [address]703 Urea nitrogen/Creatinin e [Mass ratio] 16 mg/mg Normal [facility] Comment on above: Order Comment: Lipem ic Sample - Cleared by ultra centrifugation Performed By: #### F IB #### [facility] (DEFAULT) [address] [place] [address] CEREBRAL PERFUSION ANALYS Sheila 06-11-2020 CT CEREBRAL PERFUSION ANALYSIS EXAM: CT CEREBRAL PERFUSION ANALYSIS, 06/11/2020 19:26 PM COMPARISON: No previous study is available for comparison. CLINICAL INDICATIONS: 39 years Female stroke; TECHNIQUE: A series of axial multislice computerized tomographic images of the brain are obtained following rapid bolus administration of contrast. FINDINGS: Image quality: Poor contrast timing. Arterial input function JOSE RAUL selected: Right MCA. Venous outflow function JOSE RAUL: Internal cerebral vein. (This was manually corrected to the straight sinus at the workstation without change in parametric perfusion maps). Parametric maps: CBF {cerebral blood flow}: Symmetric. CBV {cerebral blood volume}: Symmetric. MTT {mean transit time}: Symmetric. TTD {time to drain}: Symmetric. Tmax: Symmetric. Vascular territory involved: None Tissue involved: None IMPRESSION: Symmetric parametric perfusion maps. I personally viewed and interpreted these images and I have reviewed and approved this report. Normal [facility] CT STROKE HEAD-STROKE ALERT ONLYon 06-11-2020 CT STROKE HEAD-STROKE ALERT ONLY EXAM: CT STROKE HEAD-STROKE ALERT ONLY, 06/11/2020 7:05 PM COMPARISON: None. CLINICAL INDICATIONS: 39 years Female stroke; TECHNIQUE: A series of transaxial computerized tomographic images are obtained from base of skull to vertex without intravenous contrast. Axial whole-head and thin section posterior fossa slices are provided. Reformats: Sagittal and coronal. FINDINGS: There is no abnormal increased or decreased attenuation. There is no mass lesion or midline shift. There is no evidence of hemorrhage or acute infarct. There is no extracerebral collection. Dysgenesis of the corpus callosum, with intact genu and anterior body. Resulting developmental distortion of the ventricular system. No evidence of superimposed hydrocephalus. Posterior fossa is within normal limits. Calvarium and skull base appear intact. IMPRESSION: No acute hemorrhage, mass effect, midline shift or large territory infarct. Findings were discussed with Dr. Sood at 7:14 PM on . I personally viewed and interpreted these images and I have reviewed and approved this report. Normal [facility] HEPATIC FUNCTION PANELon Albumin [Mass/Vol] 3.8 g/dL Normal 3.5-5.0 [facility] Comment on above: Order Comment: Lipem ic Sample - Cleared by ultra centrifugation Performed By: #### F IB #### [facility] (DEFAULT) [address] [address] ALP [Catalytic activity/Vol] 101 U/L Normal 32-126 [facility] Comment on above: Order Comment: Lipem ic Sample - Cleared by ultra centrifugation Performed By: #### F IB #### [facility] (DEFAULT) [address] [address] ALT [Catalytic activity/Vol] 20 U/L Normal 9-48 [facility] Comment on above: Order Comment: Lipem ic Sample - Cleared by ultra centrifugation Result Comment: Slig htly hemolyzed Performed By: #### F IB #### [facility] (DEFAULT) [address] [place] [address] AST [Catalytic activity/Vol] 21 U/L Normal 14-40 [facility] Comment on above: Order Comment: Lipem ic Sample - Cleared by ultra centrifugation Result Comment: Slig htly hemolyzed Performed By: #### F IB #### [facility] (DEFAULT) [address] [place] [address] Bilirubin [Mass/Vol] 0.2 mg/dL Normal <1.5 [facility] Comment on above: Order Comment: Lipem ic Sample - Cleared by ultra centrifugation Result Comment: Slig htly hemolyzed Performed By: #### F IB #### [facility] (DEFAULT) [address] [place] [address] Bilirubin.indirect [Mass/Vol] mg/dL Normal <0.3 [facility] Comment on above: Order Comment: Lipem ic Sample - Cleared by ultra centrifugation Result Comment: Slig htly hemolyzed Performed By: #### F IB #### [facility] (DEFAULT) [address] [place] [address] Protein [Mass/Vol] 6.8 g/dL Normal 6.4-8.3 [facility] Comment on above: Order Comment: Lipem ic Sample - Cleared by ultra centrifugation Performed By: #### F IB #### [facility] (DEFAULT) [address] [place] [address] PTINR-STROKEon 06-11-2020 INR Coag (PPP) [Relative time] 0.9 {INR} Normal 0.9-1.1 [facility] Comment on above: Performed By: #### F IB #### [facility] (DEFAULT) [address] [place] [address] PT Coag (PPP) [Time] 11.8 s Low 11.9-14.2 [facility] Comment on above: Performed By: #### F IB #### [facility] (DEFAULT) [address] [place] [address] PTTon 06-11-2020 aPTT Coag (Bld) [Time] 25.5 s Normal 24.0-34.3 [facility] Comment on above: Performed By: #### F IB #### [facility] (DEFAULT) [address] [address] TOXICOLOGY SCREEN URINE - UD RGon 06-11-2020 Barbiturates Negative Normal Cutoff: 200 ng/mL [facility] Comment on above: Order Comment: For M edical Purposes Only. Nonforensic screen results are considered presumptive and no confirmatory testing will follow. Drugs are detected by immunoassay or Liquid Chromatography Mass Spectrometry (LC-MS/MS). The LC-MS/MS test was developed and its performance characteristics determined by the Toxicology Laboratory at [facility]. It has not been cleared or approved by the FDA. The laboratory is regulated under CLIA as qualified to perform high-complexity testing. This test is used for clinical purposes and should not be regarded as investigational or for research. The following drugs with their lowest level of detection in ng/ml(LOD) are included in this screen: 6 Monoacetylmorphine(300), 7 Aminoflunitrazepam(25), 7 Aminoclonazepam(50),7 hydroxymitragynine (100), Alphahydroxytriazolam(400),Alphahydroxymidazolam (200), Alphahydrozyalprazolam(200), Alprazolam(50), Amitriptyline(50), Amphetamine(250), Atenolol(500),Benzoylecgonine(50), Buprenorphine(100), Bupropion(25),Caffeine(88106),Chlordiazepoxide(50), Chlorpheniramine(100), Chlorpromazine(50), Citalopram(100), Clonazepam(200), Cocaine(25),Codeine(200), Cotinine(500),Desakylflurazepam(50), Desipramine(50), Desmethyldoxepin(100), Dextromethorphan(100), Diazepam(100), Dihydrocodeine(100), Diltazem(50), Diphenhydramine(100),Doxepin(100),EDDP/methadone(100), Ephedrine/Pseudoephedrine(100),Fentanyl(25),Flunitrazepam(100),Fluo xetine(200), Flurazepam(50),Gabapentin(1500), Haloperidol(25), Hydrocodone(100), Hydromorphone(200), Imipramine(50), Ketamine(25), Lidocaine(25),Lorazepam(100), Lysergide(LSD)(25),Maprotiline(200), MDA(250), MDMA(250), Meperidine(50),Midazolam (200),Methadone(50), Methamphetamine(500), Methylphenidate(50), Metoprolol(50), Morphine(200),Nalbuphine(50), Naloxone(200), Norbuprenorphine(300), Nordiazepam(100), Norfentanyl(50),Noroxycodone (100), Norpropoxyphene(50), Nortriptyline(50), Olanzapine(200),Oxazepam(200),Oxycodone(100),Oxymorphone(200), Phencyclidine(PCP)(25), Pheniramine(25), Pregabalin(1500), Promethazine(50), Propoxyphene(100), Propanolol(50), Quetiapine(25), Quinidine(500), Ranitidine(500), Risperidone(100), Sertraline(50),Temazepam(100), Thioridazine(100), Tramadol(50), Trazodone(25), Triazolam(100), Trifluoperazine (100),Venlafaxine(50), Verapamil(100), Zolpidem(200) Performed By: #### U DRG #### [facility] (DEFAULT) [address] [place] [address] Cannabinoids Screen Ql (U) Negative Normal Cutoff: 50 ng/mL [facility] Comment on above: Order Comment: For M edical Purposes Only. Nonforensic screen results are considered presumptive and no confirmatory testing will follow. Drugs are detected by immunoassay or Liquid Chromatography Mass Spectrometry (LC-MS/MS). The LC-MS/MS test was developed and its performance characteristics determined by the Toxicology Laboratory at [facility]. It has not been cleared or approved by the FDA. The laboratory is regulated under CLIA as qualified to perform high-complexity testing. This test is used for clinical purposes and should not be regarded as investigational or for research. The following drugs with their lowest level of detection in ng/ml(LOD) are included in this screen: 6 Monoacetylmorphine(300), 7 Aminoflunitrazepam(25), 7 Aminoclonazepam(50),7 hydroxymitragynine (100), Alphahydroxytriazolam(400),Alphahydroxymidazolam (200), Alphahydrozyalprazolam(200), Alprazolam(50), Amitriptyline(50), Amphetamine(250), Atenolol(500),Benzoylecgonine(50), Buprenorphine(100), Bupropion(25),Caffeine(52761),Chlordiazepoxide(50), Chlorpheniramine(100), Chlorpromazine(50), Citalopram(100), Clonazepam(200), Cocaine(25),Codeine(200), Cotinine(500),Desakylflurazepam(50), Desipramine(50), Desmethyldoxepin(100), Dextromethorphan(100), Diazepam(100), Dihydrocodeine(100), Diltazem(50), Diphenhydramine(100),Doxepin(100),EDDP/methadone(100), Ephedrine/Pseudoephedrine(100),Fentanyl(25),Flunitrazepam(100),Fluo xetine(200), Flurazepam(50),Gabapentin(1500), Haloperidol(25), Hydrocodone(100), Hydromorphone(200), Imipramine(50), Ketamine(25), Lidocaine(25),Lorazepam(100), Lysergide(LSD)(25),Maprotiline(200), MDA(250), MDMA(250), Meperidine(50),Midazolam (200),Methadone(50), Methamphetamine(500), Methylphenidate(50), Metoprolol(50), Morphine(200),Nalbuphine(50), Naloxone(200), Norbuprenorphine(300), Nordiazepam(100), Norfentanyl(50),Noroxycodone (100), Norpropoxyphene(50), Nortriptyline(50), Olanzapine(200),Oxazepam(200),Oxycodone(100),Oxymorphone(200), Phencyclidine(PCP)(25), Pheniramine(25), Pregabalin(1500), Promethazine(50), Propoxyphene(100), Propanolol(50), Quetiapine(25), Quinidine(500), Ranitidine(500), Risperidone(100), Sertraline(50),Temazepam(100), Thioridazine(100), Tramadol(50), Trazodone(25), Triazolam(100), Trifluoperazine (100),Venlafaxine(50), Verapamil(100), Zolpidem(200) Performed By: #### U DRG #### [facility] (DEFAULT) [address] [place] [address] Drugs Detected Urine Tox Gabapentin Abnormal Negative [facility] Comment on above: Order Comment: For M edical Purposes Only. Nonforensic screen results are considered presumptive and no confirmatory testing will follow. Drugs are detected by immunoassay or Liquid Chromatography Mass Spectrometry (LC-MS/MS). The LC-MS/MS test was developed and its performance characteristics determined by the Toxicology Laboratory at [facility]. It has not been cleared or approved by the FDA. The laboratory is regulated under CLIA as qualified to perform high-complexity testing. This test is used for clinical purposes and should not be regarded as investigational or for research. The following drugs with their lowest level of detection in ng/ml(LOD) are included in this screen: 6 Monoacetylmorphine(300), 7 Aminoflunitrazepam(25), 7 Aminoclonazepam(50),7 hydroxymitragynine (100), Alphahydroxytriazolam(400),Alphahydroxymidazolam (200), Alphahydrozyalprazolam(200), Alprazolam(50), Amitriptyline(50), Amphetamine(250), Atenolol(500),Benzoylecgonine(50), Buprenorphine(100), Bupropion(25),Caffeine(86883),Chlordiazepoxide(50), Chlorpheniramine(100), Chlorpromazine(50), Citalopram(100), Clonazepam(200), Cocaine(25),Codeine(200), Cotinine(500),Desakylflurazepam(50), Desipramine(50), Desmethyldoxepin(100), Dextromethorphan(100), Diazepam(100), Dihydrocodeine(100), Diltazem(50), Diphenhydramine(100),Doxepin(100),EDDP/methadone(100), Ephedrine/Pseudoephedrine(100),Fentanyl(25),Flunitrazepam(100),Fluo xetine(200), Flurazepam(50),Gabapentin(1500), Haloperidol(25), Hydrocodone(100), Hydromorphone(200), Imipramine(50), Ketamine(25), Lidocaine(25),Lorazepam(100), Lysergide(LSD)(25),Maprotiline(200), MDA(250), MDMA(250), Meperidine(50),Midazolam (200),Methadone(50), Methamphetamine(500), Methylphenidate(50), Metoprolol(50), Morphine(200),Nalbuphine(50), Naloxone(200), Norbuprenorphine(300), Nordiazepam(100), Norfentanyl(50),Noroxycodone (100), Norpropoxyphene(50), Nortriptyline(50), Olanzapine(200),Oxazepam(200),Oxycodone(100),Oxymorphone(200), Phencyclidine(PCP)(25), Pheniramine(25), Pregabalin(1500), Promethazine(50), Propoxyphene(100), Propanolol(50), Quetiapine(25), Quinidine(500), Ranitidine(500), Risperidone(100), Sertraline(50),Temazepam(100), Thioridazine(100), Tramadol(50), Trazodone(25), Triazolam(100), Trifluoperazine (100),Venlafaxine(50), Verapamil(100), Zolpidem(200) Performed By: #### U DRG #### [facility] (DEFAULT) [address] [address] URINALYSIS REFLEX TO CULTURE PERFORMABLEon 06-11-2020 Appearance (U) Clear Normal Clear [facility] Comment on above: Performed By: #### U [id number] #### [facility] (DEFAULT) [address] [address] Bacteria TRACE Abnormal ABSENT [facility] Comment on above: Performed By: #### U [id number] #### [facility] (DEFAULT) [address] [address] Blood Urine Negative Normal Negative [facility] Comment on above: Performed By: #### U [id number] #### [facility] (DEFAULT) [address] [place] [address] Color (U) Yellow Normal Yellow [facility] Comment on above: Performed By: #### U [id number] #### [facility] (DEFAULT) [address] [address] Glucose Ql (U) >=1000 mg/dL Abnormal Negative [facility] Comment on above: Performed By: #### U [id number] #### [facility] (DEFAULT) [address] [address] Ketones Ql (U) Negative Normal Negative [facility] Comment on above: Performed By: #### U [id number] #### [facility] (DEFAULT) [address] [place] [address] Leukocyte esterase Test strip Ql (U) Negative Normal Negative [facility] Comment on above: Performed By: #### U [id number] #### [facility] (DEFAULT) [address] [place] [address] Nitrites Urine Negative Normal Negative [facility] Comment on above: Performed By: #### U [id number] #### [facility] (DEFAULT) [address] [place] [address] pH (U) 6.5 [pH] Normal 5.0-7.0 [facility] Comment on above: Performed By: #### U [id number] #### [facility] (DEFAULT) [address] [place] [address] Protein Urine Negative Normal Negative [facility] Comment on above: Performed By: #### U [id number] #### [facility] (DEFAULT) [address] [place] [address] RBC Urine 0-2 Normal 0-2 [facility] Comment on above: Performed By: #### U [id number] #### [facility] (DEFAULT) [address] [address] Specific [place] Urine 1.010 Normal >1.001-<1.035 [facility] Comment on above: Performed By: #### U [id number] #### [facility] (DEFAULT) [address] [place] [address] Squamous/Epithelia l Cells 2-5/hpf = 2+ Normal 1/hpf = 1+, 2-5/hpf = 2+, 0/hpf = 0+, ABSENT [facility] Comment on above: Performed By: #### U [id number] #### [facility] (DEFAULT) [address] [place] [address] Urobilinogen Urine 0.2 E.U./dL Normal 0.2-1.0 [facility] Comment on above: Performed By: #### U [id number] #### [facility] (DEFAULT) [address] [place] [address] WBC Urine 0-5 Normal 0-5 [facility] Comment on above: Performed By: #### U [id number] #### U [facility] (DEFAULT) [address] [place] [address] Yeast/Fungi PRESENT Abnormal ABSENT [facility] Comment on above: Performed By: #### U [id number] #### [facility] (DEFAULT) [address] [place] [address] CBC Auto Differentialon 04-11 Absolute Baso # 0.0 10*3/uL 0 - 0.2 10*3/uL [facility], [place] Absolute Neut # 1.9 10*3/uL 1.8 - 7 10*3/uL [facility], [place] EKG 12 Leadon 05-09-2020 [facility] Test Date: 2020-05-08 Pat Name: Delmy Buchanan Department: 1A3W Room: [facility] Gender: F 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 : 1980 Requested By: PJ BOSCH Order Number: [id number] Reading : Michael Langley Measurements Intervals Gilbert Rate: 67 P: 25 DE: 135 QRS: -2 QRSD: 84 T: 4 QT: 413 QTc: 436 Interpretive Statements Sinus rhythm Low voltage, precordial leads Borderline T abnormalities, inferior leads Electronically Signed On 05-09-2020 8:02:41 EST by Michael Langley [facility], [place] Abdullahi, [facility] Incoming Cardiology Results From [facility] - 05/09/2020 8:03 AM EST [facility] Test Date: 2020-05-08 Pat Name: Delmy Eubanksdrew Department: 1A3W Room: 1339 Gender: F 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 : 1980 Requested By: PJ BOSCH Order Number: [id number] Reading : Michael Langley Measurements Intervals Gilbert Rate: 67 P: 25 DE: 135 QRS: -2 QRSD: 84 T: 4 QT: 413 QTc: 436 Interpretive Statements Sinus rhythm Low voltage, precordial leads Borderline T abnormalities, inferior leads Electronically Signed On 05-09-2020 8:02:41 EST by Michael Langley [place], [place] Glucose,Bedsideon 05-09-2020 Glucose [Mass/Vol] 179 mg/dL High 70-100 [facility] Comment on above: Result Comment: Test performed by glucose meter. Results may be 10%-15% lower than serum/plasma values. (CLIA ID [id number]) Performed By: #### B GLU #### [facility] [address] [place], [place] Glucose [Mass/Vol] 230 mg/dL High 70-100 [place], [place] Comment on above: Test performed by gl ucose meter. Results may be 10%-15% lower than serum/plasma values. (CLIA ID [id number]) Result Comment: Test performed by glucose meter. Results may be 10%-15% lower than serum/plasma values. (CLIA ID [id number]) Performed By: #### B GLU #### [place] [address] [address] [place], [place] Hemogram w/ Autodiffon 05-09 Abs Baso Cnt 0.0 10*3/uL Normal 0.0-0.2 [facility] Comment on above: Performed By: #### B GLU #### [place] [address] [address] [place], [place] Abs Neutrophile Cnt 1.9 10*3/uL Normal 1.8-7.0 [facility] Comment on above: Performed By: #### B GLU #### [place] [address] [address] [place], [place] Basophils/100 WBC (Bld) 1.0 % Normal 0.0-2.0 [place] Comment on above: Performed By: #### B GLU #### [place] [address] [address] [place], [place] Eosinophils (Bld) [#/Vol] 0.4 10*3/uL Normal 0.0-0.5 [place] Comment on above: Performed By: #### B GLU #### [place] [address] [address] [place], [place] Eosinophils/100 WBC (Bld) 8.7 % High 1.0-6.0 [place] Comment on above: Performed By: #### B GLU #### [place] [address] [address] [place], [place] Erythrocyte distribution width (RBC) [Ratio] 15.7 % High 11.5-14.5 [place] Comment on above: Performed By: #### B GLU #### [place] [address] [address] [place], [place] Granulocytes/100 WBC (Bld) 42.9 % Normal 40.0-80.0 [place] Comment on above: Performed By: #### B GLU #### [place] [address] [address] [place], [place] Hematocrit (Bld) [Volume fraction] 38.6 % Normal 35.0-47.0 [place] Comment on above: Performed By: #### B GLU #### [place] [address] [address] [place], [place] Hemoglobin (Bld) [Mass/Vol] 12.7 g/dL Normal 11.7-16.0 [place] Comment on above: Performed By: #### B GLU #### [place] [address] [address] [place], [place] Lymphocytes (Bld) [#/Vol] 1.8 10*3/uL Normal 1.0-4.3 [place] Comment on above: Performed By: #### B GLU #### [place] [address] [address] [place], [place] Lymphocytes/100 WBC (Bld) 41.0 % High 20.0-40.0 [place] Comment on above: Performed By: #### B GLU #### [place] [address] [place], [place] MCH (RBC) [Entitic mass] 27.2 pg Normal 26.0-34.0 [place] Comment on above: Performed By: #### B GLU #### [place] [address] [address] [place], [place] MCHC (RBC) [Mass/Vol] 32.8 % Normal 32.0-36.0 [place] Comment on above: Performed By: #### B GLU #### [place] [address] [place], [place] MCV (RBC) [Entitic vol] 82.9 fL Normal 79.0-98.0 [place] Comment on above: Performed By: #### B GLU #### [place] [address] [address] [place], [place] Monocytes (Bld) [#/Vol] 0.3 10*3/uL Normal 0.0-0.8 [place] Comment on above: Performed By: #### B GLU #### [place] [address] [address] [place], [place] Monocytes/100 WBC (Bld) 6.4 % Normal 2.0-10.0 [place] Comment on above: Performed By: #### B GLU #### [place] [address] [address] [place], [place] Platelet mean volume (Bld) [Entitic vol] 8.4 fL Normal 7.4-10.4 [place] Comment on above: Performed By: #### B GLU #### [place] [address] [address] [place], [place] Platelets (Bld) [#/Vol] 181 10*3/uL Normal 140-440 [place] Comment on above: Performed By: #### B GLU #### [place] [address] [address] [place], [place] RBC (Bld) [#/Vol] 4.66 10*6/uL Normal 3.80-5.20 [place] Comment on above: Performed By: #### B GLU #### [place] [address] [place] [address] WBC (Bld) [#/Vol] 4.5 10*3/uL Normal 3.6-10.7 [place] Comment on above: Performed By: #### B GLU #### [facility] [address] [place], [place] Otheron 05-09-2020 Interpretation and review of laboratory results Abnormal [place] Test Performed by [facility], [facility] [place] [address] [place], [place] POCT Glucoseon 05-09-2020 Glucose [Mass/Vol] 179 mg/dL High 70 - 100 mg/dL [place] Comment on above: Test performed by gl ucose meter. Results may be 10%-15% lower than serum/plasma values. (CLIA ID [id number]) Interpretation and review of laboratory results Abnormal [place] Test Performed by [facility], [facility] [place] [address] [place], [place] Comp Panel with Mg Reflexon 05-08-2020 ALT [Catalytic activity/Vol] 27 U/L Normal 0-34 [facility] Comment on above: Result Comment: The ALT test is performed by an updated assay method. Please note that the reference intervals have been changed and are now sex specific. Performed By: #### C MP3M, LIPD2, HA1C2 #### [place] [address] [address] [place], [place] Calcium [Mass/Vol] 7.2 mg/dL Low 8.4-10.4 [facility] Comment on above: Performed By: #### C MP3M, LIPD2, HA1C2 #### [place] [address] [place], [place] ALP [Catalytic activity/Vol] 53 U/L Normal 38-126 [facility] Comment on above: Result Comment: Slightly hemolysed, interpret with caution. Performed By: #### C MP3M, LIPD2, HA1C2 #### [place] [address] [place], [place] Anion gap [Moles/Vol] 7 Normal [facility] Comment on above: Performed By: #### C MP3M, LIPD2, HA1C2 #### [place] [address] [address] [place], [place] AST [Catalytic activity/Vol] 34 U/L Normal 15-46 [facility] Comment on above: Result Comment: Slightly hemolysed, interpret with caution. Performed By: #### C MP3M, LIPD2, HA1C2 #### [facility] [address] [place], [place] Bilirubin [Mass/Vol] 0.6 mg/dL Normal 0.2-1.3 [facility] Comment on above: Performed By: #### C MP3M, LIPD2, HA1C2 #### [facility] [address] [place] CO2 [Moles/Vol] 19 mmol/L Low 22-30 [facility] Comment on above: Performed By: #### C MP3M, LIPD2, HA1C2 #### [place] [address] [place], [place] Creatinine [Mass/Vol] 0.66 mg/dL Normal 0.52-1.25 [facility] Comment on above: Performed By: #### C MP3M, LIPD2, HA1C2 #### [facility] [place] GFR/1.73 sq M predicted among blacks MDRD (S/P/Bld) [Vol rate/Area] mL/min/{1.73_m2} Normal >60 [facility] Comment on above: Performed By: #### C MP3M, LIPD2, HA1C2 #### [facility] [address] [place], [place] GFR/1.73 sq M predicted among non-blacks MDRD (S/P/Bld) [Vol rate/Area] mL/min/{1.73_m2} Normal >60 [facility] Comment on above: Result Comment: KDIG O guidelines provide the following GFR categories: Stage GFR(ml/min/1.73 m2) Terms G1 >=90 Normal or high G2 60-89 Mildly decreased* G3a 45-59 Mildly to moderately decreased G3b 30-44 Moderately to severely decreased G4 15-29 Severely decreased G5 <15 Kidney failure *Relative to young adult level. In the absence of evidence of kidney damage, neither GFR category G1 nor G2 fulfill the criteria for CKD. The CKD-EPI equation is validated in individuals 18 years of age and older. Currently the best equation for estimating glomerular filtration rate (GFR) from serum creatinine in children is the Bedside Maldonado equation. It is less accurate in patients with extremes of muscle mass, restriction of dietary protein, ingestion of creatine, extra-renal metabolism of creatinine, or treatment with medications that affect renal tubular creatinine secretion. Performed By: #### C MP3M, LIPD2, HA1C2 #### [facility] [address] [place], [place] Glucose [Mass/Vol] 130 mg/dL High 70-100 [facility] Comment on above: Performed By: #### C MP3M, LIPD2, HA1C2 #### [place] [address] [place], [place] Protein [Mass/Vol] 5.7 g/dL Low 6.3-8.2 [facility] Comment on above: Result Comment: Slightly hemolysed, interpret with caution. Performed By: #### C MP3M, LIPD2, HA1C2 #### [place] [address] [place], [place] Urea nitrogen [Mass/Vol] 17 mg/dL Normal 7-20 [facility] Comment on above: Performed By: #### C MP3M, LIPD2, HA1C2 #### [place] [address] [place], [place] Potassium [Moles/Vol] 3.7 mmol/L Normal 3.5-5.1 [facility] Comment on above: Result Comment: Slightly hemolysed, interpret with caution. Performed By: #### C MP3M, LIPD2, HA1C2 #### [facility] [address] [place], [place] Albumin [Mass/Vol] 3.0 g/dL Low 3.5-5.0 [facility] Comment on above: Result Comment: Slightly hemolysed, interpret with caution. Performed By: #### C MP3M, LIPD2, HA1C2 #### [facility] [address] [place] [address] Chloride [Moles/Vol] 113 mmol/L High 98-107 [facility] Comment on above: Performed By: #### C MP3M, LIPD2, HA1C2 #### [facility] [address] [place], [place] Sodium [Moles/Vol] 139 mmol/L Normal 135-145 [facility] Comment on above: Performed By: #### C MP3M, LIPD2, HA1C2 #### [facility] [address] [place], [place] Comprehensive Metabolic Pane l w/ Reflex to MGon 05-08-2020 Albumin [Mass/Vol] 3.0 g/dL Low 3.5 - 5 g/dL [place], [place] Comment on above: Slightly hemolysed, interpret with caution. ALP [Catalytic activity/Vol] 53 U/L 38 - 126 U/L [place] Comment on above: Slightly hemolysed, interpret with caution. ALT [Catalytic activity/Vol] 27 U/L 0 - 34 U/L [place] Comment on above: The ALT test is perf ormed by an updated assay method. Please note that the reference intervals have been changed and are now sex specific. Anion gap [Moles/Vol] 7 mmol/L [place] AST [Catalytic activity/Vol] 34 U/L 15 - 46 U/L [place] Comment on above: Slightly hemolysed, interpret with caution. Bilirubin Ql (U) 0.6 mg/dL 0.2 - 1.3 mg/dL [place] Calcium [Mass/Vol] 7.2 mg/dL Low 8.4 - 10. 4 mg/dL [place] Chloride [Moles/Vol] 113 mmol/L High 98 - 107 mmol/L [place] CO2 [Moles/Vol] 19 mmol/L Low 22 - 30 mmol/L [place] Creatinine [Mass/Vol] 0.66 mg/dL 0.52 - 1.25 mg/dL [place] EGFR IF NonAfrican [place] >90.0 >60 mL/min [place] Comment on above: KDIGO guidelines pro vide the following GFR categories: Stage GFR(ml/min/1.73 m2) Terms G1 >=90 Normal or high G2 60-89 Mildly decreased* G3a 45-59 Mildly to moderately decreased G3b 30-44 Moderately to severely decreased G4 15-29 Severely decreased G5 <15 Kidney failure *Relative to young adult level. In the absence of evidence of kidney damage, neither GFR category G1 nor G2 fulfill the criteria for CKD. The CKD-EPI equation is validated in individuals 18 years of age and older. Currently the best equation for estimating glomerular filtration rate (GFR) from serum creatinine in children is the Bedside Maldonado equation. It is less accurate in patients with extremes of muscle mass, restriction of dietary protein, ingestion of creatine, extra-renal metabolism of creatinine, or treatment with medications that affect renal tubular creatinine secretion. GFR/1.73 sq M predicted among blacks MDRD (S/P/Bld) [Vol rate/Area] mL/min/{1.73_m2} >60 mL/min [place] Glucose [Mass/Vol] 130 mg/dL High 70 - 100 mg/dL [place] Potassium [Moles/Vol] 3.7 mmol/L 3.5 - 5.1 mmol/L [place] Comment on above: Slightly hemolysed, interpret with caution. Protein [Mass/Vol] 5.7 g/dL Low 6.3 - 8.2 g/dL [place] Comment on above: Slightly hemolysed, interpret with caution. Sodium [Moles/Vol] 139 mmol/L 135 - 145 mmol/L [place] Urea nitrogen [Mass/Vol] 17 mg/dL 7 - 20 mg/dL [place] Glucose,Bedsideon 05-08-2020 Glucose [Mass/Vol] 263 mg/dL High 70-100 [facility] Comment on above: Result Comment: Test performed by glucose meter. Results may be 10%-15% lower than serum/plasma values. (CLIA ID [id number]) Performed By: #### B GLU #### [facility] [address] [place] [address] Glucose [Mass/Vol] 307 mg/dL High 70-100 [facility] Comment on above: Result Comment: Test performed by glucose meter. Results may be 10%-15% lower than serum/plasma values. (CLIA ID [id number]) Performed By: #### B GLU #### [facility] [address] [place] [address] Glucose [Mass/Vol] 126 mg/dL High 70-100 [facility] Comment on above: Result Comment: Test performed by glucose meter. Results may be 10%-15% lower than serum/plasma values. (CLIA ID [id number]) Performed By: #### B GLU #### [facility] [address] [place] [address] Glucose [Mass/Vol] 139 mg/dL High 70-100 [facility] Comment on above: Result Comment: Test performed by glucose meter. Results may be 10%-15% lower than serum/plasma values. (CLIA ID [id number]) Performed By: #### B GLU #### [place] [address] [place] [address] Hemoglobin A1Con 05-08-2020 HbA1c (Bld) [Mass fraction] 209 mg/dL Normal [facility] Comment on above: Performed By: #### C MP3M, LIPD2, HA1C2 ####[facility] [id number] [place] [address] HbA1c (Bld) [Mass fraction] 8.9 % High 4.0-6.0 [facility] Comment on above: Result Comment: --Hg bA1C levels may not be accurate in patients who have renal disease, received recent blood transfusions, are anemic, or who have dyshemoglobinemia. Performed By: #### C MP3M, LIPD2, HA1C2 ####[facility] [id number] [place] [address] eAG 209 mg/dL [facility] HbA1c (Bld) [Mass fraction] 8.9 % High 4 - 6 % [facility] Comment on above: --HgbA1C levels may not be accurate in patients who have renal disease, received recent blood transfusions, are anemic, or who have dyshemoglobinemia. Interpretation and review of laboratory results Abnormal [facility], [place] Test Performed by [facility], [address] [facility] [place] [address] [place], [place] Lipid Panelon 05-08-2020 Cholesterol in HDL [Mass/Vol] 24 mg/dL Low 40-60 [facility] Comment on above: Performed By: #### C MP3M, LIPD2, HA1C2 ####[facility] [place] [address] Cholesterol.total/ Cholesterol in HDL [Mass ratio] 6 Normal [facility] Comment on above: Result Comment: Ref Range: < 3 Low Risk for CHD 3-6 Mod Risk for CHD > 6 High Risk for CHD Performed By: #### C MP3M, LIPD2, HA1C2 ####[facility] [id number] [place] [address] Protein [Mass/Vol] 82 mg/dL Normal <100 [facility] Comment on above: Performed By: #### C MP3M, LIPD2, HA1C2 ####[facility] [id number] [place] [address] Cholesterol [Mass/Vol] 154 mg/dL Normal < 200 [facility] Comment on above: Performed By: #### C MP3M, LIPD2, HA1C2 ####[facility] [id number] [place] [address] Triglyceride [Mass/Vol] 241 mg/dL Abnormal <150 [facility] Comment on above: Performed By: #### C MP3M, LIPD2, HA1C2 ####[facility] [id number] [place] [address] Cholesterol [Mass/Vol] 154 mg/dL <200 [place], [place] Cholesterol in HDL [Mass/Vol] 24 mg/dL Low 40 - 60 mg/dL [place] Cholesterol in LDL [Mass/Vol] 82 mg/dL <100 [place] Cholesterol.total/ Cholesterol in HDL [Mass ratio] 6 {ratio} [place] Comment on above: Ref Range: < 3 Low Risk for CHD 3-6 Mod Risk for CHD > 6 High Risk for CHD Triglyceride [Mass/Vol] 241 mg/dL Abnormal <150 [place] MRA HEAD WO CONTRASTon 05-08 Patient Name: DELMY LENTZ [facility] ACCESSION EXAM DATE/TIME PROCEDURE ORDERING PROVIDER [id number] 05/08/2020 18:51 EST MRA Head w/o Contrast MD ARIA, JOHN James. CPT code 68471 Reason For Exam (MRA Head w/o Contrast) headache, RUE weakness Report MRI OF THE BRAIN WITHOUT GADOLINIUM CLINICAL INDICATION: headache, RUE weakness TECHNIQUE: Routine MRI of the brain without IV gadolinium. COMPARISON: MRI brain, July,. FINDINGS: Patient unable to tolerate examination and diffusion, T1 sagittal and FLAIR axial sequences only obtained. Partial agenesis of corpus callosum again noted, with absence of body and splenium. No apparent mass, mass effect, hemorrhage, midline shift or hydrocephalus. No acute infarct seen on diffusion weighted imaging. No pathologic extra-axial fluid collection. No pineal region or sellar masses. No cerebellar tonsillar herniation. IMPRESSION: 1. Limited examination. No acute intracranial findings. 2. Partial agenesis of corpus callosum, unchanged. MRA OF THE BRAIN CLINICAL INDICATION: headache, RUE weakness TECHNIQUE: Routine MRA of the brain without gadolinium. COMPARISON: None. FINDINGS: Normal flow-related enhancement in the distal internal carotid arteries, anterior, middle and posterior cerebral arteries, basilar and bilateral distal vertebral arteries, with right-sided vertebral artery dominance. Right RANGE ECOLOGIST derive(s) major contribution from anterior circulation consistent with persistent origin, an anatomic variant. No aneurysm, significant stenosis or apparent occlusion. [facility] Report IMPRESSION: 1. No intracranial arterial occlusion or significant stenosis. Report Dictated on --- Final --- Dictated: 05/08/2020 7:59 pm Dictating Physician: MD BRITO WENDELL Signed Date and Time: 05/08/2020 8:05 pm Signed by: MD BRITO WENDELL Transcribed Date and Time: 05/08/2020 7:59 [place], [place] [facility], [facility] 8:06 PM EST Patient Name: DELMY BUCHANAN [facility] ACCESSION EXAM DATE/TIME PROCEDURE ORDERING PROVIDER [id number] 05/08/2020 18:51 EST MRA Head w/o Contrast MD ARIA, JOHN Corrales CPT code 27334 Reason For Exam (MRA Head w/o Contrast) headache, RUE weakness Report MRI OF THE BRAIN WITHOUT GADOLINIUM CLINICAL INDICATION: headache, RUE weakness TECHNIQUE: Routine MRI of the brain without IV gadolinium. COMPARISON: MRI brain, July,. FINDINGS: Patient unable to tolerate examination and diffusion, T1 sagittal and FLAIR axial sequences only obtained. Partial agenesis of corpus callosum again noted, with absence of body and splenium. No apparent mass, mass effect, hemorrhage, midline shift or hydrocephalus. No acute infarct seen on diffusion weighted imaging. No pathologic extra-axial fluid collection. No pineal region or sellar masses. No cerebellar tonsillar herniation. IMPRESSION: 1. Limited examination. No acute intracranial findings. 2. Partial agenesis of corpus callosum, unchanged. MRA OF THE BRAIN CLINICAL INDICATION: headache, RUE weakness TECHNIQUE: Routine MRA of the brain without gadolinium. COMPARISON: None. FINDINGS: Normal flow-related enhancement in the distal internal carotid arteries, anterior, middle and posterior cerebral arteries, basilar and bilateral distal vertebral arteries, with right-sided vertebral artery dominance. Right RANGE ECOLOGIST derive(s) major contribution from anterior circulation consistent with persistent origin, an anatomic variant. No aneurysm, significant stenosis or apparent occlusion. [facility] Report IMPRESSION: 1. No intracranial arterial occlusion or significant stenosis. Report Dictated on --- Final --- Dictated: 05/08/2020 7:59 pm Dictating Physician: MD BRITO WENDELL Signed Date and Time: 05/08/2020 8:05 pm Signed by: MD BRITO WENDELL Transcribed Date and Time: 05/08/2020 7:59 [place] MRA Head w/o Contrast 04-11 MRA Head w/o Contrast [id number] ACCESSION EXAM DATE/TIME PROCEDURE ORDERING PROVIDER [id number] 05/08/2020 18:51 EST MRA Head w/o Contrast MD KNAPP MITA S. CPT code 18103 Reason For Exam (MRA Head w/o Contrast) headache, RUE weakness Report MRI OF THE BRAIN WITHOUT GADOLINIUM CLINICAL INDICATION: headache, RUE weakness TECHNIQUE: Routine MRI of the brain without IV gadolinium. COMPARISON: MRI brain, July,. FINDINGS: Patient unable to tolerate examination and diffusion, T1 sagittal and FLAIR axial sequences only obtained. Partial agenesis of corpus callosum again noted, with absence of body and splenium. No apparent mass, mass effect, hemorrhage, midline shift or hydrocephalus. No acute infarct seen on diffusion weighted imaging. No pathologic extra-axial fluid collection. No pineal region or sellar masses. No cerebellar tonsillar herniation. IMPRESSION: 1. Limited examination. No acute intracranial findings. 2. Partial agenesis of corpus callosum, unchanged. MRA OF THE BRAIN CLINICAL INDICATION: headache, RUE weakness TECHNIQUE: Routine MRA of the brain without gadolinium. COMPARISON: None. FINDINGS: Normal flow-related enhancement in the distal internal carotid arteries, anterior, middle and posterior cerebral arteries, basilar and bilateral distal vertebral arteries, with right-sided vertebral artery dominance. Right RANGE ECOLOGIST derive(s) major contribution from anterior circulation consistent with persistent origin, an anatomic variant. No aneurysm, significant stenosis or apparent occlusion. [facility] Report IMPRESSION: 1. No intracranial arterial occlusion or significant stenosis. Report Dictated on Final Dictated: 05/08/2020 7:59 pm Dictating Physician: MD BRITO WENDELL Signed Date and Time: 05/08/2020 8:05 pm Signed by: MD BRITO WENDELL Transcribed Date and Time: 05/08/2020 7:59 Normal [facility] MRI BRAIN [facility] 04-11 Abdullahi, [facility] Incoming Radiology Results From [facility] - 05/08/2020 8:06 PM EST Patient Name: DELMY BUCHANAN [facility] ACCESSION EXAM DATE/TIME PROCEDURE ORDERING PROVIDER [id number] 05/08/2020 18:51 EST MRI Brain w/o Contrast MD ARIA, JOHN S. CPT code 22546 Reason For Exam (MRI Brain w/o Contrast) headache, RUE weakness Report MRI OF THE BRAIN WITHOUT GADOLINIUM CLINICAL INDICATION: headache, RUE weakness TECHNIQUE: Routine MRI of the brain without IV gadolinium. COMPARISON: MRI brain, July,. FINDINGS: Patient unable to tolerate examination and diffusion, T1 sagittal and FLAIR axial sequences only obtained. Partial agenesis of corpus callosum again noted, with absence of body and splenium. No apparent mass, mass effect, hemorrhage, midline shift or hydrocephalus. No acute infarct seen on diffusion weighted imaging. No pathologic extra-axial fluid collection. No pineal region or sellar masses. No cerebellar tonsillar herniation. IMPRESSION: 1. Limited examination. No acute intracranial findings. 2. Partial agenesis of corpus callosum, unchanged. MRA OF THE BRAIN CLINICAL INDICATION: headache, RUE weakness TECHNIQUE: Routine MRA of the brain without gadolinium. COMPARISON: None. FINDINGS: Normal flow-related enhancement in the distal internal carotid arteries, anterior, middle and posterior cerebral arteries, basilar and bilateral distal vertebral arteries, with right-sided vertebral artery dominance. Right RANGE ECOLOGIST derive(s) major contribution from anterior circulation consistent with persistent origin, an anatomic variant. No aneurysm, significant stenosis or apparent occlusion. [facility] Report IMPRESSION: 1. No intracranial arterial occlusion or significant stenosis. Report Dictated on --- Final --- Dictated: 05/08/2020 7:59 pm Dictating Physician: MD BRITO WENDELL Signed Date and Time: 05/08/2020 8:05 pm Signed by: MD BRITO WENDELL Transcribed Date and Time: 05/08/2020 7:59 [place] Patient Name: [id number] ACCESSION EXAM DATE/TIME PROCEDURE ORDERING PROVIDER [id number] 05/08/2020 18:51 EST MRI Brain w/o Contrast MD ARIA, JOHN S. CPT code 88579 Reason For Exam (MRI Brain w/o Contrast) headache, RUE weakness Report MRI OF THE BRAIN WITHOUT GADOLINIUM CLINICAL INDICATION: headache, RUE weakness TECHNIQUE: Routine MRI of the brain without IV gadolinium. COMPARISON: MRI brain, July,. FINDINGS: Patient unable to tolerate examination and diffusion, T1 sagittal and FLAIR axial sequences only obtained. Partial agenesis of corpus callosum again noted, with absence of body and splenium. No apparent mass, mass effect, hemorrhage, midline shift or hydrocephalus. No acute infarct seen on diffusion weighted imaging. No pathologic extra-axial fluid collection. No pineal region or sellar masses. No cerebellar tonsillar herniation. IMPRESSION: 1. Limited examination. No acute intracranial findings. 2. Partial agenesis of corpus callosum, unchanged. MRA OF THE BRAIN CLINICAL INDICATION: headache, RUE weakness TECHNIQUE: Routine MRA of the brain without gadolinium. COMPARISON: None. FINDINGS: Normal flow-related enhancement in the distal internal carotid arteries, anterior, middle and posterior cerebral arteries, basilar and bilateral distal vertebral arteries, with right-sided vertebral artery dominance. Right RANGE ECOLOGIST derive(s) major contribution from anterior circulation consistent with persistent origin, an anatomic variant. No aneurysm, significant stenosis or apparent occlusion. [facility] Report IMPRESSION: 1. No intracranial arterial occlusion or significant stenosis. Report Dictated on --- Final --- Dictated: 05/08/2020 7:59 pm Dictating Physician: MD BRITO WENDELL Signed Date and Time: 05/08/2020 8:05 pm Signed by: MD BRITO WENDELL Transcribed Date and Time: 05/08/2020 7:59 [place] MRI Brain w/o Contraston MRI Brain w/o Contrast Patient Name: DELMY BUCHANAN [facility] ACCESSION EXAM DATE/TIME PROCEDURE ORDERING PROVIDER [id number] 05/08/2020 18:51 EST MRI Brain w/o Contrast MD ARIA, JOHN Corrales CPT code 06135 Reason For Exam (MRI Brain w/o Contrast) headache, RUE weakness Report MRI OF THE BRAIN WITHOUT GADOLINIUM CLINICAL INDICATION: headache, RUE weakness TECHNIQUE: Routine MRI of the brain without IV gadolinium. COMPARISON: MRI brain, July,. FINDINGS: Patient unable to tolerate examination and diffusion, T1 sagittal and FLAIR axial sequences only obtained. Partial agenesis of corpus callosum again noted, with absence of body and splenium. No apparent mass, mass effect, hemorrhage, midline shift or hydrocephalus. No acute infarct seen on diffusion weighted imaging. No pathologic extra-axial fluid collection. No pineal region or sellar masses. No cerebellar tonsillar herniation. IMPRESSION: 1. Limited examination. No acute intracranial findings. 2. Partial agenesis of corpus callosum, unchanged. MRA OF THE BRAIN CLINICAL INDICATION: headache, RUE weakness TECHNIQUE: Routine MRA of the brain without gadolinium. COMPARISON: None. FINDINGS: Normal flow-related enhancement in the distal internal carotid arteries, anterior, middle and posterior cerebral arteries, basilar and bilateral distal vertebral arteries, with right-sided vertebral artery dominance. Right RANGE ECOLOGIST derive(s) major contribution from anterior circulation consistent with persistent origin, an anatomic variant. No aneurysm, significant stenosis or apparent occlusion. [facility] Report IMPRESSION: 1. No intracranial arterial occlusion or significant stenosis. Report Dictated on Final Dictated: 05/08/2020 7:59 pm Dictating Physician: MD BRITO WENDELL Signed Date and Time: 05/08/2020 8:05 pm Signed by: MD BRITO WENDELL Transcribed Date and Time: 05/08/2020 7:59 Normal [facility] Otheron 05-08-2020 Interpretation and review of laboratory results Abnormal [facility] Test Performed by [facility], [address] [place] [address] [employer] [place] POCT Glucoseon 05-08-2020 Glucose [Mass/Vol] 263 mg/dL High 70 - 100 mg/dL [facility] [place] [place] Comment on above: Test performed by gl ucose meter. Results may be 10%-15% lower than serum/plasma values. (CLIA ID [id number]) Interpretation and review of laboratory results Abnormal [employer] [place] Test Performed by [employer] [facility], [address] [place] [address] [employer] [place] Glucose [Mass/Vol] 307 mg/dL High 70 - 100 mg/dL [facility] [place] [place] Comment on above: Test performed by gl ucose meter. Results may be 10%-15% lower than serum/plasma values. (CLIA ID [id number]) Interpretation and review of laboratory results Abnormal [employer] [facility] Test Performed by [employer] [facility], [address] [place] [address] [employer] [place] Glucose [Mass/Vol] 126 mg/dL High 70 - 100 mg/dL [facility] [place] [place] Comment on above: Test performed by gl ucose meter. Results may be 10%-15% lower than serum/plasma values. (CLIA ID [id number]) Interpretation and review of laboratory results Abnormal [facility] Test Performed by [facility], [address] [place] [address] [employer] [facility] Glucose [Mass/Vol] 139 mg/dL High 70 - 100 mg/dL [employer] [facility] Comment on above: Test performed by gl ucose meter. Results may be 10%-15% lower than serum/plasma values. (CLIA ID [id number]) Interpretation and review of laboratory results Abnormal [facility] Test Performed by [employer], [address] [place] [address] [employer] ANES POSTPROC EVALon 020 ANES POSTPROC EVAL HNO ID: [id number] Author: Rd Veronica MD Service: ? Author Type: Anesthesiologist Type: Anesthesia Postprocedure Evaluation Filed: 01/22/2020 12:45 PM Note Text: POST ANESTHESIA EVALUATION NOTE : 1980 Procedure Summary Date: 01/22/20 Room / Location: [facility] A / [facility] Anesthesia Start: 1027 Anesthesia Stop: 1049 Procedure: EGD WITH BIOPSY (N/A ) Diagnosis: Dysphagia, unspecified type Surgeons: Bryan Fonseca Responsible Provider: Rd Veronica MD Anesthesia Type: MAC ASA Status: 3 Anesthesia Type: MAC Last vitals Vitals Value Taken Time BP 127/84 01/22/20 1130 Temp 36.4 01/22/20 1244 Pulse 73 01/22/20 1135 Resp 15 01/22/20 1135 SpO2 95 % 01/22/20 1135 Vitals shown include unvalidated device data. Post Anesthesia Patient Status Patient Evaluation: bedside. Anticipated Disposition: phase 2 then home. Neurological Status: aware and responsive. Pulmonary Status: breathing comfortably on room air Airway Control: returned to baseline unsupported. Cardiovascular Status: stable. Pain Management: clinically adequate Postoperative Hydration: acceptable. Intraoperative Events: no significant anesthesia events Post Operative Nausea/Vomiting Status: no significant post operative nausea or vomiting Anesthetic Observations: no significant anesthetic observations Recommendation: continue current plan of care. SIGNATURE: Rd Veronica MD PATIENT NAME: Delmy Buchanan DATE: January 22, 2020 TIME: 12:44 PM CSN: [id number] [facility] ANES PRE-OPon 01-22-2020 ANES PRE-OP HNO ID: [id number] Author: Rd Veronica MD Service: ? Author Type: Anesthesiologist Type: Anesthesia Preprocedure Evaluation Filed: 01/22/2020 9:49 AM Note Text: ANESTHESIOLOGY DAY OF SURGERY NOTE : 1980 Procedure(s) (LRB): EGD (N/A) Surgeon(s): Bryan Fonseca Estimated body mass index is 35.78 kg/m? as calculated from the following: Height as of 01/19/20: 165.1 cm (5' 5 ). Weight as of 01/19/20: 97.5 kg (215 lb). Most recent hematocrit and potassium results: Hematocrit 44.4 03/10/2018 Potassium 4.1 03/10/2018 Relevant Problems ANESTHESIA (+) ALFONSO (obstructive sleep apnea) CARDIO (+) Migraine ENDO (+) Hypothyroidism (+) Uncontrolled type 2 diabetes mellitus without complication, with long-term current use of insulin GI (+) GERD (gastroesophageal reflux disease) -RENAL (+) Nonalcoholic steatohepatitis (BURKS) NEURO-PSYCH (+) CVA (cerebral vascular accident) (HCC) (+) 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 of intractable epilepsy (+) History of arteriovenous malformation (AVM) PULMONARY (+) ALFONSO (obstructive sleep apnea) I - PHYSICAL EVALUATION AIRWAY Patient intubated: No. Tracheostomy tube not present Mallampati: II. TM distance: >3 FB. Neck ROM: full ROM without neurological symptoms. Mouth opening: adequate. Short neck: no. Thick neck: no DENTAL Normal dental observations. Dental findings: teeth intact. Additional exam findings: no II - ANESTHESIA PLAN ASA Score: 3 Anesthetic Plan: MAC The patient is not a current smoker. NPO Status: adequate Monitoring plan: standard ASA. Postoperative analgesic plan: parenteral or oral opioids. Anesthetic Risks, Benefits, Alternatives, Personnel Discussed. Consent obtained from: patient. Patient / Surrogate agrees to blood products: blood products not planned DNR status not reviewed with patient and/or family prior to surgery. Significant changes in the patient condition since the History and Physical, not otherwise documented in primary service progress note: no. Potential Anesthesia issues that may suggest increased risk of complications or contraindication to planned procedure: none. No vitals data found for the desired time range. No current facility-administered medications on file as of 01/22/2020. Outpatient Medications as of 01/22/2020 Medication Sig - JARDIANCE 25 mg tablet Take 1 tablet by mouth once daily. - ezetimibe (ZETIA) 10 mg tablet Take 10 mg by mouth once daily. - icosapent ethyl 1 gram Take 2 capsules by mouth twice daily. - pravastatin (PRAVACHOL) 20 mg tablet Take 20 mg by mouth daily at bedtime. - CO Q-10 200 mg cap Take 1 capsule by mouth once daily. - clopidogrel (PLAVIX) 75 mg tablet clopidogrel Clopidogrel Bisulfate Active 75 MG DAILY December 10, 2019 10:38pm 12-10-2019 [facility] ([id number]) - pentoxifylline ER (TRENTAL) 400 mg CR tablet Take 1 tablet by mouth three times daily with meals. - cholecalciferol, Vitamin D3, (VITAMIN D3) 50,000 unit cap capsule Take 1 capsule by mouth once each week. - insulin glargine (LANTUS SOLOSTAR) 100 unit/mL (3 mL) inpn Inject 10 Units subcutaneously once daily. - gabapentin (NEURONTIN) 100 mg capsule Take 300 mg by mouth three times daily. 300MG TAB 5 TIMES PER DAY - ondansetron (ZOFRAN, HYDROCHLORIDE,) 4 mg tablet Take 1 tablet by mouth every 12 hours as needed for Nausea/Vomiting (for nausea.). - Topiramate (TOPAMAX) 50 mg tablet Take 50 mg by mouth once daily. - thyroid (ARMOUR THYROID) 30 mg tablet Take 30 mg by mouth once daily. - Blood Sugar Diagnostic, Drum (ACCU-CHEK COMPACT TEST) strp Test before and after every meal and at HS daily as directed, diabetes uncontrolled, multiple doses insulin per day, 250.02 - Insulin [place], Disposable, (PEN NEEDLE) 29 x 1/2 Ndle use four times daily with each dose of insulin ac and hs - lancets(ACCU-CHEK SOFTCLIX LANCETS) Test Blood sugars once daily I have interviewed and examined the patient. I have reviewed the medical record and/or the pre-anesthesia evaluation, pertinent labs, and test results. This contains updated information obtained within 48 hours of Surgery/Procedure. SIGNATURE: Rd Veronica MD PATIENT NAME: Delmy Buchanan DATE: January 22, 2020 TIME: 9:49 AM CSN: [id number] Normal [facility] HISTORY PHYSICALon 0 HISTORY PHYSICAL HNO ID: [id number] Author: Bryan Fonseca Service: General Surgery Author Type: Physician Type: HANDP Filed: 01/22/2020 9:56 AM Note Text: HISTORY AND PHYSICAL ? Delmy Buchanan 1980 ? REFERRING PHYSICIAN: Jhonny Valladares, * ? CHIEF COMPLAINT: DIFFUCULTY SWALLOWING ? HPI: The patient is a 39 year old female referred for endoscopy. Delmy notes issues with solid foods sticking in her throat x several months. States liquids and soft foods are fine, but meats or any tougher foods tend to stick. Following these with drinking fluids tends to help. She has been evaluated by her PCP Dr. Valladares for this, his last office note from 12/06/2019 is reviewed. Per that note patient had swallowing evaluation showing some dyssynchronous swallowing oral pharyngeal area. She was seen by speech therapy, report is not currently available for review. Patient states was not given any dietary modifications, and that no further workup or treatment was recommended by speech therapy. ? Patient has undergone prior endoscopy in [address] Fonseca which showed gastritis and esophagitis. She is referred by Jacquelyn back to our office for consideration of repeat EGD. Patient is established with Gastroenterology at [facility]. She has followed with Dr. Cooper and Dr. Lara in 2019 for fatty liver, nausea and vomiting, and chronic constipation. Patient states was wanting to have EGD done by Dr. Fonseca if possible since she has had him do this in the past. ? Patient denies any change in bowel habits, weight changes, blood in stools, black tarry stools or abdominal pain. Denies family history of colon cancer in a first-degree relative. ? Patient had complex medical history significant for AVM of brain, conversion disorder, epilepsy, fatty liver, type II diabetes mellitus, obstructive sleep apnea, polycystic ovaries, and stroke/TIA. Patient was diagnosed with a stroke in July 2019 and states then had a milder TIA in August. Neurology notes are reviewed, she followed with Dr. Ford. She is being maintained on Plavix currently. Per his note from 11/23/2019 she was felt to be stable and was noted to be optimized for an upcoming planned foot surgery. Notes mention that when patient had her stroke her blood pressure was significantly elevated. Patient states she has been monitoring her blood pressure since that time and denies further elevation. ? She denies chest pain, shortness of breath or dizziness. Denies problems with sedation in the past. ? ? PAST MEDICAL HISTORY PAST MEDICAL HISTORY Diagnosis Date - Acute gastritis without mention of hemorrhage 01/09/2010 - AVM OF BRAIN 03/15/2006 ? Left frontal, small, developmental - Calculus of kidney 05/27/2005 - Chronic abdominal pain syndrome 04/27/2013 - Conversion disorder 02/16/2007 - Conversion disorder (or hysterical neurosis, conversion type) 06/11/2011 - DDD (degenerative disc disease), lumbar 03/07/2012 - DEPRESSIVE DISORDER NEC 09/29/2007 - Depressive disorder, not elsewhere classified 09/29/2007 - DIABETES MELLITUS TYPE II-UNCOMPL 12/01/2007 - Epilepsy complicating , childbirth, or the puerperium, unspecified as to episode of care or not applicable(649.06) ? - Fatty liver 01/03/2009 - Gen cnv epil w/o intr ep 03/15/2006 ? Dr. Ford, Neurologist, [facility] - GEN CONVUL EPI W/O MENTN INTRACT 03/15/2006 - Headache(784.0) 02/16/2007 - IRRITABLE COLON 06/26/2006 - Migraine without aura ? - MYELOPATHY NEC 03/24/2007 - ALFONSO (obstructive sleep apnea) 08/12/2011 - Polycystic ovaries 01/27/2008 - RLS (restless legs syndrome) 08/12/2011 ? ? PAST SURGICAL HISTORY PAST SURGICAL HISTORY Procedure Laterality Date - ABD EMBOLIZATION W/ANGIO ? 12/01/2012 ? Left Ovarian Vein embolization - DELIVERY ONLY ? 2005 ? , low cervical - EGD W/O BRSH SPECIMEN W/BX ? 04/24/13 ? Gastritis - EGD W/O OR W/BRUSH/WASH ? 01/09/2010 ? EGD - EGD W/O OR W/BRUSH/WASH ? 01/28/2018 ? EGD - PAST SURGICAL HISTORY OF ? 1999 ? fx right fibula - PAST SURGICAL HISTORY OF ? 08/2003 ? stent in right kidney - PAST SURGICAL HISTORY OF ? 01/2008 ? right hallux- scar tissue extensor tendon - PAST SURGICAL HISTORY OF ? 08/26/10 ? laprascopic right salpingectomy [facility] Dr. Lyle - PAST SURGICAL HISTORY OF Left 12/2014 ? post tibial tendon repair - PAST SURGICAL HISTORY OF Right 05/2015 ? Repair Post tibial tendon - PAST SURGICAL HISTORY OF Right 12/2016 ? Repair Rt perineal tendon - REMOVAL GALLBLADDER ? 2001 ? Cholecystectomy - S PK [facility] [id number] ? 09/2015 ? lavhbs ? ? ? CURRENT MEDICATIONS Current Outpatient Medications Medication Sig - clopidogrel (PLAVIX) 75 mg tablet clopidogrel Clopidogrel Bisulfate Active 75 MG DAILY December 10, 2019 10:38pm 12-10-2019 [facility] ([id number]) - cholecalciferol, Vitamin D3, (VITAMIN D3) 50,000 unit cap capsule Take 1 capsule by mouth once each week. - insulin glargine (LANTUS SOLOSTAR) 100 unit/mL (3 mL) inpn Inject 10 Units subcutaneously once daily. - gabapentin (NEURONTIN) 100 mg capsule Take 300 mg by mouth three times daily. 300MG TAB 5 TIMES PER DAY - ondansetron (ZOFRAN, HYDROCHLORIDE,) 4 mg tablet Take 1 tablet by mouth every 12 hours as needed for Nausea/Vomiting (for nausea.). - Topiramate (TOPAMAX) 50 mg tablet Take 50 mg by mouth once daily. - thyroid (ARMOUR THYROID) 30 mg tablet Take 30 mg by mouth once daily. - Insulin [place], Disposable, (PEN NEEDLE) 29 x 1/2 Ndle use four times daily with each dose of insulin ac and hs - pentoxifylline ER (TRENTAL) 400 mg CR tablet Take 1 tablet by mouth three times daily with meals. - linaclotide (LINZESS) 145 mcg capsule Take 1 capsule by mouth DAILY (6 AM). - prucalopride 1 mg tablet (MOTEGRITY) Take 1 tablet (1 mg) by mouth once daily. - acetaminophen with codeine (TYLENOL-CODEINE #3 ORAL) Take by mouth as needed. - traMADol (ULTRAM) 50 mg tablet Take 50 mg by mouth three times daily as needed. - LIRAGLUTIDE (VICTOZA 3-ENEIDA SUBCUTANEOUS) Inject 1.8 Units subcutaneously. - Blood Sugar Diagnostic, Drum (ACCU-CHEK COMPACT TEST) strp Test before and after every meal and at HS daily as directed, diabetes uncontrolled, multiple doses insulin per day, 250.02 - lancets(ACCU-CHEK SOFTCLIX LANCETS) Test Blood sugars once daily ? No current facility-administered medications for this visit. ? ? ALLERGIES: Contrast Dye, Metformin, Morphine, Nortriptyline, and Sulfa (Sulfonamide Antibiotics) ? PERSONAL HISTORY: SOCIAL HISTORY Social History ? Tobacco Use - Smoking status: Former Smoker ? ? Years: 2.00 ? ? Types: Cigarettes ? ? Quit date: 09/16/1998 ? ? Years since quittin.2 - Smokeless tobacco: Never Used - Tobacco comment: Smoked in high school x 2 years, 3-4 cigarettes a day Substance Use Topics - Alcohol use: Yes ? ? Comment: rare - Drug use: Yes ? ? Types: Marijuana ? ? Comment: CBD OIL 500mg daily ? FAMILY HISTORY: FAMILY HISTORY FAMILY HISTORY Problem Relation Age of Onset - Arthritis Mother ? - Heart Father ? ? angina - Hypertension Father ? - Diabetes Maternal Grandmother ? ? TYPE II - Colon Cancer Maternal Aunt ? ? ? REVIEW OF SYMPTOMS: The review of systems data was entered by the nurse and reviewed by me ? Nursing Notes: Andriy Shi 12/21/2019 9:39 AM Signed REVIEW OF SYSTEMS: General: The patient NOTES fatigue, denies weight loss, denies weight gain, denies feeling hot, and denies feelings of cold. Eyes: The patient denies glaucoma, denies eye injury/surgery, wears glasses or contacts. Ear/Nose/Throat: The patient NOTES allergies, denies hayfever, denies ear infections, and denies bloody noses. Cardiovascular: The patient denies chest pain, denies heart disease, denies high blood pressure,denies cardiac stent, denies prior heart attack, denies irregular heart beat, NOTES high cholesterol, denies poor circulation, denies heart failure, other cardiac issues, denies claudication, denies cold feet, denies peripheral arterial stent. Respiratory: The patient denies tuberculosis, denies pneumonia, denies frequent cough, denies pulmonary embolism, denies shortness of breath, and denies coughing up blood. Gastrointestinal: The patient NOTES difficulty swallowing, denies acid reflux, denies ulcers, denies vomiting, denies jaundice/hepatitis, denies gallbladder problems, denies black or tarry stools, denies hemorrhoids, denies bleeding from rectum, denies diverticulitis, denies constipation, denies diarrhea, denies loss of stool control, and denies hernias. Kidney/Bladder: The patient NOTES kidney stones, denies urine infections, and denies bloody urine. Skin: The patient denies a history of skin cancer, denies bleeding/changing moles, and denies a history of skin rash. Neurologic: The patient NOTES a history of epilepsy/convulsions, NOTES headaches, denies head/spinal injuries, and NOTES stroke/TIA. Psychiatric: The patient denies psychiatric medications, denies depression, and denies voices, denies substance abuse. Endocrine: The patient NOTES thyroid disorders, NOTES diabetes, and denies hormonal problems. Hematologic: The patient NOTES a history of bruising, denies bleeding, and denies anemia, denies blood clots. Infections: The patient denies a history of measles and mumps, denies rheumatic fever, and denies sexually transmitted diseases. Musculoskeletal: The patient NOTES back pain/injury, NOTES back problems, NOTES sciatica, NOTES knee/foot trouble, NOTES arthritis, or denies gout. ? ? When was patient's last Mammogram screening? never had one ? Last Colonoscopy: NA ? Andriy Shi I have confirmed and edited as necessary, the PFSH and ROS obtained by others. ? ? ? PHYSICAL EXAMINATION: ? General: The patient is 39 year old female, well nourished, well hydrated in no acute distress. The patient is oriented to time, place, and person. ? VITALS: Blood pressure 124/88, pulse 87, temperature 36.5 ?C (97.7 ?F), temperature source Tympanic, resp. rate 18, height 167.6 cm (5' 6 ), weight 98.9 kg (218 lb), last menstrual period 09/07/2015, SpO2 98 %. Body mass index is 35.19 kg/m?. ? HEENT: Normal cephalic, ataumatic, pupils are equally round, sclera are anicteric, mucous membranes are moist, oropharynx is clear. Neck has no masses, asymmetry or lymphadenopathy. ? Respiratory: Clear to auscultation and percussion. Normal respiratory excursion and pattern. ? Cardiac: Examination is regular rate and rhythm. Normal S1/S2 ? Abdominal exam: Soft, nontender, with no palpable masses. No hepatosplenomegaly. No palpable hernias. ? Extremities: no clubbing, cyanosis or edema. No adenopathy. ? LABORATORY VALUES: As Noted ? RADIOLOGIC STUDIES: As Noted ? ? Assessment IMPRESSION: dysphagia, food sticking. History of stroke/TIA within the last 6 months ? PLAN: I have reviewed my findings with the surgeon. Will plan for upper endoscopy with Monitored Anesthetic Care. Patient will require PACC. We discussed the risks and benefits of the planned endoscopy. I have informed the patient that complications can occur including failure to complete the endoscopy and perforation. The patient had the opportunity to ask questions concerning the planned endoscopy. My staff has also explained the procedure to the patient in understandable terms and has given the patient printed material concerning the procedure. The patient freely consents to surgery. ? Patient states her referring physician told her something might need stretched in the esophagus. Discussed that Dr. Fonseca does not perform esophageal dilation and offered to set up appointment with Gastroenterology, as they can perform EGD and dilation if needed at same setting. Patient states she would like to proceed with EGD with Dr. Fonseca in [place] for now with understanding that no dilation would be performed. She notes if he finds something that needs stretched, I can then go back to Dr. Lara at [facility] whom she has seen in the past. ? The patient has medical comorbidities for which we will plan for the procedure to be performed under Monitored Anesthetic Care. ? Patient to remain on her anticoagulation for procedure per Dr. Fonseca ? The patient was offered a surgery/procedure at a [facility] facility. I have counseled the patient regarding the risk of exposure to and/or potential harm posed by the COVID-19 virus with having a surgery/procedure at this time versus the risk of? delaying the surgery/procedure. It is not possible to know either the risk of delaying the surgery or procedure or chance of getting an infection with perfect accuracy, but a joint decision was made between the patient and myself?to proceed at this time with endoscopy. ? COVID testing ordered, patient aware this will need done 3 days prior to procedure ? ? Diagnoses: (R13.10) Dysphagia, unspecified type (primary encounter diagnosis) (Z01.818) Preop testing (Z87.19) History of esophagitis (Z86.73) History of TIA (transient ischemic attack) and stroke (Z79.01) On continuous oral anticoagulation ? ? _ Laura Antonio PA-C [facility] NURSING PROGon 01-22-2020 NURSING PROG HNO ID: [id number] Author: Keara ByrdRn) RAVEN Urrutia Service: Nursing Author Type: Registered Nurse Type: Nursing Progress Note Filed: 01/22/2020 11:37 AM Note Text: Nursing Progress Note Patient Name: Delmy Buchanan Patient Location: [facility] pt incontinent of urine, linens changed, pericare completed. This note was completed by: Keara Urrutia RN [facility] PT EDon 01-22-2020 PT ED HNO ID: [id number] Author: Magnolia ByrdRnJonathan Moore RN Service: ? Author Type: Registered Nurse Type: Patient Education Filed: 01/22/2020 12:03 PM Note Text: POST OP LEARNING RESPONSE INSTRUCTION PROVIDED TO: Patient METHOD OF INSTRUCTION: Individual instruction PATIENT / FAMILY RESPONSE: Verbalizes understanding of: POST-OPERATIVE INSTRUCTIONS-Correct actions to take to reduce postoperative complications FOLLOW-UP PLAN: Complete - No need for follow-up SUPPLEMENTAL MATERIAL: None REFERRAL (RECOMMENDATION): None Electronically Signed By: Magnolia Moore RN In Department: [facility] ENDOSCOPY [facility] PT ED HNO ID: [id number] Author: Milady ByrdRnJonathan Lyle RN Service: ? Author Type: Registered Nurse Type: Patient Education Filed: 01/22/2020 10:09 AM Note Text: PRE OP LEARNING ASSESSMENT PROCEDURE/SURGERY: GI PROCEDURES: EGD READINESS TO LEARN COGNITIVE ABILITY: Alert and oriented MOTIVATION TO LEARN: Interested FAMILY SUPPORT: High - Very involved in pt care PATIENT LEARNS BEST BY: Verbal Instruction FACTORS AFFECTING LEARNING: None PHYSICAL LIMITATIONS AFFECTING LEARNING: None Electronically Signed By: Milady Lyle RN In Department: [facility] ENDOSCOPY Normal [facility] SURGICAL PATHOLOGYon 020 SURGICAL PATHOLOGY Specimen originated from [facility] Specimen #: [id number] Submitting Physician: Bryan Fonseca M.D. FINAL DIAGNOSIS 1. Esophagus, distal, biopsy (A) - Hyperplastic squamous esophageal mucosa and inflamed gastric cardia-type mucosa with reactive epithelial changes; negative for intestinal metaplasia. 2. Esophagus, mid, biopsy (B) - Hyperplastic squamous esophageal mucosa with rare intraepithelial eosinophils (focally up to 3 eosinophils per high power field). 3. Stomach, antral, biopsy (C) - Patchy mild chronic inactive gastritis. - No intestinal metaplasia or morphologic evidence of Helicobacter pylori organisms. 4. Jejunum , biopsy (D) - Duodenal-type mucosa with no significant pathologic change. 01/23/2020 Pricila Pimentel M.D. (Electronic Signature) SPECIMEN SUBMITTED A: DISTAL ESOPHAGUS, BIOPSY B: MID ESOPHAGUS, BIOPSY C: GASTRIC/ANTRAL, BIOPSY D: JEJUNUM, BIOPSY CLINICAL DATA NAUSEA, LMP: NA C: R/O H. PYLORI GROSS DESCRIPTION A. Received in formalin is one piece of [place], soft tissue measuring 0.3 x 0.3 x 0.2 cm. Totally submitted in one cassette. B. Received in formalin are two pieces of [place], soft tissue aggregating to 1.0 x 0.2 x 0.1 cm. Totally submitted in one cassette. C. Received in formalin is one piece of [place], soft tissue measuring 0.3 x 0.2 x 0.2 cm. Totally submitted in one cassette. D. Received in formalin is one piece of [place], soft tissue measuring 0.4 x 0.2 x 0.2 cm. Totally submitted in one cassette. Gross examination performed at [facility], [address] [place] [address] 01/23/2020 1:03:02 AM Date of Report: 01/23/2020 Date of Procedure: 01/22/2020 Date of Receipt: 01/22/2020 Submitted by: Bryan Fonseca M.D. Location: [facility] Diagnostic interpretation performed at [facility], [address] [place] [address]. CLIA Number: [id number] [facility] NURSING PROGon 01-19-2020 NURSING PROG HNO ID: [id number] Author: Emy (Rn) RAVEN Arguello Service: ? Author Type: Registered Nurse Type: Nursing Progress Note Filed: 01/19/2020 1:02 PM Note Text: PACC Nurse Progress Note History AND Physical: PACC Visit Date: 01-19-2020 Original HANDP Date: 01-19-2020 ED visit Date: N/A Outside HANDP Scanned Date: N/A Labs Within Last 6 Months: OTHER TEST: COVID19, Date scheduled 01-19-2020 105pm HgbA1C: Date: 08-20-2019- 8.4 (scanned into [facility]) Imaging Within Last 12 Months: See chart Cardiac Testing: N/A Last Menstrual Period: LMP Date: N/A Postmenopausal >1yr: N/A, S/P Hysterectomy: Yes BMI Percentile (PEDS): N/A Risk Assessment: N/A Anesthesia Review: N/A Narrative: Patient had PACC/ HANDP 01-19-2020. No consults or testing ordered by provider.. Patient is on Plavix for stroke -2019, and mild TIA . Per [facility] note from Laura Antonio PA-C, dated 12-21-2019, patient to remain on Plavix per Dr. Fonseca. COVID scheduled today at 105pm. Emy Arguello RN Pre-op Considerations: DM ALFONSO Fatty liver Stroke , TIA AVM Chart Check: COMPLETED- COVID scheduled 01-19-2020 1:05pm Emy Arguello RN January 19, 2020 11:26 AM [facility] HOSPon 12-21-2019 HOSP Patient:Robert Buchanan MRN: Height:5' 5 (1.651 m) Weight:215 lb (97.523 kg) Outpatient Medications as of 01/22/20: JARDIANCE 25 mg tablet ezetimibe (ZETIA) 10 mg tablet icosapent ethyl 1 gram pravastatin (PRAVACHOL) 20 mg tablet CO Q-10 200 mg cap meloxicam (MOBIC) 15 mg tablet clopidogrel (PLAVIX) 75 mg tablet pentoxifylline ER (TRENTAL) 400 mg CR tablet cholecalciferol, Vitamin D3, (VITAMIN D3) 50,000 unit cap capsule insulin glargine (LANTUS SOLOSTAR) 100 unit/mL (3 mL) inpn gabapentin (NEURONTIN) 100 mg capsule ondansetron (ZOFRAN, HYDROCHLORIDE,) 4 mg tablet Topiramate (TOPAMAX) 50 mg tablet thyroid (ARMOUR THYROID) 30 mg tablet Blood Sugar Diagnostic, Drum (ACCU-CHEK COMPACT TEST) strp Insulin [place], Disposable, (PEN NEEDLE) 29 x 1/2 Ndle lancets(ACCU-CHEK SOFTCLIX LANCETS) Admission/Clinic Administered Medications as of 01/22/20: NaCl 0.9% iv infusion Problem List: 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 of intractable epilepsy [G40.309] Headache(784.0) [R51] Type II or unspecified type diabetes mellitus without mention of complication, not stated as uncontrolled [E11.9] Anemia, unspecified [D64.9] Other and unspecified hyperlipidemia [E78.5] Conversion disorder (or hysterical neurosis, conversion type) [F44.9] ALFONSO (obstructive sleep apnea) [G47.33] Chronic back pain [M54.9, G89.29] Chronic abdominal pain syndrome [G89.4] Genital warts [A63.0] Genital herpes [A60.00] Gastroparesis [K31.84] Uncontrolled type 2 diabetes mellitus without complication, with long-term current use of insulin [[id number]] Nonalcoholic steatohepatitis (BURKS) [K75.81] Class 2 severe obesity due to excess calories with serious comorbidity and body mass index (BMI) of 35.0 to 35.9 in adult (HCC) [E66.01, Z68.35] History of arteriovenous malformation (AVM) [Z87.74] CVA (cerebral vascular accident) (HCC) [I63.9] RLS (restless legs syndrome) [G25.81] Migraine [G43.909] GERD (gastroesophageal reflux disease) [K21.9] Hypothyroidism [E03.9] Fibromyalgia [M79.7] PTSD (post-traumatic stress disorder) [F43.10] Dysphagia [R13.10] Allergies: Contrast Dye Metformin Morphine Nortriptyline Sulfa (Sulfonamide Antibiotics) Date Verified: 01/22/20 Lab Values No results within the last 30 days for the following basenames: K,HCT Progress Notes (PRE ANES VALERIE): Magnolia Lucero Ma 01/19/2020 12:39 PM Signed Most recent A1C printed from [employer] and scanned into chart. Magnolia Lucero Ma Normal [facility] Basic Metabolic Panelon 08-0 Anion gap [Moles/Vol] 11 Normal [facility] Comment on above: Performed By: #### B MP3, QWAL #### [facility] [address] [place], [place] Calcium [Mass/Vol] 8.7 mg/dL Normal 8.4-10.4 [facility] Comment on above: Performed By: #### Andrew MP3, QWAL #### [facility] [address] [place] [address] CO2 [Moles/Vol] 21 mmol/L Low 22-30 [facility] Comment on above: Performed By: #### B MP3, QWAL #### [facility] [address] [place] [address] Creatinine [Mass/Vol] 0.68 mg/dL Normal 0.52-1.25 [facility] Comment on above: Performed By: #### B MP3, QWAL #### [facility] [address] [place] [address] GFR/1.73 sq M predicted among blacks MDRD (S/P/Bld) [Vol rate/Area] mL/min/{1.73_m2} Normal >60 [facility] Comment on above: Performed By: #### Andrew MP3, QWAL #### [facility] [address] [place] [address] GFR/1.73 sq M predicted among non-blacks MDRD (S/P/Bld) [Vol rate/Area] mL/min/{1.73_m2} Normal >60 [facility] Comment on above: Result Comment: KDIG O guidelines provide the following GFR categories: Stage GFR(ml/min/1.73 m2) Terms G1 >=90 Normal or high G2 60-89 Mildly decreased* G3a 45-59 Mildly to moderately decreased G3b 30-44 Moderately to severely decreased G4 15-29 Severely decreased G5 <15 Kidney failure *Relative to young adult level. In the absence of evidence of kidney damage, neither GFR category G1 nor G2 fulfill the criteria for CKD. The CKD-EPI equation is validated in individuals 18 years of age and older. Currently the best equation for estimating glomerular filtration rate (GFR) from serum creatinine in children is the Bedside Maldonado equation. It is less accurate in patients with extremes of muscle mass, restriction of dietary protein, ingestion of creatine, extra-renal metabolism of creatinine, or treatment with medications that affect renal tubular creatinine secretion. Performed By: #### Andrew WHITE3, QWAL #### [facility] [address] [place], [place] Glucose [Mass/Vol] 260 mg/dL High 70-100 [facility] Comment on above: Performed By: #### Andrew MP3, QWAL #### [facility] [address] [place], [place] Urea nitrogen [Mass/Vol] 19 mg/dL Normal 7-20 [facility] Comment on above: Performed By: #### Andrew MP3, QWAL #### [facility] [address] [place] [address] Chloride [Moles/Vol] 104 mmol/L Normal 98-107 [facility] Comment on above: Performed By: #### Andrew MP3, QWAL #### [facility] [address] [place], [place] Potassium [Moles/Vol] 4.5 mmol/L Normal 3.5-5.1 [facility] Comment on above: Performed By: #### B MP3, QWAL #### [facility] [address] [place], [place] Sodium [Moles/Vol] 136 mmol/L Normal 135-145 [facility] Comment on above: Performed By: #### B MP3, QWAL #### [facility] [address] [place], [place] Anion gap [Moles/Vol] 11 mmol/L [place], [place] Calcium [Mass/Vol] 8.7 mg/dL 8.4 - 10. 4 mg/dL [place] Chloride [Moles/Vol] 104 mmol/L 98 - 107 mmol/L [place] CO2 [Moles/Vol] 21 mmol/L Low 22 - 30 mmol/L [place] Creatinine [Mass/Vol] 0.68 mg/dL 0.52 - 1.25 mg/dL [place] EGFR IF NonAfrican [place] >90.0 >60 mL/min [place] Comment on above: KDIGO guidelines pro vide the following GFR categories: Stage GFR(ml/min/1.73 m2) Terms G1 >=90 Normal or high G2 60-89 Mildly decreased* G3a 45-59 Mildly to moderately decreased G3b 30-44 Moderately to severely decreased G4 15-29 Severely decreased G5 <15 Kidney failure *Relative to young adult level. In the absence of evidence of kidney damage, neither GFR category G1 nor G2 fulfill the criteria for CKD. The CKD-EPI equation is validated in individuals 18 years of age and older. Currently the best equation for estimating glomerular filtration rate (GFR) from serum creatinine in children is the Bedside Maldonado equation. It is less accurate in patients with extremes of muscle mass, restriction of dietary protein, ingestion of creatine, extra-renal metabolism of creatinine, or treatment with medications that affect renal tubular creatinine secretion. GFR/1.73 sq M predicted among blacks MDRD (S/P/Bld) [Vol rate/Area] mL/min/{1.73_m2} >60 mL/min [place] Glucose [Mass/Vol] 260 mg/dL High 70 - 100 mg/dL [place] Interpretation and review of laboratory results Abnormal [place] Potassium [Moles/Vol] 4.5 mmol/L 3.5 - 5.1 mmol/L [place] Sodium [Moles/Vol] 136 mmol/L 135 - 145 mmol/L [place] Urea nitrogen [Mass/Vol] 19 mg/dL 7 - 20 mg/dL [place] Test Performed by [address] [address] [place] CBCon 12-11-2019 Erythrocyte distribution width (RBC) [Ratio] 15.4 % High 11.5 - 14.5 % [place] Hematocrit (Bld) [Volume fraction] 41.8 % 35 - 47 % [place] Hemoglobin (Bld) [Mass/Vol] 13.7 g/dL 11.7 - 16 g/dL [place] Interpretation and review of laboratory results Abnormal [place] MCH (RBC) [Entitic mass] 27.1 pg 26 - 34 pg [place] MCHC (RBC) [Mass/Vol] 32.9 % 32 - 36 % [place] MCV (RBC) [Entitic vol] 82.5 fL 79 - 98 fL [place] Platelet mean volume (Bld) [Entitic vol] 8.7 fL 7.4 - 10.4 fL [place] Platelets (Bld) [#/Vol] 228 10*3/uL 140 - 440 10*3/uL [place] RBC (Bld) [#/Vol] 5.06 10*6/uL 3.8 - 5.2 10*6/uL [place] WBC (Bld) [#/Vol] 6.1 10*3/uL 3.6 - 10.7 10*3/uL [place] Test Performed by [facility], [address] [place] [id number] [place], [place] ED Provider Noteon 0 ED Provider Note Emergency Department Encounter Location: [facility] EMERGENCY DEPT Patient: Delmy Buchanan : 1980 Date of evaluation: 12/11/2019 ED Provider: Jeffery Rowe PA-C 06:00a.mMynor Buchanan was checked out to me by Tarsha Salgado NP. Please see his/her initial documentation for details of the patient's initial ED presentation, physical exam and completed studies. In brief, Delmy Buchanan is a 39 y.o. female that presented to the emergency department with complaints of back pain. Patient is coming from [facility]. Patient has been experiencing pain to the low back with intermittent lower extremity weakness and several episodes of incontinence. I have reviewed and interpreted all of the currently available lab results and diagnostics from this visit: Results for orders placed or performed during the hospital encounter of 12/11/19 CBC Result Value Ref Range WBC 6.1 3.6 - 10.7 10*3/uL RBC 5.06 3.80 - 5.20 10*6/uL Hemoglobin 13.7 11.7 - 16.0 g/dL Hematocrit 41.8 35.0 - 47.0 % MCV 82.5 79.0 - 98.0 fL MCH 27.1 26.0 - 34.0 pg MCHC 32.9 32.0 - 36.0 % RDW 15.4 (H) 11.5 - 14.5 % Platelets 228 140 - 440 10*3/uL MPV 8.7 7.4 - 10.4 fL Protime-INR Result Value Ref Range Protime 9.8 9.0 - 12.0 s INR <0.9 0.9 - 1.1 NA Basic Metabolic Panel Result Value Ref Range Sodium 136 135 - 145 mmol/L Potassium 4.5 3.5 - 5.1 mmol/L Chloride 104 98 - 107 mmol/L CO2 21 (L) 22 - 30 mmol/L Anion Gap 11 NA Glucose 260 (H) 70 - 100 mg/dL BUN 19 7 - 20 mg/dL CREATININE 0.68 0.52 - 1.25 mg/dL eGFR >90.0 >60 mL/min EGFR IF NonAfrican [place] >90.0 >60 mL/min Calcium 8.7 8.4 - 10.4 mg/dL HCG, SERUM, QUALITATIVE Result Value Ref Range hCG Qual NEGATIVE m[IU]/mL TYPE AND SCREEN Result Value Ref Range ABO Grouping O NA Rh Type POS NA Antibody Screen NEG NA Mri Lumbar Spine Wo Contrast Result Date: 12/11/2019 Patient Name: DELMY BUCHANAN ---MRI--- Exam Date/Time 12/11/2019 06:37:01 EDT Exam MRI Spine Lumbar w/o Contrast Ordering Physician KIM SALGADO, TARSHA Accession Number [id number] CPT4 Codes 53577 () Reason For Exam cauda equina syndrome Report CLINICAL INFORMATION: Low back pain. Poor rectal tone. Incontinence. Evaluate for cauda equina syndrome. T1 and turbo spin-echo T2 sagittal and axial images of the lumbosacral spine are provided without IV contrast. There are no comparison studies. FINDINGS: The alignment of the lumbosacral spine is within normal limits. Disc space narrowing and desiccation are most pronounced at L4-5. Vertebral body heights are maintained. The marrow signal is normal. The spinal cord terminates at its normal location without focal abnormality. Incidental note is made of a small right renal cyst. Axial images demonstrate no significant canal or foraminal stenosis at T12-L1, L1-2, or L2-3. A mild central disc bulges noted at L3-4. This does not result in significant canal stenosis. There is no significant foraminal narrowing. A circumferential disc is noted at L4-5. This does not result in significant canal stenosis. There is mild left-sided foraminal narrowing. L5-S1 is unremarkable without significant canal or foraminal stenosis. IMPRESSION: 1. Mild degenerative changes in the lower lumbar spine. 2. No levels with significant canal stenosis. There is mild left-sided foraminal narrowing at L4-5. 3. The distal spinal cord/conus is normal. 4. Small right renal cyst. Report Dictated on Workstation: [facility] --- Final --- Dictated: 12/11/2019 6:46 am Dictating Physician: MD RIVAS JEFFREY Signed Date and Time: 12/11/2019 6:50 am Signed by: MD RIVAS JEFFREY Transcribed Date and Time: 12/11/2019 6:46 Final ED Course and MDM: In brief, Delmy Buchanan is a 39 y.o. female whose care was signed out to me by the outgoing provider. In brief, labs obtained, pending magnetic resonance imaging. Orthopedic residents consulted as well. Magnetic resonance imaging shows mild degenerative changes in the lower lumbar spine, no levels with significant canal stenosis, there is mild left-sided foraminal narrowing at L4-5, the distal spinal cord/conus is normal. Orthopedic residents evaluated the patient at bedside. Please see their note for further information. Per orthopedic standpoint, patient is cleared for discharge with close follow-up. Patient will receive Decadron prior to discharge, sent home with Medrol Dosepak and pain medication. Patient feels comfortable being discharged at this time. Given strict return precautions. ED Medication Orders (From admission, onward) Start Ordered Status Ordering Provider 12/11/19 1115 12/11/19 1102 dexamethasone (DECADRON) injection 4 mg ONCE Acknowledged JEFFERY ROWE 12/11/19 1115 12/11/19 1106 HYDROmorphone (DILAUDID) injection 1 mg ONCE Ordered JEFFERY ROWE 12/11/19 0530 12/11/19 0515 ondansetron (ZOFRAN) injection 4 mg ONCE Last MAR action: Given - by LAURA BONILLA on 12/11/19 at 0522 TARSHA SALGADO 12/11/19 0515 12/11/19 0515 HYDROmorphone (DILAUDID) injection 0.5 mg EVERY 15 MIN PRN Last MAR action: Given - by TRAN SANCHEZ on 12/11/19 at 0905 TARSHA SALGADO 12/11/19 0315 12/11/19 0313 ketorolac (TORADOL) injection 30 mg ONCE Last MAR action: Given - by LAURA BONILLA on 12/11/19 at 0331 TARSHA SALGADO Final Impression 1. Acute midline low back pain with bilateral sciatica DISPOSITION Discharge - Pending Orders Complete 12/11/2019 11:06:32 AM (Please note that portions of this note may have been completed with a voice recognition program. Efforts were made to edit the dictations but occasionally words are mis-transcribed.) Jeffery Rowe PA-C [employer] Jeffery Rowe PA-C 12/11/19 1116 [facility] EKG 12 [place] 12-11-2019 [facility] Test Date: 2019-12-11 Pat Name: Delmy Buchanan Department: 1AER Room: 1ECB Gender: F Park Attendant: DEVAN BERGMANB: 1980 Requested By: ALMAS BRAVO Order Number: [id number] Reading MD: Kelvin Dickson Measurements Intervals Gilbert Rate: 81 P: 19 DE: 125 QRS: 7 QRSD: 86 T: 11 QT: 374 QTc: 434 Interpretive Statements Sinus rhythm Electronically Signed On 12-11-2019 13:01:29 EDT by [place], [place] Abdullahi, [facility] Incoming Cardiology Results From [facility] - 12/11/2019 1:02 PM EDT [facility] Test Date: 2019-12-11 Pat Name: Delmy Buchanan Department: 1AER Room: 1ECB Gender: F Park Attendant: DEVAN BERGMANB: 1980 Requested By: ALMAS BRAVO Order Number: [id number] Reading MD: Kelvin Dickson Measurements Intervals Gilbert Rate: 81 P: 19 DE: 125 QRS: 7 QRSD: 86 T: 11 QT: 374 QTc: 434 Interpretive Statements Sinus rhythm Electronically Signed On 12-11-2019 13:01:29 EDT by [place], [place] HCG, SERUM, QUALITATIVEon hCG Qual Negative m[IU]/mL [place], [place] Comment on above: Reference Range: NEG ATIVE Effective 08/15/2019, the reference interval for the qualitative test has been updated. This test detects hCG at concentrations of 10 mIU/L or greater in serum. Test Performed by [facility], [address] [place] [id number] [place] [address] Hemogramon 12-11-2019 Erythrocyte distribution width (RBC) [Ratio] 15.4 % High 11.5-14.5 [facility] Comment on above: Performed By: #### B GLU #### [address] [address] Hematocrit (Bld) [Volume fraction] 41.8 % Normal 35.0-47.0 [facility] Comment on above: Performed By: #### B GLU #### [facility] [address], [place] Hemoglobin (Bld) [Mass/Vol] 13.7 g/dL Normal 11.7-16.0 [facility] Comment on above: Performed By: #### B GLU #### [facility] [address], [place] MCH (RBC) [Entitic mass] 27.1 pg Normal 26.0-34.0 [facility] Comment on above: Performed By: #### B GLU #### [facility] [address], [place] MCHC (RBC) [Mass/Vol] 32.9 % Normal 32.0-36.0 [facility] Comment on above: Performed By: #### B GLU #### [facility] [address], [place] MCV (RBC) [Entitic vol] 82.5 fL Normal 79.0-98.0 [facility] Comment on above: Performed By: #### B GLU #### [facility] [address], [place] Platelet mean volume (Bld) [Entitic vol] 8.7 fL Normal 7.4-10.4 [facility] Comment on above: Performed By: #### B GLU #### [facility] [address], [place] Platelets (Bld) [#/Vol] 228 10*3/uL Normal 140-440 [facility] Comment on above: Performed By: #### B GLU #### [facility] [address], [place] RBC (Bld) [#/Vol] 5.06 10*6/uL Normal 3.80-5.20 [facility] Comment on above: Performed By: #### B GLU #### [facility] [address], [place] WBC (Bld) [#/Vol] 6.1 10*3/uL Normal 3.6-10.7 [facility] Comment on above: Performed By: #### B GLU #### [facility] [address] [place] [id number] MRI LUMBAR SPINE WO CONTRAST on 12-11-2019 Abdullahi, [facility] Incoming Radiology Results From [facility] - 12/11/2019 6:51 AM EDT Patient Name: DELMY BUCHANAN ---MRI--- Exam Date/Time 12/11/2019 06:37:01 EDT Exam MRI Spine Lumbar w/o Contrast Ordering Physician KIM SALGADO RYAN Accession Number [id number] CPT4 Codes 71693 () Reason For Exam cauda equina syndrome Report CLINICAL INFORMATION: Low back pain. Poor rectal tone. Incontinence. Evaluate for cauda equina syndrome. T1 and turbo spin-echo T2 sagittal and axial images of the lumbosacral spine are provided without IV contrast. There are no comparison studies. FINDINGS: The alignment of the lumbosacral spine is within normal limits. Disc space narrowing and desiccation are most pronounced at L4-5. Vertebral body heights are maintained. The marrow signal is normal. The spinal cord terminates at its normal location without focal abnormality. Incidental note is made of a small right renal cyst. Axial images demonstrate no significant canal or foraminal stenosis at T12-L1, L1-2, or L2-3. A mild central disc bulges noted at L3-4. This does not result in significant canal stenosis. There is no significant foraminal narrowing. A circumferential disc is noted at L4-5. This does not result in significant canal stenosis. There is mild left-sided foraminal narrowing. L5-S1 is unremarkable without significant canal or foraminal stenosis. IMPRESSION: 1. Mild degenerative changes in the lower lumbar spine. 2. No levels with significant canal stenosis. There is mild left-sided foraminal narrowing at L4-5. 3. The distal spinal cord/conus is normal. 4. Small right renal cyst. Report Dictated on Workstation: [facility] --- Final --- Dictated: 12/11/2019 6:46 am Dictating Physician: MD RIVAS JEFFREY Signed Date and Time: 12/11/2019 6:50 am Signed by: MD RIVAS JEFFREY Transcribed Date and Time: 12/11/2019 6:46 [place], [place] Patient Name: DELMY LENTZ ---MRI--- Exam Date/Time 12/11/2019 06:37:01 EDT Exam MRI Spine Lumbar w/o Contrast Ordering Physician KIM SALGADO RYAN Accession Number [id number] CPT4 Codes 19538 () Reason For Exam cauda equina syndrome Report CLINICAL INFORMATION: Low back pain. Poor rectal tone. Incontinence. Evaluate for cauda equina syndrome. T1 and turbo spin-echo T2 sagittal and axial images of the lumbosacral spine are provided without IV contrast. There are no comparison studies. FINDINGS: The alignment of the lumbosacral spine is within normal limits. Disc space narrowing and desiccation are most pronounced at L4-5. Vertebral body heights are maintained. The marrow signal is normal. The spinal cord terminates at its normal location without focal abnormality. Incidental note is made of a small right renal cyst. Axial images demonstrate no significant canal or foraminal stenosis at T12-L1, L1-2, or L2-3. A mild central disc bulges noted at L3-4. This does not result in significant canal stenosis. There is no significant foraminal narrowing. A circumferential disc is noted at L4-5. This does not result in significant canal stenosis. There is mild left-sided foraminal narrowing. L5-S1 is unremarkable without significant canal or foraminal stenosis. IMPRESSION: 1. Mild degenerative changes in the lower lumbar spine. 2. No levels with significant canal stenosis. There is mild left-sided foraminal narrowing at L4-5. 3. The distal spinal cord/conus is normal. 4. Small right renal cyst. Report Dictated on Workstation: [facility] --- Final --- Dictated: 12/11/2019 6:46 am Dictating Physician: MD RIVAS JEFFREY Signed Date and Time: 12/11/2019 6:50 am Signed by: MD RIVAS JEFFREY Transcribed Date and Time: 12/11/2019 6:46 [place] MRI Spine Lumbar w/o Contras ton 12-11-2019 MRI Spine Lumbar w/o Contrast Patient Name: DELMY BUCHANAN MRI Exam Date/Time 12/11/2019 06:37:01 EDT Exam MRI Spine Lumbar w/o Contrast Ordering Physician KIM SALGADO RYAN Accession Number [id number] CPT4 Codes 48898 () Reason For Exam cauda equina syndrome Report CLINICAL INFORMATION: Low back pain. Poor rectal tone. Incontinence. Evaluate for cauda equina syndrome. T1 and turbo spin-echo T2 sagittal and axial images of the lumbosacral spine are provided without IV contrast. There are no comparison studies. FINDINGS: The alignment of the lumbosacral spine is within normal limits. Disc space narrowing and desiccation are most pronounced at L4-5. Vertebral body heights are maintained. The marrow signal is normal. The spinal cord terminates at its normal location without focal abnormality. Incidental note is made of a small right renal cyst. Axial images demonstrate no significant canal or foraminal stenosis at T12-L1, L1-2, or L2-3. A mild central disc bulges noted at L3-4. This does not result in significant canal stenosis. There is no significant foraminal narrowing. A circumferential disc is noted at L4-5. This does not result in significant canal stenosis. There is mild left-sided foraminal narrowing. L5-S1 is unremarkable without significant canal or foraminal stenosis. IMPRESSION: 1. Mild degenerative changes in the lower lumbar spine. 2. No levels with significant canal stenosis. There is mild left-sided foraminal narrowing at L4-5. 3. The distal spinal cord/conus is normal. 4. Small right renal cyst. Report Dictated on Workstation: [facility] Final Dictated: 12/11/2019 6:46 am Dictating Physician: MD RIVAS JEFFREY Signed Date and Time: 12/11/2019 6:50 am Signed by: MD RIVAS JEFFREY Transcribed Date and Time: 12/11/2019 6:46 Normal [facility] Prothrombin Timeon 0 INR Coag (PPP) [Relative time] {INR} Normal 0.9-1.1 [facility] Comment on above: Result Comment: Mc mmended Anticoagulant Therapy: SEE BELOW ----- INR of 2.0 - 3.0 : - Prophylaxis of Venous Thrombosis (high-risk surgery) - Treatment of Venous Thrombosis - Treatment of Pulmonary Embolism (Includes tissue heart valves, Acute Myocardial Infarction to prevent systemic embolism, Valvular Heart Disease, and Atrial Fibrillation) ----- INR of 2.5 - 3.5 : - Mechanical Prosthetic Valves (high risk) - If oral anticoagulant therapy is used to prevent Myocardial Infarction Performed By: #### B GLU #### [facility] [address] [place] [address] PT Coag (PPP) [Time] 9.8 s Normal 9.0-12.0 [facility] Comment on above: Result Comment: . Performed By: #### B GLU #### [facility] [address], [place] Protime-INRon 12-11-2019 INR Coag (PPP) [Relative time] {INR} [place], [place] Comment on above: Recommended Anticoag ulant Therapy: SEE BELOW ----- INR of 2.0 - 3.0 : - Prophylaxis of Venous Thrombosis (high-risk surgery) - Treatment of Venous Thrombosis - Treatment of Pulmonary Embolism (Includes tissue heart valves, Acute Myocardial Infarction to prevent systemic embolism, Valvular Heart Disease, and Atrial Fibrillation) ----- INR of 2.5 - 3.5 : - Mechanical Prosthetic Valves (high risk) - If oral anticoagulant therapy is used to prevent Myocardial Infarction PT Coag (PPP) [Time] 9.8 s 9 - 12 s [place], [place] Comment on above: . Test Performed by [facility], [address] [place] [address] TS GELon 12-11-2019 TS GEL ABO Group: O Rh, Gel: POS Antibody Screen Gel: NEG Normal [facility] Comment on above: Performed By: #### T SGL ####[facility] TYPE AND SCREENon 12-11-2019 Sodium [Moles/Vol] Positive [place], [place] Sodium [Moles/Vol] Negative [place] Sodium [Moles/Vol] O [place] Test Performed by [facility] GLG [facility], [address] [place] [address] Health- [place], [place] hCG Qual Pregon 12-11-2019 hCG Qual Preg Negative Normal [facility] Comment on above: Result Comment: Refe rence Range: NEGATIVE Effective 08/15/2019, the reference interval for the qualitative test has been updated. This test detects hCG at concentrations of 10 mIU/L or greater in serum. Performed By: #### B MP3, QWAL #### [facility] [address], [place] Basic Metabolic Panelon 07-08 Calcium [Mass/Vol] 9.1 mg/dL Normal 8.4-10.4 [place] Comment on above: Performed By: #### B GLU #### [place] [address] [place], [place] Glucose [Mass/Vol] 158 mg/dL High 70-100 [place], [place] Comment on above: Performed By: #### B GLU #### [place] [address] [place], [place] Urea nitrogen [Mass/Vol] 16 mg/dL Normal 7-20 [place] Comment on above: Performed By: #### B GLU #### [place] [address] [place], [place] Anion gap [Moles/Vol] 10 Normal [facility] Comment on above: Performed By: #### B GLU #### [place] [address] [place], [place] CO2 [Moles/Vol] 21 mmol/L Low 22-30 [place] Comment on above: Performed By: #### B GLU #### [place] [address] [place], [place] Creatinine [Mass/Vol] 0.93 mg/dL Normal 0.52-1.25 [place] Comment on above: Performed By: #### B GLU #### [place] [address] [place], [place] GFR/1.73 sq M predicted among blacks MDRD (S/P/Bld) [Vol rate/Area] mL/min/{1.73_m2} Normal >60 [place], [place] Comment on above: Performed By: #### B GLU #### [facility] [address] [place] [address] GFR/1.73 sq M predicted among non-blacks MDRD (S/P/Bld) [Vol rate/Area] mL/min/{1.73_m2} Normal >60 [facility] Comment on above: Result Comment: Sour ce- MDRD equation with creatinine calibration to IDMS(NKDEP) eGFR not recommended for drug dose adjustment Performed By: #### B GLU #### [facility] [address] [place] [address] Potassium [Moles/Vol] 3.9 mmol/L Normal 3.5-5.1 [place] Comment on above: Performed By: #### B GLU #### [place] [address] [place] [address] Chloride [Moles/Vol] 105 mmol/L Normal 98-107 [place], [place] Comment on above: Performed By: #### B GLU #### [facility] [address] [place] [address] Sodium [Moles/Vol] 136 mmol/L Normal 135-145 [place], [place] Comment on above: Performed By: #### B GLU #### [place] [address] [place] [address] Basic Metabolic Panel w/ Ref lory to MGon 07-22-2019 Anion gap [Moles/Vol] 10 mmol/L [place], [place] EGFR IF NonAfrican [place] >60.0 >60 mL/min [place], [place] Comment on above: Source- MDRD equatio n with creatinine calibration to IDMS(NKDEP) eGFR not recommended for drug dose adjustment CBC auto differentialon 07-08 Absolute Baso # 0.1 10*3/uL 0 - 0.2 10*3/uL [place] Absolute Neut # 2.0 10*3/uL 1.8 - 7 10*3/uL [place] Basophils/100 WBC (Bld) 1.1 % 0 - 2 % [place] Eosinophils (Bld) [#/Vol] 0.4 10*3/uL 0 - 0.5 10*3/uL [place] Eosinophils/100 WBC (Bld) 9.2 % High 1 - 6 % [place] Erythrocyte distribution width (RBC) [Ratio] 15.5 % High 11.5 - 14.5 % [place] Granulocytes/100 WBC (Bld) 44.4 % 40 - 80 % [place] Hematocrit (Bld) [Volume fraction] 41.8 % 35 - 47 % [place] Hemoglobin (Bld) [Mass/Vol] 13.9 g/dL 11.7 - 16 g/dL [place] Interpretation and review of laboratory results Abnormal [place] Lymphocytes (Bld) [#/Vol] 1.7 10*3/uL 1 - 4.3 10*3/uL [place] Lymphocytes/100 WBC (Bld) 38.5 % 20 - 40 % [place] MCH (RBC) [Entitic mass] 27.0 pg 26 - 34 pg [place] MCHC (RBC) [Mass/Vol] 33.4 % 32 - 36 % [place] MCV (RBC) [Entitic vol] 81.0 fL 79 - 98 fL [place] Monocytes (Bld) [#/Vol] 0.3 10*3/uL 0 - 0.8 10*3/uL [place] Monocytes/100 WBC (Bld) 6.8 % 2 - 10 % [place] Platelet mean volume (Bld) [Entitic vol] 8.2 fL 7.4 - 10.4 fL [place] Platelets (Bld) [#/Vol] 201 10*3/uL 140 - 440 10*3/uL [place] RBC (Bld) [#/Vol] 5.16 10*6/uL 3.8 - 5.2 10*6/uL [place] WBC (Bld) [#/Vol] 4.4 10*3/uL 3.6 - 10.7 10*3/uL [facility], [place] Test Performed by [facility], [address] [place] [address] [facility], [place] Glucose,Bedsideon 07-22-2019 Glucose [Mass/Vol] 147 mg/dL High 70-100 [facility] Comment on above: Result Comment: Test performed by glucose meter. Results may be 10%-15% lower than serum/plasma values. (CLIA ID [id number]) Performed By: #### B GLU #### [facility] [address], [place] Glucose [Mass/Vol] 166 mg/dL High 70-100 [facility] Comment on above: Result Comment: Test performed by glucose meter. Results may be 10%-15% lower than serum/plasma values. (CLIA ID [id number]) Performed By: #### B GLU #### [place] [address] [place] [address] Hemogram w/ Autodiffon 07-21 Abs Baso Cnt 0.1 10*3/uL Normal 0.0-0.2 [facility] Comment on above: Performed By: #### B GLU #### [place] [address] [place], [place] Abs Neutrophile Cnt 2.0 10*3/uL Normal 1.8-7.0 [facility] Comment on above: Performed By: #### B GLU #### [facility] [address] [place] [address] Basophils/100 WBC (Bld) 1.1 % Normal 0.0-2.0 [facility] Comment on above: Performed By: #### B GLU #### [place] [address] [place], [place] Eosinophils (Bld) [#/Vol] 0.4 10*3/uL Normal 0.0-0.5 [facility] Comment on above: Performed By: #### B GLU #### [place] [address] [place] [address] Eosinophils/100 WBC (Bld) 9.2 % High 1.0-6.0 [facility] Comment on above: Performed By: #### B GLU #### [facility] [address], [place] Erythrocyte distribution width (RBC) [Ratio] 15.5 % High 11.5-14.5 [facility] Comment on above: Performed By: #### B GLU #### [facility] [address] [place] [address] Granulocytes/100 WBC (Bld) 44.4 % Normal 40.0-80.0 [facility] Comment on above: Performed By: #### B GLU #### [facility] [address], [place] Hematocrit (Bld) [Volume fraction] 41.8 % Normal 35.0-47.0 [facility] Comment on above: Performed By: #### B GLU #### [facility] [address], [place] Hemoglobin (Bld) [Mass/Vol] 13.9 g/dL Normal 11.7-16.0 [facility] Comment on above: Performed By: #### B GLU #### [facility] [address], [place] Lymphocytes (Bld) [#/Vol] 1.7 10*3/uL Normal 1.0-4.3 [facility] Comment on above: Performed By: #### B GLU #### [facility] [address], [place] Lymphocytes/100 WBC (Bld) 38.5 % Normal 20.0-40.0 [facility] Comment on above: Performed By: #### B GLU #### [facility] [address], [place] MCH (RBC) [Entitic mass] 27.0 pg Normal 26.0-34.0 [facility] Comment on above: Performed By: #### B GLU #### [facility] [address], [place] MCHC (RBC) [Mass/Vol] 33.4 % Normal 32.0-36.0 [facility] Comment on above: Performed By: #### B GLU #### [facility] [address], [place] MCV (RBC) [Entitic vol] 81.0 fL Normal 79.0-98.0 [facility] Comment on above: Performed By: #### B GLU #### [facility] [address], [place] Monocytes (Bld) [#/Vol] 0.3 10*3/uL Normal 0.0-0.8 [facility] Comment on above: Performed By: #### B GLU #### [facility] [address], [place] Monocytes/100 WBC (Bld) 6.8 % Normal 2.0-10.0 [facility] Comment on above: Performed By: #### B GLU #### [facility] [address], [place] Platelet mean volume (Bld) [Entitic vol] 8.2 fL Normal 7.4-10.4 [facility] Comment on above: Performed By: #### B GLU #### [facility] [address], [place] Platelets (Bld) [#/Vol] 201 10*3/uL Normal 140-440 [facility] Comment on above: Performed By: #### B GLU #### [facility] [address], [place] RBC (Bld) [#/Vol] 5.16 10*6/uL Normal 3.80-5.20 [facility] Comment on above: Performed By: #### B GLU #### [facility] [address], [place] WBC (Bld) [#/Vol] 4.4 10*3/uL Normal 3.6-10.7 [facility] Comment on above: Performed By: #### B GLU #### [facility] [address], [place] MRI CERVICAL SPINE W WO CONT RASTon 07-22-2019 [facility], [facility] Incoming Radiology Results From [facility] - 07/22/2019 11:48 AM EDT Patient Name: DELMY BUCHANAN ---MRI--- Exam Date/Time 07/22/2019 09:10:04 EDT Exam MRI Spine Cervical w/ + w/o Contrast Ordering Physician KIM PICKARD, NUVIA Hanley Accession Number [id number] CPT4 Codes 04227 () Reason For Exam RUE weakness/numbness Report Examination: MRI cervical spine Indication: RUE weakness/numbness Technique: Multiplanar multi-sequence MRI images of the cervical spine were obtained. Postgadolinium T1 axial and sagittal imaging was obtained following intravenous contrast administration of 9 mL Gadavist. Findings: The cervical vertebral bodies are in gross anatomic alignment. There is no acute fracture. There is no focal marrow replacing lesion. The cervical cord is grossly of normal caliber without signal abnormality. There is no cerebellar tonsillar ectopia. The paraspinal musculature is grossly unremarkable. No abnormal enhancement is noted. The central canal foramina of the thoracic spine are grossly patent. Impression: Few prominent to slightly enlarged cervical and submandibular lymph nodes. Followup is recommended. Otherwise unremarkable cervical spine. Report Dictated on --- Final --- Dictated: 07/22/2019 11:37 am Dictating Physician: MD SHIPLEY KRIKOR Signed Date and Time: 07/22/2019 11:47 am Signed by: MD SHIPLEY KRIKOR Transcribed Date and Time: 07/22/2019 11:37 [place], [place] Patient Name: DELMY LENTZ ---MRI--- Exam Date/Time 07/22/2019 09:10:04 EDT Exam MRI Spine Cervical w/ + w/o Contrast Ordering Physician KIM PICKARD, NUVIA Hanley Accession Number [id number] CPT4 Codes 17093 () Reason For Exam RUE weakness/numbness Report Examination: MRI cervical spine Indication: RUE weakness/numbness Technique: Multiplanar multi-sequence MRI images of the cervical spine were obtained. Postgadolinium T1 axial and sagittal imaging was obtained following intravenous contrast administration of 9 mL Gadavist. Findings: The cervical vertebral bodies are in gross anatomic alignment. There is no acute fracture. There is no focal marrow replacing lesion. The cervical cord is grossly of normal caliber without signal abnormality. There is no cerebellar tonsillar ectopia. The paraspinal musculature is grossly unremarkable. No abnormal enhancement is noted. The central canal foramina of the thoracic spine are grossly patent. Impression: Few prominent to slightly enlarged cervical and submandibular lymph nodes. Followup is recommended. Otherwise unremarkable cervical spine. Report Dictated on --- Final --- Dictated: 07/22/2019 11:37 am Dictating Physician: MD SHIPLEY KRIKOR Signed Date and Time: 07/22/2019 11:47 am Signed by: MD SHIPLEY KRIKOR Transcribed Date and Time: 07/22/2019 11:37 [place], [place] MRI Spine Cervical w/ + w/o Contraston 07-22-2019 MRI Spine Cervical w/ + w/o Contrast Patient Name: DELMY BUCHANAN MRI Exam Date/Time 07/22/2019 09:10:04 EDT Exam MRI Spine Cervical w/ + w/o Contrast Ordering Physician KIM PICKARD, NUVIA Hanley Accession Number [id number] CPT4 Codes 95252 () Reason For Exam RUE weakness/numbness Report Examination: MRI cervical spine Indication: RUE weakness/numbness Technique: Multiplanar multi-sequence MRI images of the cervical spine were obtained. Postgadolinium T1 axial and sagittal imaging was obtained following intravenous contrast administration of 9 mL Gadavist. Findings: The cervical vertebral bodies are in gross anatomic alignment. There is no acute fracture. There is no focal marrow replacing lesion. The cervical cord is grossly of normal caliber without signal abnormality. There is no cerebellar tonsillar ectopia. The paraspinal musculature is grossly unremarkable. No abnormal enhancement is noted. The central canal foramina of the thoracic spine are grossly patent. Impression: Few prominent to slightly enlarged cervical and submandibular lymph nodes. Followup is recommended. Otherwise unremarkable cervical spine. Report Dictated on Final Dictated: 07/22/2019 11:37 am Dictating Physician: MD SHIPLEY KRIKOR Signed Date and Time: 07/22/2019 11:47 am Signed by: MD SHIPLEY KRIKOR Transcribed Date and Time: 07/22/2019 11:37 Normal [facility] Otheron 07-22-2019 Interpretation and review of laboratory results Abnormal [facility], [place] Test Performed by [facility], [facility] [place] [facility] [place] [address] [facility], [place] POCT Glucoseon 07-22-2019 Glucose [Mass/Vol] 147 mg/dL High 70 - 100 mg/dL [place], [place] Comment on above: Test performed by gl ucose meter. Results may be 10%-15% lower than serum/plasma values. (CLIA ID [id number]) Interpretation and review of laboratory results Abnormal [facility] [place], [place] Test Performed by [facility], [facility] [place] [address] [facility], [place] Glucose [Mass/Vol] 166 mg/dL High 70 - 100 mg/dL [place] Comment on above: Test performed by gl ucose meter. Results may be 10%-15% lower than serum/plasma values. (CLIA ID [id number]) Basic Metabolic Panelon 07-08 Anion gap [Moles/Vol] 8 Normal [facility] Comment on above: Performed By: #### B GLU #### [facility] [address] [place] [address] Calcium [Mass/Vol] 8.8 mg/dL Normal 8.4-10.4 [facility] Comment on above: Performed By: #### B GLU #### [facility] [address] [place] [address] CO2 [Moles/Vol] 22 mmol/L Normal 22-30 [facility] Comment on above: Performed By: #### B GLU #### [facility] [address] [place] [address] Glucose [Mass/Vol] 117 mg/dL High 70-100 [facility] Comment on above: Performed By: #### B GLU #### [facility] [address] [place], [place] Urea nitrogen [Mass/Vol] 17 mg/dL Normal 7-20 [facility] Comment on above: Performed By: #### B GLU #### [facility] [address] [place], [place] Creatinine [Mass/Vol] 0.70 mg/dL Normal 0.52-1.25 [facility] Comment on above: Performed By: #### B GLU #### [place] [address] [place], [place] GFR/1.73 sq M predicted among blacks MDRD (S/P/Bld) [Vol rate/Area] mL/min/{1.73_m2} Normal >60 [facility] Comment on above: Performed By: #### B GLU #### [place] [place], [place] GFR/1.73 sq M predicted among non-blacks MDRD (S/P/Bld) [Vol rate/Area] mL/min/{1.73_m2} Normal >60 [facility] Comment on above: Result Comment: Sour ce- MDRD equation with creatinine calibration to IDMS(NKDEP) eGFR not recommended for drug dose adjustment Performed By: #### B GLU #### [place] [place], [place] Potassium [Moles/Vol] 3.9 mmol/L Normal 3.5-5.1 [facility] Comment on above: Result Comment: Slig htly hemolysed, interpret with caution. Performed By: #### B GLU #### [place] [place], [place] Sodium [Moles/Vol] 136 mmol/L Normal 135-145 [facility] Comment on above: Performed By: #### B GLU #### [place] [place], [place] Chloride [Moles/Vol] 107 mmol/L Normal 98-107 [facility] Comment on above: Performed By: #### B GLU #### [address] [place] [address] Basic Metabolic Panel w/ Ref lory to MGon 07-21-2019 Anion gap [Moles/Vol] 8 mmol/L [place] Calcium [Mass/Vol] 8.8 mg/dL 8.4 - 10. 4 mg/dL [place] Chloride [Moles/Vol] 107 mmol/L 98 - 107 mmol/L [place] CO2 [Moles/Vol] 22 mmol/L 22 - 30 mmol/L [place] Creatinine [Mass/Vol] 0.7 mg/dL 0.52 - 1.25 mg/dL [place] EGFR IF NonAfrican [place] >60.0 >60 mL/min [place] Comment on above: Source- MDRD equatio n with creatinine calibration to IDMS(NKDEP) eGFR not recommended for drug dose adjustment GFR/1.73 sq M predicted among blacks MDRD (S/P/Bld) [Vol rate/Area] mL/min/{1.73_m2} >60 mL/min [place] Glucose [Mass/Vol] 117 mg/dL High 70 - 100 mg/dL [place] Interpretation and review of laboratory results Abnormal [place] Potassium [Moles/Vol] 3.9 mmol/L 3.5 - 5.1 mmol/L [place] Comment on above: Slightly hemolysed, interpret with caution. Sodium [Moles/Vol] 136 mmol/L 135 - 145 mmol/L [place] Urea nitrogen [Mass/Vol] 17 mg/dL 7 - 20 mg/dL [place] Test Performed by [facility], [address] [place] [address] [place] CBC auto differentialon 07-08 Absolute Baso # 0.1 10*3/uL 0 - 0.2 10*3/uL [place] Absolute Neut # 2.8 10*3/uL 1.8 - 7 10*3/uL [place] Basophils/100 WBC (Bld) 1.5 % 0 - 2 % [place] Eosinophils (Bld) [#/Vol] 0.5 10*3/uL 0 - 0.5 10*3/uL [place] Eosinophils/100 WBC (Bld) 7.2 % High 1 - 6 % [place] Erythrocyte distribution width (RBC) [Ratio] 16.1 % High 11.5 - 14.5 % [place] Granulocytes/100 WBC (Bld) 42.7 % 40 - 80 % [place] Hematocrit (Bld) [Volume fraction] 42.1 % 35 - 47 % [place] Hemoglobin (Bld) [Mass/Vol] 13.8 g/dL 11.7 - 16 g/dL [place] Interpretation and review of laboratory results Abnormal [place] Lymphocytes (Bld) [#/Vol] 2.8 10*3/uL 1 - 4.3 10*3/uL [place] Lymphocytes/100 WBC (Bld) 42.8 % High 20 - 40 % [place] MCH (RBC) [Entitic mass] 27.1 pg 26 - 34 pg [place] MCHC (RBC) [Mass/Vol] 32.7 % 32 - 36 % [place] MCV (RBC) [Entitic vol] 82.8 fL 79 - 98 fL [place] Monocytes (Bld) [#/Vol] 0.4 10*3/uL 0 - 0.8 10*3/uL [place] Monocytes/100 WBC (Bld) 5.8 % 2 - 10 % [place] Platelet mean volume (Bld) [Entitic vol] 8.7 fL 7.4 - 10.4 fL [place] Platelets (Bld) [#/Vol] 174 10*3/uL 140 - 440 10*3/uL [place] RBC (Bld) [#/Vol] 5.09 10*6/uL 3.8 - 5.2 10*6/uL [place] WBC (Bld) [#/Vol] 6.5 10*3/uL 3.6 - 10.7 10*3/uL [facility] [place] Test Performed by [facility], [address] [place] [address] [facility], [place] Glucose,Bedsideon 07-21-2019 Glucose [Mass/Vol] 234 mg/dL High 70-100 [facility] Comment on above: Result Comment: Test performed by glucose meter. Results may be 10%-15% lower than serum/plasma values. (CLIA ID [id number]) Performed By: #### B GLU #### [address] [place] [address] Glucose [Mass/Vol] 133 mg/dL High 70-100 [facility] Comment on above: Result Comment: Test performed by glucose meter. Results may be 10%-15% lower than serum/plasma values. (CLIA ID [id number]) Performed By: #### B GLU #### [address] [place] [address] Glucose [Mass/Vol] 174 mg/dL High 70-100 [facility] Comment on above: Result Comment: Test performed by glucose meter. Results may be 10%-15% lower than serum/plasma values. (CLIA ID [id number]) Performed By: #### B GLU #### [address] [place] [address] Glucose [Mass/Vol] 170 mg/dL High 70-100 [facility] Comment on above: Result Comment: Test performed by glucose meter. Results may be 10%-15% lower than serum/plasma values. (CLIA ID [id number]) Performed By: #### B GLU #### [facility] [address] [place] [address] Hemogram w/ Autodiffon 07-20 Platelet mean volume (Bld) [Entitic vol] 8.7 fL Normal 7.4-10.4 [facility] Comment on above: Performed By: #### B GLU #### [address] [place] [address] Platelets (Bld) [#/Vol] 174 10*3/uL Normal 140-440 [facility] Comment on above: Performed By: #### B GLU #### [facility] [address] [place], [place] Abs Baso Cnt 0.1 10*3/uL Normal 0.0-0.2 [facility] Comment on above: Performed By: #### B GLU #### [place] [place], [place] Abs Neutrophile Cnt 2.8 10*3/uL Normal 1.8-7.0 [facility] Comment on above: Performed By: #### B GLU #### [place] [place] Basophils/100 WBC (Bld) 1.5 % Normal 0.0-2.0 [facility] Comment on above: Performed By: #### B GLU #### [place] [place] [place] Eosinophils (Bld) [#/Vol] 0.5 10*3/uL Normal 0.0-0.5 [facility] Comment on above: Performed By: #### B GLU #### [place] [place] Eosinophils/100 WBC (Bld) 7.2 % High 1.0-6.0 [facility] Comment on above: Performed By: #### B GLU #### [place] [place] Erythrocyte distribution width (RBC) [Ratio] 16.1 % High 11.5-14.5 [facility] Comment on above: Performed By: #### B GLU #### [place] [place] Granulocytes/100 WBC (Bld) 42.7 % Normal 40.0-80.0 [facility] Comment on above: Performed By: #### B GLU #### [address] [place], [place] Hematocrit (Bld) [Volume fraction] 42.1 % Normal 35.0-47.0 [facility] Comment on above: Performed By: #### B GLU #### [address] [place] Hemoglobin (Bld) [Mass/Vol] 13.8 g/dL Normal 11.7-16.0 [facility] Comment on above: Performed By: #### B GLU #### [address] [place] Lymphocytes (Bld) [#/Vol] 2.8 10*3/uL Normal 1.0-4.3 [facility] Comment on above: Performed By: #### B GLU #### [address] [place] Lymphocytes/100 WBC (Bld) 42.8 % High 20.0-40.0 [facility] Comment on above: Performed By: #### B GLU #### [place] [place] MCH (RBC) [Entitic mass] 27.1 pg Normal 26.0-34.0 [facility] Comment on above: Performed By: #### B GLU #### [address] [place] MCHC (RBC) [Mass/Vol] 32.7 % Normal 32.0-36.0 [facility] Comment on above: Performed By: #### B GLU #### [place] [place] MCV (RBC) [Entitic vol] 82.8 fL Normal 79.0-98.0 [facility] Comment on above: Performed By: #### B GLU #### [place] [place] Monocytes (Bld) [#/Vol] 0.4 10*3/uL Normal 0.0-0.8 [facility] Comment on above: Performed By: #### B GLU #### [address] [place] Monocytes/100 WBC (Bld) 5.8 % Normal 2.0-10.0 [facility] Comment on above: Performed By: #### B GLU #### [place] [place] RBC (Bld) [#/Vol] 5.09 10*6/uL Normal 3.80-5.20 [facility] Comment on above: Performed By: #### B GLU #### [facility] [address] [place] [address] WBC (Bld) [#/Vol] 6.5 10*3/uL Normal 3.6-10.7 [facility] Comment on above: Performed By: #### B GLU #### [facility] [address] [place] [address] MRI BRAIN W WO CONTRASTon Abdullahi, [facility] Incoming Radiology Results From [facility] - 07/21/2019 8:51 AM EDT Patient Name: DELMY BUCHANAN ---MRI--- Exam Date/Time 07/20/2019 21:18:18 EDT Exam MRI Brain w/ + w/o Contrast Ordering Physician KIM PICKARD, NUVIA Hanley Accession Number [id number] CPT4 Codes 16237 () Reason For Exam stroke, history of AVM Report MRI BRAIN WITH AND WITHOUT CONTRAST CLINICAL: Stroke. History of AVM. COMPARISON: CT head July 20, 2019 Multiplanar, multisequence MR imaging of the brain was performed prior to and following contrast. The patient received 9 mL of Gadavist. FINDINGS: The diffusion-weighted imaging is without evidence of acute ischemic injury. 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 There is no hydrocephalus. The basilar cisterns are patent. There are few small, punctate foci of subcortical and periventricular leukomalacia within the bilateral parietal distributions on the T2 and FLAIR weighted imaging, which are nonspecific. The gradient echo imaging is without artifact is products. No sizable extra-axial fluid collection midline shift. The orbits appear symmetric. Mild scattered mucosal thickening within the paranasal sinuses. Internal auditory canals are normal in caliber. No abnormal masses seen within the sella. The infundibulum is midline and normal in caliber. The major intracranial internal carotid and vertebrobasilar T2 signal flow voids appear grossly patent. Postcontrast no pathologic brain parenchymal enhancement is identified. There is a small developmental venous anomaly within the inferior left frontal lobe. IMPRESSION: No evidence of acute ischemic injury. Partial corpus callosum agenesis. Few punctate foci of nonspecific leukomalacia within the bilateral parietal distributions. No abnormal enhancement or evidence of susceptibility artifact to suggest underlying arteriovenous malformation nidus. There is a small developmental venous anomaly seen within the inferior left frontal lobe distribution. Report Dictated on Workstation: [facility] --- Final --- Dictated: 07/21/2019 8:27 am Dictating Physician: MD DELA CRZU BRIAN Signed Date and Time: 07/21/2019 8:50 am Signed by: MD DELA CRUZ BRIAN Transcribed Date and Time: 07/21/2019 8:29 [place] Patient Name: DELMY LENTZ ---MRI--- Exam Date/Time 07/20/2019 21:18:18 EDT Exam MRI Brain w/ + w/o Contrast Ordering Physician KIM PICKARD, NUVIA Hanley Accession Number [id number] CPT4 Codes 76596 () Reason For Exam stroke, history of AVM Report MRI BRAIN WITH AND WITHOUT CONTRAST CLINICAL: Stroke. History of AVM. COMPARISON: CT head July 20, 2019 Multiplanar, multisequence MR imaging of the brain was performed prior to and following contrast. The patient received 9 mL of Gadavist. FINDINGS: The diffusion-weighted imaging is without evidence of acute ischemic injury. 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 There is no hydrocephalus. The basilar cisterns are patent. There are few small, punctate foci of subcortical and periventricular leukomalacia within the bilateral parietal distributions on the T2 and FLAIR weighted imaging, which are nonspecific. The gradient echo imaging is without artifact is products. No sizable extra-axial fluid collection midline shift. The orbits appear symmetric. Mild scattered mucosal thickening within the paranasal sinuses. Internal auditory canals are normal in caliber. No abnormal masses seen within the sella. The infundibulum is midline and normal in caliber. The major intracranial internal carotid and vertebrobasilar T2 signal flow voids appear grossly patent. Postcontrast no pathologic brain parenchymal enhancement is identified. There is a small developmental venous anomaly within the inferior left frontal lobe. IMPRESSION: No evidence of acute ischemic injury. Partial corpus callosum agenesis. Few punctate foci of nonspecific leukomalacia within the bilateral parietal distributions. No abnormal enhancement or evidence of susceptibility artifact to suggest underlying arteriovenous malformation nidus. There is a small developmental venous anomaly seen within the inferior left frontal lobe distribution. Report Dictated on Workstation: [facility] --- Final --- Dictated: 07/21/2019 8:27 am Dictating Physician: MD DELA CRUZ BRIAN Signed Date and Time: 07/21/2019 8:50 am Signed by: MD DELA CRUZ BRIAN Transcribed Date and Time: 07/21/2019 8:29 [place] MRI Brain w/ + w/o Contrasto n 07-21-2019 MRI Brain w/ + w/o Contrast Patient Name: DELMY BUCHANAN MRI Exam Date/Time 07/20/2019 21:18:18 EDT Exam MRI Brain w/ + w/o Contrast Ordering Physician KIM PICKARD, NUVIA Hanley Accession Number [id number] CPT4 Codes 61499 () Reason For Exam stroke, history of AVM Report MRI BRAIN WITH AND WITHOUT CONTRAST CLINICAL: Stroke. History of AVM. COMPARISON: CT head July 20, 2019 Multiplanar, multisequence MR imaging of the brain was performed prior to and following contrast. The patient received 9 mL of Gadavist. FINDINGS: The diffusion-weighted imaging is without evidence of acute ischemic injury. 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 There is no hydrocephalus. The basilar cisterns are patent. There are few small, punctate foci of subcortical and periventricular leukomalacia within the bilateral parietal distributions on the T2 and FLAIR weighted imaging, which are nonspecific. The gradient echo imaging is without artifact is products. No sizable extra-axial fluid collection midline shift. The orbits appear symmetric. Mild scattered mucosal thickening within the paranasal sinuses. Internal auditory canals are normal in caliber. No abnormal masses seen within the sella. The infundibulum is midline and normal in caliber. The major intracranial internal carotid and vertebrobasilar T2 signal flow voids appear grossly patent. Postcontrast no pathologic brain parenchymal enhancement is identified. There is a small developmental venous anomaly within the inferior left frontal lobe. IMPRESSION: No evidence of acute ischemic injury. Partial corpus callosum agenesis. Few punctate foci of nonspecific leukomalacia within the bilateral parietal distributions. No abnormal enhancement or evidence of susceptibility artifact to suggest underlying arteriovenous malformation nidus. There is a small developmental venous anomaly seen within the inferior left frontal lobe distribution. Report Dictated on Workstation: [employer] Final Dictated: 07/21/2019 8:27 am Dictating Physician: MD DELA CRUZ BRIAN Signed Date and Time: 07/21/2019 8:50 am Signed by: MD DELA CRUZ BRIAN Transcribed Date and Time: 07/21/2019 8:29 Normal [facility] POCT Glucoseon 07-21-2019 Glucose [Mass/Vol] 234 mg/dL High 70 - 100 mg/dL [facility], [place] Comment on above: Test performed by gl ucose meter. Results may be 10%-15% lower than serum/plasma values. (CLIA ID [id number]) Interpretation and review of laboratory results [facility] [place] [place] Performed by [facility], [address] [place] [address] [facility], [place] Glucose [Mass/Vol] 133 mg/dL High 70 - 100 mg/dL [facility], [place] Comment on above: Test performed by gl ucose meter. Results may be 10%-15% lower than serum/plasma values. (CLIA ID [id number]) Interpretation and review of laboratory results Abnormal [facility] [place], [place] Test Performed by [facility], [facility] [place] [address] [facility], [place] Glucose [Mass/Vol] 174 mg/dL High 70 - 100 mg/dL [facility], [place] Comment on above: Test performed by gl ucose meter. Results may be 10%-15% lower than serum/plasma values. (CLIA ID [id number]) Interpretation and review of laboratory results Abnormal [place] Test Performed by [facility], [facility] [address] [place], [place] [id number] [place] [address] Glucose [Mass/Vol] 170 mg/dL High 70 - 100 mg/dL [place] Comment on above: Test performed by gl ucose meter. Results may be 10%-15% lower than serum/plasma values. (CLIA ID [id number]) Interpretation and review of laboratory results Abnormal [place] Test Performed by [facility], [facility] [place] [address] [place] Troponinon 07-21-2019 Troponin I.cardiac [Mass/Vol] ng/mL 0 - 0.034 ng/mL [place] Comment on above: . Test Performed by [facility], [facility], [place] [id number] [place] [address] Troponin Ion 07-21-2019 Troponin I.cardiac [Mass/Vol] ng/mL Normal 0.000-0.034 [facility] Comment on above: Result Comment: . Performed By: #### B GLU #### [address] [place], [place] Basic Metabolic Panelon 07-08 Calcium [Mass/Vol] 9.1 mg/dL Normal 8.4-10.4 [facility] Comment on above: Performed By: #### B GLU #### [address] [place], [place] Anion gap [Moles/Vol] 10 Normal [facility] Comment on above: Performed By: #### B GLU #### [place] [address] [address] [place], [place] CO2 [Moles/Vol] 21 mmol/L Low 22-30 [facility] Comment on above: Performed By: #### B GLU #### [address] [place] [address] [address] [place], [place] Creatinine [Mass/Vol] 0.63 mg/dL Normal 0.52-1.25 [facility] Comment on above: Performed By: #### B GLU #### [facility] [address] [place] [address] GFR/1.73 sq M predicted among blacks MDRD (S/P/Bld) [Vol rate/Area] mL/min/{1.73_m2} Normal >60 [facility] Comment on above: Performed By: #### B GLU #### [facility] [address] [place] [address] GFR/1.73 sq M predicted among non-blacks MDRD (S/P/Bld) [Vol rate/Area] mL/min/{1.73_m2} Normal >60 [facility] Comment on above: Result Comment: Sour ce- MDRD equation with creatinine calibration to IDMS(NKDEP) eGFR not recommended for drug dose adjustment Performed By: #### B GLU #### [address] [place] [address] Glucose [Mass/Vol] 155 mg/dL High 70-100 [facility] Comment on above: Performed By: #### B GLU #### [address] [address] [address] [place], [place] Urea nitrogen [Mass/Vol] 18 mg/dL Normal 7-20 [facility] Comment on above: Performed By: #### B GLU #### [address] [address] [address] [place], [place] Chloride [Moles/Vol] 105 mmol/L Normal 98-107 [facility] Comment on above: Performed By: #### B GLU #### [place] [place] [address] [address] [place], [place] Potassium [Moles/Vol] 3.9 mmol/L Normal 3.5-5.1 [facility] Comment on above: Result Comment: Slig htly hemolysed, interpret with caution. Performed By: #### B GLU #### [facility] [address] [place], [place] Sodium [Moles/Vol] 135 mmol/L Normal 135-145 [facility] Comment on above: Performed By: #### B GLU #### [address] [address] [place] [address] Basic Metabolic Panel w/ Ref lory to MGon 07-20-2019 Anion gap [Moles/Vol] 10 mmol/L [place], [place] Calcium [Mass/Vol] 9.1 mg/dL 8.4 - 10. 4 mg/dL [place] Chloride [Moles/Vol] 105 mmol/L 98 - 107 mmol/L [place] CO2 [Moles/Vol] 21 mmol/L Low 22 - 30 mmol/L [place] Creatinine [Mass/Vol] 0.63 mg/dL 0.52 - 1.25 mg/dL [place] EGFR IF NonAfrican [place] >60.0 >60 mL/min [place] Comment on above: Source- MDRD equatio n with creatinine calibration to IDMS(NKDEP) eGFR not recommended for drug dose adjustment GFR/1.73 sq M predicted among blacks MDRD (S/P/Bld) [Vol rate/Area] mL/min/{1.73_m2} >60 mL/min [place], [place] Glucose [Mass/Vol] 155 mg/dL High 70 - 100 mg/dL [place] Potassium [Moles/Vol] 3.9 mmol/L 3.5 - 5.1 mmol/L [place] Comment on above: Slightly hemolysed, interpret with caution. Sodium [Moles/Vol] 135 mmol/L 135 - 145 mmol/L [place] Urea nitrogen [Mass/Vol] 18 mg/dL 7 - 20 mg/dL [place] CBC auto differentialon 07-08 Absolute Baso # 0.1 10*3/uL 0 - 0.2 10*3/uL [place] Absolute Neut # 3.0 10*3/uL 1.8 - 7 10*3/uL [place] Basophils/100 WBC (Bld) 1.0 % 0 - 2 % [place] Eosinophils (Bld) [#/Vol] 0.5 10*3/uL 0 - 0.5 10*3/uL [place] Eosinophils/100 WBC (Bld) 7.0 % High 1 - 6 % [place] Erythrocyte distribution width (RBC) [Ratio] 15.6 % High 11.5 - 14.5 % [place] Granulocytes/100 WBC (Bld) 44.1 % 40 - 80 % [place] Hematocrit (Bld) [Volume fraction] 42.1 % 35 - 47 % [place] Hemoglobin (Bld) [Mass/Vol] 14.0 g/dL 11.7 - 16 g/dL [place] Lymphocytes (Bld) [#/Vol] 2.7 10*3/uL 1 - 4.3 10*3/uL [place] Lymphocytes/100 WBC (Bld) 40.2 % High 20 - 40 % [place] MCH (RBC) [Entitic mass] 27.1 pg 26 - 34 pg [place] MCHC (RBC) [Mass/Vol] 33.1 % 32 - 36 % [place] MCV (RBC) [Entitic vol] 81.6 fL 79 - 98 fL [place] Monocytes (Bld) [#/Vol] 0.5 10*3/uL 0 - 0.8 10*3/uL [place] Monocytes/100 WBC (Bld) 7.7 % 2 - 10 % [place] Platelet mean volume (Bld) [Entitic vol] 8.5 fL 7.4 - 10.4 fL [place] Platelets (Bld) [#/Vol] 243 10*3/uL 140 - 440 10*3/uL [place] RBC (Bld) [#/Vol] 5.16 10*6/uL 3.8 - 5.2 10*6/uL [place] WBC (Bld) [#/Vol] 6.7 10*3/uL 3.6 - 10.7 10*3/uL [place] CT HEAD WO CONTRASTon 2019 [facility], [facility] Incoming Radiology Results From [facility] - 07/20/2019 5:51 AM EDT Patient Name: DELMY BUCHANAN ---CT--- Exam Date/Time 07/20/2019 05:38:[address] Head or Brain w/o Contrast Ordering Physician LISA GOMES Accession Number [id number] CPT4 Codes 94641 () Reason For Exam stroke s/p tPA, patient endorses headache left sided Report CT HEAD WITHOUT CONTRAST: INDICATION: Headache, status post TPA COMPARISON: None. Unenhanced CT images of the head from skull base to vertex were obtained. The images are reviewed in the axial, sagittal and coronal planes. The ventricles and sulci are within normal limits for the patient's age. There is no evidence of hemorrhage, mass or large acute infarct. There is no mass or significant shift of the midline structures. There are no extraaxial or posterior fossa masses or fluid collections. The hypothalamic and parasellar regions are unremarkable. There is mild mucosal thickening of the left maxillary sinus. The mastoid air cells are clear. IMPRESSION: Negative CT examination of the brain. Left maxillary sinusitis. Report Dictated on Workstation: [id number] --- Final --- Dictated: 07/20/2019 5:49 am Dictating Physician: DO TABARES ALFRED Signed Date and Time: 07/20/2019 5:50 am Signed by: DO TABARES ALFRED Transcribed Date and Time: 07/20/2019 5:49 [place], [place] Patient Name: DELMY LENTZ ---CT--- Exam Date/Time 07/20/2019 05:38:[address] Head or Brain w/o Contrast Ordering Physician LISA GOMES Accession Number [id number] CPT4 Codes 53885 () Reason For Exam stroke s/p tPA, patient endorses headache left sided Report CT HEAD WITHOUT CONTRAST: INDICATION: Headache, status post TPA COMPARISON: None. Unenhanced CT images of the head from skull base to vertex were obtained. The images are reviewed in the axial, sagittal and coronal planes. The ventricles and sulci are within normal limits for the patient's age. There is no evidence of hemorrhage, mass or large acute infarct. There is no mass or significant shift of the midline structures. There are no extraaxial or posterior fossa masses or fluid collections. The hypothalamic and parasellar regions are unremarkable. There is mild mucosal thickening of the left maxillary sinus. The mastoid air cells are clear. IMPRESSION: Negative CT examination of the brain. Left maxillary sinusitis. Report Dictated on Workstation: [id number] --- Final --- Dictated: 07/20/2019 5:49 am Dictating Physician: DO TABARES ALFRED Signed Date and Time: 07/20/2019 5:50 am Signed by: DO TABARES ALFRED Transcribed Date and Time: 07/20/2019 5:49 [place], [place] CT Head or Brain w/o Contras ton 07-20-2019 CT Head or Brain w/o Contrast Patient Name: DELMY BUCHANAN CT Exam Date/Time 07/20/2019 05:38:[address] Head or Brain w/o Contrast Ordering Physician LISA GOMES Accession Number [id number] CPT4 Codes 11454 () Reason For Exam stroke s/p tPA, patient endorses headache left sided Report CT HEAD WITHOUT CONTRAST: INDICATION: Headache, status post TPA COMPARISON: None. Unenhanced CT images of the head from skull base to vertex were obtained. The images are reviewed in the axial, sagittal and coronal planes. The ventricles and sulci are within normal limits for the patient's age. There is no evidence of hemorrhage, mass or large acute infarct. There is no mass or significant shift of the midline structures. There are no extraaxial or posterior fossa masses or fluid collections. The hypothalamic and parasellar regions are unremarkable. There is mild mucosal thickening of the left maxillary sinus. The mastoid air cells are clear. IMPRESSION: Negative CT examination of the brain. Left maxillary sinusitis. Report Dictated on Workstation: [id number] Final Dictated: 07/20/2019 5:49 am Dictating Physician: DO TABARES ALFRED Signed Date and Time: 07/20/2019 5:50 am Signed by: DO TABARES ALFRED Transcribed Date and Time: 07/20/2019 5:49 Normal [facility] Calcium, Ionizedon 0 Ionized Ca 4.20 mg/dL Low 4.3 - 5.2 mg/dL [facility], [place] pH (Bld) 7.42 [pH] [facility], [place] Calcium,Ionizedon 07-20-2019 Ionized Ca,Measured 4.20 mg/dL Low 4.30-5.20 [facility] Comment on above: Performed By: #### B GLU #### [facility] [address] [place] [address] pH, Ionized Calcium 7.42 Normal 7.31-7.46 [facility] Comment on above: Performed By: #### B GLU #### [facility] [address] [place] [address] ECHO Complete 2D W Doppler W Coloron 07-20-2019 Abdullahi, [facility] Incoming Cardiology Results From [facility] - 07/20/2019 10:58 AM EDT TRANSTHORACIC ECHOCARDIOGRAM PATIENT: Delmy Buchanan STUDY DATE: 07/20/2019 M : 1980 AGE: 38 HT/WT: 167.6 cm (66 94.4 kg in) (207.6 lb) GENDER: F BP: 138 / 90 LOCATION: [facility] PATIENT Inpatient [facility] STATUS: *ORDERING PHYSICIAN: * Lisa Gomes *FELLOW: * Mari Arredondo *READING PHYSICIAN: * Jasmina, *VENEER DRIER FEEDER: * Maria Elena Benson MD [facility] INDICATIONS: Stroke. CONCLUSIONS SUMMARY: 1. Left ventricle: Systolic function is normal by the biplane method of disks. The estimated ejection fraction is 64%. There are no regional wall motion abnormalities. Left ventricular diastolic function parameters are normal. 2. Right ventricle: Systolic function is normal. Right ventricular systolic pressure is within the normal range. 3. Atrial septum: Color Doppler shows no shunt. There is no evidence of right to left shunting with injection of agitated saline contrast. 4. No significant valve disease. 5. No source of embolism is identified. STUDY DATA: Complete transthoracic echocardiogram. Procedure: Image quality was good. The study was technically limited due to poor acoustic window availability and respiratory interference. Intravenous imaging enhancement (Definity) was administered to opacify the chamber. Definity lot #: [id number]. M-mode, complete 2D, complete spectral Doppler, and color flow Doppler images were acquired and archived for permanent storage and are available for subsequent review. Study status: Routine. Patient status: Inpatient. ECG RHYTHM: NSR FINDINGS LEFT VENTRICLE: Well visualized. The cavity size is normal. Wall thickness is normal. There is no hypertrophy. Systolic function is normal by the biplane method of disks. The estimated ejection fraction is 64%. There are no regional wall motion abnormalities. Left ventricular diastolic function parameters are normal. RIGHT VENTRICLE: The cavity size is normal. Systolic function is normal. Right ventricular systolic pressure is within the normal range. VENTRICULAR SEPTUM: There is no evidence of a ventricular septal defect. LEFT ATRIUM: The atrium is normal in size. RIGHT ATRIUM: The atrium is normal in size. ATRIAL SEPTUM: Color Doppler shows no shunt. There is no evidence of right to left shunting with injection of agitated saline contrast. MITRAL VALVE: Structurally normal valve. Doppler: There is no evidence for stenosis. There is trivial, less than 1+ regurgitation. AORTIC VALVE: Structurally normal valve. Trileaflet; normal thickness leaflets. Doppler: There is no significant regurgitation. The peak systolic gradient is 6 mm Hg. The peak systolic velocity is 1.2 m/sec. TRICUSPID VALVE: No significant valve disease. Doppler: There is trivial, less than 1+ regurgitation. PULMONIC VALVE: No significant valve disease. Doppler: There is trivial, less than 1+ regurgitation. AORTA: The aorta is poorly visualized, normal, and normal size. PULMONARY ARTERY: Main pulmonary artery: Normal. PERICARDIUM: There is no pericardial effusion. SYSTEMIC VEINS: Inferior vena cava: The vessel is normal. The IVC collapses by greater than 50% with inspiration. Measurements Value Reference Aortic root ID 3.0 cm <3.8 Aortic root ID, STJ, ED 2.9 cm 2.0 - 3.2 Aortic root ID/bsa, STJ, ED 1.4 cm/m^2 1.1 - 1.9 Value Reference Ascending aorta ID, A-P, S 3.4 cm Ascending aorta ID/bsa, A-P, S 1.6 cm/m^2 Left ventricle Value Reference LV ID, ED 4.4 cm 3.8 - 5.2 LV ID, ES 3.1 cm 2.2 - 3.5 LV ID/bsa, ED (L) 2.1 cm/m^2 2.3 - 3.1 LV ID/bsa, ES 1.5 cm/m^2 1.3 - 2.1 LV PW thickness, ED 0.8 cm 0.6 - 0.9 LV PW/LV ID ratio, ED 0.18 LV wall mass 121 g 66 - 150 LV wall mass/bsa 57 g/m^2 44 - 88 Stroke volume/bsa, 1-p A2C 33.9 ml/m^2 LV end-diastolic volume, 1-p A4C 117 ml 48 - 140 LV end-systolic volume, 1-p A4C 35 ml 12 - 60 LV end-diastolic volume, 2-p (H) 119 ml 46 - 106 LV end-systolic volume, 2-p (H) 43 ml 14 - 42 LV ejection fraction, 2-p 64 % 54 - 74 LV E/e', lateral 6.5 LV E/e', medial 7.7 LV E/e', average 7.1 Ventricular septum Value Reference IVS thickness, ED 0.9 cm 0.6 - 0.9 LVOT Value Reference LVOT ID, A-P 2.1 cm LVOT mean velocity, S 0.7 m/sec LVOT peak gradient, S 4 mm Hg Stroke volume (SV), LVOT DP 74 ml Stroke index (SV/bsa), LVOT DP 35 ml/m^2 Aortic valve Value Reference Aortic valve peak velocity, S 1.2 m/sec Aortic peak gradient, S 6 mm Hg Left atrium Value Reference LA volume/bsa, ES, 2-p 20 ml/m^2 16 - 34 Mitral valve Value Reference Mitral E-wave peak velocity 0.6 m/sec Mitral A-wave peak velocity 0.3 m/sec Mitral deceleration time 201 ms Mitral E/A ratio, peak 2.1 Right atrium Value Reference RA area, ES, A4C 13 cm^2 10 - 18 Systemic veins Value Reference Estimated RAP 3 mm Hg Right ventricle Value Reference RV ID, minor axis, ED, A4C base 3.0 cm 2.5 - 4.1 RV ID, minor axis, ED, A4C mid 2.7 cm 1.9 - 3.5 TAPSE, 2D 2.8 cm 1.7 - 3.1 RV s', lateral 10.8 cm/sec 6.0 - 13.4 Legend: (L) and (H) damaris values outside specified reference range. Electronically signed by Martín Freedman MD 07/20/2019 10:58 Prior Signatures: [facility], [place] TRANSTHORACIC ECHOCA RDIOGRAM PATIENT: Delmy Buchanan STUDY DATE: 07/20/2019 Michelle : 1980 AGE: 38 HT/WT: 167.6 cm (66 94.4 kg in) (207.6 lb) GENDER: F BP: 138 / 90 LOCATION: [facility] PATIENT Inpatient [facility] STATUS: *ORDERING PHYSICIAN: * Lisa Gomes *FELLOW: * Mari Arredondo *READING PHYSICIAN: * Jasmina, *VENEER DRIER FEEDER: * Maria Elena Benson MD [facility] INDICATIONS: Stroke. CONCLUSIONS SUMMARY: 1. Left ventricle: Systolic function is normal by the biplane method of disks. The estimated ejection fraction is 64%. There are no regional wall motion abnormalities. Left ventricular diastolic function parameters are normal. 2. Right ventricle: Systolic function is normal. Right ventricular systolic pressure is within the normal range. 3. Atrial septum: Color Doppler shows no shunt. There is no evidence of right to left shunting with injection of agitated saline contrast. 4. No significant valve disease. 5. No source of embolism is identified. STUDY DATA: Complete transthoracic echocardiogram. Procedure: Image quality was good. The study was technically limited due to poor acoustic window availability and respiratory interference. Intravenous imaging enhancement (Definity) was administered to opacify the chamber. Definity lot #: [id number]. M-mode, complete 2D, complete spectral Doppler, and color flow Doppler images were acquired and archived for permanent storage and are available for subsequent review. Study status: Routine. Patient status: Inpatient. ECG RHYTHM: NSR FINDINGS LEFT VENTRICLE: Well visualized. The cavity size is normal. Wall thickness is normal. There is no hypertrophy. Systolic function is normal by the biplane method of disks. The estimated ejection fraction is 64%. There are no regional wall motion abnormalities. Left ventricular diastolic function parameters are normal. RIGHT VENTRICLE: The cavity size is normal. Systolic function is normal. Right ventricular systolic pressure is within the normal range. VENTRICULAR SEPTUM: There is no evidence of a ventricular septal defect. LEFT ATRIUM: The atrium is normal in size. RIGHT ATRIUM: The atrium is normal in size. ATRIAL SEPTUM: Color Doppler shows no shunt. There is no evidence of right to left shunting with injection of agitated saline contrast. MITRAL VALVE: Structurally normal valve. Doppler: There is no evidence for stenosis. There is trivial, less than 1+ regurgitation. AORTIC VALVE: Structurally normal valve. Trileaflet; normal thickness leaflets. Doppler: There is no significant regurgitation. The peak systolic gradient is 6 mm Hg. The peak systolic velocity is 1.2 m/sec. TRICUSPID VALVE: No significant valve disease. Doppler: There is trivial, less than 1+ regurgitation. PULMONIC VALVE: No significant valve disease. Doppler: There is trivial, less than 1+ regurgitation. AORTA: The aorta is poorly visualized, normal, and normal size. PULMONARY ARTERY: Main pulmonary artery: Normal. PERICARDIUM: There is no pericardial effusion. SYSTEMIC VEINS: Inferior vena cava: The vessel is normal. The IVC collapses by greater than 50% with inspiration. Measurements Value Reference Aortic root ID 3.0 cm <3.8 Aortic root ID, STJ, ED 2.9 cm 2.0 - 3.2 Aortic root ID/bsa, STJ, ED 1.4 cm/m^2 1.1 - 1.9 Value Reference Ascending aorta ID, A-P, S 3.4 cm Ascending aorta ID/bsa, A-P, S 1.6 cm/m^2 Left ventricle Value Reference LV ID, ED 4.4 cm 3.8 - 5.2 LV ID, ES 3.1 cm 2.2 - 3.5 LV ID/bsa, ED (L) 2.1 cm/m^2 2.3 - 3.1 LV ID/bsa, ES 1.5 cm/m^2 1.3 - 2.1 LV PW thickness, ED 0.8 cm 0.6 - 0.9 LV PW/LV ID ratio, ED 0.18 LV wall mass 121 g 66 - 150 LV wall mass/bsa 57 g/m^2 44 - 88 Stroke volume/bsa, 1-p A2C 33.9 ml/m^2 LV end-diastolic volume, 1-p A4C 117 ml 48 - 140 LV end-systolic volume, 1-p A4C 35 ml 12 - 60 LV end-diastolic volume, 2-p (H) 119 ml 46 - 106 LV end-systolic volume, 2-p (H) 43 ml 14 - 42 LV ejection fraction, 2-p 64 % 54 - 74 LV E/e', lateral 6.5 LV E/e', medial 7.7 LV E/e', average 7.1 Ventricular septum Value Reference IVS thickness, ED 0.9 cm 0.6 - 0.9 LVOT Value Reference LVOT ID, A-P 2.1 cm LVOT mean velocity, S 0.7 m/sec LVOT peak gradient, S 4 mm Hg Stroke volume (SV), LVOT DP 74 ml Stroke index (SV/bsa), LVOT DP 35 ml/m^2 Aortic valve Value Reference Aortic valve peak velocity, S 1.2 m/sec Aortic peak gradient, S 6 mm Hg Left atrium Value Reference LA volume/bsa, ES, 2-p 20 ml/m^2 16 - 34 Mitral valve Value Reference Mitral E-wave peak velocity 0.6 m/sec Mitral A-wave peak velocity 0.3 m/sec Mitral deceleration time 201 ms Mitral E/A ratio, peak 2.1 Right atrium Value Reference RA area, ES, A4C 13 cm^2 10 - 18 Systemic veins Value Reference Estimated RAP 3 mm Hg Right ventricle Value Reference RV ID, minor axis, ED, A4C base 3.0 cm 2.5 - 4.1 RV ID, minor axis, ED, A4C mid 2.7 cm 1.9 - 3.5 TAPSE, 2D 2.8 cm 1.7 - 3.1 RV s', lateral 10.8 cm/sec 6.0 - 13.4 Legend: (L) and (H) damaris values outside specified reference range. Electronically signed by Martín Freedman MD 07/20/2019 10:58 Prior Signatures: [facility], [facility] REPORTon 07-20-2019 Chad Lr MD - 1:17 PM EDT PATIENT: DELMY BUCHANAN DATE OF SERVICE: 07/20/2019 ORDER NUMBER: DATE OF : 1980 AGE: 38 ADMITTING PHYSICIAN: Mireille Gallegos DO ATTENDING PHYSICIAN: Mireille Gallegos DO DICTATING PHYSICIAN: Chad Lr MD EEG REFERRING PHYSICIAN: Mireille Gallegos D.O. TEST #: Test - Routine Inpatient 20-Minute EEG: Indication: This EEG is being requested to diagnose seizures. Findings: Posterior dominant rhythm was present at 10 Hz medium voltage, reactive to eye opening and eye closure, symmetric over the occipital regions. Background appears normal. Sleep was present and normal. Drowsiness was present and normal. Photic stimulation was performed with a good bilateral symmetric occipital driving response. Hyperventilation was deferred. Diagnosis: Normal. Impression: This EEG is normal during wakefulness, drowsiness, and sleep. No clear seizures or epileptiform activity were seen. Diskriter Job ID: [id number] DOD:07/20/2019 12:28 P RZ/dsk DOT:07/20/2019 01:17 P Job Number: [id number] Document Number: [id number] ###### cc: Mireille Gallegos DO [facility] [address] [place] [address] EKG 12 lead unless once done in the EDon 07-20-2019 Abdullahi, [facility] Incoming Cardiology Results From [facility]/[place] - 07/20/2019 4:48 PM EDT [facility] Test Date: 2019-07-20 Pat Name: Delmy Buchanan Department: 1AT2 Room: T204 Gender: F Park Attendant: [place] : 1980 Requested By: LISA GOMES Order Number: [id number] Reading MD: Ney Sexton Measurements Intervals Gilbert Rate: 63 P: 28 DE: 139 QRS: 7 QRSD: 89 T: 21 QT: 406 QTc: 416 Interpretive Statements Sinus rhythm Abnormal R-wave progression, early transition Electronically Signed On 07-20-2019 16:47:17 EDT by Ney Smith Help[employer] [facility], AGATHA [facility] Test Date: 2019-07-20 Pat Name: Delmy Buchanan Department: 1AT2 Room: [facility] Gender: F Park Attendant: [place] : 1980 Requested By: LISA GOMES Order Number: [id number] Reading MD: Ney Sexton Measurements Intervals Gilbert Rate: 63 P: 28 DE: 139 QRS: 7 QRSD: 89 T: 21 QT: 406 QTc: 416 Interpretive Statements Sinus rhythm Abnormal R-wave progression, early transition Electronically Signed On 07-20-2019 16:47:17 EDT by Ney Sexton [place], [place] Echo Complete w/wo Contrasto n 07-20-2019 Echo Complete w/wo Contrast Patient Name: DELMY BUCHANAN Ultrasound Exam Date/Time 07/20/2019 09:15:12 EDT Exam Echo Complete w/wo Contrast Ordering Physician LISA GOMES Accession Number [id number] Reason For Exam stroke Report TRANSTHORACIC ECHOCARDIOGRAM PATIENT: Delmy Buchanan STUDY DATE: 07/20/2019 Michelle : 1980 AGE: 38 HT/WT: 167.6 cm (66 94.4 kg in) (207.6 lb) GENDER: F BP: 138 / 90 LOCATION: [facility] PATIENT Inpatient [facility] STATUS: *ORDERING PHYSICIAN: * Lisa Gomes *FELLOW: * Mari Arredondo *READING PHYSICIAN: * Jasmina, *VENEER DRIER FEEDER: * Maria Elena Benson MD [facility] INDICATIONS: Stroke. CONCLUSIONS SUMMARY: 1. Left ventricle: Systolic function is normal by the biplane method of disks. The estimated ejection fraction is 64%. There are no regional wall motion abnormalities. Left ventricular diastolic function parameters are normal. 2. Right ventricle: Systolic function is normal. Right ventricular systolic pressure is within the normal range. 3. Atrial septum: Color Doppler shows no shunt. There is no evidence of right to left shunting with injection of agitated saline contrast. 4. No significant valve disease. 5. No source of embolism is identified. STUDY DATA: Complete transthoracic echocardiogram. Procedure: Image quality was good. The study was technically limited due to poor acoustic window availability and respiratory interference. Intravenous imaging enhancement (Definity) was administered to opacify the chamber. Definity lot #: [id number]. M-mode, complete 2D, complete spectral Doppler, and color flow Doppler images were acquired and archived for permanent storage and are available for subsequent review. Study status: Routine. Patient status: Inpatient. ECG RHYTHM: NSR FINDINGS LEFT VENTRICLE: Well visualized. The cavity size is normal. Wall thickness is normal. There is no hypertrophy. Systolic function is normal by the biplane method of disks. The estimated ejection fraction is 64%. There are no regional wall motion abnormalities. Left ventricular diastolic function parameters are normal. RIGHT VENTRICLE: The cavity size is normal. Systolic function is normal. Right ventricular systolic pressure is within the normal range. VENTRICULAR SEPTUM: There is no evidence of a ventricular septal defect. LEFT ATRIUM: The atrium is normal in size. RIGHT ATRIUM: The atrium is normal in size. ATRIAL SEPTUM: Color Doppler shows no shunt. There is no evidence of right to left shunting with injection of agitated saline contrast. MITRAL VALVE: Structurally normal valve. Doppler: There is no evidence for stenosis. There is trivial, less than 1+ regurgitation. AORTIC VALVE: Structurally normal valve. Trileaflet; normal thickness leaflets. Doppler: There is no significant regurgitation. The peak systolic gradient is 6 mm Hg. The peak systolic velocity is 1.2 m/sec. TRICUSPID VALVE: No significant valve disease. Doppler: There is trivial, less than 1+ regurgitation. PULMONIC VALVE: No significant valve disease. Doppler: There is trivial, less than 1+ regurgitation. AORTA: The aorta is poorly visualized, normal, and normal size. PULMONARY ARTERY: Main pulmonary artery: Normal. PERICARDIUM: There is no pericardial effusion. SYSTEMIC VEINS: Inferior vena cava: The vessel is normal. The IVC collapses by greater than 50% with inspiration. Measurements Value Reference Aortic root ID 3.0 cm <3.8 Aortic root ID, STJ, ED 2.9 cm 2.0 - 3.2 Aortic root ID/bsa, STJ, ED 1.4 cm/m^2 1.1 - 1.9 Value Reference Ascending aorta ID, A-P, S 3.4 cm Ascending aorta ID/bsa, A-P, S 1.6 cm/m^2 Left ventricle Value Reference LV ID, ED 4.4 cm 3.8 - 5.2 LV ID, ES 3.1 cm 2.2 - 3.5 LV ID/bsa, ED (L) 2.1 cm/m^2 2.3 - 3.1 LV ID/bsa, ES 1.5 cm/m^2 1.3 - 2.1 LV PW thickness, ED 0.8 cm 0.6 - 0.9 LV PW/LV ID ratio, ED 0.18 LV wall mass 121 g 66 - 150 LV wall mass/bsa 57 g/m^2 44 - 88 Stroke volume/bsa, 1-p A2C 33.9 ml/m^2 LV end-diastolic volume, 1-p A4C 117 ml 48 - 140 LV end-systolic volume, 1-p A4C 35 ml 12 - 60 LV end-diastolic volume, 2-p (H) 119 ml 46 - 106 LV end-systolic volume, 2-p (H) 43 ml 14 - 42 LV ejection fraction, 2-p 64 % 54 - 74 LV E/e', lateral 6.5 LV E/e', medial 7.7 LV E/e', average 7.1 Ventricular septum Value Reference IVS thickness, ED 0.9 cm 0.6 - 0.9 LVOT Value Reference LVOT ID, A-P 2.1 cm LVOT mean velocity, S 0.7 m/sec LVOT peak gradient, S 4 mm Hg Stroke volume (SV), LVOT DP 74 ml Stroke index (SV/bsa), LVOT DP 35 ml/m^2 Aortic valve Value Reference Aortic valve peak velocity, S 1.2 m/sec Aortic peak gradient, S 6 mm Hg Left atrium Value Reference LA volume/bsa, ES, 2-p 20 ml/m^2 16 - 34 Mitral valve Value Reference Mitral E-wave peak velocity 0.6 m/sec Mitral A-wave peak velocity 0.3 m/sec Mitral deceleration time 201 ms Mitral E/A ratio, peak 2.1 Right atrium Value Reference RA area, ES, A4C 13 cm^2 10 - 18 Systemic veins Value Reference Estimated RAP 3 mm Hg Right ventricle Value Reference RV ID, minor axis, ED, A4C base 3.0 cm 2.5 - 4.1 RV ID, minor axis, ED, A4C mid 2.7 cm 1.9 - 3.5 TAPSE, 2D 2.8 cm 1.7 - 3.1 RV s', lateral 10.8 cm/sec 6.0 - 13.4 Legend: (L) and (H) damaris values outside specified reference range. Electronically signed by Martín Freedman MD 07/20/2019 10:58 Prior Signatures: Final Dictated: 07/20/2019 10:58 am Dictating Physician: Lino FREEDMAN OTFRIED Signed Date and Time: 07/20/2019 10:58 am Signed by: Lino FREEDMAN OTFRIED Normal [facility] Glucose,Bedsideon 07-20-2019 Glucose [Mass/Vol] 175 mg/dL High [address] Comment on above: Result Comment: Test performed by glucose meter. Results may be 10%-15% lower than serum/plasma values. (CLIA ID [id number]) Performed By: #### B GLU #### [address] [address] [place] [address] Glucose [Mass/Vol] 154 mg/dL [facility] [address] Comment on above: Result Comment: Test performed by glucose meter. Results may be 10%-15% lower than serum/plasma values. (CLIA ID [id number]) Performed By: #### B GLU #### [facility] [address] [place] [address] Glucose [Mass/Vol] 161 mg/dL High [address] Comment on above: Result Comment: Test performed by glucose meter. Results may be 10%-15% lower than serum/plasma values. (CLIA ID [id number]) Performed By: #### B GLU #### [facility] [address] [place] [address] Hemoglobin A1Con 07-20-2019 HbA1c (Bld) [Mass fraction] 189 mg/dL Normal [facility] Comment on above: Performed By: #### B GLU #### [address] [address] [place], [place] HbA1c (Bld) [Mass fraction] 8.2 % High 4.0-5.7 [facility] Comment on above: Result Comment: --Hg bA1C levels may not be accurate in patients who have renal disease, received recent blood transfusions, are anemic, or who have dyshemoglobinemia. Performed By: #### B GLU #### [address] [address] [place], [place] Hemoglobin A1con 07-20-2019 eAG 189 mg/dL [place], [place] HbA1c (Bld) [Mass fraction] 8.2 % High 4 - 5.7 % [place], [place] Comment on above: --HgbA1C levels may not be accurate in patients who have renal disease, received recent blood transfusions, are anemic, or who have dyshemoglobinemia. Interpretation and review of laboratory results Abnormal [place], [place] Test Performed by [facility], [address] [place] [address] [place], [place] Hemogram w/ Autodiffon 07-19 Abs Baso Cnt 0.1 10*3/uL Normal 0.0-0.2 [facility] Comment on above: Performed By: #### B GLU #### [address] [address] [place], [place] Abs Neutrophile Cnt 3.0 10*3/uL Normal 1.8-7.0 [facility] Comment on above: Performed By: #### B GLU #### [address] Basophils/100 WBC (Bld) 1.0 % Normal 0.0-2.0 [facility] Comment on above: Performed By: #### B GLU #### [address] [address] [place], [place] Eosinophils (Bld) [#/Vol] 0.5 10*3/uL Normal 0.0-0.5 [facility] Comment on above: Performed By: #### B GLU #### [facility] [address] [place] [address] Eosinophils/100 WBC (Bld) 7.0 % High 1.0-6.0 [facility] Comment on above: Performed By: #### B GLU #### [facility] [address] [place] [address] Erythrocyte distribution width (RBC) [Ratio] 15.6 % High 11.5-14.5 [facility] Comment on above: Performed By: #### B GLU #### [address] [address] [place], [place] Granulocytes/100 WBC (Bld) 44.1 % Normal 40.0-80.0 [facility] Comment on above: Performed By: #### B GLU #### [address] [address] [place], [place] Hematocrit (Bld) [Volume fraction] 42.1 % Normal 35.0-47.0 [facility] Comment on above: Performed By: #### B GLU #### [address] [address] [place], [place] Hemoglobin (Bld) [Mass/Vol] 14.0 g/dL Normal 11.7-16.0 [facility] Comment on above: Performed By: #### B GLU #### [address] [address] [place], [place] Lymphocytes (Bld) [#/Vol] 2.7 10*3/uL Normal 1.0-4.3 [facility] Comment on above: Performed By: #### B GLU #### [address] [address] [place] [address] Lymphocytes/100 WBC (Bld) 40.2 % High 20.0-40.0 [facility] Comment on above: Performed By: #### B GLU #### [address] [address] [place], [place] MCH (RBC) [Entitic mass] 27.1 pg Normal 26.0-34.0 [facility] Comment on above: Performed By: #### B GLU #### [facility] [address] [place], [place] MCHC (RBC) [Mass/Vol] 33.1 % Normal 32.0-36.0 [facility] Comment on above: Performed By: #### B GLU #### [facility] [address] [place], [place] MCV (RBC) [Entitic vol] 81.6 fL Normal 79.0-98.0 [facility] Comment on above: Performed By: #### B GLU #### [facility] [address] [place], [place] Monocytes (Bld) [#/Vol] 0.5 10*3/uL Normal 0.0-0.8 [facility] Comment on above: Performed By: #### B GLU #### [address] [address] [place], [place] Monocytes/100 WBC (Bld) 7.7 % Normal 2.0-10.0 [facility] Comment on above: Performed By: #### B GLU #### [address] [address] [place], [place] Platelet mean volume (Bld) [Entitic vol] 8.5 fL Normal 7.4-10.4 [facility] Comment on above: Performed By: #### B GLU #### [address] [address] [address], [place] Platelets (Bld) [#/Vol] 243 10*3/uL Normal 140-440 [facility] Comment on above: Performed By: #### B GLU #### [address] [address] [address] RBC (Bld) [#/Vol] 5.16 10*6/uL Normal 3.80-5.20 [facility] Comment on above: Performed By: #### B GLU #### [address] [address] [address], [place] WBC (Bld) [#/Vol] 6.7 10*3/uL Normal 3.6-10.7 [facility] Comment on above: Performed By: #### B GLU #### [facility] [address] [place] [address] KETONES, BLOODon 07-20-2019 Ketones, Blood Negative Negative mg/dL [place], [place] Test Performed by [facility], [address] [place] [address] [facility], [place] Ketones, Quant Bloodon 07-19 Ketones, Quant Blood Negative Normal Negative [facility] Comment on above: Performed By: #### B GLU #### [facility] [address] [place] [address] Lipid Panelon 07-20-2019 Cholesterol in HDL [Mass/Vol] 30 mg/dL Low 40-60 [facility] Comment on above: Performed By: #### B GLU #### [facility] [address] [place] [address] Cholesterol.total/ Cholesterol in HDL [Mass ratio] 7 Normal [facility] Comment on above: Result Comment: Ref Range: < 3 Low Risk for CHD 3-6 Mod Risk for CHD > 6 High Risk for CHD Performed By: #### B GLU #### [address] [address] [place] [address] Protein [Mass/Vol] 112 mg/dL Abnormal <100 [facility] Comment on above: Performed By: #### B GLU #### [address] [address] [place] [address] Triglyceride [Mass/Vol] 372 mg/dL Abnormal <150 [facility] Comment on above: Performed By: #### B GLU #### [address] [address] [place] [address] Cholesterol [Mass/Vol] 216 mg/dL Abnormal < 200 [place], [place] Comment on above: Performed By: #### B GLU #### [facility] [address] [place] [address] Lipid panel - fastingon 07-08 Cholesterol in HDL [Mass/Vol] 30 mg/dL Low 40 - 60 mg/dL [place], [place] Cholesterol in LDL [Mass/Vol] 112 mg/dL Abnormal <100 [place] Cholesterol.total/ Cholesterol in HDL [Mass ratio] 7 {ratio} [facility] [place] [place] Comment on above: Ref Range: < 3 Low Risk for CHD 3-6 Mod Risk for CHD > 6 High Risk for CHD Triglyceride [Mass/Vol] 372 mg/dL Abnormal <150 [place], [place] Magnesiumon 07-20-2019 Magnesium [Mass/Vol] 1.7 mg/dL Normal 1.6-2.3 [facility] Comment on above: Result Comment: Slig htly hemolysed, interpret with caution. Performed By: #### B GLU #### [facility] [address] [place] [address] Magnesium [Mass/Vol] 1.7 mg/dL 1.6 - 2.3 mg/dL [place], [place] Comment on above: Slightly hemolysed, interpret with caution. Otheron 07-20-2019 Interpretation and review of laboratory results Abnormal [facility] [place], [place] Test Performed by [facility], [facility] [address] [place], [place] [id number] [place] [address] Interpretation and review of laboratory results Abnormal [facility] [place], [place] Test Performed by [employer] [facility], [facility] [place] [address] [place], [place] POCT Glucoseon 07-20-2019 Glucose [Mass/Vol] 175 mg/dL High 70 - 100 mg/dL [place] Comment on above: Test performed by gl ucose meter. Results may be 10%-15% lower than serum/plasma values. (CLIA ID [id number]) Interpretation and review of laboratory results Abnormal [facility], [place] Test Performed by [employer] [facility], [address] [place] [address] [place], [place] Glucose [Mass/Vol] 154 mg/dL High 70 - 100 mg/dL [place] Comment on above: Test performed by gl ucose meter. Results may be 10%-15% lower than serum/plasma values. (CLIA ID [id number]) Interpretation and review of laboratory results Abnormal [facility] [place] Test Performed by [employer] [facility], [address] [place] [address] [place], [place] Glucose [Mass/Vol] 161 mg/dL High 70 - 100 mg/dL [place], [place] Comment on above: Test performed by gl ucose meter. Results may be 10%-15% lower than serum/plasma values. (CLIA ID [id number]) Interpretation and review of laboratory results Abnormal [place], [place] Test Performed by [facility], [facility] [place] [address] [place], [place] Phosphoruson 07-20-2019 Phosphate [Mass/Vol] 5.1 mg/dL High 2.5-4.5 [facility] Comment on above: Performed By: #### B GLU #### [facility] [address] [place], [place] Phosphate [Mass/Vol] 5.1 mg/dL High 2.5 - 4.5 mg/dL [place] Troponinon 07-20-2019 Troponin I.cardiac [Mass/Vol] ng/mL 0 - 0.034 ng/mL [place], [place] Comment on above: . Test Performed by [facility], [facility] [address] [place], [place] [id number] [place] [address] Troponin I.cardiac [Mass/Vol] ng/mL 0 - 0.034 ng/mL [place], [place] Comment on above: . Troponin Ion 07-20-2019 Troponin I.cardiac [Mass/Vol] ng/mL Normal 0.000-0.034 [facility] Comment on above: Result Comment: . Performed By: #### T ROPN #### [facility] [address] [place], [place] Troponin I.cardiac [Mass/Vol] ng/mL Normal 0.000-0.034 [facility] Comment on above: Result Comment: . Performed By: #### B GLU #### [facility] [address] [place], [place] ED Clinical Summaryon 2019 ED Clinical Summary [address] [address] ED Clinical Summary Person Information Name: DELMY BUCHANAN [place] Age: 38 Years : 1980 Sex: Female Language: Greenlandic PCP: Shari Alonzo DO Marital Status: Visit Id: Visit Reason: Back pain; NUMBNESS BILATERAL LEGS Speciality: Acuity: 3 Enc Type: Emergency Med Service: Emergency Arrival: 06/06/2019 21:19:14 Discharge: 06/07/2019 01:10:51 LOS: 000 03:51 Checkin: 06/06/2019 21:19:14 Checkout: 06/07/2019 01:10:51 Dispo Type: Home (Routine DC) EVENTS: Event Name Event Status Request Date/Time Start Date/Time Complete Date/Time Arrive Complete 06/06/2019 21:19:14 06/06/2019 21:19:14 06/06/2019 21:19:14 Document Home Meds Request 06/06/2019 21:19:14 Triage Complete 06/06/2019 21:19:14 06/06/2019 21:25:44 06/06/2019 21:25:44 Dr Exam Complete 06/06/2019 21:19:54 06/06/2019 21:19:54 06/06/2019 21:19:54 Registration Complete 06/06/2019 21:19:54 06/06/2019 21:20:17 06/06/2019 23:29:24 Bed Assign Complete 06/06/2019 21:20:17 06/06/2019 21:20:17 06/06/2019 21:20:17 RN Exam Complete 06/06/2019 21:20:17 06/06/2019 21:29:16 06/06/2019 21:29:16 X-Ray Complete 06/06/2019 21:21:24 06/06/2019 21:44:49 06/06/2019 22:06:08 Meds Admin Complete 06/06/2019 21:21:24 06/06/2019 21:36:27 Dr Exam Complete 06/06/2019 21:26:51 06/06/2019 21:26:51 06/06/2019 21:26:51 Wet Read Complete 06/06/2019 22:06:08 06/06/2019 22:12:24 06/06/2019 22:12:24 Meds Admin Complete 06/06/2019 22:16:52 06/06/2019 22:26:13 Discharge Complete 06/06/2019 22:59:55 06/07/2019 01:11:01 06/07/2019 01:11:01 Reg Complete Request 06/06/2019 23:29:24 Reg Bed Request Complete 06/06/2019 23:29:24 06/06/2019 23:29:24 06/06/2019 23:29:24 Meds Admin Complete 06/06/2019 23:49:34 06/07/2019 00:07:36 Transfer Complete 06/07/2019 01:11:01 06/07/2019 01:11:01 06/07/2019 01:11:01 ADDRESS: [address] [place] [id number] [facility] DOC NOTES: MEDICAL INFORMATION: Prescriptions Given: New Medications Printed Prescriptions methocarbamol (Robaxin-750 oral tablet) 2 Tablets By Mouth 3 times a day for 3 Days. Refills: 0. naproxen (Naprosyn 500 mg Tab) 1 Tablets By Mouth 2 times a day as needed for pain. Refills: 0. PATIENT EDUCATION INFORMATION: Instructions: Back Pain, Adult; Back Exercises Follow up: With: Address: When: Shari Alonzo [address] [place] [address] Business ([employer] In 3 days 06/09/2019 DIAGNOSIS: Back pain; Fall Normal [facility] ED Note-Physicianon 06-07-19 20 ED Note-Physician Basic Information Time Seen: Brayden Ford PA-C 06/06/2019 21:19 Chief Complaint Pt to ED via [facility] for fall on ice around 1900. pt denies LOC/head injury/neck pain. No thinners. pt reports her left leg went numb while driving. History of Present Illness 38-year-old female comes to the ED for evaluation of back pain. Approximately 2 hours prior to arrival the patient slipped on ice, falling landing directly on her buttocks. She did not strike her head, no loss of consciousness. She denies any head, neck, chest or abdominal pain. She presents complaining of lumbar back pain. She complains of paresthesias to bilateral lower extremities. No social abdominal pain. No difficulty with bowel or bladder function. No urinary incontinence. Review of Systems A 10 point review of systems is negative except as noted above. Medical and Surgical History: Reviewed and noted Social history: Lives at home Tobacco: Denies Physical Exam Vitals & Measurements T: 37.2 ?C (Oral) HR: 85(Peripheral) RR: 18 BP: 142/92 SpO2: 95% HT: 168 cm WT: 99.6 kg BMI: 35.29 Nurses notes and vital signs reviewed and patient is not hypoxic. General: The patient appears well and in no significant distress Patient is resting comfortably, fully immobilized Skin: Warm, dry, no pallor noted. Head: Atraumatic. Neck: No JVD. Nontender, full range of motion Eye: Normal conjunctiva. Ears, Nose, Mouth, and Throat: Moist mucous membranes Cardiovascular: Strong distal pulses. Chest wall: Respiratory: Respirations are nonlabored. Lungs clear to auscultation. Back: Diffuse lumbar tenderness. No bony instability or step-off. No ecchymosis or erythema. Positive straight leg rise bilaterally. No saddle anesthesia. Strong distal pulses and reflexes Musculoskeletal: Normal ROM with no gross deformity. Gastrointestinal: Soft and nontender. Urological: Neurological: Awake and alert. No focal deficits. Follows commands. GCS 15. Psychiatric: Cooperative. Medical Decision Making Imaging shows no acute findings. Patient does have pain rating down her lower extremities but no evidence of neurovascular compromise. She has been up and walking here in the emergency department. She has urinated without any difficulty. She well be discharged home with Bharti Salcido, and is to follow-up with her PCP. Patient was encouraged to return to the ED if symptoms worsen or change. Assessment/Plan Back pain (M54.9: Dorsalgia, unspecified) Fall (W19.XXXA: Unspecified fall, initial encounter) Orders: acetaminophen-oxycodone, 1 tab(s), Tab, Oral, Once, Stop date 06/06/19 22:16:00 EST, STAT, Start date 06/06/19 22:16:00 EST ketorolac, 60 mg = 2 mL, Injection, IntraMuscular, Once, Stop date 06/06/19 21:20:00 EST, STAT, Start date 06/06/19 21:20:00 EST methocarbamol, 1,500 mg = 2 tab(s), Oral, TID, X 3 day(s), # 18 tab(s), Refills(s) 0 naproxen, 500 mg = 1 tab(s), Oral, BID, PRN for pain, # 20 tab(s), Refills(s) 0 orphenadrine, 60 mg = 2 mL, Injection, IntraMuscular, Once, Stop date 06/06/19 21:21:00 EST, STAT, Start date 06/06/19 21:21:00 EST XR Spine Lumbosacral 2 or 3 Views Medications Administered Given ketorolac 60 mg/2 mL Injection, 60 mg, IntraMuscular orphenadrine 30 mg/mL Inj, 60 mg, IntraMuscular Percocet 325 mg-5 mg Tab, 1 tab(s), Oral Disposition Plan Patient Discharge Condition Disposition: Discharged home Condition: Improved and stable Counseled: Patient and/or family were counseled to workup, results, treatment plan and follow-up recommendations Discharge Prescription List Prescriptions Naprosyn 500 mg Tab, 500 mg= 1 tab(s), Oral, BID, PRN Robaxin-750 oral tablet, 1500 mg= 2 tab(s), Oral, TID Follow-up With When Contact Information Shari Alonzo In 3 days 06/09/2019 [place] [id number] [facility] (1) Additional Instructions: Patient Education Back Pain, Adult Back Exercises Attestation Patient seen and evaluated by the physician lens assistant. Attending physician was present in the emergency department and supervised care. This report was transcribed using voice recognition software. Every effort was made to ensure accuracy, however, inadvertently computerized floor broker mistakes may be present. Problem List/Past Medical History Ongoing No qualifying data Historical No qualifying data Medications Inpatient Percocet 325 mg-5 mg Tab, 1 tab(s), Oral, Once Home No active home medications Allergies metFORMIN (Diarrhea) morphine (Muscle spasms of both lower extremities) nortriptyline (arrythmias) sulfa drugs (Hives) Social History Alcohol - Denies Alcohol Use, 06/06/2019 Substance Abuse - Denies Substance Abuse, 06/06/2019 Tobacco - Denies Tobacco Use, 06/06/2019 Lab Results No qualifying data available. Diagnostic Results XR Spine Lumbosacral 2 or 3 Views * Preliminary * 06/06/19 22:45:31 NEGATIVE: No fracture, dislocation or other acute abnormality Read By: Logan PA-C, [facility] Comment on above: Result Comment: Elec tronically Signed By: Brayden Ford PA-C\.br\Date and Time Signed: 06/06/19 23:36 EST\.br\Electronically Co-Signed By: Jhonny Fam DO\.br\Date and Time Co-Signed: 06/07/19 02:05 EST ED Patient Education Noteon 06-07-2019 ED Patient Education Note Back Pain, Adult Low back pain is very common. About 1 in 5 people have back pain.?The cause of low back pain is rarely dangerous. The pain often gets better over time.?About half of people with a sudden onset of back pain feel better in just 2 weeks. About 8 in 10 people feel better by 6 weeks. CAUSES Some common causes of back pain include: ? Strain of the muscles or ligaments supporting the spine. ? Wear and tear (degeneration) of the spinal discs. ? Arthritis. ? Direct injury to the back. DIAGNOSIS Most of the time, the direct cause of low back pain is not known.?However, back pain can be treated effectively even when the exact cause of the pain is unknown.?Answering your caregiver's questions about your overall health and symptoms is one of the most accurate ways to make sure the cause of your pain is not dangerous. If your caregiver needs more information, he or she may order lab work or imaging tests (X-rays or MRIs).?However, even if imaging tests show changes in your back, this usually does not require surgery. HOME CARE INSTRUCTIONS For many people, back pain returns.?Since low back pain is rarely dangerous, it is often a condition that people can learn to manage?on their own. ? Remain active. It is stressful on the back to sit or supervisor costuming one place. Do not sit, drive, or supervisor costuming one place for more than 30 minutes at a time. Take short walks on level surfaces as soon as pain allows.?Try to increase the length of time you walk each day. ? Do not stay in bed.?Resting more than 1 or 2 days can delay your recovery. ? Do not avoid exercise or work.?Your body is made to move.?It is not dangerous to be active, even though your back may hurt.?Your back will likely heal faster if you return to being active before your pain is gone. ? Pay attention to your body when you ?bend and lift. Many people have less discomfort?when lifting if they bend their knees, keep the load close to their bodies,?and avoid twisting. Often, the most comfortable positions are those that put less stress on your recovering back. ? Find a comfortable position to sleep. Use a firm mattress and lie on your side with your knees slightly bent. If you lie on your back, put a pillow under your knees. ? Only take [id number] or prescription medicines as directed by your caregiver. [id number]-[id number] medicines to reduce pain and inflammation are often the most helpful.?Your caregiver may prescribe muscle relaxant drugs.?These medicines help dull your pain so you can more quickly return to your normal activities and healthy exercise. ? Put ice on the injured area. ? Put ice in a plastic bag. ? Place a towel between your skin and the bag. ? Leave the ice on for 15-20 minutes, 03-04 times a day for the first 2 to 3 days. After that, ice and heat may be alternated to reduce pain and spasms. ? Ask your caregiver about trying back exercises and gentle massage. This may be of some benefit. ? Avoid feeling anxious or stressed.?Stress increases muscle tension and can worsen back pain.?It is important to recognize when you are anxious or stressed and learn ways to manage it.?Exercise is a great option. SEEK MEDICAL CARE IF: ? You have pain that is not relieved with rest or medicine. ? You have pain that does not improve in 1 week. ? You have new symptoms. ? You are generally not feeling well. SEEK IMMEDIATE MEDICAL CARE IF: ? You have pain that radiates from your back into your legs. ? You develop new bowel or bladder control problems. ? You have unusual weakness or numbness in your arms or legs. ? You develop nausea or vomiting. ? You develop abdominal pain. ? You feel faint. Document Released: 04/26/2006 Document Revised: 10/25/2012 Document Reviewed: 08/28/2014 ExitCare? Patient Information ?2015 [employer] This information is not intended to replace advice given to you by your health care provider. Make sure you discuss any questions you have with your health care provider. Family Medicine Back Exercises Back exercises help treat and prevent back injuries. The goal of back exercises is to increase the strength of your abdominal and back muscles and the flexibility of your back. These exercises should be started when you no longer have back pain. Back exercises include: ? Pelvic Tilt. Lie on your back with your knees bent. Tilt your pelvis until the lower part of your back is against the floor. Hold this position 5 to 10 sec and repeat 5 to 10 times. ? Knee to Chest. Pull first 1 knee up against your chest and hold for 20 to 30 seconds, repeat this with the other knee, and then both knees. This may be done with the other leg straight or bent, whichever feels better. ? Sit-Ups or Curl-Ups. Bend your knees 90 degrees. Start with tilting your pelvis, and do a partial, slow sit-up, lifting your trunk only 30 to 45 degrees off the floor. Take at least 2 to 3 seconds for each sit-up. Do not do sit-ups with your knees out straight. If partial sit-ups are difficult, simply do the above but with only tightening your abdominal muscles and holding it as directed. ? Hip-Lift. Lie on your back with your knees flexed 90 degrees. Push down with your feet and shoulders as you raise your hips a couple inches off the floor; hold for 10 seconds, repeat 5 to 10 times. ? Back arches. Lie on your stomach, propping yourself up on bent elbows. Slowly press on your hands, causing an arch in your low back. Repeat 3 to 5 times. Any initial stiffness and discomfort should lessen with repetition over time. ? Shoulder-Lifts. Lie face down with arms beside your body. Keep hips and torso pressed to floor as you slowly lift your head and shoulders off the floor. Do not overdo your exercises, especially in the beginning. Exercises may cause you some mild back discomfort which lasts for a few minutes; however, if the pain is more severe, or lasts for more than 15 minutes, do not continue exercises until you see your caregiver. Improvement with exercise therapy for back problems is slow. See your caregivers for assistance with developing a proper back exercise program. Document Released: 06/03/2005 Document Revised: 07/18/2012 Document Reviewed: 02/25/2012 ExitCare? Patient Information ?2015 [employer], [facility]. This information is not intended to replace advice given to you by your health care provider. Make sure you discuss any questions you have with your health care provider. Normal [facility] ED Patient Summaryon 020 ED Patient Summary (Inserted Image. Moriah ble to display) [address] [address] Patient Discharge Instructions Person Information Name: DELMY BUCHANAN Age: 38 Years Arrival Date: 06/06/2019 21:19:14 Discharge Diagnosis: Back pain; Fall Primary Care Physician: Shari Alonzo DO Provider Information Primary Provider: Jhonny Fam DO Advanced Final Expense Agent:Brayden Ford PA-C The exam and treatment you received in the Emergency Department were for an urgent problem and are not intended as complete care. It is important that you follow up with a doctor, nurse practitioner, or physician?s lens assistant for ongoing care. If your symptoms become worse or you do not improve as expected and you are unable to reach your usual health care provider, you should return to the Emergency Department. We are available 24 hours a day. DELMY BUCHANAN has been given the following list of patient education materials, prescriptions and follow-up instructions: Follow-up Instructions: With: Address: When: Shari Alonzo [address] [place] [address] Business (1) In 3 days 06/09/2019 In the event that this physician does not participate in your insurance network, please consult with your insurance company to find a nearby participating provider. Patient Education Materials: Back Pain, Adult; Back Exercises A MESSAGE TO ALL PATIENTS REGARDING OPIOIDS PRESCRIPTION OPIOIDS: WHAT YOU NEED TO KNOW Prescription opioids can be used to help relieve eduyvdss-we-ftjpdt pain and are often prescribed following a surgery or injury, or for certain health conditions. These medications can be an important part of the treatment but also come with serious risks. It is important to work with your healthcare provider to make sure you are getting the safest, most effective care. WHAT ARE THE RISKS AND SIDE EFFECTS OF OPIOID USE? Prescription opioids carry serious risks of addiction and overdose, especially with prolonged use. An opioid overdose, often marked by slowed breathing, can cause sudden . The use of prescription opioids can have a number of side effects as well, even when taken as directed: ? Tolerance?meaning you might need to take more of the medication for the same pain relief ? Physical dependence?meaning you have symptoms of withdrawal when a medication is stopped ? Increased sensitivity to pain ? Constipation ? Nausea, vomiting, and dry mouth ? Sleepiness and dizziness ? Confusion ? Depression ? Low levels of testosterone that can result in lower sex drive, energy, and strength ? Itching and sweating RISKS ARE GREATER WITH: ? History of drug misuse, substance use disorder, or overdose ? Mental health conditions (such as depression or anxiety) ? Sleep apnea ? Older age (65 years and older) ? Avoid alcohol while taking prescription opioids. Also, unless specifically advised by your health care provider, medications to avoid include: ? Benzodiazepines (such as Xanax or Valium) ? Muscle relaxants (such as Soma or Flexeril) ? Hypnotics (such as Ambien or Lunesta) ? Other prescription opioids KNOW YOUR OPTIONS Talk to your health care provider about ways to manage your pain that don?t involve prescription opioids. Some of these options may actually work better and have fewer risks and side effects. Options may include: ? Pain relievers such as acetaminophen, ibuprofen, and naproxen ? Some medication that are also used for depression or seizures ? Physical therapy and exercise ? Cognitive behavioral therapy, a psychological, goal-directed approach, in which patients learn how to modify physical, behavioral, and emotional triggers of pain and stress. IF YOU ARE PRESCRIBED OPIOIDS FOR PAIN: ? Never take opioids in greater amounts or more often than prescribed. ? Follow up with your primary health care provider. o Work together to create a plan on how to manage your pain. o Talk about ways to help manage your pain that don?t involve prescription opioids. o Talk about any and all concerns and side effects. ? Help prevent misuse and abuse o Never sell or share prescription opioids. o Never use another person?s prescription opioids. ? Store prescription opioids in a secure place and out of reach of others (this may include visitors, children, friends, and family). ? Safely dispose of unused prescription opioids: Find your community drug take-back program or your pharmacy mail-back program, or flush them down the toilet, following guidance from the Food and Drug Administration (www.fda.gov/Drugs/Resources ForYou). ? Visit www.cdc.gov/drugoverdose to learn about the risks of opioids abuse and overdose. ? If you believe you may be struggling with addiction, tell your health direct care worker and ask for guidance or call [facility]?S National Helpline at 1-988-882-SVHM. b Source: US Department of Health and Human Services/Center for Disease Control & Prevention [facility] Medications Given: Medication Dose Route ketorolac 60.00 mg IntraMuscular Right Deltoid orphenadrine 60.00 mg IntraMuscular Left Deltoid acetaminophen-oxycodone 1.00 tab(s) Oral acetaminophen-oxycodone 1.00 tab(s) Oral Medication Information: New Medications Printed Prescriptions methocarbamol (Robaxin-750 oral tablet) 2 Tablets By Mouth 3 times a day for 3 Days. Refills: 0. naproxen (Naprosyn 500 mg Tab) 1 Tablets By Mouth 2 times a day as needed for pain. Refills: 0. Comment: Pharmacy Information: Other: [facility] [place] Thank you for choosing [facility] Patient Education Materials: Back Pain, Adult Low back pain is very common. About 1 in 5 people have back pain.?The cause of low back pain is rarely dangerous. The pain often gets better over time.?About half of people with a sudden onset of back pain feel better in just 2 weeks. About 8 in 10 people feel better by 6 weeks. CAUSES Some common causes of back pain include: ? Strain of the muscles or ligaments supporting the spine. ? Wear and tear (degeneration) of the spinal discs. ? Arthritis. ? Direct injury to the back. DIAGNOSIS Most of the time, the direct cause of low back pain is not known.?However, back pain can be treated effectively even when the exact cause of the pain is unknown.?Answering your caregiver's questions about your overall health and symptoms is one of the most accurate ways to make sure the cause of your pain is not dangerous. If your caregiver needs more information, he or she may order lab work or imaging tests (X-rays or MRIs).?However, even if imaging tests show changes in your back, this usually does not require surgery. HOME CARE INSTRUCTIONS For many people, back pain returns.?Since low back pain is rarely dangerous, it is often a condition that people can learn to manage?on their own. ? Remain active. It is stressful on the back to sit or supervisor costuming one place. Do not sit, drive, or supervisor costuming one place for more than 30 minutes at a time. Take short walks on level surfaces as soon as pain allows.?Try to increase the length of time you walk each day. ? Do not stay in bed.?Resting more than 1 or 2 days can delay your recovery. ? Do not avoid exercise or work.?Your body is made to move.?It is not dangerous to be active, even though your back may hurt.?Your back will likely heal faster if you return to being active before your pain is gone. ? Pay attention to your body when you ?bend and lift. Many people have less discomfort?when lifting if they bend their knees, keep the load close to their bodies,?and avoid twisting. Often, the most comfortable positions are those that put less stress on your recovering back. ? Find a comfortable position to sleep. Use a firm mattress and lie on your side with your knees slightly bent. If you lie on your back, put a pillow under your knees. ? Only take gonj-udz-mstgzeg or prescription medicines as directed by your caregiver. Ytep-kfs-kkrgjbn medicines to reduce pain and inflammation are often the most helpful.?Your caregiver may prescribe muscle relaxant drugs.?These medicines help dull your pain so you can more quickly return to your normal activities and healthy exercise. ? Put ice on the injured area. ? Put ice in a plastic bag. ? Place a towel between your skin and the bag. ? Leave the ice on for 15-20 minutes, 03-04 times a day for the first 2 to 3 days. After that, ice and heat may be alternated to reduce pain and spasms. ? Ask your caregiver about trying back exercises and gentle massage. This may be of some benefit. ? Avoid feeling anxious or stressed.?Stress increases muscle tension and can worsen back pain.?It is important to recognize when you are anxious or stressed and learn ways to manage it.?Exercise is a great option. SEEK MEDICAL CARE IF: ? You have pain that is not relieved with rest or medicine. ? You have pain that does not improve in 1 week. ? You have new symptoms. ? You are generally not feeling well. SEEK IMMEDIATE MEDICAL CARE IF: ? You have pain that radiates from your back into your legs. ? You develop new bowel or bladder control problems. ? You have unusual weakness or numbness in your arms or legs. ? You develop nausea or vomiting. ? You develop abdominal pain. ? You feel faint. Document Released: 04/26/2006 Document Revised: 10/25/2012 Document Reviewed: 08/28/2014 ExitCare? Patient Information ?2015 [employer] This information is not intended to replace advice given to you by your health care provider. Make sure you discuss any questions you have with your health care provider. Back Exercises Back exercises help treat and prevent back injuries. The goal of back exercises is to increase the strength of your abdominal and back muscles and the flexibility of your back. These exercises should be started when you no longer have back pain. Back exercises include: ? Pelvic Tilt. Lie on your back with your knees bent. Tilt your pelvis until the lower part of your back is against the floor. Hold this position 5 to 10 sec and repeat 5 to 10 times. ? Knee to Chest. Pull first 1 knee up against your chest and hold for 20 to 30 seconds, repeat this with the other knee, and then both knees. This may be done with the other leg straight or bent, whichever feels better. ? Sit-Ups or Curl-Ups. Bend your knees 90 degrees. Start with tilting your pelvis, and do a partial, slow sit-up, lifting your trunk only 30 to 45 degrees off the floor. Take at least 2 to 3 seconds for each sit-up. Do not do sit-ups with your knees out straight. If partial sit-ups are difficult, simply do the above but with only tightening your abdominal muscles and holding it as directed. ? Hip-Lift. Lie on your back with your knees flexed 90 degrees. Push down with your feet and shoulders as you raise your hips a couple inches off the floor; hold for 10 seconds, repeat 5 to 10 times. ? Back arches. Lie on your stomach, propping yourself up on bent elbows. Slowly press on your hands, causing an arch in your low back. Repeat 3 to 5 times. Any initial stiffness and discomfort should lessen with repetition over time. ? Shoulder-Lifts. Lie face down with arms beside your body. Keep hips and torso pressed to floor as you slowly lift your head and shoulders off the floor. Do not overdo your exercises, especially in the beginning. Exercises may cause you some mild back discomfort which lasts for a few minutes; however, if the pain is more severe, or lasts for more than 15 minutes, do not continue exercises until you see your caregiver. Improvement with exercise therapy for back problems is slow. See your caregivers for assistance with developing a proper back exercise program. Document Released: 06/03/2005 Document Revised: 07/18/2012 Document Reviewed: 02/25/2012 ExitCare? Patient Information ?2014 [employer] This information is not intended to replace advice given to you by your health care provider. Make sure you discuss any questions you have with your health care provider. RANJEET Choi KAITLYN M , have received the following patient education materials/instructions and have verbalized understanding: Patient Education Materials: Back Pain, Adult; Back Exercises Follow-up Instructions: With: Address: When: Shari Hamiltonwayne [address] [place] [address] Business (1) In 3 days 06/09/2019 Patient Signature Date Clinician/Nurse Signature Date 06/07/2019 01:11:03 [facility] Progress Note-Nurseon 2019 Progress Note-Nurse Pt explained discharged instructions and voiced understanding. Pt sts she will follow up with PCP and denies any further questions at this time. Ride at bedside upon arrival Normal [facility] Progress Note-Nurse This nurse gave report to Raven Garcia who verbalizes understanding. [facility] XR Spine Lumbosacral 2 or 3 Viewson 06-07-2019 XR Spine Lumbosacral 2 or 3 Views Exam Date/Time: 06/06/2019 22:06 EST Reason for Exam: Pain, Traumatic Report IMPRESSION: TRANSITIONAL FEATURES OF THE SPINE. NO EVIDENCE OF FRACTURE. CLINICAL HISTORY: Pain, Traumatic. COMMENT: 3 views. There are transitional features of the spine at the thoracolumbar and lumbosacral junction. There is hypertrophic spurring involving vertebral bodies at the thoracolumbar junction and minimally of the lower lumbar spine. There are hypertrophic facet arthritic changes of mid and lower lumbar facet joints. The vertebral bodies are maintained in height. No fracture or subluxation is noted. There are metallic surgical clips in the right upper quadrant. There are metallic coils in the left lower quadrant. There are metallic clips in the pelvis. FINAL REPORT Dictated: 06/07/2019 7:48 am Angeles Rodriguez M.D. Signed (Electronic Signature): 06/07/2019 7:48 am Signed by: Angeles Rodriguez M.D. Transcribed by: CLIFFORD Technologist: HUMA [facility] Pre-Arrival Noteon 0 Pre-Arrival Note Pre-Arrival Summary Name: , Medic Agus NCKYLER Current Date: 06/06/2019 21:20:23 EST Gender: Female Date of : Age: 38 Pre-Arrival Type: EMS ETA: 06/06/2019 21:34:00 EST Primary Care Physician: Presenting Problem: Leg pain, post fall Pre-Arrival User: Sachi Douglas RN Referring Source: Location: [place] Completion Date/Time: 06/06/2019 21:04:00 [facility] Emergency Department Pre-Hospital Report Form Vital Signs: Pre-Hospital Report: Treatment in Route: Response to Treatment: Misc. Issues: [facility] Progress Note-Nurseon 2019 Progress Note-Nurse Pt to XR. Normal [facility] XR Foot 3+ Views Lefton 12-08 XR Foot 3+ Views Left Exam Date/Time: 12/24/2018 18:19 EDT Reason for Exam: Pain, Traumatic Report STUDY: XR Foot 3+ Views Left;; 12/24/2018 6:19 pm INDICATION: Pain, Traumatic. COMPARISON: None. ACCESSION NUMBER(S): [id number] ORDERING CLINICIAN: Maynor Franks FINDINGS: No displaced fracture or maya dislocation. IMPRESSION: No displaced fracture, correlate with site specific symptomatology. FINAL REPORT Dictated: 12/24/2018 6:21 pm Antony Gordillo DO Signed (Electronic Signature): 12/24/2018 6:21 pm Signed by: Antony Gordillo DO Technologist: MEAGAN [facility] ANCAon 11-09-2018 ATYPICAL PANCA <1:20 Normal Neg:<1:[address] [facility] Comment on above: Result Comment: The atypical pANCA pattern has been observed in a significant percentage of patients with ulcerative colitis, primary sclerosing cholangitis and autoimmune hepatitis. Performed At: [facility] [id number] Humberto Stone PhD [id number] Performed By: #### L [id number] #### [facility] [address] [address] C-ANCA <1:20 Normal Neg:<1:20 [facility] Comment on above: Performed By: #### L [id number] #### [facility] [address] [place] [address] P-ANCA <1:20 Normal Neg:<1:20 [facility] Comment on above: Result Comment: The presence of positive fluorescence exhibiting P-ANCA or C-ANCA patterns alone is not specific for the diagnosis of Larry's Granulomatosis (WG) or microscopic polyangiitis. Decisions about treatment should not be based solely on ANCA IFA results. The International ANCA Group Consensus recommends follow up testing of positive sera with both DE- 3 and MPO-ANCA enzyme immunoassays. As many as 5% serum samples are positive only by EIA. Ref. AM J Clin Pathol 1999;111:507-513. Performed By: #### L [id number] #### [facility] [address] [place] [address] HBCABon 11-08-2018 HBCAB NONREACTIVE Normal NONREACTIVE [facility] Comment on above: Result Comment: RESU LTS WERE OBTAINED WITH THE [employer] XP ANTI-HCB ASSAY. VALUES OBTAINED WITH DIFFERENT MANUFACTURERS' ASSAY METHODS MAY NOT BE USED INTERCHANGEABLY. Performed By: #### L [id number], L540.05793, L540.09542, L540.70499, L540.85369 #### [facility] [address] [place], [place] [id number] HBSAGon 11-08-2018 HBSAG NONREACTIVE Normal NONREACTIVE [facility] Comment on above: Result Comment: RESU LTS WERE OBTAINED WITH THE [employer] XP. VALUES OBTAINED WITH DIFFERENT MANUFACTURERS' ASSAY METHODS MAY NOT BE USED INTERCHANGEABLY. Performed By: #### L [id number], L540.20205, L540.66399, L540.29446, L540.64068 #### [facility] [address] [place] [address] HEP B AB QUANTon 11-08-2018 HEP B AB QUANT 16.40 mIU/mL High 0.00-9.99 [facility] Comment on above: Result Comment: STAT US OF IMMUNITY Protective Immunity: greater than or equal to 10 mIU/mL (Traceable to WHO International Reference Preparation) No Protective Immuniity: less than 10 mIU/mL Note: The magnitude of the measured result above the cutoff is not indicative of the total amount of antibody present. Performed By: #### L [id number], L540.23931, L540.46734, L540.76005, L540.82708 #### [facility] [address] [place] [address] HEP B CORE IGMon 11-08-2018 HEP B CORE IGM NONREACTIVE Normal NONREACTIVE [facility] Comment on above: Result Comment: RESU LTS WERE OBTAINED WITH THE [employer] XP ANTI-HBC IGM EIA. VALUES OBTAINED WITH DIFFERENT MANUFACTURERS' ASSAY METHODS MAY NOT BE USED INTERCHANGEABLY. These results may be falsely depressed in the presence of Biotin concentrations above 250 ng/ml. Performed By: #### L 540.15128, L540.97934, L540.43899, L540.87795, L540.79201 #### [facility] [address] [place] [address] HEPATITIS C ABon 11-08-2018 HCV AB NONREACTIVE Normal NONREACTIVE [facility] Comment on above: Result Comment: SCRE ENING TEST NEGATIVE NONREACTIVE HCV ANTIBODY SCREEN IS CONSISTENT WITH NO HCV INFECTION, UNLESS RECENT INFECTION IS SUSPECTED OR OTHER EVIDENCE EXISTS TO INDICATE HCV INFECTION Performed By: #### L [id number], L540.37565, L540.20637, L540.41714, L540.51559 #### [facility] [place] [address] Oligoclonal Bandingon 2018 CSF Olig Bands 0 bands [facility] Interpretation 0 <4 bands [facility] Comment on above: The oligoclonal band assay detected 3 or fewer unique IgG bands in the CSF. This is a negative result. Test Performed by: [facility] [address] [place] [address] Serum 0 bands [facility] POC Glucoseon 07-15-2018 Glucose mass conc 159 mg/dL High 65 - 99 mg/dL [facility] Interpretation and review of laboratory results Abnormal [facility] Glucose mass conc 168 mg/dL High 65 - 99 mg/dL [facility] Interpretation and review of laboratory results Abnormal [facility] IGG SYNTHESIS, CSFon 019 Albumin in CSF/Albumin in Serum or Plasma RelRto (Serum or Plasma and CSF) 6.1 [facility] Albumin mass conc 4130 mg/dL 3848 - 530 4 mg/dL [facility] Albumin mass conc (CSF) 25.0 mg/dL 0 - 27 mg/dL [facility] IgG mass conc 765 mg/dL 541 - 1694 mg/dL [facility] IgG mass conc (CSF) 2.2 mg/dL 0 - 8.1 mg/dL [facility] IgG synthesis rate Calculated mass/time (S+CSF) 0.0 [facility] IgG/Albumin mass ratio (CSF) 0.5 [facility] Interpretation and review of laboratory results Normal [facility] [facility] Otheron 07-14-2018 Interface, Rad In Fu ji Speechq - 07/14/2018 10:14 AM EST EXAMINATION: MRI OF THE LUMBAR SPINE WITHOUT AND WITH CONTRAST; MRI OF THE THORACIC SPINE WITHOUT AND WITH CONTRAST 07/12/2018 TECHNIQUE: Multiplanar multisequence MRI of the lumbar spine was performed without and with the administration of intravenous contrast.; Multiplanar multisequence MRI of the thoracic spine was performed without and with the administration of intravenous contrast. COMPARISON: 06/11/2011. HISTORY: ORDERING SYSTEM PROVIDED HISTORY: Lumbar canal stenosis or tumor; TECHNOLOGIST PROVIDED HISTORY: Reason for Exam: Lumbar canal stenosis or tumor Illness/Other Acuity: Acute Type of Encounter: Initial Additional signs and symptoms: Patient presents to the ED with 1 day of lower extremity weakness. Patient states symptoms started 1 day prior with decreased sensation, numbness, tingling in bilateral lower extremities. This continued overnight, she then had sudden onset lower extremity weakness/heaviness. 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 States at that time she had similar symptoms with initially lower extremity numbness and tingling, followed by lower extremity weakness. She did not require respiratory support during that episode. She does follow with neurology through [facility]. Patient does not feel like she is having any difficulty breathing at this point time. She does have some tingling in her upper extremities however this is resolved. ORDERING SYSTEM PROVIDED DIAGNOSIS CODES: R29.898 Weakness of lower extremity, unspecified laterality R20.8 Decreased sensation of lower extremity FINDINGS: THORACIC SPINE: The alignment of the thoracic vertebral bodies are within normal limits. The vertebral body heights are within normal limits. No evidence of significant spondylolisthesis. No evidence of discitis or osteomyelitis. Thoracic spinal cord is within normal limits. No evidence of abnormal T2 hyperintense signal. No evidence of extrinsic compression. No evidence of abnormal enhancement. There are tiny scattered disc herniations throughout the thoracic spine, which does not result in significant spinal canal stenosis or neural foraminal stenosis. The visualized paraspinal structures are grossly unremarkable. LUMBAR SPINE: For purpose of this report, there is transitional lumbosacral anatomy. The last disc-bearing level is taken L5-S1 vertebral level. There is small disc at L5-S1. The vertebral bodies are labeled on the sagittal T2-weighted sequences. BONES/ALIGNMENT: There is normal alignment of the spine. The vertebral body heights are maintained. There is no evidence of discitis, or osteomyelitis. SPINAL CORD: The conus terminates normally. SOFT TISSUES: There is a 12 mm hypoenhancing lesion within the right kidney, which does not appear to be cyst. This is partially evaluated on this examination. No evidence of abnormal enhancement within the lumbar spine. T12-L1: There is intervertebral disc desiccation with disc height loss. Minimal broad disc bulge. No significant spinal canal stenosis or neural foraminal stenosis. L1-L2:: No significant disc herniation. No significant spinal canal stenosis or neural foraminal stenosis. Mild bilateral facet degenerative changes. L2-L3: Minimal broad disc bulge. Mild bilateral facet degenerative changes. No significant disc herniation. No significant spinal canal stenosis or neural foraminal stenosis. L3-L4: There is a broad disc bulge, with small central disc protrusion and annular fissure. There is intervertebral disc desiccation. Mild bilateral facet degenerative changes. No significant spinal canal stenosis. No significant neural foraminal stenosis. L4-5: There is a broad disc bulge with small central disc protrusion. There is a partial intervertebral disc desiccation. There are moderate bilateral facet degenerative changes. Moderate ligamentum flavum thickening is also present. There is moderate spinal canal stenosis. Mild bilateral neural foraminal stenosis. L5-S1: There is a small hypoplastic disc at this level. There is no disc herniation. No significant spinal canal stenosis or neural foraminal stenosis. IMPRESSION: THORACIC SPINE: 1. Tiny scattered disc herniations throughout the thoracic spine, without evidence of significant spinal canal stenosis, or neural foraminal stenosis. No evidence of extrinsic spinal cord compression. 2. No evidence of abnormal T2 hyperintense signal within the spinal cord. No evidence of abnormal enhancement involving the spinal cord. LUMBAR SPINE: Please note that there is transitional lumbosacral anatomy, with numbering system as detailed above. 1. No evidence of abnormal signal within the distal thoracic spinal cord or conus. No evidence of abnormal enhancement involving the nerve roots. 2. Multilevel degenerative changes of the lumbar spine, most prominent at L4-L5, as detailed above. 3. Indeterminate 12 mm hypoenhancing lesion within right kidney. Recommend nonemergent renal ultrasound. TRP/kms Workstation ID: [id number] [facility] EXAMINATION: MRI OF THE LUMBAR SPINE WITHOUT AND WITH CONTRAST; MRI OF THE THORACIC SPINE WITHOUT AND WITH CONTRAST 07/12/2018 TECHNIQUE: Multiplanar multisequence MRI of the lumbar spine was performed without and with the administration of intravenous contrast.; Multiplanar multisequence MRI of the thoracic spine was performed without and with the administration of intravenous contrast. COMPARISON: 06/11/2011. HISTORY: ORDERING SYSTEM PROVIDED HISTORY: Lumbar canal stenosis or tumor; TECHNOLOGIST PROVIDED HISTORY: Reason for Exam: Lumbar canal stenosis or tumor Illness/Other Acuity: Acute Type of Encounter: Initial Additional signs and symptoms: Patient presents to the ED with 1 day of lower extremity weakness. Patient states symptoms started 1 day prior with decreased sensation, numbness, tingling in bilateral lower extremities. This continued overnight, she then had sudden onset lower extremity weakness/heaviness. 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 States at that time she had similar symptoms with initially lower extremity numbness and tingling, followed by lower extremity weakness. She did not require respiratory support during that episode. She does follow with neurology through [facility]. Patient does not feel like she is having any difficulty breathing at this point time. She does have some tingling in her upper extremities however this is resolved. ORDERING SYSTEM PROVIDED DIAGNOSIS CODES: R29.898 Weakness of lower extremity, unspecified laterality R20.8 Decreased sensation of lower extremity FINDINGS: THORACIC SPINE: The alignment of the thoracic vertebral bodies are within normal limits. The vertebral body heights are within normal limits. No evidence of significant spondylolisthesis. No evidence of discitis or osteomyelitis. Thoracic spinal cord is within normal limits. No evidence of abnormal T2 hyperintense signal. No evidence of extrinsic compression. No evidence of abnormal enhancement. There are tiny scattered disc herniations throughout the thoracic spine, which does not result in significant spinal canal stenosis or neural foraminal stenosis. The visualized paraspinal structures are grossly unremarkable. LUMBAR SPINE: For purpose of this report, there is transitional lumbosacral anatomy. The last disc-bearing level is taken L5-S1 vertebral level. There is small disc at L5-S1. The vertebral bodies are labeled on the sagittal T2-weighted sequences. BONES/ALIGNMENT: There is normal alignment of the spine. The vertebral body heights are maintained. There is no evidence of discitis, or osteomyelitis. SPINAL CORD: The conus terminates normally. SOFT TISSUES: There is a 12 mm hypoenhancing lesion within the right kidney, which does not appear to be cyst. This is partially evaluated on this examination. No evidence of abnormal enhancement within the lumbar spine. T12-L1: There is intervertebral disc desiccation with disc height loss. Minimal broad disc bulge. No significant spinal canal stenosis or neural foraminal stenosis. L1-L2:: No significant disc herniation. No significant spinal canal stenosis or neural foraminal stenosis. Mild bilateral facet degenerative changes. L2-L3: Minimal broad disc bulge. Mild bilateral facet degenerative changes. No significant disc herniation. No significant spinal canal stenosis or neural foraminal stenosis. L3-L4: There is a broad disc bulge, with small central disc protrusion and annular fissure. There is intervertebral disc desiccation. Mild bilateral facet degenerative changes. No significant spinal canal stenosis. No significant neural foraminal stenosis. L4-5: There is a broad disc bulge with small central disc protrusion. There is a partial intervertebral disc desiccation. There are moderate bilateral facet degenerative changes. Moderate ligamentum flavum thickening is also present. There is moderate spinal canal stenosis. Mild bilateral neural foraminal stenosis. L5-S1: There is a small hypoplastic disc at this level. There is no disc herniation. No significant spinal canal stenosis or neural foraminal stenosis. [facility] THORACIC SPINE: 1. T iny scattered disc herniations throughout the thoracic spine, without evidence of significant spinal canal stenosis, or neural foraminal stenosis. No evidence of extrinsic spinal cord compression. 2. No evidence of abnormal T2 hyperintense signal within the spinal cord. No evidence of abnormal enhancement involving the spinal cord. LUMBAR SPINE: Please note that there is transitional lumbosacral anatomy, with numbering system as detailed above. 1. No evidence of abnormal signal within the distal thoracic spinal cord or conus. No evidence of abnormal enhancement involving the nerve roots. 2. Multilevel degenerative changes of the lumbar spine, most prominent at L4-L5, as detailed above. 3. Indeterminate 12 mm hypoenhancing lesion within right kidney. Recommend nonemergent renal ultrasound. TRP/kms Workstation ID: [id number] [facility] POC Glucoseon 07-14-2018 Glucose mass conc 156 mg/dL High 65 - 99 mg/dL [facility] Interpretation and review of laboratory results Abnormal [facility] Glucose mass conc 141 mg/dL High 65 - 99 mg/dL [facility] Interpretation and review of laboratory results Abnormal [facility] Glucose mass conc 255 mg/dL High 65 - 99 mg/dL [facility] Interpretation and review of laboratory results Abnormal [facility] Glucose mass conc 147 mg/dL High 65 - 99 mg/dL [facility] Interpretation and review of laboratory results Abnormal [facility] US Renal Onlyon 07-14-2018 No hydronephrosis. 1 2 mm lesion in the right kidney seen on earlier MRI is not appreciated on today's ultrasound. However this has been stable dating back to 06/11/2011 MRI and is compatible with a cyst. [employer] Workstation ID: [id number] [facility] Interface, [facility] In Fu ji Speechq - 07/14/2018 3:21 PM EST EXAMINATION: ULTRASOUND OF THE KIDNEYS 07/13/2018 8:29 am COMPARISON: MRI 07/12/2018 and 06/11/2011. HISTORY: ORDERING SYSTEM PROVIDED HISTORY: 12 mm right kidney lesion; TECHNOLOGIST PROVIDED HISTORY: Reason for Exam: 12 mm right kidney lesion Illness/Other Acuity: Unknown Cancer History: unk Surgery, Radiation History: unk Type of Encounter: Subsequent/Follow-up Additional signs and symptoms: no ORDERING SYSTEM PROVIDED DIAGNOSIS CODES: R29.898 Weakness of lower extremity, unspecified laterality R20.8 Decreased sensation of lower extremity FINDINGS: The right kidney measures 11.3 cm in length and the left kidney measures 11.7 cm in length. Kidneys demonstrate normal cortical echogenicity. No hydronephrosis or intrarenal stones. IMPRESSION: No hydronephrosis. 12 mm lesion in the right kidney seen on earlier MRI is not appreciated on today's ultrasound. However this has been stable dating back to 06/11/2011 MRI and is compatible with a cyst. [employer] Workstation ID: [id number] [facility] EXAMINATION: ULTRASO UND OF THE KIDNEYS 07/13/2018 8:29 am COMPARISON: MRI 07/12/2018 and 06/11/2011. HISTORY: ORDERING SYSTEM PROVIDED HISTORY: 12 mm right kidney lesion; TECHNOLOGIST PROVIDED HISTORY: Reason for Exam: 12 mm right kidney lesion Illness/Other Acuity: Unknown Cancer History: unk Surgery, Radiation History: unk Type of Encounter: Subsequent/Follow-up Additional signs and symptoms: no ORDERING SYSTEM PROVIDED DIAGNOSIS CODES: R29.898 Weakness of lower extremity, unspecified laterality R20.8 Decreased sensation of lower extremity FINDINGS: The right kidney measures 11.3 cm in length and the left kidney measures 11.7 cm in length. Kidneys demonstrate normal cortical echogenicity. No hydronephrosis or intrarenal stones. [facility] XR Lumbar Puncture (Diagnost ic)on 07-14-2018 Successful fluoroscopic-guided lumbar puncture. [employer] Workstation ID: [id number] [facility] Interface, Rad In Fu ji Speechq - 07/14/2018 2:55 PM EST EXAMINATION: FLUOROSCOPIC-GUIDED LUMBAR PUNCTURE 07/13/2018 HISTORY: ORDERING SYSTEM PROVIDED HISTORY: Guillain Walton syndrome or myelitis; TECHNOLOGIST PROVIDED HISTORY: Reason for Exam: Guillain Walton syndrome or myelitis Illness/Other Acuity: Acute Type of Encounter: Initial Additional signs and symptoms: unk Fluoro dose in mGy?:2.4 ORDERING SYSTEM PROVIDED DIAGNOSIS CODES: R29.898 Weakness of lower extremity, unspecified laterality R20.8 Decreased sensation of lower extremity FLUOROSCOPY DOSE AND TYPE OR TIME AND EXPOSURES: Ka,r = 2.4 mGy PROCEDURE: POT ROOM TAPPER: Brayden Heath Informed consent was obtained after the risks and benefits of the procedure were discussed with the patient and all questions were answered fully. Jackson protocol was observed and a standard timeout was performed. The patient was positioned prone and the back was prepped and draped in the normal sterile fashion. 1% lidocaine was used for local anesthesia. The subarachnoid space was accessed with a 20-gauge 3.5 spinal needle at the L3-4 level. Free flow of clear CSF was noted. Approximately 8.5 mL of CSF was removed and sent for analysis. The stylet was reinserted, spinal needle was removed and brief pressure was applied at the puncture site. There were no immediate complications and the patient tolerated the procedure well. IMPRESSION: Successful fluoroscopic-guided lumbar puncture. [employer] Workstation ID: [id number] [facility] EXAMINATION: FLUOROSCOPIC-GUIDED LUMBAR PUNCTURE 07/13/2018 HISTORY: ORDERING SYSTEM PROVIDED HISTORY: Guillain Walton syndrome or myelitis; TECHNOLOGIST PROVIDED HISTORY: Reason for Exam: Guillain Walton syndrome or myelitis Illness/Other Acuity: Acute Type of Encounter: Initial Additional signs and symptoms: unk Fluoro dose in mGy?:2.4 ORDERING SYSTEM PROVIDED DIAGNOSIS CODES: R29.898 Weakness of lower extremity, unspecified laterality R20.8 Decreased sensation of lower extremity FLUOROSCOPY DOSE AND TYPE OR TIME AND EXPOSURES: adán Sabillon = 2.4 mGy PROCEDURE: POT ROOM TAPPER: Brayden Heath Informed consent was obtained after the risks and benefits of the procedure were discussed with the patient and all questions were answered fully. Jackson protocol was observed and a standard timeout was performed. The patient was positioned prone and the back was prepped and draped in the normal sterile fashion. 1% lidocaine was used for local anesthesia. The subarachnoid space was accessed with a 20-gauge 3.5 spinal needle at the L3-4 level. Free flow of clear CSF was noted. Approximately 8.5 mL of CSF was removed and sent for analysis. The stylet was reinserted, spinal needle was removed and brief pressure was applied at the puncture site. There were no immediate complications and the patient tolerated the procedure well. [facility] Basic Metabolic Panelon Anion gap molar conc 17 mmol/L 10 - 20 mmol/L [facility] Calcium mass conc 8.8 mg/dL 8.4 - 10.2 mg/dL [facility] Chloride molar conc 107 mmol/L 98 - 108 mmol/L [facility] Creatinine mass conc 0.72 mg/dL 0.4 - 1.1 mg/dL [facility] GFR/1.73 sq M predicted among non-blacks MDRD vol rate/area (S/P/Bld) The eGFR should be used for monitoring renal function only and not for medication dosing. [facility] GFR/1.73 sq M.predicted CKD-EPI vol rate/area (S/P/Bld) 108 >=60 mL/min/1.73 m2 [facility] Glucose mass conc 158 mg/dL High 65 - 99 mg/dL [facility] HCO3 molar conc 19 mmol/L Low 21 - 32 mmol/L [facility] Interpretation and review of laboratory results Abnormal [facility] Potassium molar conc 3.9 mmol/L 3.5 - 5.1 mmol/L [facility] Sodium molar conc 139 mmol/L 135 - 145 mmol/L [facility] Urea nitrogen mass conc 16 mg/dL 8 - 25 mg/dL [facility] Urea nitrogen/Creatinin e mass ratio 22.2 mg/mg High [facility] CBCon 07-13-2018 Erythrocyte distribution width Entitic volume (RBC) 14.7 % 11.6 - 14.8 % [facility] Hematocrit Volume Fraction (Bld) 41.9 % 36 - 46 % [facility] Hemoglobin mass conc (Bld) 13.6 g/dL 12 - 16 g/dL [facility] MCH Entitic mass (RBC) 27.3 pg 26 - 34 pg [facility] MCHC mass conc (RBC) 32.5 g/dL 31 - 37 g/dL [facility] MCV Entitic volume (RBC) 84.1 fL 80 - 100 fL [facility] Nucleated RBC #/vol (Bld) 0.00 10*3/uL [facility] Nucleated RBC/100 WBC Ratio (Bld) 0.0 % [facility] Platelet mean volume Entitic volume (Bld) 10.4 fL 9 - 15.5 fL [facility] Platelets #/vol (Bld) 242 10*3/uL [facility] RBC #/vol (Bld) 4.98 [facility] #/[facility] (Bld) 5.83 10*3/uL [facility] CSF CELL COUNT WITH BERKLEY TIALon 07-13-2018 Appearance Nom (CSF) Clear Clear [facility] Color Nom (CSF) Colorless Colorless [facility] Interpretation and review of laboratory results Abnormal [facility] Lymphocytes/100 WBC (CSF) 88 % High 0 - 80 % [facility] Monocytes/100 WBC (CSF) 12 % 0 - 45 % [facility] Neutrophils/100 WBC (CSF) 0 % 0 - 6 % [facility] Nucleated cells Auto #/vol (CSF) 2 [facility] Comment on above: WBC/Nuc cell count i ncludes mesothelial and other non-WBC nucleated cells as reflected in the differential. RBC Auto #/vol (CSF) 2 High [facility] Tube number of Cerebral spinal fluid Tube 4 [facility] Xanthochromia Ql (CSF) Absent Absent [facility] Glucose, CSFon 07-13-2018 Glucose mass conc (CSF) 98 mg/dL High 60 - 90 mg/dL [facility] Otheron 07-13-2018 Interpretation and review of laboratory results Abnormal [facility] POC Glucoseon 07-13-2018 Glucose mass conc 276 mg/dL High 65 - 99 mg/dL [facility] Interpretation and review of laboratory results Abnormal [facility] Glucose mass conc 130 mg/dL High 65 - 99 mg/dL [facility] Glucose mass conc 150 mg/dL High 65 - 99 mg/dL [facility] Interpretation and review of laboratory results Abnormal [facility] Glucose mass conc 155 mg/dL High 65 - 99 mg/dL [facility] Interpretation and review of laboratory results Abnormal [facility] PT/INRon 07-13-2018 INR Coag RelTime (PPP) 1.0 {INR} [facility] Interpretation and review of laboratory results Normal [facility] Prothrombin time (PT) Coag time (PPP) 13.0 s [facility] During the induction phase of oral anticoagulation, the INR may not reflect the anticoagulation status of the patient. Therapeutic ranges for INR's are: Most clinical situations: INR 2.0-3.0 Mechanical Prosthetic Valve: INR 2.5-3.5 Critical: INR >5.0 [facility] Protein, CSFon 07-13-2018 Interpretation and review of laboratory results Normal [facility] Protein mass conc (CSF) 40 mg/dL 15 - 45 mg/dL [facility] US RENAL ONLYon 07-13-2018 US RENAL ONLY EXAMINATION: ULTRASOUND OF THE KIDNEYS 07/13/2018 8:29 am COMPARISON: MRI 07/12/2018 and 06/11/2011. HISTORY: ORDERING SYSTEM PROVIDED HISTORY: 12 mm right kidney lesion; TECHNOLOGIST PROVIDED HISTORY: Reason for Exam: 12 mm right kidney lesion Illness/Other Acuity: Unknown Cancer History: unk Surgery, Radiation History: unk Type of Encounter: Subsequent/Follow-up Additional signs and symptoms: no ORDERING SYSTEM PROVIDED DIAGNOSIS CODES: R29.898 Weakness of lower extremity, unspecified laterality R20.8 Decreased sensation of lower extremity FINDINGS: The right kidney measures 11.3 cm in length and the left kidney measures 11.7 cm in length. Kidneys demonstrate normal cortical echogenicity. No hydronephrosis or intrarenal stones. IMPRESSION: No hydronephrosis. 12 mm lesion in the right kidney seen on earlier MRI is not appreciated on today's ultrasound. However this has been stable dating back to 06/11/2011 MRI and is compatible with a cyst. [facility] Workstation ID: [id number] Dictated by: RICK CONNER on WedJul 13, 2018 8:52:11 AM EST Transcribed by: HOUSTON RAPP on WedJul 13, 2018 9:04:02 AM EST Finalized by: RICK CONNER on WedJul 14, 2018 3:18:[address] [facility] Comment on above: Order Comment: Reaso n for exam?:12 mm right kidney lesion Injury/Trauma or Illness?:Illness/Other How long have you had these symptoms (acute/chronic)?:Unknown History of cancer?:unk Surgeries, chemotherapy, or radiation?:unk Type of Exam?:Subsequent/Follow-up Recent MRI Additional signs and symptoms?:no B12/Folateon 07-12-2018 Cobalamin (Vitamin B12) mass conc 418 pg/mL 232 - 1245 pg/mL [facility] Folate mass conc 11.1 ng/mL 3.1 - 17.5 ng/mL [facility] Comment on above: Deficient <2.2 Borderline 2.2 - 3.0 Excessive >17.5 Basic Metabolic Panelon Anion gap molar conc 17 mmol/L 10 - 20 mmol/L [facility] Calcium mass conc 8.5 mg/dL 8.4 - 10.2 mg/dL [facility] Chloride molar conc 105 mmol/L 98 - 108 mmol/L [facility] Creatinine mass conc 0.70 mg/dL 0.4 - 1.1 mg/dL [facility] GFR/1.73 sq M predicted among non-blacks MDRD vol rate/area (S/P/Bld) The eGFR should be used for monitoring renal function only and not for medication dosing. [facility] GFR/1.73 sq M.predicted CKD-EPI vol rate/area (S/P/Bld) 112 >=60 mL/min/1.73 m2 [facility] Glucose mass conc 161 mg/dL High 65 - 99 mg/dL [facility] HCO3 molar conc 21 mmol/L 21 - 32 mmol/L [facility] Interpretation and review of laboratory results Abnormal [facility] Potassium molar conc 3.6 mmol/L 3.5 - 5.1 mmol/L [facility] Sodium molar conc 139 mmol/L 135 - 145 mmol/L [facility] Urea nitrogen mass conc 15 mg/dL 8 - 25 mg/dL [facility] Urea nitrogen/Creatinin e mass ratio 21.4 mg/mg High [facility] CBCon 07-12-2018 Erythrocyte distribution width Entitic volume (RBC) 15.0 % High 11.6 - 14.8 % [facility] Hematocrit Volume Fraction (Bld) 39.8 % 36 - 46 % [facility] Hemoglobin mass conc (Bld) 13.2 g/dL 12 - 16 g/dL [facility] Interpretation and review of laboratory results Abnormal [facility] MCH Entitic mass (RBC) 27.4 pg 26 - 34 pg [facility] MCHC mass conc (RBC) 33.2 g/dL 31 - 37 g/dL [facility] MCV Entitic volume (RBC) 82.6 fL 80 - 100 fL [facility] Nucleated RBC #/vol (Bld) 0.00 10*3/uL [facility] Nucleated RBC/100 WBC Ratio (Bld) 0.0 % [facility] Platelet mean volume Entitic volume (Bld) 10.4 fL 9 - 15.5 fL [facility] Platelets #/vol (Bld) 242 10*3/uL [facility] RBC #/vol (Bld) 4.82 10*6[facility] W[facility] #/[facility] (Bld) 6.05 10*3/uL [facility] CPK NO MBon 07-12-2018 CK enzyme act/vol 75 U/L 40 - 170 U/L [facility] Interpretation and review of laboratory results Normal [facility] Calcium, Ionizedon 9 Calcium.ionized mass conc 5.2 mg/dL 4.5 - 5.3 mg/dL [facility] MR LUMBAR SPINE WITH AND WIT HOUT CONTRASTon 07-12-2018 MR LUMBAR SPINE WITH AND WITHOUT CONTRAST EXAMINATION: MRI OF THE LUMBAR SPINE WITHOUT AND WITH CONTRAST; MRI OF THE THORACIC SPINE WITHOUT AND WITH CONTRAST 07/12/2018 TECHNIQUE: Multiplanar multisequence MRI of the lumbar spine was performed without and with the administration of intravenous contrast.; Multiplanar multisequence MRI of the thoracic spine was performed without and with the administration of intravenous contrast. COMPARISON: 06/11/2011. HISTORY: ORDERING SYSTEM PROVIDED HISTORY: Lumbar canal stenosis or tumor; TECHNOLOGIST PROVIDED HISTORY: Reason for Exam: Lumbar canal stenosis or tumor Illness/Other Acuity: Acute Type of Encounter: Initial Additional signs and symptoms: Patient presents to the ED with 1 day of lower extremity weakness. Patient states symptoms started 1 day prior with decreased sensation, numbness, tingling in bilateral lower extremities. This continued overnight, she then had sudden onset lower extremity weakness/heaviness. 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 States at that time she had similar symptoms with initially lower extremity numbness and tingling, followed by lower extremity weakness. She did not require respiratory support during that episode. She does follow with neurology through [facility]. Patient does not feel like she is having any difficulty breathing at this point time. She does have some tingling in her upper extremities however this is resolved. ORDERING SYSTEM PROVIDED DIAGNOSIS CODES: R29.898 Weakness of lower extremity, unspecified laterality R20.8 Decreased sensation of lower extremity FINDINGS: THORACIC SPINE: The alignment of the thoracic vertebral bodies are within normal limits. The vertebral body heights are within normal limits. No evidence of significant spondylolisthesis. No evidence of discitis or osteomyelitis. Thoracic spinal cord is within normal limits. No evidence of abnormal T2 hyperintense signal. No evidence of extrinsic compression. No evidence of abnormal enhancement. There are tiny scattered disc herniations throughout the thoracic spine, which does not result in significant spinal canal stenosis or neural foraminal stenosis. The visualized paraspinal structures are grossly unremarkable. LUMBAR SPINE: For purpose of this report, there is transitional lumbosacral anatomy. The last disc-bearing level is taken L5-S1 vertebral level. There is small disc at L5-S1. The vertebral bodies are labeled on the sagittal T2-weighted sequences. BONES/ALIGNMENT: There is normal alignment of the spine. The vertebral body heights are maintained. There is no evidence of discitis, or osteomyelitis. SPINAL CORD: The conus terminates normally. SOFT TISSUES: There is a 12 mm hypoenhancing lesion within the right kidney, which does not appear to be cyst. This is partially evaluated on this examination. No evidence of abnormal enhancement within the lumbar spine. T12-L1: There is intervertebral disc desiccation with disc height loss. Minimal broad disc bulge. No significant spinal canal stenosis or neural foraminal stenosis. L1-L2:: No significant disc herniation. No significant spinal canal stenosis or neural foraminal stenosis. Mild bilateral facet degenerative changes. L2-L3: Minimal broad disc bulge. Mild bilateral facet degenerative changes. No significant disc herniation. No significant spinal canal stenosis or neural foraminal stenosis. L3-L4: There is a broad disc bulge, with small central disc protrusion and annular fissure. There is intervertebral disc desiccation. Mild bilateral facet degenerative changes. No significant spinal canal stenosis. No significant neural foraminal stenosis. L4-5: There is a broad disc bulge with small central disc protrusion. There is a partial intervertebral disc desiccation. There are moderate bilateral facet degenerative changes. Moderate ligamentum flavum thickening is also present. There is moderate spinal canal stenosis. Mild bilateral neural foraminal stenosis. L5-S1: There is a small hypoplastic disc at this level. There is no disc herniation. No significant spinal canal stenosis or neural foraminal stenosis. IMPRESSION: THORACIC SPINE: 1. Tiny scattered disc herniations throughout the thoracic spine, without evidence of significant spinal canal stenosis, or neural foraminal stenosis. No evidence of extrinsic spinal cord compression. 2. No evidence of abnormal T2 hyperintense signal within the spinal cord. No evidence of abnormal enhancement involving the spinal cord. LUMBAR SPINE: Please note that there is transitional lumbosacral anatomy, with numbering system as detailed above. 1. No evidence of abnormal signal within the distal thoracic spinal cord or conus. No evidence of abnormal enhancement involving the nerve roots. 2. Multilevel degenerative changes of the lumbar spine, most prominent at L4-L5, as detailed above. 3. Indeterminate 12 mm hypoenhancing lesion within right kidney. Recommend nonemergent renal ultrasound. TRP/kms Workstation ID: [id number] Dictated by: ABRAHAM CONNER on WedJul 12, 2018 9:27:16 PM EST Transcribed by: TONY RICHARDS IN [employer] on WedJul 12, 2018 9:38:12 PM EST Finalized by: ABRAHAM CONNER on WedJul 14, 2018 10:12:[address] [facility] Comment on above: Order Comment: Reaso n for exam?:Lumbar canal stenosis or tumor Injury/Trauma or Illness?:Illness/Other How long have you had these symptoms (acute/chronic)?:Acute Type of Exam?:Initial Additional signs and symptoms?:Patient presents to the ED with 1 day of lower extremity weakness. Patient states symptoms started 1 day prior with decreased sensation, numbness, tingling in bilateral lower extremities. This continued overnight, she then had sudden onset lower extremity weakness/heaviness. 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 States at that time she had similar symptoms with initially lower extremity numbness and tingling, followed by lower extremity weakness. She did not require respiratory support during that episode. She does follow with neurology through [facility]. Patient does not feel like she is having any difficulty breathing at this point time. She does have some tingling in her upper extremities however this is resolved. MR THORACIC SPINE WITH AND W ITHOUT CONTRASTon 07-12-2018 MR THORACIC SPINE WITH AND WITHOUT CONTRAST EXAMINATION: MRI OF THE LUMBAR SPINE WITHOUT AND WITH CONTRAST; MRI OF THE THORACIC SPINE WITHOUT AND WITH CONTRAST 07/12/2018 TECHNIQUE: Multiplanar multisequence MRI of the lumbar spine was performed without and with the administration of intravenous contrast.; Multiplanar multisequence MRI of the thoracic spine was performed without and with the administration of intravenous contrast. COMPARISON: 06/11/2011. HISTORY: ORDERING SYSTEM PROVIDED HISTORY: Lumbar canal stenosis or tumor; TECHNOLOGIST PROVIDED HISTORY: Reason for Exam: Lumbar canal stenosis or tumor Illness/Other Acuity: Acute Type of Encounter: Initial Additional signs and symptoms: Patient presents to the ED with 1 day of lower extremity weakness. Patient states symptoms started 1 day prior with decreased sensation, numbness, tingling in bilateral lower extremities. This continued overnight, she then had sudden onset lower extremity weakness/heaviness. 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 States at that time she had similar symptoms with initially lower extremity numbness and tingling, followed by lower extremity weakness. She did not require respiratory support during that episode. She does follow with neurology through [facility]. Patient does not feel like she is having any difficulty breathing at this point time. She does have some tingling in her upper extremities however this is resolved. ORDERING SYSTEM PROVIDED DIAGNOSIS CODES: R29.898 Weakness of lower extremity, unspecified laterality R20.8 Decreased sensation of lower extremity FINDINGS: THORACIC SPINE: The alignment of the thoracic vertebral bodies are within normal limits. The vertebral body heights are within normal limits. No evidence of significant spondylolisthesis. No evidence of discitis or osteomyelitis. Thoracic spinal cord is within normal limits. No evidence of abnormal T2 hyperintense signal. No evidence of extrinsic compression. No evidence of abnormal enhancement. There are tiny scattered disc herniations throughout the thoracic spine, which does not result in significant spinal canal stenosis or neural foraminal stenosis. The visualized paraspinal structures are grossly unremarkable. LUMBAR SPINE: For purpose of this report, there is transitional lumbosacral anatomy. The last disc-bearing level is taken L5-S1 vertebral level. There is small disc at L5-S1. The vertebral bodies are labeled on the sagittal T2-weighted sequences. BONES/ALIGNMENT: There is normal alignment of the spine. The vertebral body heights are maintained. There is no evidence of discitis, or osteomyelitis. SPINAL CORD: The conus terminates normally. SOFT TISSUES: There is a 12 mm hypoenhancing lesion within the right kidney, which does not appear to be cyst. This is partially evaluated on this examination. No evidence of abnormal enhancement within the lumbar spine. T12-L1: There is intervertebral disc desiccation with disc height loss. Minimal broad disc bulge. No significant spinal canal stenosis or neural foraminal stenosis. L1-L2:: No significant disc herniation. No significant spinal canal stenosis or neural foraminal stenosis. Mild bilateral facet degenerative changes. L2-L3: Minimal broad disc bulge. Mild bilateral facet degenerative changes. No significant disc herniation. No significant spinal canal stenosis or neural foraminal stenosis. L3-L4: There is a broad disc bulge, with small central disc protrusion and annular fissure. There is intervertebral disc desiccation. Mild bilateral facet degenerative changes. No significant spinal canal stenosis. No significant neural foraminal stenosis. L4-5: There is a broad disc bulge with small central disc protrusion. There is a partial intervertebral disc desiccation. There are moderate bilateral facet degenerative changes. Moderate ligamentum flavum thickening is also present. There is moderate spinal canal stenosis. Mild bilateral neural foraminal stenosis. L5-S1: There is a small hypoplastic disc at this level. There is no disc herniation. No significant spinal canal stenosis or neural foraminal stenosis. IMPRESSION: THORACIC SPINE: 1. Tiny scattered disc herniations throughout the thoracic spine, without evidence of significant spinal canal stenosis, or neural foraminal stenosis. No evidence of extrinsic spinal cord compression. 2. No evidence of abnormal T2 hyperintense signal within the spinal cord. No evidence of abnormal enhancement involving the spinal cord. LUMBAR SPINE: Please note that there is transitional lumbosacral anatomy, with numbering system as detailed above. 1. No evidence of abnormal signal within the distal thoracic spinal cord or conus. No evidence of abnormal enhancement involving the nerve roots. 2. Multilevel degenerative changes of the lumbar spine, most prominent at L4-L5, as detailed above. 3. Indeterminate 12 mm hypoenhancing lesion within right kidney. Recommend nonemergent renal ultrasound. TRP/kms Workstation ID: [id number] Dictated by: ABRAHAM CONNER on WedJul 12, 2018 9:27:16 PM EST Transcribed by: TONY RICHARDS IN [employer] on WedJul 12, 2018 9:38:12 PM EST Finalized by: ABRAHAM CONNER on Areli Jul 14, 2018 10:12:[address] [facility] Comment on above: Order Comment: Reaso n for exam?:myelitis Injury/Trauma or Illness?:Illness/Other How long have you had these symptoms (acute/chronic)?:Acute Type of Exam?:Initial Additional signs and symptoms?:Patient presents to the ED with 1 day of lower extremity weakness. Patient states symptoms started 1 day prior with decreased sensation, numbness, tingling in bilateral lower extremities. This continued overnight, she then had sudden onset lower extremity weakness/heaviness. 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 States at that time she had similar symptoms with initially lower extremity numbness and tingling, followed by lower extremity weakness. She did not require respiratory support during that episode. She does follow with neurology through [facility]. Patient does not feel like she is having any difficulty breathing at this point time. She does have some tingling in her upper extremities however this is resolved. Magnesium Levelon 07-12-2018 Interpretation and review of laboratory results Normal [facility] Magnesium mass conc 1.6 mg/dL 1.6 - 2.4 mg/dL [facility] Otheron 07-12-2018 Interpretation and review of laboratory results Normal [facility] POC Glucoseon 07-12-2018 Glucose mass conc 155 mg/dL High 65 - 99 mg/dL [facility] Interpretation and review of laboratory results Abnormal [facility] Glucose mass conc 178 mg/dL High 65 - 99 mg/dL [facility] Interpretation and review of laboratory results Abnormal [facility] Glucose mass conc 150 mg/dL High 65 - 99 mg/dL [facility] Interpretation and review of laboratory results Abnormal [facility] Glucose mass conc 147 mg/dL High 65 - 99 mg/dL [facility] Interpretation and review of laboratory results Abnormal [facility] Glucose mass conc 122 mg/dL High 65 - 99 mg/dL [facility] Interpretation and review of laboratory results Abnormal [facility] XR LUMBAR PUNCTURE (DIAGNOST IC)on 07-12-2018 XR LUMBAR PUNCTURE (DIAGNOSTIC) EXAMINATION: FLUOROSCOPIC-GUIDED LUMBAR PUNCTURE 07/13/2018 HISTORY: ORDERING SYSTEM PROVIDED HISTORY: Guillain Walton syndrome or myelitis; TECHNOLOGIST PROVIDED HISTORY: Reason for Exam: Guillain Walton syndrome or myelitis Illness/Other Acuity: Acute Type of Encounter: Initial Additional signs and symptoms: unk Fluoro dose in mGy?:2.4 ORDERING SYSTEM PROVIDED DIAGNOSIS CODES: R29.898 Weakness of lower extremity, unspecified laterality R20.8 Decreased sensation of lower extremity FLUOROSCOPY DOSE AND TYPE OR TIME AND EXPOSURES: adán Sabillon = 2.4 mGy PROCEDURE: POT ROOM TAPPER: Brayden Heath Informed consent was obtained after the risks and benefits of the procedure were discussed with the patient and all questions were answered fully. Jackson protocol was observed and a standard timeout was performed. The patient was positioned prone and the back was prepped and draped in the normal sterile fashion. 1% lidocaine was used for local anesthesia. The subarachnoid space was accessed with a 20-gauge 3.5 spinal needle at the L3-4 level. Free flow of clear CSF was noted. Approximately 8.5 mL of CSF was removed and sent for analysis. The stylet was reinserted, spinal needle was removed and brief pressure was applied at the puncture site. There were no immediate complications and the patient tolerated the procedure well. IMPRESSION: Successful fluoroscopic-guided lumbar puncture. [employer] Workstation ID: [id number] Dictated by: BRAYDEN HEATH on WedJul 13, 2018 4:51:21 PM EST Transcribed by: KAILYN GREENWOOD on WedJul 13, 2018 5:55:00 PM EST Finalized by: BRAYDEN HEATH on WedJul 14, 2018 2:52:[address] [facility] Comment on above: Order Comment: Accom panying serum glucose to be done Save any CSF that remains Reason for exam?:Guillain Walton syndrome or myelitis Injury/Trauma or Illness?:Illness/Other How long have you had these symptoms (acute/chronic)?:Acute Type of Exam?:Initial Additional signs and symptoms?:unk Fluoro time in minutes:.5 Fluoro dose in mGy?:2.4 Auto Diffon 07-11-2018 Basophils (Bld) [#/Vol] 0.1 E3/mcL Normal 0.0-0.2 [facility] Comment on above: Order Comment: Order Added by Discern Expert. Performed By: #### 2 [id number] #### MARTHA RemHemo [address] [place] [address] Basophils/100 WBC (Bld) 1.0 % Normal 0.0-2.0 [facility] Comment on above: Order Comment: Order Added by Discern Expert. Performed By: #### 2 [id number] #### MARTHA RemHemo [address] [place] [address] Eos Absolute 0.4 E3/mcL Normal 0.0-0.7 [facility] Comment on above: Order Comment: Order Added by Discern Expert. Performed By: #### 2 [id number] #### MARTHA RemHemo [address] [place] [address] Eosinophils/100 WBC (Bld) 7.3 % Normal 0.0-11.0 [facility] Comment on above: Order Comment: Order Added by Discern Expert. Performed By: #### 2 [id number] #### MARTHA RemHemo [address] [place] [address] Lymphocytes (Bld) [#/Vol] 1.9 E3/mcL Normal 1.2-3.4 [facility] Comment on above: Order Comment: Order Added by Discern Expert. Performed By: #### 2 [id number] #### MARTHA RemHemo [address] [place] [address] Lymphocytes/100 WBC (Bld) 32.6 % Normal 20.0-55.0 [facility] Comment on above: Order Comment: Order Added by Discern Expert. Performed By: #### 2 [id number] #### MARTHA RemHemo [address] [place] [address] Wilkinson Absolute 0.3 E3/mcL Normal 0.0-0.7 [facility] Comment on above: Order Comment: Order Added by Discern Expert. Performed By: #### 2 [id number] #### MARTHA RemHemo [address] [place] [address] Monocytes/100 WBC (Bld) 5.3 % Normal 0.0-10.0 [facility] Comment on above: Order Comment: Order Added by Discern Expert. Performed By: #### 2 [id number] #### MARTHA RemHemo [address] [place] [address] Neutro Absolute 3.1 E3/mcL Normal 1.4-6.5 [facility] Comment on above: Order Comment: Order Added by Discern Expert. Performed By: #### 2 [id number] #### MARTHA RemHemo [address] [place] [address] Neutro Auto 53.8 % Normal 37.0-75.0 [facility] Comment on above: Order Comment: Order Added by Discern Expert. Performed By: #### 2 [id number] #### MARTHA RemHemo [address] [place] [address] BMPon 07-11-2018 Anion gap molar conc 17 mmol/L 10 - 20 mmol/L [facility] Calcium mass conc 8.7 mg/dL 8.4 - 10.2 mg/dL [facility] Chloride molar conc 106 mmol/L 98 - 108 mmol/L [facility] Creatinine mass conc 0.69 mg/dL 0.4 - 1.1 mg/dL [facility] GFR/1.73 sq M predicted among non-blacks MDRD vol rate/area (S/P/Bld) The eGFR should be used for monitoring renal function only and not for medication dosing. [facility] GFR/1.73 sq M.predicted CKD-EPI vol rate/area (S/P/Bld) 112 >=60 mL/min/1.73 m2 [facility] Glucose mass conc 123 mg/dL High 65 - 99 mg/dL [facility] HCO3 molar conc 21 mmol/L 21 - 32 mmol/L [facility] Interpretation and review of laboratory results Abnormal [facility] Potassium molar conc 3.6 mmol/L 3.5 - 5.1 mmol/L [facility] Sodium molar conc 140 mmol/L 135 - 145 mmol/L [facility] Urea nitrogen mass conc 14 mg/dL 8 - 25 mg/dL [facility] Urea nitrogen/Creatinin e mass ratio 20.3 mg/mg High [facility] Anion gap [Moles/Vol] 12 mmol/L Normal 10-20 [facility] Comment on above: Performed By: #### 2 [id number] #### MARTHA RemHemo [address] [place] [address] Calcium [Mass/Vol] 9.0 mg/dL Normal 8.6-10.3 [facility] Comment on above: Performed By: #### 2 [id number] #### MARTHA RemHemo [address] [place] [address] Chloride [Moles/Vol] 106 mmol/L Normal 98-107 [facility] Comment on above: Performed By: #### 2 [id number] #### MARTHA RemHemo [address] [place] [address] CO2 [Moles/Vol] 23.0 mmol/L Normal 21.0-32.0 [facility] Comment on above: Performed By: #### 2 [id number] #### MARTHA RemHemo [address] [place] [address] Creatinine [Mass/Vol] 0.7 mg/dL Normal 0.5-1.1 [facility] Comment on above: Performed By: #### 2 [id number] #### MARTHA RemHemo [address] [place] [address] Glucose [Mass/Vol] 159 mg/dL High 70-99 [facility] Comment on above: Performed By: #### 2 [id number] #### MARTHA RemHemo [address] [place] [address] Potassium [Moles/Vol] 3.7 mmol/L Normal 3.5-5.3 [facility] Comment on above: Performed By: #### 2 [id number] #### MARTHA RemHemo [address] [place] [address] Sodium [Moles/Vol] 137 mmol/L Normal 136-145 [facility] Comment on above: Performed By: #### 2 [id number] #### MARTHA RemHemo [address] [place] [address] Urea nitrogen [Mass/Vol] 15 mg/dL Normal 6-23 [facility] Comment on above: Performed By: #### 2 [id number] #### MARTHA RemHemo [address] [place] [address] Urea nitrogen/Creatinin e [Mass ratio] 21.4 ratio Normal 5.4-30.0 [facility] Comment on above: Performed By: #### 2 [id number] #### MARTHA MoyerHemo [address] [place] [address] CBC WITH AUTO DIFFERENTIALon 07-11-2018 Basophils #/vol (Bld) 0.06 10*3/uL [facility] Basophils/100 WBC (Bld) 0.9 % [facility] Eosinophils #/vol (Bld) 0.55 10*3/uL High [facility] Eosinophils/100 WBC (Bld) 8.0 % [facility] Erythrocyte distribution width Entitic volume (RBC) 14.7 % 11.6 - 14.8 % [facility] Hematocrit Volume Fraction (Bld) 39.8 % 36 - 46 % [facility] Hemoglobin mass conc (Bld) 13.7 g/dL 12 - 16 g/dL [facility] Immature granulocytes #/vol (Bld) 0.02 10*3/uL [facility] Immature granulocytes/100 WBC (Bld) 0.30 % [facility] Comment on above: The IG parameter is the percentage of metamyelocytes, myelocytes, and promyelocytes. Interpretation and review of laboratory results Abnormal [facility] Lymphocytes #/vol (Bld) 2.87 10*3/uL [facility] Lymphocytes/100 WBC (Bld) 41.5 % [facility] MCH Entitic mass (RBC) 27.9 pg 26 - 34 pg [facility] MCHC mass conc (RBC) 34.4 g/dL 31 - 37 g/dL [facility] MCV Entitic volume (RBC) 81.1 fL 80 - 100 fL [facility] Monocytes #/vol (Bld) 0.47 10*3/uL [facility] Monocytes/100 WBC (Bld) 6.8 % [facility] Neutrophils #/vol (Bld) 2.94 10*3/uL [facility] Neutrophils/100 WBC (Bld) 42.5 % [facility] Nucleated RBC #/vol (Bld) 0.00 10*3/uL [facility] Nucleated RBC/100 WBC Ratio (Bld) 0.0 % [facility] Platelet mean volume Entitic volume (Bld) 10.0 fL 9 - 15.5 fL [facility] Platelets #/vol (Bld) 289 10*3/uL [facility] RBC #/vol (Bld) 4.91 10*6/uL [facility] WBC #/vol (Bld) 6.91 10*3/uL [facility] CBC w/ Auto Diffon 9 Erythrocyte distribution width (RBC) [Ratio] 16.2 % High 11.5-14.5 [facility] Comment on above: Performed By: #### 2 [id number] #### MARTHA RemHemo [address] [place] [address] Hematocrit (Bld) [Volume fraction] 43.3 % Normal 36.0-48.0 [facility] Comment on above: Performed By: #### 2 [id number] #### MARTHA RemHemo [address] [place] [address] Hemoglobin (Bld) [Mass/Vol] 14.5 g/dL Normal 12.0-16.0 [facility] Comment on above: Performed By: #### 2 [id number] #### MARTHA MoyerHemo [address] [place] [address] MCH (RBC) [Entitic mass] 28.1 pg Normal 27.0-31.0 [facility] Comment on above: Performed By: #### 2 [id number] #### MARTHA RemHemo [address] [place] [address] MCHC (RBC) [Mass/Vol] 33.6 g/dL Normal 33.0-37.0 [facility] Comment on above: Performed By: #### 2 [id number] #### MARTHA MoyerHemo [address] [place] [address] MCV (RBC) [Entitic vol] 83.5 fL Normal 78.0-100.0 [facility] Comment on above: Performed By: #### 2 667353 #### MARTHA RemHemo [address] [place] [address] Platelet mean volume (Bld) [Entitic vol] 8.1 fL Normal 7.4-11.0 [facility] Comment on above: Performed By: #### 2 769603 #### MARTHA RemHemo [address] [place] [address] Platelets (Bld) [#/Vol] 273 E3/mcL Normal 130-400 [facility] Comment on above: Performed By: #### 2 [id number] #### MARTHA RemHemo [address] [place] [address] RBC (Bld) [#/Vol] 5.18 E6/mcL Normal 3.90-5.40 [facility] Comment on above: Performed By: #### 2 [id number] #### MARTHA RemHemo [address] [place] [address] WBC (Bld) [#/Vol] 5.7 E3/mcL Normal 3.6-11.0 [facility] Comment on above: Performed By: #### 2 [id number] #### MARTHA [facility] [address] [place] [address] CT HEAD OR BRAIN WITHOUT CON TRASTon 07-11-2018 CT HEAD OR BRAIN WITHOUT CONTRAST EXAMINATION: CT OF THE HEAD WITHOUT CONTRAST 07/11/2018 TECHNIQUE: CT of the head was performed without the administration of intravenous contrast. Dose modulation, iterative reconstruction, and/or weight based adjustment of the mA/kV was utilized to reduce the radiation dose to as low as reasonably achievable. COMPARISON: MRI brain from 02/18/2016. HISTORY: ORDERING SYSTEM PROVIDED HISTORY: lower extremity weakness; TECHNOLOGIST PROVIDED HISTORY: Reason for Exam: lower extremity weakness Illness/Other Acuity: Acute Type of Encounter: Initial Additional signs and symptoms: lower extremity weakness ORDERING SYSTEM PROVIDED DIAGNOSIS CODES: R29.898 Weakness of lower extremity, unspecified laterality FINDINGS: BRAIN/VENTRICLES: There is no acute hemorrhage, herniation, or hydrocephalus. There is no acute territorial infarct. Only the genu of the corpus callosum is formed. The other segments have not formed. ORBITS: The visualized portion of the orbits demonstrate no acute abnormality. SINUSES: The visualized paranasal sinuses and mastoid air cells demonstrate no acute abnormality. SOFT TISSUES/SKULL: No acute abnormality of the visualized skull or soft tissues. IMPRESSION: No acute intracranial abnormality. Partial agenesis of the corpus callosum. /v Workstation ID: [id number] Dictated by: GEORGE DIEHL on WedJul 11, 2018 9:30:38 PM EST Transcribed by: WES CARRERA on WedJul 11, 2018 9:37:43 PM EST Finalized by: GEORGE DIEHL on [facility] Jul 16, 2018 9:38:[address] [facility] Comment on above: Order Comment: Reaso n for exam?:lower extremity weakness Injury/Trauma or Illness?:Illness/Other How long have you had these symptoms (acute/chronic)?:Acute Type of Exam?:Initial Additional signs and symptoms?:lower extremity weakness EKGon 07-11-2018 Ordered by an unspec ified provider. [facility] HCG (QUALITATIVE)on 07-12-19 19 HCG.beta subunit ( test) Ql Negative Negative [facility] Negative: The result is less than or equal to 5 mIU/mL of HCG. [facility] Hepatic Function Panel (LFT) on 07-11-2018 Albumin mass conc 4.0 g/dL 3.2 - 5.2 g/dL [facility] ALP enzyme act/vol 80 U/L 40 - 140 U/L [facility] ALT enzyme act/vol 19 U/L 0 - 40 U/L [facility] alth AST enzyme act/vol 14 U/L 0 - 45 U/L [facility] alth Bilirubin mass conc 0.3 mg/dL 0 - 1.3 mg/dL [facility] Bilirubin.conjugat ed mass conc mg/dL 0 - 0.4 mg/dL [facility] Interpretation and review of laboratory results Normal [facility] Protein mass conc 6.7 g/dL 6 - 8 g/dL [facility] Lactic Acid, Plasmaon 2018 Interpretation and review of laboratory results Normal [facility] Lactate molar conc 0.7 mmol/L 0.6 - 2 mmol/L [facility] Magnesiumon 07-11-2018 Magnesium [Mass/Vol] 1.5 Int._Unit/L Low 1.6-2.4 [facility] Comment on above: Performed By: #### 2 [id number] #### MARTHA RemHemo [address] [place] [address] Otheron 07-11-2018 Extra Tube Hold for add-ons. [facility] Comment on above: Auto resulted. Interpretation and review of laboratory results Normal [facility] TSH with Reflex Free T4on Thyrotropin Qn 1.35 m[IU]/L [facility] Comment on above: Please note reference range change as of 02/10/18. XR CHEST PA/APon 07-11-2018 XR CHEST PA/AP EXAMINATION: SINGLE XRAY VIEW OF THE CHEST 07/11/2018 8:14 pm COMPARISON: Chest x-ray January 14, 2014 HISTORY: ORDERING SYSTEM PROVIDED HISTORY: cough; TECHNOLOGIST PROVIDED HISTORY: Reason for Exam: cough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 Work Phone: [facility] Start: 06-11-2020 End: 06-13-2020 Evaluation and management of inpatient MIHAI DURGA Facility:[facility] Start: 05-08-2020 End: 05-09-2020 Subsequent hospital visit by physician Pj Bosch Work Phone: [facility] 3W TELEMETRY Start: 04-15-2020 End: 04-15-2020 Office outpatient visit 25 minutes Angeles Ford Work Phone: [facility] Comment on above: Intractable 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 (Primary Dx); Acute ischemic stroke (HCC); Essential hypertension; Hyperlipidemia, unspecified hyperlipidemia type; Seizures (HCC) Start: 12-11-2019 End: 12-11-2019 Emergency department patient visit Damaris Doty Work Phone: [facility] Emergency Dept Comment on above: Acute midline low ba ck pain with bilateral sciatica (Primary Dx) Start: 11-23-2019 End: 11-23-2019 Office outpatient visit 25 minutes Angeles Ford Work Phone: [facility] Comment on above: Acute ischemic strok e (HCC) (Primary Dx); 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; Seizures (HCC) Start: 08-08-2019 End: 08-08-2019 Patient encounter procedure Angeles Christopher Logan Work Phone: [facility] Comment on above: Bilateral leg weakne ss (Primary Dx); 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; Left arm pain; Seizures (HCC); Essential hypertension; Acute ischemic stroke (HCC) Start: 07-20-2019 End: 07-22-2019 Evaluation and management of inpatient Mireille Gallegos Work Phone: [facility] 3W TELEMETRY Comment on above: High anion gap metab olic acidosis (Primary Dx) Start: 01-25-2019 End: 01-25-2019 Office outpatient visit 15 minutes Eladia Jenny Casey Work Phone: [facility] Comment on above: 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 Start: 07-11-2018 End: 07-15-2018 Emergency department patient visit Tarsha Ness Work Phone: [facility] General Medicine Comment on above: Weakness of lower ex tremity, unspecified laterality (Primary Dx); Decreased sensation of lower extremity; Conversion disorder Start: 06-16-2018 End: 06-20-2018 Patient encounter procedure PROVIDER NOT IN SYSTEM [facility] Start: 11-23-2017 End: 11-23-2017 Office outpatient visit 15 minutes Eladia Jenny Casey Work Phone: [facility] Start: 04-07-2017 Office outpatient vi sit 15 minutes Eladia Jenny Casey Work Phone: [facility] Start: 02-24-2017 End: 02-24-2017 Emergency department patient visit [facility] Facility:[place] Procedures Date Procedure Procedure Detail Performing Clinician Start: 12-24-2023 Urnls dip stick/tabl et rgnt auto w/o microscopy Kearakelvin Dennis APRN.CNP Work Phone: Start: 07-15-2023 Urnls dip stick/tabl et rgnt auto w/o microscopy Panfilo Viramontes PA Work Phone: Start: 01-15-2023 Radiologic exam esop hagus single contrast study Charis Oakley MD Work Phone: Start: 07-10-2020 Echocardiography Start: 07-10-2020 Antibody screen Comment on above: Performed By: #### T +S #### [facility] [address] [place] [address] Start: 05-09-2020 End: 05-09-2020 Gluc bld gluc mntr dev cleared fda spec home use Pj Bosch Work Phone: Start: 05-09-2020 Blood count complete auto&auto difrntl wbc Pj Bosch Work Phone: Start: 05-08-2020 Gluc bld gluc mntr d ev cleared fda spec home use Pj Bosch Work Phone: Start: 05-08-2020 Mra head w/o contrst material John S Deoras Work Phone: Start: 05-08-2020 Mri brain brain stem w/o contrast material John S Deoras Work Phone: Start: 05-08-2020 Gluc bld gluc mntr d ev cleared fda spec home use Pj Bosch Work Phone: Start: 05-08-2020 Gluc bld gluc mntr d ev cleared fda spec home use Pj Bosch Work Phone: Start: 05-08-2020 EEG John S Zen dominic Work Phone: Start: 05-08-2020 Ecg routine ecg w/le ast 12 lds w/i&r Pj Bosch Work Phone: Start: 05-08-2020 Gluc bld gluc mntr d ev cleared fda spec home use Pj Bosch Work Phone: Start: 05-08-2020 Blood count complete auto&auto difrntl wbc Pj Bosch Work Phone: Start: 05-08-2020 Hemoglobin glycosylated a1c Pj Bosch Work Phone: Start: 05-08-2020 Lipid panel Pj crow Work Phone: Start: 12-11-2019 Basic metabolic pane l calcium total Damaris Doty Work Phone: Start: 12-11-2019 Gonadotropin chorion ic qualitative Damaris Doty Work Phone: Start: 12-11-2019 Mri spinal canal lum bar w/o contrast material Tarsha Tera Work Phone: Start: 12-11-2019 Ecg routine ecg w/le ast 12 lds w/i&r Almas Bravo Work Phone: Start: 12-11-2019 Blood count complete automated Almas Bravo Work Phone: Start: 12-11-2019 Blood typing serologic abo Almas Bravo Work Phone: Start: 12-11-2019 Prothrombin time Ángel Bravo Work Phone: Start: 07-22-2019 Gluc bld gluc mntr d ev cleared fda spec home use Zeinab Johanna Work Phone: Start: 07-22-2019 Gluc bld gluc mntr d ev cleared fda spec home use Zeinab Johanna Work Phone: Start: 07-22-2019 Mri spinal canal cer vical w/o & w/contr matrl Salvador Moreira Work Phone: Start: 07-22-2019 Blood count complete auto&auto difrntl wbc Salvador Moreira Work Phone: Start: 07-22-2019 BASIC METABOLIC PANE L W/ REFLEX TO MG FOR LOW K Salvadorlay Moreira Work Phone: Start: 07-21-2019 Gluc bld gluc mntr d ev cleared fda spec home use Zeinab Spencer Work Phone: Start: 07-21-2019 Gluc bld gluc mntr d ev cleared fda spec home use Zeinab Spencer Work Phone: Start: 07-21-2019 End: 07-21-2019 Gluc bld gluc mntr dev cleared fda spec home use Mireille Gallegos Work Phone: Start: 07-21-2019 Assay of troponin quantitative Lisa H Assaad Work Phone: Start: 07-21-2019 BASIC METABOLIC PANE L W/ REFLEX TO MG FOR LOW K Salvador Moreira Work Phone: Start: 07-21-2019 Blood count complete auto&auto difrntl wbc Salvador Moreira Work Phone: Start: 07-20-2019 Gluc bld gluc mntr d ev cleared fda spec home use Mireille Gallegos Work Phone: Start: 07-20-2019 Mri brain brain stem w/o w/contrast material Nuvia iPckard Work Phone: Start: 07-20-2019 Gluc bld gluc mntr d ev cleared fda spec home use Mireille Gallegos Work Phone: Start: 07-20-2019 EEG REPORT Raed Be Work Phone: Start: 07-20-2019 Assay of troponin quantitative Lisa H Assaad Work Phone: Start: 07-20-2019 EEG Nuvia Pickard Work Phone: Start: 07-20-2019 Echo tthrc r-t 2d w/ wom-mode compl spec&colr d Lisa H Assaad Work Phone: Start: 07-20-2019 Gluc bld gluc mntr d ev cleared fda spec home use Mireille Gallegos Work Phone: Start: 07-20-2019 Ct head/brain w/o co ntrast material Lisa Kingd Work Phone: Start: 07-20-2019 Ecg routine ecg w/le ast 12 lds w/i&r Lisa Kingd Work Phone: Start: 07-20-2019 Assay of magnesium Serafin Kingd Work Phone: Start: 07-20-2019 Assay of phosphorus inorganic Lisa H Fernandod Work Phone: Start: 07-20-2019 Assay of troponin quantitative Lisa H Fernandod Work Phone: Start: 07-20-2019 BASIC METABOLIC PANE L W/ REFLEX TO MG FOR LOW K Lisa Leongaad Work Phone: Start: 07-20-2019 Blood count complete auto&auto difrntl wbc Salvador Moreira Work Phone: Start: 07-20-2019 Calcium ionized Lisa Kingd Work Phone: Start: 07-20-2019 Hemoglobin glycosylated a1c Lisa Kingd Work Phone: Start: 07-20-2019 Ketone bodies serum quantitative Lisa Kingd Work Phone: Start: 07-20-2019 Lipid panel Lisa Guerrero A ssaad Work Phone: Start: 07-15-2018 Glucose [Mass/volume ] in Blood Soni Cano Work Phone: Start: 07-15-2018 Glucose [Mass/volume ] in Blood Generic [facility] Work Phone: Start: 07-15-2018 Glucose [Mass/volume ] in Blood [facility] Work Phone: Start: 07-14-2018 Glucose [Mass/volume ] in Blood Generic [facility] Work Phone: Start: 07-14-2018 Glucose [Mass/volume ] in Blood Generic [facility] Work Phone: Start: 07-14-2018 Glucose [Mass/volume ] in Blood Generic [facility] Work Phone: Start: 07-14-2018 Glucose [Mass/volume ] in Blood Generic [facility] Work Phone: Start: 07-13-2018 Glucose [Mass/volume ] in Blood Generic [facility] Work Phone: Start: 07-13-2018 Cell count and diffe rential, cerebrospinal fluid Yolanda Faith Work Phone: Start: 07-13-2018 Albumin serum plasma /whole blood Yolanda Faith Work Phone: Start: 07-13-2018 Oligoclonal immune Gualberto Faith Work Phone: Start: 07-13-2018 Other source albumin quantitative each specimen Yolanda Faith Work Phone: Start: 07-13-2018 Glucose [Mass/volume ] in Cerebral spinal fluid Yolanda Faith Work Phone: Start: 07-13-2018 Protein [Mass/volume ] in Cerebral spinal fluid Yolanda Faith Work Phone: Start: 07-13-2018 Spinal puncture lumb ar diagnostic Yolanda Faith Work Phone: Start: 07-13-2018 Glucose [Mass/volume ] in Blood Generic [facility] Work Phone: Start: 07-13-2018 INR in Platelet poor plasma by Coagulation assay Og Rossi Work Phone: Start: 07-13-2018 Us retroperitoneal r eal time w/image limited Og Rossi Work Phone: Start: 07-13-2018 Glucose [Mass/volume ] in Blood Generic [facility] Work Phone: Start: 07-13-2018 Basic metabolic 2000 panel - Serum or Plasma Og Rossi Work Phone: Start: 07-13-2018 Complete blood count (hemogram) panel - Blood by Automated count Og Rossi Work Phone: Start: 07-13-2018 Glucose [Mass/volume ] in Blood Generic [facility] Work Phone: Start: 07-13-2018 MRI of thoracic spine S inez Faith Work Phone: Start: 07-13-2018 MRI of lumbar spine Sag corbin Faith Work Phone: Start: 07-12-2018 Glucose [Mass/volume ] in Blood [facility] Work Phone: Start: 07-12-2018 Glucose [Mass/volume ] in Blood [facility] Work Phone: Start: 07-12-2018 Glucose [Mass/volume ] in Blood Generic [facility] Work Phone: Start: 07-12-2018 Basic metabolic 2000 panel - Serum or Plasma Soni Cano Work Phone: Start: 07-12-2018 Creatine kinase [Enz ymatic activity/volume] in Serum or Plasma Og Rossi Work Phone: Start: 07-12-2018 Magnesium [Mass/volu me] in Serum or Plasma Og Zamoraups Work Phone: Start: 07-12-2018 Complete blood count (hemogram) panel - Blood by Automated count Soni Cano Work Phone: Start: 07-12-2018 Glucose [Mass/volume ] in Blood Generic [facility] Work Phone: Start: 07-12-2018 CT of head without contrast Tarsha Ness Work Phone: Start: 07-12-2018 Radiologic exam ches t single view Tarsha Ness Work Phone: Start: 07-12-2018 RESPIRATORY PARAMETERS Tarsha Ness Work Phone: Start: 07-12-2018 Basic metabolic 2000 panel - Serum or Plasma Tarsha Ness Work Phone: Start: 07-12-2018 Calcium.ionized [Mass/volume] in Serum or Plasma Og Rossi Work Phone: Start: 07-12-2018 Choriogonadotropin.b eta subunit ( test) [Presence] in Serum or Plasma Tarsha Ness Work Phone: Start: 07-12-2018 Complete blood count with white cell differential, automated Tarsha Ness Work Phone: Start: 07-12-2018 Complete blood count with white cell differential, manual Tarsha Ness Work Phone: Start: 07-12-2018 Cyanocobalamin vitamin b-12 Og Rossi Work Phone: Start: 07-12-2018 MARTINEZ TOP Tarsha Chong Work Phone: Start: 07-12-2018 Hepatic function 200 0 panel - Serum or Plasma Tarsha Ness Work Phone: Start: 07-12-2018 Lactate [Moles/volum e] in Serum or Plasma Tarsha Ness Work Phone: Start: 07-12-2018 LAVENDER TOP Tarsha Chong Work Phone: Start: 07-12-2018 LIGHT BLUE TOP Tarsha Ness Work Phone: Start: 07-12-2018 LIGHT GREEN TOP Tarsha Ness Work Phone: Start: 07-12-2018 MINT GREEN TOP Tarsha Ness Work Phone: Start: 07-12-2018 RAINBOW DRAW Tarsha Chong Work Phone: Start: 07-12-2018 Thyrotropin [Units/v olume] in Serum or Plasma by Detection limit <= 0.005 mIU/L Tarsha Ness Work Phone: Start: 07-11-2018 Electrocardiogram Provi paris Not In System Plan of Treatment Date Care Activity Detail Author Start: 01-09-2024 Influenza vaccination [facility] Start: 05-10-2023 Behavioral Health Screening Behavioral Health Screening [facility] Start: 05-10-2023 Depression Assessment Depression Assessment [facility] Start: 01-08-2023 Covid-19 Vaccine () Covid-19 Vaccine () [facility] Start: 01-08-2023 Influenza vaccination [facility] Start: 09-21-2022 End: 09-21-2022 Patient encounter procedure 09/21/2022 Office Visit Neurology Angeles Ford II, MD [address] [address] [facility] Start: 05-10-2022 DEPRESSION ASSESSMENT DEPRESSION ASSESSMENT [facility] Start: 01-08-2022 Influenza vaccination Sequential Influenza Vaccine (#1) [facility] Start: 2021 Mammography MAMMOGRAM [facility] Start: 2021 Screening for malignant neoplasm of breast [facility] Start: 05-08-2021 HbA1c (Bld) [Mass fraction] A1C test (Diabetic or Prediabetic) [place], [place] Start: 05-08-2021 Lipid panel Lipid screen [place] Start: 01-08-2021 Influenza vaccination Sequential Influenza Vaccine (#1) [facility] Start: 09-09-2020 Hemoglobin A1c measurement [facility] Start: 08-16-2020 End: 08-16-2020 Telemedicine 08/16/2020 Telemedicine Neurology Angeles Ford II, MD [address] [address] [phone] [facility] Start: 07-19-2020 HbA1c (Bld) [Mass fraction] A1C test (Diabetic or Prediabetic) [place] Start: 07-19-2020 Lipid panel Lipid screen [place] Start: 04-15-2020 End: 04-15-2020 Office Visit 04/15/2020 Office Visit Neurology Angeles Ford II, MD [address] [address] [phone] [facility] Start: 01-09-2020 Influenza vaccination Flu vaccine (#1) [place] Start: 01-09-2020 Influenza vaccination given Sequential Influenza Vaccine (#1) [facility] Start: 11-23-2019 End: 11-23-2019 Office Visit 11/23/2019 Office Visit Neurology Angeles Ford II, MD [address] [address] [phone] [facility] Start: 07-28-2019 End: 07-21-2020 Renal Function Panel Renal Function Panel Lab Routine High anion gap metabolic acidosis Expected: 07/28/2019, Expires: 07/21/2020 [place] Comment on above: Expected: 07/28/2019, Expires: Start: 07-24-2019 End: 07-24-2019 Office Visit 07/24/2019 Office Visit Neurology Angeles Ford II, MD [address] [address] [phone] [facility] Start: 07-21-2019 Annual Wellness Visit (AWV) Annual Wellness Visit (AWV) [place] Start: 01-08-2019 Influenza vaccination Flu vaccine (#1) [place] Start: 01-08-2019 Influenza vaccination given Sequential Influenza Vaccine (#1) [facility] Start: 12-26-2018 End: 12-26-2018 Office Visit 12/26/2018 Office Visit Neurology Angeles Ford II, MD [address] [address] [phone] [facility] Start: 12-09-2018 Hepatitis B surface antibody level LDL CHOLESTEROL [facility] Start: 09-07-2018 Hemoglobin A1c/Hemoglobin.total mass fraction (Bld) HEMOGLOBIN A1C [facility] Start: 07-19-2018 End: 07-19-2018 Office Visit 07/19/2018 Office Visit Neurology Casey, Eladia Alvarado, ACCOUNTING COORDINATOR [address] [place] [address] [phone] [facility] Start: 06-10-2018 Hemoglobin A1c/Hemoglobin.total in Blood HBA1C [facility] Start: 01-08-2018 Influenza vaccination SEQUENTIAL INFLUENZA VACCINE (#1) [facility] Start: 01-08-2018 Influenza vaccination given SEQUENTIAL INFLUENZA VACCINE (#1) [facility] Start: 07-08-2017 Ambulatory [facility] Start: 01-08-2017 Influenza vaccination SEQUENTIAL INFLUENZA VACCINE (#1) [facility] Work Phone: Start: 08-18-2016 Hemoglobin A1c measurement A1C [facility] Start: 08-18-2016 Hemoglobin A1c/Hemoglobin.total mass fraction (Bld) [facility] Work Phone: Start: 07-30-2014 Pneumococcal vaccination Pneumococcal Vaccine (2 of 2 - PCV) [facility] Start: 07-30-2014 Pneumococcal Vaccine: Ped or At-Risk (2 - PCV) Pneumococcal Vaccine: Ped or At-Risk (2 - PCV) [facility] Start: 07-30-2014 Pneumococcal Vaccine: Ped or At-Risk (2 of 2 - PCV) Pneumococcal Vaccine: Ped or At-Risk (2 of 2 - PCV) [facility] Start: 05-26-2014 3 comp foot exam completed DIABETIC FOOT EXAM [facility] Start: 05-26-2014 Diabetic foot examination Diabetic Foot Exam [facility] Start: 04-03-2014 Glaucoma screening Dilated Retinal Exam [facility] Start: 04-03-2014 Hepatitis C antibody, confirmatory test DILATED RETINAL EXAM [facility] Start: 09-14-2011 Screening for malignant neoplasm of cervix [facility] Start: 08-26-2007 PNEUMOCOCCAL (2 - PCV) PNEUMOCOCCAL (2 - PCV) [facility] Start: 2002 Screening for malignant neoplasm of cervix [facility] Start: 2000 DTaP/Tdap/Td vaccine (1 - Tdap) DTaP/Tdap/Td vaccine (1 - Tdap) [place] Start: 2000 Hepatitis B vaccine (1 of 3 - Risk 3-dose series) Hepatitis B vaccine (1 of 3 - Risk 3-dose series) [place] Start: 2000 Urine microalbumin profile [facility] Start: 09-14-1999 ANNUAL PCP TEAM CHRONIC DISEASE VISIT ANNUAL PCP TEAM CHRONIC DISEASE VISIT [facility] Start: 09-14-1999 Depression Screening Depression Screening [facility] Start: 09-14-1999 Diabetic microalbuminuria test Diabetic microalbuminuria test [place] Start: 09-14-1999 Hepatitis C antibody, confirmatory test Hepatitis C Screening [facility] Start: 09-14-1999 Hepatitis C screening Hepatitis C Screening [facility] Start: 1997 COVID-19 Vaccine (1 of 2) COVID-19 Vaccine (1 of 2) [facility] Start: 1997 COVID-19 Vaccine (1) COVID-19 Vaccine (1) [facility] Start: 1996 HIV screening [facility] Start: 1993 Adolescent depression screening assessment Depression Screening (PHQ9) [facility] Start: 1993 COVID-19 Vaccine (1) COVID-19 Vaccine (1) [facility] Start: 1993 Depression screening using PHQ-9 (Patient Health Questionnaire 9) score [facility] Start: 09-14-1991 Diabetic foot examination (regime/therapy) [facility] Start: 09-14-1991 Diabetic retinal exam Diabetic retinal exam [place], [place] Start: 09-14-1991 Glaucoma screening [facility] Start: 09-14-1991 Microalbumin measurement, urine, quantitative Urine Microalbumin [facility] Start: 09-14-1991 Ophthalmic examination and evaluation OPHTHALMOLOGY EXAM [facility] Start: 09-14-1991 Urine screening for protein Urine Microalbumin [facility] Start: 09-14-1991 Urine, microalbumin URINE MICROALBUMIN [facility] Work Phone: Start: 09-14-1987 Pneumococcal 0-64 years Vaccine (1 of 1 - PPSV23) Pneumococcal 0-64 years Vaccine (1 of 1 - PPSV23) [place] Start: 09-14-1987 Pneumococcal Vaccine: Ped or At-Risk (1 of 2 - PPSV23) Pneumococcal Vaccine: Ped or At-Risk (1 of 2 - PPSV23) [facility] Start: 1984 History and physical examination, annual for health maintenance Wellness Visit [facility] Start: 1984 Medicare Wellness Visit Medicare Wellness Visit [facility] Start: 1982 Varicella vaccine (1 of 2 - 2-dose childhood series) Varicella vaccine (1 of 2 - 2-dose childhood series) [place] Start: 03-16-1982 COVID-19 Vaccine (#1) COVID-19 Vaccine (#1) [facility] Start: 1981 Hepatitis C screening Hepatitis C screen [place] Start: 1981 Screening for malignant neoplasm of cervix PAP SMEAR [facility] Start: 1981 Tetanus vaccination [facility] Bacteria identified in Urine by Culture URINE CULTURE Microbiology Routine Burning with urination 12/24/2023 10:55 AM EDT [facility] Work Phone: Basic Metabolic Pane l w/ Reflex to MG Basic Metabolic Panel w/ Reflex to MG Lab Routine Daily until discontinued starting 07/20/2019, 2 completed [facility] [place] Comment on above: Daily until discontinued starting 2019, 2 completed End: 07-20-2019 Blood Occult Stool Screen #1 Blood Occult Stool Screen #1 Lab Routine One Time for 1 Occurrences starting 07/20/2019 until 07/20/2019 [facility] [place] Comment on above: One Time for 1 Occurrences starting 07/08 until 07/20/2019 CBC auto differential CBC auto d ifferential Lab Routine Daily until discontinued starting 07/20/2019, 3 completed [facility] [place] Comment on above: Daily until discontinued starting 2019, [address] of head without contrast CT Head Or Brain Without Contrast OBED 07/11/2018 9:19 PM EST [facility] HHN Treatment HHN Treatment Respiratory Care Routine 0600, 1000, 1400, 1800, 2200 until discontinued starting 07/20/2019 [facility] [place] Comment on above: 0600, 1000, 1400, 1800, 2200 until disco ntinued starting 07/20/2019 Hold CSF Specimen in Lab Hold CS F Specimen in Lab Routine Once for 1 Occurrences starting 07/13/2018 [facility] Comment on above: Once for 1 Occurrences starting 07/14/19 End: 05-08-2020 MRV HEAD W WO CONTRAST MRV HEAD W WO CONTRAST Imaging Routine Once for 1 Occurrences starting 05/08/2020 until 05/08/2020 [facility] [place] Comment on above: Once for 1 Occurrences starting 05/08/20 20 until 05/08/2020 MRV HEAD W WO CONTRAST MRV HEAD W WO CONTRAST Imaging Routine 05/08/2020 6:09 PM EST [place] Oxygen therapy [[facility]] Initiate Oxygen Therapy Protocol Respiratory Care Routine Daily until discontinued starting 05/08/2020 [place] Comment on above: Daily until discontinued starting 2019 POCT Glucose [place] Comment on above: As Needed until discontinued starting 4X Daily (AC & HS) u ntil discontinued starting 07/21/2019 4X Daily (AC & HS) u ntil discontinued starting 05/08/2020 As Needed until disc ontinued starting 05/08/2020 End: 05-08-2020 , urine , urine Lab Routine One Time for 1 Occurrences starting 05/08/2020 until 05/08/2020 [place] Comment on above: One Time for 1 Occurrences starting 04/11 until 05/08/2020 End: 07-20-2019 Urinalysis Urinalysis Lab Routine One Time for 1 Occurrences starting 07/20/2019 until 07/20/2019 [place] Comment on above: One Time for 1 Occurrences starting 07/08 until 07/20/2019 End: 07-20-2019 URINE DRUG SCREEN URINE DRUG SCREEN Lab Routine One Time for 1 Occurrences starting 07/20/2019 until 07/20/2019 [place] Comment on above: One Time for 1 Occurrences starting 07/08 until 07/20/2019 Immunizations Immunization Date Immunization Notes Care Provider [facility] 03-10-2018 HEMOGLOBIN A1C Tarsha Ness [facility] 02-09-2018 influenza virus vacc ine, unspecified formulation Carolyn Gamino MD Work Phone: [facility] 02-19-2016 influenza, injectabl e, quadrivalent, preservative free; Translations: [INFLUENZA IIV4 3YO OR > FLUARIX/FLUZONE/AFLURIA 33669] Eladia Peña [facility] 01-04-2015 influenza virus vacc ine, unspecified formulation Mireille Rosy [place], [place] 03-26-2007 influenza virus vacc ine, whole virus Jhonny Valladares Work Phone: [facility] 08-25-2006 pneumococcal polysaccharide vaccine, 23 valent Jhonny Valladares Work Phone: [facility] Payers Date Payer Category Payer Unknown [id number] 2018 Medicare xxxxxxxxx [id number] [id number] 2018 Medicare [id number] 1.2.8 [id number] 2018 Medicare [id number] 2018 Medicaid xxxxxxxxxxxx 1. [id number] 2018 Medicaid [id number] 1. [id number] 2018 Medicaid [id number] 2014 Medicaid [id number] 2. [id number] 2014 Medicare [id number] 2. [id number] 2006 Medicare [id number] 2006 Medicare [id number] 1981 Unknown [id number] 2.16.8 [id number] 1981 Unknown [id number] 2.16.8 [id number] 1981 Unknown [id number] 2.16.8 [id number] 1981 Unknown [id number] 2.16. [id number] 1981 Unknown [id number] 2.16. [id number] 1981 Unknown [id number] 2.16.84 [id number] 1981 Unknown [id number] 2.16.84 [id number] 1981 Unknown [id number] 2.16.84 [id number] 1981 Unknown [id number] 2.16.84 [id number] 1981 Unknown [id number] 2.16. [id number] 1981 Unknown [id number] 2.16. [id number] 1981 Unknown [id number] 2.16. [id number] Medicare [id number] Unknown Social History Date Type Detail Facility Start: 04-07-2017 End: 03-24-2022 Tobacco smoking status ORIS Never smoker [facility] Start: 1980 Sex Assigned At Not on file [facility] Work Phone: Start: 07-21-2019 End: 12-24-2023 Alcohol intake Current drinker of alcohol (finding) [facility] Start: 07-20-2019 Alcohol Comment rarely [employer] Start: 12-11-2019 End: 01-13-2023 Tobacco use and exposure Never used [employer] Start: 03-14-2022 End: 03-24-2022 Exposure to SARS-CoV-2 (event) Not sure [employer] Tobacco smoking consumption unknown [facility] Start: 01-15-2010 End: 01-13-2023 Tobacco smoking status NHIS Ex-smoker [facility] Start: 09-16-1996 End: 09-16-1998 History of tobacco use Current smoker [facility] Start: 09-16-1996 End: 09-16-1998 History of tobacco use Cigarette Smoker [facility] Start: 02-07-2020 End: 01-13-2023 History of Social function [facility] Start: 02-07-2020 End: 01-13-2023 Alcohol Use Disorder Identification Test - Consumption [AUDIT-C] [facility] How often to you hav e a drink containing alcohol? Monthly or less [facility] How many standard dr inks containing alcohol do you have on a typical day? 1 or 2 [facility] How often do you hav e 6 or more drinks on 1 occasion? Never [facility] National Score (1-10 0), lower number is lower risk Not on file [facility] Start: 12-21-2016 Alcohol Comment rare [facility] Start: 01-13-2023 Tobacco Comment Smoked in high school x 2 years, 3-4 cigarettes a day [facility] Start: 07-11-2018 Gender identity Identifies as female gender (finding) [facility] Start: 07-11-2018 Sexual orientation Heterosexual (finding) [facility] Medical Equipment Procedure Code Equipment Code Equipment Origin al Text Equipment Identifier Dates [id number] Start: 10-04-2009 End: 07-11-2018 Comment on above: Test Blood sugars on ce daily Test Blood sugar s once daily [id number] Start: 10-04-2009 End: 07-11-2018 Use as directed 4 times a day [id number] Start: 01-14-2018 End: 07-11-2018 Test Blood sugar s once daily [id number] Start: 10-04-2009 Clinical Notes 09-06-2014 to 12-25-2023 Telephone Encounter - Jeffery Wolff MA - 12/25/2023 12:59 PM EDTTelephone Encounter - Jeffery Wolff MA - 12/25/2023 12:59 PM JASONTElba Bonilla APRN.[facility] - 12/24/2023 11:49 AM EDT Note Date & Type Note Facility 12-25-2023 Telephone encounter Note Patient notified of results, verbalized understanding of instructions given. Jeffery Wolff MA [facility] 12-25-2023 Miscellaneous Notes Patient notified of results, verbalized understanding of instructions given. Jeffery Wolff MA Urine culture did not show a clear infection. She may finish antibiotic if helping and follow up with PCP, urology, or OUTLET MANAGER if symptoms persist. documented in this encounter [facility] 12-25-2023 Telephone encounter Note Urine culture did not show a clear infection. She may finish antibiotic if helping and follow up with PCP, urology, or OUTLET MANAGER if symptoms persist. [facility] Work Phone: 12-24-2023 Note HNO ID: [id number] Author: ELBA BONILLA APRN.ACCOUNTING COORDINATOR Service: ? Author Type: Nurse Practitioner Type: Progress Notes Filed: 12/24/2023 11:51 Note Text: Subjective HPI HPI Delmy Buchanan is a 43 year old female who presents today for CC of urinary urgency, frequency, burning. This started 5 days ago. Has tried nothing for relief. Symptoms are worsened by nothing. Risk factors hx of uti, hospitalized this year for uti. .Patient presents with: Urinary Problem: Burning, frequency, fever x 5 days PAST MEDICAL HISTORY 01/09/2010: Acute gastritis without mention of hemorrhage 03/15/2006: AVM OF BRAIN Comment: Left frontal, small, developmental 05/27/2005: Calculus of kidney 04/27/2013: Chronic abdominal pain syndrome 02/16/2007: Conversion disorder 06/11/2011: Conversion disorder (or hysterical neurosis, conversion type) 03/07/2012: DDD (degenerative disc disease), lumbar 09/29/2007: DEPRESSIVE DISORDER NEC 09/29/2007: Depressive disorder, not elsewhere classified 12/01/2007: DIABETES MELLITUS TYPE II-UNCOMPL No date: Epilepsy complicating , childbirth, or the puerperium, unspecified as to episode of care or not applicable(649. 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 02/16/2007: Headache(784.0) 01/19/2020: Hypothyroidism 06/26/2006: IRRITABLE COLON No date: Migraine without aura 03/24/2007: MYELOPATHY NEC 08/12/2011: ALFONSO (obstructive sleep apnea) 01/27/2008: Polycystic ovaries 08/12/2011: RLS (restless legs syndrome) PAST SURGICAL HISTORY 12/01/2012: ABD EMBOLIZATION W/ANGIO Comment: Left Ovarian Vein embolization 2005: DELIVERY ONLY Comment: , low cervical 2001: CHOLECYSTECTOMY Comment: Cholecystectomy 04/24/13: EGD TRANSORAL BIOPSY SINGLE/MULTIPLE Comment: Gastritis 01/09/2010: ESOPHAGOGASTRODUODENOSCOPY TRANSORAL DIAGNOSTIC Comment: EGD 01/28/2018: ESOPHAGOGASTRODUODENOSCOPY TRANSORAL DIAGNOSTIC Comment: EGD 01/22/2020: ESOPHAGOGASTRODUODENOSCOPY TRANSORAL DIAGNOSTIC Comment: EGD 1999: PAST SURGICAL HISTORY OF Comment: fx right fibula 08/2003: PAST SURGICAL HISTORY OF Comment: stent in right kidney 01/2008: PAST SURGICAL HISTORY OF Comment: right hallux- scar tissue extensor tendon 08/26/10: PAST SURGICAL HISTORY OF Comment: laprascopic right salpingectomy [facility] Dr. Lyle 12/2014: PAST SURGICAL HISTORY OF; Left Comment: post tibial tendon repair 05/2015: PAST SURGICAL HISTORY OF; Right Comment: Repair Post tibial tendon 12/2016: PAST SURGICAL HISTORY OF; Right Comment: Repair Rt perineal tendon 09/2015: S PK LAV [id number] Comment: lavhbs ALLERGIES Contrast Dye, Metformin, Morphine, Nortriptyline, and Sulfa (Sulfonamide Antibiotics) MEDICATIONS tirzepatide (MOUNJARO) 12.5 mg/0.5 mL pen injector Inject 12.5 mg subcutaneously one time a week. omeprazole (PRILOSEC) 40 mg capsule Take 1 capsule by mouth once daily. JARDIANCE 25 mg tablet Take 1 tablet by mouth once daily. ezetimibe (ZETIA) 10 mg tablet Take 10 mg by mouth once daily. icosapent ethyl 1 gram Take 2 capsules by mouth twice daily. pravastatin (PRAVACHOL) 20 mg tablet Take 20 mg by mouth daily at bedtime. CO Q-10 200 mg cap Take 1 capsule by mouth once daily. meloxicam (MOBIC) 15 mg tablet Take 15 mg by mouth once daily. clopidogrel (PLAVIX) 75 mg tablet clopidogrel Clopidogrel Bisulfate Active 75 MG DAILY December 10, 2019 10:38pm 12-10-2019 [facility] ([id number]) pentoxifylline ER (TRENTAL) 400 mg CR tablet Take 1 tablet by mouth three times daily with meals. cholecalciferol, Vitamin D3, (VITAMIN D3) 50,000 unit cap capsule Take 1 capsule by mouth once each week. insulin glargine (LANTUS SOLOSTAR) 100 unit/mL (3 mL) inpn Inject 10 Units subcutaneously once daily. gabapentin (NEURONTIN) 100 mg capsule Take 800 mg by mouth three times daily. 300MG TAB 5 TIMES PER DAY ondansetron (ZOFRAN, HYDROCHLORIDE,) 4 mg tablet Take 1 tablet by mouth every 12 hours as needed for Nausea/Vomiting (for nausea.). Topiramate (TOPAMAX) 50 mg tablet Take 50 mg by mouth once daily. thyroid (ARMOUR THYROID) 30 mg tablet Take 30 mg by mouth once daily. Blood Sugar Diagnostic, Drum (ACCU-CHEK COMPACT TEST) strp Test before and after every meal and at HS daily as directed, diabetes uncontrolled, multiple doses insulin per day, 250.02 Insulin [place], Disposable, (PEN NEEDLE) 29 x 1/2 Ndle use four times daily with each dose of insulin ac and hs lancets(ACCU-CHEK SOFTCLIX LANCETS) Test Blood sugars once daily cephALEXin (KEFLEX) 500 mg capsule Take 1 capsule by mouth two times a day for 7 days. FAMILY HISTORY Problem Relation Age of Onset Arthritis Mother Heart Father angina Hypertension Father Diabetes Maternal Grandmother TYPE II Colon Cancer Maternal Aunt Social History Tobacco Use Smokin (more content not included)... [facility] 12-24-2023 History of Present illness Narrative Subjective HPI HPI Delmy Buchanan is a 43 year old female who presents today for CC of urinary urgency, frequency, burning. This started 5 days ago. Has tried nothing for relief. Symptoms are worsened by nothing. Risk factors hx of uti, hospitalized this year for uti. .Patient presents with: Urinary Problem: Burning, frequency, fever x 5 days PAST MEDICAL HISTORY 01/09/2010: Acute gastritis without mention of hemorrhage 03/15/2006: AVM OF BRAIN Comment: Left frontal, small, developmental 05/27/2005: Calculus of kidney 04/27/2013: Chronic abdominal pain syndrome 02/16/2007: Conversion disorder 06/11/2011: Conversion disorder (or hysterical neurosis, conversion type) 03/07/2012: DDD (degenerative disc disease), lumbar 09/29/2007: DEPRESSIVE DISORDER NEC 09/29/2007: Depressive disorder, not elsewhere classified 12/01/2007: DIABETES MELLITUS TYPE II-UNCOMPL No date: Epilepsy complicating , childbirth, or the puerperium, unspecified as to episode of care or not applicable(649. 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 02/16/2007: Headache(784.0) 01/19/2020: Hypothyroidism 06/26/2006: IRRITABLE COLON No date: Migraine without aura 03/24/2007: MYELOPATHY NEC 08/12/2011: ALFONSO (obstructive sleep apnea) 01/27/2008: Polycystic ovaries 08/12/2011: RLS (restless legs syndrome) PAST SURGICAL HISTORY 12/01/2012: ABD EMBOLIZATION W/ANGIO Comment: Left Ovarian Vein embolization 2005: DELIVERY ONLY Comment: , low cervical 2001: CHOLECYSTECTOMY Comment: Cholecystectomy 04/24/13: EGD TRANSORAL BIOPSY SINGLE/MULTIPLE Comment: Gastritis 01/09/2010: ESOPHAGOGASTRODUODENOSCOPY TRANSORAL DIAGNOSTIC Comment: EGD 01/28/2018: ESOPHAGOGASTRODUODENOSCOPY TRANSORAL DIAGNOSTIC Comment: EGD 01/22/2020: ESOPHAGOGASTRODUODENOSCOPY TRANSORAL DIAGNOSTIC Comment: EGD 1999: PAST SURGICAL HISTORY OF Comment: fx right fibula 08/2003: PAST SURGICAL HISTORY OF Comment: stent in right kidney 01/2008: PAST SURGICAL HISTORY OF Comment: right hallux- scar tissue extensor tendon 08/26/10: PAST SURGICAL HISTORY OF Comment: laprascopic right salpingectomy [facility] Dr. Lyle 12/2014: PAST SURGICAL HISTORY OF; Left Comment: post tibial tendon repair 05/2015: PAST SURGICAL HISTORY OF; Right Comment: Repair Post tibial tendon 12/2016: PAST SURGICAL HISTORY OF; Right Comment: Repair Rt perineal tendon 09/2015: S PK [facility] [id number] Comment: lavhbs ALLERGIES Contrast Dye, Metformin, Morphine, Nortriptyline, and Sulfa (Sulfonamide Antibiotics) MEDICATIONS tirzepatide (MOUNJARO) 12.5 mg/0.5 mL pen injector Inject 12.5 mg subcutaneously one time a week. omeprazole (PRILOSEC) 40 mg capsule Take 1 capsule by mouth once daily. JARDIANCE 25 mg tablet Take 1 tablet by mouth once daily. ezetimibe (ZETIA) 10 mg tablet Take 10 mg by mouth once daily. icosapent ethyl 1 gram Take 2 capsules by mouth twice daily. pravastatin (PRAVACHOL) 20 mg tablet Take 20 mg by mouth daily at bedtime. CO Q-10 200 mg cap Take 1 capsule by mouth once daily. meloxicam (MOBIC) 15 mg tablet Take 15 mg by mouth once daily. clopidogrel (PLAVIX) 75 mg tablet clopidogrel Clopidogrel Bisulfate Active 75 MG DAILY December 10, 2019 10:38pm 12-10-2019 [facility] ([id number]) pentoxifylline ER (TRENTAL) 400 mg CR tablet Take 1 tablet by mouth three times daily with meals. cholecalciferol, Vitamin D3, (VITAMIN D3) 50,000 unit cap capsule Take 1 capsule by mouth once each week. insulin glargine (LANTUS SOLOSTAR) 100 unit/mL (3 mL) inpn Inject 10 Units subcutaneously once daily. gabapentin (NEURONTIN) 100 mg capsule Take 800 mg by mouth three times daily. 300MG TAB 5 TIMES PER DAY ondansetron (ZOFRAN, HYDROCHLORIDE,) 4 mg tablet Take 1 tablet by mouth every 12 hours as needed for Nausea/Vomiting (for nausea.). Topiramate (TOPAMAX) 50 mg tablet Take 50 mg by mouth once daily. thyroid (ARMOUR THYROID) 30 mg tablet Take 30 mg by mouth once daily. Blood Sugar Diagnostic, Drum (ACCU-CHEK COMPACT TEST) strp Test before and after every meal and at HS daily as directed, diabetes uncontrolled, multiple doses insulin per day, 250.02 Insulin [place], Disposable, (PEN NEEDLE) 29 x 1/2 Ndle use four times daily with each dose of insulin ac and hs lancets(ACCU-CHEK SOFTCLIX LANCETS) Test Blood sugars once daily cephALEXin (KEFLEX) 500 mg capsule Take 1 capsule by mouth two times a day for 7 days. FAMILY HISTORY Problem Relation Age of Onset Arthritis Mother Heart Father angina Hypertension Father Diabetes Maternal Grandmother TYPE II Colon Cancer Maternal Aunt Social History Tobacco Use Smoking status: Former Years: 2 Types: Cigarettes Quit date: 09/16/1998 Years since quittin.2 Smokeless tobacco: Never Tobacco comments: Smoked in high school x 2 years, 3-4 cigarettes a day Vaping Use Vaping Use: current everyday user Substances: Nicotine Substance Use Topics Alcohol use: Yes Comment: rare Drug use: Yes Types: Marijuana Comment: CBD OIL 500mg daily Review of Systems Constitutional: Negative for chills, fever and weight loss. Respiratory: Negative for cough, shortness of breath and wheezing. Cardiovascular: Negative for chest pain and palpitations. Gastrointestinal: Negative for abdominal pain, blood in stool, constipation, diarrhea, heartburn, melena, nausea and vomiting. Genitourinary: Positive for dysuria, frequency and urgency. Negative for flank pain and hematuria. Objective Blood pressure 114/79, pulse 99, temperature 36.5 C (97.7 F), resp. rate 20, weight 72 kg (158 lb 11.7 oz), last menstrual period 09/07/2015, SpO2 100%. Physical Exam Constitutional: General: She is not in acute distress. Appearance: Normal appearance. She is not toxic-appearing. Cardiovascular: Rate and Rhythm: Normal rate and regular rhythm. Heart sounds: Normal heart sounds. Pulmonary: Effort: Pulmonary effort is normal. Breath sounds: Normal breath sounds. Abdominal: General: Bowel sounds are normal. Palpations: Abdomen is soft. Tenderness: There is no abdominal tenderness. Skin: General: Skin is warm and dry. ASSESSMENT/PLAN: 1. Burning with urination - ICD9: 788.1, ICD10: R30.0 acute - Send urine for culture - Begin treatment with cephalexin for 7 days - Patient education for prevention given - UA DIP, URINE (POC) - URINE CULTURE - CEPHALEXIN 500 MG CAPSULE Elba Bonilla APRN.ACCOUNTING COORDINATOR documented in this encounter [facility] 11-30-2023 History of Present illness Narrative NEUROLOGY Outpatient virtual visit FOLLOW-UP [facility] [phone] (office) / [phone] (fax) [facility] [address] [place] [phone] Virtual Visit [facility] 11/30/23 Nakita Mccabe CNP Provider Location: Patient Location Plastic Mixer: None Patient Location: home Patient: Delmy Buchanan Date of : 1980 (43 y.o. female) PCP: Charis Espinal MD Neurologist: Angeles Ford MD I instructed patient to contact me promptly with additional concerns. Virtual Visit Consent Statement: I discussed risks, benefits and alternatives of telemedicine consultation with the patient (and any accompanying persons) including the risks that the patient s personal health details and medical records will be discussed over interactive video/audio/telecommunication technology, may be recorded, and that there are inherent diagnostic limitations compared to [id number]-qi-[id number] evaluations. They elected to proceed with the telemedicine consultation. ASSESSMENT/PLAN: Ms. Buchanan is a 43 y.o. female who is doing a telemedicine consultation over video for a follow up. Seizure- Last possible seizure was 01/2023, prior to that was 6 years ago. Patient as been off Vimpat since May due to weight loss. PLAN: Will start Vimpat 50 mg BID Patient is also on Gabapentin 800 mg TID which could be used as an AED as well Calcium/vitamin D supplementation is also recommended, as antiepileptic medications can lead to osteoporosis. We discussed seizure lowering risk factors including ETOH use, illicit drug use, lack of sleep, stress, illness, and medication noncompliance. ETOH and illicit drug cessation strongly advised. The patient is advised to avoid dangerous behaviors including, but not limited to, swimming alone, bathing alone, cooking with an open flame, operating firearms, carrying or holding small children, working from heights, and driving. The patient is legally obliged to self-report to the [facility] in the setting of ongoing episodes of altered consciousness, for at least 3 months from date of last spell of altered awareness. The patient indicates full understanding of these restrictions and obligations and voiced his/her intent to comply with this legal responsibility. Follow up with Dr. Ford in 3 months Chief complaint: Seizures Interval History: Patient last seen by me in January. It was thought that she had a seizure. She was sending a voice alexey to her sister and her words became jumbled and she does not remember this happening. At that visit, her Vimpat was increased to 100 mg BID. Since then, there have not been any further events that she is aware of. She has stopped taking her Vimpat as of May. She felt that she was having weight loss with it. She also started Mojaro in May 2022 which has lead to rapid weight loss and when she stopped taking her insulin she also felt like she lost a lot of weight. She has been on Depakote, dilantin and keppra in the past with [facility]. Vimpat has been the best tolerate for her. Discussed that she should be on some sort of AED due to her history with seizures. LABS and STUDIES: Lab Results Component Value Date WBC 5.83 07/13/2018 HGB 13.6 07/13/2018 HCT 41.9 07/13/2018 MCV 84.1 07/13/2018 PLT 242 07/13/2018 Chemistry Component Value Date/Time NA 139 07/13/2018 0418 NA 140 01/15/2014 0404 K 3.9 07/13/2018 0418 K 3.6 01/15/2014 0404 CL 107 07/13/2018 0418 CL 107 01/15/2014 0404 BUN 16 07/13/2018 0418 BUN 16 02/24/2017 0252 BUN 16 01/15/2014 0404 CREATININE 0.72 07/13/2018 0418 CREATININE 0.73 02/24/2017 0252 CREATININE 0.73 01/15/2014 0404 Component Value Date/Time CALCIUM 8.8 07/13/2018 0418 CALCIUM 8.3 (L) 01/14/2014 1326 ALKPHOS 80 07/11/2018 1933 AST 14 07/11/2018 1933 AST 16 02/24/2017 0252 ALT 19 07/11/2018 1933 ALT 50 02/24/2017 0252 BILITOT 0.3 07/11/2018 1933 Lab Results Component Value Date HGBA1C 6.1 (H) 02/18/2016 Lab Results Component Value Date CHOL 207 (H) 02/19/2016 CHOL 179 07/14/2015 CHOL 222 (H) 01/15/2014 Lab Results Component Value Date HDL 30 (L) 02/19/2016 HDL 32 (L) 07/14/2015 HDL 31 (L) 01/15/2014 Lab Results Component Value Date LDLCALC 120 02/19/2016 LDLCALC 115 07/14/2015 LDLCALC 119 01/15/2014 Lab Results Component Value Date TRIG 284 (H) 02/19/2016 TRIG 162 (H) 07/14/2015 TRIG 362 (H) 01/15/2014 Lab Results Component Value Date CHOLHDL 6.9 02/19/2016 CHOLHDL 5.6 07/14/2015 CHOLHDL 7 01/15/2014 Results for orders placed or performed during the hospital encounter of 07/11/18 CT Head Or Brain Without Contrast Narrative EXAMINATION: CT OF THE HEAD WITHOUT CONTRAST 07/11/2018 TECHNIQUE: CT of the head was performed without the administration of intravenous contrast. Dose modulation, iterative reconstruction, and/or weight based adjustment of the mA/kV was utilized to reduce the radiation dose to as low as reasonably achievable. COMPARISON: MRI brain from 02/18/2016. HISTORY: ORDERING SYSTEM PROVIDED HISTORY: lower extremity weakness; TECHNOLOGIST PROVIDED HISTORY: Reason for Exam: lower extremity weakness Illness/Other Acuity: Acute Type of Encounter: Initial Additional signs and symptoms: lower extremity weakness ORDERING SYSTEM PROVIDED DIAGNOSIS CODES: R29.898 Weakness of lower extremity, unspecified laterality FINDINGS: BRAIN/VENTRICLES: There is no acute hemorrhage, herniation, or hydrocephalus. There is no acute territorial infarct. Only the genu of the corpus callosum is formed. The other segments have not formed. ORBITS: The visualized portion of the orbits demonstrate no acute abnormality. SINUSES: The visualized paranasal sinuses and mastoid air cells demonstrate no acute abnormality. SOFT TISSUES/SKULL: No acute abnormality of the visualized skull or soft tissues. Impression No acute intracranial abnormality. Partial agenesis of the corpus callosum. /[facility] Workstation ID: [id number] Results for orders placed or performed during the hospital encounter of 02/18/16 MR Brain Without Contrast Narrative EXAMINATION: MRI OF THE BRAIN WITHOUT CONTRAST 02/18/2016: TECHNIQUE: Multiplanar multisequence MRI of the brain was performed without the administration of intravenous contrast. COMPARISON: 07/14/2015. HISTORY: ORDERING SYSTEM PROVIDED HISTORY: headache, RUE weakness; TECHNOLOGIST PROVIDED HISTORY: Reason for Exam: pt has right sided weakness and headaches. no injury. Illness/Other Acuity: Acute Encounter Type: Initial Additional signs and symptoms: none Acute left retro-orbital headache with right arm weakness. Initial evaluation. FINDINGS: INTRACRANIAL STRUCTURES/VENTRICLES: There is no acute infarct. 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 There is a parallel orientation of the lateral ventricles. No abnormal signal is seen within the brain. No evidence of hydrocephalus. No mass effect or midline shift. Normal signal voids are seen within the major intracranial vessels. ORBITS: The visualized portion of the orbits demonstrate no acute abnormality. SINUSES: The visualized paranasal sinuses and mastoid air cells are well aerated. BONES/SOFT TISSUES: The bone marrow signal intensity appears normal. The craniocervical junction is normal in appearance. Impression 1. No acute intracranial abnormality. No acute infarct. 2. 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 Workstation ID: [id number] Results for orders placed or performed during the hospital encounter of 07/13/15 MRA Brain Without Contrast Narrative EXAMINATION: MRA OF THE HEAD WITHOUT CONTRAST; MRA OF THE NECK WITH AND WITHOUT CONTRAST 07/14/2015: TECHNIQUE: MRA of the head was performed utilizing [id number] imaging with MIP images. No intravenous contrast was administered. COMPARISON: None. HISTORY: R sided arm weakness, chronic, initial exam FINDINGS: MRA head: ANTERIOR CIRCULATION: The internal carotid arteries are normal in course and caliber without focal stenosis. The anterior cerebral and middle cerebral arteries demonstrate no focal stenosis. POSTERIOR CIRCULATION: There is origin of the right posterior cerebral artery with hypoplastic P1 segment. The left posterior communicating artery is hypoplastic. The posterior cerebral arteries demonstrate no focal stenosis. There is right dominance of the vertebral arteries with hypoplastic left intracranial vertebral artery. The right vertebral and basilar arteries appear unremarkable. ANEURYSM: No intracranial aneurysm is seen. MRA neck: AORTIC ARCH/GREAT VESSELS: There is a normal branch pattern of the aortic arch. No significant stenosis is seen of the innominate artery or subclavian arteries. CAROTID ARTERIES: The common carotid arteries are normal in appearance without evidence of a flow limiting stenosis. The internal carotid arteries are normal in appearance without evidence of a flow limiting stenosis by NASCET criteria. VERTEBRAL ARTERIES: The right vertebral artery arises from the right subclavian artery. The left vertebral artery shares the common origin with the left vertebral artery. The vertebral arteries both arise from the subclavian arteries and are normal in caliber without evidence of flow limiting stenosis. Impression No acute abnormality of the CTA of the head and neck. Workstation ID: [id number] I personally reviewed --- (prior notes, hospital records, laboratory results, and diagnostic studies). The following portions of the patient's history were reviewed and updated as appropriate: allergies, past family history, past medical history, past social history, past surgical history and problem list. Current Medications I personally reviewed and reconciled the medications. Current Outpatient Medications Medication Sig Dispense Refill aspirin 81 mg chewable tablet Chew and Swallow 1 (one) tablet (81 mg total) daily . baclofen 5 mg Tab Take 1 (one) tablet (5 mg total) by mouth nightly . blood pressure monitor Kit Take BP daily and record . 1 each 0 clopidogreL (PLAVIX) 75 mg tablet TAKE 1 TABLET EVERY DAY 90 tablet 3 co-enzyme Q-10 30 mg capsule Take 100 mg by mouth 2 (two) times a day . ezetimibe (ZETIA) 10 mg tablet Take 1 (one) tablet (10 mg total) by mouth daily . FreeStyle Janee 2 Sensor Kit USE TO CHECK BLOOD SUGARS gabapentin (NEURONTIN) 300 MG capsule Take 2 (two) capsules (600 mg total) by mouth 3 (three) times a day . HumaLOG KwikPen Insulin 100 unit/mL InPn INJECT 20 UNITS THREE TIMES DAILY UNDER THE SKIN WITH MEALS PLUS SLIDING SCALE. MAX 80 UNITS/DAY insulin aspart U-100 100 unit/mL (3 mL) InPn Insulin Aspart U-100 (Novolog Flexpen U-100 Insulin) 100 unit/mL (3 mL) Insulin Pen Active 0 sliding scale dose SC DAILY November 22, 2021 11:00pm JARDIANCE 25 mg Tab Take 1 (one) tablet (25 mg total) by mouth every morning . 0 lacosamide (VIMPAT) 50 mg Tab Take 1 (one) tablet (50 mg total) by mouth 2 (two) times a day (Days supply per fill: 30) . 60 tablet 5 Lantus Solostar U-100 Insulin 100 unit/mL (3 mL) InPn meloxicam (MOBIC) 15 MG tablet Take 1 (one) tablet (15 mg total) by mouth daily . Mounjaro 10 mg/0.5 mL Pen INJECT 10 MG (0.5 ML) SUBCUTANEOUSLY EVERY WEEK ondansetron (ZOFRAN-ODT) 4 MG disintegrating tablet Dissolve 1 (one) tablet (4 mg total) on top of tongue every 4 (four) hours as needed for nausea . oxyCODONE-acetaminophen (PERCOCET) 5-325 mg per tablet Take 1 (one) tablet by mouth every 6 (six) hours as needed for pain . pravastatin (PRAVACHOL) 20 MG tablet Take 1 (one) tablet (20 mg total) by mouth nightly . REPaglinide (PRANDIN) 2 MG tablet Take 1 (one) tablet (2 mg total) by mouth Daily With Food . rimegepant (Nurtec ODT) 75 mg ODT Dissolve 1 (one) tablet (75 mg total) on top of tongue as needed (at onset of migraine) . 8 tablet 5 thyroid (ARMOUR) 30 mg tablet Take 1 (one) tablet (30 mg total) by mouth every morning . UNABLE TO FIND Relamorelin 10 units 2 x's a day . valACYclovir (VALTREX) 500 MG tablet Take 1 (one) tablet (500 mg total) by mouth . Vascepa 1 gram cap Take 2 (two) capsules (2 g total) by mouth 2 (two) times a day . No current facility-administered medications for this visit. ALLERGIES Allergies Allergen Reactions Nortriptyline Other reaction(s): Other: See Comments sugar drops and heart issues Other reaction(s): Other (See Comments) sugar drops and heart issues Other reaction(s): Other, Other: See Comments sugar drops and heart issues sugar drops and heart issues Metformin Diarrhea XR and plain XR and plain XR and plain Sulfa (Sulfonamide Antibiotics) Hives Other reaction(s): Hives Ct: Iodinated Contrast- Oral And Iv Dye GI Intolerance Other reaction(s): GI Upset Other reaction(s): GI Upset Morphine Other reaction(s): Other: See Comments Muscle contractions all over Other reaction(s): Itching, Other: See Comments Muscle contractions all over Iodine Other reaction(s): GI Upset Other reaction(s): Rash Past Medical History: Diagnosis Date AVM (arteriovenous malformation) brain Diabetes mellitus (HCC) Disease of thyroid gland Fibromyalgia Headache Seizures (HCC) Stroke (HCC) tia and cva Past Surgical History: Procedure Laterality Date SECTION CHOLECYSTECTOMY fallopian tube removal HYSTERECTOMY left post tibial tendon repair right post tibial tendon repair WISDOM TOOTH EXTRACTION Social History Socioeconomic History Marital status: Single Tobacco Use Smoking status: Never Smokeless tobacco: Never Substance and Sexual Activity Alcohol use: Yes Drug use: No ROS: All systems reviewed and negative except pertinent positives and negatives documented in the History of Present Illness (HPI). PHYSICAL EXAMINATION: General: General Appearance: In NAD Mental status: Alertness, Attention Span & Concentration: Normal Language: Normal Speech: Normal Orientation: Normal This note was partially written using voice recognition software and is subject to errors including those of syntax and sound-alike substitutions which may evade proofreading. In such instances, original meaning may be extrapolated by contextual derivation. Nakita Mccabe CNP 11/30/2023 11:17 AM documented in this encounter [facility] 11-30-2023 Note NEUROLOGY Outpatient virtual visit FOLLOW-UP [facility] [phone] (office) / [phone] (fax) [facility] [address] [place] [phone] Virtual Visit [facility] 11/30/23 Nakita Mccabe CNP Provider Location: Patient Location Plastic Mixer: None Patient Location: home Patient: Delmy Buchanan Date of : 1980 (43 y.o. female) PCP: Charis Espinal MD Neurologist: Angeles Ford MD I instructed patient to contact me promptly with additional concerns. Virtual Visit Consent Statement: I discussed risks, benefits and alternatives of telemedicine consultation with the patient (and any accompanying persons) including the risks that the patient's personal health details and medical records will be discussed over interactive video/audio/telecommunication technology, may be recorded, and that there are inherent diagnostic limitations compared to [id number] evaluations. They elected to proceed with the telemedicine consultation. ASSESSMENT/PLAN: Ms. Buchanan is a 43 y.o. female who is doing a telemedicine consultation over video for a follow up. Seizure- Last possible seizure was 01/2023, prior to that was 6 years ago. Patient as been off Vimpat since May due to weight loss. PLAN: Will start Vimpat 50 mg BID Patient is also on Gabapentin 800 mg TID which could be used as an AED as well Calcium/vitamin D supplementation is also recommended, as antiepileptic medications can lead to osteoporosis. We discussed seizure lowering risk factors including ETOH use, illicit drug use, lack of sleep, stress, illness, and medication noncompliance. ETOH and illicit drug cessation strongly advised. The patient is advised to avoid dangerous behaviors including, but not limited to, swimming alone, bathing alone, cooking with an open flame, operating firearms, carrying or holding small children, working from heights, and driving. The patient is legally obliged to self-report to the [facility] in the setting of ongoing episodes of altered consciousness, for at least 3 months from date of last spell of altered awareness. The patient indicates full understanding of these restrictions and obligations and voiced his/her intent to comply with this legal responsibility. Follow up with Dr. Ford in 3 months Chief complaint: Seizures Interval History: Patient last seen by me in January. It was thought that she had a seizure. She was sending a voice alexey to her sister and her words became jumbled and she does not remember this happening. At that visit, her Vimpat was increased to 100 mg BID. Since then, there have not been any further events that she is aware of. She has stopped taking her Vimpat as of May. She felt that she was having weight loss with it. She also started Mojaro in May 2022 which has lead to rapid weight loss and when she stopped taking her insulin she also felt like she lost a lot of weight. She has been on Depakote, dilantin and keppra in the past with [facility]. Vimpat has been the best tolerate for her. Discussed that she should be on some sort of AED due to her history with seizures. LABS and STUDIES: Lab Results Component Value Date WBC 5.83 07/13/2018 HGB 13.6 07/13/2018 HCT 41.9 07/13/2018 MCV 84.1 07/13/2018 PLT 242 07/13/2018 Chemistry Component Value Date/Time NA 139 07/13/2018 0418 NA 140 01/15/2014 0404 K 3.9 07/13/2018 0418 K 3.6 01/15/2014 0404 CL 107 07/13/2018 0418 CL 107 01/15/2014 0404 BUN 16 07/13/2018 0418 BUN 16 02/24/2017 0252 BUN 16 01/15/2014 0404 CREATININE 0.72 07/13/2018 0418 CREATININE 0.73 02/24/2017 0252 CREATININE 0.73 01/15/2014 0404 Component Value Date/Time CALCIUM 8.8 07/13/2018 0418 CALCIUM 8.3 (L) 01/14/2014 1326 ALKPHOS 80 07/11/2018 193 AST 14 07/11/2018 193 AST 16 02/24/2017 0252 ALT 19 07/11/2018 193 ALT 50 02/24/2017 0252 BILITOT 0.3 07/11/20181932 Lab Results Component Value Date HGBA1C 6.1 (H) 02/18/2016 Lab Results Component Value Date CHOL 207 (H) 02/19/2016 CHOL 179 07/14/2015 CHOL 222 (H) 01/15/2014 Lab Results Component Value Date HDL 30 (L) 02/19/2016 HDL 32 (L) 07/14/2015 HDL 31 (L) 01/15/2014 Lab Results Component Value Date LDLCALC 120 02/19/2016 LDLCALC 115 07/14/2015 LDLCALC 119 01/15/2014 Lab Results Component Value Date TRIG 284 (H) 02/19/2016 TRIG 162 (H) 07/14/2015 TRIG 362 (H) 01/15/2014 Lab Results Component Value Date CHOLHDL 6.9 02/19/2016 CHOLHDL 5.6 07/14/2015 CHOLHDL 7 01/15/2014 Results for orders placed or performed during the hospital encounter of 07/11/18 CT Head Or Brain Without Contrast Narrative EXAMINATION: CT OF THE HEAD WITHOUT CONTRAST 07/11/2018 TECHNIQUE: CT of the head w (more content not included)... [facility] 10-14-2023 Note HNO ID: [id number] Author: PANFILO VIRAMONTES PA Service: ? Author Type: Physician Senior Front End Engineer Type: Progress Notes Filed: 10/14/2023 14:25 Note Text: 43-year-old female presents for head injury and rib injury. Patient states that last night she tripped and fell to the ground. She states that she hit her head on the wall. She did not lose consciousness. She states that she is felt dizzy and foggy since the fall. She is on any blood thinners. States that she has a headache and she has to close her eyes because she feels dizzy when her eyes are open. She states she is unsure if she hit her ribs but is also having right-sided chest wall pain. Due to head injury with dizziness, I did recommend evaluation in the emergency room. Patient agreeable to this plan. She declines EMS, will have her friend drive her there now. [facility] will go [facility]. [facility] 10-14-2023 History of Present illness Narrative 43-year-old female presents for head injury and rib injury. Patient states that last night she tripped and fell to the ground. She states that she hit her head on the wall. She did not lose consciousness. She states that she is felt dizzy and foggy since the fall. She is on any blood thinners. States that she has a headache and she has to close her eyes because she feels dizzy when her eyes are open. She states she is unsure if she hit her ribs but is also having right-sided chest wall pain. Due to head injury with dizziness, I did recommend evaluation in the emergency room. Patient agreeable to this plan. She declines EMS, will have her friend drive her there now. She will go to [place] [facility]. documented in this encounter [facility] 07-15-2023 Note HNO ID: [id number] Author: CAROLYN GAMINO MD Service: ? Author Type: Physician Type: Progress Notes Filed: 07/15/2023 15:17 Note Text: Patient presents with: Fever: Urinary issues, headache, burning, frequency, flank pain x 1 day HPI: Symptoms since last night. Dysuria: Yes Frequency: Yes Fever or chills: Yes, high fever and feeling weak. Back pain: bilateral flank Abdominal pain: only when urinating Prior UTI: Yes Personal history of kidney stones: Yes Denies sore throat, nasal congestion, cough. PAST MEDICAL HISTORY Diagnosis Date Acute gastritis without mention of hemorrhage 01/09/2010 AVM OF BRAIN 03/15/2006 Left frontal, small, developmental Calculus of kidney 05/27/2005 Chronic abdominal pain syndrome 04/27/2013 Conversion disorder 02/16/2007 Conversion disorder (or hysterical neurosis, conversion type) 06/11/2011 DDD (degenerative disc disease), lumbar 03/07/2012 DEPRESSIVE DISORDER NEC 09/29/2007 Depressive disorder, not elsewhere classified 09/29/2007 DIABETES MELLITUS TYPE II-UNCOMPL 12/01/2007 Epilepsy complicating , childbirth, or the puerperium, unspecified as to episode of care or not applicable(649.40) Fatty liver 01/03/2009 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 omeprazole (PRILOSEC) 40 mg capsule Take 1 capsule by mouth once daily. JARDIANCE 25 mg tablet Take 1 tablet by mouth once daily. ezetimibe (ZETIA) 10 mg tablet Take 10 mg by mouth once daily. icosapent ethyl 1 gram Take 2 capsules by mouth twice daily. pravastatin (PRAVACHOL) 20 mg tablet Take 20 mg by mouth daily at bedtime. CO Q-10 200 mg cap Take 1 capsule by mouth once daily. meloxicam (MOBIC) 15 mg tablet Take 15 mg by mouth once daily. clopidogrel (PLAVIX) 75 mg tablet clopidogrel Clopidogrel Bisulfate Active 75 MG DAILY December 10, 2019 10:38pm 12-10-2019 [facility] ([id number]) pentoxifylline ER (TRENTAL) 400 mg CR tablet Take 1 tablet by mouth three times daily with meals. cholecalciferol, Vitamin D3, (VITAMIN D3) 50,000 unit cap capsule Take 1 capsule by mouth once each week. insulin glargine (LANTUS SOLOSTAR) 100 unit/mL (3 mL) inpn Inject 10 Units subcutaneously once daily. gabapentin (NEURONTIN) 100 mg capsule Take 800 mg by mouth three times daily. 300MG TAB 5 TIMES PER DAY ondansetron (ZOFRAN, HYDROCHLORIDE,) 4 mg tablet Take 1 tablet by mouth every 12 hours as needed for Nausea/Vomiting (for nausea.). Topiramate (TOPAMAX) 50 mg tablet Take 50 mg by mouth once daily. thyroid (ARMOUR THYROID) 30 mg tablet Take 30 mg by mouth once daily. Blood Sugar Diagnostic, Drum (ACCU-CHEK COMPACT TEST) strp Test before and after every meal and at HS daily as directed, diabetes uncontrolled, multiple doses insulin per day, 250.02 Insulin [place], Disposable, (PEN NEEDLE) 29 x 1/2 Ndle use four times daily with each dose of insulin ac and hs lancets(ACCU-CHEK SOFTCLIX LANCETS) Test Blood sugars once daily No current facility-administered medications for this visit. ALLERGIES: ALLERGIES Allergen Reactions Contrast Dye GI Upset Metformin Diarrhea XR and plain Morphine Other: See Comments Muscle contractions all over Nortriptyline Other: See Comments sugar drops and heart issues Sulfa (Sulfonamide * Hives VITALS: BP 90/63 Pulse (!) 127 Temp (!) 39.4 ?C (103 ?F) Resp 22 Wt 75.8 kg (167 lb 1.7 oz) LMP 09/07/2015 SpO2 99% BMI 26.97 kg/m? Last 4 Encounter BP Readings: Date: BP: 07/15/2023 90/63 05/27/2023 122/72 01/13/2023 124/85 05/23/2020 102/84 PHYSICAL EXAM: GEN: ill appearing HEENT: EOMI, conjunctiva clear, HEART: fast rate, regular rhythm, LUNGS: clear to auscultation, no wheezes or crackles, no increased WOB ABDOMEN: Soft, nondistended, no masses, no suprapubic tenderness BACK: bilateral CVA tenderness ASSESSMENT/PLAN: 1. Burning with urination - ICD9: 788.1, ICD10: R30.0 (primary diagnosis) 2. Hypotension, unspecified hypotension type - ICD9: 458.9, ICD10: I95.9 3. Fever, unspecified fever cause - ICD9: 780.60, ICD10: R50.9 - UA DIP, URINE (POC) -positive for multiple - unreliable due to Azo discoloration Flank pain, tachycardia, hypotension, and high fever. Concern for UTI with sepsis. No other influenza symptoms present. Patient's boyfriend will take her to the emergency room. Report called to [facility] ER. Carolyn Gamino MD [facility] 07-15-2023 History of Present illness Narrative Patient presents with: Fever: Urinary issues, headache, burning, frequency, flank pain x 1 day HPI: Symptoms since last night. Dysuria: Yes Frequency: Yes Fever or chills: Yes, high fever and feeling weak. Back pain: bilateral flank Abdominal pain: only when urinating Prior UTI: Yes Personal history of kidney stones: Yes Denies sore throat, nasal congestion, cough. PAST MEDICAL HISTORY Diagnosis Date Acute gastritis without mention of hemorrhage 01/09/2010 AVM OF BRAIN 03/15/2006 Left frontal, small, developmental Calculus of kidney 05/27/2005 Chronic abdominal pain syndrome 04/27/2013 Conversion disorder 02/16/2007 Conversion disorder (or hysterical neurosis, conversion type) 06/11/2011 DDD (degenerative disc disease), lumbar 03/07/2012 DEPRESSIVE DISORDER NEC 09/29/2007 Depressive disorder, not elsewhere classified 09/29/2007 DIABETES MELLITUS TYPE II-UNCOMPL 12/01/2007 Epilepsy complicating , childbirth, or the puerperium, unspecified as to episode of care or not applicable(649.40) Fatty liver 01/03/2009 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 omeprazole (PRILOSEC) 40 mg capsule Take 1 capsule by mouth once daily. JARDIANCE 25 mg tablet Take 1 tablet by mouth once daily. ezetimibe (ZETIA) 10 mg tablet Take 10 mg by mouth once daily. icosapent ethyl 1 gram Take 2 capsules by mouth twice daily. pravastatin (PRAVACHOL) 20 mg tablet Take 20 mg by mouth daily at bedtime. CO Q-10 200 mg cap Take 1 capsule by mouth once daily. meloxicam (MOBIC) 15 mg tablet Take 15 mg by mouth once daily. clopidogrel (PLAVIX) 75 mg tablet clopidogrel Clopidogrel Bisulfate Active 75 MG DAILY December 10, 2019 10:38pm 12-10-2019 [facility] ([id number]) pentoxifylline ER (TRENTAL) 400 mg CR tablet Take 1 tablet by mouth three times daily with meals. cholecalciferol, Vitamin D3, (VITAMIN D3) 50,000 unit cap capsule Take 1 capsule by mouth once each week. insulin glargine (LANTUS SOLOSTAR) 100 unit/mL (3 mL) inpn Inject 10 Units subcutaneously once daily. gabapentin (NEURONTIN) 100 mg capsule Take 800 mg by mouth three times daily. 300MG TAB 5 TIMES PER DAY ondansetron (ZOFRAN, HYDROCHLORIDE,) 4 mg tablet Take 1 tablet by mouth every 12 hours as needed for Nausea/Vomiting (for nausea.). Topiramate (TOPAMAX) 50 mg tablet Take 50 mg by mouth once daily. thyroid (ARMOUR THYROID) 30 mg tablet Take 30 mg by mouth once daily. Blood Sugar Diagnostic, Drum (ACCU-CHEK COMPACT TEST) strp Test before and after every meal and at HS daily as directed, diabetes uncontrolled, multiple doses insulin per day, 250.02 Insulin [place], Disposable, (PEN NEEDLE) 29 x 1/2 Ndle use four times daily with each dose of insulin ac and hs lancets(ACCU-CHEK SOFTCLIX LANCETS) Test Blood sugars once daily No current facility-administered medications for this visit. ALLERGIES: ALLERGIES Allergen Reactions Contrast Dye GI Upset Metformin Diarrhea XR and plain Morphine Other: See Comments Muscle contractions all over Nortriptyline Other: See Comments sugar drops and heart issues Sulfa (Sulfonamide * Hives VITALS: BP 90/63 Pulse (!) 127 Temp (!) 39.4 C (103 F) Resp 22 Wt 75.8 kg (167 lb 1.7 oz) LMP 09/07/2015 SpO2 99% BMI 26.97 kg/m Last 4 Encounter BP Readings: Date: BP: 07/15/2023 90/63 05/27/2023 122/72 01/13/2023 124/85 05/23/2020 102/84 PHYSICAL EXAM: GEN: ill appearing HEENT: EOMI, conjunctiva clear, HEART: fast rate, regular rhythm, LUNGS: clear to auscultation, no wheezes or crackles, no increased WOB ABDOMEN: Soft, nondistended, no masses, no suprapubic tenderness BACK: bilateral CVA tenderness ASSESSMENT/PLAN: 1. Burning with urination - ICD9: 788.1, ICD10: R30.0 (primary diagnosis) 2. Hypotension, unspecified hypotension type - ICD9: 458.9, ICD10: I95.9 3. Fever, unspecified fever cause - ICD9: 780.60, ICD10: R50.9 - UA DIP, URINE (POC) -positive for multiple - unreliable due to Azo discoloration Flank pain, tachycardia, hypotension, and high fever. Concern for UTI with sepsis. No other influenza symptoms present. Patient's boyfriend will take her to the emergency room. Report called to [facility] ER. Carolyn Gamino MD documented in this encounter [facility] 05-27-2023 Note HNO ID: [id number] Author: ELBA BONILLA APRN.ACCOUNTING COORDINATOR Service: ? Author Type: Nurse Practitioner Type: Progress Notes Filed: 05/27/2023 19:01 Note Text: Subjective HPI HPI Delmy Buchanan is a 42 year old female who presents today for CC of cough, congestion, chest heaviness, passing out. This started 4 days ago. Has tried otc medication for relief. Symptoms are worsened by nothing. Was at ER. Did not want to wait to be seen. .Patient presents with: Cough: Sinus pressure and drainage x4 days PAST MEDICAL HISTORY Diagnosis Date Acute gastritis without mention of hemorrhage 01/09/2010 AVM OF BRAIN 03/15/2006 Left frontal, small, developmental Calculus of kidney 05/27/2005 Chronic abdominal pain syndrome 04/27/2013 Conversion disorder 02/16/2007 Conversion disorder (or hysterical neurosis, conversion type) 06/11/2011 DDD (degenerative disc disease), lumbar 03/07/2012 DEPRESSIVE DISORDER NEC 09/29/2007 Depressive disorder, not elsewhere classified 09/29/2007 DIABETES MELLITUS TYPE II-UNCOMPL 12/01/2007 Epilepsy complicating , childbirth, or the puerperium, unspecified as to episode of care or not applicable(649.40) Fatty liver 01/03/2009 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 03/15/2006 Headache(784.0) 02/16/2007 Hypothyroidism 01/19/2020 IRRITABLE COLON 06/26/2006 Migraine without aura MYELOPATHY NEC 03/24/2007 ALFONSO (obstructive sleep apnea) 08/12/2011 Polycystic ovaries 01/27/2008 RLS (restless legs syndrome) 08/12/2011 PAST SURGICAL HISTORY Procedure Laterality Date ABD EMBOLIZATION W/ANGIO 12/01/2012 Left Ovarian Vein embolization DELIVERY ONLY 2006 , low cervical CHOLECYSTECTOMY 2002 Cholecystectomy EGD TRANSORAL BIOPSY SINGLE/MULTIPLE 04/24/13 Gastritis ESOPHAGOGASTRODUODENOSCOPY TRANSORAL DIAGNOSTIC 01/09/2010 EGD ESOPHAGOGASTRODUODENOSCOPY TRANSORAL DIAGNOSTIC 01/28/2018 EGD ESOPHAGOGASTRODUODENOSCOPY TRANSORAL DIAGNOSTIC 01/22/2020 EGD PAST SURGICAL HISTORY OF 1999 fx right fibula PAST SURGICAL HISTORY OF 08/2003 stent in right kidney PAST SURGICAL HISTORY OF 01/2008 right hallux- scar tissue extensor tendon PAST SURGICAL HISTORY OF 08/26/[address] [facility] Dr. Lyle PAST SURGICAL HISTORY OF Left 12/2014 post tibial tendon repair PAST SURGICAL HISTORY OF Right 05/2015 Repair Post tibial tendon PAST SURGICAL HISTORY OF Right 12/2016 Repair Rt perineal tendon S PK [facility] [id number] 09/2015 [facility] ALLERGIES Contrast Dye, Metformin, Morphine, Nortriptyline, and Sulfa (Sulfonamide Antibiotics) MEDICATIONS tirzepatide (MOUNJARO) 12.5 mg/0.5 mL pen injector Inject 12.5 mg subcutaneously one time a week. omeprazole (PRILOSEC) 40 mg capsule Take 1 capsule by mouth once daily. JARDIANCE 25 mg tablet Take 1 tablet by mouth once daily. ezetimibe (ZETIA) 10 mg tablet Take 10 mg by mouth once daily. icosapent ethyl 1 gram Take 2 capsules by mouth twice daily. pravastatin (PRAVACHOL) 20 mg tablet Take 20 mg by mouth daily at bedtime. CO Q-10 200 mg cap Take 1 capsule by mouth once daily. meloxicam (MOBIC) 15 mg tablet Take 15 mg by mouth once daily. clopidogrel (PLAVIX) 75 mg tablet clopidogrel Clopidogrel Bisulfate Active 75 MG DAILY December 10, 2019 10:38pm 12-10-2019 [facility] ([id number]) pentoxifylline ER (TRENTAL) 400 mg CR tablet Take 1 tablet by mouth three times daily with meals. cholecalciferol, Vitamin D3, (VITAMIN D3) 50,000 unit cap capsule Take 1 capsule by mouth once each week. insulin glargine (LANTUS SOLOSTAR) 100 unit/mL (3 mL) inpn Inject 10 Units subcutaneously once daily. gabapentin (NEURONTIN) 100 mg capsule Take 800 mg by mouth three times daily. 300MG TAB 5 TIMES PER DAY ondansetron (ZOFRAN, HYDROCHLORIDE,) 4 mg tablet Take 1 tablet by mouth every 12 hours as needed for Nausea/Vomiting (for nausea.). Topiramate (TOPAMAX) 50 mg tablet Take 50 mg by mouth once daily. thyroid (ARMOUR THYROID) 30 mg tablet Take 30 mg by mouth once daily. Blood Sugar Diagnostic, Drum (ACCU-CHEK COMPACT TEST) strp Test before and after every meal and at HS daily as directed, diabetes uncontrolled, multiple doses insulin per day, 250.02 Insulin [place], Disposable, (PEN NEEDLE) 29 x 1/2 Ndle use four times daily with each dose of insulin ac and hs lancets(ACCU-CHEK SOFTCLIX LANCETS) Test Blood sugars once daily FAMILY HISTORY Problem Relation Age of Onset Arthritis Mother Heart Father angina Hypertension Father Diabetes Maternal Grandmother TYPE II Colon Cancer Maternal Aunt Social History Tobacco Use Smoking status: Former Years: 2 Types: Cigarettes Quit date: 09/16/1998 Years since quittin.7 Smokeless tobacco: Never Tobacco comments: Smoked in high school x 2 years, 3-4 cigarettes a day Vaping Use Vaping Use: current everyday user [employer] (more content not included)... [facility] 01-15-2023 History of Present illness Narrative Radiology Service Progress Note PATIENT NAME: Delmy Buchanan DATE OF SERVICE: January 15, 2023 TIME: 10:25 AM PATIENT IDENTITY VERIFICATION COMPLETED USING TWO (2) IDENTIFIERS: Name and Date of confirmed by patient verbally. FALL SCREENING: Has the patient had 2 falls in the last year or 1 fall with injury or currently using an Ambulatory Assistive Device (Walker, Cane, Wheelchair, Crutches, etc.)? No PATIENT GENDER DATA: Female. status: : No status: NO. PATIENT RELEVANT IMPLANT DATA REVIEWED: Yes RADIOLOGY DEPARTMENT: General X-ray: Exam(s) Completed: GI/ Procedure(s): Esophogram with barium contrast PERIPHERAL IV DATA: Not applicable SIGNED BY: RT Cesar(Adán) January 15, 2023 10:25 AM documented in this encounter [facility] 01-15-2023 Note HNO ID: [id number] Author: Lucia Cohen RT(R) Service: Radiology Author Type: Technologist Type: Progress Notes Filed: 01/15/2023 10:26 AM Note Text: Radiology Service Progress Note PATIENT NAME: Delmy Buchanan DATE OF SERVICE: January 15, 2023 TIME: 10:25 AM PATIENT IDENTITY VERIFICATION COMPLETED USING TWO (2) IDENTIFIERS: Name and Date of confirmed by patient verbally. FALL SCREENING: Has the patient had 2 falls in the last year or 1 fall with injury or currently using an Ambulatory Assistive Device (Walker, Cane, Wheelchair, Crutches, etc.)? No PATIENT GENDER DATA: Female. status: : No status: NO. PATIENT RELEVANT IMPLANT DATA REVIEWED: Yes RADIOLOGY DEPARTMENT: General X-ray: Exam(s) Completed: GI/ Procedure(s): Esophogram with barium contrast PERIPHERAL IV DATA: Not applicable SIGNED BY: RT Cesar(Adán) January 15, 2023 10:25 AM [facility] 01-13-2023 Note HNO ID: [id number] Author: Charis Oakley MD Service: ? Author Type: Physician Type: Progress Notes Filed: 01/13/2023 2:44 PM Note Text: Follow up REASON FOR VISIT Delmy Buchanan is a 42 year old female who is scheduled for dysphagia at the consult request of Self. My final recommendations will be communicated back to the requesting physician by the way of the shared medical record, fax, or via US Mail. PRESENTING COMPLAINT AND HISTORY -- Anything dry, crunchy, breaded gets stuck in my upper chest --Will drink liquid to get the bolus to pass --Had EGD last year - unremarkable --Per her report, had esophageal manometry in [place] that was normal omeprazole (PRILOSEC) 40 mg capsule Take 1 capsule by mouth once daily. (Patient not taking: Reported on 05/23/2020 ) JARDIANCE 25 mg tablet Take 1 tablet by mouth once daily. ezetimibe (ZETIA) 10 mg tablet Take 10 mg by mouth once daily. icosapent ethyl 1 gram Take 2 capsules by mouth twice daily. pravastatin (PRAVACHOL) 20 mg tablet Take 20 mg by mouth daily at bedtime. CO Q-10 200 mg cap Take 1 capsule by mouth once daily. meloxicam (MOBIC) 15 mg tablet Take 15 mg by mouth once daily. clopidogrel (PLAVIX) 75 mg tablet clopidogrel Clopidogrel Bisulfate Active 75 MG DAILY December 10, 2019 10:38pm 12-10-2019 [facility] ([id number]) pentoxifylline ER (TRENTAL) 400 mg CR tablet Take 1 tablet by mouth three times daily with meals. cholecalciferol, Vitamin D3, (VITAMIN D3) 50,000 unit cap capsule Take 1 capsule by mouth once each week. insulin glargine (LANTUS SOLOSTAR) 100 unit/mL (3 mL) inpn Inject 10 Units subcutaneously once daily. gabapentin (NEURONTIN) 100 mg capsule Take 300 mg by mouth three times daily. 300MG TAB 5 TIMES PER DAY ondansetron (ZOFRAN, HYDROCHLORIDE,) 4 mg tablet Take 1 tablet by mouth every 12 hours as needed for Nausea/Vomiting (for nausea.). Topiramate (TOPAMAX) 50 mg tablet Take 50 mg by mouth once daily. thyroid (ARMOUR THYROID) 30 mg tablet Take 30 mg by mouth once daily. Blood Sugar Diagnostic, Drum (ACCU-CHEK COMPACT TEST) strp Test before and after every meal and at HS daily as directed, diabetes uncontrolled, multiple doses insulin per day, 250.02 Insulin [place], Disposable, (PEN NEEDLE) 29 x 1/2 Ndle use four times daily with each dose of insulin ac and hs lancets(ACCU-CHEK SOFTCLIX LANCETS) Test Blood sugars once daily Contrast Dye, Metformin, Morphine, Nortriptyline, and Sulfa (Sulfonamide Antibiotics) FAMILY HISTORY Colon Cancer: No Other Cancers: No FAMILY HISTORY Problem Relation Age of Onset Arthritis Mother Heart Father angina Hypertension Father Diabetes Maternal Grandmother TYPE II Colon Cancer Maternal Aunt PAST MEDICAL HISTORY Diagnosis Date Acute gastritis without mention of hemorrhage 01/09/2010 AVM OF BRAIN 03/15/2006 Left frontal, small, developmental Calculus of kidney 05/27/2005 Chronic abdominal pain syndrome 04/27/2013 Conversion disorder 02/16/2007 Conversion disorder (or hysterical neurosis, conversion type) 06/11/2011 DDD (degenerative disc disease), lumbar 03/07/2012 DEPRESSIVE DISORDER NEC 09/29/2007 Depressive disorder, not elsewhere classified 09/29/2007 DIABETES MELLITUS TYPE II-UNCOMPL 12/01/2007 Epilepsy complicating , childbirth, or the puerperium, unspecified as to episode of care or not applicable(649.40) Fatty liver 01/03/2009 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 03/15/2006 Headache(784.0) 02/16/2007 Hypothyroidism 01/19/2020 IRRITABLE COLON 06/26/2006 Migraine without aura MYELOPATHY NEC 03/24/2007 ALFONSO (obstructive sleep apnea) 08/12/2011 Polycystic ovaries 01/27/2008 RLS (restless legs syndrome) 08/12/2011 PAST SURGICAL HISTORY Procedure Laterality Date ABD EMBOLIZATION W/ANGIO 12/01/2012 Left Ovarian Vein embolization DELIVERY ONLY 2006 , low cervical EGD W/O BRSH SPECIMEN W/BX 04/24/13 Gastritis EGD W/O OR W/BRUSH/WASH 01/09/2010 EGD EGD W/O OR W/BRUSH/WASH 01/28/2018 EGD EGD W/O OR W/BRUSH/WASH 01/22/2020 EGD PAST SURGICAL HISTORY OF 1999 fx right fibula PAST SURGICAL HISTORY OF 08/2003 stent in right kidney PAST SURGICAL HISTORY OF 01/2008 right hallux- scar tissue extensor tendon PAST SURGICAL HISTORY OF 08/26/[address] [facility] Dr. Lyle PAST SURGICAL HISTORY OF Left 12/2014 post tibial tendon repair PAST SURGICAL HISTORY OF Right 05/2015 Repair Post tibial tendon PAST SURGICAL HISTORY OF Right 12/2016 Repair Rt perineal tendon REMOVAL GALLBLADDER [address] [facility] [id number] 09/2015 [facility]bs Social History Tobacco Use Smoking status: Former Years: 2 Types: Cigarettes Quit date: 09/16/1998 Years since quittin.3 Smokeless tobacco: Never Tobacco comments: Smoked in high school x 2 years, 3-4 ciga (more content not included)... [facility] 11-16-2022 Miscellaneous Notes Reason for call: Ms. Buchanan would like to schedule an appointment with Dr. Ho. Home and cell number [phone] Diagnosis Oral epithelial dysplasia (OED) Mary Potts documented in this encounter [facility] 03-24-2022 History of Present illness Narrative EPA Retrieved and initiated through [employer] customer insight for [facility]. Awaiting response. documented in this encounter [facility] 01-21-2021 Miscellaneous Notes . Patient requested refill [facility] - [facility] [address] [facility] [address] [facility] [address] Last office visit: 08/16/2020 Next office visit: Visit date not found Requested Prescriptions Pending Prescriptions Disp Refills clopidogreL (PLAVIX) 75 mg tablet [Pharmacy Med Name: CLOPIDOGREL 75 MG Tablet] 90 tablet 3 Sig: TAKE 1 TABLET EVERY DAY Last refilled:08/09/2020 OARRS/NARxCHECK Report Received and Assessed: No data found Date controlled substance agreement signed: No data found Date of last drug screen: No data found Functional Assessment: No data found documented in this encounter [facility] 09-06-2014 History of Past i llness Narrative Problem Noted Date Diagnosed Date Resolved Date Dysmenorrhea 09/06/2014 06/05/2016 Abnormal uterine bleeding 09/06/2014 Sciatica 09/22/2010 02/14/2011 Acute gastritis without mention of hemorrhage 01/10/20 10 02/23/2012 Tendonitis 10/09/2009 02/14/2011 Onychia and paronychia of toe 07/04/2009 02/14/2011 Cellulitis and abscess of toe, unspecified 06/20/2009 02/14/2011 Other benign neoplasm of con nective and other soft tissue of unspecified site 02/07/2008 02/15/20 11 Other specified congenital a nomaly of muscle, tendon, fascia, and connective tissue 12/27/2007 Nonspecific abnormal results of liver function study 12/01/2007 02/14/2011 Pain in limb 11/08/2007 02/14/2011 Depressive disorder, not elsewhere classified 09/29/19 08 02/14/2011 Urinary tract infection, site not specified 04/04/2007 02/14/2011 Backache, unspecified 03/29/20072010 Other myelopathy 03/24/2007 02/23/2012 Conversion disorder 02/16/2007 02/15/20 11 Blood in stool 09/22/2006 02/14/2011 OVERWEIGHT 06/26/2006 02/14/2011 AVM OF BRAIN 03/15/2006 02/23/2012 Acute, but ill-defined, cere brovascular disease 03/02/2006 02/14/2011 Abdominal pain, other specified site 05/27/2005 02/14/2011 Calculus of kidney 05/27/2005 1 Nonspecific elevation of lev els of transaminase or lactic acid dehydrogenase (LDH) 02/14/2011 documented as of this encounter (statuses as of 11/17/2022) [facility]04-30-2015 History of Past illness Narrative* Problem Noted Date Diagnosed Date Resolved Date Dysmenorrhea 09/06/2014 06/05/2016 Abnormal uterine bleeding 09/06/2014 Sciatica 09/22/2010 02/14/2011 Acute gastritis without mention of hemorrhage 01/10/2002/23/2012 Tendonitis 10/09/2009 02/14/2011 Onychia and paronychia of toe 07/04/2009 02/14/2011 Cellulitis and abscess of toe, unspecified 06/20/2009 02/14/2011 Other benign neoplasm of con nective and other soft tissue of unspecified site 02/07/2008 02/15/20 11 Other specified congenital a nomaly of muscle, tendon, fascia, and connective tissue 12/27/2007 Nonspecific abnormal results of liver function study 12/01/2007 02/14/2011 Pain in limb 11/08/2007 02/14/2011 Depressive disorder, not elsewhere classified 09/29/19 08 02/14/2011 Urinary tract infection, site not specified 04/04/2007 02/14/2011 Backache, unspecified 03/29/20072010 Other myelopathy 03/24/2007 02/23/2012 Conversion disorder 02/16/2007 02/15/20 11 Blood in stool 09/22/2006 02/14/2011 OVERWEIGHT 06/26/2006 02/14/2011 AVM OF BRAIN 03/15/2006 02/23/2012 Acute, but ill-defined, cere brovascular disease 03/02/2006 02/14/2011 Abdominal pain, other specified site 05/27/2005 02/14/2011 Calculus of kidney 05/27/2005 1 Nonspecific elevation of lev els of transaminase or lactic acid dehydrogenase (LDH) 02/14/2011 documented as of this encounter (statuses as of 01/16/2023) [facility] History of Past illness Narrative* Problem Noted Date Diagnosed Date Resolved Date Dysmenorrhea 09/06/2014 06/05/2016 Abnormal uterine bleeding 09/06/2014 Sciatica 09/22/2010 02/14/2011 Acute gastritis without mention of hemorrhage 01/10/20 10 02/23/2012 Tendonitis 10/09/2009 02/14/2011 Onychia and paronychia of toe 07/04/2009 02/14/2011 Cellulitis and abscess of toe, unspecified 06/20/2009 02/14/2011 Other benign neoplasm of con nective and other soft tissue of unspecified site 02/07/2008 02/15/20 11 Other specified congenital a nomaly of muscle, tendon, fascia, and connective tissue 12/27/2007 Nonspecific abnormal results of liver function study 12/01/2007 02/14/2011 Pain in limb 11/08/2007 02/14/2011 Depressive disorder, not elsewhere classified 09/29/19 08 02/14/2011 Urinary tract infection, site not specified 04/04/2007 02/14/2011 Backache, unspecified 03/29/20072010 Other myelopathy 03/24/2007 02/23/2012 Conversion disorder 02/16/2007 02/15/20 11 Blood in stool 09/22/2006 02/14/2011 OVERWEIGHT 06/26/2006 02/14/2011 AVM OF BRAIN 03/15/2006 02/23/2012 Acute, but ill-defined, cere brovascular disease 03/02/2006 02/14/2011 Abdominal pain, other specified site 05/27/2005 02/14/2011 Calculus of kidney 05/27/2005 1 Nonspecific elevation of lev els of transaminase or lactic acid dehydrogenase (LDH) 02/14/2011 documented as of this encounter (statuses as of 07/15/2023) [facility] note* Diagnosis Acute ischemic stroke (HCC) Unspecified cerebral artery occlusion with cerebral infarction documented in this encounter [facility] note* Diagnosis Esophageal dysphagia Dysphagia, pharyngoesophageal phase documented in this encounter [facility] note* Diagnosis Burning with urination- Primary Dysuria Hypotension, unspecified hypotension type Fever, unspecified fever cause documented in this encounter [facility] note* Diagnosis Injury of head, initial encounter- Primary documented in this encounter [facility] note* Diagnosis Seizures (HCC)- Primary Other convulsions documented in this encounter [facility] note* Diagnosis Burning with urination- Primary Dysuria documented in this encounter [facility] for referral (narrative)* Diagnostic Procedure Only (Routine) - Closed Specialty Diagnoses / Procedures Referred By Contac t Referred To Contact XR IMAGING Diagnoses Esophageal dysphagia Procedures XR ESOPHAGRAM RADIOLOGIC EXAM ESOPHAGUS SINGLE CONTRAST STUDY Charis Oakley MD [address] [id number] Xr Imaging [id number] Referral ID Status Reason Start Date Expiration Date V isits Requested Visits Authorized [id number] Closed Auto-Generate d Referral 01/13/2023 02/12/2024 1 1 [facility] Assessments Diagnosis Intractable hemiplegic migra ine without status migrainosus Seizures (HCC) Other convulsions Diagnosis Right arm weakness Other musculoskeletal symptoms referable to limbs Diagnosis Weakness of lower extremity, unspecified laterality- Primary Decreased sensation of lower extremity Conversion disorder Diagnosis High anion gap metabolic acidosis Acidosis Acute ischemic stroke (HCC) Unspecified cerebral artery occlusion with cerebral infarction Seizure (HCC) Other convulsions DM2 (diabetes mellitus, type 2) (HCC) Type II or unspecified type diabetes mellitus without mention of complication, not stated as uncontrolled TIA (transient ischemic attack) Unspecified transient cerebral ischemia Obesity Obesity, unspecified Diagnosis Bilateral leg weakness Muscle weakness (generalized) 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 Left arm pain Pain in soft tissues of limb Seizures (HCC) Other convulsions Essential hypertension Unspecified essential hypertension Acute ischemic stroke (HCC) Unspecified cerebral artery occlusion with cerebral infarction Diagnosis Acute ischemic stroke (HCC) Unspecified cerebral artery occlusion with cerebral infarction 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 Seizures (HCC) Other convulsions Diagnosis Acute midline low back pain with bilateral sciatica Diagnosis 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- Primary Acute ischemic stroke (HCC) Unspecified cerebral artery occlusion with cerebral infarction Essential hypertension Unspecified essential hypertension Hyperlipidemia, unspecified hyperlipidemia type Seizures (HCC) Other convulsions Diagnosis Acute nonintractable headache Diagnosis 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 Seizures (HCC) Other convulsions Diagnosis Left arm pain Pain in soft tissues of limb Summary Purpose Family History No Family History Records FoundNo Family History Records FoundNo Family History Records FoundNo Family History Records FoundNo Family History Records FoundNo Family History Records FoundNo Family History Records FoundNo Family History Records FoundNo Family History Records FoundNo Family History Records FoundNo Family History Records FoundNo Family History Records FoundNo Family History Records FoundNo Family History Records FoundNo Family History Records FoundNo Family History Records FoundNo Family History Records Found Advance Directives No Advanced Directives Records FoundLatest Code Status on File Code Status Date Activated Date Inactivated Comments Full Code 07/11/2018 10:10 PM Full Code 03/31/2016 7:16 PM 04/04/2016 7:49 PM Full Code - Unverified 03/31/2016 6:27 PM 03/31/2016 7 :16 PM Full Code - Unverified 02/18/2016 4:52 PM 02/19/2016 6 :15 PM Full Code - Unverified 07/14/2015 4:14 AM 07/15/2015 7:32 PM Latest Code Status on File Code Status Date Activated Date Inactivated Comments Full Code 07/20/2019 2:33 AM Full Code 07/20/2019 2:33 AM 07/20/2019 2:33 AM Documents on File Type Date Recorded Patient Loading Unit Operator Expl anation Advance Directives and Livin g Will 07/11/2018 8:21 PM Latest Code Status on File Code Status Date Activated Date Inactivated Comments Full Code 07/11/2018 10:10 PM Full Code 03/31/2016 7:16 PM 04/04/2016 7:49 PM Full Code - Unverified 03/31/2016 6:27 PM 03/31/2016 7 :16 PM Full Code - Unverified 02/18/2016 4:52 PM 02/19/2016 6 :15 PM Full Code - Unverified 07/14/2015 4:14 AM 07/15/2015 7:32 PM Latest Code Status on File Code Status Date Activated Date Inactivated Comments Full Code 07/20/2019 2:33 AM 07/22/2019 4:22 PM Latest Code Status on File Code Status Date Activated Date Inactivated Comments Full Code 05/08/2020 2:27 AM Full Code 07/20/2019 2:33 AM 07/22/2019 4:22 PM Documents on File Type Date Recorded Patient Loading Unit Operator Expl anation Advance Directives and Livin g Will 07/11/2018 8:21 PM Latest Code Status on File Date Activated Date Inactivated Comments 07/11/2018 10:10 PM Full Code Date Activated Date Inactivated Comments 03/31/2016 7:16 PM 04/04/2016 7:49 PM Full Code - Unverified Date Activated Date Inactivated Comments 03/31/2016 6:27 PM 03/31/2016 7:16 PM Full Code - Unverified Date Activated Date Inactivated Comments 02/18/2016 4:52 PM 02/19/2016 6:15 PM Full Code - Unverified Date Activated Date Inactivated Comments 07/14/2015 4:14 AM 07/15/2015 7:32 PM Date Activated Date Inactivated Comments 07/11/2018 10:10 PM Date Activated Date Inactivated Comments 03/31/2016 7:16 PM 04/04/2016 7:49 PM Date Activated Date Inactivated Comments 03/31/2016 6:27 PM 03/31/2016 7:16 PM Date Activated Date Inactivated Comments 02/18/2016 4:52 PM 02/19/2016 6:15 PM Date Activated Date Inactivated Comments 07/14/2015 4:14 AM 07/15/2015 7:32 PM Reason for Referral Status Reason Specialty Diagnoses / Procedures Referred By Contact Referred To Contact Pending Review Home Health Services Diagnoses Weakness of lower extremity, unspecified laterality Decreased sensation of lower extremity Shanita Jaffe MD [address] [place] [phone] Status Reason Specialty Diagnoses / Procedures Referred By Contact Referred To Contact Pending Review Eladia Peña, ACCOUNTING COORDINATOR [address] [place] [address] Status Reason Specialty Diagnoses / Procedures Referred By Contact Referred To Contact Authorized Neurology Diagnoses Left arm pain Procedures EMG: Eladia Peña, ACCOUNTING COORDINATOR [address] [place] [address] Hospital Course Note Hospitalist Discharge Summar y Delmy Limkwdrew : 1980 Admit date: 05/08/2020 Discharge date: 05/09/2020 Admitting Physician: Pj Bosch MD Primary Care Physician: JHONNY FELIX Visit Status: Observation Code Status: Full Code Discharge Diagnoses: Active Problems: Acute nonintractable headache Seizure disorder Fibromyalgia Resolved Problems: * No resolved hospital problems. * Procedures: none Hospital Course: The patient is a 39 y.o. female with significant past medical history below who presents with an episode of unresponsiveness at home - she has a hx of blackout seizures and follows with a neurologist in [place] - she has been maintained on topamax and neurontin for her fibromyalgia. She had an MRI at outside hospital that was negative except for some sinus thickening. She was transferred here for neuro eval. She is having some tingling in her R hand this AM and headache and slight pain behind her L eye. She has hx of AVM L side of brain per her (more content not included)... Discharge Instructions * Discharge Instr - Care Coordination* Melinda Bee RN - 07/14/2018 2:[address] [facility] Address: [facility] [place] [address] in this encounter* Instructions* Nicole Waldron RN - 07/20/2019 Refer to the Understanding Stroke Booklet given to you, written material provided to patient/family, addressing all signs & symptoms of a stroke, which are: sudden numbness or weakness, especially on one side of the body sudden confusion sudden difficulty speaking or understanding sudden loss of vision sudden dizziness or loss of balance or coordination sudden severe headache Explained the need to call EMS (911) immediately if signs & symptoms occur. Discussed medications that the patient is taking, will review medications again prior to discharge, risk factors, and the need for follow-up with a physician/INFRASTRUCTURE ENGINEER/PA after discharge. Discussed the patient s personal risk factors for Stroke /TIA with patient/family, and ways to reduce the risk for a recurrent stroke. Patient's personal risk factors which were identified are: [x] High blood pressure [x] High cholesterol [] Atrial fibrillation [x] Diabetes [] Smoking [x] Overweight [x] Lack of Exercise [] Sleep apnea [] Prior heart disease or heart attack [] Excessive alcohol use [] Use of illicit drugs [] Personal history of previous TIA or stroke [] Family history of stroke or heart disease [] Carotid stenosis [] Heart failure [] Patent Foramen Ovale [x] Migraine [] Hormone replacement therapy [] Current (up to six weeks post ) [] Depression [] Sickle Cell [] Renal insufficiency - chronic [] None Refer to Understanding Stroke Booklet. Advised patient that risk for stroke/TIA can be reduced by modifying/controlling risk factors. Patient advised to take medications as prescribed, which will be detailed in the discharge instructions, and to not stop taking them without consulting a physician. In addition, pt. advised to maintain a healthy diet, exercise regularly and to not smoke. documented in this encounter* Instructions* Nick Newton MD - 12/11/2019 General Orthopaedic Surgery Discharge Instructions -Weight bearing as tolerated bilateral lower extremities. -Ice back -Oral steroid dos-eneida as ordered -Pain medication as prescribed per emergency department -Monitor for signs of urinary/bowel dysfunction -Follow-up with Dr. Taylor in 3-5 days. The number has been provided. Please call the office with any questions or concerns. documented in this encounter* Discharge Instr - Diet* Shelly Guo RN - 05/09/2020 2:09 PM EST ? Good nutrition is important when healing from an illness, injury, or surgery. Follow any nutrition recommendations given to you during your hospital stay. ? If you were given an oral nutrition supplement while in the hospital, continue to take this supplement at home. You can take it with meals, in-between meals, and/or before bedtime. These supplements can be purchased at most local grocery stores, pharmacies, and chain [employer]stores. ? If you have any questions about your diet or nutrition, call the hospital and ask for the dietitian. documented in this encounter History of Present Illness * Mary Renteria - 07/15/2018 10:56 AM EST Nutrition Care Initial Assessment Reason for visit: Dietitian Screen Nutrition Diagnosis: No pertinent nutrition dx at this time. Nutrition Intervention: Continue Meal and Snacks Nutrition Prescription: Diet:Diabetic 75 g CHO/meal Oral nutrition supplement: n/a Tube Feeding: none Nutrition Goals: PO intake > 75% most meals Start Date:07/15/2018 Expected End Date:07/21/2018 Nutrition Education: No needs at this time Assessment: Pertinent clinical information: 37 yo female with hx of seizure disorder, AVM in the brain, DM, migraines, thyroid disorder, fibromyalgia, presented with bilateral extremity weakness PMH: AVM (arteriovenous malformation) brain Diabetes mellitus (HCC) Disease of thyroid gland Fibromyalgia Headache Seizures (HCC) Stroke (HCC) tia and cva Height: 5'6 Current weight:88.9 kg BMI: 31.63 Weight hx: Pt reported a 45 lb wt loss in past 6 months, wt hx indicates 11 lb weight loss in past 9 months Recent weight/ weights: 07/14/18 0235 88.9 kg (195 lb 15.8 oz) 07/12/18 01:33:49 88.5 kg (195 lb 1.7 oz) 07/11/181924 88.5 kg (195 lb) 04/18/18 93.4 kg (206 lb) 11/23/17 93.4 kg (206 lb) Current diet order: Diabetic 75 g CHO/meal Recent intake: Current intake Likely meets estimated needs. Patient/family comments: Pt stated she has a small appetite and prefers to graze throughout the dayin order to not set off her gastroparesis. She reported she has been trying to lose weight through nutrition and exercise and reports a 45 lb wt loss in the past 6 months. She monitors her DM at homewith insulin and regular BG checking, she is currently off of her medication d/t good A1C. Pt declined a glucose control supplement. Difficulty Chewing/Swallowing: No Skin Integrity: Intact GI Function: WNL Physical Appearance: WNL Labs: Bicarbonate 19 Scheduled Meds: Neurontin capsule 300 mg every 8 hrs Lantus injection 10 units nightly Humalog injection 0-15 units at bedtime Humalog injection 0-30 units TID before meals Amour tablet 30 mg every morning Topamax tablet 100 mg nightly Topamax tablet 50 mg daily Estimated Energy Needs Total Energy Estimated Needs: 0620-3324 kcal Method for Estimating Needs: 25-30 kcal/kg IBW Total Protein Estimated Needs: 59-71 g Method for Estimating Needs: 1-1.2 g/kg IBW Fluid Needs Total Fluid Estimated Needs: 0339-9988 mL Method for Estimating Needs: 1 mL/kcal Associated attestation - Nuvia Queen RD - 07/15/2018 1:[address] has reviewed and agrees with audit practice intern's nutrition assessment and care plan. * Melinda Bee, RAVEN - 07/15/2018 10:51 AM EST 07/15/18 1050 Anticipated Discharge Plan Anticipated HME 3 Commode Anticipated Home Care Needs Home health care Anticipated Facility Type Home care Potential for Readmission Potential for Readmission No Discharge Readiness Expected Discharge Date 07/15/18 Barriers to Discharge No barriers [facility] Disposition D/C Disposition Home Health Related to Current Admission? Yes Agency/Destination Other ([facility]) Home Care Needs Home health care HME 07/08 Commode (drop arm) HME Agency [facility] HME Same As Recommended yes Transportation Type Auto Options Reviewed List provided;Possible expense;Explained services/benefits Reason for Choice Patient/Family prefernce Discharge order in place. Met with pt at bedside, explained out of service area for [facility], was able to arrange HH PT/OT through [facility]. Pt in agreement/voiced understanding. Agreeable to drop arm BSC, order placed, Valeria/DME liaison notified. See this CM note from 07/14 for updated address in [place]. No other discharge needs identified at this time. AVS faxed to agency. Addendum: clarified with OT, pt does not need commode. Notified [facility]/DME liaison, order discontinued. * Jhonny Bae, ELECTRICAL MANUFACTURING ENGINEER - 07/15/2018 10:30 AM EST Physical Therapy PHYSICAL THERAPY TREATMENT NOTE Skilled Therapy Needs After Discharge Anticipate Resolution of Current Assessment Limitations Including: Pain, Mechanical Barriers Are Skilled Therapy Services Needed After Discharge: Yes Intensity of Skilled Therapy: 2-3 days per week Anticipated Duration of Skilled Therapy: Duration 7 - 10 days DME Recommendation: (Patient owns DME) Rehab Potential: Good Outcomes Measures Prior Function - Basic Mobility Raw Score: 24 Points Prior Function - Basic Mobility % Impaired: 0% functionally impaired AM-PAC - Basic Mobility Raw Score: 21 Points AM-PAC - Basic Mobility % Impaired: 29.52% functionally impaired Activity Tolerance Therapy Precautions Orthotic Devices: No Weight Bearing Status: WFL General Rehab Precautions: Fall risk(LE weakness) Balance Sitting Balance - Static: Sits without support for more than 30 seconds Sitting Balance - Dynamic: Moves / returns trunkal midpoint more than 2 inches in all planes Standing Balance - Static: Supports self independantly with both upper extremities(supervision withw/w) Standing Balance - Dynamic: Moves / returns trunkal midpoint 1-2 inches in multiple planes(supervision with w/w) Balance Training (Treatment only): Standing with perturbations all planes, Standing reaching activities, Standing weight shifting all planes Skilled Intervention: Performed cross-body reaching with standing marches to improve dynamic balance and prepare for gait. Perturbation in standing to improve static balance. Bed Mobility Supine to Sit: Independent(flat bed, no rail) Sit to Supine: Independent(flat bed, no rail) Skilled Intervention: Pt self-assisting BLE to EOB during supine to sit Transfers Sit to Stand: Modified independence Hand Booked Folder And Stitcher: Wheeled walker Gait/Locomotion Gait Assistance: Supervision Assistive Device: Wheeled walker Distance: 180 Feet(2 standing rest breaks) Pattern: Over reliance on upper extremities, R decreased step length, L decreased step length, R impaired heel strike, L impaired heel strike(slow janeth and velocity) Skilled Intervention: Cues for decreased shoulder elevation and relaxed order filler on AD to conserve energy and decrease reliance on UEs. Pt demo improved w/w management without cues. Cues for rest breaks PRN for energy conservation. Exercise Standing Exercises: standing with BUE or single UE support; mini squats, 1x5; marches with cross-body reaching; standby assist Skilled Intervention: Standing exercises to strengthen for improved balance. 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 Patient has since fully recovered to be completely independent. 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 This note stands as the current Discharge Summary upon patient discharge from the hospital or completion of Physical Therapy Plan of Care. * Jhonny Bae PTA - 07/14/2018 4:20 PM EST Physical Therapy PHYSICAL THERAPY TREATMENT NOTE Based on current status, anticipate update to the discharge recommendations, please see supervisingtherapist's note to follow. Skilled Therapy Needs After Discharge DME Recommendation: (Patient owns DME) Rehab Potential: Good Outcomes Measures Prior Function - Basic Mobility Raw Score: 24 Points Prior Function - Basic Mobility % Impaired: 0% functionally impaired AM-PAC - Basic Mobility Raw Score: 21 Points AM-PAC - Basic Mobility % Impaired: 29.52% functionally impaired Activity Tolerance Therapy Precautions Orthotic Devices: No Weight Bearing Status: WFL General Rehab Precautions: Fall risk(LE weakness) Balance Sitting Balance - Static: Supports self independantly with both upper extremities Sitting Balance - Dynamic: Moves / returns trunkal midpoint more than 2 inches in all planes Standing Balance - Static: Supports self independantly with both upper extremities(standby assist with w/w) Standing Balance - Dynamic: Moves / returns trunkal midpoint 1-2 inches in multiple planes(standby assist with w/w) Balance Training (Treatment only): Standing with perturbations all planes, Standing reaching activities, Standing weight shifting all planes Skilled Intervention: Gentle perturbation in standing to improve posture and static balance. Lateral weight and reaching in/out of PRANAY with single UE support to improve dynamic balance. Pt demo appropriate strategies to retain balance. Bed Mobility Rolling: Independent Supine to Sit: Modified independence(HOB elevated) Sit to Supine: Modified [place](HOB elevated) Skilled Intervention: Pt self-assisting BLEs to EOB during supine to sit. Transfers Sit to Stand: Modified independence Hand Booked Folder And Stitcher: Wheeled walker Skilled Intervention: Pt demo appropriate technique on sit to/from stand with w/w. Educated pt on pausing for safety after changes in position. Gait/Locomotion Gait Assistance: Stand by assistance Assistive Device: Wheeled walker Distance: 160 Feet(multiple standing rest breaks) Pattern: Over reliance on upper extremities, Forward flexed, R decreased step length, L decreased step length, R impaired heel strike, L impaired heel strike(slow velocity, uneven janeth) Skilled Intervention: Cues for decreased shoulder elevation and relaxed order filler on AD to conserve energy and decrease reliance on UEs. Cues to keep AD at appropriate distance from body durign gait. Pt monitored for response to treatment, with cues for rest breaks PRN. 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 Patient has since fully recovered to be completely independent. 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 This note stands as the current Discharge Summary upon patient discharge from the hospital or completion of Physical Therapy Plan of Care. Associated attestation - Nereyda Kuhn PT - 07/14/2018 6:29 PM EST This note is an addendum to the Rotor Coil Taper note with the same day of service. I have reviewed the documented flowsheet information and plan of care with the following addition(s): Are Skilled Therapy Services Needed After Discharge: Yes Intensity of Skilled Therapy: 2-3 days per week Anticipated Duration of Skilled Therapy: Duration 7 - 10 days D/C recs updated after discussion with ELECTRICAL MANUFACTURING ENGINEER on pt progression. * Renzo Darby GOLD - 07/14/2018 2:40 PM EST Occupational Therapy OCCUPATIONAL THERAPY TREATMENT NOTE Skilled Therapy Needs After Discharge Anticipate Resolution of Current Assessment Limitations Including: Pain, Mechanical Barriers Are Skilled Therapy Services Needed After Discharge: Yes Intensity of Skilled Therapy: 2-3 days per week Anticipated Duration of Skilled Therapy: Duration 7 - 10 days DME Recommendation: Bedside commode DME Rationale: Drop-arm commode - necessary to aid in transfer to [facility], Commode - patient confined to single room(UNable to stand due to LE weakness) Rehab Potential: Good, For goals Outcomes Measures Prior Function Daily Activity: Raw Score: 24 Prior Function Daily Activity % Impaired: 0% functionally impaired AM-PAC Daily Activity: Raw Score: 21 AM-PAC Daily Activity % Impaired: 32.79% functionally impaired Activity Tolerance Pt tolerates 15-20 minutes activity during treatment session. Therapy Precautions Orthotic Devices: No Weight Bearing Status: WFL General Rehab Precautions: Fall risk(LE weakness) Cognition Overall Cognitive Status: Within Functional Limits Arousal/Alertness: Appropriate responses to stimuli Orientation Level: Oriented X4 Executive functioning: WFL Safety Judgment: Good awareness of safety precautions Problem Solving: Able to problem solve independently Attention: Attends to quiet environment Hearing Status: WFL Social Interaction: Appropriate, Cooperative Comments: Pt follows 100% multistep commands without difficulty Skilled Intervention: Therapist discusses concerns upon return home. Pt without concerns at this time. Therpapist encourages pt to think about concerns & express to therapist during next session. ADL/IADL LE Dressing: Stand by assistance Skilled Intervention: Pt declines need for toileting however dons/doffs mesh underwear & socks while seated at EOB. Bed Mobility Supine to Sit: Supervision Sit to Supine: Supervision Skilled Intervention: Pt utilizes good safety & technique for bed mobilty with HOB elevated. Functional Transfers Sit to Stand: Supervision Toilet Transfers: Supervision, Grab bars Skilled Intervention: Therapist monitors pt for safety & technique with pt completing toilet transfer from standard commode & sit to stand from EOB without difficulty. 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 Patient has since fully recovered to be completely independent. 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 This note stands as the current Discharge Summary upon patient discharge from the hospital or completion of Occupational Therapy Plan of Care. * Stacey Shah MD - 07/14/2018 2:09 PM EST [facility] [place] DAILY PROGRESS NOTE Assessment and Plan Delmy Buchanan is a 37 y.o. female patient of Charis Espinal MD with history of seizure disorder, AVM in the brain, DM, migraines, thyroid disorder, fibromyalgia, presented with bilateral lower extremity weakness. 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 Sudden onset, so somewhat odd presentation for GBS Decreased reflexes in B/L LE, decreased pain response in B/L LE CT head WNL. MR T/L spine with no acute, +mild-moderate DDD OT recommending 5-7 days - Per PM&R would qualify but needs to think about if going (07/13). Per PM&R, suspect that sx are legitimate (07/13). Continuous pulse ox although sx seem to be improving (07/13). Neuro consulted - possible GBS vs conversion disorder - S/p LP on 07/13. Normal CSF, GBS ruled out Per Neurology symptoms likely fibromyalgia mimic Okay to DC per Neurology DM2: Without hyperglycemia, initial BG of 123, last A1c of 6.1 (02/18/16) Controlled at home with PO meds and 10 units lantus HS Will continue insulin, hold PO medications, and add SSI. Blood sugar stable (07/12). Seizure disorder Last seizure reported approximately 4 years prior to admission Continue home topiramate 50 mg a.m., 100 mg at bedtime Hypothyroid No acute issues at this time TSH on admission normal at 1.35 Continue home [place] Thyroid 30 mg Quality Measures DVT Prophylaxis: SCDs Leal Catheter: none Disposition Discharge Location: OT recommending 5-7, PM&R say would qualify for IPR, but patient refusing Estimated Discharge Date: 07/15 Outpatient Testing: none Subjective Feels the same Review of Systems The following system(s) were reviewed: All other systems reviewed and negative, other than HPI. Objective BP 105/73 (BP Location: Left arm, Patient Position: Lying) Pulse 71 Temp 98 F (36.7 C) (Oral) Resp 16 Ht 5' 6 Wt 88.9 kg (195 lb 15.8 oz) LMP 07/07/2015 (Exact Date) SpO2 97% BMI 31.63 kg/m Physical Examination General Appearance: alert, cooperative, in no acute distress. HEENT: Head- normocephalic; Eyes- PERRLA, EOMI; Ears- external auditory canals clear, hearing intact; Nose- no nasal discharge; Throat- oropharynx normal Cardiovascular: regular rate and rhythm; normal S1, S2; no murmurs, rubs, clicks or gallops; no peripheral edema. Respiratory: lungs clear to auscultation; without wheezes, rales or rhonchi Abdomen: soft, non-tender, non-distended; positive bowel sounds Neurological: CN II - XII intact bilaterally. LE weak bilaterally. alert, oriented, normal speech; no focal findings or movement disorder noted Musculoskeletal: no significant deformity or tenderness to palpation Skin: normal coloration, texture and turgor; no lesions or eruptions Results/Medications Reviewed 07/14/18 2:09 PM Laboratory, Radiology, Cardiology, Medications and Transcriptions * Melinda Bee RN - 07/14/2018 1:54 PM EST 07/14/18 1354 Anticipated Discharge Plan Anticipated HME None Anticipated Home Care Needs Home health care Anticipated Facility Type Home care Discharge Readiness Expected Discharge Date 07/14/18 Barriers to Discharge Physician consult to clear Chart reviewed. PMR is recommending IPR, however pt declines, wants to go home with services, plan for [facility]/[place] office, orders in place. Discharge pending LP results and final neuro recs. Call from [place] liaison, states pt going to different address in [place], therefore is outsideof [facility] service area. Will need to find agency that services area. Address: [address] [place] [address]. Addendum: referral faxed to [facility]. Spoke with agency who will check insurance to see if they are able to accept. Provided this phone number for return phone call. Addendum: received phone call from Courtney @ [facility]. , [facility] able to accept pt at discharge,plan for start of care on Tuesday 07/18. Will fax AVS at time of discharge. * Yolanda Faith MD - 07/14/2018 10:19 AM EST NEUROLOGY PROGRESS NOTE Patient Name: Delmy Buchanan Admit Date: [id number] MR #: [id number] : 1980 Assessment and Plan: Nervous and Auditory Bilateral leg weakness Assessment & Plan Normal CSF, GBS ruled out and her symptoms are more likely fibromyalgia mimics. This is the second time she has has a similar attack and both times CSF normal, imaging normal, EMG normal and she recovers as quickly as it comes on. She may have a psych overlay but is on medications. She has diabetes and she has hypoactive DTRs all over. If IPR wants to consider her for a few days there in inpatient I think it will help. She lives alone. Would encourage her to be in an exercise program after IPR, closer to home. Eventual follow up withDr. Ford. Ok to discharge from neuro standpoint. SUBJECTIVE/OBJECTIVE: Overview: She was hospitalized at [facility] in [place] in 02/24 and states there she was given the dx of GBS. However looking at the discharge summary from there that is scanned into [facility], all of her workup was normal including LP and EMG. She was even seen by NSG for her minimal DJD of the spine. She got better quickly after the workup and was discharged home Today she feels she is not doing as well. She tells me that no other doctor has come today and she does not know what her discharge disposition is. Reviewed PT and OT notes. MRI of the Thoracic and Lumbar spine negative except for mild DJD. LP normal. Exam: WD/WN white female laying in bed in [facility]. NO signs of agnosia or aphasia or apraxia. Mental Status: Language function is fluent. No dysarthric speech is noted. Recent and remote memoryare preserved. Attention and concentration are adequate. Affect is euthymic. There is a normal fundof general information. Cranial nerves 2-12: Pupils are equal and reactive to light. No nystagmus is seen. Extra-ocular movements are intact. No facial weakness is seen. Auditory acuity is normal. The palate elevates normally. The tongue protrudes in the midline. Head turning and shoulder shrug are normal. Motor: There is 5 MRC strength in all muscle groups in the upper extremity and in the lower extremity 4/5 on the left and 4/5 on the right. Normal motor tone and muscle bulk are seen. There is no tremor or other abnormal movement. Gait The patient is able to sit up and swing her legs today and she is able to stand up on her own,walks with walker slowly and drags her right foot. Not tested today. PACU Vitals 07/14/18 1837 BP: 108/73 Pulse: 63 Resp: 16 Temp: 7.7 SpO2: 97 % on RA Hospital Medications: gabapentin 300 mg Oral Q8H KOBY insulin glargine 10 Units Subcutaneous Nightly lispro insulin 0-15 Units Subcutaneous at bedtime insulin lispro 0-30 Units Subcutaneous TID AC thyroid 30 mg Oral QAM topiramate 100 mg Oral Nightly topiramate 50 mg Oral Daily PRN medications inpatient acetaminophen, acetaminophen-codeine, cyclobenzaprine, nalOXone AND Notify physician AND naloxone, ondansetron, ondansetron, traMADol Past Medical History: Diagnosis Date AVM (arteriovenous malformation) brain Diabetes mellitus (HCC) Disease of thyroid gland Fibromyalgia Headache Seizures (HCC) Stroke (HCC) tia and cva Allergies Allergen Reactions Ct: Iodinated Contrast- Oral And Iv Dye GI Intolerance Other reaction(s): GI Upset Iodine Other reaction(s): GI Upset Metformin Diarrhea XR and plain XR and plain Morphine Other reaction(s): Other: See Comments Muscle contractions all over Nortriptyline Other reaction(s): Other: See Comments sugar drops and heart issues Other reaction(s): Other (See Comments) sugar drops and heart issues Sulfa (Sulfonamide Antibiotics) Hives Review of Systems: GEN, HEENT, CARDIAC, PULM, GI, , NEURO, PSYCH reviewed and pertinent facts noted above Laboratory and Additional Data Reviewed: Laboratory 07/14/18 7:26 PM Radiology 07/14/18 7:26 PM Medications 07/14/18 7:26 PM Transcriptions 07/14/18 7:26 PM Assessment Detail: The total time spent for this visit was 35 minutes. Greater than 50% of the time was spent in counseling and coordination of care regarding above problems. Yolanda Faith MD 07/14/2018 7:26 PM * Og Rossi PA-C - 07/13/2018 5:01 PM EST [facility] [place] [facility] DAILY PROGRESS NOTE Assessment and Plan Delmy Buchanan is a 37 y.o. female patient of Charis Espinal MD with history of seizure disorder, AVM in the brain, DM, migraines, thyroid disorder, fibromyalgia, presented with bilateral lower extremity weakness. 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 Sudden onset, so somewhat odd presentation for GBS Decreased reflexes in B/L LE, decreased pain response in B/L LE CT head WNL. MR T/L spine with no acute, +mild-moderate DDD OT recommending 5-7 days - Per PM&R would qualify but needs to think about if going (07/13). Per PM&R, suspect that sx are legitimate (07/13). Continuous pulse ox although sx seem to be improving (07/13). Neuro consulted - possible GBS vs conversion disorder - S/p LP on 07/13. Await LP results and further neuro recs, possible discharge on 07/14. DM2: Without hyperglycemia, initial BG of 123, last A1c of 6.1 (02/18/16) Controlled at home with PO meds and 10 units lantus HS Will continue insulin, hold PO medications, and add SSI. Blood sugar stable (07/12). Seizure disorder Last seizure reported approximately 4 years prior to admission Continue home topiramate 50 mg a.m., 100 mg at bedtime Hypothyroid No acute issues at this time TSH on admission normal at 1.35 Continue home [place] Thyroid 30 mg Admitted From: home Medication Reconciliation: Verified Quality Measures DVT Prophylaxis: SCDs Leal Catheter: none Disposition Discharge Location: OT recommending 5-7, PM&R say would qualify for IPR, but sounds like patient leaning toward [facility] Estimated Discharge Date: TBD, possibly 07/14, awaiting LP results and further neuro recs Outpatient Testing: TBD, may need EMG Subjective Pt indicates that she is doing well today. She denies fever, chills, CP, SOB, cough, N/V/D, abdominal pain, dysuria, rash, melena, hematochezia. Review of Systems The following system(s) were reviewed: All other systems reviewed and negative, other than HPI. Objective BP 115/80 (BP Location: Left arm, Patient Position: Lying) Pulse 68 Temp 98.2 F (36.8 C) (Oral) Resp 16 Ht 5' 6 Wt 88.5 kg (195 lb 1.7 oz) LMP 07/07/2015 (Exact Date) SpO2 95% BMI 31.49 kg/m Physical Examination General Appearance: alert, cooperative, in no acute distress. HEENT: Head- normocephalic; Eyes- PERRLA, EOMI; Ears- external auditory canals clear, hearing intact; Nose- no nasal discharge; Throat- oropharynx normal Cardiovascular: regular rate and rhythm; normal S1, S2; no murmurs, rubs, clicks or gallops; no peripheral edema. Respiratory: lungs clear to auscultation; without wheezes, rales or rhonchi Abdomen: soft, non-tender, non-distended; positive bowel sounds Neurological: CN II - XII intact bilaterally. LE weak bilaterally. alert, oriented, normal speech; no focal findings or movement disorder noted Musculoskeletal: no significant deformity or tenderness to palpation Skin: normal coloration, texture and turgor; no lesions or eruptions Results/Medications Reviewed 07/13/18 5:01 PM Laboratory, Radiology, Cardiology, Medications and Transcriptions * Reagan Rocha LSW - 07/13/2018 2:26 PM EST DISCHARGE PLAN PROGRESS NOTE Date: 07/13/2018 Time: 2:26 PM Patient Name: Delmy Buchanan Date of : 1980 Sex: Female Discharge Readiness Expected Discharge Date: 07/13/18 Barriers to Discharge: No barriers Reason For Consult: OT eval suggesting 5-7 days at discharge. Situation/Background: history of seizure disorder, AVM in the brain, DM, migraines, thyroid disorder, fibromyalgia, presented with bilateral lower extremity weakness. Action: PRASAD completed chart. PRASAD met with pt at bedside to discuss dispo. Pt verified home address; no HHC/DME prior to presentation. Pt reported she prefers to return home with HHC vs IPR. Noah liaison at [facility] following. PMR recs for IPR. PRASAD did d/w CM. Recommendation: Pt's preference HHC at this current time. * Yolanda Faith MD - 07/13/2018 1:48 PM EST NEUROLOGY PROGRESS NOTE Patient Name: Delmy Buchanan Admit Date: [id number] MR #: [id number] : 1980 Assessment and Plan: Nervous and Auditory Bilateral leg weakness Assessment & Plan Possible GBS and possible conversion disorder. She has diabetes and she has hypoactive DTRs all over. She gives some effort on left but not much on right and there is bilateral subjective numbness upto the groin area associated with subjective symptoms of not feeling herself urinate. Today she does better with being able to stand up and then using the walker slowly walked about 50 feet. MRI imaging of Thoracic and Lumbar region shows DJD and no cord lesions. LP to be done this afternoon.. Reviewed Dr. Ford's and Dr. Mahan's notes along with her outside medical records from [facility]. She has no family to get additional history. Eventual follow up with Dr. Ford. SUBJECTIVE/OBJECTIVE: She was hospitalized at [facility] in [place] in 02/24 and states there she was given the dx of GBS. However looking at the discharge summary from there that is scanned into [facility], all of her workup was normal including LP and EMG. She was even seen by NSG for her minimal DJD of the spine. She got better quickly after the workup and was discharged home Today she feels she is doing better, walked with walker and PT with multiple rests and got up with help to use the bathroom. No increase in area involved. MRI of the Thoracic and Lumbar spine negative except for mild DJD. LP pending. Exam: WD/WN white female laying in bed in [facility]. NO signs of agnosia or aphasia or apraxia. Mental Status: Language function is fluent. No dysarthric speech is noted. Recent and remote memoryare preserved. Attention and concentration are adequate. Affect is euthymic. There is a normal fundof general information. Cranial nerves 2-12: Pupils are equal and reactive to light. No nystagmus is seen. Extra-ocular movements are intact. No facial weakness is seen. Auditory acuity is normal. The palate elevates normally. The tongue protrudes in the midline. Head turning and shoulder shrug are normal. Motor: There is 5 MRC strength in all muscle groups in the upper extremity and in the lower extremity 4/5 on the left and 3/5 on the right. Normal motor tone and muscle bulk are seen. There is no tremor or other abnormal movement. Gait The patient is able to sit up and swing her legs today and she is able to stand up on her own,walks with walker slowly and drags her right foot. PACU Vitals 07/13/18 1115 BP: 121/84 Pulse: 64 Resp: 16 Temp: 98.2 F (36.8 C) SpO2: 97% Hospital Medications: gabapentin 300 mg Oral Q8H KOBY insulin glargine 10 Units Subcutaneous Nightly lispro insulin 0-15 Units Subcutaneous at bedtime insulin lispro 0-30 Units Subcutaneous TID AC thyroid 30 mg Oral QAM topiramate 100 mg Oral Nightly topiramate 50 mg Oral Daily PRN medications inpatient acetaminophen, acetaminophen-codeine, nalOXone AND Notify physician AND naloxone, ondansetron, ondansetron, traMADol Past Medical History: Diagnosis Date AVM (arteriovenous malformation) brain Diabetes mellitus (HCC) Disease of thyroid gland Fibromyalgia Headache Seizures (HCC) Stroke (HCC) tia and cva Allergies Allergen Reactions Ct: Iodinated Contrast- Oral And Iv Dye GI Intolerance Other reaction(s): GI Upset Iodine Other reaction(s): GI Upset Metformin Diarrhea XR and plain XR and plain Morphine Other reaction(s): Other: See Comments Muscle contractions all over Nortriptyline Other reaction(s): Other: See Comments sugar drops and heart issues Other reaction(s): Other (See Comments) sugar drops and heart issues Sulfa (Sulfonamide Antibiotics) Hives Review of Systems: GEN, HEENT, CARDIAC, PULM, GI, , NEURO, PSYCH reviewed and pertinent facts noted above Laboratory and Additional Data Reviewed: Laboratory 07/13/18 2:19 PM Radiology 07/13/18 2:19 PM Medications 07/13/18 2:19 PM Transcriptions 07/13/18 2:19 PM Assessment Detail: The total time spent for this visit was 35 minutes. Greater than 50% of the time was spent in counseling and coordination of care regarding above problems. Yolanda Faith MD 07/13/2018 2:19 PM * Codi Bowen RN - 07/13/2018 12:52 PM EST 07/13/18 1251 Discharge Plan Shared UM/CC and RN Source of Information Patient Discharge Readiness Expected Discharge Date 07/13/18 Barriers to Discharge No barriers [facility] Disposition D/C Disposition Home Health Related to Current Admission? Yes [facility] Needs Home health care HME None Transportation Type Auto Options Reviewed List provided;Possible expense;Explained services/benefits Reason for Choice Patient/Family prefernce Pt will est pcp appt Pt req home w/ hhc services. [facility] liaison alerted to referral. * Og Rossi PA-C - 07/12/2018 1:54 PM EST [facility] [place] [facility] DAILY PROGRESS NOTE Assessment and Plan Delmy Buchanan is a 37 y.o. female patient of Charis Espinal MD with history of seizure disorder, AVM in the brain, DM, migraines, thyroid disorder, fibromyalgia, presented with bilateral lower extremity weakness. 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 Sudden onset, so somewhat odd presentation for GBS Decreased reflexes in B/L LE, decreased pain response in B/L LE CT head WNL OT recommending 5-7 days at discharge, patient agreeable to IPR if needed, await PT recs Discussed with CM - recommending PM&R evaluation, will await PT recs Continuous pulse ox although no concern for diaphragm involvement (07/12). Neuro consulted - possible GBS vs conversion disorder - rec MR T/L spine, LP on 07/13. DM2: Without hyperglycemia, initial BG of 123, last A1c of 6.1 (02/18/16) Controlled at home with PO meds and 10 units lantus HS Will continue insulin, hold PO medications, and add SSI. Blood sugar stable (07/12). Seizure disorder Last seizure reported approximately 4 years prior to admission Continue home topiramate 50 mg a.m., 100 mg at bedtime Hypothyroid No acute issues at this time TSH on admission normal at 1.35 Continue home [place] Thyroid 30 mg Admitted From: home Medication Reconciliation: Verified Quality Measures DVT Prophylaxis: SCDs Leal Catheter: none Disposition Discharge Location: OT recommending 5-7, if PT recommends 5-7 would consult PM&R. Estimated Discharge Date: TBD, awaiting neuro, PT and CM recs Outpatient Testing: TBD Subjective Pt indicates that she is doing well today, but continues to have weakness in her legs. She denies rash, SOB, cough, loss of bladder/bowel control, fever, chills, N/V/D, dysuria, changes in bowel habits. Review of Systems The following system(s) were reviewed: All other systems reviewed and negative, other than HPI. Objective BP 100/69 (BP Location: Right arm, Patient Position: Lying) Pulse 70 Temp 98.1 F (36.7 C) (Oral) Resp (!) 20 Ht 5' 6 Wt 88.5 kg (195 lb 1.7 oz) LMP 07/07/2015 (Exact Date) SpO2 97% BMI 31.49 kg/m Physical Examination General Appearance: alert, cooperative, in no acute distress. HEENT: Head- normocephalic; Eyes- PERRLA, EOMI; Ears- external auditory canals clear, hearing intact; Nose- no nasal discharge; Throat- oropharynx normal Cardiovascular: regular rate and rhythm; normal S1, S2; no murmurs, rubs, clicks or gallops; no peripheral edema. Respiratory: lungs clear to auscultation; without wheezes, rales or rhonchi Abdomen: soft, non-tender, non-distended; positive bowel sounds Neurological: Strength diminished in LE bilaterally, otherwise CN II - XII intact. alert, oriented,normal speech; no focal findings or movement disorder noted Musculoskeletal: no significant deformity or tenderness to palpation Skin: normal coloration, texture and turgor; no lesions or eruptions Results/Medications Reviewed 07/12/18 1:54 PM Laboratory, Radiology, Cardiology, Medications and Transcriptions in this encounter* Rosie Pérez MD - 07/22/2019 8:45 AM EDT DAILY PROGRESS NOTE Name: Delmy Buchanan RN: [id number] Admit Date: 07/20/2019 1:40 AM Visit status: Admission PCP: JHONNY FELIX Code status:Full Code Subjective: Patient seen and examined. D/W staff. Patient complaining of headache. No chest pain,SOB, palpitation No fever No frequency, urgency, dysuria No diarrhoea, vomiting or abdominal pain PHYSICAL EXAM: Blood pressure 104/68, pulse 62, temperature 97.3 F (36.3 C), temperature source Temporal, resp. rate 14, height 5' 6 (1.676 m), weight 206 lb 9.1 oz (93.7 kg), SpO2 98 %. General appearance: No apparent distress HEENT: AT/NC Neck: No jugular venous distention Respiratory: Normal respiratory effort. Clear to auscultation, bilaterally without Rales/Wheezes/Rhonchi. Cardiovascular: Regular rate and rhythm with normal S1/S2 without murmurs, rubs or gallops. Abdomen: Soft, non-tender, non-distended with normal bowel sounds. Musculoskeletal: No clubbing, cyanosis or edema bilaterally Skin: No rashes or lesions. Neurologic: Neurovascularly intact without any focal sensory/motor deficits. Cranial nerves: II-XIIintact, grossly non-focal. MEDICATIONS Current Facility-Administered Medications Medication Dose Route Frequency Provider Last Rate Last Dose enoxaparin (LOVENOX) injection 40 mg 40 mg Subcutaneous Daily Salvador Moreira APRN - ACCOUNTING COORDINATOR 40 mg at 07/21/19 0835 polyethylene glycol (GLYCOLAX) packet 17 g 17 g Oral Daily Salvador Moreira APRN - ACCOUNTING COORDINATOR 17 g at 07/21/19 1202 insulin lispro (HUMALOG) injection vial 0-12 Units 0-12 Units Subcutaneous TID WC Salvador Moreira DB2 SYSTEMS PROGRAMMER - ACCOUNTING COORDINATOR insulin lispro (HUMALOG) injection vial 0-6 Units 0-6 Units Subcutaneous Nightly Salvador Moreira APRN - ACCOUNTING COORDINATOR 2 Units at 07/21/192020 acetaminophen (TYLENOL) tablet 1,000 mg 1,000 mg Oral Q8H PRN Salvador Moreira DB2 SYSTEMS PROGRAMMER - ACCOUNTING COORDINATOR 1,000 mg at 07/21/192011 promethazine (PHENERGAN) tablet 12.5 mg 12.5 mg Oral Q6H PRN Salvador P Harish, DB2 SYSTEMS PROGRAMMER - ACCOUNTING COORDINATOR Or ondansetron (ZOFRAN) injection 4 mg 4 mg Intravenous Q6H PRN Salvador P Harish, DB2 SYSTEMS PROGRAMMER - ACCOUNTING COORDINATOR labetalol (NORMODYNE;TRANDATE) injection 10 mg 10 mg Intravenous Q1H PRN Salvador P Schbrant, DB2 SYSTEMS PROGRAMMER - ACCOUNTING COORDINATOR hydrALAZINE (APRESOLINE) injection 10 mg 10 mg Intravenous Q1H PRN Salvador P Harish, DB2 SYSTEMS PROGRAMMER - ACCOUNTING COORDINATOR atorvastatin (LIPITOR) tablet 40 mg 40 mg Oral Nightly Salvador P Schnick, DB2 SYSTEMS PROGRAMMER - ACCOUNTING COORDINATOR 40 mg at 07/21/192011 ipratropium-albuterol (DUONEB) nebulizer solution 1 ampule 1 ampule Inhalation Q4H PRN Salvador P Harish, DB2 SYSTEMS PROGRAMMER - ACCOUNTING COORDINATOR glucose (GLUTOSE) 40 % oral gel 15 g 15 g Oral PRN Salvador P Harish, DB2 SYSTEMS PROGRAMMER - ACCOUNTING COORDINATOR dextrose 50 % IV solution 12.5 g Intravenous PRN Salvador P Harish, DB2 SYSTEMS PROGRAMMER - ACCOUNTING COORDINATOR glucagon (rDNA) injection 1 mg 1 mg Intramuscular PRN Salvador P Harish, DB2 SYSTEMS PROGRAMMER - ACCOUNTING COORDINATOR topiramate (TOPAMAX) tablet 100 mg 100 mg Oral Nightly Salvador P Harish, DB2 SYSTEMS PROGRAMMER - ACCOUNTING COORDINATOR 100 mg at 07/21/19 2017 topiramate (TOPAMAX) tablet 25 mg 25 mg Oral Daily Salvador P Harish, DB2 SYSTEMS PROGRAMMER - ACCOUNTING COORDINATOR 25 mg at 07/21/19 1001 repaglinide (PRANDIN) tablet 0.5 mg 0.5 mg Oral TID AC Salvador P Harish, DB2 SYSTEMS PROGRAMMER - ACCOUNTING COORDINATOR 0.5 mg at 07/22/19 0702 gabapentin (NEURONTIN) capsule 300 mg 300 mg Oral 4x Daily Salvadorlay Moreira, DB2 SYSTEMS PROGRAMMER - ACCOUNTING COORDINATOR 300 mg at 07/21/192010 aspirin chewable tablet 81 mg 81 mg Oral Daily Salvador P Harish, DB2 SYSTEMS PROGRAMMER - ACCOUNTING COORDINATOR 81 mg at 07/21/19 0835 DATA: I/O (24Hr): Intake/Output Summary (Last 24 hours) at 07/22/2019 0845 Last data filed at 07/21/2019 1300 Gross per 24 hour Intake 250 ml Output 800 ml Net -550 ml Labs: Recent Labs 07/20/19 0329 07/21/19 0226 07/22/19 0528 WBC 6.7 6.5 4.4 HGB 14.0 13.8 13.9 PLT 243 174 201 Recent Labs 07/20/19 0329 07/21/19 0226 07/22/19 0521 NA 135 136 136 K 3.9 3.9 3.9 CL 105 107 105 CO2 21* 22 21* BUN 18 17 16 CREATININE 0.63 0.70 0.93 GLUCOSE 155* 117* 158* No results for input(s): AST, ALT, ALB, BILITOT, ALKPHOS in the last 72 hours. Reviewed all pertinent Labs and Radiology reports ASSESSMENT AND PLAN: 1. Right sided weakness Patient still complaining of rt arm weakness. Neuro on case. Per neuro notes from 07/22/2019 Etiology unclear. Initially treated as possible L hemispheric ischemic stroke although MRI brain without acute intracranial abnormality. Concern for possible cervicalspine process vs conversion disorder. Per neuro If MRI C-spine normal and symptoms persist over next few weeks, recommend follow up with general neurology for EMG/NCT. 2. HTN 3. DM 2 - HBA1C 8.2 Patient was on prandin, jardiance at home. Will resume on discharge. On ISS now. 4. NAGMA Resolved. 5. Obesity 6. Hx of Seizure C/w topamax, neurontin. 7. DVT/GI Prophylaxis Addressed. Rosie Pérez MD Pager- [phone] Date of Service: 07/22/19 Time of Service: 8:45 AM * Salvador Moreira, DB2 SYSTEMS PROGRAMMER - ACCOUNTING COORDINATOR - 07/21/2019 4:19 PM EDT ICU TRANSFER CHECKLIST Transfer Med Reconciliation (resume home meds if able, convert to PO if able) Complete Antibiotics (name, indication, duration, convert to PO if able) None Steroid (indication, duration, convert to PO if able) None Anticipated [place] Medications (ICU initiated) or Dose Changes and Indication Yes, addressed in today's progress note Permanently Discontinued Home Medications and Reason for medication contraindication No Leal Catheter (please remove if able) No Central Line (please remove if able) No Transfer Discussed with: Dr. Spencer If additional questions for ICU team within 24 hours of ICU transfer, page [phone] for clarifications. * Salvador Moreira APRN - CNP - 07/21/2019 2:30 PM EDT Critical Care Progress Note Subjective: Admit Date: 07/20/2019 PCP: JHONNY FELIX Interval History: Sitting in chair. Complains of headache. Continues with RUE weakness. Denies f/c,cp, sob, n/v/c/d. Diet: DIET CARDIAC; Medications: Scheduled Meds: enoxaparin 40 mg Subcutaneous Daily polyethylene glycol 17 g Oral Daily atorvastatin 40 mg Oral Nightly topiramate 100 mg Oral Nightly topiramate 25 mg Oral Daily repaglinide 0.5 mg Oral TID AC gabapentin 300 mg Oral 4x Daily aspirin 81 mg Oral Daily Continuous Infusions: Objective: Vitals: BP 101/64 Pulse 72 Temp 97.6 F (36.4 C) (Temporal) Resp (!) 7 Ht 5' 6 (1.676 m) Wt 206 lb 9.1 oz (93.7 kg) SpO2 97% BMI 33.34 kg/m Intake/Output Summary (Last 24 hours) at 07/21/2019 1510 Last data filed at 07/21/2019 1200 Gross per 24 hour Intake 2385 ml Output 1750 ml Net 635 ml Results: ABG: No results for input(s): PHART, PO2ART, FVP4XRU, BBI6UGP, BEART, D7CALFTG in the last 72 hours. CBC: Recent Labs 07/20/19 0329 07/21/19 022 WBC 6.7 6.5 HGB 14.0 13.8 PLT 243 174 BMP: Recent Labs 07/20/19 0329 07/21/19225 NA 135 136 K 3.9 3.9 CL 105 107 CO2 21* 22 BUN 18 17 CREATININE 0.63 0.70 GLUCOSE 155* 117* . Ionized Calcium: Lab Results Component Value Date IONCA 4.20 07/20/2019 Hepatic: No results for input(s): AST, ALT, ALB, BILITOT, ALKPHOS in the last 72 hours. Troponin: Recent Labs 07/20/19 0329 07/20/19 1047 07/21/19 0226 TROPONINI <0.012 <0.012 <0.012 Physical Exam Vitals signs and nursing note reviewed. Constitutional: General: She is awake. She is not in acute distress. Appearance: She is obese. She is not ill-appearing or diaphoretic. HENT: Head: Normocephalic and atraumatic. Mouth/Throat: Mouth: Mucous membranes are moist. Pharynx: Oropharynx is clear. Eyes: General: No scleral icterus. Extraocular Movements: Extraocular movements intact. Conjunctiva/sclera: Conjunctivae normal. Pupils: Pupils are equal, round, and reactive to light. Neck: Thyroid: No thyromegaly. Trachea: No tracheal deviation. Cardiovascular: Rate and Rhythm: Normal rate and regular rhythm. Pulses: Normal pulses. Heart sounds: Normal heart sounds. No murmur. No friction rub. No gallop. Pulmonary: Effort: No tachypnea, accessory muscle usage or retractions. Breath sounds: No decreased breath sounds, wheezing, rhonchi or rales. Abdominal: General: Abdomen is flat. Bowel sounds are normal. There is no distension. Palpations: Abdomen is soft. Tenderness: There is no abdominal tenderness. Hernia: No hernia is present. Musculoskeletal: Right lower leg: No edema. Left lower leg: No edema. Skin: General: Skin is warm and dry. Capillary Refill: Capillary refill takes less than 2 seconds. Coloration: Skin is not cyanotic. Nails: There is no clubbing. Neurological: Mental Status: She is alert and oriented to person, place, and time. GCS: GCS eye subscore is 4. GCS verbal subscore is 5. GCS motor subscore is 6. Sensory: Sensation is intact. Comments: LUE, RLE, LLE with 5/5 strength, RUE with 4/5 strength. Psychiatric: Mood and Affect: Mood normal. Behavior: Behavior normal. Behavior is cooperative. Assessment and Plan: 1. Right side weakness: Neuro following, some resolution with LE after TPA but right arm weakness persists. MRI head normal, Echo and EEG normal. ?cervical spine issue vs conversion d/o. MRI c-spine pending 2. HTN: Controlled. 3. DM: Glucose controlled 4. NAGMA: Resolved 5. Obesity: Lifestyle modification 6. Hx Sz: On home meds. Dispo: Transfer to 3W/4W. ICU Prophylaxis: Stress ulcer: [] PPI Agent [] H2RA [] Sucralfate [] Other: VTE: [x] Enoxaparin [] SC Heparin [x] SCD Plan of care discussed with Dr. Harrington Associated attestation - Vincent Harrington MD - 07/21/2019 6:23 PM EDT Patient seen and examined independently by me. Above discussed and I agree with DB2 SYSTEMS PROGRAMMER note except where indicated in the EMR revision history. Also see my additional comments and changes indicated by discrete font, text color, italics, and/or initials. Labs, cultures, and radiographs where availablewere reviewed. Changes were made in the orders as necessary. I discussed patient concerns with Delmy's R.Brandon and instructions were given. Respiratory care issues addressed. Please see our orders forthe updated patient care plan. As noted; negative MRI for acute stroke, again suggesting conversion disorder or malingering. Ok to floor on current Rx with neuro follow-up. * Tamra Daniel, PT - 07/21/2019 12:52 PM EDT Physical Therapy Facility/Department: [facility] ICU T2 Initial Assessment NAME: Delmy Buchanan : 1980 Date of Service: 07/21/2019 Discharge Recommendations: (facility based therapy at discharge) PT Equipment Recommendations Equipment Needed: No Assessment Body structures, Functions, Activity limitations: Decreased functional mobility ;Decreased endurance;Decreased strength;Decreased balance;Decreased coordination Assessment: Patient has decreased sensation in right UE and LE. She has delayed movement in her right UE and LE. She compensates well with her left hand. She is somewhat quiet, removed. Recommend facility based therapy for her at discharge. Treatment Diagnosis: decreased function and mobility Prognosis: Good Decision Making: Medium Complexity PT Education: Goals;PT Role;General Safety REQUIRES PT FOLLOW UP: Yes Activity Tolerance Activity Tolerance: Patient limited by endurance;Patient limited by cognitive status Patient Diagnosis(es): There were no encounter diagnoses. has a past medical history of DM2 (diabetes mellitus, type 2) (HCC), Seizure (HCC), and TIA (transient ischemic attack). has a past surgical history that includes Cholecystectomy; Hysterectomy; and Ankle surgery (Left). Restrictions Restrictions/Precautions Restrictions/Precautions: Seizure(known seizure disorder) Required Braces or Orthoses?: No Position Activity Restriction Other position/activity restrictions: slowed movement in right hand/arm and in right leg/foot. Recommended that she not drive. Vision/Hearing Vision: Within Functional Limits Hearing: Within functional limits Subjective General Chart Reviewed: Yes Patient assessed for rehabilitation services?: Yes Response To Previous Treatment: Not applicable Family / Caregiver Present: No Diagnosis: acute ischemic stroke s/p tpA. 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 She drives, works. Cognition Objective Observation/Palpation Posture: Fair Observation: she is slow and cautious with movement AROM RLE (degrees) RLE General AROM: decreased and slowed movement in right LE AROM LLE (degrees) LLE AROM : WNL Strength RLE Comment: 3-/5 Strength LLE Comment: 5/5 Tone RLE RLE Tone: (slowed movement with right LE) Tone LLE LLE Tone: Normotonic Motor Control Gross Motor?: (delayed) Coordination Rapid Alternating Movements: (decreased) Sensation Overall Sensation Status: (decreased sensation in right UE and LE, somewhat diminished feeling) Bed mobility Supine to Sit: Minimal assistance Scooting: Stand by assistance Transfers Sit to Stand: Moderate Assistance Stand to sit: Minimal Assistance Ambulation Ambulation?: Yes More Ambulation?: No Ambulation 1 Surface: level tile Device: Hand-Held Assist Assistance: Minimal assistance;2 Person assistance Gait Deviations: Slow Janeth;Decreased step height;Shuffles Distance: 6' Stairs/Curb Stairs?: No Balance Posture: Good Sitting - Static: Good;- Sitting - Dynamic: - Standing - Static: Fair;- Standing - Dynamic: Fair;- Plan Plan Times per week: 5 Plan weeks: 2 Current Treatment Recommendations: Strengthening, Transfer Training, Endurance Training, Balance Training, Gait Training, Functional Mobility Training, Stair training Safety Devices Type of devices: All fall risk precautions in place, Patient at risk for falls, Left in chair Restraints Initially in place: No G-Code OutComes Score AM-PAC Score AM-PAC Inpatient Mobility Raw Score : 19 (07/21/19 125) AM-PAC Inpatient T-Scale Score : 45.44 (07/21/191250) Mobility Inpatient CMS 0-100% Score: 41.77 (07/21/191250) Mobility Inpatient CMS G-Code Modifier : CK (07/21/191250) Goals Short term goals Time Frame for Short term goals: 2 weeks Short term goal 1: bed mobility with modif indep. level Short term goal 2: transfers with modif. indep. Short term goal 3: gait x 150' with modif. indep. with or without device. Short term goal 4: stairs x 4 with single railing with supervision. Patient Goals Patient goals : to get stronger, back to baseline function Therapy Time Individual Concurrent Group Co-treatment Time In 1016 Time Out 1038 Minutes 22 Tamra Daniel PT * Rd Carbajal OT - 07/21/2019 12:29 PM EDT Occupational Therapy Occupational Therapy Initial Assessment Date: 07/21/2019 Patient Name: Delmy Buchanan : 1980 Date of Service: 07/21/2019 Discharge Recommendations: IP Rehab Assessment Performance deficits / Impairments: Decreased functional mobility ;Decreased ADL status;Decreased ROM;Decreased strength;Decreased safe awareness;Decreased endurance;Decreased balance;Decreased high-level IADLs;Decreased fine motor control;Decreased coordination Assessment: Admitted with R sided weakness (UE and LE), pt given tPA. According to neuro notes Etiology unclear. Initially treated as possible L hemispheric ischemic stroke although MRI brain without acute intracranial abnormality. Concern for possible cervical spine process vs conversion disorder . Pt lives in converted garage apt at her parents house with her 3 dogs. 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 On eval presents with decreased motor planning and coodination with CHRISTIAN Medel (she is R handed). Pt has ~85 degrees of shoulder flexion on R, able to make near composite fistand extension of digits actively both with increased time and poor coordination. Pt able to complete bed mob with min A, fxl transfers from EOB and chair min A, pt has difficulty with dorsiflexion ofR ankle and may need AFO. Pt min A with LBD d/t poor coordination with RUE. Pt would benefit most from IP rehab placement. Prognosis: Good Decision Making: Low Complexity OT Education: OT Role;Plan of Care;Transfer Training;ADL Adaptive Strategies REQUIRES OT FOLLOW UP: Yes Safety Devices Safety Devices in place: Yes Type of devices: Call light within reach;Patient at risk for falls;Left in chair Patient Diagnosis(es): There were no encounter diagnoses. has a past medical history of DM2 (diabetes mellitus, type 2) (HCC), Seizure (HCC), and TIA (transient ischemic attack). has a past surgical history that includes Cholecystectomy; Hysterectomy; and Ankle surgery (Left). 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 Objective Orientation Overall Orientation Status: Within Normal Limits Balance Sitting Balance: Stand by assistance Standing Balance: Minimal assistance ADL LE Dressing: Minimal assistance Tone RUE RUE Tone: Normotonic Tone LUE LUE Tone: Normotonic Coordination Movements Are Fluid And Coordinated: No Coordination and Movement description: Fine motor impairments;Gross motor impairments;Decreased speed;Decreased accuracy;Right UE Bed mobility Supine to Sit: Minimal assistance Scooting: Stand by assistance Transfers Sit to stand: Minimal assistance Stand to sit: Minimal assistance LUE AROM (degrees) LUE AROM : WFL RUE AROM (degrees) RUE AROM : WFL(increased time required for all RUE movement. ) Plan Plan Times per week: 3-5 Plan weeks: 2 Current Treatment Recommendations: Strengthening, ROM, Balance Training, Functional Mobility Training, Endurance Training, Gait Training, Neuromuscular Re-education, Pain Management, Safety Education& Training, Patient/Caregiver Education & Training, Equipment Evaluation, Education, & procurement, Self-Care / ADL, Home Management Training G-Code OutComes Score AM-PAC Score AM-PAC Inpatient Daily Activity Raw Score: 18 (07/21/19 122) AM-PAC Inpatient ADL T-Scale Score : 38.66 (07/21/19 122) ADL Inpatient CMS 0-100% Score: 46.65 (07/21/19 122) ADL Inpatient CMS G-Code Modifier : CK (07/21/191220) Goals Short term goals Time Frame for Short term goals: 2 weeks Short term goal 1: LBD with AE SBA Short term goal 2: toileting SBA Short term goal 3: grooming at sink in FWW SBA Short term goal 4: FWW safety no cues Therapy Time Individual Concurrent Group Co-treatment Time In 1017 Time Out [address]aj[address] OT Goals and/or treatment plan was established in collaboration with patient/family/other representatives. Patient's Occupational Therapy Plan [facility] * Tamra Daniel PT - 07/21/2019 7:38 AM EDT Physical Therapy PT orders received. Patient on BR at this time. PT will await activity orders. * Jennyfer Bolden MD - 07/21/2019 7:26 AM EDT PROGRESS NOTE. NEUROLOGY Patient Name:Delmy Buchanan Patient : 1980 Acct: [id number] Date of Admission: 07/20/2019 Room/Bed: T204/Y30295 PCP: No primary care provider on file. Patient location ICU Remains in the hospital for completion of stroke riskassessment, Subjective: 38F PMH T2DM, TIA, seizure disorder (Topamax/neurontin), AVM, fibromyalgia presented toOSH 07/18 with acute R sided weakness. At OSH ER NIH 7. CTH/CTA read as no acute process. Pt treatedwith tPA @ 2137 due to concern for possible ischemic stroke. MRI negative. New Complaint: No acute events overnight. Still complaints of R sided weakness/numbness. Sedation:No Diet/TF:regular Leal: No VTE prophylaxis: YES Lovenox Antithrombotic therapy in first 24 hrs: YES tPA Statin therapy for stroke stroke patients: High intensity Anticoagulation on AF patients: N/A no history of AF Activity: Up walking Disposition: Out to floor today Current Hospital Medications: Current Facility-Administered Medications: enoxaparin (LOVENOX) injection 40 mg, 40 mg, Subcutaneous, Daily, Nuvia Pickard APRN - LUISA promethazine (PHENERGAN) tablet 12.5 mg, 12.5 mg, Oral, Q6H PRN OR ondansetron (ZOFRAN) injection 4 mg, 4 mg, Intravenous, Q6H PRN, Lisa Gomes MD labetalol (NORMODYNE;TRANDATE) injection 10 mg, 10 mg, Intravenous, Q1H PRN, Lisa Gomes MD hydrALAZINE (APRESOLINE) injection 10 mg, 10 mg, Intravenous, Q1H PRN, Lisa Gomes MD atorvastatin (LIPITOR) tablet 40 mg, 40 mg, Oral, Nightly, Lisa Gomes MD, 40 mg at 07/20/19 2154 perflutren lipid microspheres (DEFINITY) injection 1.65 mg, 1.5 mL, Intravenous, ONCE PRN, Lisa Green MD, 1.65 mg at 07/20/19 0910 sodium chloride flush 0.9 % injection 10 mL, 10 mL, Intravenous, PRN, Lisa Gomes MD 0.9 % sodium chloride infusion, , Intravenous, Continuous, Vincent Harrington MD, Last Rate: 50 mL/hr at 07/20/19 1422 ipratropium-albuterol (DUONEB) nebulizer solution 1 ampule, 1 ampule, Inhalation, Q4H PRN, Lisa Green MD glucose (GLUTOSE) 40 % oral gel 15 g, 15 g, Oral, PRN, Lisa Gomes MD dextrose 50 % IV solution, 12.5 g, Intravenous, PRN, Lisa Gomes MD glucagon (rDNA) injection 1 mg, 1 mg, Intramuscular, PRN, Lisa Gomes MD dextrose 5 % solution, 100 mL/hr, Intravenous, PRN, Lisa Gomes MD acetaminophen (TYLENOL) tablet 1,000 mg, 1,000 mg, Oral, Q8H PRN, Vincent Harrington MD, 1,000 mg at 07/20/19 1426 topiramate (TOPAMAX) tablet 100 mg, 100 mg, Oral, Nightly, Vincent Harrington MD, 100 mg at 07/20/19 215 topiramate (TOPAMAX) tablet 25 mg, 25 mg, Oral, Daily, Vincent Harrington MD, 25 mg at 07/20/19 1618 repaglinide (PRANDIN) tablet 0.5 mg, 0.5 mg, Oral, TID AC, Vincent Harrington MD, 0.5 mg at 07/21/19 06 insulin regular (HUMULIN R;NOVOLIN R) injection 0-12 Units, 0-12 Units, Subcutaneous, 4x Daily AC & HS, Vincent Harrington MD, 2 Units at 07/21/19 0613 gabapentin (NEURONTIN) capsule 300 mg, 300 mg, Oral, 4x Daily, Vincent Harrington MD, 300 mg at 07/20/192153 aspirin chewable tablet 81 mg, 81 mg, Oral, Daily, Jennyfer Bolden MD, 81 mg at 07/20/192153 morphine (PF) injection 2 mg, 2 mg, Intravenous, Q3H PRN, Vincent Harrington MD, 2 mg at 07/21/19 0411 Continuous Infusions: sodium chloride 50 mL/hr at 07/20/19 1422 dextrose Allergies: Iodides; Iodine; Metformin; Nortriptyline; and Sulfa antibiotics Review of Systems Constitutional: Positive for fatigue. HENT: Negative for trouble swallowing and voice change. Eyes: Negative for visual disturbance. Respiratory: Negative for cough and shortness of breath. Cardiovascular: Negative for palpitations. Gastrointestinal: Negative for diarrhea and vomiting. Genitourinary: Negative for dysuria. Musculoskeletal: Negative for back pain and gait problem. Skin: Negative for pallor. Neurological: Positive for weakness, numbness and headaches. Negative for dizziness, tremors, seizures, syncope, facial asymmetry, speech difficulty and light-headedness. Psychiatric/Behavioral: Negative for confusion. The patient is not nervous/anxious. Objective: Telemetry: Arrhythmia:No Physical Examination: Patient Vitals for the past 8 hrs: BP Temp Temp src Pulse Resp SpO2 Weight 07/21/19 0700 114/83 69 14 96 % 07/21/19 0600 106/75 59 13 96 % 07/21/19 0546 206 lb 9.1 oz (93.7 kg) 07/21/19 0500 107/82 61 15 95 % 07/21/19 0400 113/71 97.7 F (36.5 C) Temporal 67 14 98 % 07/21/19 0300 106/71 56 14 97 % 07/21/19 0210 108/72 67 12 98 % 07/21/19 0100 (!) 133/94 57 14 95 % 07/21/19 0000 (!) 128/100 97.6 F (36.4 C) Temporal 74 14 94 % I/O last 3 completed shifts: In: 2675 [P.O.:1400; I.V.:1275] Out: 1400 [Urine:1400] General Physical Examination: General: alert and obese HEENT:Normocephalic, atraumatic CV: S1+S2, RRR, no MRG. Pulm:CTA b/l, unlabored Abdomen: Soft NT/ND. BS + Skin: Intact without ulcers, breakdowns or discoloration Extremities: normal with no edema or cyanosis Orthopedic limitation; No Pulses: Intact peripherally Carotid auscultation :No bruits Neurological Examination: Higher Functions: Mental Status Exam: Level of Alertness:Awake Orientation: Normal to self, time, place Memory: Normal Fund of Knowledge: Normal Language: Normal Dysarthria not present Cranial Nerves: -II Visual acuity: normal -II Visual cope: normal -III Pupils (~ 3 mm OD, 3 mm OU) equal, round, reactive to light -III-IV- Extraocular Movements: intact -Nystagmus not present -Saccades and pursuits normal -V Facial sensation: abnormal decreased on R Corneal's Intact bilateral -VII Facial strength: Normal -VIII Hearing: intact -IX-X- Gag reflex present -X Palate:intact -XI Shoulder shrug: intact -XII Tongue movement: normal Motor Examination: Tone after evaluation of 4 limbs, the following findings applied: Normal -Bulk: normal -Muscle Stretchafter evaluation of all limbs, and axial musculature the following findings applied: Drift: Drift to RUE (exam somewhat concerning for embellishment. R side weak against resistance +3/5 -Reflexes: after evaluation of 4 limbs, the following findings applied ; normal all limbs -Plantar responce: Flexor bilaterally Sensory decreased right side, Coordination: Arms patient unable to perform test due to sedation, paralysis or limb orthopedic circumstances Legs patient unable to perform testdue to sedation, paralysis or limb orthopedic circumstances Tremors patient unable to perform test due to sedation, paralysis or limb orthopedic circumstances Gait abnormal, patient unable to walk due to acute circumstances / bedrest / safety concerns ANCILLARY Last 24hrs Recent Results (from the past 24 hour(s)) POCT Glucose Collection Time: 07/20/19 8:15 AM Result Value Ref Range POC Glucose 161 (H) 70 - 100 mg/dL Troponin Collection Time: 07/20/19 10:47 AM Result Value Ref Range Troponin I <0.012 0.000 - 0.034 ng/mL POCT Glucose Collection Time: 07/20/19 4:25 PM Result Value Ref Range POC Glucose 154 (H) 70 - 100 mg/dL POCT Glucose Collection Time: 07/20/19 9:31 PM Result Value Ref Range POC Glucose 175 (H) 70 - 100 mg/dL Basic Metabolic Panel w/ Reflex to MG Collection Time: 07/21/19 2:26 AM Result Value Ref Range Sodium 136 135 - 145 mmol/L Potassium 3.9 3.5 - 5.1 mmol/L Chloride 107 98 - 107 mmol/L CO2 22 22 - 30 mmol/L Anion Gap 8 NA Glucose 117 (H) 70 - 100 mg/dL BUN 17 7 - 20 mg/dL CREATININE 0.70 0.52 - 1.25 mg/dL eGFR >60.0 >60 mL/min EGFR IF NonAfrican [place] >60.0 >60 mL/min Calcium 8.8 8.4 - 10.4 mg/dL CBC auto differential Collection Time: 07/21/19 2:26 AM Result Value Ref Range WBC 6.5 3.6 - 10.7 10*3/uL RBC 5.09 3.80 - 5.20 10*6/uL Hemoglobin 13.8 11.7 - 16.0 g/dL Hematocrit 42.1 35.0 - 47.0 % MCV 82.8 79.0 - 98.0 fL MCH 27.1 26.0 - 34.0 pg MCHC 32.7 32.0 - 36.0 % RDW 16.1 (H) 11.5 - 14.5 % Platelets 174 140 - 440 10*3/uL MPV 8.7 7.4 - 10.4 fL Granulocytes % 42.7 40.0 - 80.0 % Lymphocyte % 42.8 (H) 20.0 - 40.0 % Monocytes 5.8 2.0 - 10.0 % Eosinophils 7.2 (H) 1.0 - 6.0 % Basophils 1.5 0.0 - 2.0 % Absolute Neut # 2.8 1.8 - 7.0 10*3/uL Absolute Lymph # 2.8 1.0 - 4.3 10*3/uL Absolute Wilkinson # 0.4 0.0 - 0.8 10*3/uL Absolute Eos # 0.5 0.0 - 0.5 10*3/uL Absolute Baso # 0.1 0.0 - 0.2 10*3/uL Troponin Collection Time: 07/21/19 2:26 AM Result Value Ref Range Troponin I <0.012 0.000 - 0.034 ng/mL POCT Glucose Collection Time: 07/21/19 6:11 AM Result Value Ref Range POC Glucose 170 (H) 70 - 100 mg/dL Recent Labs 07/20/19 0329 PH 7.42 Stroke Specific: Lipids: Recent Labs 07/20/19 0329 CHOL 216* LDLCHOLESTEROL 112* TRIG 372* HDL 30* HgA1c: Recent Labs 07/20/19 0329 [address]1C 8.2* CT Head 07/19/19: Negative CT examination of the brain. Left maxillary sinusitis. EKG 07/20/19: Intervals Gilbert Rate: 63 P: 28 DE: 139 QRS: 7 QRSD: 89 T: 21 QT: 406 QTc: 416 Interpretive Statements Sinus rhythm Abnormal R-wave progression, early transition EEG 07/20/19: Impression: This EEG is normal during wakefulness, drowsiness, and sleep. No clear seizures or epileptiform activity were seen. MRI Brain 07/20/19: No evidence of acute ischemic injury. Partial corpus callosum agenesis. Few punctate foci of nonspecific leukomalacia within the bilateral parietal distributions. No abnormal enhancement or evidence of susceptibility artifact to suggest underlying arteriovenous malformation nidus. There is a small d evelopmental venous anomaly seen within the inferior left frontal lobe distribution. TTE 07/20/19: Left ventricle: Systolic function is normal by the biplane method of disks. The estimated ejection fraction is 64%. There are no regional wall motion abnormalities. Left ventricular diastolic function parameters are normal. 2. Right ventricle: Systolic function is normal. Right ventricular systolic pressure is within the normal range. 3. Atrial septum: Color Doppler shows no shunt. There is no evidence of right to left shunting with injection of agitated saline contrast. 4. No significant valve disease. 5. No source of embolism is identified. LA WNL ASSESSMENT / PLAN/RECOMMENDATIONS: R sided weakness/numbness - Etiology unclear. Initially treated as possible L hemispheric ischemic stroke although MRI brain without acute intracranial abnormality. Concern for possible cervical spine process vs conversion disorder - Check MRI C-Spine - Though not stroke/TIA, given risk factors would continue ASA 81 and statin - PT/OT - If MRI C-spine normal and symptoms persist over next few weeks, recommend follow up with general neurology for EMG/NCT History of seizures - On Topamax and Neurontin T2DM - A1C 8.2%, goal <7.0% HTN - Suggest normotension <140/90 HLD - LDL 112, goal <70 - Statin Obesity - BMI 33.7 History of AVM - Follows at [facility] for this Pt OK to transfer to floor. If MRI C-spine normal, no further neuro recs. Patient seen and discussed with Dr. Bolden Addendum MRI of the C spine obtained looks normal , Her exam was very embeledlled, I am giving her the benefit of the doubt because of her risk factorsand because of the fact that MRI some times may give false negatives Having said so, her exam has fluctuated and the drift is without pronation NO further recommendations, will sign off Aggressive secondary prevention and treat as stroke post tPA until proven other guzman Will need rehab ( even if not organic ) * Starla Tse RD, LD - 07/20/2019 4:44 PM EDT Nutrition Assessment Type and Reason for Visit: Initial Nutrition Recommendations: 1. Continue with cardiac diet and add CHO controlled (4 CHO/tray) diet per MNT protocol. 2. Monitor need for DM education. 3. Monitor nutritional status. Nutrition Assessment: Pt admits with acute R motor weakness, treated as acute stroke with tPA - little change in symptoms; neg head CT; other considerations s/p post-ictal, Joel's, migraine. Pt with PMH of DM2, seizure. Malnutrition Assessment: Malnutrition Status: Insufficient data Context: Acute illness or injury Nutrition Risk Level: High Nutrient Needs: Estimated Daily Total Kcal: 25-30 kcals/kg IBW (59kgs) = 8368-3428 kcals/day Estimated Daily Protein (g): 1.2-1.4g protein/kg IBW = 71-83g protein/day Estimated Daily Total Fluid (ml/day): per MD Nutrition Diagnosis: Problem: Altered nutrition-related lab values Etiology: related to Endocrine dysfunction ? Signs and symptoms: as evidenced by Lab values(HgBA1C 8.2) Objective Information: Nutrition-Focused Physical Findings: Trace generalized edema Current Nutrition Therapies: Oral Diet Orders: Cardiac Oral Diet intake: Unable to assess(diet just advanced.) Anthropometric Measures: Ht: 5' 6 (167.6 cm) Current Body Wt: 208 lb (94.3 kg) Arbon Body Wt: 130 lb (59 kg), % Arbon Body 160% BMI Classification: BMI 30.0 - 34.9 Obese Class I Nutrition Interventions: Modify current diet Continued Inpatient Monitoring Nutrition Evaluation: Evaluation: Goals set Goals: Pt consumes >50-75% meals consistently. Monitoring: Meal Intake, Skin Integrity, I&O, Weight, Pertinent Labs Contact Number: Pager #[phone] * Vincent Harrington MD - 07/20/2019 1:01 PM EDT ICU Progress Note 07/20/2019 1:02 PM Subjective: Admit Date: 07/20/2019 PCP: No primary care provider on file. Interval History: Seen in follow-up for Dr Shepherd Awake, alert, no events Feels R weakness may be a little better; no new weakness Has c/o (L) cephalgia without nausea, parasthesias, visual changes/aura Full ROS otherwise negative. Passed speech for diet. Diet: DIET CARDIAC; Medications: Scheduled Meds: atorvastatin 40 mg Oral Nightly topiramate 100 mg Oral Nightly topiramate 25 mg Oral Daily repaglinide 0.5 mg Oral TID AC insulin regular 0-12 Units Subcutaneous 4x Daily AC & HS gabapentin 300 mg Oral 4x Daily Continuous Infusions: sodium chloride 75 mL/hr at 07/20/19 0307 dextrose CBC: Recent Labs 07/20/19 0329 WBC 6.7 HGB 14.0 PLT 243 BMP: Recent Labs 07/20/19 0329 NA 135 K 3.9 CL 105 CO2 21* BUN 18 CREATININE 0.63 GLUCOSE 155* Hepatic: No results for input(s): AST, ALT, ALB, BILITOT, ALKPHOS in the last 72 hours. Troponin: Recent Labs 07/20/19 0329 07/20/19 1047 TROPONINI <0.012 <0.012 BNP: No results for input(s): BNP in the last 72 hours. Lipids: Recent Labs 07/20/19 0329 CHOL 216* HDL 30* INR: No results for input(s): INR in the last 72 hours. Objective: Vitals: BP (!) 124/90 Pulse 74 Temp 97.1 F (36.2 C) (Temporal) Resp 16 Ht 5' 6 (1.676 m) Wt 208 lb 8.9 oz (94.6 kg) SpO2 97% BMI 33.66 kg/m General appearance: alert and cooperative with exam HEENT: Head: Normal, normocephalic, atraumatic. Eye: Normal external eye, conjunctiva, lids cornea, GABRIELA. Mmm, speech clear, tongue ML, face symmetric Neck: no carotid bruit, no JVD and supple, symmetrical, trachea midline Lungs: clear to auscultation bilaterally and equal air exchange Heart: regular rate and rhythm, S1, S2 normal and no S3 or S4 Abdomen: soft, non-tender; bowel sounds normal; no masses, no organomegaly and no CVAT Extremities: extremities normal, atraumatic, no cyanosis or edema and refill < 3 sec Neurologic: Mental status: Alert, oriented, thought content appropriate, left motor 5/5; right motor decreased shoulder shrug, UE 3/5, LE 4/5 Toes down, decreased DTR, toes down Assessment and Plan: 1. Acute R motor weakness, treated as acute stroke with tPA; little change in symptoms; neg head CT. Other considerations migraine-equivalent or post-ictal Joel's 2. Known seizure disorder 3. DM, elevated A1C 4. Increased BMI Cont post-tPA protocol MRI Diet resume home meds Cont ICU Patient Active Problem List: Acute ischemic stroke (HCC) Seizure (HCC) DM2 (diabetes mellitus, type 2) (HCC) TIA (transient ischemic attack) Obesity High anion gap metabolic acidosis HARSHAD HARRINGTON MD * Melinda Sim - 07/20/2019 8:19 AM EDT Physical Therapy Patient on bedrest due to tPA. Hold PT evaluation. MARY Ruffin documented in this encounter* Angeles Ford II, MD - 08/08/2019 9:40 AM EDT Telephone Visit Via Phone Call Patient ID: Delmy Buchanan is a 38 y.o. female on the phone for a sick visit. Patient phone : [phone] This visit has been fully reviewed with the patient and verbal consent has been obtained. HPI The patient reports she has been having some health problems. 07/19/19 she went to the local ED for what was considered a stroke. She developed sudden right side numbness and weakness. She received tPA and was sent to [facility] in [place] and was hospitalized there for 3 days. Her right arm is still not recovered. She is in PT now, 2-3 days per week. Her RLE is 85% and RUE is 70%. She is taking ASA 81 mg daily and Zetia. The etiology was due to DM and HLD but she also reports her BP has been high due to stress. She reports 150/115. She was told the MRI brain images were clear. With treatment in the hospital, the BP was lower. She is not checking at home. Blood sugars are often 110 in the morning, then up to 125 later in the day. Her last HbA1c was 6.7 a few months ago. Migraine - Headaches have been in remission. Szs - No recent seizure, the last one was perhaps 5 years ago. She was to have ankle surgery in August which has been postponed (left peroneal tendon repair). She has been under more stress due to her son's legal problems. The following portions of the patient's history were reviewed and updated as appropriate: past family history, past social history and past surgical history. Current Outpatient Medications: aspirin 81 mg chewable tablet, Chew and Swallow 81 mg daily ., Disp: , Rfl: ezetimibe (ZETIA) 10 mg tablet, Take 10 mg by mouth daily ., Disp: , Rfl: gabapentin (NEURONTIN) 300 MG capsule, Take 300 mg by mouth every 8 (eight) hours ., Disp: , Rfl: JARDIANCE 25 mg Tab, Take 1 tablet by mouth every morning., Disp: , Rfl: 0 ondansetron (ZOFRAN-ODT) 4 MG disintegrating tablet, Dissolve 4 mg on top of tongue every 4 (four) hours as needed for nausea ., Disp: , Rfl: REPaglinide (PRANDIN) 2 MG tablet, Take 1 tablet by mouth Daily With Food ., Disp: , Rfl: thyroid (ARMOUR) 30 mg tablet, Take 30 mg by mouth every morning ., Disp: , Rfl: topiramate (TOPAMAX) 100 MG tablet, Take 50 mg (1/2 tab) in a.m, and 100 mg (1 tab) in p.m ., Disp:60 tablet, Rfl: 11 UNABLE TO FIND, Relamorelin 10 units 2 x's a day ., Disp: , Rfl: Vascepa 1 gram cap, Take 2 capsules by mouth 2 (two) times a day ., Disp: , Rfl: blood pressure monitor Kit, Take BP daily and record ., Disp: 1 each, Rfl: 0 Assessment/Plan: Acute ischemic stroke (HCC) The patient reports that she had an acute ischemic stroke earlier this month and is now recovering in physical therapy. I do not have any of those records so we will attempt to get those when able. We did spend time discussing secondary stroke prevention. 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 Seizures (HCC) There have been no recent seizures. Essential hypertension The patient was advised to check her blood pressure at home daily as this has been 1 of her stroke risk factors. A prescription was sent for a blood pressure monitor kit. Provider location: [facility] [address] [id number] Patient location: [address] [facility] [place][note 2] [id number] I have spent 21-30 minutes with the patient discussing current HPI. There are other unrelated non-urgent complaints, but due to the busy schedule and the amount of time I've already spent with her, time does not permit me to address these routine issues at today's visit. I've requested another appointment to review these additional issues. documented in this encounter* Angeles Ford II, MD - 11/23/2019 10:41 AM EDT NEUROLOGY PROGRESS NOTE CHIEF COMPLAINT Delmy Buchanan is seen today for Chief Complaint Patient presents with Migraine HPI Delmy Buchanan is here today for a follow up visit regarding headaches and seizures as well as stroke. Since I last saw her, she reports no new neurological symptoms. 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 She is now on both aspirin and Plavix. Her blood pressures been reasonably good. She does have a few headaches but they seem to be more stress related than anything. There have been no recent seizures. Her sleep can be disrupted at times. Blood sugars at home have been higher in the last 2 weeks but before that were usually around 100-1 10. After dinner there more commonly 140-150. REVIEW OF SYSTEMS Review of Systems Constitutional: Positive for appetite change and diaphoresis. Negative for activity change, chills,fatigue, fever and unexpected weight change. HENT: Positive for trouble swallowing. Negative for congestion, dental problem, ear pain, facial swelling, hearing loss, tinnitus and voice change. Eyes: Negative for photophobia, pain and visual disturbance. Respiratory: Negative for cough, shortness of breath and wheezing. Gastrointestinal: Negative for nausea and vomiting. Musculoskeletal: Negative for arthralgias, back pain, gait problem, joint swelling, myalgias and neck pain. Neurological: Negative for dizziness, tremors, seizures, syncope, speech difficulty, weakness, light-headedness, numbness and headaches. Psychiatric/Behavioral: Positive for dysphoric mood and sleep disturbance. Negative for agitation, confusion, decreased concentration, hallucinations and suicidal ideas. The patient is nervous/anxious. MEDICATIONS Current Outpatient Medications Medication Sig Dispense Refill aspirin 81 mg chewable tablet Chew and Swallow 81 mg daily . blood pressure monitor Kit Take BP daily and record . 1 each 0 clopidogreL (PLAVIX) 75 mg tablet Take 1 (one) tablet (75 mg total) by mouth daily . 90 tablet 3 co-enzyme Q-10 30 mg capsule Take 100 mg by mouth 2 (two) times a day . ezetimibe (ZETIA) 10 mg tablet Take 10 mg by mouth daily . gabapentin (NEURONTIN) 300 MG capsule Take 300 mg by mouth every 8 (eight) hours . JARDIANCE 25 mg Tab Take 1 tablet by mouth every morning. 0 ondansetron (ZOFRAN-ODT) 4 MG disintegrating tablet Dissolve 4 mg on top of tongue every 4 (four) hours as needed for nausea . pravastatin (PRAVACHOL) 20 MG tablet Take 20 mg by mouth nightly . REPaglinide (PRANDIN) 2 MG tablet Take 1 tablet by mouth Daily With Food . thyroid (ARMOUR) 30 mg tablet Take 30 mg by mouth every morning . topiramate (TOPAMAX) 100 MG tablet Take 50 mg (1/2 tab) in a.m, and 100 mg (1 tab) in p.m . 135 tablet 3 Vascepa 1 gram cap Take 2 capsules by mouth 2 (two) times a day . UNABLE TO FIND Relamorelin 10 units 2 x's a day . No current facility-administered medications for this visit. ALLERGIES Nortriptyline; Metformin; Sulfa (sulfonamide antibiotics); Ct: iodinated contrast- oral and iv dye;Morphine; and Iodine NEUROLOGICAL EXAMINATION Vital Signs: BP (P) 96/69 Pulse (P) 80 Wt 98.4 kg (217 lb) LMP 07/07/2015 (Exact Date) BMI 35.02 kg/m Body mass index is 35.02 kg/m . General: The patient is in no distress, alert and cooperative with the examination. Mental Status: Language function is fluent without aphasia or dysarthria. Attention and concentration are adequate. The patient is oriented x 3. Recent and remote memory are preserved. The patient s general fund of information is normal. Cranial nerves: Pupils are equal and reactive to light and accommodation. Extraocular movements arefull in all directions. No nystagmus is appreciated. The face appears symmetric and is without weakness. No auditory deficit is detected. The tongue protrudes in the midline and the palate elevates sy mmetrically. Head turning and shoulder shrug are normal. Motor: There is 5 MRC strength in all muscle groups except 4+ MRC bilateral hip flexion. There is normal tone and bulk in all muscles. No tremor of the extremities is noted nor are there any other abnormal movements. Sensation: There is absent vibratory and pins sensation below the knees bilaterally. Reflexes: Deep tendon reflexes are absent in bilateral upper and lower extremities. Coordination: Finger to nose and rapid alternating movements are normal. Gait: The patient has a normal based gait with appropriate arm swing. Tandem walking is difficult for her. LABORATORY AND ADDITIONAL DATA REVIEWED Prior notes Podiatry notes ASSESSMENT / PLAN Acute ischemic stroke (HCC) The patient is a reasonably stable and no new recurrence of strokelike symptoms have emerged. She does appear to be reasonably managed with secondary stroke prevention measures with the exception of needing better blood sugar control. She is now anticipating a foot surgery and is eager to have thatcompleted. The patient is reasonably optimized for the planned surgery Stop antiplatelet medication 7 days prior to the procedure Restart antiplatelet medication as soon as possible post-operatively, usually the next day Angeles Ford M.D. [facility] This note was partially written using voice recognition software and is subject to errors includingthose of syntax and sound-alike substitutions which may evade proofreading. In such instances, original meaning may be extrapolated by contextual derivation. documented in this encounter* Nick Newton MD - 12/11/2019 11:04 AM EDT MRI reviewed and discussed w/ Dr. Taylor. No plans for surgical intervention. Rectal tone strong, intact. Would recommend leal catheter removal unless medical reason necessitating for continued leal cateter. If pain improved/controlled, OK to discharge from Orthopaedic Spine Surgery standpoint on Medrol dos-eneida. Will give decadron injection x1 prior to discharge. Discussed w/ ED provided. Follow up with Dr. Taylor in office w/in in the next week. Discharge instructions and follow up information provided. Please page [phone] or on-call resident w/ questions or concerns. Nick Newton MD PGY-3, Orthopaedic Surgery [phone] 12/11/2019 .11:06 AM documented in this encounter* Angeles Ford II, MD - 04/15/2020 3:04 PM EST NEUROLOGY PROGRESS NOTE CHIEF COMPLAINT Delmy Buchanan is seen today for Chief Complaint Patient presents with Follow-up Stroke, hemiplegic migraine, seizures HPI Delmy Buchanan is here today for a follow up visit regarding headaches and seizures as well as stroke. At her last visit, she was planning to have a foot surgery but ultimately did not have it.She did injure her right shoulder and is anticipating surgery there for a labral tear. She subsequently is not working as much. 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 As for headaches, she had one in December but typically is doing well with headache control. She continues to take topiramate. She is taking 50 mg in the morning and 100 mg at night. The memory problem can still be problematic for her. There have been no seizures for quite some time now. Her neurological review of systems is otherwise negative. Blood sugars at home are in the mid 100s typically. REVIEW OF SYSTEMS Review of Systems Constitutional: Positive for appetite change and diaphoresis. Negative for activity change, chills,fatigue, fever and unexpected weight change. HENT: Positive for trouble swallowing. Negative for congestion, dental problem, ear pain, facial swelling, hearing loss, tinnitus and voice change. Eyes: Negative for photophobia, pain and visual disturbance. Respiratory: Negative for cough, shortness of breath and wheezing. Gastrointestinal: Negative for nausea and vomiting. Musculoskeletal: Negative for arthralgias, back pain, gait problem, joint swelling, myalgias and neck pain. Neurological: Negative for dizziness, tremors, seizures, syncope, speech difficulty, weakness, light-headedness, numbness and headaches. Psychiatric/Behavioral: Negative for agitation, confusion, decreased concentration, dysphoric mood,hallucinations, sleep disturbance and suicidal ideas. The patient is not nervous/anxious. MEDICATIONS Current Outpatient Medications Medication Sig Dispense Refill aspirin 81 mg chewable tablet Chew and Swallow 81 mg daily . blood pressure monitor Kit Take BP daily and record . 1 each 0 clopidogreL (PLAVIX) 75 mg tablet Take 1 (one) tablet (75 mg total) by mouth daily . 90 tablet 3 co-enzyme Q-10 30 mg capsule Take 100 mg by mouth 2 (two) times a day . ezetimibe (ZETIA) 10 mg tablet Take 10 mg by mouth daily . gabapentin (NEURONTIN) 300 MG capsule Take 300 mg by mouth every 8 (eight) hours . JARDIANCE 25 mg Tab Take 1 tablet by mouth every morning. 0 ondansetron (ZOFRAN-ODT) 4 MG disintegrating tablet Dissolve 4 mg on top of tongue every 4 (four) hours as needed for nausea . pravastatin (PRAVACHOL) 20 MG tablet Take 20 mg by mouth nightly . REPaglinide (PRANDIN) 2 MG tablet Take 1 tablet by mouth Daily With Food . thyroid (ARMOUR) 30 mg tablet Take 30 mg by mouth every morning . topiramate (TOPAMAX) 100 MG tablet Take 50 mg (1/2 tab) in a.m, and 100 mg (1 tab) in p.m . 135 tablet 3 Vascepa 1 gram cap Take 2 capsules by mouth 2 (two) times a day . oxyCODONE-acetaminophen (PERCOCET) 5-325 mg per tablet Take 1 tablet by mouth every 6 (six) hours as needed for pain . UNABLE TO FIND Relamorelin 10 units 2 x's a day . No current facility-administered medications for this visit. ALLERGIES Nortriptyline, Metformin, Sulfa (sulfonamide antibiotics), Ct: iodinated contrast- oral and iv dye,Morphine, and Iodine NEUROLOGICAL EXAMINATION Vital Signs: BP 115/79 Pulse 84 Ht 5' 6 Wt 103 kg (227 lb) LMP 07/07/2015 (Exact Date) BMI 36.64 kg/m Body mass index is 36.64 kg/m . General: The patient is in no distress, alert and cooperative with the examination. Mental Status: Language function is fluent without aphasia or dysarthria. Attention and concentration are adequate. The patient is oriented x 3. Recent and remote memory are preserved. The patient s general fund of information is normal. Cranial nerves: Pupils are equal and reactive to light and accommodation. Extraocular movements arefull in all directions. No nystagmus is appreciated. The face appears symmetric and is without weakness. No auditory deficit is detected. The tongue protrudes in the midline and the palate elevates sy mmetrically. Motor: There is 5 MRC strength in all muscle groups except 4+ MRC bilateral hip flexion. There is normal tone and bulk in all muscles. No tremor of the extremities is noted nor are there any other abnormal movements. Coordination: Rapid alternating movements are normal. Gait: The patient has a normal based gait with appropriate arm swing. Tandem walking is difficult for her. 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 Decrease topiramate to 50 mg twice per day Call in 3-4 weeks to report your progress Acute ischemic stroke (HCC) There are no new stroke symptoms to findings. Continue clopidogrel, ASA, pravastatin, vascepa Seizures (HCC) No recent seizures or seizure-like events to report. Angeles Ford M.D. [facility] This note was partially written using voice recognition software and is subject to errors includingthose of syntax and sound-alike substitutions which may evade proofreading. In such instances, original meaning may be extrapolated by contextual derivation. documented in this encounter* John Knapp MD - 05/09/2020 10:14 AM EST General Neurology Follow-up Date of Service: 05/09/2020 Chief complaint: LOC, RUE weakness Subjective: No acute overnight events. RUE weakness resolved. Medications: Scheduled Meds: insulin lispro 0-6 Units Subcutaneous TID WC gabapentin 600 mg Oral TID aspirin 81 mg Oral Daily atorvastatin 40 mg Oral Nightly sodium chloride flush 10 mL Intravenous 2 times per day enoxaparin 40 mg Subcutaneous Daily topiramate 50 mg Oral BID Continuous Infusions: dextrose PRN Meds:sodium chloride flush, promethazine OR ondansetron, polyethylene glycol, acetaminophenOR acetaminophen, LORazepam, bdohldllyb-bqvwoigurgwkj-ltanvjsm, glucose, dextrose, glucagon (rDNA), dextrose Allergies Allergen Reactions Iodides Iodine Other reaction(s): GI Upset Metformin Diarrhea XR and plain Morphine Nortriptyline sugar drops and heart issues Sulfa Antibiotics Hives Gadolinium Derivatives Itching and Nausea And Vomiting Objective: Exam: BP 119/80 Pulse 71 Temp 98.5 F (36.9 C) (Temporal) Resp 16 SpO2 98% Neuro: General: awake and alert Cranial nerves: I: smell Not tested II: visual cope Full to confrontation II: pupils Equal, round, reactive to light III,VII: ptosis None III,IV,: extraocular muscles Full ROM V: mastication Normal V: facial light touch sensation Normal V,VII: corneal reflex Present VII: facial muscle function - upper Normal VII: facial muscle function - lower Normal VIII: hearing Normal IX: soft palate elevation Normal IX,X: gag reflex Present XI: trapezius strength 5/5 XI: sternocleidomastoid strength 5/5 XI: neck flexion strength 5/5 XII: tongue strength Normal Motor exam: 5/5 througout Tone: WNL Sensation was minimally decreased to LT on RUE>RLE Deep tendon reflexes were 2+ bilaterally Plantar responses were flexor bilaterally Cerebellar exam noted no tremors noted Gait:WNL Data: LABS: Recent Results (from the past 24 hour(s)) POCT Glucose Collection Time: 05/08/20 12:41 PM Result Value Ref Range POC Glucose 126 (H) 70 - 100 mg/dL POCT Glucose Collection Time: 05/08/20 4:55 PM Result Value Ref Range POC Glucose 307 (H) 70 - 100 mg/dL POCT Glucose Collection Time: 05/08/20 8:37 PM Result Value Ref Range POC Glucose 263 (H) 70 - 100 mg/dL CBC Auto Differential Collection Time: 05/09/20 4:19 AM Result Value Ref Range WBC 4.5 3.6 - 10.7 10*3/uL RBC 4.66 3.80 - 5.20 10*6/uL Hemoglobin 12.7 11.7 - 16.0 g/dL Hematocrit 38.6 35.0 - 47.0 % MCV 82.9 79.0 - 98.0 fL MCH 27.2 26.0 - 34.0 pg MCHC 32.8 32.0 - 36.0 % RDW 15.7 (H) 11.5 - 14.5 % Platelets 181 140 - 440 10*3/uL MPV 8.4 7.4 - 10.4 fL Granulocytes % 42.9 40.0 - 80.0 % Lymphocyte % 41.0 (H) 20.0 - 40.0 % Monocytes 6.4 2.0 - 10.0 % Eosinophils 8.7 (H) 1.0 - 6.0 % Basophils 1.0 0.0 - 2.0 % Absolute Neut # 1.9 1.8 - 7.0 10*3/uL Absolute Lymph # 1.8 1.0 - 4.3 10*3/uL Absolute Wilkinson # 0.3 0.0 - 0.8 10*3/uL Absolute Eos # 0.4 0.0 - 0.5 10*3/uL Absolute Baso # 0.0 0.0 - 0.2 10*3/uL POCT Glucose Collection Time: 05/09/20 8:00 AM Result Value Ref Range POC Glucose 230 (H) 70 - 100 mg/dL RADIOLOGY: MRI Brain w/o contrast 05/08/20 1. Limited examination. No acute intracranial findings. 2. Partial agenesis of corpus callosum, unchanged. MRA Head w/o contrast 05/08/20 1. No intracranial arterial occlusion or significant stenosis. Routine EEG 05/08/20 Normal Neuroimaging and labs personally reviewed Assessment/Plan: 39 yo female with history of seizure, migraines, left hemispheric AVM, fibromyalgia, DM, gastroparesis presents with unresponsive episode, FROST, and RUE weakness. FROST -Suspect migraine/complex migraine -MRI at OSH negative for acute abn -Limited MRI/A here, but negative for acute abn or significant vascular abn -MRV ordered, but patient could not tolerate -Continue TPX/GBP. Can use tylenol or toradol for breakthrough pain if needed RUE weakness -Complex migraine vs breakthrough seizure vs nonepileptic event/conversion -MRI x 2 negative for stroke -Recent MRI C spine negative for significant stenosis -Spot EEG negative for seizure -Continue home TPX -Can increase GBP from 1500mg daily to 1800mg daily (600mg TID). This could help with migraines, offer increased seizure protection, and help with anxiety/insomnia -Maintain sz precautions -Consider outpatient psychiatry follow up as well History of AVM -MRA with no evidence of AVM -Continue follow up with outpt neuro History of seizures -Prolonged LOC episodes do not classically sound epileptic in nature -Would consider EMU eval or prolonged EEG monitoring in the future -Will defer further management to her treating neurologist -Maintain sz precautions No further neurologic workup required at this time. Will sign off, please call if questions. * ShayneNettie figueroaian - 05/09/2020 9:07 AM EST Physical Therapy Facility/Department: [facility] Initial Assessment NAME: Delmy Buchanan : 1980 Date of Service: 05/09/2020 *N95 mask, goggles and gloves worn by this SPT throughout pt encounter* Discharge Recommendations: Home with assist PRN Assessment Body structures, Functions, Activity limitations: Decreased balance;Decreased functional mobility ;Decreased high-level IADLs Assessment: pt with above defecits. pt currently requiring supervision for transfers, gait, and stairs. pt had wobbly gait and one isolated LOB while turning 360 degrees requiring assistance for correction. pt was able to navigate stiars and objects during ambulaiton without LOB. pt reported not feeling good today and that she is typically steadier during gait. pt lives with a friend that would be able to assist her occasionally when not at work. pt would benefit from continued skilled therapy to improve balance and decrease risk of falls. Rec home with assist PRN. Treatment Diagnosis: seziure, blurry visoin, R arm numbness Prognosis: Good Decision Making: Low Complexity PT Education: Goals;PT Role;Plan of Care;General Safety REQUIRES PT FOLLOW UP: Yes Activity Tolerance Activity Tolerance: Patient Tolerated treatment well Patient Diagnosis(es): There were no encounter diagnoses. has a past medical history of Arthritis, DM2 (diabetes mellitus, type 2) (HCC), Gastroparesis, Seizure (HCC), and TIA (transient ischemic attack). has a past surgical history that includes Cholecystectomy; Hysterectomy; and Ankle surgery (Left). Restrictions Restrictions/Precautions Restrictions/Precautions: Up as Tolerated, Seizure Vision/Hearing Vision: Impaired Vision Exceptions: Wears glasses at all times Hearing: Within functional limits Subjective General Chart Reviewed: Yes Patient assessed for rehabilitation services?: Yes Additional Pertinent Hx: PMH- TIA, DM2, seizure Diagnosis: Seizure, blurry vision, R arm numbness Subjective Subjective: pt lying supine in bed, agreeable to therapy Orientation Orientation Overall Orientation Status: Within Normal Limits Social/Functional History Social/Functional History Lives With: Friend(s) Type of Home: Apartment Home Access: Stairs to enter with rails Entrance Stairs - Number of Steps: 12 Receives Help From: Family ADL Assistance: Independent Homemaking Assistance: Independent Homemaking Responsibilities: Yes Ambulation Assistance: Independent Transfer Assistance: Independent Active Scientific Software Developer: Yes 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, 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 Cognition Cognition Overall Cognitive Status: WFL Objective Observation/Palpation Posture: Good AROM RLE (degrees) RLE AROM: WNL AROM LLE (degrees) LLE AROM : WNL Strength RLE Strength RLE: WFL Comment: 4+/5 Strength LLE Strength LLE: WFL Comment: 4+/5 Tone RLE RLE Tone: Normotonic Tone LLE LLE Tone: Normotonic Motor Control Gross Motor?: WNL Sensation Overall Sensation Status: WNL Bed mobility Supine to Sit: Modified independent Sit to Supine: Modified independent Scooting: Modified independent Transfers Sit to Stand: Supervision Stand to sit: Supervision Comment: x 2 trials Ambulation Ambulation?: Yes Ambulation 1 Surface: level tile Device: No Device Assistance: Supervision Quality of Gait: wobbly gait, pt able to navigate obsticles in enviornment, no LOB Distance: 120' + 40' Stairs/Curb Stairs?: Yes Stairs # Steps : 8 Rails: Left ascending Device: No Device Assistance: Supervision Comment: pt had LOB while turning around at bottom of stairs that required assistance to correct Balance Posture: Good Sitting - Dynamic: Good Standing - Static: Fair;+ Standing - Dynamic: Fair;+ Comments: pt had one isolated LOB while turning 360 degrees at the bottom of the stairs that required therapist assistance to correct. Plan Plan Times per week: 5 Plan weeks: 2 Current Treatment Recommendations: Balance Training, IADL Training, Stair training, Gait Training, Safety Education & Training Safety Devices Type of devices: All fall risk precautions in place, Left in bed, Call light within reach, Gait belt Goals Short term goals Time Frame for Short term goals: 2 weeks Short term goal 1: mod indep Transfers Short term goal 2: amb 300' indep Short term goal 3: navigate 12 stairs mod indep with use of hand rail Patient Goals Patient goals : Return to home Therapy Time Individual Concurrent Group Co-treatment Time In 0823 Time Out 0842 Minutes 19 Goals and/or treatment plan was established in collaboration with patient/family/other representatives. Patient s Physical Therapy Plan of Care supervision is transferred to [facility] Physical Therapist. * Fam García, RAVEN - 05/08/2020 8:34 AM EST Called to see pt for c/o chest pain. Pt states pain is mild pressure over sternum. Area mildy tender to palpation and pain increases with coughing. VSS. NSR. EKG being completed. house fellow paged. documented in this encounter* Eladia Peña CNP - 01/25/2019 3:30 PM EDT NEUROLOGY Outpatient FOLLOW-UP [facility] [phone] (office) / [phone] (fax) Patient Name: Delmy Buchanan : 1980 MR #: [id number] Other Physicians: Charis Espinal MD (Primary Care Physician) Neurologist: Angeles Ford MD ASSESSMENT/PLAN: Ms. Buchanan is a 38 y.o. female who has a past medical history of AVM (arteriovenous malformation) brain, Diabetes mellitus (HCC), Disease of thyroid gland, Fibromyalgia, Headache, Seizures (HCC),and Stroke (HCC). She presents today for a follow up appointment for bilateral lower extremity weakness. 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 -Continue Topamax 50 mg in a.m. and 100 mg in p.m. -Fioricet at onset of headache. No more than 2 times per week. -Would avoid triptan's given patient's history of AVM. Relevant Medications htrquxgkpa-ofbpnxgbnmvsk-qrzblpmx (ESGIC) 50-325-40 mg topiramate (TOPAMAX) 100 MG tablet Other Seizures (HCC) No further seizures. -Continue Topamax. Chief complaint: Follow-up (pt says f/u for seizures and migraines - no seizures to report - Pt says in the past 4 months she has had six migraines. ) Interval History: Patient was last seen on 07/19/2018. Since that appointment there have been no further seizures. Herlast seizure was in 2012 or 2013. She continues to take Topamax 50 mg in the morning and 100 mg in the evening. She reports the occasional side effect of issues with concentration and memory. Headaches are well controlled. She estimates 1-2 a month. She would like something to take at the onset of her headaches. She was previously prescribed a narcotic. Triptans should be avoided given her history of an AVM. Mood is good. No suicidal ideations. She denies any new neurological issues or concerns. LABS and STUDIES: Lab Results Component Value Date WBC 5.83 07/13/2018 HGB 13.6 07/13/2018 HCT 41.9 07/13/2018 MCV 84.1 07/13/2018 PLT 242 07/13/2018 Chemistry Component Value Date/Time NA 139 07/13/2018 0418 NA 140 01/15/2014 0404 K 3.9 07/13/2018 0418 K 3.6 01/15/2014 0404 CL 107 07/13/2018 0418 CL 107 01/15/2014 0404 BUN 16 07/13/2018 0418 BUN 16 02/24/2017 0252 BUN 16 01/15/2014 0404 CREATININE 0.72 07/13/2018 0418 CREATININE 0.73 02/24/2017 0252 CREATININE 0.73 01/15/2014 0404 Component Value Date/Time CALCIUM 8.8 07/13/2018 0418 CALCIUM 8.3 (L) 01/14/2014 1326 ALKPHOS 80 07/11/2018 1933 AST 14 07/11/2018 1933 AST 16 02/24/2017 0252 ALT 19 07/11/2018 193 ALT 50 02/24/2017251 BILITOT 0.3 07/11/20181932 Lab Results Component Value Date HGBA1C 6.1 (H) 02/18/2016 Lab Results Component Value Date CHOL 207 (H) 02/19/2016 CHOL 179 07/14/2015 CHOL 222 (H) 01/15/2014 Lab Results Component Value Date HDL 30 (L) 02/19/2016 HDL 32 (L) 07/14/2015 HDL 31 (L) 01/15/2014 Lab Results Component Value Date LDLCALC 120 02/19/2016 LDLCALC 115 07/14/2015 LDLCALC 119 01/15/2014 Lab Results Component Value Date TRIG 284 (H) 02/19/2016 TRIG 162 (H) 07/14/2015 TRIG 362 (H) 01/15/2014 Lab Results Component Value Date CHOLHDL 6.9 02/19/2016 CHOLHDL 5.6 07/14/2015 CHOLHDL 7 01/15/2014 @RESULFAST(ALT,AST,TSH,B12,FOLATE,CPK,NH3)@ Results for orders placed or performed during the hospital encounter of 07/11/18 CT Head Or Brain Without Contrast Narrative EXAMINATION: CT OF THE HEAD WITHOUT CONTRAST 07/11/2018 TECHNIQUE: CT of the head was performed without the administration of intravenous contrast. Dose modulation, iterative reconstruction, and/or weight based adjustment of the mA/kV was utilized to reduce the radiation dose to as low as reasonably achievable. COMPARISON: MRI brain from 02/18/2016. HISTORY: ORDERING SYSTEM PROVIDED HISTORY: lower extremity weakness; TECHNOLOGIST PROVIDED HISTORY: Reason for Exam: lower extremity weakness Illness/Other Acuity: Acute Type of Encounter: Initial Additional signs and symptoms: lower extremity weakness ORDERING SYSTEM PROVIDED DIAGNOSIS CODES: R29.898 Weakness of lower extremity, unspecified laterality FINDINGS: BRAIN/VENTRICLES: There is no acute hemorrhage, herniation, or hydrocephalus. There is no acute territorial infarct. Only the genu of the corpus callosum is formed. The other segments have not formed. ORBITS: The visualized portion of the orbits demonstrate no acute abnormality. SINUSES: The visualized paranasal sinuses and mastoid air cells demonstrate no acute abnormality. SOFT TISSUES/SKULL: No acute abnormality of the visualized skull or soft tissues. Impression No acute intracranial abnormality. Partial agenesis of the corpus callosum. /[facility] Workstation ID: [id number] Results for orders placed or performed during the hospital encounter of 02/18/16 MR Brain Without Contrast Narrative EXAMINATION: MRI OF THE BRAIN WITHOUT CONTRAST 02/18/2016: TECHNIQUE: Multiplanar multisequence MRI of the brain was performed without the administration of intravenous contrast. COMPARISON: 07/14/2015. HISTORY: ORDERING SYSTEM PROVIDED HISTORY: headache, RUE weakness; TECHNOLOGIST PROVIDED HISTORY: Reason for Exam: pt has right sided weakness and headaches. no injury. Illness/Other Acuity: Acute Encounter Type: Initial Additional signs and symptoms: none Acute left retro-orbital headache with right arm weakness. Initial evaluation. FINDINGS: INTRACRANIAL STRUCTURES/VENTRICLES: There is no acute infarct. 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 There is a parallel orientation of the lateral ventricles. No abnormal signal is seen within the brain. No evidence of hydrocephalus. No mass effect or midline shift. Normal signal voids are seen within the major intracranial vessels. ORBITS: The visualized portion of the orbits demonstrate no acute abnormality. SINUSES: The visualized paranasal sinuses and mastoid air cells are well aerated. BONES/SOFT TISSUES: The bone marrow signal intensity appears normal. The craniocervical junction isnormal in appearance. Impression 1. No acute intracranial abnormality. No acute infarct. 2. 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 Workstation ID: [id number] Results for orders placed or performed during the hospital encounter of 07/13/15 MRA Brain Without Contrast Narrative EXAMINATION: MRA OF THE HEAD WITHOUT CONTRAST; MRA OF THE NECK WITH AND WITHOUT CONTRAST 07/14/2015: TECHNIQUE: MRA of the head was performed utilizing [id number]-tm-plftld imaging with MIP images. No intravenous contrast was administered. COMPARISON: None. HISTORY: R sided arm weakness, chronic, initial exam FINDINGS: MRA head: ANTERIOR CIRCULATION: The internal carotid arteries are normal in course and caliber without focal stenosis. The anterior cerebral and middle cerebral arteries demonstrate no focal stenosis. POSTERIOR CIRCULATION: There is origin of the right posterior cerebral artery with hypoplastic P1 segment. The left posterior communicating artery is hypoplastic. The posterior cerebral arteries demonstrate no focal stenosis. There is right dominance of the vertebral arteries with hypoplasticleft intracranial vertebral artery. The right vertebral and basilar arteries appear unremarkable. ANEURYSM: No intracranial aneurysm is seen. MRA neck: AORTIC ARCH/GREAT VESSELS: There is a normal branch pattern of the aortic arch. No significant stenosis is seen of the innominate artery or subclavian arteries. CAROTID ARTERIES: The common carotid arteries are normal in appearance without evidence of a flow limiting stenosis. The internal carotid arteries are normal in appearance without evidence of a flow limiting stenosis by NASCET criteria. VERTEBRAL ARTERIES: The right vertebral artery arises from the right subclavian artery. The left vertebral artery shares the common origin with the left vertebral artery. The vertebral arteries both arise from the subclavian arteries and are normal in caliber without evidence of flow limiting stenosis. Impression No acute abnormality of the CTA of the head and neck. Workstation ID: [id number] I personally reviewed --- (prior notes, hospital records, laboratory results, and diagnostic studies). The following portions of the patient's history were reviewed and updated as appropriate: allergies, past family history, past medical history, past social history, past surgical history and problem list. Current Medications I personally reviewed and reconciled the medications. Current Outpatient Medications Medication Sig Dispense Refill gabapentin (NEURONTIN) 300 MG capsule Take 300 mg by mouth every 8 (eight) hours . JARDIANCE 25 mg Tab Take 1 tablet by mouth every morning. 0 ondansetron (ZOFRAN-ODT) 4 MG disintegrating tablet Dissolve 4 mg on top of tongue every 4 (four) hours as needed for nausea . thyroid (ARMOUR) 30 mg tablet Take 30 mg by mouth every morning . topiramate (TOPAMAX) 100 MG tablet Take 50 mg (1/2 tab) in a.m, and 100 mg (1 tab) in p.m . 60 tablet 11 UNABLE TO FIND Relamorelin 10 units 2 x's a day . acfsnmkpxm-slqxlepbovszx-zppsetzg (ESGIC) 50-325-40 mg Take 1 (one) tablet by mouth daily as neededfor pain or headaches (at onset of headache. No more than 2x's per week.) . 10 tablet 0 No current facility-administered medications for this visit. ALLERGIES Allergies Allergen Reactions Nortriptyline Other reaction(s): Other: See Comments sugar drops and heart issues Other reaction(s): Other (See Comments) sugar drops and heart issues Other reaction(s): Other, Other: See Comments sugar drops and heart issues sugar drops and heart issues Metformin Diarrhea XR and plain XR and plain XR and plain Sulfa (Sulfonamide Antibiotics) Hives Other reaction(s): Hives Ct: Iodinated Contrast- Oral And Iv Dye GI Intolerance Other reaction(s): GI Upset Other reaction(s): GI Upset Morphine Other reaction(s): Other: See Comments Muscle contractions all over Other reaction(s): Itching, Other: See Comments Muscle contractions all over Iodine Other reaction(s): GI Upset Other reaction(s): Rash Past Medical History: Diagnosis Date AVM (arteriovenous malformation) brain Diabetes mellitus (HCC) Disease of thyroid gland Fibromyalgia Headache Seizures (HCC) Stroke (HCC) tia and cva Past Surgical History: Procedure Laterality Date SECTION CHOLECYSTECTOMY fallopian tube removal HYSTERECTOMY left post tibial tendon repair right post tibial tendon repair WISDOM TOOTH EXTRACTION Social History Socioeconomic History Marital status: Spouse name: Not on file Number of children: Not on file Years of education: Not on file Highest education level: Not on file Occupational History Not on file Social Needs Financial resource strain: Not on file Food insecurity: Worry: Not on file Inability: Not on file Transportation needs: Medical: Not on file Non-medical: Not on file Tobacco Use Smoking status: Never Smoker Substance and Sexual Activity Alcohol use: Yes Drug use: No Sexual activity: Not on file Lifestyle Physical activity: Days per week: Not on file Minutes per session: Not on file Stress: Not on file Relationships Social connections: Talks on phone: Not on file Gets together: Not on file Attends yarsani service: Not on file Active member of club or organization: Not on file Attends meetings of clubs or organizations: Not on file Relationship status: Not on file Other Topics Concern Not on file Social History Narrative Not on file ROS: Review of Systems Constitutional: Negative for activity change, appetite change, chills, diaphoresis, fatigue, fever and unexpected weight change. HENT: Negative for congestion, dental problem, ear pain, facial swelling, hearing loss, tinnitus, trouble swallowing and voice change. Eyes: Negative for photophobia, pain and visual disturbance. Respiratory: Negative for cough, shortness of breath and wheezing. Cardiovascular: Negative for chest pain and palpitations. Gastrointestinal: Negative for abdominal pain, constipation, diarrhea, nausea and vomiting. Endocrine: Negative for cold intolerance, heat intolerance and polydipsia. Genitourinary: Negative for enuresis, frequency and urgency. Musculoskeletal: Positive for neck pain. Negative for arthralgias, back pain, gait problem, joint swelling and myalgias. Neurological: Positive for weakness and numbness. Negative for dizziness, tremors, seizures, syncope, speech difficulty and headaches. Psychiatric/Behavioral: Positive for decreased concentration and sleep disturbance. Negative for agitation, confusion, dysphoric mood, hallucinations and suicidal ideas. The patient is not nervous/anxious. Physical Examination Vital Signs: BP 126/85 Pulse 97 Wt 97.6 kg (215 lb 3.2 oz) LMP 07/07/2015 (Exact Date) BMI 34.73 kg/m Body mass index is 34.73 kg/m . General: The patient is in no distress, alert and cooperative with the examination. Mental Status: Language function is fluent without aphasia or dysarthria. Attention and concentration are adequate. The patient is oriented x3. Recent and remote memory are preserved. The patient s general fund of information is normal. Cranial nerves: Pupils are equal and reactive to light and accommodation. Extraocular movements arefull in all directions. No nystagmus is appreciated. Facial sensation is preserved bilaterally. Theface appears symmetric and is without weakness. No auditory deficit is detected. Motor: Moves all 4 extremities equally well. There is normal tone and bulk in all muscles. No tremor of the extremities is noted nor are there any other abnormal movements. Coordination: Finger to nose and rapid alternating movements are normal. Gait: The patient has a normal based gait with appropriate arm swing. This note was partially written using voice recognition software and is subject to errors includingthose of syntax and sound-alike substitutions which may evade proofreading. In such instances, original meaning may be extrapolated by contextual derivation. Eladia Peña CNP 01/25/2019 3:54 PM documented in this encounter* Og Mahan MD - 08/04/2018 2:37 PM EDT Procedures [facility] [address] [place] [address] Nerve Conduction Study & Electromyography Report Full Name: Delmy Buchanan Age/Gender: 37 Years 10 Months/Female Date of : 1980 Height/ Weight: / Visit Date: 08/04/2018 12:08 Blood Thinners: no Referring Physician: Eladia Peña CNP Pacemaker: no Examining Physician: Savanna Mahan Patient History: The patient has a 10 year h/o DM who presents with a 6 month h/o progressive left shoulder pain. Examination: No muscular atrophy noted in the LUE Sensory NCS Nerve / Sites Rec. Site Pk Lat Pk Amp Ref. Raphael Ref. Dist. ms V V m/s m/s cm L Median - Dig II Dig II Wrist 2.45 20.6 ?10.0 60.6 ?50.0 12 Mid-palm Wrist 1.88 43.6 56.9 8 L Ulnar - Dig V Dig V Wrist 2.14 8.3 ?10.0 66.2 ?50.0 10 L Radial - Snuff Mid-forearm Snuffbox 2.34 27.3 ?10.0 64.0 ?50.0 12 Motor NCS Nerve / Sites Rec. Site Lat Ref. Amp Ref. Raphael. Ref. Dist. ms ms mV mV m/s m/s cm L Median - APB Wrist APB 3.07 ?4.20 8.1 ?4.0 ?50.0 7 B.Elbow APB 7.40 7.7 61.3 ?50.0 26.5 L Ulnar - ADM Wrist ADM 2.19 ?3.40 9.4 ?4.0 7 B.Elbow ADM 5.89 7.8 52.7 19.5 A.Elbow ADM 7.76 7.8 50.7 ?49.0 9.5 EMG Summary Table Spontaneous MUAP Recruitment Muscle Nerve Roots IA Fib PSW Fasc Other Amp Dur. Effort Pattern Firing Rate L. Deltoid Axillary C5-C6 N None None None None N N Good N N L. Biceps brachii Musculocut C5-C6 N None None None None N N Good N N L. Triceps brachii Radial C6-C8 N None None None None N N Good N N L. First dorsal interosseous Ulnar C8-T1 N None None None None N N Good N N L. Abductor pollicis brevis Median C8-T1 N None None None None N N Good N N L. C8 paraspinal Spinal C8- N None None None None N N Good N N L. C7 paraspinal Spinal C7- N None None None None N N Good N N L. C6 paraspinal Spinal C6- N None None None None N N Good N N L. C5 paraspinal Spinal C5- N None None None None N N Good N N Summary The motor conduction test was normal in all 2 of the tested nerves: L Median - APB, L Ulnar - ADM. The sensory conduction test was performed on 3 nerve(s). The results were normal in 2 nerve(s): L Median - Dig II, L Radial - Snuff. Results outside the specified normal range were found in 1 nerve(s), as follows: ? In the L Ulnar - Dig V study o the peak amplitude result was reduced for Dig V stimulation The needle EMG study was normal in all 9 tested muscles: L. Deltoid, L. Biceps brachii, L. Triceps brachii, L. First dorsal interosseous, L. Abductor pollicis brevis, L. C8 paraspinal, L. C7 paraspinal, L. C6 paraspinal, L. C5 paraspinal. Conclusion: This is a slightly abnormal study. 1. The reduced left ulnar sensory amplitude, in light of an otherwise normal electrodiagnostic study, is of uncertain etiology or significance. A focal ulnar neuropathy of uncertain localization v. asensory polyneuropathy cannot be excluded. A follow-up EMG/NCV of the bilateral lower extremities or contralateral arm may provide diagnostic clarification. 2. There is no current electrodiagnostic evidence of a left cervical spine radiculopathy, entrapment neuropathy, or myopathy. Rotator cuff pathology cannot be ruled out. Og Mahan MD, PhD Attending, Neurology in this encounter* Vickie Red MA - 08/16/2020 10:56 AM EDT Left message on voicemail to remind patient to log on 15 minutes prior to appt on my chart for video visit and gave the IT phone number for any technical difficulties. Told patient if they are not onby 15 minutes after the appt time they will need to call and reschedule. documented in this encounter Instructions * Patient Instructions* Angeles Ford II, MD - 04/15/2020 3:26 PM EST Decrease topiramate to 50 mg twice per day Call in 3-4 weeks to report your progress documented in this encounter Additional Source Comments Assessment & Plan Note - Eladia Peña CNP - 04/07/2017 1:29 PM ESTAssessment & Plan Note - Eladia Peña CNP - 04/07/2017 1:26 PM EST Miscellaneous Notes (unrecog nized section and content) Associated Problem(s): Seizures (HCC) Well-controlled. -No seizures in over 3 years. -Continue Topamax. 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 -Call office in 1 month to report status -Patient allergic to triptan's. -As needed Tylenol and ibuprofen. -Patient did request a prescription for Percocet. However I would rather increase the headache preventative and see if this helps minimize the frequency of her headaches. Therefore I will not be providing a prescription for Percocet at this time. I encouraged her to use something [id number] or tramadol that her PCP prescribes her intermittent head pain.in this encounter Associated Problem(s): Right arm weakness Patient is a 37-year-old female with a history of hemiplegic migraine and seizures who presents today with complaints of episodic right arm weakness and paresthesias for the past month. Symptoms are not associated with headache or neck pain. No focal neurological deficits on examination. Recently had workup completed at [facility], which included an MRI of brain and C-spine. I am unable to review these results. We will request those records today. Will hold off on ordering any additional imaging at this time. -Request medical records from recent ER visit.in this encounter Overview: She was hospitalized at [facility] in [place] in 02/24 and states there she was given the dx of GBS. However looking at the discharge summary from there that is scanned into [facility], all of her workup was normal including LP and EMG. She was even seen by NSG for her minimal DJD of the spine. She got better quickly after the workup and was discharged home Today she feels she is not doing as well. She tells me that no other doctor has come today and she does not know what her discharge disposition is. Reviewed PT and OT notes. MRI of the Thoracic and Lumbar spine negative except for mild DJD. LP normal. Exam: WD/WN white female laying in bed in [facility]. NO signs of agnosia or aphasia or apraxia. Mental Status: Language function is fluent. No dysarthric speech is noted. Recent and remote memory are preserved. Attention and concentration are adequate. Affect is euthymic. There is a normal fund of general information. Cranial nerves 2-12: Pupils are equal and reactive to light. No nystagmus is seen. Extra-ocular movements are intact. No facial weakness is seen. Auditory acuity is normal. The palate elevates normally. The tongue protrudes in the midline. Head turning and shoulder shrug are normal. Motor: There is 5 MRC strength in all muscle groups in the upper extremity and in the lower extremity 4/5 on the left and 4/5 on the right. Normal motor tone and muscle bulk are seen. There is no tremor or other abnormal movement. Gait The patient is able to sit up and swing her legs today and she is able to stand up on her own, walks with walker slowly and drags her right foot. Not tested today. PACU Vitals 07/14/18 1837 BP: 108/73 Pulse: 63 Resp: 16 Temp: 7.7 SpO2: 97 % on RA Associated Problem(s): Bilateral leg weakness Normal CSF, GBS ruled out and her symptoms are more likely fibromyalgia mimics. This is the second time she has has a similar attack and both times CSF normal, imaging normal, EMG normal and she recovers as quickly as it comes on. She may have a psych overlay but is on medications. She has diabetes and she has hypoactive DTRs all over. If [facility] wants to consider her for a few days there in inpatient I think it will help. She lives alone. Would encourage her to be in an exercise program after [facility], closer to home. Eventual follow up with Dr. Ford. Ok to discharge from neuro standpoint. Patient has come in unable to feel or move BLE. This nurse has bed cuevas, wipes, disposable pads and call light in reach for this patient to be properly cared for. This nurse also set up seizure precautions such as lowered bed, suction, ozygen and padded rails for the patients safety. This nurse also offers to turn the patient q2h. This patient verbalizes understanding of these things and will call when need to use restroom or whenever she needs assistance. Patient oriented to Observation Unit: Yes Patient oriented to room: Yes Plan of care reviewed with patient: yes Extended Emergency Contact Information Primary Emergency Contact: Maday Alberts [address]: [address] [place] Relation: Mother Primary Care Physician: Charis Espinal MD Preferred Pharmacy: [facility] in [place] Plan for discharge reviewed: Yes How will patient get home: Family Reviewed call light process: Yes [facility] completed: Yes in this encounter Associated Problem(s): Essential hypertension The patient was advised to check her blood pressure at home daily as this has been 1 of her stroke risk factors. A prescription was sent for a blood pressure monitor kit. Associated Problem(s): Seizures (HCC) There have been no recent seizures. 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 Associated Problem(s): Acute ischemic stroke (HCC) The patient reports that she had an acute ischemic stroke earlier this month and is now recovering in physical therapy. I do not have any of those records so we will attempt to get those when able. We did spend time discussing secondary stroke prevention. documented in this encounter Associated Problem(s): Acute ischemic stroke (HCC) The patient is a reasonably stable and no new recurrence of strokelike symptoms have emerged. She does appear to be reasonably managed with secondary stroke prevention measures with the exception of needing better blood sugar control. She is now anticipating a foot surgery and is eager to have that completed. The patient is reasonably optimized for the planned surgery Stop antiplatelet medication 7 days prior to the procedure Restart antiplatelet medication as soon as possible post-operatively, usually the next day documented in this encounter Associated Problem(s): Seizures (HCC) No recent seizures or seizure-like events to report. Associated Problem(s): Acute ischemic stroke (HCC) There are no new stroke symptoms to findings. 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 Decrease topiramate to 50 mg twice per day Call in 3-4 weeks to report your progress documented in this encounter Associated Problem(s): Seizures (HCC) No further seizures. -Continue Topamax. 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 -Continue Topamax 50 mg in a.m. and 100 mg in p.m. -Fioricet at onset of headache. No more than 2 times per week. -Would avoid triptan's given patient's history of AVM. documented in this encounter INFORMATION SOURCE (unrecogn ized section and content) DATE CREATED AUTHOR 11/02/2017 [facility] DATE CREATED AUTHOR AUTHOR'S ORGANIZ ATION 07/14/2018 [facility] DATE CREATED AUTHOR AUTHOR'S ORGANIZ ATION 08/08/2018 [facility] DATE CREATED AUTHOR AUTHOR'S ORGANIZ ATION 12/09/2018 [facility] [place] DATE CREATED AUTHOR AUTHOR'S ORGANIZ ATION 01/25/2019 [facility] DATE CREATED AUTHOR AUTHOR'S ORGANIZ ATION 06/07/2019 [facility] DATE CREATED AUTHOR AUTHOR'S ORGANIZ ATION 01/24/2020 [facility] DATE CREATED AUTHOR AUTHOR'S ORGANIZ ATION 05/17/2020 [facility] DATE CREATED AUTHOR AUTHOR'S ORGANIZ ATION 07/16/2020 [facility] DATE CREATED AUTHOR AUTHOR'S ORGANIZ ATION 07/22/2020 [facility] DATE CREATED AUTHOR AUTHOR'S ORGANIZ ATION 02/06/2021 [facility] ([place]) DATE CREATED AUTHOR AUTHOR'S ORGANIZ ATION 02/15/2021 [facility] DATE CREATED AUTHOR AUTHOR'S ORGANIZ ATION 05/28/2021 [facility] DATE CREATED AUTHOR AUTHOR'S ORGANIZ ATION 06/02/2021 [facility] DATE CREATED AUTHOR AUTHOR'S ORGANIZ ATION 07/22/2022 [facility] DATE CREATED AUTHOR AUTHOR'S ORGANIZ ATION 12/02/2023 [facility] DATE CREATED AUTHOR AUTHOR'S ORGANIZ ATION 12/26/2023 [facility] Reason for Visit (unrecogniz ed section and content) Reason Comments Extremity Weakness Status Reason Specialty Diagnoses / Procedures Referre d By Contact Referred To Contact Diagnoses Bilateral leg weakness LE paralysis, r/o Guillain Walton exacerbation Status Reason Specialty Diagnoses / Procedures Referre d By Contact Referred To Contact Reason Comments Reason Comments Follow-up 6 month f/u on migra ine Reason Comments Migraine Reason Comments Back Pain Pt to ED via EMS as a transfer from [facility] for c/o back pain. Pt states she was placing her dog in the bath and felt a pop. Has been experiencing pain in the area, with lower extremity weakness and episodes of incontinence. Reason Comments Follow-up Stroke, hemiplegic m igraine, seizures Reason Comments Follow-up pt says f/u for seiz ures and migraines - no seizures to report - Pt says in the past 4 months she has had six migraines. Reason Onset Date Comments video visit 08/16/2020 Reason Comments Medication Refill Reason Comments Appointment Reason Comments Radio GI Main HB6 Specialty Diagnoses / Procedures Referred By Contac t Referred To Contact XR IMAGING Diagnoses Esophageal dysphagia Procedures XR ESOPHAGRAM RADIOLOGIC EXAM ESOPHAGUS SINGLE CONTRAST STUDY Charis Oakley MD [address] [place] [address] [place] [id number] Referral ID Status Reason Start Date Expiration Date V isits Requested Visits Authorized [id number] Closed Auto-Generate d Referral 01/13/2023 02/12/2024 1 1 Reason Comments Fever Urinary issues, head ache, burning, frequency, flank pain x 1 day Reason Comments Back Pain R side mid into fron t, sharp stabbing pain, fatigue x last night Reason Comments Seizures Reason Comments Urinary Problem Burning, frequency, fever x 5 days Reason Comments Results Urine Cx mixed Soni Cano, DO - 07/11/2018 9:55 PM EST H&P Notes (unrecognized sect ion and content) [facility] HISTORY AND PHYSICAL Patient Name: Delmy Buchanan : 1980 MR #: [id number] Admit Date: [id number] Physicians: Charis Espinal MD (Family); Yolanda Campos MD (Referring) Delmy Buchanan is a 37 y.o. female patient of Charis Espinal MD with history of seizure disorder, AVM in the brain, DM, migraines, thyroid disorder, fibromyalgia, presented with bilateral lower extremity weakness. 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 Decreased reflexes in bilateral lower extremities, decreased pain response in bilateral lower extremities. Continuous pulse oximetry overnight Neurology consultation PT/OT consultation DM: Without hyperglycemia, initial BG of 123, last A1c of 6.1 (02/18/16) Controlled at home with PO meds and 10 units lantus HS Will continue insulin, hold PO medications, and add SSI. Seizure disorder Last seizure reported approximately 4 years prior to admission Continue home topiramate 50 mg a.m., 100 mg at bedtime Hypothyroid No acute issues at this time TSH on admission normal at 1.35 Continue home [place] Thyroid 30 mg Admitted From: home Medication Reconciliation: Verified Quality Measures DVT Prophylaxis: Lovenox Leal Catheter: none Disposition Outpatient Testing: Chief Complaint Leg weakness History of Present Illness Patient presents to the ED with 1 day of lower extremity weakness. Patient states symptoms started 1 day prior with decreased sensation, numbness, tingling in bilateral lower extremities. This continued overnight, she then had sudden onset lower extremity weakness/heaviness. 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 States at that time she had similar symptoms with initially lower extremity numbness and tingling, followed by lower extremity weakness. She did not require respiratory support during that episode. She does follow with neurology through [facility]. Patient does not feel like she is having any difficulty breathing at this point time. She does have some tingling in her upper extremities however this is resolved. Past Medical History Past Medical History: Diagnosis Date AVM (arteriovenous malformation) brain Diabetes mellitus (HCC) Disease of thyroid gland Fibromyalgia Headache Seizures (HCC) Stroke (HCC) tia and cva Past Surgical History Past Surgical History: Procedure Laterality Date SECTION CHOLECYSTECTOMY fallopian tube removal HYSTERECTOMY left post tibial tendon repair right post tibial tendon repair WISDOM TOOTH EXTRACTION Family History Family History Problem Relation Age of Onset Anxiety Mother Alcohol abuse Maternal Uncle Social History Social History Tobacco Use Smoking Status Never Smoker Social History Substance and Sexual Activity Alcohol Use Yes Social History Substance and Sexual Activity Drug Use No Allergy Information I have reviewed the patient's allergies. Ct: iodinated contrast- oral and iv dye; Iodine; Metformin; Morphine; Nortriptyline; and Sulfa (sulfonamide antibiotics) Home Medications Home medications were reviewed. Review Of Systems All systems have been reviewed and are negative except as noted in HPI or below Constitutional:No fever, no weight loss Eyes:No diplopia ENT:No sinus drainage CV:No chest pain. No ankle swelling Resp:No dyspnea. No wheezing GI:No abdominal pain.No abdominal distention :No dysuria Neuro:No headache. + weakness + numbness Integumentary:No skin rash MuscSkel:No arthralgias Endo:No polyuria Allergic/Immunologic:No hives Psych:No unusual mood swings. Physical Examination BP (!) 147/108 Pulse 67 Temp 98.4 F (36.9 C) (Oral) Resp 13 Ht 5' 6 Wt 88.5 kg (195 lb) LMP 07/07/2015 (Exact Date) SpO2 98% BMI 31.47 kg/m General Appearance: alert, well appearing, and in no acute distress. HEENT: Head- normocephalic; Eyes- PERRLA, EOMI; Ears- external auditory canals clear, hearing intact; Nose- no nasal discharge; Throat- oropharynx normal Cardiovascular: regular rate and rhythm; normal S1, S2; no murmurs, rubs, clicks or gallops; no peripheral edema. Respiratory: lungs clear to auscultation; without wheezes, rales or rhonchi Abdomen: soft, non-tender, non-distended; positive bowel sounds Neurological: alert, oriented x 3, normal speech; upper extremity strength 5/5 bilaterally. Bilateral leg strength 3/5 hip flexion, plantar flexion and dorsiflexion. Decreased pain sensation, sharp vs dull distinction. Patellar reflex 1/4 bilaterally. Musculoskeletal: no significant deformity or tenderness to palpation Skin: normal coloration, texture and turgor; no lesions or eruptions Psych: normal mood and affect Laboratory and Additional Data Reviewed Laboratory 07/11/18 10:19 PM Radiology 07/11/18 10:19 PM Cardiology 07/11/18 10:19 PM Medications 07/11/18 10:19 PM Transcriptions 07/11/18 10:19 PM Expected Discharge/Time Spent Based on current clinical information, the expected discharge date is: tomorrow (07/12/2018) in this encounter Ghislaine Cassidy MD - 07/13/2018 12:57 PM Reagan Baker LSW - 07/12/2018 3:46 PM Kirit Patel II, PT - 07/12/2018 2:51 PM Junior Dickerson - 07/12/2018 2:49 PM EST Consult Notes (unrecognized section and content) Associated Order(s): IP CONSULT TO PHYSICAL MEDICINE REHAB [facility] Department of Physical Medicine & Rehabilitation Consult Note Patient Name: Delmy Buchanan Admit Date: [id number] : 1980 MR #: [id number] Attending Physician: Generic [facility] Physicians: Charis Espinal MD (Family); Yolanda Campos MD (Referring) Chief Complaint Leg weakness Assessment & Plan Delmy Buchanan is a 37 y.o. female with PMH of seizures, fibromyalgia, DM2, and brain AVM admitted on 07/11/2018 who presents with bilateral lower extremities weakness, etiology unknown, undergoing workup. Acute Bilateral Lower Extremities Weakness - with paresthesias, previously numbness and tingling. Tingling now resolved. - etiology unknown, differential includes GBS and conversion - CT head was negative for acute intracranial abnormality - MRI thoracic and lumbar spine without signal abnormality, DDD - Neuro planning on LP today - regarding rehab, patient would be appropriate for IPR when medically stable - please continue therapies while patient is admitted Final plan per attending physician Thank you for the consult. Please feel free to contact our consult service with medical updates or questions. History of Present Illness Reason for Consult: evaluation for IPR Delmy Buchanan is a 37 y.o. female with PMH of seizures, fibromyalgia, IDDM2, and brain AVM admitted on 07/11/2018 who presents with bilateral lower extremities weakness with paresthesias. She reports that Wednesday she developed pins and needles in her toes. This ascended to her mid calf. She went the to ED that checked her electrolytes and discharged her home. She reports that her legs then went completely numb so she called the squad and was taken to [place]. She was then transferred to [facility] for [place]. CT head was negative for acute intracranial abnormality. MRI thoracic and lumbar spine revealed DDD and was negative for signal abnormality. Neurology is following. The etiology of her weakness remains unknown. She is to undergo LP today. She had a previous episode of LE weakness in 2018. She states that she developed pins in her feet and within 1 hour she was paralyzed from the waste down. At the time she was transferred to [facility]. There she was worked up for GBS. Per the chart, she regained strength quickly after workup and was discharge home with home health. Review of care everywhere documents diagnosis of previous conversion disorder in and , however further documentation is not found. Today Delmy is seen resting, seated up in bed. No family members are present. She reports continued weakness in her legs. She states that her legs are numb, but that the tingling has resolved. Inpatient rehabilitation is explained to the patient and she is agreeable if she requires this at discharge. Review of Systems Negative except for symptoms reviewed in the HPI. Past Medical History I have reviewed the patient's past medical, surgical, and family history. Past Medical History: Diagnosis Date AVM (arteriovenous malformation) brain Diabetes mellitus (HCC) Disease of thyroid gland Fibromyalgia Headache Seizures (HCC) Stroke (HCC) tia and cva Allergies I have reviewed the patient's allergies. Allergies Allergen Reactions Ct: Iodinated Contrast- Oral And Iv Dye GI Intolerance Other reaction(s): GI Upset Iodine Other reaction(s): GI Upset Metformin Diarrhea XR and plain XR and plain Morphine Other reaction(s): Other: See Comments Muscle contractions all over Nortriptyline Other reaction(s): Other: See Comments sugar drops and heart issues Other reaction(s): Other (See Comments) sugar drops and heart issues Sulfa (Sulfonamide Antibiotics) Hives Past Surgical History Past Surgical History: Procedure Laterality Date SECTION CHOLECYSTECTOMY fallopian tube removal HYSTERECTOMY left post tibial tendon repair right post tibial tendon repair WISDOM TOOTH EXTRACTION Family History Family History Problem Relation Age of Onset Anxiety Mother Alcohol abuse Maternal Uncle Social History Social History Socioeconomic History Marital status: Spouse name: Not on file Number of children: Not on file Years of education: Not on file Highest education level: Not on file Social Needs Financial resource strain: Not on file Food insecurity - worry: Not on file Food insecurity - inability: Not on file Transportation needs - medical: Not on file Transportation needs - non-medical: Not on file Occupational History Not on file Tobacco Use Smoking status: Never Smoker Substance and Sexual Activity Alcohol use: Yes Drug use: No Sexual activity: Not on file Other Topics Concern Not on file Social History Narrative Not on file Living Arrangements: Alone Support Systems: Family members, Parent, Spouse/significant other Functional Status: Independent Support System: lives alone 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 [employer] Home Environment: 1 level apartment with 0 JOÃO Functional History Premorbid level of function: Independent with ADLs and functional transfers, Independent with homemaking with ambulation Current level of function per therapy evaluations: reviewed in EMR ROM restrictions, WB restrictions, & precautions: fall precautions Medications Home Meds: Delmy Buchanan Home Medication Instructions Prior to Surgery LOLI:[id number] Printed on:07/13/18 1257 Medication Information Take last dose on Take the morning of surgery Comment(s) acetaminophen-codeine (TYLENOL #3) 300-30 mg per tablet Take 1 tablet by mouth every 4 to 6 hours as needed for pain . aspirin 325 MG EC tablet Take 1 tablet (325 mg total) by mouth daily. diclofenac sodium 1 % Gel Apply 1-2 grams topically to affected area 4 times per day NEEDED for pain.] gabapentin (NEURONTIN) 300 MG capsule Take 300 mg by mouth every 8 (eight) hours . insulin glargine (LANTUS) 100 unit/mL (3 mL) InPn Inject 10 Units under the skin . JARDIANCE 25 mg Tab Take 1 tablet by mouth every morning. liraglutide (VICTOZA 3-ENEIDA) 0.6 mg/0.1 mL (18 mg/3 mL) Pen Inject 1.8 mg under the skin daily . omeprazole (PRILOSEC) 40 MG capsule Take 40 mg by mouth daily . ondansetron (ZOFRAN-ODT) 4 MG disintegrating tablet Dissolve 4 mg on top of tongue every 4 (four) hours as needed for nausea . thyroid (ARMOUR) 30 mg tablet Take 30 mg by mouth every morning . topiramate (TOPAMAX) 25 MG tablet Take 2 (two) tablets (50 mg total) by mouth every morning. traMADol (ULTRAM) 50 mg tablet Take 50 mg by mouth every 8 (eight) hours as needed for pain . Physical Exam BP 121/84 (BP Location: Right arm, Patient Position: Lying) Pulse 64 Temp 98.2 F (36.8 C) (Oral) Resp 16 Ht 5' 6 Wt 88.5 kg (195 lb 1.7 oz) LMP 07/07/2015 (Exact Date) SpO2 97% BMI 31.49 kg/m Temp: [97.4 F (36.3 C)-98.2 F (36.8 C)] 98.2 F (36.8 C) Heart Rate: [64-77] 64 Resp: [16-20] 16 BP: (90-121)/(59-84) 121/84 Wt Readings from Last 1 Encounters: 07/12/18 88.5 kg (195 lb 1.7 oz) General: alert, no acute distress, appears stated age Head/Neck: normocephalic, hearing normal, face symmetrical Eyes: conjunctiva/sclera normal bilaterally Cardiac: extremities warm and well perfused, no peripheral edema Resp: normal respiratory effort, no accessory muscle use Neuro: Alert and interactive, attention intact, speech normal, motor strength: Intact bilateral upper extremities. Lower extremity exam with limited effort. Patient able to actively flex hips and plantar flex and dorsiflex ankles. Decreased sensation to light touch bilateral lower extremities. Hyporeflexic at patella and ankle bilaterally. MSK: no long bone deformities Skin: normal turgor, no rashes noted Laboratory Data Acquired/Reviewed (07/13/18 12:57 PM): Labs, Rad, Card, Medications, Transcriptions, Micro, Outside Records, Family Results from last 7 days Lab Units 07/13/1841707/12/1844507/11/183 SODIUM mmol/L 139 139 140 POTASSIUM mmol/L 3.9 3.6 3.6 CHLORIDE mmol/L 107 105 106 BUN mg/dL 16 15 14 CREATININE mg/dL 0.72 0.70 0.69 GLUCOSE mg/dL 158* 161* 123* Results from last 7 days Lab Units 07/13/1841707/12/180 07/11/181932 WBC K/mcL 5.83 6.05 6.91 HGB g/dL 13.6 13.2 13.7 HCT % 41.9 39.8 39.8 MCV fL 84.1 82.6 81.1 PLT K/mcL 242 242 289 Results from last 7 days Lab Units 07/13/1841707/12/18445 CALCIUM mg/dL 8.8 8.5 MAGNESIUM mg/dL -- 1.6 Results from last 7 days Lab Units 07/13/18 1146 INR 1.0 PROTIME seconds 13.0 Diagnostic Studies I have reviewed the patient's relevant imaging. US Renal Only Preliminary Result No hydronephrosis. 12 mm lesion in the right kidney seen on earlier MRI is not appreciated on today's ultrasound. However this has been stable dating back to 06/11/2011 MRI and is compatible with a cyst. [facility] Workstation ID: [id number] MR Thoracic Spine With And Without Contrast Preliminary Result THORACIC SPINE: Tiny scattered disc herniations throughout the thoracic spine, without evidence of significant spinal canal stenosis, or neural foraminal stenosis. No evidence of extrinsic spinal cord compression. No evidence of abnormal T2 hyperintense signal within the spinal cord. No evidence of abnormal enhancement involving the spinal cord. LUMBAR SPINE: No evidence of abnormal signal within the distal thoracic spinal cord or conus. No evidence of abnormal enhancement involving the nerve roots. Multilevel degenerative changes of the lumbar spine, most prominent at L4-L5, as detailed above. Please note, the transitional lumbosacral anatomy and numbering system as detailed above. Indeterminate 12 mm hypoenhancing lesion within right kidney. Recommend nonemergent renal ultrasound. TRP/kms Workstation ID: [id number] MR Lumbar Spine With And Without Contrast Preliminary Result THORACIC SPINE: Tiny scattered disc herniations throughout the thoracic spine, without evidence of significant spinal canal stenosis, or neural foraminal stenosis. No evidence of extrinsic spinal cord compression. No evidence of abnormal T2 hyperintense signal within the spinal cord. No evidence of abnormal enhancement involving the spinal cord. LUMBAR SPINE: No evidence of abnormal signal within the distal thoracic spinal cord or conus. No evidence of abnormal enhancement involving the nerve roots. Multilevel degenerative changes of the lumbar spine, most prominent at L4-L5, as detailed above. Please note, the transitional lumbosacral anatomy and numbering system as detailed above. Indeterminate 12 mm hypoenhancing lesion within right kidney. Recommend nonemergent renal ultrasound. TRP/kms Workstation ID: [id number] CT Head Or Brain Without Contrast Preliminary Result No acute intracranial abnormality. Partial agenesis of the corpus callosum. RM/mkv Workstation ID: [id number] XR Chest 1 View Final Result No acute process. Workstation ID: [id number] XR Lumbar Puncture (Diagnostic) (Results Pending) Discussed with the attending physician, Dr. Vigil. Signed: Ghislaine Cassidy MD, PGY-2 Physical Medicine & Rehabilitation Pager # [phone] 07/13/2018, 12:57 PM Associated attestation - Elba Vigil MD - 07/14/2018 11:07 AM EST I have seen and examined the patient independently or with the resident after detailed discussion of the patient's case and history prior to the encounter and agree with the findings. Discussion: On my exam she has normal upper limb strength with anti gravity lower limb strength. There is poor effort on exam. She has absent reflexes at the achilles and patellar tendons in the lower limbs. She is diabetic but with well controlled sugars and a close to normal A1c. Work up is ongoing for GBS. No indication for an EMG at this time. Test would likely be normal. Impression: Parasthesias, weakness, gait disturbance Recommendation: When the patient is medically ready recommend a short stay in acute rehabilitation. She would benefit from multidisciplinary rehab to adapt to her new disability and improve strength, endurance and functional independence in the home environment. Associated Order(s): IP CONSULT TO CARE MANAGEMENT DISCHARGE PLAN PROGRESS NOTE Date: 07/12/2018 Time: 3:46 PM Patient Name: Delmy Buchanan Date of : 1980 Sex: Female Discharge Readiness Expected Discharge Date: 07/16/18 Barriers to Discharge: Other (Comment)(pt will need a pre cert/ facility choice and acceptance ) [facility] Disposition Reason for Choice: Patient/Family prefernce Anticipated Discharge Plan Anticipated Facility Type: Home care, [facility] facility, Acute inpatient rehab, Undetermined Reason For Consult: OT eval suggesting 5-7 days at discharge. Situation/Background: history of seizure disorder, AVM in the brain, DM, migraines, thyroid disorder, fibromyalgia, presented with bilateral lower extremity weakness. Action: SW received consult and completed chart. Bill [facility] liaison to check if pt is appropriate for IPR. Addendum 3:59 PM Bill liaison at [facility] will wait for PMR recs. Recommendation: TBD Will need PMR consult for a facility. This pt will need a Pre Cert. Physical Therapy Physical Therapy Plan of Care Certification Note Coded Admission Diagnosis Bilateral leg weakness [R29.898] PT Functional Diagnosis: R26.2 Difficulty in walking, not elsewhere classified PT Goals Multidisciplinary Problems (Active) Problem: Mobility - Impaired Dates: Start: 07/12/18 Description: Disciplines: PT Goal: PT- bed mobility Dates: Start: 07/12/18 Expected End: 07/19/18 Description: PT - Patient will perform bed mobility with modified independence to improve functional mobility and safety. Disciplines: PT Goal: PT- sit to stand transfer Dates: Start: 07/12/18 Expected End: 07/19/18 Description: PT - Patient will perform sit to/from stand transfer with modified independence to improve functional mobility and safety. Disciplines: PT Goal: PT- dynamic balance Dates: Start: 07/12/18 Expected End: 07/19/18 Description: PT - Patient will perform standing dynamic balance activities with device with modified independence to improve functional mobility and safety. Disciplines: PT Goal: PT- ambulation Dates: Start: 07/12/18 Expected End: 07/19/18 Description: PT - Patient will ambulate 150 feet with device with modified independence to improve functional mobility and safety. Disciplines: PT Intervention: Education, Assistive device training Frequency: PRN Dates: Start: 07/12/18 Description: Intervention: Education, Bed mobility training Frequency: PRN Dates: Start: 07/12/18 Description: Intervention: Education, Balance training Frequency: PRN Dates: Start: 07/12/18 Description: REMINDER(s): Reinforce education provided by Physical Therapy related to balance training. Intervention: Education, Gait training Frequency: PRN Dates: Start: 07/12/18 Description: Intervention: Education, Transfer training Frequency: PRN Dates: Start: 07/12/18 Description: Intervention: Education, Precautions Frequency: PRN Dates: Start: 07/12/18 Description: Frequency of Treatment (times per week): 7 This physical Therapy Plan of Care will be carried out until: 1.) The PT plan has been resolved or 2.) The patient is discharged from the acute [facility] Physical Therapy PHYSICAL THERAPY EVALUATION NOTE Skilled Therapy Needs After Discharge Anticipate Resolution of Current Assessment Limitations Including: Pain, Mechanical Barriers Are Skilled Therapy Services Needed After Discharge: Yes Intensity of Skilled Therapy: Up to 5 days per week(progressing) Anticipated Duration of Skilled Therapy: Duration 7 - 10 days DME Recommendation: (Patient owns DME) Outcomes Measures Prior Function - Basic Mobility Raw Score: 24 Points Prior Function - Basic Mobility % Impaired: 0% functionally impaired AM-PAC - Basic Mobility Raw Score: 17 Points AM-PAC - Basic Mobility % Impaired: 43.83% functionally impaired Physical Therapy Assessment History: The following factors influence the patient's participation in the PT plan of care: Personal factors: none Environmental factors: lives alone and Unreliable assistance available The following co-morbidities (from this admission or prior) influence the patient's participation in this plan of care: Patient is a 37 YOF presenting to [facility] with BLE weakness and numbness with history of GBS. Number of History elements affecting this patient's PT plan of care: 3 or more Examination of Body Systems: The patient presents with impairments of strength, ROM, functional endurance, sensation. These impairments result in limitations of gait, functional transfers, stair-climbing, safety and activity tolerance. These impairments result in restrictions of household mobility, community mobility, work-related activities and leisure activities. Number of Body Systems elements affecting this patient's PT plan of care: 4 or more Clinical Presentation: The patient's clinical presentation for this PT evaluation is evolving as evidenced by current PT documentation. Activity Tolerance Activity Tolerance: Tolerates 10 - 20 min activity with multiple rests Therapy Precautions Orthotic Devices: No Weight Bearing Status: WFL General Rehab Precautions: Fall risk(LE weakness) Balance Sitting Balance - Static: Sits without support for more than 30 seconds Sitting Balance - Dynamic: Moves / returns trunkal midpoint more than 2 inches in all planes Standing Balance - Static: Supports self independantly with both upper extremities Standing Balance - Dynamic: Moves / returns trunkal midpoint more than 2 inches in all planes Bed Mobility Supine to Sit: Contact guard Transfers Sit to Stand: Min Hand Booked Folder And Stitcher: Wheeled walker Gait/Locomotion Gait Assistance: Contact guard Assistive Device: Wheeled walker Distance: 40 Feet Pattern: Step through, R decreased step length, L decreased step length(slow velocity) Home Living Type of Home: Apartment Home Layout: One level(0 JOÃO) Bathroom Shower/Tub: Walk-in shower Home Equipment: Wheeled Walker Additional Comments: Patient reports having a history of Guillaine- [place] in Feb, was discharged home with a w/w from Outside Hospital. Patient has since fully recovered to be completely independent. 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) Past Medical History: Diagnosis Date AVM (arteriovenous malformation) brain Diabetes mellitus (HCC) Disease of thyroid gland Fibromyalgia Headache Seizures (HCC) Stroke (HCC) tia and cva Past Surgical History: Procedure Laterality Date SECTION CHOLECYSTECTOMY fallopian tube removal HYSTERECTOMY left post tibial tendon repair right post tibial tendon repair WISDOM TOOTH EXTRACTION PHYSICAL THERAPY TREATMENT NOTE Neuromuscular Reeducation Skilled Intervention: Noted no unsteadiness or gross losses of balance while seated EOB, performing sit to stand transfers with WW and ambulating using WW Gait Training Skilled Intervention: VC to bring WW further out in front in order to avoid running into front horizontal bar of WW to promote maximum safety during gait training; TC to facilitate initiation of side stepping Therapeutic Activities Bed Mobility Skilled Intervention: VC to move bilateral LE off edge of bed in prep for transfer to sitting position; TC at posterior trunk to facilitate using trunk to bring self to upright sitting position at EOB Transfers Skilled Intervention: VC to bring WW all the way up to front of chair and then turn 180 degrees to sit in chair; VC for safe hand placement - one on WW handle and one hand on bed surface for maximum safety, efficiency of transfer; TC provided under armpit to facilitate upward propulsion to achieve full upright standing position; of note, patient demonstrated inconsistent presentations throughout today's examination - when asked to extend knee in supine, strength appered to be 1-2/5 but patient able to produce 4/5 strength when knee extension tested in sitting; patient also kciked one leg out in front during one stand>sit transfer, which is a more difficult task than leaving BLE underneath when coming to sitting (essentially a voluntary single leg squat)); patient also demonstrated changing gait patterns throughout gait training, sometimes keeping her LLE straight and locked into extension, sometimes bending L knee in an exaggerated manner during weight acceptance Therapeutic Exercises For complete objective data, detailed plan of care and patient education refer to: PT EVALUATION flow sheet, PT TREATMENT flow sheet, patient Plan of Care, Plan of Care progress note, and Patient Education. This note stands as the current Discharge Summary upon patient discharge from the hospital or completion of Physical Therapy Plan Associated Order(s): IP CONSULT TO NEUROLOGY Neurology Inpatient Consult [facility] 07/12/[address] [facility] Patient: Delmy Limkwunekobi Date of : 1980 (37 y.o.) Referring Provider: Refer to consult order in electronic medical record PCP: Charis Espinal MD ASSESSMENT: 37 y.o. female with history of DM and fibromyalgia with rest of PMHX as below who presented to [facility] on 07/11/2018 with bilateral leg weakness and inability to walk along with numbness of both legs up to the groin. PLAN: Bilateral leg weakness Possible GBS and possible conversion disorder. She has diabetes and she has hypoactive DTRs all over. She gives some effort on left but not much on right and there is bilateral subjective numbness up to the groin area associated with subjective symptoms of not feeling herself urinate. Will do MRI imaging of Thoracic and Lumbar region and also send her for an LP. Reviewed Dr. Ford's and Dr. Mahan's notes along with her outside medical records from [facility] and [facility]. She has no family to get additional history. Eventual follow up with Dr. Ford. DIAGNOSTIC TESTING SUMMARY: Pending Lab and Radiology Results Order Current Status CT Head Or Brain Without Contrast Preliminary result Resulted Testing: (MRI/CT/XR, EEG, EMG, CSF, Cardiac, Labs) Radiology images independently reviewed by me with my comments immediately below: MRI Head: Agree with interpretation. ----- MRA Head: Agree with interpretation. ----- MRA Neck: Agree with interpretation. ----- CT Head 24 hrs after acute stroke treatment: Unremarkable. SUBJECTIVE: Chief Complaint/Reason for Consult: LE weakness and paresthesia bilaterally Informant(s): Patient History of Present Illness: Delmy Buchanan is a 37 y.o. female with past medical history of DM, Fibromyalgia, stroke, seizure (on Topamax), mild NAFLD with HENRY and s/p hysterectomy for chronic pelvic pain and dysfunctional uterine bleeding. She was followed by [facility] and now being followed by GI for abdominal pain at [facility]. She was hospitalized at [facility] in [place] in 02/24 and states there she was given the dx of GBS. However looking at the discharge summary from there that is scanned into [facility], all of her workup was normal including LP and EMG. She was even seen by NS[facility] for her minimal DJD of the spine. She got better quickly after the workup and was discharged home. Patient states that her symptoms started about 2 days ago and she initially had numbness of her left leg and then on to right leg and over the past 24-36 hours she got weak to the point she could not drive or walk and she went to local ED where only blood work was done and she was sent home. She was on the highway and her legs became so weak that she went to the side of [place] and called EMS and she was taken to [facility] and from there transferred here as her neurologist is here. Nothing has improved yet. She had an MRI of the brain in 2018 along with MRA when she presented with being unable to move her right arm, all of her workup was normal. She was told that she did not have a stroke just like she was told that she did not GBS but she still claims the diagnosis. 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 Review of Systems: Systems checked below reviewed and negative except pertinent positives and negatives documented in the History of Present Illness (HPI). [x] Constitutional [x] Respiratory [x] Psychiatric [x] Cardiovascular [] Neurologic [x] Hematologic/Lymphatic [x] Eyes [x] Gastrointestinal [x] Ear, nose, mouth, throat [x] Genitourinary [x] Allergy/Immune [x] Musculoskeletal [x] Endocrine [x] Skin History: Past Medical History: Diagnosis Date AVM (arteriovenous malformation) brain Diabetes mellitus (HCC) Disease of thyroid gland Fibromyalgia Headache Seizures (HCC) Stroke (HCC) tia and cva Past Surgical History: Procedure Laterality Date SECTION CHOLECYSTECTOMY fallopian tube removal HYSTERECTOMY left post tibial tendon repair right post tibial tendon repair WISDOM TOOTH EXTRACTION Social History Socioeconomic History Marital status: Spouse name: Not on file Number of children: Not on file Years of education: Not on file Highest education level: Not on file Social Needs Financial resource strain: Not on file Food insecurity - worry: Not on file Food insecurity - inability: Not on file Transportation needs - medical: Not on file Transportation needs - non-medical: Not on file Occupational History Not on file Tobacco Use Smoking status: Never Smoker Substance and Sexual Activity Alcohol use: Yes Drug use: No Sexual activity: Not on file Other Topics Concern Not on file Social History Narrative Not on file Family History Problem Relation Age of Onset Anxiety Mother Alcohol abuse Maternal Uncle Additional History Comments: None and see Dr. Tadeo's notes and workup in 2016 along with her d/c summary from [facility]. Allergies: Ct: iodinated contrast- oral and iv dye; Iodine; Metformin; Morphine; Nortriptyline; and Sulfa (sulfonamide antibiotics) HOME Medications: Prior to Admission medications Medication Sig Start Date End Date Taking? Authorizing Provider acetaminophen-codeine (TYLENOL #3) 300-30 mg per tablet Take 1 tablet by mouth every 4 to 6 hours as needed for pain . Yes Historical Provider, gabapentin (NEURONTIN) 300 MG capsule Take 300 mg by mouth every 8 (eight) hours . Yes Historical Provider, JARDIANCE 25 mg Tab Take 1 tablet by mouth every morning. 11/16/17 Yes Historical Provider, liraglutide (VICTOZA 3-ENEIDA) 0.6 mg/0.1 mL (18 mg/3 mL) Pen Inject 1.8 mg under the skin daily . Yes Historical Provider, ondansetron (ZOFRAN-ODT) 4 MG disintegrating tablet Dissolve 4 mg on top of tongue every 4 (four) hours as needed for nausea . 03/23/16 Yes Historical Provider, thyroid (ARMOUR) 30 mg tablet Take 30 mg by mouth every morning . Yes Historical Provider, topiramate (TOPAMAX) 25 MG tablet Take 2 (two) tablets (50 mg total) by mouth every morning. 04/07/17 Yes Eladia Peña CNP traMADol (ULTRAM) 50 mg tablet Take 50 mg by mouth every 8 (eight) hours as needed for pain . Yes Historical Provider, aspirin 325 MG EC tablet Take 1 tablet (325 mg total) by mouth daily. 02/19/16 Cinthya Barrett CNP diclofenac sodium 1 % Gel Apply 1-2 grams topically to affected area 4 times per day NEEDED for pain.] 04/16/18 Historical Provider, insulin glargine (LANTUS) 100 unit/mL (3 mL) InPn Inject 10 Units under the skin . 01/29/15 Historical Provider, omeprazole (PRILOSEC) 40 MG capsule Take 40 mg by mouth daily . 02/18/18 Historical Provider, HOSPITAL Infusions: HOSPITAL Scheduled Medications: gabapentin 300 mg Oral Q8H KOBY insulin glargine 10 Units Subcutaneous Nightly lispro insulin 0-15 Units Subcutaneous at bedtime insulin lispro 0-30 Units Subcutaneous TID AC thyroid 30 mg Oral QAM topiramate 100 mg Oral Nightly topiramate 50 mg Oral Daily HOSPITAL PRN Medications: acetaminophen, acetaminophen-codeine, sodium chloride (PF) AND sodium chloride (PF) AND gadoterate meglumine, sodium chloride (PF) AND sodium chloride (PF) AND gadoterate meglumine, nalOXone AND Notify physician AND naloxone, ondansetron, ondansetron, traMADol OBJECTIVE: Physical Examination: BP 100/69 (BP Location: Right arm, Patient Position: Lying) Pulse 70 Temp 98.1 F (36.7 C) (Oral) Resp (!) 20 Ht 5' 6 Wt 88.5 kg (195 lb 1.7 oz) LMP 07/07/2015 (Exact Date) SpO2 97% BMI 31.49 kg/m LEE: DNFC: Does Not Follow Commands LUCIA: Unable to Assess General: Well-developed, obese white female who is alert and oriented x3 with no signs of agnosia, aphasia or apraxia. She is not in any acute distress that she is sitting in her bed and playing with her phone. Cranial nerve examination shows a symmetrical face, extraocular movements are intact tongue and palate are in the midline. Visual cope are normal to confrontation. Pupils are equally reactive to light. There is no nystagmus noted. Muscle examination shows normal tone bilaterally. Bulk is normal and there is no fasciculations noted. Upper extremity strength is 5/5 for both proximal and distal muscles. In the lower extremities she gives some effort on the left side with iliopsoas, hamstrings, tibialis anterior, hip extensor and foot extensors being 3/5 but on the right she is unable to get her leg off the bed. She gives me some effort with hip extensors but that was about it. She does not seem to have any significant pain on palpation of her legs. Deep tendon reflexes are 1/3 bilaterally in both upper and lower extremities even with distraction. Plantar reflexes are flexor. There is no clonus noted at the ankles. Cerebellar examination finger to nose maneuver is within normal limits. Alternating motor rates of finger tapping and pronation supination movements of the hands are normal. Sensory examination showed a normal temperature and vibratory sense but patient states that she could not feel tactile sensation or her toes going up and down on the proprioception exam. Patient was able to sit up using her hands and lifting her legs off the bed to dangle it over the side of the bed. I did not attempt to make her stand as I did not have any help at the time of her gait belt. There is no carotid, cranial bruit auscultated. Heart rhythm is regular. Lungs are clear to auscultation. This consult was for 70 minutes with more than 50% of the time spent answereing patient's question and reviewing her previous charts. Yolanda Faith MD Occupational Therapy OCCUPATIONAL THERAPY EVALUATION NOTE Skilled Therapy Needs After Discharge Anticipate Resolution of Current Assessment Limitations Including: Pain Are Skilled Therapy Services Needed After Discharge: Yes Intensity of Skilled Therapy: 5 to 7 days per week Anticipated Duration of Skilled Therapy: Duration 7 - 10 days DME Recommendation: Bedside commode DME Rationale: Drop-arm commode - necessary to aid in transfer to commode, Commode - patient confined to single room(UNable to stand due to LE weakness) Rehab Potential: Good, For goals Outcomes Measures Prior Function Daily Activity: Raw Score: 24 Prior Function Daily Activity % Impaired: 0% functionally impaired AM-PAC Daily Activity: Raw Score: 18 AM-PAC Daily Activity % Impaired: 46.65% functionally impaired- Significant mobility impairments not reflected in OT AM-PAC Occupational Therapy Assessment The patient presents with musculoskeletal and neurological impairment(s) in generalized debility lower extremity global systems which create performance deficits including strength, balance, coordination, proprioception, sensation, activity tolerance and pain, insight and safety, and knowledge deficit. These performance impairments limit participation in LE dressing, bathing, toileting, home management, meal preparation and functional mobility in the chosen occupational roles of premorbid level individual, family member and community member. The patient's co morbidities do affect patient performance in the above activities and roles. The patient's limitations of family/caregiver support is a barrier for return to prior level of function. The patient's awareness of own capacity and performance is a earring maker to return to prior level of function. During the assessment, significant modification of task was required and multiple treatment options were identified in the plan of care. This consultation required extensive review of the medical and therapy history. Activity Tolerance Activity Tolerance: Tolerates 10 - 20 min activity with multiple rests Therapy Precautions General Rehab Precautions: Fall risk(LE weakness ) Cognition Overall Cognitive Status: Within Functional Limits Arousal/Alertness: Appropriate responses to stimuli Orientation Level: Oriented X4 Executive functioning: WFL Safety Judgment: Good awareness of safety precautions Problem Solving: Able to problem solve independently Attention: Attends to quiet environment Hearing Status: WFL Social Interaction: WFL Comments: Patient follows 100% multi-step commands. ADL/IADL Grooming : Independent(supine level) UE Dressing: Independent(supine level ) LE Dressing: Mod Toileting : Min Home Management: Dependent Bed Mobility Rolling: Min Supine to Sit: Min Sit to Supine: Min Skilled Intervention: Cues for sequencing funcitonal transfer to attempt to promote independence. Functional Transfers Skilled Intervention: Patient does not demonstrate adequate LE strength to attempt standing. Therapist facilitates scooting at EOB in preparation for lateral transfer. Min cues for scooting techniques, weight shifting and body mechanics. Patient noted to have some degree of LE control as she transitions to sitting at EOB as well as during scooting tasks. 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 Patient has since fully recovered to be completely independent. 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 This note stands as the current Discharge Summary upon patient discharge from the hospital or completion of Occupational Therapy Plan of Care. in this encounter Almas Mcclendon RN - 07/12/2018 1:07 AM Tarsha Zhao MD - 07/11/2018 9:14 PM Almas Rivera RN - 07/11/2018 9:06 PM Almas Rivera RN - 07/11/2018 8:29 PM EST ED Notes (unrecognized secti on and content) Patient resting comfortably. NAD. VSS. Respirs even and unlabored. Skin warm, pink, dry and intact. Call light in reach. Updated on plan of care. Denies needs at this time. Will continue to monitor. PCP - Charis Espinal MD Chief Complaint Patient presents with Extremity Weakness HPI Patient is a 37-year-old female who presents for evaluation following initial assessment at outside hospital. Patient states that starting this morning she was having paresthesias of her bilateral lower extremity with subsequent weakness. Patient states that she was initially evaluated at [facility], states that she was discharged after basic blood work, subsequently evaluated at [facility] and directed here for further evaluation. 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 Patient states that she has been unable to ambulate since this morning, states that she was normally ambulating yesterday. Patient denies any falls, trauma, states that she did have a GI bug last week with multiple episodes of diarrhea. 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 Review of Systems Constitutional: Denies fever Eyes: Denies eye pain Ears, Nose, Mouth & Throat: Denies earache Cardiovascular: Denies chest pain Respiratory: Denies shortness of breath Gastrointestinal: Endorses recent history of diarrhea with nausea Genitourinary: Denies dysuria Skin: Denies a rash Neurological: Lower extremity weakness Psychiatric: No behavior problems Physical Exam Initial Vital Signs BP 125/88 Pulse 71 Temp 98.4 F (36.9 C) (Oral) Resp 16 Ht 5' 6 Wt 88.5 kg (195 lb) LMP 07/07/2015 (Exact Date) SpO2 96% BMI 31.47 kg/m Vital Signs During ED Visit (as charted by nursing) Patient Vitals for the past 24 hrs: BP Temp Temp src Pulse Resp SpO2 Height Weight 07/11/18 1925 125/88 98.4 F (36.9 C) Oral 71 16 96 % 5' 6 88.5 kg (195 lb) Constitutional: No acute distress Psychiatric: Patient was oriented to person, place, and time. Patient interacted appropriately with nurses and staff. Eyes: Pupils are equal, round and reactive to light. Extraocular eye movement intact. ENMT: Normocephalic and atraumatic. Cardiovascular: Regular rate and rhythm, no murmurs, rubs, or gallops appreciated. Respiratory: Clear to auscultation bilaterally, no wheezes, rales, or rhonchi appreciated. Gastrointestinal: Soft and non-tender in 4 quadrants. No masses appreciated. Musculoskeletal: No edema, cyanosis, or clubbing. Skin: Intact, no ulceration or induration noted. Neurological: 2 out of 5 strength bilateral lower extremity with hip flexion, knee extension flexion and ankle dorsiflexion and plantarflexion. Severely diminished, nearly absent pain response to bilateral lower extremities. Intact strength and sensation of bilateral upper extremities. Past Medical History Past Medical History: Diagnosis Date AVM (arteriovenous malformation) brain Diabetes mellitus (HCC) Disease of thyroid gland Fibromyalgia Headache Seizures (HCC) Stroke (HCC) tia and cva Past Surgical History Past Surgical History: Procedure Laterality Date SECTION CHOLECYSTECTOMY fallopian tube removal HYSTERECTOMY left post tibial tendon repair right post tibial tendon repair WISDOM TOOTH EXTRACTION Family History Family History Problem Relation Age of Onset Anxiety Mother Alcohol abuse Maternal Uncle Social History Social History Socioeconomic History Marital status: Spouse name: Not on file Number of children: Not on file Years of education: Not on file Highest education level: Not on file Social Needs Financial resource strain: Not on file Food insecurity - worry: Not on file Food insecurity - inability: Not on file Transportation needs - medical: Not on file Transportation needs - non-medical: Not on file Occupational History Not on file Tobacco Use Smoking status: Never Smoker Substance and Sexual Activity Alcohol use: Yes Drug use: No Sexual activity: Not on file Other Topics Concern Not on file Social History Narrative Not on file Allergies Allergies Allergen Reactions Ct: Iodinated Contrast- Oral And Iv Dye GI Intolerance Other reaction(s): GI Upset Iodine Other reaction(s): GI Upset Metformin Diarrhea XR and plain XR and plain Morphine Other reaction(s): Other: See Comments Muscle contractions all over Nortriptyline Other reaction(s): Other: See Comments sugar drops and heart issues Other reaction(s): Other (See Comments) sugar drops and heart issues Sulfa (Sulfonamide Antibiotics) Hives Medications Delmy Buchanan Home Medication Instructions Prior to Surgery [id number] Printed on:07/11/18 6837 Medication Information Take last dose on Take the morning of surgery Comment(s) ACCU-CHEK SMARTVIEW TEST STRIP strips check 4 times every day and as needed aspirin 325 MG EC tablet Take 1 tablet (325 mg total) by mouth daily. cholecalciferol, vitamin D3, 50,000 unit capsule Take 50,000 Units by mouth . diclofenac sodium 1 % Gel Apply 1-2 grams topically to affected area 4 times per day NEEDED for pain.] gabapentin (NEURONTIN) 100 MG capsule Take 100 mg by mouth every 8 (eight) hours 3 tabs 3 x's daily . insulin glargine (LANTUS) 100 unit/mL (3 mL) InPn Inject 10 Units under the skin . JARDIANCE 25 mg Tab Take 1 tablet by mouth every morning. lancets (ACCU-CHEK SOFTCLIX LANCETS) Misc Test Blood sugars once daily liraglutide (VICTOZA 3-ENEIDA) 0.6 mg/0.1 mL (18 mg/3 mL) Pen Inject 1.8 mg under the skin daily . omeprazole (PRILOSEC) 40 MG capsule Take 40 mg by mouth daily . ondansetron (ZOFRAN-ODT) 4 MG disintegrating tablet thyroid (ARMOUR) 30 mg tablet Take 30 mg by mouth every morning . topiramate (TOPAMAX) 25 MG tablet Take 2 (two) tablets (50 mg total) by mouth every morning. traMADol (ULTRAM) 50 mg tablet Take 50 mg by mouth . UNIFINE PENTIPS 31 gauge x 5/16 Ndle Use as directed 4 times a day MEDICAL DECISION MAKING All nursing notes reviewed. Patient a 37-year-old female who presents for evaluation status post initial assessment at outside hospital x2 earlier today for bilateral lower extremity weakness. Initial vital signs are within normal limits. Upon patient's arrival I did speak with respiratory therapy and asked them to complete a negative inspiratory force, was found to be within normal limits. 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 BMP and CBC are within normal limits. Serum test is negative. Chest x-ray is normal. CT head demonstrates no acute intracranial abnormality. Patient will be admitted for further monitoring and neurology evaluation. Impression: SNOMED CT(R) 1. Weakness of lower extremity, unspecified laterality PARESIS OF LOWER EXTREMITY 2. Decreased sensation of lower extremity ABNORMAL SENSATION Disposition: ED Disposition ED Disposition Condition Comment Hospitalize Phone call required?: No Labs Reviewed BASIC METABOLIC PANEL - Abnormal; Notable for the following components: Result Value Glucose 123 (*) BUN/Creatinine Ratio 20.3 (*) All other components within normal limits Narrative: The eGFR should be used for monitoring renal function only and not for medication dosing. CBC WITH AUTO DIFFERENTIAL - Abnormal; Notable for the following components: Eosinophils Abs 0.55 (*) All other components within normal limits HCG, SERUM, QUALITATIVE - Normal Narrative: Negative: The result is less than or equal to 5 mIU/mL of HCG. HEPATIC FUNCTION PANEL - Normal LACTIC ACID, PLASMA - Normal TSH WITH REFLEX FREE T4 - Normal CBC AND DIFFERENTIAL Narrative: The following orders were created for panel order CBC w/ Diff. Procedure Abnormality Status --------- ------ CBC Auto Differential[[id number]] Abnormal Final result Please view results for these tests on the individual orders. URINALYSIS Radiographic Imaging (if any) During ED Visit XR Chest 1 View Final Result No acute process. Workstation ID: [id number] CT Head Or Brain Without Contrast (Results Pending) Medications Ordered/Given During ED Visit Medications - No data to display (Please note that portions of this note may have been completed with a voice recognition program.) Tarsha Ness MD 07/11/182124 Patient resting comfortably. NAD. VSS. Respirs even and unlabored. Skin warm, pink, dry and intact. Call light in reach. Updated on plan of care. Denies needs at this time. Will continue to monitor. Patient just returned from CAT scan. Patient resting comfortably. NAD. VSS. Respirs even and unlabored. Skin warm, pink, dry and intact. Call light in reach. Updated on plan of care. Denies needs at this time. Will continue to monitor. Transfer center note: Serina Rendon NP requests patient be transferred to [facility] since her neurologist is there. Pt hx of Guillain Walton in 2018. States bilateral lower extremity numbness starting yesterday evening. Seen in a local ER and sent home. Returns today due to no movement of lower extremities. Pt able to feel pressure, but no sensations. Pt reports a GI bug per APPRENTICE PAINTER NECKTIES last week. RAVEN Damon states pt's numbness to the top of her bilateral legs. States ended at same during area last year's episode. Bed: 36 Expected date: Expected time: Means of arrival: Comments: CC15/leg weakness/[place] tsf in this encounter Ordered Prescriptions (unrec ognized section and content) Prescription Sig Dispensed Refills Start Date End Da te topiramate (TOPAMAX) 50 MG tablet Take 1 tablet by mouth 2 times daily 60 tablet 3 05/09/2020 gabapentin (NEURONTIN) 300 MG capsule Take 2 capsules by mouth 3 times daily for 180 days. 90 capsule 3 05/09/2020 11/05/2020 <item><item> Privacy Markings (unrecogniz ed section and content) Section Author: Jocelyne Petersen PROHIBITION ON REDISCLOSURE OF CONFIDENTIAL INFORMATION This notice accompanies a disclosure of information concerning a client made to you with the consent of such client. Section Author: Jocelyne Petersen PROHIBITION ON REDISCLOSURE OF CONFIDENTIAL INFORMATION This notice accompanies a disclosure of information concerning a client made to you with the consent of such client. Care Teams (unrecognized sec tion and content) Assistant Shift Supervisor Relationship Specialty Start Date End Date Charis Espinal MD PCP - General Family Medicine 04/18/15 Assistant Shift Supervisor Relationship Specialty Start Date End Date Charis Espinal MD PCP - General Family Medicine 04/18/15 Assistant Shift Supervisor Relationship Specialty Start Date End Date Jhonny Valladares [address] [place] [address] PCP - General Family Medicine 11/08/18 Assistant Shift Supervisor Relationship Specialty Start Date End Date Jhonny Valladares MD [address] [place] [address] PCP - General Family Medicine 11/08/18 Pranav Landa DO [address] [place] [address] Gastroenterology 11/17/22 Assistant Shift Supervisor Relationship Specialty Start Date End Date Jhonny Valladares MD [address] [place] [address] PCP - General Family Medicine 11/08/18 Pranav Ladna DO [address] [place] [address] Gastroenterology 11/17/22 Assistant Shift Supervisor Relationship Specialty Start Date End Date Jhonny Valladares MD [address] [place] [address] PCP - General Family Medicine 11/08/18 Pranav Landa DO [address] [place], [place] [id number] Gastroenterology 11/17/22 Assistant Shift Supervisor Relationship Specialty Start Date End Date Charis Espinal MD PCP - General Family Medicine 04/18/15 Assistant Shift Supervisor Relationship Specialty Start Date End Date Jhonny Valladares MD [address] [place], [place] [id number] PCP - General Family Medicine 11/08/18 Pranav Landa DO [address] [place], [place] [address] Gastroenterology 11/17/22 Source Comments (unrecognize d section and content) In the event this informatio n is protected by the Federal Confidentiality of Alcohol and Drug Abuse Patient Records regulations: The Federal rules restrict any use of the information to criminally investigate or prosecute any alcohol or drug abuse patient.[facility] the event this information is protected by the Federal Confidentiality of Alcohol and Drug Abuse Patient Records regulations: The Federal rules restrict any use of the information to criminally investigate or prosecute any alcohol or drug abuse patient.[facility] the event this information is protected by the Federal Confidentiality of Alcohol and Drug Abuse Patient Records regulations: The Federal rules restrict any use of the information to criminally investigate or prosecute any alcohol or drug abuse patient.[facility] the event this information is protected by the Federal Confidentiality of Alcohol and Drug Abuse Patient Records regulations: The Federal rules restrict any use of the information to criminally investigate or prosecute any alcohol or drug abuse patient.[facility] the event this information is protected by the Federal Confidentiality of Alcohol and Drug Abuse Patient Records regulations: The Federal rules restrict any use of the information to criminally investigate or prosecute any alcohol or drug abuse patient.[facility] the event this information is protected by the Federal Confidentiality of Alcohol and Drug Abuse Patient Records regulations: The Federal rules restrict any use of the information to criminally investigate or prosecute any alcohol or drug abuse patient.[facility] FOR RECORDS PERTAINING TO PATIENTS WHO ARE OR HAVE BEEN ENROLLED IN A CHEMICAL DEPENDENCY/SUBSTANCEABUSE PROGRAM, SOME INFORMATION MAY BE OMITTED. This clinical summary was aggregated from multiple sources. Caution should be exercised in using it in the provision of clinical care. This summary normalizes information from multiple sources, and as a consequence, information in this document may materially change the coding, format and clinical context of patient data. In addition, data may be omitted in some cases. CLINICAL DECISIONS SHOULD BE BASED ON THE PRIMARY CLINICAL RECORDS. [employer] [facility]. provides no warranty or guarantee of the accuracy or completeness of information in this document.
[2024-02-28 19:53] LABS: Amphetamine Urine VISTA POSITIVE (<1000 ng/mL); Barbiturate Urine VISTA NEGATIVE (< 200 ng/mL); Benzodiazepine Urine VISTA NEGATIVE (< 200 ng/mL); Cocaine Urine VISTA NEGATIVE (< 300 ng/mL); Ecstacy Urine VISTA NEGATIVE (< 500 ng/mL); Methadone Urine VISTA NEGATIVE (< 300 ng/mL); PCP Urine VISTA NEGATIVE (< 25 ng/mL); THC Urine VISTA NEGATIVE (< 50 ng/mL); Vista UDS pH Range 5
[2024-02-28 19:57] LABS: Bacteria RARE /hpf (None Seen); Squamous Epithelial Cells - UA 0-5 SEEN /hpf (5-10); White Blood Cells 0-5 SEEN /hpf (0-5)
[2024-02-28 20:00] VITALS: BP 158/101; PULSE 80; O2SAT 98
[2024-02-28 21:00] VITALS: BP 129/78
[2024-02-28] MEDS: Ketorolac 15 MG/ML Vial IV (21:45)
[2024-02-28 21:51] VITALS: BP 139/87; PULSE 81; RESP 18; TEMP 36.6; O2SAT 98
== END 2024-02-28 22:21 | disposition home or self-care (01) ==
PROVIDERS: Emergency Provider Emergency Medicine; PCP Family Medicine; Visit Provider Emergency Medicine
DX: F15.10 Other stimulant abuse, uncomplicated (principal); E11.22 Type 2 diabetes mellitus with diabetic chronic kidney disease; R41.82 Altered mental status, unspecified; I12.9 Hypertensive chronic kidney disease with stage 1 through stage 4 chronic kidney disease, or unspecified chronic kidney disease; N18.9 Chronic kidney disease, unspecified; M54.9 Dorsalgia, unspecified; E78.5 Hyperlipidemia, unspecified; R51.9 Headache, unspecified
CPT/HCPCS: 70450; 71045; 72125; 72128; 72131; 80048; 80076; 80307; 81001; 82009; 82077; 82803; 83690; 83880; 84484; 84702; 85027; 87631; 93005; 96361; 96374; 96375; 99285; J7030; J2405

== ENCOUNTER 2024-03-26 01:59 | Emergency (ER) | payer MEDICARE, SELFPAY ==
[2024-03-26] VITALS (9 sets, daily range): BP systolic 129–168; BP diastolic 60–104; PULSE 69–120; RESP 16–19; TEMP 36.2–36.8; O2SAT 93–99; BMI 25.5
[2024-03-26 02:26] LABS: Bedside Glucose 176 mg/dL (74-106)
--- NOTE | 2024-03-26 02:59 | EKG12_ITS ---
Test Reason : OVERDOSE Blood Pressure : */* mmHG Vent. Rate : 95 BPM Atrial Rate : 95 BPM P-R Int : 116 ms QRS Dur : 84 ms QT Int : 338 ms P-R-T Axes : 54 35 51 degrees QTcB Int : 424 ms Normal sinus rhythm Normal ECG Confirmed by ANIKA ELIZONDO, STACI ([id number]), managing editor SYMONE BLISS ([id number]) on 03/27/2024 9:40:31 AM Referred By: Confirmed By: STACI DONALDSON MD
[2024-03-26 03:08] LABS: Absolute Lymphocyte Count 2.69 X10^3/uL (0.83-4.51); Basophil# 0.04 X10^3/uL; Basophil% 0.6 % (0-1); Eosinophil# 0.36 X10^3/uL; Eosinophils% 5.4 % (0-5); Hemoglobin 13.8 g/dL (12.0-15.0); Lymphocyte # 2.69 X10^3/ul (0.83-4.51); Lymphocyte % 40.1 % (19-41); Mean Corp Hgb Conc 34.5 g/dL (32-36); Mean Corpuscular Hgb 26.7 pg (27.0-32.0); Mean Corpuscular Volume 77.5 fL (81-99); Monocyte# 0.62 X10^3/uL; Monocyte% 9.3 % (0-10); NRBC Flagged by Analyzer 0 % (0-5); Neutrophil # 2.97 X10^3/uL (2.7-7.7); Neutrophil % 44.3 % (47-70); Platelet Count 232 K/mm3 (150-450); RBC Distribution Width CV 13.1 % (11.6-14.6); RBC Distribution Width SD 36.5 fl (35.1-43.9); Red Blood Count 5.16 M/mm3 (4.2-5.4); White Blood Count 6.7 K/mm3 (4.4-11.0)
[2024-03-26 03:17] LABS: Alcohol, Blood (Medical)-Serum < 3.0 mg/dL
[2024-03-26 03:19] LABS: Anion Gap 5 (5-15); BUN 16 mg/dL (7-18); BUN/Creat Ratio 26.4 RATIO (10-20); Calcium,Total 9.5 mg/dL (8.5-10.1); Chloride 107 mmol/L (98-107); Creatinine, Serum 0.61 mg/dL (0.55-1.02); EST Glomerular Filtration Rate 115 mL/min (>60); Est Glom Filt Rate - Afr Amer 139 mL/min (>60); Estimated Creatinine Clearance 122.03 ml/min; Glucose 198 mg/dL (74-106); Potassium 3.5 mmol/L (3.5-5.1); Sodium Level 138 mmol/L (136-145)
[2024-03-26 03:27] LABS: Acetaminophen (Tylenol) Level < 2.0 ug/mL (10.0-30.0); Salicylate < 1.7 mg/dL (2.8-20.0)
--- NOTE | 2024-03-26 03:28 | ED.RN ---
Spoke to Sgt Ghosh, [facility], he reports based on lack of evidence on scene and report from significant other, he is not completing a pink slip. He states boyfriend reported that she does this whenever she gets in trouble with the law, or she needs attention, she says she wants to kill herself or says that she did something to end her life but really didn't. Sgt Ghosh reports finding no pill bottles in the residence.
[2024-03-26 03:46] LABS: Amphetamine Urine VISTA POSITIVE (<1000 ng/mL); Barbiturate Urine VISTA NEGATIVE (< 200 ng/mL); Benzodiazepine Urine VISTA NEGATIVE (< 200 ng/mL); Cocaine Urine VISTA NEGATIVE (< 300 ng/mL); Ecstacy Urine VISTA POSITIVE (< 500 ng/mL); Methadone Urine VISTA NEGATIVE (< 300 ng/mL); PCP Urine VISTA NEGATIVE (< 25 ng/mL); THC Urine VISTA NEGATIVE (< 50 ng/mL); Vista UDS pH Range 6
[2024-03-26 04:04] LABS: Internal QC Validated? YES +Cl - CLEAR BKGD; Pregnancy, Urine Negative Negative; Record Kit Lot#,Urine Preg 869294
[2024-03-26 04:24] LABS: CPK Total, Creatine Kinase 33 U/L (26-192)
--- NOTE | 2024-03-26 04:33 | ED.RN ---
CRISIS CALLED, CHART FAXED
--- NOTE | 2024-03-26 05:58 | EDS_ITS ---
HPI History of Present Illness Chief Complaint: Overdose Informant: EMS and police/slitter operator Narrative Narrative: Patient is a 43-year-old female with past medical history of anxiety and depression. Crisis center states that they received a text reportedly from the patient stating that she wanted to end her life and was going to do so by overdosing on sleeping pills. They sent this text to police who arrived to the patient's home with EMS. When they arrived they state patient was lethargic but overall stable and protecting her airway. They state that they did not find any pills on scene. However the patient is not answering questions and with concern she may truly overdose she was brought in for evaluation [facility] Medical History Gram-negative bacteremia Insulin dependent diabetes mellitus Wears glasses Acne Depression Anxiety Marijuana use Thyroid disease Rheumatoid arthritis Fibromyalgia Hepatitis Fatty liver Restless legs Back pain TIA (transient ischemic attack) Epilepsy Dietary restriction Difficulty swallowing History of hiatal hernia History of IBS History of echocardiogram Cardiology follow-up encounter Gastroparesis HTN (hypertension) AVM (arteriovenous malformation) brain Seizure disorder Home Medications ?Medication ?Instructions ?Recorded ?Last Taken ?Type flash glucose sensor (FreeStyle #6 ea 01/12/23 Unknown Rx Janee 2 Sensor kit) Mounjaro 15 mg/0.5 mL subcutaneous 15 mg (0.5 mL) subcut QWEEK #6 mL 03/18/23 07/11/23 Rx pen injector (tirzepatide) FreeStyle Janee 3 Sensor #6 ea 06/28/23 Unknown Rx (blood-glucose sensor) Allergy/AdvReac Type Severity Reaction Status Date / Time Sulfa (Sulfonamide Allergy Intermediate Hives Verified 03/26/24 02:00 Antibiotics) Iodinated Contrast Media Allergy Mild Rash Verified 03/26/24 02:00 nortriptyline AdvReac Severe Other Verified 03/26/24 02:00 metformin AdvReac Intermediate Diarrhea Verified 03/26/24 02:00 morphine AdvReac Itching Verified 03/26/24 02:00 Family History Father GERD (gastroesophageal reflux disease) Mother Rheumatoid arthritis Other Anxiety Arthritis Autoimmune disorder Surgical History Status post left foot surgery Status post right foot surgery History of section History of esophagogastroduodenoscopy (EGD) Hx of appendectomy S/P cholecystectomy S/P hysterectomy History of surgery of uterus Social History household members: none Smoking Status: Never smoker alcohol intake: current alcohol intake frequency: holidays/special occasions only substance use type: does not use what type of physical activity do you participate in: walking frequency: 3-4 times per week ROS ROS ED ROS Narrative Review of systems is unable to be obtained secondary to patient's lethargy and unwillingness to answer questions Review of Systems ROS Unobtainable: due to mental status EXAM Physical Exam Const Vital Signs: 03/26/24 01:59 03/26/24 02:59 03/26/24 03:00 Temperature 97.1 F L Temperature Source Oral Pulse Rate 120 H 78 76 Respiratory Rate 17 16 16 Blood Pressure 155/104 H 129/78 H 133/95 H Blood Pressure Mean 121 95 107 Pulse Ox 98 99 99 Oxygen Delivery Method Room Air 03/26/24 05:00 Temperature Temperature Source Pulse Rate 93 Respiratory Rate Blood Pressure 132/81 H Blood Pressure Mean 98 Pulse Ox 93 Oxygen Delivery Method Room Air Positive well nourished, well developed and obese General Appearance ED: well developed; Negative for pallor Nutritional Appearance: obese HEENT Reports moist mucous membranes HEENT Narrative: No tongue or cheek biting to suggest seizure activity Head is normocephalic atraumatic No signs of infection noted in the posterior pharynx Eyes EOMs intact bilaterally Eyes Narrative: Pupils are dilated and sluggish to respond to light concerning for sleeping pill benzodiazepine or alcohol ingestion General Eye ED: Negative for scleral icterus Neck supple Neck Narrative: No nuchal rigidity or meningeal signs Chest Wall palpation of chest normal Resp normal respiratory effort and clear to auscultation bilaterally Resp Narrative: No nasal flaring retractions tachypnea or accessory muscle use No signs of respiratory distress Cardio regular rhythm Rate: tachycardic GI normal to inspection, nondistended, normoactive bowel sounds, non-tender, non- distended and no masses GI Narrative: No voluntary guarding or rigidity or pulsatile mass Auscultation: normoactive bowel sounds Palpation: soft Extremity normal to inspection Extremity Narrative: No asymmetric edema no pitting edema negative Homans' sign bilaterally No signs of long bone trauma Neuro CN's II-XII intact bilaterally Neuro Narrative: Patient has GCS of 13 She is lethargic but awakes to voice and follows commands and cranial nerves II through XII are grossly intact without focal neurologic deficit Sensorium / Orientation: lethargic Psych Psych Narrative: Patient has depressed/flat affect. She refuses to answer questions but according to crisis center and police she wanted to overdose on sleeping pills secondary to worsening depression Skin no rashes or lesions noted and no wounds General Skin Exam: Negative for jaundice or pallor MDM MDM MDM Narrative Medical decision making narrative: Patient arrived to ER mildly tachycardic but otherwise with stable vitals. She was lethargic but protecting her airway and therefore there is no need for intubation. She would awake to voice and follow commands but did not answer questions and she does not have signs of acute stroke. Based on crisis center and police report patient sending a text that she wanted to overdose I did elect to perform basic laboratory studies. Labs showed no signs of acute loss anemia leukocytosis or left shift to suggest infection no signs of acute kidney injury or clinically significant electrolyte abnormality. The patient did test positive for amphetamines and ecstasy so therefore a CPK level was added but was normal going against rhabdomyolysis. At this time as the patient will awake to voice and protect her airway and follow commands she is medically cleared and crisis center was contacted. Crisis center evaluated the patient in the ER and they do feel that with her text to the center earlier this evening with apparent overdose and history of polysubstance abuse that she would be best treated in an inpatient facility. Therefore the patient was pink slipped and crisis center will work on a accepting facility. The patient is still pending acceptance and therefore will be signed out to day physician Dr. Jensen. The patient is hemodynamically stable and medically cleared from emergency room standpoint History & Record Review Discussion w/independent historian: EMS personnel Lab Data Attestation: I reviewed the patient's lab results. Labs: Laboratory Results - last 24 hr 03/26/24 03/26/24 03/26/24 02:07 02:54 03:13 WBC 6.7 RBC 5.16 Hgb 13.8 Hct 40.0 MCV 77.5 L MCH 26.7 L MCHC 34.5 RDW Std Deviation 36.5 RDW Coeff of Quentin 13.1 Plt Count 232 MPV 10.0 Immature Gran % (Auto) 0.300 Neut % (Auto) 44.3 L Lymph % (Auto) 40.1 [place] % (Auto) 9.3 Eos % (Auto) 5.4 H Baso % (Auto) 0.6 Absolute Neuts (auto) 3.0 Absolute Lymphs (auto) 2.69 Nucleated RBC % 0 Sodium 138 Potassium 3.5 Chloride 107 Carbon Dioxide 26.0 Anion Gap 5 BUN 16 Creatinine 0.61 Estim Creat Clear Calc 122.03 Est GFR (MDRD) Af Amer 139 Est GFR (MDRD) Non-Af 115 BUN/Creatinine Ratio 26.4 H Glucose 198 H Calcium 9.5 Total Creatine Kinase 33 Urine Test Negative Salicylates < 1.7 L Urine Opiates Screen NEGATIVE Urine Methadone Screen NEGATIVE Acetaminophen < 2.0 L Ur Barbiturates Screen NEGATIVE Ur Phencyclidine Scrn NEGATIVE Ur Amphetamines Screen POSITIVE H MDMA (Ecstasy) Screen POSITIVE H U Benzodiazepines Scrn NEGATIVE Urine Cocaine Screen NEGATIVE U Cannabinoids Screen NEGATIVE Ur Drug Screen Comment Ethyl Alcohol < 3.0 POC Glucose 176 H Discharge Plan Triage Chief Complaint: Overdose ED Provider: Michael Hernandez Dx/Rx/DC Orders Clinical Impression: Polysubstance abuse, Overdose, Anxiety and depression, HTN (hypertension) Prescriptions: No Action (DME) FreeStyle Janee 2 Sensor Kit See Rx Instructions .Route Qty: 6 3RF Rx Instructions: As directed Mounjaro 15 mg/0.5 mL pen injector 15 mg subcut QWEEK Qty: 6 1RF (DME) FreeStyle Janee 3 Sensor Device See Rx Instructions .Route Qty: 6 1RF Rx Instructions: As directed Primary Care Provider: Jhonny Valladares Referrals: Jhonny Valladares MD [Primary Care Provider] - Print Language: Nigerian Disposition Disposition: Psychiatric Hospital or Unit
--- NOTE | 2024-03-26 06:50 | ED.RN ---
Familia Gomez, roommate, Pt gives permission to speak to Familia about her care.
--- NOTE | 2024-03-26 10:14 | NURSING ---
report given to Jacqueline HOWELL
== END 2024-03-26 10:15 ==
PROVIDERS: Emergency Provider Emergency Medicine; PCP Family Medicine; Visit Provider Emergency Medicine
DX: T65.892A Toxic effect of other specified substances, intentional self-harm, initial encounter (principal); E11.43 Type 2 diabetes mellitus with diabetic autonomic (poly)neuropathy; E66.9 Obesity, unspecified; Z86.73 Personal history of transient ischemic attack (TIA), and cerebral infarction without residual deficits
CPT/HCPCS: 80048; 80143; 80179; 80307; 81025; 82077; 82550; 82962; 85025; 93005; 99285

== ENCOUNTER 2024-04-29 20:48 | Emergency (ER) | payer MEDICARE, SELFPAY ==
[2024-04-29 20:49] VITALS: BP 133/96; PULSE 130; RESP 19; TEMP 36.7; O2SAT 99; BMI 25.2
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
--- NOTE | 2024-04-29 21:05 | EKG12_ITS ---
Test Reason : Blood Pressure : */* mmHG Vent. Rate : 122 BPM Atrial Rate : 122 BPM P-R Int : 122 ms QRS Dur : 74 ms QT Int : 318 ms P-R-T Axes : 56 39 54 degrees QTcB Int : 453 ms Sinus tachycardia Otherwise normal ECG When compared with ECG of 26-Mar-2024 03:07, No significant change was found Confirmed by ANIKA ELZIONDO, STACI ([id number]), editor magazine SYMONE BLISS ([id number]) on 05/01/2024 8:37:09 AM Referred By: COTY Confirmed By: STACI DONALDSON MD
[2024-04-29 21:15] LABS: Absolute Lymphocyte Count 2.17 X10^3/uL (0.83-4.51); Absolute Neutrophil Count 4.6 X10^3/uL (2.0-7.7); Basophil# 0.04 X10^3/uL; Basophil% 0.5 % (0-1); Eosinophil# 0.12 X10^3/uL; Eosinophils% 1.6 % (0-5); Hematocrit 42.4 % (37-47); Hemoglobin 14.3 g/dL (12.0-15.0); Lymphocyte # 2.17 X10^3/ul (0.83-4.51); Lymphocyte % 29.1 % (19-41); Mean Corp Hgb Conc 33.7 g/dL (32-36); Mean Corpuscular Volume 77.1 fL (81-99); Mean Platelet Vol. 10.6 fl (6.2-12.0); Monocyte# 0.54 X10^3/uL; Monocyte% 7.2 % (0-10); NRBC Flagged by Analyzer 0 % (0-5); Neutrophil # 4.56 X10^3/uL (2.7-7.7); Neutrophil % 61.3 % (47-70); Platelet Count 255 K/mm3 (150-450); RBC Distribution Width CV 13.9 % (11.6-14.6); RBC Distribution Width SD 38.5 fl (35.1-43.9); White Blood Count 7.5 K/mm3 (4.4-11.0)
[2024-04-29] MEDS: 0.9% Normal Saline (1000mL) 1,000 ML 999 ML IV (21:28)
--- NOTE | 2024-04-29 21:45 | RAD_ITS ---
EXAM: XR CHEST, 2 VIEWS CLINICAL INDICATION: cough TECHNIQUE: Frontal and lateral views of the chest. COMPARISON: 02/28/2024 FINDINGS: LUNGS AND PLEURAL SPACES: Unremarkable. No consolidation or edema. No pneumothorax. No effusion. HEART: Unremarkable. Cardiac silhouette not enlarged. MEDIASTINUM: Central airways and mediastinal contour are unremarkable. BONES/JOINTS: Unremarkable. No acute fracture. SOFT TISSUES: Unremarkable. RAD/Chest PA and Lateral IMPRESSION: No radiographic evidence of acute cardiopulmonary disease. Electronically Signed: Hemant Healy MD at 22:34 EST ,
[2024-04-29 21:54] LABS: Anion Gap 11 (5-15); BUN 22 mg/dL (7-18); BUN/Creat Ratio 20.4 RATIO (10-20); Calcium,Total 10.1 mg/dL (8.5-10.1); Chloride 101 mmol/L (98-107); Creatinine, Serum 1.08 mg/dL (0.55-1.02); EST Glomerular Filtration Rate 59 mL/min (>60); Est Glom Filt Rate - Afr Amer 71 mL/min (>60); Estimated Creatinine Clearance 63.52 ml/min; Glucose 345 mg/dL (74-106); Potassium 4.2 mmol/L (3.5-5.1); Sodium Level 133 mmol/L (136-145); Troponin-I HS 19 pg/mL (3.0-54.0)
[2024-04-29 22:11] VITALS: BP 119/90; PULSE 114; RESP 16; TEMP 36.1; O2SAT 99
== END 2024-04-29 22:21 ==
LOC: ED 22:16
PROVIDERS: Nurse Practitioner; Emergency Provider Emergency Medicine; PCP Family Medicine; Visit Provider Emergency Medicine
DX: R07.9 Chest pain, unspecified (principal); E11.43 Type 2 diabetes mellitus with diabetic autonomic (poly)neuropathy; R06.02 Shortness of breath; I10 Essential (primary) hypertension; Z87.891 Personal history of nicotine dependence; K31.84 Gastroparesis; X02.1XXA Exposure to smoke in controlled fire in building or structure, initial encounter
CPT/HCPCS: 71046; 80048; 84484; 85025; 93005; 96360; 99285; A4216

== ENCOUNTER → 2024-07-10 | Outpatient (CLI) | payer MEDICARE, SELFPAY ==
[2024-07-10 13:37] LABS: Free T3 6.5 pg/mL (2.18-3.98); Thyroid Stim Hormone (TSH) < 0.005 uIU/mL (0.300-4.200)
== END | disposition home or self-care (01) ==
LOC: LAB 12:00
PROVIDERS: PCP Family Medicine; Referring Provider Nurse Practitioner Family; Visit Provider Nurse Practitioner Family
DX: E03.9 Hypothyroidism, unspecified (principal)
CPT/HCPCS: 84439; 84443; 84481